=== PATIENT | female | born 1960 | race Caucasian/White ===

== ENCOUNTER 2017-12-04 20:54 | Emergency (ER) | payer MEDICAID, SELFPAY ==
[2017-12-04 20:54] VITALS: BP 162/91; PULSE 95; RESP 17; TEMP 36.5; O2SAT 90; BMI 37.8
--- NOTE | 2017-12-04 21:00 | RAD_ITS ---
STUDY: X-RAY - LEFT ANKLE REASON FOR EXAM: Female, 57 years old. Pain, injury TECHNIQUE: 3 view(s) of the ankle. COMPARISON: 04/30/2017 FINDINGS: There is no fracture. There is no osseous destruction. There is slight asymmetry of the ankle mortise. There is soft tissue swelling about the lateral malleolus. There is an ankle joint effusion. RAD/Ankle min 3 Views IMPRESSION: Soft tissue swelling about the lateral malleolus No fracture Suspicious for chronic instability Ankle joint effusion Electronically Signed: Vidal Castro MD at 21:41 EDT Tel , Service support ,
--- NOTE | 2017-12-04 22:01 | ED.DCSUM_ITS ---
- ER Visit Summary Date of Service: 12/04/17 Chief Complaint: Left ankle injury History of Present Illness: The patient is a 57 F who had surgery on her ankle in June by a physician in [place]. She states they removed tissue and cartilage. Today while showering she felt a pop in her left ankle and now has problems with weightbearing. She does not remember if she rolled her ankle. She has an appointment with that physician for follow-up on the of this month. Physical Examination: Vital signs significant for blood pressure of 162/91 and pulse ox of 90% on room air. Patient sitting upright in bed. She is alert and talkative. Head neck examination is normal. Heart is regular rate and rhythm. Lung sounds are clear. Abdomen is soft, obese, nontender. Left lower extremity examination was tenderness to palpation and edema over the lateral malleolus of the left ankle. She has strong distal pulses. There is no medial tenderness. She has no tenderness at the knee or hip. Test Results: Left ankle x-rays were obtained per nursing protocol. There is soft tissue swelling over the lateral malleolus. There is no fracture. There is suspicion for chronic instability. Emergency Department Course and Treatment: Patient will be given a single dose of oxycodone here in a home pack for tonight. She will be given a walking boot. She only has a walker at home. She is to follow-up with her orthopedist on the as scheduled. Treatment Plan: [] Disposition: Discharge Impression: Left ankle sprain This note was generated with [employer] dictation software. It may contain incorrect words, spelling, and punctuation that were not noted in review of the chart prior to signing ED Disposition - Plan for ED Patient: Chief Complaint: Lower Extremity Injury Referrals: Jose Kaplan MD [Primary Care Provider] -
--- NOTE | 2017-12-04 22:01 | ED.DEP ---
ED Disposition - Plan for ED Patient: Disposition: Home or Assisted Living Chief Complaint: Lower Extremity Injury Instructions: ED Sprain Ankle W X Ray Referrals: Jose Kaplan MD [Primary Care Provider] - Additional Instructions: Follow-up with your physician on the as scheduled.
[2017-12-04] MEDS: oxyCODONE 5 MG Tablet PO ×2 (22:14)
[2017-12-04 22:16] VITALS: BP 144/87; PULSE 86; RESP 15; O2SAT 98
== END 2017-12-04 22:23 | disposition home or self-care (01) ==
LOC: ED 22:06
PROVIDERS: Emergency Provider Emergency Medicine; Family Provider Family Medicine; PCP Family Medicine
DX: S93.402A Sprain of unspecified ligament of left ankle, initial encounter (principal); Z72.0 Tobacco use; Z79.891 Long term (current) use of opiate analgesic; X58.XXXA Exposure to other specified factors, initial encounter; Y93.E1 Activity, personal bathing and showering; Y92.002 Bathroom of unspecified non-institutional (private) residence as the place of occurrence of the external cause; Y99.8 Other external cause status
CPT/HCPCS: 73610; 99283

== ENCOUNTER 2018-01-27 18:36 | Emergency (ER) | payer MEDICAID, SELFPAY ==
[2018-01-27 18:37] VITALS: BP 172/89; PULSE 99; RESP 17; TEMP 36.4; O2SAT 99; BMI 36.0
[2018-01-27 18:56] VITALS: O2SAT 99
[2018-01-27] MEDS: Benzonatate 100 MG Capsule 200 MG PO (18:59)
[2018-01-27] MEDS: Naproxen 500 MG Tablet PO (18:59)
[2018-01-27 19:07] VITALS: PULSE 100; RESP 20
[2018-01-27] MEDS: Ipratropium/Albuterol Sulfate 3 ML AMPUL.NEB INHALATION (19:07)
--- NOTE | 2018-01-27 19:20 | RAD_ITS ---
STUDY: X-RAY CHEST REASON FOR EXAM: Female, 57 years old. Cough. TECHNIQUE: PA and lateral chest. COMPARISON: 10/21/2014. FINDINGS: The lungs are clear and expanded. There is no demonstrated pleural abnormality. Normal size heart. Normal mediastinum and mary. Normal visualized pulmonary arteries. Normal visualized aortic arch and descending thoracic aorta. Normal visualized thoracic spine. Normal visualized ribs, clavicles, and shoulders. There is no demonstrated abnormality of the visualized soft tissue structures of the upper abdomen. RAD/Chest PA and Lateral IMPRESSION: Normal x-ray examination of the chest. Electronically Signed: Pauly Christian MD at 19:30 EDT Tel , Service support ,
--- NOTE | 2018-01-27 20:20 | ED.VISSUMM ---
- ER Visit Summary Date of Service: 01/27/18 Chief Complaint: Cough History of Present Illness: The patient is a 57 F with a 2-day history of cough and congestion along with body aches. She complaints of sore throat and hoarse voice. She had subjective fevers and chills. She states that she has chest congestion, but is not been able to bring up much sputum with her cough. She is a smoker. Physical Examination: Blood pressure is 172/89, temperature 97.5, heart rate 99, respiratory rate 17, pulse ox 99% on room air. Patient sitting upright in bed. She does speak with a hoarse voice. Head neck examination reveals TMs to be clear bilaterally. She has mild posterior pharyngeal erythema. Uvula is midline. She is tolerating secretions well. Heart is regular rate and rhythm. Lung sounds are slightly diminished throughout. Abdomen is soft nontender. Test Results: Two-view chest x-ray is unremarkable. Rapid strep is negative. Emergency Department Course and Treatment: Patient was given a DuoNeb treatment here along with Tessalon Perles and Naprosyn. On repeat evaluation she does feel somewhat improved. She be given a prescription for Tessalon, albuterol inhaler, and Mucinex. Treatment Plan: [] Disposition: Discharge Impression: Viral URI This note was generated with [employer] dictation software. It may contain incorrect words, spelling, and punctuation that were not noted in review of the chart prior to signing ED Disposition - Plan for ED Patient: Chief Complaint: Cold Sx Referrals: Jose Kaplan MD [Primary Care Provider] -
--- NOTE | 2018-01-27 20:22 | ED.DEP ---
ED Disposition - Plan for ED Patient: Disposition: Home or Assisted Living Chief Complaint: Cold Sx Instructions: ED URI Viral Prescriptions: Albuterol Inhaler [Ventolin Hfa] 2 puff INHALATION Q4H PRN PRN #1 inhaler PRN Reason: Wheezing Benzonatate [Tessalon Perle] 200 mg PO TID PRN PRN #20 capsule PRN Reason: Cough Guaifenesin [Mucinex] 1,200 mg PO BID #10 tab Referrals: Jose Kaplan MD [Primary Care Provider] - 1 Week
[2018-01-27 20:28] VITALS: BP 134/85; PULSE 91; RESP 18; O2SAT 96
== END 2018-01-27 20:28 | disposition home or self-care (01) ==
PROVIDERS: Emergency Provider Emergency Medicine; Family Provider Family Medicine; PCP Family Medicine
DX: J06.9 Acute upper respiratory infection, unspecified (principal); F17.200 Nicotine dependence, unspecified, uncomplicated
CPT/HCPCS: 71046; 87880; 94640; 99283; A4216

== ENCOUNTER 2018-06-15 20:21 | Inpatient (IN) | payer MEDICAID, SELFPAY ==
[2018-06-15] VITALS (9 sets, daily range): BP systolic 98–181; BP diastolic 79–158; PULSE 153–180; RESP 18–53; TEMP 36.6–36.7; O2SAT 87–94; BMI 40.7; BMI 40.4; BMI 40.5
--- NOTE | 2018-06-15 20:40 | RAD_ITS ---
STUDY: X-RAY CHEST REASON FOR EXAM: Female, 58 years old. Dyspnea with shortness of breath TECHNIQUE: AP COMPARISON: 01/27/2018 FINDINGS: EKG leads project over the chest. Dense consolidation of the right lung base with distinct line along the superior margin. Small right pleural effusion. Patchy infiltrate along the left heart border is also identified. Normal size heart. Normal mediastinum and mary. Normal visualized pulmonary arteries. Normal visualized aortic arch and descending thoracic aorta. Normal visualized thoracic spine. Normal visualized ribs, clavicles, and shoulders. There is no demonstrated abnormality of the visualized soft tissue structures of the upper abdomen. RAD/Chest 1 View (Portable) IMPRESSION: 1. Right lower lobe airspace disease. Given distinct margin along the superior border, an air-fluid level cannot be excluded. Chest CT may be warranted. 2. Mild infiltrate in the left lung base could also represent pneumonia. Electronically Signed: Alejandro Arizmendi MD at 21:01 EST , Service support ,
--- NOTE | 2018-06-15 20:41 | EKG12_ITS ---
Test Reason : SOB Blood Pressure : / mmHG Vent. Rate : 226 BPM Atrial Rate : 159 BPM P-R Int : 000 ms QRS Dur : 068 ms QT Int : 182 ms P-R-T Axes : 000 048 121 degrees QTc Int : 353 ms Atrial fibrillation with rapid ventricular response with premature ventricular or aberrantly conducte d complexes Nonspecific ST and T wave abnormality Abnormal ECG Confirmed by SAMANTHA CHRISTIAN, KORI ([id number]), news editor TAMMIE WHEELER ([id number]) on 06/18/2018 10:06:30 AM Referred By: LORENA Confirmed By:KORI SINGH MD
[2018-06-15] MEDS: 0.9% Normal Saline 1,000 ML 150 ML IV (20:45)
[2018-06-15] MEDS: dilTIAZem 25 MG/5 ML Vial IV BOLUS ×2 (20:45→21:04)
[2018-06-15 21:17] LABS: Anion Gap 15 (5-15); BUN 57 mg/dL (7-18); BUN/Creat Ratio 30.8 RATIO (10-20); Calcium,Total 8.8 mg/dL (8.5-10.1); Chloride 98 mmol/L (98-107); Creatinine, Serum 1.85 mg/dL (0.55-1.02); EST Glomerular Filtration Rate 30 mL/min (>60); Est Glom Filt Rate - Afr Amer 36 mL/min (>60); Estimated Creatinine Clearance 29.32 ml/min; Glucose 144 mg/dL (74-106); Potassium 3.4 mmol/L (3.5-5.1); Sodium Level 135 mmol/L (136-145)
[2018-06-15 21:20] LABS: Absolute Lymphocyte Count 1.34 X10^3/ul (0.83-4.51); Basophil# 0.04 X10^3/uL; Basophil% 0.3 % (0-1); Hematocrit 49.7 % (37-47); Hemoglobin 16.8 g/dl (12.0-15.0); Lymphocyte # 1.34 X10^3/ul (4.0); Lymphocyte % 9.5 % (19-41); Mean Corp Hgb Conc 33.8 g/gl (32-36); Mean Corpuscular Hgb 29.4 pg (27.0-32.0); Mean Corpuscular Volume 86.9 fL (81-99); Monocyte# 0.58 X10^3/uL; Monocyte% 4.1 % (0-10); Neutrophil # 12.02 X10^3/uL (2.7-7.7); Neutrophil % 85.7 % (47-70); Platelet Count 190 K/mm3 (150-450); RBC Distribution Width CV 14.8 % (11.6-14.6); Red Blood Count 5.72 M/mm3 (4.2-5.4)
[2018-06-15 21:26] LABS: Differential Indicated SCAN CRITERIA MET; POSITIVE COUNT NO; POSITIVE DIFFERENTIAL NO; POSITIVE MORPHOLOGY YES
[2018-06-15 21:40] LABS: Lactic Acid 3.8 mmol/L (0.4-2.0)
--- NOTE | 2018-06-15 21:44 | ED.RN ---
dr. ontiveros aware of critical lactic 3.8
--- NOTE | 2018-06-15 21:50 | ED.VISSUMM ---
- ER Visit Summary Date of Service: 06/15/18 Chief Complaint: [Shortness of breath] History of Present Illness: The patient is a 58 F [presents to the emergency department with 2-day history of increasing shortness of breath. Patient also had a fever up to 103 at home and a cough. Patient denies any chest pain. She denies any palpitations or racing heart. Patient states she has had a cough but is been nonproductive. She denies recent travel or surgery. She tells me she has no medical history.] Physical Examination: [HEENT-PERRLA, EOMI. Cranial nerves II through XII grossly intact. TMs clear. Mucous membranes moist. No adenopathy. Cardiovascular-irregularly irregular and tachycardic with heart rate in the 220s. No murmurs auscultated. Lungs-diminished breath sounds bilaterally. Patient is tachypneic. No accessory muscle use or retractions. Abdomen-normoactive bowel sounds, soft, nontender, no rebound or rigidity, no peritoneal signs. Extremities-intact ?4, normal range of motion, normal pulses, atraumatic] Test Results: [EKG obtained showed atrial fibrillation with rapid ventricular response with ventricular rate of 226. Patient had nonspecific ST changes noted. CBC with differential obtained showed a white count of 14,000, hemoglobin 16.8, hematocrit 50, platelets 190. Chemistries unremarkable. BUN was 57 and creatinine 1.85. Troponin was less than 0.015. Chest x-ray showed left lower lobe infiltrate suspicious for pneumonia and also a right lung air-fluid level and recommended obtaining a CT scan of the chest.] Emergency Department Course and Treatment: [Patient was given Cardizem 20 mg IV bolus followed by 25 mg IV bolus and started on a Cardizem drip. Patient was started on heparin at the request of hospitalist. Patient was started on Levaquin for suspected community-acquired pneumonia. Blood cultures were ordered. Patient was ordered normal saline fluid boluses.] Treatment Plan: [Admit] Disposition: [Admit] Impression: [Uday kellogg RVR-new onset Community acquired pneumonia Severe sepsis] This note was generated with [employer] dictation software. It may contain incorrect words, spelling, and punctuation that were not noted in review of the chart prior to signing ED Disposition - Plan for ED Patient: Referrals: Jose Kaplan MD [Primary Care Provider] -
[2018-06-15] MEDS: 0.9% Normal Saline 1,000 ML 999 ML IV (21:54)
[2018-06-15 21:55] LABS: Platelet Estimate ADEQUATE (ADEQ); Platelet Morphology LARGE; Red Cell Morphology NORM C+C NORMAL (NORM C&C)
--- NOTE | 2018-06-15 21:56 | ED.DCSUM_ITS ---
- ER Visit Summary Date of Service: 06/15/18 Chief Complaint: [Shortness of breath] History of Present Illness: The patient is a 58 F [presents to the emergency department with 2-day history of increasing shortness of breath. Patient also had a fever up to 103 at home and a cough. Patient denies any chest pain. She denies any palpitations or racing heart. Patient states she has had a cough but is been nonproductive. She denies recent travel or surgery. She tells me she has no medical history.] Physical Examination: [HEENT-PERRLA, EOMI. Cranial nerves II through XII grossly intact. TMs clear. Mucous membranes moist. No adenopathy. Cardiovascular-irregularly irregular and tachycardic with heart rate in the 220s. No murmurs auscultated. Lungs-diminished breath sounds bilaterally. Patient is tachypneic. No accessory muscle use or retractions. Abdomen-normoactive bowel sounds, soft, nontender, no rebound or rigidity, no peritoneal signs. Extremities-intact ?4, normal range of motion, normal pulses, atraumatic] Test Results: [EKG obtained showed atrial fibrillation with rapid ventricular response with ventricular rate of 226. Patient had nonspecific ST changes noted. CBC with differential obtained showed a white count of 14,000, he moglobin 16.8, hematocrit 50, platelets 190. Chemistries unremarkable. BUN was 57 and creatinine 1.85. Troponin was less than 0.015. Chest x-ray showed left lower lobe infiltrate suspicious for pneumonia and also a right lung air-fluid level and recommended obtaining a CT scan of the chest.] Emergency Department Course and Treatment: [Patient was given Cardizem 20 mg IV bolus followed by 25 mg IV bolus and started on a Cardizem drip. Patient was started on heparin at the request of hospitalist. Patient was started on Levaquin for suspected community-acquired pneumonia. Blood cultures were ordered. Patient was ordered normal saline fluid boluses.] Treatment Plan: [Admit] Disposition: [Admit] Impression: [Uday kellogg RVR-new onset Community acquired pneumonia Severe sepsis] This note was generated with [employer] software. It may contain incorrect words, spelling, and punctuation that were not noted in review of the chart prior to signing ED Disposition - Plan for ED Patient: Referrals: Jose Kaplan MD [Primary Care Provider] -
[2018-06-15 22:06] LABS: Partial Thromboplast Time 31.3 Seconds (24.1-36.2)
[2018-06-15] MEDS: HEPARIN/D5w 25,000 UNITS 25,000 UNITS/250 ML IV.SOLN. 15 UNITS IV (22:07)
[2018-06-15] MEDS: levoFLOXacin IV 750 MG/150 ML BAG 100 MG IV (22:07)
[2018-06-15 22:25] LABS: BNP,B-Type NATRIURETIC PEPTIDE 159.1 pg/mL (0-100)
--- NOTE | 2018-06-15 22:36 | PCM.HP.STD ---
Problem List (1) Severe sepsis Status: Acute (2) Acute respiratory failure with hypoxia Status: Acute (3) Pneumonia Status: Acute Qualifiers: Pneumonia type: due to unspecified organism Laterality: bilateral Lung location: lower lobe of lung Qualified Code(s): J18.1 - Lobar pneumonia, unspecified organism (4) Atrial fibrillation with RVR Status: Acute (5) LYNNETTE (acute kidney injury) Status: Acute (6) Morbid obesity Status: Chronic (7) Tobacco use Status: Chronic History of Present Illness Date of Admission: 06/15/18 Chief Complaint: Dyspnea, cough, fever, chills. The patient is a 58 y/o F w/ PMHx: Tobacco use, Morbid Obesity who does not regularly seek medication evaluation who presents to the [facility] ED on 06/15/18 with history of ongoing, progressively worsening dyspnea, minimally productive cough with associated fevers and chills with poor oral intake x 4 days. In the ED upon evaluation she denies any recent palpitations or chest pain associated. In the ED work-up included T 98.1, heart rate 180--> 165, BP 174/100,--> 38/85, oxygenation 87% on 5 L nasal cannula initially with a respiratory rate of 18--> respiratory rate 38, 92% on a Ventimask, CBC w/ WBC 14, Hgb 16.8, Plt 190 with L shift, BMP Na 135, K 3.4, BUN/Cr 57/1.85, glucose 144, LA 3.8, trop < 0.015, BNP 159.1, given respiratory appearance requested respiratory therapy to obtain ABG which is not severe appearing despite notable tachypnea and intermittent desaturations with pH 7.4, O2 saturation 94, O2 percent 50, PCO2 36, PO2 69, EKG with atrial fibrillation with RVR, chest x-ray with right lower lobe airspace disease with concern for an air-fluid level given a very distinct margin along the superior border, mild infiltrate of the left lung base concerning for pneumonia. In the ED patient administered Cardizem 25 mg IV bolus x2 without market improvement and eventual transition to Cardizem drip, Levaquin 750 mg IV x1, potassium 40 mg p.o. x1, normal saline. Given patient appearance upon admission notify Dr. Wolf as well as Dr. Chavez. Past Medical History Past Medical History (Chronic Problems): Chronic Problems Morbid obesity (Chronic) Tobacco use (Chronic) Allergies aspirin Allergy (Verified 06/15/18 20:31) Swelling erythromycin base [Erythromycin Base] Allergy (Verified 06/15/18 20:31) Anaphylaxis Penicillins Allergy (Verified 06/15/18 20:31) Anaphylaxis venom-honey bee [bee venom (honey bee)] Adverse Reaction (Verified 06/15/18 20:31) Other Home Medications: Ambulatory Orders Medication Instructions Recorded NK 06/15/18 Surgical History: - - Left ankle surgery, left arm carpal tunnel surgery, tonsillectomy. Psychiatric History: - - She denies any psychiatric history but following evaluation suspect she has underlying anxiety and depression, possibly other psychiatric illnesses. 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 Smoking Status: Current every day smoker - Patient notes that she is currently smoking 2-3 cigarettes/day. Tobacco Use: Cigarettes Alcohol: None Drugs: None - *Family History Maternal History Items: - - Patient denies any marked maternal or paternal family history including heart disease, diabetes or cancer. Paternal History Items: - - Patient denies any marked maternal or paternal family history including heart disease, diabetes or cancer. Review of Systems Constitutional: Reports: Anorexia, Chills, Fever, Malaise, Weakness, Fatigue. Denies: Weight Change HEENT: Reports: Sinus Congestion, Sore Throat. Denies: Head Aches, Sinus Drainage Cardiovascular: Denies: Chest Pain, Palpitations Respiratory: Reports: Cough, Shortness of Breath, Shortness of breath at rest, Shortness of breath upon exertion, Sputum production - Minimal. Gastrointestinal: Denies: Abdominal Pain, Nausea, Vomiting Genitourinary: Denies: Dysuria Musculoskeletal: Reports: Joint Pain, Muscle pain. Denies: Joint Tenderness Skin: Denies: Rash, Wounds Neurological: Denies: Numbness, Tingling, Focal weakness Psychiatric: Reports: Anxiety. Denies: Depression, Homicidal Ideations, Suicidal Ideations Hematologic/ Lymphatic: Denies: Easy Bruising, Easy Bleeding VTE Information - Inpt Only VTE Present on Admission: No VTE Mechan Device Prophylaxis: SCD's VTE Pharm Prophylaxis ordered?: Yes Patient Problems: Active and Suspected Problems Severe sepsis (Acute) Acute respiratory failure with hypoxia (Acute) Pneumonia (Acute) Atrial fibrillation with RVR (Acute) LYNNETTE (acute kidney injury) (Acute) Subjective: Seated upright in the ED bed, mildly agitated, rocking back and forth, wishing not to have to stay, ongoing increased respiratory rate, mild accessory muscle usage, heart rate remains 150-160 while evaluating. Objective: Physical Examination: General: awake, alert, oriented x 3, intermittently cooperative, seated upright in ED bed, mildly agitated, increased respiratory rate, some accessory muscle usage, desaturating while in the ED on Ventimask, ongoing severe tachycardia. Skin: normal color, turgor, no icterus, cyanosis. HEENT: AT/NC, EOMI, PERRLA, dry MM, no carotid bruits or JVD noted. Lungs: Managed breath sounds bilaterally, right greater than left, mildly coarse, increased respiratory rate, some accessory muscle usage, no wheezing noted. Heart: Irregular irregular; no gallop, rub audible. Abdomen: soft, obese, NTTP, ND, normal BS, no HSM; her habitus makes examination difficult. Extremities: no cyanosis, clubbing, bilateral lower extremity mild ankle, nonpitting edema. Neurological: patient awake, alert, oriented x 3; cognitive function is back to baseline intact with suspected possible psychiatric disease; pupils equally reactive to light and accomodation; cranial nerves II-XII grossly normal, moving all 4 extremities, no focal deficits, strength severely globally decreased secondary to acute presentation. Psychiatric: affect appears agitated, notes she dislikes the hospital and physicians, appears anxious, no acute evidence of depressive feelings. - Physical Exam Vital Signs Temp Pulse Resp BP Pulse Ox 98.1 F 158 H 39 H 140/118 H 92 06/15/18 20:22 06/15/18 21:21 06/15/18 21:21 06/15/18 21:21 06/15/18 21:21 Oxygen Flow Rate (L/min) 5 Oxygen Delivery Method Venturi Mask Weight: 237 lb 7.005 oz Body Mass Index (BMI) 40.7 Laboratory Tests Past 24 Hrs 06/15/18 06/15/18 06/15/18 20:15 20:31 20:31 WBC 14.0 H RBC 5.72 H Hgb 16.8 H Hct 49.7 H MCV 86.9 MCH 29.4 MCHC 33.8 RDW 14.8 H RDW Differential 47.0 H Plt Count 190 MPV 12.0 Immature Gran % (Auto) 0.400 Neut % (Auto) 85.7 H Lymph % (Auto) 9.5 L Arthur % (Auto) 4.1 Eos % (Auto) 0.0 Baso % (Auto) 0.3 Absolute Neuts (auto) 12.0 H Absolute Lymphs (auto) 1.34 Total Counted Not Reportable Platelet Estimate ADEQUATE Plt Morphology Comment LARGE RBC Morphology NORM C+C APTT 31.3 Sodium 135 L Potassium 3.4 L Chloride 98 Carbon Dioxide 22.0 Anion Gap 15 BUN 57 H Creatinine 1.85 H Estim Creat Clear Calc 29.32 Est GFR (MDRD) Af Amer 36 L Est GFR (MDRD) Non-Af 30 L BUN/Creatinine Ratio 30.8 H Glucose 144 H Lactic Acid Calcium 8.8 Troponin I < 0.015 B-Natriuretic Peptide 06/15/18 06/15/18 20:31 20:50 WBC RBC Hgb Hct MCV MCH MCHC RDW RDW Differential Plt Count MPV Immature Gran % (Auto) Neut % (Auto) Lymph % (Auto) Arthur % (Auto) Eos % (Auto) Baso % (Auto) Absolute Neuts (auto) Absolute Lymphs (auto) Total Counted Platelet Estimate Plt Morphology Comment RBC Morphology APTT Sodium Potassium Chloride Carbon Dioxide Anion Gap BUN Creatinine Estim Creat Clear Calc Est GFR (MDRD) Af Amer Est GFR (MDRD) Non-Af BUN/Creatinine Ratio Glucose Lactic Acid 3.8 H Calcium Troponin I B-Natriuretic Peptide 159.1 H Assessment/Plan All Active Problems Severe sepsis (Acute) Acute respiratory failure with hypoxia (Acute) Pneumonia (Acute) Atrial fibrillation with RVR (Acute) LYNNETTE (acute kidney injury) (Acute) The patient is a 58 y/o F w/ PMHx: Tobacco use, Morbid Obesity who does not regularly seek medication evaluation who presents to the [facility] ED on 06/15/18 with history of ongoing, progressively worsening dyspnea, minimally productive cough with associated fevers and chills with poor oral intake x 4 days. In the ED upon evaluation she denies any recent palpitations or chest pain associated. (1) Acute Severe Sepsis secondary to Acute Hypoxic Respiratory Failure secondary to Community Acquired Pneumonia; however, concern for Air-Fluid Level R sided, ? empyema: ED work-up included T 98.1, heart rate 180--> 165, BP 174/100,--> 38/85, oxygenation 87% on 5 L nasal cannula initially with a respiratory rate of 18--> respiratory rate 38, 92% on a Ventimask, CBC w/ WBC 14, Hgb 16.8, Plt 190 with L shift, BMP Na 135, K 3.4, BUN/Cr 57/1.85, glucose 144, LA 3.8, trop < 0.015, BNP 159.1, given respiratory appearance requested respiratory therapy to obtain ABG which is not severe appearing despite notable tachypnea and intermittent desaturations with pH 7.4, O2 saturation 94, O2 percent 50, PCO2 36, PO2 69, EKG with atrial fibrillation with RVR, chest x-ray with right lower lobe airspace disease with concern for an air-fluid level given a very distinct margin along the superior border, mild infiltrate of the left lung base concerning for pneumonia. Will admit to ICU, given status requested RT evaluation for CPAP/BIPAP, maintain on oxygen with wean as tolerated to room air, continue ATC duonebs, PRN albuterol, maintained on IV Levaquin, HOB, IS parameters w/ pending sputum cultures, respiratory viral panel and urine antigens. Bld cx x 2 obtained in the ED. ICU physician consulted and aware. Given patient presentation and notable paroxysmal atrial fibrillation with onset respiratory symptoms may need to consider CTPA in addition however given LYNNETTE will need to hydrate and reassess in a.m. Regardless, will need CT chest of some form given right-sided findings. (2) New onset, Paroxsymal atrial fibrillation w/ RVR: EKG in ED w/ atrial fibrillation w/ RVR. Patient administered notable 25 mg Cardizem IV x2 and transition to a Cardizem drip in ED. Will maintain on telemetry, obtain cardiac enzyme serial set, obtain magnesium level, obtain ECHO, obtain TSH level. Initiated on heparin drip given presentation. Cardiology consulted and aware, evaluation in a.m. Given ongoing patient notable tachycardia despite Cardizem drip may require additional agent, will consider amiodarone versus digoxin if needed. (2) Acute kidney injury: Secondary to acute presentation #1, poor intake. Admission BUN/Cr 57/1.85, prior baseline creatinine noted to be 0.9. Will hydrate, hold nephrotoxic medications and repeat chemistry in AM. Pending FeNa assessment. If not improving will need to consider renal ultrasound. (3) Hyponatremia, Mild: Admission Na 135, likely hypovolemic, secondary to acute presentation as noted above #1, #2, #3, dehydration, repeat BMP in a.m. (4) Hyperglycemia: Admission glucose 144, HgbA1c pending. (5) Tobacco Abuse: Encouraged cessation, inpatient consultation per RT, NR if desired. (6) Morbid Obesity: Weight loss and lifestyle changes encouraged, nutrition consulted. (7) DVT prophylaxis: SCD, heparin drip. (8) CODE status: Patient sister is her healthcare power of patent attorney and she notes living will is in place. Discussed CODE status at length including difference between FULL code, DNR-CCA and DNR-CC status. Following discussions about the differences in these status, requested full code status. Advanced Care Planning Face to Face Time: 16 minutes. Code Visit Inpatient E&M: 61249 Init Hosp L3 Procedures: 86637 Advncd Care Plan 30 Min
[2018-06-15 23:06] LABS: Allen Test POS; Base Excess -3 mmol/L (-2 to +2); Bicarbonate 22.3 mmol/L (22-26); Blood Gas Specimen Type ART; FI02 50; PO2 69 mmHG (75-100); SITE L Radial; SO2 94 % (95-99); Time Given 2250; Total Carbon Dioxide 23 mmol/L
--- NOTE | 2018-06-15 23:41 | NURSING ---
Has cell phone at bedside. Jacket, slippers, shirt and pants.
[2018-06-15 23:51] LABS: Hemoglobin A1c 5.7 % (4.2-6.3)
[2018-06-15 23:52] LABS: Phosphorus 2.8 mg/dL (2.5-4.9); Thyroid Stim Hormone (TSH) 0.52 uIU/mL (0.358-3.74)
[2018-06-16] VITALS (103 sets, daily range): BP systolic 49–145; BP diastolic 33–119; PULSE 64–166; RESP 12–62; TEMP 37.1–39.1; O2SAT 91–100
[2018-06-16] MEDS: Ipratropium/Albuterol Sulfate 3 ML AMPUL.NEB INHALATION ×4 (00:05→18:34)
[2018-06-16 00:54] LABS: Reflex Lactate? Y
[2018-06-16] MEDS: Metoprolol Tartrate 5 MG/5 ML Vial IV (01:24)
[2018-06-16] MEDS: LORazepam 2 MG/ML Syringe 0.5 MG IV (01:25)
[2018-06-16] MEDS: 0.9% NaCl Peripheral Flush Adult/Peds IV ×3 (01:26→03:38)
[2018-06-16 01:52] LABS: Lactic Acid 1.7 mmol/L (0.4-2.0)
[2018-06-16] MEDS: 0.9% Normal Saline 1,000 ML 150 ML IV ×2 (02:57→04:27)
--- NOTE | 2018-06-16 03:00 | NURSING ---
Nurse entered room. Pt sitting up with BiPap mask in her lap. Pt animate about leaving AMA. Explained to pt the severity of the decision, and the possibility of , if she were to do so. Pt was able to answer all orientation questions appropriately, and continued to refuse care as planned. Left room and Dr. Hoang odonnell. Reported to Dr. marin pt's desire to leave AMA. Form printed and presented to pt for signature and attempt to negotiate with pt to stay and allow us to treat her overnight. Pt still refused. Pt sitting with legs crossed, style, and tripoding with respiratory rate in 40's-50's, while discussing AMA. Head lowered more, and nurse asked another question. Pt speech was slurred and incoherent. Positioned pt with shoulders back and pt was unresponsive. At 3:08 pt was unresponsive, with no pulse, and asystole on the monitor. Chest compressions started and Ladan Ferguson was called.
--- NOTE | 2018-06-16 03:02 | NURSING ---
This RN is made aware by pt's primary RN, Suman Moreno, pt wishing to leave AMA. Upon entering room pt sitting up in bed in tripod position with labored breathing, BiPAP mask in pt's hand laying on lap. Pt is firmly instructed that leaving hospital may be detrimental to pt's life considering work of breathing. This RN attempting to place BiPAP mask on pt and pt will not cooperate. Pt able to correctly answer orientation questions. Primary RN, Suman Moreno, bedside has made Dr. Bolton aware.
--- NOTE | 2018-06-16 03:08 | NURSING ---
Pt has become unresponsive to sternal rub, agonal respirations with cyanosis observed around mouth. Bag mask ventilation initiated, monitor reading asystole, no carotid or femoral pulses palpable. Code Blue is called by this RN at 0308, Chest compressions initiated by primary RN, Suman Moreno. See Code documentation.
[2018-06-16] MEDS: fentaNYL drip 100 ML 2.5 MCG IV ×2 (03:40→22:26)
--- NOTE | 2018-06-16 03:40 | RAD_ITS ---
STUDY: X-RAY - ABDOMEN/PELVIS REASON FOR EXAM: Female, 58 years old. An NG tube placement TECHNIQUE: 1 view COMPARISON: None. FINDINGS: The tip of a feeding tube is around the gastroesophageal junction. It needs to be standard distended about 10 to 15 cm. Electronically Signed: Kwesi Whalen MD at 5:01 EST Tel , Service support , RAD/Abdomen Single View
--- NOTE | 2018-06-16 03:40 | RAD_ITS ---
STUDY: X-RAY CHEST REASON FOR EXAM: Female, 58 years old. CODE BLUE TECHNIQUE: 1 view COMPARISON: None. FINDINGS: Improving consolidations in both lower lobes. The heart is enlarged. An NG tube and ET tube in place with the ET tube 5.3 cm above the isai. Normal visualized thoracic spine. Normal visualized ribs, clavicles, and shoulders. There is no demonstrated abnormality of the visualized soft tissue structures of the upper abdomen. RAD/Chest 1 View (Portable) IMPRESSION: NG tube and ET tube in place with the ET tube 5.3 cm above the isai. Improving consolidations in both lower nodes Electronically Signed: Kwesi Whalen MD at 4:59 EST Tel , Service support ,
--- NOTE | 2018-06-16 03:55 | PCM.HOSP.N ---
Hospitalist Note Intubation Note/CODE BLUE Note: Called by nursing staff the patient was very eager to leave despite frequent discussions that her respiratory status would be compromised. Hospitalist physician was contacted and nearly to the ICU to review options with the patient she was noted to remove her BIPAP and went about leaving AMA following which her oxygenation decreased and she became unresponsive. CODE BLUE was called. Patient was noted to be in asystole. CPR was initiated. Normal saline continued however patient drips were discontinued at that time temporarily. Hospitalist physician arrived and patient was administered epinephrine every 3 minutes times a total of 4 rounds during CODE BLUE with repeat rhythm check x2 pulseless patient intubated with a 7.5 ET tube with glide scope successfully entered fashion with visualization of the vocal cords with position verified with auscultation and color change during CODE BLUE. Patient had resumption of pulse at that time was noted to be in atrial fibrillation with pulse by Doppler. OG placed. CXR post intubation and OG placement requested and ABG requested. Patient map 61, HR 70s and noted to convert to sinus rhythm. Cardiology and ICU physician updated. Given patient ongoing low map requested initiation of low-dose norepinephrine. Family reached, Daughter who noted plan to present to the hospital. Following CODE blue, patient alert, answering questions with head node. Discussed need to remain intubated, noted to her possibility of chest soreness secondary to recent cardiac arrest secondary to likely pulmonary failure. She noted understanding to continue inpatient acute care given her status. We updated her that her daughter was contacted and on route to the hospital. Critical Care Time: 61 minutes, time from 3:05-4:06 am, were spent addressing patients critical care needs including code blue management as noted above, review of all data in collaboration with care team in addition to discussion with family. Code Visit Procedures: Other Procedure - See Report - [id number] critical care 1st hour and [id number] Insertion Emergency Airway
--- NOTE | 2018-06-16 04:10 | CCHN_ITS ---
Hospitalist Note Intubation Note/CODE BLUE Note: Called by nursing staff the patient was very eager to leave despite frequent discussions that her respiratory status would be compromised. Hospitalist physician was contacted and nearly to the ICU to review options with the patient she was noted to remove her BIPAP and went about leaving AMA following which her oxygenation decreased and she became unresponsive. CODE BLUE was called. Patient was noted to be in asystole. CPR was initiated. Normal saline continued however patient drips were discontinued at that time temporarily. Hospitalist physician arrived and patient was administered epinephrine every 3 minutes times a total of 4 rounds during CODE BLUE with repeat rhythm check x2 pulseless patient intubated with a 7.5 ET tube with glide scope successfully entered fashion with visualization of the vocal cords with position verified with auscultation and color change during CODE BLUE. Patient had resumption of pulse at that time was noted to be in atrial fibrillation with pulse by Doppler. OG placed. CXR post intubation and OG placement requested and ABG requested. Patient map 61, HR 70s and noted to convert to sinus rhythm. Cardiology and ICU physician updated. Given patient ongoing low map requested initiation of low- dose norepinephrine. Family reached, Daughter who noted plan to present to the hospital. Following CODE blue, patient alert, answering questions with head node. Discussed need to remain intubated, noted to her possibility of chest soreness secondary to recent cardiac arrest secondary to likely pulmonary failure. She noted understanding to continue inpatient acute care given her status. We updated her that her daughter was contacted and on route to the hospital. Critical Care Time: 61 minutes, time from 3:05-4:06 am, were spent addressing patients critical care needs including code blue management as noted above, review of all data in collaboration with care team in addition to discussion with family. Code Visit Procedures: Other Procedure - See Report - [id number] critical care 1st hour and [id number] Insertion Emergency Airway
[2018-06-16 04:24] LABS: Hematocrit 45.7 % (37-47); Hemoglobin 14.8 g/dl (12.0-15.0); Mean Corp Hgb Conc 32.4 g/gl (32-36); Mean Corpuscular Hgb 29.4 pg (27.0-32.0); Mean Corpuscular Volume 90.7 fL (81-99); Mean Platelet Vol. 12.1 fl (6.2-12.0); Platelet Count 164 K/mm3 (150-450); RBC Distribution Width CV 15.1 % (11.6-14.6); RBC Distribution Width SD 50.3 fl (35.1-43.9); Red Blood Count 5.04 M/mm3 (4.2-5.4); White Blood Count 16.2 K/mm3 (4.4-11.0)
[2018-06-16 04:31] LABS: Partial Thromboplast Time 67.6 Seconds (24.1-36.2)
[2018-06-16 04:33] LABS: Differential Indicated MANUAL DIFF; POSITIVE COUNT YES; POSITIVE DIFFERENTIAL NO; POSITIVE MORPHOLOGY YES
[2018-06-16 04:34] LABS: Magnesium 2.6 mg/dL (1.6-2.6); Phosphorus 8.5 mg/dL (2.5-4.9)
[2018-06-16 04:43] LABS: ALB/GLOB Ratio 0.5 RATIO (0.9-2.4); AST(SGOT) 546 U/L (15-37); Alanine Aminotransfer ALT/SGPT 203 U/L (13-56); Albumin, Serum 2.1 g/dL (3.2-5.0); Alkaline Phosphatase 69 U/L (45-117); Anion Gap 16 (5-15); BUN 53 mg/dL (7-18); BUN/Creat Ratio 29.9 RATIO (10-20); Calcium,Total 7.9 mg/dL (8.5-10.1); Chloride 102 mmol/L (98-107); Creatinine, Serum 1.77 mg/dL (0.55-1.02); EST Glomerular Filtration Rate 32 mL/min (>60); Est Glom Filt Rate - Afr Amer 38 mL/min (>60); Estimated Creatinine Clearance 30.65 ml/min; Globulin 4.4 g/dL (2.2-4.2); Glucose 195 mg/dL (74-106); Potassium 4.4 mmol/L (3.5-5.1); Protein, Total 6.5 g/dL (6.4-8.2); Sodium Level 138 mmol/L (136-145)
--- NOTE | 2018-06-16 05:41 | CPS ---
ABG attempted x3 by 2 OCCUPATIONAL THERAPY PROFESSOR's, not unable to obtain ABG at this time. RN Nydia karimi
--- NOTE | 2018-06-16 05:55 | ECHOCS_ITS ---
Reason For Study: Afib/Flutter Procedure This was a 2D Doppler, Color Flow transthoracic echocardiogram. Contrast injection was performed. Exam performed portable in ICU/CCU. Left Ventricle Normal LV size. The estimated ejection fraction is 40 %. There is mild to moderate global hypokinesis of the left ventricle. Right Ventricle Normal RV size. Normal systolic function. Atria The left atrium is not well visualized. The right atrium is not well visualized. Mitral Valve Normal mitral valve. Tricuspid Valve The tricuspid valve is not well visualized. Aortic Valve The aortic valve is not well visualized. Pulmonic Valve The pulmonic valve is not well visualized. Great Vessels Normal aortic root. The pulmonary artery is normal size. Normal inferior vena cava. Pericardium/Pleural No pericardial effusion. Medication Diluted definity 5ml given slow IV push to enhance endocardial definition. MMode/2D Measurements & Calculations LVIDd: 5.0 cm IVSd: 1.2 cm LAV(MOD-sp4): 48.4 ml LVIDs: 4.0 cm LVPWd: 0.97 cm FS: 19.8 % LVAd ap4: 27.9 cm2 SV(MOD-sp4): 44.6 ml SV(sp4-el): 48.1 ml EDV(MOD-sp4): 94.6 ml EDV(sp4-el): 100.1 ml LVAs ap4: 18.8 cm2 ESV(MOD-sp4): 50.1 ml ESV(sp4-el): 52.0 ml EF(MOD-sp4): 47.1 % EF(sp4-el): 48.1 % LA A4 area: 18.1 cm2 Time Measurements MV dec time: 0.27 sec Doppler Measurements & Calculations MV E max keren: 59.6 cm/sec MV V2 max: 86.1 cm/sec MV P1/2t max keren: 80.8 cm/sec MV A max keren: 76.2 cm/sec MV max P.0 mmHg MV P1/2t: 53.4 msec MV E/A: 0.78 MV V2 mean: 50.7 cm/sec MV dec slope: 443.2 cm/sec2 MV mean P.2 mmHg MVA(P1/2t): 4.1 cm2 MV V2 VTI: 18.1 cm Ao V2 max: 101.1 cm/sec LV V1 max: 74.0 cm/sec Ao max P.1 mmHg LV V1 max P.2 mmHg Interpretation Summary Normal LV size. The estimated ejection fraction is 40 %. There is mild to moderate global hypokinesis of the left ventricle. Contrast injection was performed. Ordering Physician: Erlinda Bolton Referring Physician: Jose Kaplan Performed By: Jluis Varghese RCS
--- NOTE | 2018-06-16 05:55 | EKG12_ITS ---
Test Reason : POST CARDIAC ARREST Blood Pressure : / mmHG Vent. Rate : 079 BPM Atrial Rate : 079 BPM P-R Int : 168 ms QRS Dur : 142 ms QT Int : 404 ms P-R-T Axes : 031 075 031 degrees QTc Int : 463 ms Normal sinus rhythm Right bundle branch block Abnormal ECG Confirmed by PETER CHRISTIAN, LUIS ([id number]), dictionary editor TAMMIE WHEELER ([id number]) on 06/19/2018 10:24:05 AM Referred By: JOSE Confirmed By:LUIS GREEN MD
--- NOTE | 2018-06-16 06:30 | PCM.CON.CC ---
Reason for Consult Date of Consultation: 06/16/18 Reason for Consultation: Septic shock and acute respiratory failure History of Present Illness: The patient is a 58-year-old female, with a history as outlined below, who presented to the emergency department on June 15 with complaints of shortness of breath, productive cough and fever. The patient reportedly has a history of depression and prior suicidal ideations. She is also an active smoker. Very little information about her past medical history and the symptoms leading up to her hospitalization were able to be obtained, due to the patient's clinical state. On presentation to the emergency department, the patient was initially noted to be afebrile, tachycardic with a heart rate of 180 and hypertensive with a blood pressure of 174/100 mmHg. She was hypoxic requiring a Ventimask to maintain oxygen saturations. Laboratory evaluation revealed elevated white blood cell count of 14,000. Chemistry profile was notable for a sodium of 135, potassium 3.4, and creatinine of 1.85, which is an acute increase from previous. Lactate was elevated to 3.8. Troponin was negative. Initial plain film chest x-ray revealed a right lower lobe consolidation. EKG in the emergency department revealed atrial fibrillation with a rapid ventricular rate. The patient was treated with IV Cardizem and subsequently started on a drip. The patient was given Levaquin for community-acquired pneumonia. The patient was also started on BiPAP due to respiratory distress. A heparin drip was also started. She was subsequently transferred to the medical intensive care unit for further management. Overnight, the patient reportedly became very anxious and despite recommendations to continue to utilize noninvasive positive pressure ventilation as ordered, the patient removed her BiPAP with intentions to leave AGAINST MEDICAL ADVICE. A short time later, the patient became profoundly hypoxemic and unresponsive. A CODE BLUE was called. ACLS was subsequently initiated. The patient received 4 rounds of ACLS and an advanced airway was placed. ROSC was achieved. Of note, the patient had received a bolus of amiodarone and was subsequently placed on a drip due to persistently elevated heart rates. At some point over the course of the night, she chemically converted back to normal sinus rhythm. Due to hemodynamic instability, the patient had to be placed on vasopressor support. The patient's family was updated. Shortly after my arrival this morning, the patient was again noted to become bradycardic and a pulse was subsequently lost. ACLS was again initiated due to PEA cardiac arrest. Epinephrine x1 was administered. Upon the first pulse check, the patient was noted to have achieved ROSC. Additional fluids were administered. The patient was also started on vasopressin, as her levophed requirement had increased steadily and she remained hemodynamically unstable. Emergent central venous access and arterial lines were established. The patient was placed on broad-spectrum antimicrobials, including vancomycin and meropenem. Labs were obtained and revealed evidence of multiorgan system dysfunction. Arterial blood gas was obtained and revealed a pH of 7.16 with a PCO2 of 52 and PO2 of 86. The patient eventually also had to be started on epinephrine infusion due to ongoing hemodynamic instability. Past Medical History Past Medical History (Chronic Problems): Chronic Problems Morbid obesity (Chronic) Tobacco use (Chronic) Allergies aspirin Allergy (Verified 06/15/18 20:31) Swelling erythromycin base [Erythromycin Base] Allergy (Verified 06/15/18 20:31) Anaphylaxis Penicillins Allergy (Verified 06/15/18 20:31) Anaphylaxis venom-honey bee [bee venom (honey bee)] Adverse Reaction (Verified 06/15/18 20:31) Other Home Medications: Ambulatory Orders Medication Instructions Recorded NK 06/15/18 Surgical History: - - Left ankle surgery, left arm carpal tunnel surgery, tonsillectomy. Psychiatric History: - - She denies any psychiatric history but following evaluation suspect she has underlying anxiety and depression, possibly other psychiatric illnesses. 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 Smoking Status: Current every day smoker - Patient notes that she is currently smoking 2-3 cigarettes/day. Tobacco Use: Cigarettes Alcohol: None Drugs: None - *Family History Maternal History Items: - - Patient denies any marked maternal or paternal family history including heart disease, diabetes or cancer. Paternal History Items: - - Patient denies any marked maternal or paternal family history including heart disease, diabetes or cancer. Review of Systems Unable to obtain accurate/complete ROS d/t: Due to current intubation and mechanical ventilation status. Patient Problems: Active and Suspected Problems Severe sepsis (Acute) Acute respiratory failure with hypoxia (Acute) Pneumonia (Acute) Atrial fibrillation with RVR (Acute) LYNNETTE (acute kidney injury) (Acute) Objective: The patient's most recent lab work, culture data and imaging studies have all been personally reviewed. - Physical Exam General: - - Currently intubated, sedated and mechanically ventilated. The patient does open eyes to verbal stimulation. HEENT: Atraumatic, PERRLA, Normocephalic Oral: - - Endotracheal and OG tubes currently in place. Neck: Supple, No Nodes, Trachea Midline, - - Right IJ central venous catheter in place. Lungs: No wheeze, Diminished, Rhonchi, Tachypneic Cardiovascular: Regular rate, Regular Rhythm, Normal S1, Normal S2, No murmurs Abdomen: Bowel Sounds Present, Soft, Non Tender, Obese Extremities: No clubbing, No cyanosis, Diminished Peripheral Pulses, Edema Skin: No breakdown Musculoskeletal: No Muscle Wasting Lymphatic: No Cervical, Supraclavicular, or Inguinal Adenopathy Neurological: - - No focal neurological deficits. Vital Signs Temp Pulse Resp BP Pulse Ox 38.4 C H 74 38 H 75/54 L 99 06/16/18 04:05 06/16/18 05:15 06/16/18 05:15 06/16/18 04:05 06/16/18 05:15 Oxygen Flow Rate (L/min) 12 Oxygen Delivery Method Mechanical Ventilator Weight: 235 lb 14.314 oz Body Mass Index (BMI) 40.4 Intake and Output for Last 24 Hours 06/14/18 06/15/18 06/16/18 23:59 23:59 23:59 Intake Total 1720.4 / 1720.4 Output Total 0 / 0 Balance 1720.4 / 1720.4 Laboratory Tests Past 24 Hrs 06/15/18 06/15/18 06/15/18 20:15 20:31 20:31 WBC 14.0 H RBC 5.72 H Hgb 16.8 H Hct 49.7 H MCV 86.9 MCH 29.4 MCHC 33.8 RDW 14.8 H RDW Differential 47.0 H Plt Count 190 MPV 12.0 Immature Gran % (Auto) 0.400 Neut % (Auto) 85.7 H Lymph % (Auto) 9.5 L [place] % (Auto) 4.1 Eos % (Auto) 0.0 Baso % (Auto) 0.3 Absolute Neuts (auto) 12.0 H Absolute Lymphs (auto) 1.34 Total Counted Not Reportable Platelet Estimate ADEQUATE Plt Morphology Comment LARGE RBC Morphology NORM C+C APTT 31.3 Specimen Type Sample Site pH Bicarbonate Actual POC Total CO2 Base Excess O2 Saturation O2 % ABG pCO2 ABG pO2 [place] Test O2 Delivery Device Blood Gas Notified Whom Blood Gas Notified Time Sodium 135 L Potassium 3.4 L Chloride 98 Carbon Dioxide 22.0 Anion Gap 15 BUN 57 H Creatinine 1.85 H Estim Creat Clear Calc 29.32 Est GFR (MDRD) Af Amer 36 L Est GFR (MDRD) Non-Af 30 L BUN/Creatinine Ratio 30.8 H Glucose 144 H Hemoglobin A1c Lactic Acid Calcium 8.8 Phosphorus Magnesium Total Bilirubin AST ALT Alkaline Phosphatase Troponin I < 0.015 B-Natriuretic Peptide Total Protein Albumin Globulin Albumin/Globulin Ratio [facility] 06/15/18 06/15/18 06/15/18 20:31 20:50 22:58 WBC RBC Hgb Hct MCV MCH MCHC RDW RDW Differential Plt Count MPV Immature Gran % (Auto) Neut % (Auto) Lymph % (Auto) [place] % (Auto) Eos % (Auto) Baso % (Auto) Absolute Neuts (auto) Absolute Lymphs (auto) Total Counted Platelet Estimate Plt Morphology Comment RBC Morphology APTT Specimen Type ART Sample Site L Radial pH 7.40 Bicarbonate Actual 22.3 POC Total CO2 23 Base Excess -3 L O2 Saturation 94 L O2 % 50 ABG pCO2 36.0 ABG pO2 69 L [place] Test POS O2 Delivery Device Vent Mask Blood Gas Notified Whom [facility] Blood Gas Notified Time 2250 Sodium Potassium Chloride Carbon Dioxide Anion Gap BUN Creatinine Estim Creat Clear Calc Est GFR (MDRD) Af Amer Est GFR (MDRD) Non-Af BUN/Creatinine Ratio Glucose Hemoglobin A1c Lactic Acid 3.8 H Calcium Phosphorus Magnesium Total Bilirubin AST ALT Alkaline Phosphatase Troponin I B-Natriuretic Peptide 159.1 H Total Protein Albumin Globulin Albumin/Globulin Ratio [facility] 06/15/18 06/15/18 06/15/18 23:16 23:16 23:16 WBC RBC Hgb Hct MCV MCH MCHC RDW RDW Differential Plt Count MPV Immature Gran % (Auto) Neut % (Auto) Lymph % (Auto) [place] % (Auto) Eos % (Auto) Baso % (Auto) Absolute Neuts (auto) Absolute Lymphs (auto) Total Counted Platelet Estimate Plt Morphology Comment RBC Morphology APTT Specimen Type Sample Site pH Bicarbonate Actual POC Total CO2 Base Excess O2 Saturation O2 % ABG pCO2 ABG pO2 [place] Test O2 Delivery Device Blood Gas Notified Whom Blood Gas Notified Time Sodium Potassium Chloride Carbon Dioxide Anion Gap BUN Creatinine Estim Creat Clear Calc Est GFR (MDRD) Af Amer Est GFR (MDRD) Non-Af BUN/Creatinine Ratio Glucose Hemoglobin A1c 5.7 Lactic Acid Calcium Phosphorus 2.8 Magnesium 2.0 Total Bilirubin AST ALT Alkaline Phosphatase Troponin I B-Natriuretic Peptide Total Protein Albumin Globulin Albumin/Globulin Ratio TSH 0.52 06/16/18 06/16/18 06/16/18 01:15 03:50 03:50 WBC 16.2 H RBC 5.04 Hgb 14.8 Hct 45.7 MCV 90.7 MCH 29.4 MCHC 32.4 RDW 15.1 H RDW Differential 50.3 H Plt Count 164 MPV 12.1 H Immature Gran % (Auto) Neut % (Auto) Not Reportable Lymph % (Auto) [place] % (Auto) Eos % (Auto) Baso % (Auto) Absolute Neuts (auto) Not Reportable Absolute Lymphs (auto) Total Counted Pending Platelet Estimate Plt Morphology Comment RBC Morphology APTT Specimen Type Sample Site pH Bicarbonate Actual POC Total CO2 Base Excess O2 Saturation O2 % ABG pCO2 ABG pO2 [place] Test O2 Delivery Device Blood Gas Notified Whom Blood Gas Notified Time Sodium 138 Potassium 4.4 Chloride 102 Carbon Dioxide 20.0 L Anion Gap 16 H BUN 53 H Creatinine 1.77 H Estim Creat Clear Calc 30.65 Est GFR (MDRD) Af Amer 38 L Est GFR (MDRD) Non-Af 32 L BUN/Creatinine Ratio 29.9 H Glucose 195 H Hemoglobin A1c Lactic Acid 1.7 Calcium 7.9 L Phosphorus Magnesium Total Bilirubin 1.10 H AST 546 H ALT 203 H Alkaline Phosphatase 69 Troponin I B-Natriuretic Peptide Total Protein 6.5 Albumin 2.1 L Globulin 4.4 H Albumin/Globulin Ratio 0.5 L TSH 06/16/18 06/16/18 03:50 03:50 WBC RBC Hgb Hct MCV MCH MCHC RDW RDW Differential Plt Count MPV Immature Gran % (Auto) Neut % (Auto) Lymph % (Auto) [place] % (Auto) Eos % (Auto) Baso % (Auto) Absolute Neuts (auto) Absolute Lymphs (auto) Total Counted Platelet Estimate Plt Morphology Comment RBC Morphology APTT 67.6 H Specimen Type Sample Site pH Bicarbonate Actual POC Total CO2 Base Excess O2 Saturation O2 % ABG pCO2 ABG pO2 [place] Test O2 Delivery Device Blood Gas Notified Whom Blood Gas Notified Time Sodium Potassium Chloride Carbon Dioxide Anion Gap BUN Creatinine Estim Creat Clear Calc Est GFR (MDRD) Af Amer Est GFR (MDRD) Non-Af BUN/Creatinine Ratio Glucose Hemoglobin A1c Lactic Acid Calcium Phosphorus 8.5 H Magnesium 2.6 Total Bilirubin AST ALT Alkaline Phosphatase Troponin I 0.037 B-Natriuretic Peptide Total Protein Albumin Globulin Albumin/Globulin Ratio TSH Clinical Impression(s) from Imaging Studies Chest X-Ray 06/15/18 20:40 IMPRESSION: 1. Right lower lobe airspace disease. Given distinct margin along the superior border, an air-fluid level cannot be excluded. Chest CT may be warranted. 2. Mild infiltrate in the left lung base could also represent pneumonia. Electronically Signed: Alejandro Arizmendi MD at 21:01 EST , Service support , Chest X-Ray 06/16/18 03:40 IMPRESSION: NG tube and ET tube in place with the ET tube 5.3 cm above the isai. Improving consolidations in both lower nodes Electronically Signed: Kwesi Whalen MD at 4:59 EST Tel , Service support , KUB X-Ray 06/16/18 03:40 Assessment/Plan Active and Suspected Problems Severe sepsis (Acute) Acute respiratory failure with hypoxia (Acute) Pneumonia (Acute) Atrial fibrillation with RVR (Acute) LYNNETTE (acute kidney injury) (Acute) RECOMMENDATIONS: 1. Continue vasopressor support in an attempt to maintain a mean arterial pressure at or above 65 mmHg. 2. Plan to discuss CODE STATUS with family. 3. Obtain blood, urine and sputum cultures. Check respiratory viral panel. Check strep and urine Legionella antigens. 4. Obtain troponin and BNP. 5. Recheck lactate level as well. 6. Placed amiodarone on hold for now. 7. Obtain echocardiogram 8. Given clinical instability, will cancel CT chest and place order for lower extremity Doppler studies. 9. Continue heparin drip, given renal insufficiency. 10. Obtain nephrology consultation. 11. Administer additional lactated Ringer's boluses. 12. Broaden antibiotics. If flu positive, will start Tamiflu 13. Continue bronchodilators IMPRESSIONS: 1. Septic shock with multiorgan system dysfunction secondary to severe community-acquired pneumonia On admission to the hospital, the patient did have radiographic evidence of a dense consolidation in the right lung. She was also noted to have new onset atrial fibrillation with a rapid ventricular rate. The patient's atrial fibrillation was initially treated with Cardizem, beta blockade and eventually amiodarone. The patient went on to develop hypotension, for which she received IV fluids. Although she initially received a dose of Levaquin in the emergency department, her antibiotics were broadened upon arrival to the intensive care unit. At this time, the patient is being volume resuscitated per sepsis protocol. She has required an escalation in her vasopressor support to include levophed, vasopressin and epinephrine. We will plan to wean the aforementioned vasopressors as tolerated to maintain a mean arterial pressure at or above 65 mmHg. Infectious workup is currently underway. 2. Acute hypoxemic and hypercarbic respiratory failure As noted above, clinical concern for severe community-acquired pneumonia. In addition, the patient's brother does have a history of unprovoked venous thromboembolic disease, raising the suspicion for PE as a potential contribution to the patient's decompensation. However, the patient is too unstable clinically to be taken for CTA chest. She has already been placed on a heparin drip, which will be continued. I will instead plan to proceed with obtaining lower extremity Dopplers. The patient's FiO2 will be weaned as tolerated. Cultures have artery been collected. Scheduled bronchodilators will be continued. 3. New onset atrial fibrillation with rapid ventricular response/troponin elevation/cardiopulmonary arrest Although the patient presented to the hospital with new onset atrial fibrillation, her cardiac arrest was most likely precipitated by hypoxemia. She has been stabilized at this point. The patient converted to normal sinus rhythm overnight following administration of amiodarone, which has been discontinued at this time. We will continue current supportive measures as noted above. Echocardiogram is currently pending. Troponins are being cycled. Cardiology is following. 4. Acute kidney injury/shock liver Secondary to hemodynamic instability in the setting of #1. My suspicion is that the patient's renal function will continue to worsen over the next 24 hours. Therefore, a consultation has been placed to nephrology to assist with management. 5. Metabolic encephalopathy Likely secondary to increased metabolic demands in the setting of #1 coupled with hypercarbia. Despite having gone into cardiac arrest on 2 separate occasions during this hospitalization, the patient's mentation appears to be intact. Continue current supportive measures as noted above. 6. Unknown medical history/morbid obesity/tobacco dependency Complicates care, management, recovery and prognosis. Nicotine replacement therapy can be considered once the patient is deemed to be stabilized clinically. I have recommended holding off on initiating tube feeds until tomorrow. TIME: 120 minutes of critical care time, inclusive of procedures, was spent addressing the patient's septic shock, multiorgan system dysfunction, severe community-acquired pneumonia, acute respiratory failure, new onset atrial fibrillation, troponin elevation, cardiac arrest, acute kidney injury, shock liver, metabolic encephalopathy, review of all data and collaboration with the care team. ([id number]) Code Visit Procedures: 13270 Critial Care Addl 30 Min [id number]: [id number] Critical care first hour
[2018-06-16 07:06] LABS: Lymphocyte 15 % (19-41); Monocyte 4 % (0-10); Neutrophil-Band 1 % (0-5); Neutrophil-Segmented 78 % (47-70); Plasma Cell 2 %; Total Cells Counted 100 (MANUAL DIFF)
[2018-06-16 07:07] LABS: Platelet Estimate ADEQUATE (ADEQ)
[2018-06-16 07:08] LABS: Reactive Lymphocyte 1+
[2018-06-16 07:09] LABS: Absolute Lymphocyte Count 2.43 X10^3/ul (0.83-4.51); Absolute Neutrophil Count 12.8 X10^3/uL (2.0-7.7)
[2018-06-16 07:11] LABS: Base Excess -10 mmol/L (-2 to +2); Bicarbonate 18.5 mmol/L (22-26); Blood Gas Specimen Type ALINE; FI02 80; Mode A-C; O2 Delivery Device Vent; PEEP 5; PO2 86 mmHG (75-100); RR 12; SITE OTHER; SO2 93 % (95-99); Time Given 703; Total Carbon Dioxide 20 mmol/L; Vt 450; pCO2 52.4 mmHg (35-45); pH 7.16 (7.35-7.45)
[2018-06-16 07:13] LABS: Partial Thromboplast Time 61.5 Seconds (24.1-36.2)
[2018-06-16 07:21] LABS: Hemoglobin 14.6 g/dl (12.0-15.0); Mean Corp Hgb Conc 31.7 g/gl (32-36); Mean Corpuscular Volume 91.5 fL (81-99); Mean Platelet Vol. 11.8 fl (6.2-12.0); Platelet Count 151 K/mm3 (150-450); RBC Distribution Width CV 15.3 % (11.6-14.6); RBC Distribution Width SD 51.3 fl (35.1-43.9); Red Blood Count 5.03 M/mm3 (4.2-5.4); White Blood Count 21.3 K/mm3 (4.4-11.0)
[2018-06-16 07:23] LABS: International Normalized Ratio 1.5; Prothrombin Time (Protime)PT. 17.7 SECONDS (11.7-14.9)
--- NOTE | 2018-06-16 07:23 | RAD_ITS ---
STUDY: X-RAY CHEST REASON FOR EXAM: Female, 58 years old. Line placement TECHNIQUE: Single AP portable view of the chest. COMPARISON: June 16, 2018 FINDINGS: There is a right-sided central line and the tip is in superior vena cava. There is an endotracheal tube present 2.6 cm above the isai. An NG tube is present slightly high and could be advanced 5 cm. There is a dense opacity of the right midlung zone and the left lower lobe. There is moderate cardiac enlargement. Normal mediastinum and mary. Normal visualized pulmonary arteries. Normal visualized aortic arch and descending thoracic aorta. Normal visualized thoracic spine. Normal visualized ribs, clavicles, and shoulders. There is no demonstrated abnormality of the visualized soft tissue structures of the upper abdomen. RAD/CXR for Line Placement IMPRESSION: There is consolidation right midlung zone left lower lobe suspicious for pneumonia. Lines as detailed above. The NG tube could be advanced 5 cm. Electronically Signed: Carline Nieto MD at 10:02 EST Tel , Service support ,
--- NOTE | 2018-06-16 07:23 | NURSING ---
Bradycardia in 30's without a pulse.Code blue called at 0635. see code sheet. Dr. Chavez and Dr. Bolton present in room. Dr. Chavez placed right wrist arterial line at 0650. Levophed titrated up and vasopressin started via peripheral line per Dr. chavez. Right IJ TLC placed per Dr. Chavez at 0720 for pressors. levophed at max rate and vasopressin infusing with MAP in 50's at this time. Dr. Chavez remains present in the room.
[2018-06-16 07:25] LABS: ALB/GLOB Ratio 0.5 RATIO (0.9-2.4); AST(SGOT) 1922 U/L (15-37); Alanine Aminotransfer ALT/SGPT 700 U/L (13-56); Albumin, Serum 2.1 g/dL (3.2-5.0); Alkaline Phosphatase 82 U/L (45-117); Anion Gap 15 (5-15); BUN 53 mg/dL (7-18); BUN/Creat Ratio 25.2 RATIO (10-20); Chloride 103 mmol/L (98-107); EST Glomerular Filtration Rate 26 mL/min (>60); Est Glom Filt Rate - Afr Amer 31 mL/min (>60); Estimated Creatinine Clearance 25.83 ml/min; Globulin 4.5 g/dL (2.2-4.2); Glucose 123 mg/dL (74-106); Magnesium 3.1 mg/dL (1.6-2.6); Phosphorus 6.8 mg/dL (2.5-4.9); Potassium 5.8 mmol/L (3.5-5.1); Protein, Total 6.6 g/dL (6.4-8.2); Sodium Level 139 mmol/L (136-145)
[2018-06-16 07:26] LABS: Differential Indicated MANUAL DIFF; POSITIVE COUNT NO; POSITIVE DIFFERENTIAL NO; POSITIVE MORPHOLOGY YES
[2018-06-16 07:42] LABS: Lymphocyte 13 % (19-41); Metamyelocyte 1 % (0-1); Monocyte 11 % (0-10); Neutrophil-Band 4 % (0-5); Neutrophil-Segmented 71 % (47-70); Nucleated Red Bld Cells,Manual 1 % (0-5); Reactive Lymphocyte RARE; Total Cells Counted 100 (MANUAL DIFF)
[2018-06-16 07:43] LABS: Platelet Estimate ADEQUATE (ADEQ); Red Cell Morphology NORM C+C NORMAL (NORM C&C)
--- NOTE | 2018-06-16 07:55 | PN_ITS ---
Patient Problems: Active and Suspected Problems Severe sepsis (Acute) Acute respiratory failure with hypoxia (Acute) Pneumonia (Acute) Atrial fibrillation with RVR (Acute) LYNNETTE (acute kidney injury) (Acute) Subjective: Day #2 antibiotics Day #1 vancomycin and Merrem Ventilator day #1 The patient is a 58-year-old female with a past medical history of tobacco dependence and morbid obesity who presented to the emergency department at [facility] on 06/15/2018 complaining of cough, shortness of breath, fever/chills. Vital signs in the emergency department were temperature 98.1, heart rate 165-180, blood pressure 174/100 and pulse ox 87% on a 5 L nasal cannula. CBC showed an elevated white blood cell count at 14 with 86% neutrophils. Hemoglobin was 16.8 and platelets were 190,000. ABG done on a Ventimask with a 50% FiO2 showed a pH of 7.4, PCO2 of 36 and a PO2 of 69. Sodium was low at 135 and the potassium was 3.4. BUN was 57 with a creatinine of 1.85 (creatinine in 2015 was 1.0). Random blood sugar was 144 but the hemoglobin A1c was 5.7. Phosphorus and magnesium were within normal limits and the troponin was less than 0.015. LFTs showed an elevated bilirubin at 1.1, AST of 546 and an ALT of 203. TSH was normal at 0.52 and the BNP was 159.1. No urine was obtained. EKG showed atrial fibrillation with rapid ventricular response. Chest x-ray showed opacification of the right lower lobe with a sharp line of demarcation in the mid lung. There was infiltrate in the left base. Post intubation film showed dense consolidation in the right mid lung with infiltrates in the right upper lobe and right lower lobe as well. There is also infiltrate in the left base. Sputum was obtained in the Gram stain and culture are in progress. Blood cultures and a respiratory panel are pending. Admitted to the intensive care unit and subsequently intubated for acute respiratory failure. Amiodarone was started for atrial fibrillation with rapid ventricular response. She was started on a heparin infusion for atrial fibrillation. Antibiotics are meropenem and vancomycin. All events of the past 24 hours of been reviewed. T-max is 102 and that is the current temperature. Currently on vasopressin, EPI and Levophed for hypotension......surprisingly the HR is in the 70's.....may be due to the Labetalol hanging around All lab was personally reviewed. Blood cell count today is 21.3. Hemoglobin is 14.6 and platelets are 151,000. ABG this a.m. showed pH of 7.16, PCO2 of 52 and a PO2 of 86 on an 80% FiO2 5 of PEEP. Sodium is 139 and the potassium is 5.8 this morning. BUN is 53 and the creatinine is 2.10. Serum bicarb is 21. Bilirubin is 2 and the AST is up to 1922 with an ALT of 700 and an alk phos of 82. The second troponin increased to 0.037. She is alert and able to follow commands and nod appropriately Has been sick for a few days only and is usually healthy Has has myalgias and arthralgias, cough, SOB, fevers and rigors. No N/V/D Has not had a flu shot this year and has never had pneumovac Denies pain at the present time and does not feel air hunger - Physical Exam Vital Signs Temp Pulse Resp BP Pulse Ox 101.1 F H 74 29 H 75/54 L 91 06/16/18 04:05 06/16/18 05:15 06/16/18 06:00 06/16/18 04:05 06/16/18 06:00 Oxygen Flow Rate (L/min) 12 Oxygen Delivery Method Mechanical Ventilator Weight: 235 lb 14.314 oz Body Mass Index (BMI) 40.4 Intake and Output for Last 24 Hours 06/14/18 06/15/18 06/16/18 23:59 23:59 23:59 Intake Total 1720.4 / 1720.4 Output Total 0 / 0 Balance 1720.4 / 1720.4 Laboratory Tests Past 24 Hrs 06/15/18 06/15/18 06/15/18 20:15 20:31 20:31 WBC 14.0 H RBC 5.72 H Hgb 16.8 H Hct 49.7 H MCV 86.9 MCH 29.4 MCHC 33.8 RDW 14.8 H RDW Differential 47.0 H Plt Count 190 MPV 12.0 Immature Gran % (Auto) 0.400 Neut % (Auto) 85.7 H Lymph % (Auto) 9.5 L [place] % (Auto) 4.1 Eos % (Auto) 0.0 Baso % (Auto) 0.3 Absolute Neuts (auto) 12.0 H Absolute Lymphs (auto) 1.34 Total Counted Not Reportable Neutrophils % (Manual) Band Neutrophils % Lymphocytes % (Manual) Monocytes % (Manual) Metamyelocytes % Plasma Cell % (Manual) Nucleated RBCs/100 WBC Diff Path Review Reactive Lymphocytes Platelet Estimate ADEQUATE Plt Morphology Comment LARGE RBC Morphology NORM C+C PT INR APTT 31.3 Specimen Type Sample Site pH Bicarbonate Actual POC Total CO2 Base Excess O2 Saturation O2 % ABG pCO2 ABG pO2 [place] Test Respiration Rate O2 Delivery Device Minute Volume Vent Mode Tidal Volume POC PEEP Blood Gas Notified Whom Blood Gas Notified Time Sodium 135 L Potassium 3.4 L Chloride 98 Carbon Dioxide 22.0 Anion Gap 15 BUN 57 H Creatinine 1.85 H Estim Creat Clear Calc 29.32 Est GFR (MDRD) Af Amer 36 L Est GFR (MDRD) Non-Af 30 L BUN/Creatinine Ratio 30.8 H Glucose 144 H Hemoglobin A1c Lactic Acid Calcium 8.8 Phosphorus Magnesium Total Bilirubin AST ALT Alkaline Phosphatase Troponin I < 0.015 B-Natriuretic Peptide Total Protein Albumin Globulin Albumin/Globulin Ratio TSH 06/15/18 06/15/18 06/15/18 20:31 20:50 22:58 WBC RBC Hgb Hct MCV MCH MCHC RDW RDW Differential Plt Count MPV Immature Gran % (Auto) Neut % (Auto) Lymph % (Auto) [place] % (Auto) Eos % (Auto) Baso % (Auto) Absolute Neuts (auto) Absolute Lymphs (auto) Total Counted Neutrophils % (Manual) Band Neutrophils % Lymphocytes % (Manual) Monocytes % (Manual) Metamyelocytes % Plasma Cell % (Manual) Nucleated RBCs/100 WBC Diff Path Review Reactive Lymphocytes Platelet Estimate Plt Morphology Comment RBC Morphology PT INR APTT Specimen Type ART Sample Site L Radial pH 7.40 Bicarbonate Actual 22.3 POC Total CO2 23 Base Excess -3 L O2 Saturation 94 L O2 % 50 ABG pCO2 36.0 ABG pO2 69 L [place] Test POS Respiration Rate O2 Delivery Device Vent Mask Minute Volume Vent Mode Tidal Volume POC PEEP Blood Gas Notified Whom [facility] MD Blood Gas Notified Time 2250 Sodium Potassium Chloride Carbon Dioxide Anion Gap BUN Creatinine Estim Creat Clear Calc Est GFR (MDRD) Af Amer Est GFR (MDRD) Non-Af BUN/Creatinine Ratio Glucose Hemoglobin A1c Lactic Acid 3.8 H Calcium Phosphorus Magnesium Total Bilirubin AST ALT Alkaline Phosphatase Troponin I B-Natriuretic Peptide 159.1 H Total Protein Albumin Globulin Albumin/Globulin Ratio TSH 06/15/18 06/15/18 06/15/18 23:16 23:16 23:16 WBC RBC Hgb Hct MCV MCH MCHC RDW RDW Differential Plt Count MPV Immature Gran % (Auto) Neut % (Auto) Lymph % (Auto) [place] % (Auto) Eos % (Auto) Baso % (Auto) Absolute Neuts (auto) Absolute Lymphs (auto) Total Counted Neutrophils % (Manual) Band Neutrophils % Lymphocytes % (Manual) Monocytes % (Manual) Metamyelocytes % Plasma Cell % (Manual) Nucleated RBCs/100 WBC Diff Path Review Reactive Lymphocytes Platelet Estimate Plt Morphology Comment RBC Morphology PT INR APTT Specimen Type Sample Site pH Bicarbonate Actual POC Total CO2 Base Excess O2 Saturation O2 % ABG pCO2 ABG pO2 [place] Test Respiration Rate O2 Delivery Device Minute Volume Vent Mode Tidal Volume POC PEEP Blood Gas Notified Whom Blood Gas Notified Time Sodium Potassium Chloride Carbon Dioxide Anion Gap BUN Creatinine Estim Creat Clear Calc Est GFR (MDRD) Af Amer Est GFR (MDRD) Non-Af BUN/Creatinine Ratio Glucose Hemoglobin A1c 5.7 Lactic Acid Calcium Phosphorus 2.8 Magnesium 2.0 Total Bilirubin AST ALT Alkaline Phosphatase Troponin I B-Natriuretic Peptide Total Protein Albumin Globulin Albumin/Globulin Ratio TSH 0.52 06/16/18 06/16/18 06/16/18 01:15 03:50 03:50 WBC 16.2 H RBC 5.04 Hgb 14.8 Hct 45.7 MCV 90.7 MCH 29.4 MCHC 32.4 RDW 15.1 H RDW Differential 50.3 H Plt Count 164 MPV 12.1 H Immature Gran % (Auto) Neut % (Auto) Not Reportable Lymph % (Auto) [place] % (Auto) Eos % (Auto) Baso % (Auto) Absolute Neuts (auto) 12.8 H Absolute Lymphs (auto) 2.43 Total Counted 100 Neutrophils % (Manual) 78 H Band Neutrophils % 1 Lymphocytes % (Manual) 15 L Monocytes % (Manual) 4 Metamyelocytes % Plasma Cell % (Manual) 2 Nucleated RBCs/100 WBC Diff Path Review May foll Reactive Lymphocytes 1+ Platelet Estimate ADEQUATE Plt Morphology Comment RBC Morphology PT INR APTT Specimen Type Sample Site pH Bicarbonate Actual POC Total CO2 Base Excess O2 Saturation O2 % ABG pCO2 ABG pO2 [place] Test Respiration Rate O2 Delivery Device Minute Volume Vent Mode Tidal Volume POC PEEP Blood Gas Notified Whom Blood Gas Notified Time Sodium 138 Potassium 4.4 Chloride 102 Carbon Dioxide 20.0 L Anion Gap 16 H BUN 53 H Creatinine 1.77 H Estim Creat Clear Calc 30.65 Est GFR (MDRD) Af Amer 38 L Est GFR (MDRD) Non-Af 32 L BUN/Creatinine Ratio 29.9 H Glucose 195 H Hemoglobin A1c Lactic Acid 1.7 Calcium 7.9 L Phosphorus Magnesium Total Bilirubin 1.10 H AST 546 H ALT 203 H Alkaline Phosphatase 69 Troponin I B-Natriuretic Peptide Total Protein 6.5 Albumin 2.1 L Globulin 4.4 H Albumin/Globulin Ratio 0.5 L [facility] 06/16/18 06/16/18 06/16/18 03:50 03:50 03:50 WBC RBC Hgb Hct MCV MCH MCHC RDW RDW Differential Plt Count MPV Immature Gran % (Auto) Neut % (Auto) Lymph % (Auto) [place] % (Auto) Eos % (Auto) Baso % (Auto) Absolute Neuts (auto) Absolute Lymphs (auto) Total Counted Neutrophils % (Manual) Band Neutrophils % Lymphocytes % (Manual) Monocytes % (Manual) Metamyelocytes % Plasma Cell % (Manual) Nucleated RBCs/100 WBC Diff Path Review Reactive Lymphocytes Platelet Estimate Plt Morphology Comment RBC Morphology PT 17.7 H INR 1.5 APTT 67.6 H Specimen Type Sample Site pH Bicarbonate Actual POC Total CO2 Base Excess O2 Saturation O2 % ABG pCO2 ABG pO2 [place] Test Respiration Rate O2 Delivery Device Minute Volume Vent Mode Tidal Volume POC PEEP Blood Gas Notified Whom Blood Gas Notified Time Sodium Potassium Chloride Carbon Dioxide Anion Gap BUN Creatinine Estim Creat Clear Calc Est GFR (MDRD) Af Amer Est GFR (MDRD) Non-Af BUN/Creatinine Ratio Glucose Hemoglobin A1c Lactic Acid Calcium Phosphorus 8.5 H Magnesium 2.6 Total Bilirubin AST ALT Alkaline Phosphatase Troponin I 0.037 B-Natriuretic Peptide Total Protein Albumin Globulin Albumin/Globulin Ratio [facility] 06/16/18 06/16/18 06/16/18 06:45 06:45 06:45 WBC 21.3 H RBC 5.03 Hgb 14.6 Hct 46.0 MCV 91.5 MCH 29.0 MCHC 31.7 L RDW 15.3 H RDW Differential 51.3 H Plt Count 151 MPV 11.8 Immature Gran % (Auto) Neut % (Auto) Not Reportable Lymph % (Auto) [place] % (Auto) Eos % (Auto) Baso % (Auto) Absolute Neuts (auto) 16.0 H Absolute Lymphs (auto) 2.80 Total Counted 100 Neutrophils % (Manual) 71 H Band Neutrophils % 4 Lymphocytes % (Manual) 13 L Monocytes % (Manual) 11 H Metamyelocytes % 1 Plasma Cell % (Manual) Nucleated RBCs/100 WBC 1 Diff Path Review May foll Reactive Lymphocytes RARE Platelet Estimate ADEQUATE Plt Morphology Comment RBC Morphology NORM C+C PT INR APTT 61.5 H Specimen Type Sample Site pH Bicarbonate Actual POC Total CO2 Base Excess O2 Saturation O2 % ABG pCO2 ABG pO2 [place] Test Respiration Rate O2 Delivery Device Minute Volume Vent Mode Tidal Volume POC PEEP Blood Gas Notified Whom Blood Gas Notified Time Sodium 139 Potassium 5.8 H Chloride 103 Carbon Dioxide 21.0 Anion Gap 15 BUN 53 H Creatinine 2.10 H Estim Creat Clear Calc 25.83 Est GFR (MDRD) Af Amer 31 L Est GFR (MDRD) Non-Af 26 L BUN/Creatinine Ratio 25.2 H Glucose 123 H Hemoglobin A1c Lactic Acid Calcium 8.0 L Phosphorus 6.8 H Magnesium 3.1 H Total Bilirubin 2.00 H AST 1922 H ALT 700 H Alkaline Phosphatase 82 Troponin I B-Natriuretic Peptide Total Protein 6.6 Albumin 2.1 L Globulin 4.5 H Albumin/Globulin Ratio 0.5 L TSH 06/16/18 07:04 WBC RBC Hgb Hct MCV MCH MCHC RDW RDW Differential Plt Count MPV Immature Gran % (Auto) Neut % (Auto) Lymph % (Auto) [place] % (Auto) Eos % (Auto) Baso % (Auto) Absolute Neuts (auto) Absolute Lymphs (auto) Total Counted Neutrophils % (Manual) Band Neutrophils % Lymphocytes % (Manual) Monocytes % (Manual) Metamyelocytes % Plasma Cell % (Manual) Nucleated RBCs/100 WBC Diff Path Review Reactive Lymphocytes Platelet Estimate Plt Morphology Comment RBC Morphology PT INR APTT Specimen Type ANN Sample Site OTHER pH 7.16 L* Bicarbonate Actual 18.5 L POC Total CO2 20 Base Excess -10 L O2 Saturation 93 L O2 % 80 ABG pCO2 52.4 H ABG pO2 86 [place] Test Respiration Rate 12 O2 Delivery Device Vent Minute Volume 15.00 Vent Mode A-C Tidal Volume 450 POC PEEP 5 Blood Gas Notified Whom ICU MD Blood Gas Notified Time 703 Sodium Potassium Chloride Carbon Dioxide Anion Gap BUN Creatinine Estim Creat Clear Calc Est GFR (MDRD) Af Amer Est GFR (MDRD) Non-Af BUN/Creatinine Ratio Glucose Hemoglobin A1c Lactic Acid Calcium Phosphorus Magnesium Total Bilirubin AST ALT Alkaline Phosphatase Troponin I B-Natriuretic Peptide Total Protein Albumin Globulin Albumin/Globulin Ratio TSH Medical Necessity - Tobacco Use Smoking Status: Current every day smoker - Patient notes that she is currently smoking 2-3 cigarettes/day. Tobacco Use: Cigarettes Assessment/Plan All Active Problems Severe sepsis (Acute) Acute respiratory failure with hypoxia (Acute) Pneumonia (Acute) Atrial fibrillation with RVR (Acute) LYNNETTE (acute kidney injury) (Acute) Impressions 1. septic shock due to CAP 2. acute combined respiratory failure 3. AF with RVR 4. ARF 5. shock liver 6. hyperkalemia - likely related to the acidosis with a PH of 7.16 7. Hyperphosphatemia secondary to acute renal failure 8. UGI bleed vs blood in the NG tube and the cannister due to trauma with NG insertion 9. Tobacco dependence 10. History of hypertension 11. Morbid obesity 12. Cardiac arrest due to PEA - resolved with EPI X 1 Continue pressors-maintain MAP of 65 or greater Fluid bolus 1 L now Continue the Merrem and Vanco CT scan of the chest when BP is stable BC's and sputum are pending urine for UA, urine culture, Legionella and Strep Consult nephrology for acute renal failure Recheck a BMP at noon Repeat lab in the a.m. Continue Protonix 40 mg IV every 12 hours Awaiting the results of the CXR from this AM Software Quality Manager consult for recommendations on the TF Continue the heparin drip - recheck a PT at noon D/W Dr. Chavez - 1 amp bicarb nmow to see if this will improve the effectiveness of the pressors ECHO Code Visit Inpatient E&M: 66788 Subs Hosp L3
[2018-06-16] MEDS: 0.9% Normal Saline 1,000 ML 999 ML IV (08:03)
[2018-06-16] MEDS: Sodium Bicarbonate 8.4% 50 ML Syringe 50 MEQ IV ×2 (08:16→08:18)
[2018-06-16 08:47] LABS: T4 Free Direct 1.56 ng/dL (0.76-1.46)
[2018-06-16] MEDS: 0.9% NaCl IVPB Med Flush (250 mL) 15 ML IV (08:53)
[2018-06-16] MEDS: Lactated Ringers 1,000 ML 999 ML IV ×2 (09:03→10:06)
[2018-06-16 09:29] LABS: Lactic Acid 4.9 mmol/L (0.4-2.0)
--- NOTE | 2018-06-16 09:41 | VDLE_ITS ---
Reason For Study: SOB RIGHT LEFT GSV is normal. GSV is normal. CFV is compressible, spontaneous, phasic, CFV is compressible, spontaneous, phasic, competent and demonstrates normal competent, and demonstrates normal augmentation. augmentation. FV is compressible, spontaneous, phasic, FV is compressible, spontaneous, phasic, competent and demonstrates normal competent and demonstrates normal augmentation. augmentation. POP V is compressible, spontaneous, phasic, POP V is compressible, spontaneous, phasic, competent and demonstrates normal competent and demonstrates normal augmentation. augmentation. T/P Trunk is compressible. T/P Trunk is compressible. PTV is compressible. PTV is compressible. RT PerV is compressible. LT PerV is compressible. Procedure Exam performed portable in ICU/CCU. A preliminary report was called and/or faxed to [facility]. Interpretation Summary No evidence for acute deep venous thrombosis bilateral lower extremities with patent and compressible bilateral great saphenous veins. Ordering Physician: Alex Chavez D.O. Referring Physician: Jose Kaplan Performed By: Zena Meade, TREY, RVT
--- NOTE | 2018-06-16 10:14 | PCM.CONS.C ---
Reason for Consult Date of Consultation: 06/16/18 Reason for Consultation: Evaluation of cardiac status History of Present Illness: The patient is a 58 year old F with a past medical history of tobacco use, Morbid Obesity who does not regularly seek medication evaluation who presents to the [facility] ED on 06/15/18 with history of ongoing, progressively worsening dyspnea, minimally productive cough with associated fevers and chills with poor oral intake x 4 days. In the ED upon evaluation she denies any recent palpitations or chest pain associated. The patient was evaluated in the emergency room and noted to have a significant consolidation of the right lower lobe. An EKG that was done also demonstrated atrial fibrillation with a rapid ventricular response rate of 226 bpm. The patient was administered intravenous Cardizem and Lopressor and subsequently intravenous labetalol. She was transferred to the intensive care unit. While in the intensive care unit she apparently took off her BiPAP mask and went into pulseless electrical activity requiring resuscitation. She also became hypotensive and this morning she is intubated and on pressor agents but has converted back to sinus rhythm. Past Medical History Allergies/Adverse Reactions: Allergies aspirin Allergy (Verified 06/15/18 20:31) Swelling erythromycin base [Erythromycin Base] Allergy (Verified 06/15/18 20:31) Anaphylaxis Penicillins Allergy (Verified 06/15/18 20:31) Anaphylaxis venom-honey bee [bee venom (honey bee)] Adverse Reaction (Verified 06/15/18 20:31) Other Home Medications: Ambulatory Orders Medication Instructions Recorded NK 06/15/18 Past Medical History (Chronic Problems): Chronic Problems Morbid obesity (Chronic) Tobacco use (Chronic) Surgical History: - - Left ankle surgery, left arm carpal tunnel surgery, tonsillectomy. Psychiatric History: - - She denies any psychiatric history but following evaluation suspect she has underlying anxiety and depression, possibly other psychiatric illnesses. 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 Paternal History Items: - - Patient denies any marked maternal or paternal family history including heart disease, diabetes or cancer. Lives: With Family - Patient notes that she currently lives with her daughter. Smoking Status: Current every day smoker - Patient notes that she is currently smoking 2-3 cigarettes/day. Tobacco Use: Cigarettes Alcohol: None Drugs: None Review of Systems - Review of Systems General: Denies: Fever, Night Sweats, Fatigue HEENT: Denies: Vision Change Cardiovascular: Reports: Shortness of Breath, Shortness of Breath at Rest, Shortness of Breath with Exertion. Denies: Chest Discomfort, Orthopnea, PND, Peripheral Edema, Palpitations, Lightheadedness, Dizziness, Near Syncope, Syncope Respiratory: Denies: Cough, Sputum Production, Hemoptysis Gastrointestinal: Denies: Hematemesis, Hematochezia, Melena Genitourinary: Denies: Dysuria, Hematuria Skin: Denies: Rash Subjectve: Obese lady intubated not cooperative Objective: Vital Signs Temp Pulse Resp BP Pulse Ox 101.1 F H 100 26 H 92/60 97 06/16/18 09:00 06/16/18 09:00 06/16/18 09:00 06/16/18 10:10 06/16/18 09:00 Oxygen Flow Rate (L/min) 12 Oxygen Delivery Method Mechanical Ventilator Weight: 235 lb 14.314 oz Body Mass Index (BMI) 40.4 Intake and Output for Last 24 Hours 06/14/18 06/15/18 06/16/18 23:59 23:59 23:59 Intake Total 1720.4 / 1720.4 Output Total 0 / 0 Balance 1720.4 / 1720.4 General: Awake, Alert, Oriented x 3 HEENT: PERRL, EOMI, Sclera Non Icteric Neck: Supple, Good ROM, No Lymph Node Enlargement Lungs: Clear to auscultation Cardiovascular: Regular Rhythm, Normal S1, Normal S2, No Murmurs, No Rubs, No Gallops Vascular: No Carotid Bruits, Normal Femoral Pulses, Normal Radial Pulses, Normal Dorsalis Pedal Pulse, Normal Posterior Tibial Pulses Abdomen: Bowel Sounds Present, Soft, Non Tender, No HSM, No Organomegaly Extremities: No Cyanosis, No Clubbing, No edema Lymphatic: No Lymph Node Enlargement Neurological: No Focal Motor or Sensory Deficit 06/15/18 20:15: APTT 31.3 06/15/18 20:31: WBC 14.0 H, RBC 5.72 H, Hgb 16.8 H, Hct 49.7 H, MCV 86.9, MCH 29.4, MCHC 33.8, RDW 14.8 H, RDW Differential 47.0 H, Plt Count 190, MPV 12.0, Immature Gran % (Auto) 0.400, Neut % (Auto) 85.7 H, Lymph % (Auto) 9.5 L, [place] % (Auto) 4.1, Eos % (Auto) 0.0, Baso % (Auto) 0.3, Absolute Neuts (auto) 12.0 H, Total Counted Not Reportable 06/15/18 20:31: Sodium 135 L, Potassium 3.4 L, Chloride 98, Carbon Dioxide 22.0, Anion Gap 15, BUN 57 H, Creatinine 1.85 H, Est GFR (MDRD) Af Amer 36 L, Est GFR (MDRD) Non-Af 30 L, BUN/Creatinine Ratio 30.8 H, Glucose 144 H, Calcium 8.8, Troponin I < 0.015 06/15/18 20:31: B-Natriuretic Peptide 159.1 H 06/15/18 20:50: Lactic Acid 3.8 H 06/15/18 22:58: pH 7.40, Bicarbonate Actual 22.3, POC Total CO2 23, Base Excess -3 L, O2 Saturation 94 L, ABG pCO2 36.0, ABG pO2 69 L, [place] Test POS 06/15/18 23:16: Hemoglobin A1c 5.7 06/15/18 23:16: Magnesium 2.0 06/15/18 23:16: Phosphorus 2.8 06/16/18 01:15: Lactic Acid 1.7 06/16/18 03:50: WBC 16.2 H, RBC 5.04, Hgb 14.8, Hct 45.7, MCV 90.7, MCH 29.4, MCHC 32.4, RDW 15.1 H, RDW Differential 50.3 H, Plt Count 164, MPV 12.1 H, Neut % (Auto) Not Reportable, Absolute Neuts (auto) 12.8 H, Total Counted 100, Neutrophils % (Manual) 78 H, Band Neutrophils % 1, Lymphocytes % (Manual) 15 L, Monocytes % (Manual) 4, Plasma Cell % (Manual) 2 06/16/18 03:50: Sodium 138, Potassium 4.4, Chloride 102, Carbon Dioxide 20.0 L, Anion Gap 16 H, BUN 53 H, Creatinine 1.77 H, Est GFR (MDRD) Af Amer 38 L, Est GFR (MDRD) Non-Af 32 L, BUN/Creatinine Ratio 29.9 H, Glucose 195 H, Calcium 7.9 L, Total Bilirubin 1.10 H 06/16/18 03:50: APTT 67.6 H 06/16/18 03:50: Phosphorus 8.5 H, Magnesium 2.6, Troponin I 0.037 06/16/18 03:50: PT 17.7 H, INR 1.5 06/16/18 06:45: WBC 21.3 H, RBC 5.03, Hgb 14.6, Hct 46.0, MCV 91.5, MCH 29.0, MCHC 31.7 L, RDW 15.3 H, RDW Differential 51.3 H, Plt Count 151, MPV 11.8, Neut % (Auto) Not Reportable, Absolute Neuts (auto) 16.0 H, Total Counted 100, Neutrophils % (Manual) 71 H, Band Neutrophils % 4, Lymphocytes % (Manual) 13 L, Monocytes % (Manual) 11 H, Metamyelocytes % 1 06/16/18 06:45: APTT 61.5 H 06/16/18 06:45: Sodium 139, Potassium 5.8 H, Chloride 103, Carbon Dioxide 21.0, Anion Gap 15, BUN 53 H, Creatinine 2.10 H, Est GFR (MDRD) Af Amer 31 L, Est GFR (MDRD) Non-Af 26 L, BUN/Creatinine Ratio 25.2 H, Glucose 123 H, Calcium 8.0 L, Phosphorus 6.8 H, Magnesium 3.1 H, Total Bilirubin 2.00 H 06/16/18 07:04: pH 7.16 L*, Bicarbonate Actual 18.5 L, POC Total CO2 20, Base Excess -10 L, O2 Saturation 93 L, ABG pCO2 52.4 H, ABG pO2 86 06/16/18 08:15: Lactic Acid 4.9 H* 06/16/18 08:25: Troponin I 0.101 H Rhythm: EKG: Initial electrocardiogram demonstrated atrial fibrillation with a rate of 226 bpm, follow-up EKG demonstrates normal sinus rhythm with a rate of 79 bpm ECHO: Stress Test: Cardiac Cath: PCI: CT Surgery: Holter monitor: EPS: PPM: CXR: Chest CT Scan: Assessment/Plan 1. Atrial fibrillation Patient presented with atrial fibrillation likely secondary to her lung condition. With her pneumonia. The above appears to have been transient and currently patient is maintaining sinus rhythm. Will obtain an echocardiogram in a.m. to assess left ventricular function. I do not think that long-term anticoagulation is warranted at this time. 2. Cardiopulmonary arrest I suspect the above is on the basis of severe hypoxia as well as the bradycardia arrhythmia secondary to the beta-moris that the patient was receiving. That appears to have resolved and currently patient is on supportive management with three-vasoactive agents. We will try and titrate to maintain a mean arterial pressure of 65 mmHg. 3. Lung consolidation I suspect the above is on the basis of an infection and not a pulmonary embolism with pulmonary infarction. 4. Abnormal cardiac enzymes Above is likely secondary to demand ischemia. 5. Acute renal insufficiency The above is likely secondary to her septic state, hypotension and poor perfusion likely on an underlying baseline renal dysfunction. Above discussed with hospitalist and wharf helper. We will continue to follow with you. Total critical care time spent 45 minutes. 9 AM to 9:45 AM
--- NOTE | 2018-06-16 10:18 | CON.PCM_ITS ---
Reason for Consult Date of Consultation: 06/16/18 Reason for Consultation: Evaluation of cardiac status History of Present Illness: The patient is a 58 year old F with a past medical history of tobacco use, Morbid Obesity who does not regularly seek medication evaluation who presents to the [facility] ED on 06/15/18 with history of ongoing, progressively worsening dyspnea, minimally productive cough with associated fevers and chills with poor oral intake x 4 days. In the ED upon evaluation she denies any recent palpitations or chest pain associated. The patient was evaluated in the emergency room and noted to have a significant consolidation of the right lower lobe. An EKG that was done also demonstrated atrial fibrillation with a rapid ventricular response rate of 226 bpm. The patient was administered intravenous Cardizem and Lopressor and subsequently intravenous labetalol. She was transferred to the intensive care unit. While in the intensive care unit she apparently took off her BiPAP mask and went into pulseless electrical activity requiring resuscitation. She also became hypotensive and this morning she is intubated and on pressor agents but has converted back to sinus rhythm. Past Medical History Allergies/Adverse Reactions: Allergies aspirin Allergy (Verified 06/15/18 20:31) Swelling erythromycin base [Erythromycin Base] Allergy (Verified 06/15/18 20:31) Anaphylaxis Penicillins Allergy (Verified 06/15/18 20:31) Anaphylaxis venom-honey bee [bee venom (honey bee)] Adverse Reaction (Verified 06/15/18 20:31) Other Home Medications: Ambulatory Orders Medication Instructions Recorded NK 06/15/18 Past Medical History (Chronic Problems): Chronic Problems Morbid obesity (Chronic) Tobacco use (Chronic) Surgical History: - - Left ankle surgery, left arm carpal tunnel surgery, tonsillectomy. Psychiatric History: - - She denies any psychiatric history but following evaluation suspect she has underlying anxiety and depression, possibly other psychiatric illnesses. 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 Paternal History Items: - - Patient denies any marked maternal or paternal family history including heart disease, diabetes or cancer. Lives: With Family - Patient notes that she currently lives with her daughter. Smoking Status: Current every day smoker - Patient notes that she is currently smoking 2-3 cigarettes/day. Tobacco Use: Cigarettes Alcohol: None Drugs: None Review of Systems - Review of Systems General: Denies: Fever, Night Sweats, Fatigue HEENT: Denies: Vision Change Cardiovascular: Reports: Shortness of Breath, Shortness of Breath at Rest, Shortness of Breath with Exertion. Denies: Chest Discomfort, Orthopnea, PND, Peripheral Edema, Palpitations, Lightheadedness, Dizziness, Near Syncope, Syncope Respiratory: Denies: Cough, Sputum Production, Hemoptysis Gastrointestinal: Denies: Hematemesis, Hematochezia, Melena Genitourinary: Denies: Dysuria, Hematuria Skin: Denies: Rash Subjectve: Obese lady intubated not cooperative Objective: Vital Signs Temp Pulse Resp BP Pulse Ox 101.1 F H 100 26 H 92/60 97 06/16/18 09:00 06/16/18 09:00 06/16/18 09:00 06/16/18 10:10 06/16/18 09:00 Oxygen Flow Rate (L/min) 12 Oxygen Delivery Method Mechanical Ventilator Weight: 235 lb 14.314 oz Body Mass Index (BMI) 40.4 Intake and Output for Last 24 Hours 06/14/18 06/15/18 06/16/18 23:59 23:59 23:59 Intake Total 1720.4 / 1720.4 Output Total 0 / 0 Balance 1720.4 / 1720.4 General: Awake, Alert, Oriented x 3 HEENT: PERRL, EOMI, Sclera Non Icteric Neck: Supple, Good ROM, No Lymph Node Enlargement Lungs: Clear to auscultation Cardiovascular: Regular Rhythm, Normal S1, Normal S2, No Murmurs, No Rubs, No Gallops Vascular: No Carotid Bruits, Normal Femoral Pulses, Normal Radial Pulses, Normal Dorsalis Pedal Pulse, Normal Posterior Tibial Pulses Abdomen: Bowel Sounds Present, Soft, Non Tender, No HSM, No Organomegaly Extremities: No Cyanosis, No Clubbing, No edema Lymphatic: No Lymph Node Enlargement Neurological: No Focal Motor or Sensory Deficit 06/15/18 20:15: APTT 31.3 06/15/18 20:31: WBC 14.0 H, RBC 5.72 H, Hgb 16.8 H, Hct 49.7 H, MCV 86.9, MCH 29.4, MCHC 33.8, RDW 14.8 H, RDW Differential 47.0 H, Plt Count 190, MPV 12.0, Immature Gran % (Auto) 0.400, Neut % (Auto) 85.7 H, Lymph % (Auto) 9.5 L, [place] % (Auto) 4.1, Eos % (Auto) 0.0, Baso % (Auto) 0.3, Absolute Neuts (auto) 12.0 H, Total Counted Not Reportable 06/15/18 20:31: Sodium 135 L, Potassium 3.4 L, Chloride 98, Carbon Dioxide 22.0, Anion Gap 15, BUN 57 H, Creatinine 1.85 H, Est GFR (MDRD) Af Amer 36 L, Est GFR (MDRD) Non-Af 30 L, BUN/Creatinine Ratio 30.8 H, Glucose 144 H, Calcium 8.8, Troponin I < 0.015 06/15/18 20:31: B-Natriuretic Peptide 159.1 H 06/15/18 20:50: Lactic Acid 3.8 H 06/15/18 22:58: pH 7.40, Bicarbonate Actual 22.3, POC Total CO2 23, Base Excess -3 L, O2 Saturation 94 L, ABG pCO2 36.0, ABG pO2 69 L, [place] Test POS 06/15/18 23:16: Hemoglobin A1c 5.7 06/15/18 23:16: Magnesium 2.0 06/15/18 23:16: Phosphorus 2.8 06/16/18 01:15: Lactic Acid 1.7 06/16/18 03:50: WBC 16.2 H, RBC 5.04, Hgb 14.8, Hct 45.7, MCV 90.7, MCH 29.4, MCHC 32.4, RDW 15.1 H, RDW Differential 50.3 H, Plt Count 164, MPV 12.1 H, Neut % (Auto) Not Reportable, Absolute Neuts (auto) 12.8 H, Total Counted 100, Neutrophils % (Manual) 78 H, Band Neutrophils % 1, Lymphocytes % (Manual) 15 L, Monocytes % (Manual) 4, Plasma Cell % (Manual) 2 06/16/18 03:50: Sodium 138, Potassium 4.4, Chloride 102, Carbon Dioxide 20.0 L, Anion Gap 16 H, BUN 53 H, Creatinine 1.77 H, Est GFR (MDRD) Af Amer 38 L, Est GFR (MDRD) Non-Af 32 L, BUN/Creatinine Ratio 29.9 H, Glucose 195 H, Calcium 7.9 L, Total Bilirubin 1.10 H 06/16/18 03:50: APTT 67.6 H 06/16/18 03:50: Phosphorus 8.5 H, Magnesium 2.6, Troponin I 0.037 06/16/18 03:50: PT 17.7 H, INR 1.5 06/16/18 06:45: WBC 21.3 H, RBC 5.03, Hgb 14.6, Hct 46.0, MCV 91.5, MCH 29.0, MCHC 31.7 L, RDW 15.3 H, RDW Differential 51.3 H, Plt Count 151, MPV 11.8, Neut % (Auto) Not Reportable, Absolute Neuts (auto) 16.0 H, Total Counted 100, Neutrophils % (Manual) 71 H, Band Neutrophils % 4, Lymphocytes % (Manual) 13 L, Monocytes % (Manual) 11 H, Metamyelocytes % 1 06/16/18 06:45: APTT 61.5 H 06/16/18 06:45: Sodium 139, Potassium 5.8 H, Chloride 103, Carbon Dioxide 21.0, Anion Gap 15, BUN 53 H, Creatinine 2.10 H, Est GFR (MDRD) Af Amer 31 L, Est GFR (MDRD) Non-Af 26 L, BUN/Creatinine Ratio 25.2 H, Glucose 123 H, Calcium 8.0 L, Phosphorus 6.8 H, Magnesium 3.1 H, Total Bilirubin 2.00 H 06/16/18 07:04: pH 7.16 L*, Bicarbonate Actual 18.5 L, POC Total CO2 20, Base Excess -10 L, O2 Saturation 93 L, ABG pCO2 52.4 H, ABG pO2 86 06/16/18 08:15: Lactic Acid 4.9 H* 06/16/18 08:25: Troponin I 0.101 H Rhythm: EKG: Initial electrocardiogram demonstrated atrial fibrillation with a rate of 226 bpm, follow-up EKG demonstrates normal sinus rhythm with a rate of 79 bpm ECHO: Stress Test: Cardiac Cath: PCI: CT Surgery: Holter monitor: EPS: PPM: CXR: Chest CT Scan: Assessment/Plan 1. Atrial fibrillation * Patient presented with atrial fibrillation likely secondary to her lung condition. With her pneumonia. The above appears to have been transient and currently patient is maintaining sinus rhythm. * Will obtain an echocardiogram in a.m. to assess left ventricular function. * I do not think that long-term anticoagulation is warranted at this time. * 2. Cardiopulmonary arrest * I suspect the above is on the basis of severe hypoxia as well as the bradycardia arrhythmia secondary to the beta-moris that the patient was receiving. * That appears to have resolved and currently patient is on supportive management with three-vasoactive agents. We will try and titrate to maintain a mean arterial pressure of 65 mmHg. 3. Lung consolidation * I suspect the above is on the basis of an infection and not a pulmonary embolism with pulmonary infarction. * * 4. Abnormal cardiac enzymes * Above is likely secondary to demand ischemia. * 5. Acute renal insufficiency * The above is likely secondary to her septic state, hypotension and poor perfusion likely on an underlying baseline renal dysfunction. * Above discussed with hospitalist and converter skimmer. * We will continue to follow with you. * * Total critical care time spent 45 minutes. 9 AM to 9:45 AM
--- NOTE | 2018-06-16 10:21 | PCM.RX.CS ---
Consult Pharmacy has been consulted to manage selected antiobiotic: Vancomycin Type of Consult: New start Suspected Infection: Other Labs: Sodium 139 mmol/L (136-145) 06/16/18 06:45 Potassium 5.8 mmol/L (3.5-5.1) H 06/16/18 06:45 Chloride 103 mmol/L (98-107) 06/16/18 06:45 Carbon Dioxide 21.0 mmol/L (21.0-32.0) 06/16/18 06:45 Anion Gap 15 (5-15) 06/16/18 06:45 BUN 53 mg/dL (7-18) H 06/16/18 06:45 Creatinine 2.10 mg/dL (0.55-1.02) H 06/16/18 06:45 Est GFR (MDRD) Af Amer 31 mL/min (>60) L 06/16/18 06:45 Est GFR (MDRD) Non-Af 26 mL/min (>60) L 06/16/18 06:45 BUN/Creatinine Ratio 25.2 RATIO (10-20) H 06/16/18 06:45 Glucose 123 mg/dL (74-106) H 06/16/18 06:45 Weight used for dosin kg Estimated Creatinine Clearance: 26 mL/min Goal Trough: 15-20 mcg/mL Pharmacy Plan for Drug Dosing: Vancomycin 2000mg IV x1 followed by 1000mg IV q24h with trough prior to 3rd dose per policy. Will follow closely, considering patient's clinical condition her crcl is likely to change drastically. Pharmacy Service will continue to monitor and adjust dosing as required. Follow-Up Labs: Trough Vancomycin - 06/18 @ 0849
[2018-06-16] MEDS: CHLORHEXIDINE GLUC 2% CLOTH 1 EACH TOWELETTE TOPICAL (11:00)
[2018-06-16 11:33] LABS: Color, Urine Yellow (Yellow); Glucose, Dipstick 100 mg/dl (Normal); Hematocrit 42.8 % (37-47); Hemoglobin 13.7 g/dl (12.0-15.0); Ketone-Dipstick 5 mg/dl (Negative); Leukocyte Esterase-Dipstick 25 /ul (Negative); Mean Corpuscular Hgb 28.9 pg (27.0-32.0); Mean Corpuscular Volume 90.3 fL (81-99); Mean Platelet Vol. 11.5 fl (6.2-12.0); Nitrite-Dipstick Negative (Negative); Occult Blood-Urine 250 /ul (Negative); Platelet Count 104 K/mm3 (150-450); Protein-Dipstick 500 mg/dl (Negative); RBC Distribution Width CV 15.3 % (11.6-14.6); RBC Distribution Width SD 50.6 fl (35.1-43.9); Red Blood Count 4.74 M/mm3 (4.2-5.4); Specific Gravity, Urine 1.015 (1.002-1.030); Squamous Epithelial Cells - UA 0 SEEN /hpf (5-10); Urine Bilirubin Dipstick Negative (Negative); Urine Clarity Cloudy (Clear); Urine Urobilinogen Normal (Normal); White Blood Count 17.4 K/mm3 (4.4-11.0)
[2018-06-16 11:34] LABS: Scan Indicated on CBC? Y/N NO
[2018-06-16 11:45] LABS: Amorphous Sediment 1+; Anion Gap 12 (5-15); BUN 55 mg/dL (7-18); BUN/Creat Ratio 25.2 RATIO (10-20); Bacteria 2+ /hpf (None Seen); Calcium,Total 6.6 mg/dL (8.5-10.1); Chloride 105 mmol/L (98-107); Creatinine, Serum 2.18 mg/dL (0.55-1.02); EST Glomerular Filtration Rate 25 mL/min (>60); Est Glom Filt Rate - Afr Amer 30 mL/min (>60); Estimated Creatinine Clearance 24.88 ml/min; Glucose 167 mg/dL (74-106); Mucous, Urine 1+ /hpf (<or=2+); Potassium 4.9 mmol/L (3.5-5.1); Red Blood Cells-Urine 5-10 SEEN /hpf (0-5); Renal Epithelial Cells 0-5 SEEN /hpf (0-5); Sodium Level 139 mmol/L (136-145); Transitional Epithelial - Ur 0-5 SEEN /hpf (0-5); White Blood Cells 0-5 SEEN /hpf (0-5)
[2018-06-16] MEDS: Chlorhexidine 15 ML PO ×2 (11:50→21:36)
[2018-06-16 11:51] LABS: Bedside Glucose 204 mg/dL (70-110)
[2018-06-16] MEDS: HEPARIN/D5w 25,000 UNITS 25,000 UNITS/250 ML IV.SOLN. 15 UNITS IV (11:51)
--- NOTE | 2018-06-16 12:07 | NURSING ---
OGT advanced 5 cm per order; + air bolus auscultated and + withdraw of previous dark red gastric secretions.
[2018-06-16 12:22] LABS: M R Staph aureus DNA By PCR Negative (Negative); Probe Check PASS; Specimen Processing Control PASS
[2018-06-16 12:51] LABS: Reflex Lactate? Y
[2018-06-16 13:23] LABS: Prothrombin Time (Protime)PT. 35.6 SECONDS (11.7-14.9)
[2018-06-16 13:25] LABS: International Normalized Ratio 3.5
[2018-06-16 13:25] LABS: Urine Sodium 74 mmol/L (Not Establ.)
--- NOTE | 2018-06-16 16:37 | PCM.CONS.R ---
Problem List (1) LYNNETTE (acute kidney injury) Status: Acute Consultation - Renal PCP/ Referring MD: Requesting physician: [] Primary care physician: Jose Kaplan MD - History of Present Illness History of Present Illness: The patient is a 58 year old F past medical history of morbid obesity,tobacco smoking . Patient presented to [place] emergency room for progressive shortness of breath,cough fever and chills for the last 4 days. In the emergency room she was found to be hypoxic ,tachycardic and hypertensive chest x-ray shows bilateral pneumonia . Patient was initiated on Cardizem drip and admitted to in ICU . Last night CODE BLUE was called twice . Patient regained circulation with resuscitation. Patient needed 3 pressors support kidney team was consulted for acute kidney injury . In 2014 , creatinine was 0.9 . Patient presented with a creatinine 1.8 and worsened to 2.18 this morning along with anuria following the CODE BLUE . Patient currently is intubated . Awake alert following commands . She is only on one pressure when I saw her . She has Robertson catheter in place. Review of system: Unobtainable due to the patient condition. She is intubated [] - Allergies Allergies: Allergies aspirin Allergy (Verified 06/15/18 20:31) Swelling erythromycin base [Erythromycin Base] Allergy (Verified 06/15/18 20:31) Anaphylaxis Penicillins Allergy (Verified 06/15/18 20:31) Anaphylaxis venom-honey bee [bee venom (honey bee)] Adverse Reaction (Verified 06/15/18 20:31) Other - Current Medications Current Medications: Current Medications Acetaminophen (Tylenol) 650 mg PO Q6H PRN PRN PRN Reason: Non-cardiac pain (mod-severe) Albuterol Sulfate (Ventolin Aerosols) 2.5 mg INHALATION Q2H PRN PRN PRN Reason: SHORTNESS OF BREATH Albuterol/Ipratropium (Duoneb) 3 ml INHALATION Q4HWA.RT DYLAN Last Admin: 06/16/18 16:07 Dose: 3 ml Chlorhexidine Gluconate () 15 ml PO BID DYLAN Last Admin: 06/16/18 11:50 Dose: 15 ml Chlorhexidine Gluconate () 1 each TOPICAL DAILY DYLAN Last Admin: 06/16/18 11:00 Dose: 1 each Heparin Sodium (Porcine) (Heparin Na) 0 unit IV UD PRN; Protocol Heparin Sodium/Dextrose () 25,000 units in 250 mls @ 15 mls/hr IV .[id number] [facility]; Protocol Last Admin: 06/16/18 15:49 Dose: Not Given Sodium Chloride () 250 mls @ 15 mls/hr IV .[id number] PRN PRN Reason: SALINE FLUSH Last Admin: 06/16/18 08:53 Dose: 15 mls/hr Fentanyl () 100 mls @ 2.5 mls/hr IV .[id number] [facility] Pantoprazole Sodium 40 mg/ (Sodium Chloride) 110 mls @ 330 mls/hr IV Q12 [facility] Last Admin: 06/16/18 11:50 Dose: 330 mls/hr Vasopressin 40 units/ Sodium (Chloride) 52 mls @ 3.12 mls/hr IV .[id number] [facility] Last Admin: 06/16/18 07:14 Dose: 3.12 mls/hr Meropenem 1 gm/ Sodium (Chloride) 120 mls @ 33 mls/hr IV Q12 [facility] Last Admin: 06/16/18 11:49 Dose: 33 mls/hr Vancomycin IV Pharmacy to Dose (1 ea/ Sodium Chloride) 500 mls @ 250 mls/hr IV X1 PRN; Protocol PRN Reason: Rx to Dose Norepinephrine Bitartrate 16 (mg/ Dextrose) 516 mls @ 9.68 mls/hr IV .[id number] [facility] Last Admin: 06/16/18 15:26 Dose: 9.68 mls/hr Vancomycin HCl (Vancomycin) 1,000 mg in 200 mls @ 200 mls/hr IV Q24H [facility] Epinephrine HCl 2 mg/ Dextrose 502 mls @ 15.06 mls/hr IV .[id number] [facility]; Protocol Last Admin: 06/16/18 15:48 Dose: Not Given Ondansetron HCl (Zofran) 4 mg IV Q8H PRN PRN PRN Reason: NAUSEA/VOMITING Sodium Chloride () 5 - 15 ml IV UD PRN PRN Reason: SALINE FLUSH Last Admin: 06/16/18 03:38 Dose: 10 ml Sodium Chloride () 10 - 40 ml IV UD PRN PRN Reason: MULTILUMEN/HICMAN CATH FLUSH Last Admin: 06/16/18 11:53 Dose: 40 ml - Past Medical History Past Medical History (Chronic Problems): Chronic Problems Morbid obesity (Chronic) Tobacco use (Chronic) - Past Surgical History Surgical History: - - Left ankle surgery, left arm carpal tunnel surgery, tonsillectomy. - Social History Smoking Status: Current every day smoker - Patient notes that she is currently smoking 2-3 cigarettes/day. Alcohol: None Drugs: None - Family History Maternal History Items: - - Patient denies any marked maternal or paternal family history including heart disease, diabetes or cancer. Paternal History Items: - - Patient denies any marked maternal or paternal family history including heart disease, diabetes or cancer. Patient Problems: Active and Suspected Problems Severe sepsis (Acute) Acute respiratory failure with hypoxia (Acute) Pneumonia (Acute) Atrial fibrillation with RVR (Acute) LYNNETTE (acute kidney injury) (Acute) - Physical Exam General: Alert, No apparent distress HEENT: Atraumatic Oral: Moist Mucosa Neck: Supple, No JVD Lungs: - - Decreased breath sounds over both lung spaces.no wheezing. Equal air entry Cardiovascular: Regular rate, Regular Rhythm, Normal S1, Normal S2 Abdomen: Bowel Sounds Present, Soft, Non Tender Extremities: No clubbing, No cyanosis, No edema Skin: No rashes Lymphatic: No Cervical, Supraclavicular, or Inguinal Adenopathy Psych/Mental Status: Appropriate Vital Signs Temp Pulse Resp BP Pulse Ox 99.4 F H 80 45 H 98/58 L 93 06/16/18 16:00 06/16/18 16:30 06/16/18 16:07 06/16/18 16:30 06/16/18 16:07 Oxygen Flow Rate (L/min) 70 Oxygen Delivery Method Mechanical Ventilator Weight: 107 kg Body Mass Index (BMI) 40.4 Intake and Output for Last 24 Hours 06/14/18 06/15/18 06/16/18 23:59 23:59 23:59 Intake Total 7330.0 / 7330.0 Output Total 210 / 210 Balance 7120.0 / 7120.0 Microbiology Past 72 Hours 06/16/18 08:10 Gram Stain - Final Sputum, Tracheal Aspirate 06/16/18 05:20 Gram Stain - Final Transtracheal Aspirate 06/15/18 20:45 Respiratory Panel (PCR) - Final Mucosa - Nose Influenza A (Subtype H1) 06/16/18 11:15 Legionella Antigen - Final Urine Catheter - Robertson 06/16/18 11:15 Streptococcus pneumoniae Antigen (M - Final Urine Catheter - Robertson Laboratory Tests Past 24 Hrs 06/15/18 06/15/18 06/15/18 20:15 20:31 20:31 WBC 14.0 H RBC 5.72 H Hgb 16.8 H Hct 49.7 H MCV 86.9 MCH 29.4 MCHC 33.8 RDW 14.8 H RDW Differential 47.0 H Plt Count 190 MPV 12.0 Immature Gran % (Auto) 0.400 Neut % (Auto) 85.7 H Lymph % (Auto) 9.5 L [place] % (Auto) 4.1 Eos % (Auto) 0.0 Baso % (Auto) 0.3 Absolute Neuts (auto) 12.0 H Absolute Lymphs (auto) 1.34 Total Counted Not Reportable Neutrophils % (Manual) Band Neutrophils % Lymphocytes % (Manual) Monocytes % (Manual) Metamyelocytes % Plasma Cell % (Manual) Nucleated RBCs/100 WBC Diff Path Review Reactive Lymphocytes Platelet Estimate ADEQUATE Plt Morphology Comment LARGE RBC Morphology NORM C+C PT INR APTT 31.3 Specimen Type Sample Site pH Bicarbonate Actual POC Total CO2 Base Excess O2 Saturation O2 % ABG pCO2 ABG pO2 [place] Test Respiration Rate O2 Delivery Device Minute Volume Vent Mode Tidal Volume POC PEEP Blood Gas Notified Whom Blood Gas Notified Time Sodium 135 L Potassium 3.4 L Chloride 98 Carbon Dioxide 22.0 Anion Gap 15 BUN 57 H Creatinine 1.85 H Estim Creat Clear Calc 29.32 Est GFR (MDRD) Af Amer 36 L Est GFR (MDRD) Non-Af 30 L BUN/Creatinine Ratio 30.8 H Glucose 144 H Hemoglobin A1c Lactic Acid Calcium 8.8 Phosphorus Magnesium Total Bilirubin AST ALT Alkaline Phosphatase Troponin I < 0.015 B-Natriuretic Peptide Total Protein Albumin Globulin Albumin/Globulin Ratio TSH Free T4 Urine Color Urine Clarity Urine pH Ur Specific [place] Urine Protein Urine Glucose (UA) Urine Ketones Urine Occult Blood Urine Nitrite Urine Bilirubin Urine Urobilinogen Ur Leukocyte Esterase Urine RBC Urine WBC Ur Squamous Epith Cells Ur Transition Epith Cell Ur Renal Epithelial Cell Amorphous Sediment Urine Bacteria Urine Mucus Ur Random Sodium MRSA (PCR) 06/15/18 06/15/18 06/15/18 20:31 20:50 22:58 WBC RBC Hgb Hct MCV MCH MCHC RDW RDW Differential Plt Count MPV Immature Gran % (Auto) Neut % (Auto) Lymph % (Auto) [place] % (Auto) Eos % (Auto) Baso % (Auto) Absolute Neuts (auto) Absolute Lymphs (auto) Total Counted Neutrophils % (Manual) Band Neutrophils % Lymphocytes % (Manual) Monocytes % (Manual) Metamyelocytes % Plasma Cell % (Manual) Nucleated RBCs/100 WBC Diff Path Review Reactive Lymphocytes Platelet Estimate Plt Morphology Comment RBC Morphology PT INR APTT Specimen Type ART Sample Site L Radial pH 7.40 Bicarbonate Actual 22.3 POC Total CO2 23 Base Excess -3 L O2 Saturation 94 L O2 % 50 ABG pCO2 36.0 ABG pO2 69 L [place] Test POS Respiration Rate O2 Delivery Device Vent Mask Minute Volume Vent Mode Tidal Volume POC PEEP Blood Gas Notified Whom [facility] MD Blood Gas Notified Time 2250 Sodium Potassium Chloride Carbon Dioxide Anion Gap BUN Creatinine Estim Creat Clear Calc Est GFR (MDRD) Af Amer Est GFR (MDRD) Non-Af BUN/Creatinine Ratio Glucose Hemoglobin A1c Lactic Acid 3.8 H Calcium Phosphorus Magnesium Total Bilirubin AST ALT Alkaline Phosphatase Troponin I B-Natriuretic Peptide 159.1 H Total Protein Albumin Globulin Albumin/Globulin Ratio TSH Free T4 Urine Color Urine Clarity Urine pH Ur Specific [place] Urine Protein Urine Glucose (UA) Urine Ketones Urine Occult Blood Urine Nitrite Urine Bilirubin Urine Urobilinogen Ur Leukocyte Esterase Urine RBC Urine WBC Ur Squamous Epith Cells Ur Transition Epith Cell Ur Renal Epithelial Cell Amorphous Sediment Urine Bacteria Urine Mucus Ur Random Sodium MRSA (PCR) 06/15/18 06/15/18 06/15/18 23:16 23:16 23:16 WBC RBC Hgb Hct MCV MCH MCHC RDW RDW Differential Plt Count MPV Immature Gran % (Auto) Neut % (Auto) Lymph % (Auto) [place] % (Auto) Eos % (Auto) Baso % (Auto) Absolute Neuts (auto) Absolute Lymphs (auto) Total Counted Neutrophils % (Manual) Band Neutrophils % Lymphocytes % (Manual) Monocytes % (Manual) Metamyelocytes % Plasma Cell % (Manual) Nucleated RBCs/100 WBC Diff Path Review Reactive Lymphocytes Platelet Estimate Plt Morphology Comment RBC Morphology PT INR APTT Specimen Type Sample Site pH Bicarbonate Actual POC Total CO2 Base Excess O2 Saturation O2 % ABG pCO2 ABG pO2 [place] Test Respiration Rate O2 Delivery Device Minute Volume Vent Mode Tidal Volume POC PEEP Blood Gas Notified Whom Blood Gas Notified Time Sodium Potassium Chloride Carbon Dioxide Anion Gap BUN Creatinine Estim Creat Clear Calc Est GFR (MDRD) Af Amer Est GFR (MDRD) Non-Af BUN/Creatinine Ratio Glucose Hemoglobin A1c 5.7 Lactic Acid Calcium Phosphorus 2.8 Magnesium 2.0 Total Bilirubin AST ALT Alkaline Phosphatase Troponin I B-Natriuretic Peptide Total Protein Albumin Globulin Albumin/Globulin Ratio TSH 0.52 Free T4 Urine Color Urine Clarity Urine pH Ur Specific [place] Urine Protein Urine Glucose (UA) Urine Ketones Urine Occult Blood Urine Nitrite Urine Bilirubin Urine Urobilinogen Ur Leukocyte Esterase Urine RBC Urine WBC Ur Squamous Epith Cells Ur Transition Epith Cell Ur Renal Epithelial Cell Amorphous Sediment Urine Bacteria Urine Mucus Ur Random Sodium MRSA (PCR) 06/16/18 06/16/18 06/16/18 01:15 03:50 03:50 WBC 16.2 H RBC 5.04 Hgb 14.8 Hct 45.7 MCV 90.7 MCH 29.4 MCHC 32.4 RDW 15.1 H RDW Differential 50.3 H Plt Count 164 MPV 12.1 H Immature Gran % (Auto) Neut % (Auto) Not Reportable Lymph % (Auto) [place] % (Auto) Eos % (Auto) Baso % (Auto) Absolute Neuts (auto) 12.8 H Absolute Lymphs (auto) 2.43 Total Counted 100 Neutrophils % (Manual) 78 H Band Neutrophils % 1 Lymphocytes % (Manual) 15 L Monocytes % (Manual) 4 Metamyelocytes % Plasma Cell % (Manual) 2 Nucleated RBCs/100 WBC Diff Path Review May foll Reactive Lymphocytes 1+ Platelet Estimate ADEQUATE Plt Morphology Comment RBC Morphology PT INR APTT Specimen Type Sample Site pH Bicarbonate Actual POC Total CO2 Base Excess O2 Saturation O2 % ABG pCO2 ABG pO2 [place] Test Respiration Rate O2 Delivery Device Minute Volume Vent Mode Tidal Volume POC PEEP Blood Gas Notified Whom Blood Gas Notified Time Sodium 138 Potassium 4.4 Chloride 102 Carbon Dioxide 20.0 L Anion Gap 16 H BUN 53 H Creatinine 1.77 H Estim Creat Clear Calc 30.65 Est GFR (MDRD) Af Amer 38 L Est GFR (MDRD) Non-Af 32 L BUN/Creatinine Ratio 29.9 H Glucose 195 H Hemoglobin A1c Lactic Acid 1.7 Calcium 7.9 L Phosphorus Magnesium Total Bilirubin 1.10 H AST 546 H ALT 203 H Alkaline Phosphatase 69 Troponin I B-Natriuretic Peptide Total Protein 6.5 Albumin 2.1 L Globulin 4.4 H Albumin/Globulin Ratio 0.5 L TSH Free T4 Urine Color Urine Clarity Urine pH Ur Specific [place] Urine Protein Urine Glucose (UA) Urine Ketones Urine Occult Blood Urine Nitrite Urine Bilirubin Urine Urobilinogen Ur Leukocyte Esterase Urine RBC Urine WBC Ur Squamous Epith Cells Ur Transition Epith Cell Ur Renal Epithelial Cell Amorphous Sediment Urine Bacteria Urine Mucus Ur Random Sodium MRSA (PCR) 06/16/18 06/16/18 06/16/18 03:50 03:50 03:50 WBC RBC Hgb Hct MCV MCH MCHC RDW RDW Differential Plt Count MPV Immature Gran % (Auto) Neut % (Auto) Lymph % (Auto) [place] % (Auto) Eos % (Auto) Baso % (Auto) Absolute Neuts (auto) Absolute Lymphs (auto) Total Counted Neutrophils % (Manual) Band Neutrophils % Lymphocytes % (Manual) Monocytes % (Manual) Metamyelocytes % Plasma Cell % (Manual) Nucleated RBCs/100 WBC Diff Path Review Reactive Lymphocytes Platelet Estimate Plt Morphology Comment RBC Morphology PT 17.7 H INR 1.5 APTT 67.6 H Specimen Type Sample Site pH Bicarbonate Actual POC Total CO2 Base Excess O2 Saturation O2 % ABG pCO2 ABG pO2 [place] Test Respiration Rate O2 Delivery Device Minute Volume Vent Mode Tidal Volume POC PEEP Blood Gas Notified Whom Blood Gas Notified Time Sodium Potassium Chloride Carbon Dioxide Anion Gap BUN Creatinine Estim Creat Clear Calc Est GFR (MDRD) Af Amer Est GFR (MDRD) Non-Af BUN/Creatinine Ratio Glucose Hemoglobin A1c Lactic Acid Calcium Phosphorus 8.5 H Magnesium 2.6 Total Bilirubin AST ALT Alkaline Phosphatase Troponin I 0.037 B-Natriuretic Peptide Total Protein Albumin Globulin Albumin/Globulin Ratio TSH Free T4 Urine Color Urine Clarity Urine pH Ur Specific [place] Urine Protein Urine Glucose (UA) Urine Ketones Urine Occult Blood Urine Nitrite Urine Bilirubin Urine Urobilinogen Ur Leukocyte Esterase Urine RBC Urine WBC Ur Squamous Epith Cells Ur Transition Epith Cell Ur Renal Epithelial Cell Amorphous Sediment Urine Bacteria Urine Mucus Ur Random Sodium MRSA (PCR) 06/16/18 06/16/18 06/16/18 06:45 06:45 06:45 WBC 21.3 H RBC 5.03 Hgb 14.6 Hct 46.0 MCV 91.5 MCH 29.0 MCHC 31.7 L RDW 15.3 H RDW Differential 51.3 H Plt Count 151 MPV 11.8 Immature Gran % (Auto) Neut % (Auto) Not Reportable Lymph % (Auto) [place] % (Auto) Eos % (Auto) Baso % (Auto) Absolute Neuts (auto) 16.0 H Absolute Lymphs (auto) 2.80 Total Counted 100 Neutrophils % (Manual) 71 H Band Neutrophils % 4 Lymphocytes % (Manual) 13 L Monocytes % (Manual) 11 H Metamyelocytes % 1 Plasma Cell % (Manual) Nucleated RBCs/100 WBC 1 Diff Path Review May foll Reactive Lymphocytes RARE Platelet Estimate ADEQUATE Plt Morphology Comment RBC Morphology NORM C+C PT INR APTT 61.5 H Specimen Type Sample Site pH Bicarbonate Actual POC Total CO2 Base Excess O2 Saturation O2 % ABG pCO2 ABG pO2 [place] Test Respiration Rate O2 Delivery Device Minute Volume Vent Mode Tidal Volume POC PEEP Blood Gas Notified Whom Blood Gas Notified Time Sodium 139 Potassium 5.8 H Chloride 103 Carbon Dioxide 21.0 Anion Gap 15 BUN 53 H Creatinine 2.10 H Estim Creat Clear Calc 25.83 Est GFR (MDRD) Af Amer 31 L Est GFR (MDRD) Non-Af 26 L BUN/Creatinine Ratio 25.2 H Glucose 123 H Hemoglobin A1c Lactic Acid Calcium 8.0 L Phosphorus 6.8 H Magnesium 3.1 H Total Bilirubin 2.00 H AST 1922 H ALT 700 H Alkaline Phosphatase 82 Troponin I B-Natriuretic Peptide Total Protein 6.6 Albumin 2.1 L Globulin 4.5 H Albumin/Globulin Ratio 0.5 L TSH Free T4 Urine Color Urine Clarity Urine pH Ur Specific [place] Urine Protein Urine Glucose (UA) Urine Ketones Urine Occult Blood Urine Nitrite Urine Bilirubin Urine Urobilinogen Ur Leukocyte Esterase Urine RBC Urine WBC Ur Squamous Epith Cells Ur Transition Epith Cell Ur Renal Epithelial Cell Amorphous Sediment Urine Bacteria Urine Mucus Ur Random Sodium MRSA (PCR) 06/16/18 06/16/18 06/16/18 06:45 07:04 08:15 WBC RBC Hgb Hct MCV MCH MCHC RDW RDW Differential Plt Count MPV Immature Gran % (Auto) Neut % (Auto) Lymph % (Auto) [place] % (Auto) Eos % (Auto) Baso % (Auto) Absolute Neuts (auto) Absolute Lymphs (auto) Total Counted Neutrophils % (Manual) Band Neutrophils % Lymphocytes % (Manual) Monocytes % (Manual) Metamyelocytes % Plasma Cell % (Manual) Nucleated RBCs/100 WBC Diff Path Review Reactive Lymphocytes Platelet Estimate Plt Morphology Comment RBC Morphology PT INR APTT Specimen Type ANN Sample Site OTHER pH 7.16 L* Bicarbonate Actual 18.5 L POC Total CO2 20 Base Excess -10 L O2 Saturation 93 L O2 % 80 ABG pCO2 52.4 H ABG pO2 86 [place] Test Respiration Rate 12 O2 Delivery Device Vent Minute Volume 15.00 Vent Mode A-C Tidal Volume 450 POC PEEP 5 Blood Gas Notified Whom ICU MD Blood Gas Notified Time 703 Sodium Potassium Chloride Carbon Dioxide Anion Gap BUN Creatinine Estim Creat Clear Calc Est GFR (MDRD) Af Amer Est GFR (MDRD) Non-Af BUN/Creatinine Ratio Glucose Hemoglobin A1c Lactic Acid 4.9 H* Calcium Phosphorus Magnesium Total Bilirubin AST ALT Alkaline Phosphatase Troponin I B-Natriuretic Peptide Total Protein Albumin Globulin Albumin/Globulin Ratio TSH Free T4 1.56 H Urine Color Urine Clarity Urine pH Ur Specific [place] Urine Protein Urine Glucose (UA) Urine Ketones Urine Occult Blood Urine Nitrite Urine Bilirubin Urine Urobilinogen Ur Leukocyte Esterase Urine RBC Urine WBC Ur Squamous Epith Cells Ur Transition Epith Cell Ur Renal Epithelial Cell Amorphous Sediment Urine Bacteria Urine Mucus Ur Random Sodium MRSA (PCR) 06/16/18 06/16/18 06/16/18 08:25 08:25 09:10 WBC RBC Hgb Hct MCV MCH MCHC RDW RDW Differential Plt Count MPV Immature Gran % (Auto) Neut % (Auto) Lymph % (Auto) [place] % (Auto) Eos % (Auto) Baso % (Auto) Absolute Neuts (auto) Absolute Lymphs (auto) Total Counted Neutrophils % (Manual) Band Neutrophils % Lymphocytes % (Manual) Monocytes % (Manual) Metamyelocytes % Plasma Cell % (Manual) Nucleated RBCs/100 WBC Diff Path Review Reactive Lymphocytes Platelet Estimate Plt Morphology Comment RBC Morphology PT 35.6 H INR 3.5 H* APTT Specimen Type Sample Site pH Bicarbonate Actual POC Total CO2 Base Excess O2 Saturation O2 % ABG pCO2 ABG pO2 [place] Test Respiration Rate O2 Delivery Device Minute Volume Vent Mode Tidal Volume POC PEEP Blood Gas Notified Whom Blood Gas Notified Time Sodium Potassium Chloride Carbon Dioxide Anion Gap BUN Creatinine Estim Creat Clear Calc Est GFR (MDRD) Af Amer Est GFR (MDRD) Non-Af BUN/Creatinine Ratio Glucose Hemoglobin A1c Lactic Acid Calcium Phosphorus Magnesium Total Bilirubin AST ALT Alkaline Phosphatase Troponin I 0.101 H B-Natriuretic Peptide Total Protein Albumin Globulin Albumin/Globulin Ratio TSH Free T4 Urine Color Urine Clarity Urine pH Ur Specific [place] Urine Protein Urine Glucose (UA) Urine Ketones Urine Occult Blood Urine Nitrite Urine Bilirubin Urine Urobilinogen Ur Leukocyte Esterase Urine RBC Urine WBC Ur Squamous Epith Cells Ur Transition Epith Cell Ur Renal Epithelial Cell Amorphous Sediment Urine Bacteria Urine Mucus Ur Random Sodium MRSA (PCR) Negative 06/16/18 06/16/18 06/16/18 11:15 11:15 11:15 WBC 17.4 H RBC 4.74 Hgb 13.7 Hct 42.8 MCV 90.3 MCH 28.9 MCHC 32.0 RDW 15.3 H RDW Differential 50.6 H Plt Count 104 L MPV 11.5 Immature Gran % (Auto) Neut % (Auto) Lymph % (Auto) [place] % (Auto) Eos % (Auto) Baso % (Auto) Absolute Neuts (auto) Absolute Lymphs (auto) Total Counted Neutrophils % (Manual) Band Neutrophils % Lymphocytes % (Manual) Monocytes % (Manual) Metamyelocytes % Plasma Cell % (Manual) Nucleated RBCs/100 WBC Diff Path Review Reactive Lymphocytes Platelet Estimate Plt Morphology Comment RBC Morphology PT INR APTT Specimen Type Sample Site pH Bicarbonate Actual POC Total CO2 Base Excess O2 Saturation O2 % ABG pCO2 ABG pO2 [place] Test Respiration Rate O2 Delivery Device Minute Volume Vent Mode Tidal Volume POC PEEP Blood Gas Notified Whom Blood Gas Notified Time Sodium 139 Potassium 4.9 Chloride 105 Carbon Dioxide 22.0 Anion Gap 12 BUN 55 H Creatinine 2.18 H Estim Creat Clear Calc 24.88 Est GFR (MDRD) Af Amer 30 L Est GFR (MDRD) Non-Af 25 L BUN/Creatinine Ratio 25.2 H Glucose 167 H Hemoglobin A1c Lactic Acid Calcium 6.6 L Phosphorus Magnesium Total Bilirubin AST ALT Alkaline Phosphatase Troponin I B-Natriuretic Peptide Total Protein Albumin Globulin Albumin/Globulin Ratio TSH Free T4 Urine Color Yellow Urine Clarity Cloudy Urine pH 6.0 Ur Specific [place] 1.015 Urine Protein 500 H Urine Glucose (UA) 100 H Urine Ketones 5 H Urine Occult Blood 250 H Urine Nitrite Negative Urine Bilirubin Negative Urine Urobilinogen Normal Ur Leukocyte Esterase 25 H Urine RBC 5-10 SEEN Urine WBC 0-5 SEEN Ur Squamous Epith Cells 0 SEEN Ur Transition Epith Cell 0-5 SEEN Ur Renal Epithelial Cell 0-5 SEEN Amorphous Sediment 1+ Urine Bacteria 2+ Urine Mucus 1+ Ur Random Sodium MRSA (PCR) 06/16/18 11:15 WBC RBC Hgb Hct MCV MCH MCHC RDW RDW Differential Plt Count MPV Immature Gran % (Auto) Neut % (Auto) Lymph % (Auto) [place] % (Auto) Eos % (Auto) Baso % (Auto) Absolute Neuts (auto) Absolute Lymphs (auto) Total Counted Neutrophils % (Manual) Band Neutrophils % Lymphocytes % (Manual) Monocytes % (Manual) Metamyelocytes % Plasma Cell % (Manual) Nucleated RBCs/100 WBC Diff Path Review Reactive Lymphocytes Platelet Estimate Plt Morphology Comment RBC Morphology PT INR APTT Specimen Type Sample Site pH Bicarbonate Actual POC Total CO2 Base Excess O2 Saturation O2 % ABG pCO2 ABG pO2 [place] Test Respiration Rate O2 Delivery Device Minute Volume Vent Mode Tidal Volume POC PEEP Blood Gas Notified Whom Blood Gas Notified Time Sodium Potassium Chloride Carbon Dioxide Anion Gap BUN Creatinine Estim Creat Clear Calc Est GFR (MDRD) Af Amer Est GFR (MDRD) Non-Af BUN/Creatinine Ratio Glucose Hemoglobin A1c Lactic Acid Calcium Phosphorus Magnesium Total Bilirubin AST ALT Alkaline Phosphatase Troponin I B-Natriuretic Peptide Total Protein Albumin Globulin Albumin/Globulin Ratio TSH Free T4 Urine Color Urine Clarity Urine pH Ur Specific [place] Urine Protein Urine Glucose (UA) Urine Ketones Urine Occult Blood Urine Nitrite Urine Bilirubin Urine Urobilinogen Ur Leukocyte Esterase Urine RBC Urine WBC Ur Squamous Epith Cells Ur Transition Epith Cell Ur Renal Epithelial Cell Amorphous Sediment Urine Bacteria Urine Mucus Ur Random Sodium 74 MRSA (PCR) POC Glucose 06/16/18 11:43 POC Glucose 204 H Assessment/Plan All Active Problems Severe sepsis (Acute) Acute respiratory failure with hypoxia (Acute) Pneumonia (Acute) Atrial fibrillation with RVR (Acute) LYNNETTE (acute kidney injury) (Acute) 1-acute kidney injury. Most probably related to ischemic ATN following CODE BLUE. Creatinine is rising. Last creatinine 2.8 this morning. Patient is anuric. No hyperkalemia, no acidosis, no fluid overload. No indication for hemodialysis today. I will reevaluate the patient for hemodialysis tomorrow. Please keep mean arterial pressure more than 65. Avoid nephrotoxic. I will order UA along with urine indices. 2-acute respiratory failure following CODE BLUE currently on vent support as per the director of sustainability. 3-bilateral pneumonia. On antibiotics please dose antibiotics as per the current GFR 4-A. fib with RVR. Patient needed Cardizem drip now back to sinus rhythm. Thank you for the consult. Renal team will continue to follow. Please call with any question or concern Aaliyah Muñoz MD [phone]
--- NOTE | 2018-06-16 16:42 | CON.PCM_ITS ---
Problem List (1) LYNNETTE (acute kidney injury) Status: Acute Consultation - Renal PCP/ Referring MD: Requesting physician: [] Primary care physician: Jose Kaplan MD - History of Present Illness History of Present Illness: The patient is a 58 year old F past medical history of morbid obesity,tobacco smoking . Patient presented to [place] emergency room for progressive shortness of breath,cough fever and chills for the last 4 days. In the emergency room she was found to be hypoxic ,tachycardic and hypertensive chest x-ray shows bilateral pneumonia . Patient was initiated on Cardizem drip and admitted to in ICU . Last night CODE BLUE was called twice . Patient regained circulation with resuscitation. Patient needed 3 pressors support kidney team was consulted for acute kidney injury . In 2014 , creatinine was 0.9 . Patient presented with a creatinine 1.8 and worsened to 2.18 this morning along with anuria following the CODE BLUE . Patient currently is intubated . Awake alert following commands . She is only on one pressure when I saw her . She has Robertson catheter in place. Review of system: Unobtainable due to the patient condition. She is intubated [] - Allergies Allergies: Allergies aspirin Allergy (Verified 06/15/18 20:31) Swelling erythromycin base [Erythromycin Base] Allergy (Verified 06/15/18 20:31) Anaphylaxis Penicillins Allergy (Verified 06/15/18 20:31) Anaphylaxis venom-honey bee [bee venom (honey bee)] Adverse Reaction (Verified 06/15/18 20:31) Other - Current Medications Current Medications: Current Medications Acetaminophen (Tylenol) 650 mg PO Q6H PRN PRN PRN Reason: Non-cardiac pain (mod-severe) Albuterol Sulfate (Ventolin Aerosols) 2.5 mg INHALATION Q2H PRN PRN PRN Reason: SHORTNESS OF BREATH Albuterol/Ipratropium (Duoneb) 3 ml INHALATION Q4HWA.RT DYLAN Last Admin: 06/16/18 16:07 Dose: 3 ml Chlorhexidine Gluconate () 15 ml PO BID DYLAN Last Admin: 06/16/18 11:50 Dose: 15 ml Chlorhexidine Gluconate () 1 each TOPICAL DAILY DYLAN Last Admin: 06/16/18 11:00 Dose: 1 each Heparin Sodium (Porcine) (Heparin Na) 0 unit IV UD PRN; Protocol Heparin Sodium/Dextrose () 25,000 units in 250 mls @ 15 mls/hr IV .[id number] [facility]; Protocol Last Admin: 06/16/18 15:49 Dose: Not Given Sodium Chloride () 250 mls @ 15 mls/hr IV .[id number] PRN PRN Reason: SALINE FLUSH Last Admin: 06/16/18 08:53 Dose: 15 mls/hr Fentanyl () 100 mls @ 2.5 mls/hr IV .[id number] [facility] Pantoprazole Sodium 40 mg/ (Sodium Chloride) 110 mls @ 330 mls/hr IV Q12 [facility] Last Admin: 06/16/18 11:50 Dose: 330 mls/hr Vasopressin 40 units/ Sodium (Chloride) 52 mls @ 3.12 mls/hr IV .[id number] [facility] Last Admin: 06/16/18 07:14 Dose: 3.12 mls/hr Meropenem 1 gm/ Sodium (Chloride) 120 mls @ 33 mls/hr IV Q12 [facility] Last Admin: 06/16/18 11:49 Dose: 33 mls/hr Vancomycin IV Pharmacy to Dose (1 ea/ Sodium Chloride) 500 mls @ 250 mls/hr IV X1 PRN; Protocol PRN Reason: Rx to Dose Norepinephrine Bitartrate 16 (mg/ Dextrose) 516 mls @ 9.68 mls/hr IV .[id number] [facility] Last Admin: 06/16/18 15:26 Dose: 9.68 mls/hr Vancomycin HCl (Vancomycin) 1,000 mg in 200 mls @ 200 mls/hr IV Q24H [facility] Epinephrine HCl 2 mg/ Dextrose 502 mls @ 15.06 mls/hr IV .[id number] [facility]; Protocol Last Admin: 06/16/18 15:48 Dose: Not Given Ondansetron HCl (Zofran) 4 mg IV Q8H PRN PRN PRN Reason: NAUSEA/VOMITING Sodium Chloride () 5 - 15 ml IV UD PRN PRN Reason: SALINE FLUSH Last Admin: 06/16/18 03:38 Dose: 10 ml Sodium Chloride () 10 - 40 ml IV UD PRN PRN Reason: MULTILUMEN/HICMAN CATH FLUSH Last Admin: 06/16/18 11:53 Dose: 40 ml - Past Medical History Past Medical History (Chronic Problems): Chronic Problems Morbid obesity (Chronic) Tobacco use (Chronic) - Past Surgical History Surgical History: - - Left ankle surgery, left arm carpal tunnel surgery, tonsillectomy. - Social History Smoking Status: Current every day smoker - Patient notes that she is currently smoking 2-3 cigarettes/day. Alcohol: None Drugs: None - Family History Maternal History Items: - - Patient denies any marked maternal or paternal family history including heart disease, diabetes or cancer. Paternal History Items: - - Patient denies any marked maternal or paternal family history including heart disease, diabetes or cancer. Patient Problems: Active and Suspected Problems Severe sepsis (Acute) Acute respiratory failure with hypoxia (Acute) Pneumonia (Acute) Atrial fibrillation with RVR (Acute) LYNNETTE (acute kidney injury) (Acute) - Physical Exam General: Alert, No apparent distress HEENT: Atraumatic Oral: Moist Mucosa Neck: Supple, No JVD Lungs: - - Decreased breath sounds over both lung spaces.no wheezing. Equal air entry Cardiovascular: Regular rate, Regular Rhythm, Normal S1, Normal S2 Abdomen: Bowel Sounds Present, Soft, Non Tender Extremities: No clubbing, No cyanosis, No edema Skin: No rashes Lymphatic: No Cervical, Supraclavicular, or Inguinal Adenopathy Psych/Mental Status: Appropriate Vital Signs Temp Pulse Resp BP Pulse Ox 99.4 F H 80 45 H 98/58 L 93 06/16/18 16:00 06/16/18 16:30 06/16/18 16:07 06/16/18 16:30 06/16/18 16:07 Oxygen Flow Rate (L/min) 70 Oxygen Delivery Method Mechanical Ventilator Weight: 107 kg Body Mass Index (BMI) 40.4 Intake and Output for Last 24 Hours 06/14/18 06/15/18 06/16/18 23:59 23:59 23:59 Intake Total 7330.0 / 7330.0 Output Total 210 / 210 Balance 7120.0 / 7120.0 Microbiology Past 72 Hours 06/16/18 08:10 Gram Stain - Final Sputum, Tracheal Aspirate 06/16/18 05:20 Gram Stain - Final Transtracheal Aspirate 06/15/18 20:45 Respiratory Panel (PCR) - Final Mucosa - Nose Influenza A (Subtype H1) 06/16/18 11:15 Legionella Antigen - Final Urine Catheter - Robertson 06/16/18 11:15 Streptococcus pneumoniae Antigen (M - Final Urine Catheter - Robertson Laboratory Tests Past 24 Hrs 06/15/18 06/15/18 06/15/18 20:15 20:31 20:31 WBC 14.0 H RBC 5.72 H Hgb 16.8 H Hct 49.7 H MCV 86.9 MCH 29.4 MCHC 33.8 RDW 14.8 H RDW Differential 47.0 H Plt Count 190 MPV 12.0 Immature Gran % (Auto) 0.400 Neut % (Auto) 85.7 H Lymph % (Auto) 9.5 L [place]er % (Auto) 4.1 Eos % (Auto) 0.0 Baso % (Auto) 0.3 Absolute Neuts (auto) 12.0 H Absolute Lymphs (auto) 1.34 Total Counted Not Reportable Neutrophils % (Manual) Band Neutrophils % Lymphocytes % (Manual) Monocytes % (Manual) Metamyelocytes % Plasma Cell % (Manual) Nucleated RBCs/100 WBC Diff Path Review Reactive Lymphocytes Platelet Estimate ADEQUATE Plt Morphology Comment LARGE RBC Morphology NORM C+C PT INR APTT 31.3 Specimen Type Sample Site pH Bicarbonate Actual POC Total CO2 Base Excess O2 Saturation O2 % ABG pCO2 ABG pO2 [place] Test Respiration Rate O2 Delivery Device Minute Volume Vent Mode Tidal Volume POC PEEP Blood Gas Notified Whom Blood Gas Notified Time Sodium 135 L Potassium 3.4 L Chloride 98 Carbon Dioxide 22.0 Anion Gap 15 BUN 57 H Creatinine 1.85 H Estim Creat Clear Calc 29.32 Est GFR (MDRD) Af Amer 36 L Est GFR (MDRD) Non-Af 30 L BUN/Creatinine Ratio 30.8 H Glucose 144 H Hemoglobin A1c Lactic Acid Calcium 8.8 Phosphorus Magnesium Total Bilirubin AST ALT Alkaline Phosphatase Troponin I < 0.015 B-Natriuretic Peptide Total Protein Albumin Globulin Albumin/Globulin Ratio TSH Free T4 Urine Color Urine Clarity Urine pH Ur Specific [place] Urine Protein Urine Glucose (UA) Urine Ketones Urine Occult Blood Urine Nitrite Urine Bilirubin Urine Urobilinogen Ur Leukocyte Esterase Urine RBC Urine WBC Ur Squamous Epith Cells Ur Transition Epith Cell Ur Renal Epithelial Cell Amorphous Sediment Urine Bacteria Urine Mucus Ur Random Sodium MRSA (PCR) 06/15/18 06/15/18 06/15/18 20:31 20:50 22:58 WBC RBC Hgb Hct MCV MCH MCHC RDW RDW Differential Plt Count MPV Immature Gran % (Auto) Neut % (Auto) Lymph % (Auto) [place] % (Auto) Eos % (Auto) Baso % (Auto) Absolute Neuts (auto) Absolute Lymphs (auto) Total Counted Neutrophils % (Manual) Band Neutrophils % Lymphocytes % (Manual) Monocytes % (Manual) Metamyelocytes % Plasma Cell % (Manual) Nucleated RBCs/100 WBC Diff Path Review Reactive Lymphocytes Platelet Estimate Plt Morphology Comment RBC Morphology PT INR APTT Specimen Type ART Sample Site L Radial pH 7.40 Bicarbonate Actual 22.3 POC Total CO2 23 Base Excess -3 L O2 Saturation 94 L O2 % 50 ABG pCO2 36.0 ABG pO2 69 L [place] Test POS Respiration Rate O2 Delivery Device Vent Mask Minute Volume Vent Mode Tidal Volume POC PEEP Blood Gas Notified Whom [facility] MD Blood Gas Notified Time 2250 Sodium Potassium Chloride Carbon Dioxide Anion Gap BUN Creatinine Estim Creat Clear Calc Est GFR (MDRD) Af Amer Est GFR (MDRD) Non-Af BUN/Creatinine Ratio Glucose Hemoglobin A1c Lactic Acid 3.8 H Calcium Phosphorus Magnesium Total Bilirubin AST ALT Alkaline Phosphatase Troponin I B-Natriuretic Peptide 159.1 H Total Protein Albumin Globulin Albumin/Globulin Ratio TSH Free T4 Urine Color Urine Clarity Urine pH Ur Specific [place] Urine Protein Urine Glucose (UA) Urine Ketones Urine Occult Blood Urine Nitrite Urine Bilirubin Urine Urobilinogen Ur Leukocyte Esterase Urine RBC Urine WBC Ur Squamous Epith Cells Ur Transition Epith Cell Ur Renal Epithelial Cell Amorphous Sediment Urine Bacteria Urine Mucus Ur Random Sodium MRSA (PCR) 06/15/18 06/15/18 06/15/18 23:16 23:16 23:16 WBC RBC Hgb Hct MCV MCH MCHC RDW RDW Differential Plt Count MPV Immature Gran % (Auto) Neut % (Auto) Lymph % (Auto) [place] % (Auto) Eos % (Auto) Baso % (Auto) Absolute Neuts (auto) Absolute Lymphs (auto) Total Counted Neutrophils % (Manual) Band Neutrophils % Lymphocytes % (Manual) Monocytes % (Manual) Metamyelocytes % Plasma Cell % (Manual) Nucleated RBCs/100 WBC Diff Path Review Reactive Lymphocytes Platelet Estimate Plt Morphology Comment RBC Morphology PT INR APTT Specimen Type Sample Site pH Bicarbonate Actual POC Total CO2 Base Excess O2 Saturation O2 % ABG pCO2 ABG pO2 [place] Test Respiration Rate O2 Delivery Device Minute Volume Vent Mode Tidal Volume POC PEEP Blood Gas Notified Whom Blood Gas Notified Time Sodium Potassium Chloride Carbon Dioxide Anion Gap BUN Creatinine Estim Creat Clear Calc Est GFR (MDRD) Af Amer Est GFR (MDRD) Non-Af BUN/Creatinine Ratio Glucose Hemoglobin A1c 5.7 Lactic Acid Calcium Phosphorus 2.8 Magnesium 2.0 Total Bilirubin AST ALT Alkaline Phosphatase Troponin I B-Natriuretic Peptide Total Protein Albumin Globulin Albumin/Globulin Ratio TSH 0.52 Free T4 Urine Color Urine Clarity Urine pH Ur Specific [place] Urine Protein Urine Glucose (UA) Urine Ketones Urine Occult Blood Urine Nitrite Urine Bilirubin Urine Urobilinogen Ur Leukocyte Esterase Urine RBC Urine WBC Ur Squamous Epith Cells Ur Transition Epith Cell Ur Renal Epithelial Cell Amorphous Sediment Urine Bacteria Urine Mucus Ur Random Sodium MRSA (PCR) 06/16/18 06/16/18 06/16/18 01:15 03:50 03:50 WBC 16.2 H RBC 5.04 Hgb 14.8 Hct 45.7 MCV 90.7 MCH 29.4 MCHC 32.4 RDW 15.1 H RDW Differential 50.3 H Plt Count 164 MPV 12.1 H Immature Gran % (Auto) Neut % (Auto) Not Reportable Lymph % (Auto) [place] % (Auto) Eos % (Auto) Baso % (Auto) Absolute Neuts (auto) 12.8 H Absolute Lymphs (auto) 2.43 Total Counted 100 Neutrophils % (Manual) 78 H Band Neutrophils % 1 Lymphocytes % (Manual) 15 L Monocytes % (Manual) 4 Metamyelocytes % Plasma Cell % (Manual) 2 Nucleated RBCs/100 WBC Diff Path Review May foll Reactive Lymphocytes 1+ Platelet Estimate ADEQUATE Plt Morphology Comment RBC Morphology PT INR APTT Specimen Type Sample Site pH Bicarbonate Actual POC Total CO2 Base Excess O2 Saturation O2 % ABG pCO2 ABG pO2 [place] Test Respiration Rate O2 Delivery Device Minute Volume Vent Mode Tidal Volume POC PEEP Blood Gas Notified Whom Blood Gas Notified Time Sodium 138 Potassium 4.4 Chloride 102 Carbon Dioxide 20.0 L Anion Gap 16 H BUN 53 H Creatinine 1.77 H Estim Creat Clear Calc 30.65 Est GFR (MDRD) Af Amer 38 L Est GFR (MDRD) Non-Af 32 L BUN/Creatinine Ratio 29.9 H Glucose 195 H Hemoglobin A1c Lactic Acid 1.7 Calcium 7.9 L Phosphorus Magnesium Total Bilirubin 1.10 H AST 546 H ALT 203 H Alkaline Phosphatase 69 Troponin I B-Natriuretic Peptide Total Protein 6.5 Albumin 2.1 L Globulin 4.4 H Albumin/Globulin Ratio 0.5 L TSH Free T4 Urine Color Urine Clarity Urine pH Ur Specific [place] Urine Protein Urine Glucose (UA) Urine Ketones Urine Occult Blood Urine Nitrite Urine Bilirubin Urine Urobilinogen Ur Leukocyte Esterase Urine RBC Urine WBC Ur Squamous Epith Cells Ur Transition Epith Cell Ur Renal Epithelial Cell Amorphous Sediment Urine Bacteria Urine Mucus Ur Random Sodium MRSA (PCR) 06/16/18 06/16/18 06/16/18 03:50 03:50 03:50 WBC RBC Hgb Hct MCV MCH MCHC RDW RDW Differential Plt Count MPV Immature Gran % (Auto) Neut % (Auto) Lymph % (Auto) [place] % (Auto) Eos % (Auto) Baso % (Auto) Absolute Neuts (auto) Absolute Lymphs (auto) Total Counted Neutrophils % (Manual) Band Neutrophils % Lymphocytes % (Manual) Monocytes % (Manual) Metamyelocytes % Plasma Cell % (Manual) Nucleated RBCs/100 WBC Diff Path Review Reactive Lymphocytes Platelet Estimate Plt Morphology Comment RBC Morphology PT 17.7 H INR 1.5 APTT 67.6 H Specimen Type Sample Site pH Bicarbonate Actual POC Total CO2 Base Excess O2 Saturation O2 % ABG pCO2 ABG pO2 [place] Test Respiration Rate O2 Delivery Device Minute Volume Vent Mode Tidal Volume POC PEEP Blood Gas Notified Whom Blood Gas Notified Time Sodium Potassium Chloride Carbon Dioxide Anion Gap BUN Creatinine Estim Creat Clear Calc Est GFR (MDRD) Af Amer Est GFR (MDRD) Non-Af BUN/Creatinine Ratio Glucose Hemoglobin A1c Lactic Acid Calcium Phosphorus 8.5 H Magnesium 2.6 Total Bilirubin AST ALT Alkaline Phosphatase Troponin I 0.037 B-Natriuretic Peptide Total Protein Albumin Globulin Albumin/Globulin Ratio TSH Free T4 Urine Color Urine Clarity Urine pH Ur Specific [place] Urine Protein Urine Glucose (UA) Urine Ketones Urine Occult Blood Urine Nitrite Urine Bilirubin Urine Urobilinogen Ur Leukocyte Esterase Urine RBC Urine WBC Ur Squamous Epith Cells Ur Transition Epith Cell Ur Renal Epithelial Cell Amorphous Sediment Urine Bacteria Urine Mucus Ur Random Sodium MRSA (PCR) 06/16/18 06/16/18 06/16/18 06:45 06:45 06:45 WBC 21.3 H RBC 5.03 Hgb 14.6 Hct 46.0 MCV 91.5 MCH 29.0 MCHC 31.7 L RDW 15.3 H RDW Differential 51.3 H Plt Count 151 MPV 11.8 Immature Gran % (Auto) Neut % (Auto) Not Reportable Lymph % (Auto) [place] % (Auto) Eos % (Auto) Baso % (Auto) Absolute Neuts (auto) 16.0 H Absolute Lymphs (auto) 2.80 Total Counted 100 Neutrophils % (Manual) 71 H Band Neutrophils % 4 Lymphocytes % (Manual) 13 L Monocytes % (Manual) 11 H Metamyelocytes % 1 Plasma Cell % (Manual) Nucleated RBCs/100 WBC 1 Diff Path Review May foll Reactive Lymphocytes RARE Platelet Estimate ADEQUATE Plt Morphology Comment RBC Morphology NORM C+C PT INR APTT 61.5 H Specimen Type Sample Site pH Bicarbonate Actual POC Total CO2 Base Excess O2 Saturation O2 % ABG pCO2 ABG pO2 [place] Test Respiration Rate O2 Delivery Device Minute Volume Vent Mode Tidal Volume POC PEEP Blood Gas Notified Whom Blood Gas Notified Time Sodium 139 Potassium 5.8 H Chloride 103 Carbon Dioxide 21.0 Anion Gap 15 BUN 53 H Creatinine 2.10 H Estim Creat Clear Calc 25.83 Est GFR (MDRD) Af Amer 31 L Est GFR (MDRD) Non-Af 26 L BUN/Creatinine Ratio 25.2 H Glucose 123 H Hemoglobin A1c Lactic Acid Calcium 8.0 L Phosphorus 6.8 H Magnesium 3.1 H Total Bilirubin 2.00 H AST 1922 H ALT 700 H Alkaline Phosphatase 82 Troponin I B-Natriuretic Peptide Total Protein 6.6 Albumin 2.1 L Globulin 4.5 H Albumin/Globulin Ratio 0.5 L TSH Free T4 Urine Color Urine Clarity Urine pH Ur Specific [place] Urine Protein Urine Glucose (UA) Urine Ketones Urine Occult Blood Urine Nitrite Urine Bilirubin Urine Urobilinogen Ur Leukocyte Esterase Urine RBC Urine WBC Ur Squamous Epith Cells Ur Transition Epith Cell Ur Renal Epithelial Cell Amorphous Sediment Urine Bacteria Urine Mucus Ur Random Sodium MRSA (PCR) 06/16/18 06/16/18 06/16/18 06:45 07:04 08:15 WBC RBC Hgb Hct MCV MCH MCHC RDW RDW Differential Plt Count MPV Immature Gran % (Auto) Neut % (Auto) Lymph % (Auto) [place] % (Auto) Eos % (Auto) Baso % (Auto) Absolute Neuts (auto) Absolute Lymphs (auto) Total Counted Neutrophils % (Manual) Band Neutrophils % Lymphocytes % (Manual) Monocytes % (Manual) Metamyelocytes % Plasma Cell % (Manual) Nucleated RBCs/100 WBC Diff Path Review Reactive Lymphocytes Platelet Estimate Plt Morphology Comment RBC Morphology PT INR APTT Specimen Type ANN Sample Site OTHER pH 7.16 L* Bicarbonate Actual 18.5 L POC Total CO2 20 Base Excess -10 L O2 Saturation 93 L O2 % 80 ABG pCO2 52.4 H ABG pO2 86 [place] Test Respiration Rate 12 O2 Delivery Device Vent Minute Volume 15.00 Vent Mode A-C Tidal Volume 450 POC PEEP 5 Blood Gas Notified Whom ICU MD Blood Gas Notified Time 703 Sodium Potassium Chloride Carbon Dioxide Anion Gap BUN Creatinine Estim Creat Clear Calc Est GFR (MDRD) Af Amer Est GFR (MDRD) Non-Af BUN/Creatinine Ratio Glucose Hemoglobin A1c Lactic Acid 4.9 H* Calcium Phosphorus Magnesium Total Bilirubin AST ALT Alkaline Phosphatase Troponin I B-Natriuretic Peptide Total Protein Albumin Globulin Albumin/Globulin Ratio TSH Free T4 1.56 H Urine Color Urine Clarity Urine pH Ur Specific [place] Urine Protein Urine Glucose (UA) Urine Ketones Urine Occult Blood Urine Nitrite Urine Bilirubin Urine Urobilinogen Ur Leukocyte Esterase Urine RBC Urine WBC Ur Squamous Epith Cells Ur Transition Epith Cell Ur Renal Epithelial Cell Amorphous Sediment Urine Bacteria Urine Mucus Ur Random Sodium MRSA (PCR) 06/16/18 06/16/18 06/16/18 08:25 08:25 09:10 WBC RBC Hgb Hct MCV MCH MCHC RDW RDW Differential Plt Count MPV Immature Gran % (Auto) Neut % (Auto) Lymph % (Auto) [place] % (Auto) Eos % (Auto) Baso % (Auto) Absolute Neuts (auto) Absolute Lymphs (auto) Total Counted Neutrophils % (Manual) Band Neutrophils % Lymphocytes % (Manual) Monocytes % (Manual) Metamyelocytes % Plasma Cell % (Manual) Nucleated RBCs/100 WBC Diff Path Review Reactive Lymphocytes Platelet Estimate Plt Morphology Comment RBC Morphology PT 35.6 H INR 3.5 H* APTT Specimen Type Sample Site pH Bicarbonate Actual POC Total CO2 Base Excess O2 Saturation O2 % ABG pCO2 ABG pO2 [place] Test Respiration Rate O2 Delivery Device Minute Volume Vent Mode Tidal Volume POC PEEP Blood Gas Notified Whom Blood Gas Notified Time Sodium Potassium Chloride Carbon Dioxide Anion Gap BUN Creatinine Estim Creat Clear Calc Est GFR (MDRD) Af Amer Est GFR (MDRD) Non-Af BUN/Creatinine Ratio Glucose Hemoglobin A1c Lactic Acid Calcium Phosphorus Magnesium Total Bilirubin AST ALT Alkaline Phosphatase Troponin I 0.101 H B-Natriuretic Peptide Total Protein Albumin Globulin Albumin/Globulin Ratio TSH Free T4 Urine Color Urine Clarity Urine pH Ur Specific [place] Urine Protein Urine Glucose (UA) Urine Ketones Urine Occult Blood Urine Nitrite Urine Bilirubin Urine Urobilinogen Ur Leukocyte Esterase Urine RBC Urine WBC Ur Squamous Epith Cells Ur Transition Epith Cell Ur Renal Epithelial Cell Amorphous Sediment Urine Bacteria Urine Mucus Ur Random Sodium MRSA (PCR) Negative 06/16/18 06/16/18 06/16/18 11:15 11:15 11:15 WBC 17.4 H RBC 4.74 Hgb 13.7 Hct 42.8 MCV 90.3 MCH 28.9 MCHC 32.0 RDW 15.3 H RDW Differential 50.6 H Plt Count 104 L MPV 11.5 Immature Gran % (Auto) Neut % (Auto) Lymph % (Auto) [place] % (Auto) Eos % (Auto) Baso % (Auto) Absolute Neuts (auto) Absolute Lymphs (auto) Total Counted Neutrophils % (Manual) Band Neutrophils % Lymphocytes % (Manual) Monocytes % (Manual) Metamyelocytes % Plasma Cell % (Manual) Nucleated RBCs/100 WBC Diff Path Review Reactive Lymphocytes Platelet Estimate Plt Morphology Comment RBC Morphology PT INR APTT Specimen Type Sample Site pH Bicarbonate Actual POC Total CO2 Base Excess O2 Saturation O2 % ABG pCO2 ABG pO2 [place] Test Respiration Rate O2 Delivery Device Minute Volume Vent Mode Tidal Volume POC PEEP Blood Gas Notified Whom Blood Gas Notified Time Sodium 139 Potassium 4.9 Chloride 105 Carbon Dioxide 22.0 Anion Gap 12 BUN 55 H Creatinine 2.18 H Estim Creat Clear Calc 24.88 Est GFR (MDRD) Af Amer 30 L Est GFR (MDRD) Non-Af 25 L BUN/Creatinine Ratio 25.2 H Glucose 167 H Hemoglobin A1c Lactic Acid Calcium 6.6 L Phosphorus Magnesium Total Bilirubin AST ALT Alkaline Phosphatase Troponin I B-Natriuretic Peptide Total Protein Albumin Globulin Albumin/Globulin Ratio TSH Free T4 Urine Color Yellow Urine Clarity Cloudy Urine pH 6.0 Ur Specific [place] 1.015 Urine Protein 500 H Urine Glucose (UA) 100 H Urine Ketones 5 H Urine Occult Blood 250 H Urine Nitrite Negative Urine Bilirubin Negative Urine Urobilinogen Normal Ur Leukocyte Esterase 25 H Urine RBC 5-10 SEEN Urine WBC 0-5 SEEN Ur Squamous Epith Cells 0 SEEN Ur Transition Epith Cell 0-5 SEEN Ur Renal Epithelial Cell 0-5 SEEN Amorphous Sediment 1+ Urine Bacteria 2+ Urine Mucus 1+ Ur Random Sodium MRSA (PCR) 06/16/18 11:15 WBC RBC Hgb Hct MCV MCH MCHC RDW RDW Differential Plt Count MPV Immature Gran % (Auto) Neut % (Auto) Lymph % (Auto) [place] % (Auto) Eos % (Auto) Baso % (Auto) Absolute Neuts (auto) Absolute Lymphs (auto) Total Counted Neutrophils % (Manual) Band Neutrophils % Lymphocytes % (Manual) Monocytes % (Manual) Metamyelocytes % Plasma Cell % (Manual) Nucleated RBCs/100 WBC Diff Path Review Reactive Lymphocytes Platelet Estimate Plt Morphology Comment RBC Morphology PT INR APTT Specimen Type Sample Site pH Bicarbonate Actual POC Total CO2 Base Excess O2 Saturation O2 % ABG pCO2 ABG pO2 [place] Test Respiration Rate O2 Delivery Device Minute Volume Vent Mode Tidal Volume POC PEEP Blood Gas Notified Whom Blood Gas Notified Time Sodium Potassium Chloride Carbon Dioxide Anion Gap BUN Creatinine Estim Creat Clear Calc Est GFR (MDRD) Af Amer Est GFR (MDRD) Non-Af BUN/Creatinine Ratio Glucose Hemoglobin A1c Lactic Acid Calcium Phosphorus Magnesium Total Bilirubin AST ALT Alkaline Phosphatase Troponin I B-Natriuretic Peptide Total Protein Albumin Globulin Albumin/Globulin Ratio TSH Free T4 Urine Color Urine Clarity Urine pH Ur Specific [place] Urine Protein Urine Glucose (UA) Urine Ketones Urine Occult Blood Urine Nitrite Urine Bilirubin Urine Urobilinogen Ur Leukocyte Esterase Urine RBC Urine WBC Ur Squamous Epith Cells Ur Transition Epith Cell Ur Renal Epithelial Cell Amorphous Sediment Urine Bacteria Urine Mucus Ur Random Sodium 74 MRSA (PCR) POC Glucose 06/16/18 11:43 POC Glucose 204 H Assessment/Plan All Active Problems Severe sepsis (Acute) Acute respiratory failure with hypoxia (Acute) Pneumonia (Acute) Atrial fibrillation with RVR (Acute) LYNNETTE (acute kidney injury) (Acute) 1-acute kidney injury. Most probably related to ischemic ATN following CODE BLUE. Creatinine is rising. Last creatinine 2.8 this morning. Patient is anuric. No hyperkalemia, no acidosis, no fluid overload. No indication for hemodialysis today. I will reevaluate the patient for hemodialysis tomorrow. Please keep mean arterial pressure more than 65. Avoid nephrotoxic. I will order UA along with urine indices. 2-acute respiratory failure following CODE BLUE currently on vent support as per the voip network engineer. 3-bilateral pneumonia. On antibiotics please dose antibiotics as per the current GFR 4-A. fib with RVR. Patient needed Cardizem drip now back to sinus rhythm. Thank you for the consult. Renal team will continue to follow. Please call with any question or concern Aaliyah Muñzo MD [phone]
--- NOTE | 2018-06-16 16:49 | NURSING ---
Teaching of pt chronic medical conditions deferred until pt condition less critical
--- NOTE | 2018-06-16 17:10 | NURSING ---
Attempted to call pt's brother, Ezequiel, to give update/obtain consent for medical records request. He did not answer, voicemail not set up.
--- NOTE | 2018-06-16 17:32 | NURSING ---
Ezequiel (who is reportedly POA) returned phone call. Gave consent for medical records request. Updated him on pt current condition i.e. able to weaned off of BP support medications, alert and answering questions, still on ventilator but doing much better than this morning. Also informed him that she tested positive for the flu and to be aware of that for other family members that may have been around her if they are feeling ill. He verbalizes understanding to all information. He also states he will be present for rounds at 9:00 am with his significant other.
[2018-06-16 18:17] LABS: Absolute Lymphocyte Count 2.07 X10^3/ul (0.83-4.51); Absolute Neutrophil Count 14.1 X10^3/uL (2.0-7.7); Absolute Nucleated RBC Count 0.05 10^3/uL (0-5); Basophil# 0.22 X10^3/uL; Basophil% 1.3 % (0-1); Differential Indicated SCAN CRITERIA MET; Hematocrit 44.7 % (37-47); Hemoglobin 14.6 g/dl (12.0-15.0); Lymphocyte # 2.07 X10^3/ul (4.0); Lymphocyte % 11.8 % (19-41); Mean Corp Hgb Conc 32.7 g/gl (32-36); Mean Corpuscular Hgb 28.8 pg (27.0-32.0); Mean Corpuscular Volume 88.2 fL (81-99); Mean Platelet Vol. 11.7 fl (6.2-12.0); Monocyte# 0.77 X10^3/uL; Monocyte% 4.4 % (0-10); NRBC Flagged by Analyzer 0.3 % (0-5); Neutrophil # 14.09 X10^3/uL (2.7-7.7); Neutrophil % 80.6 % (47-70); POSITIVE COUNT NO; POSITIVE DIFFERENTIAL NO; POSITIVE MORPHOLOGY YES; Platelet Count 143 K/mm3 (150-450); RBC Distribution Width CV 15.2 % (11.6-14.6); RBC Distribution Width SD 48.8 fl (35.1-43.9); Red Blood Count 5.07 M/mm3 (4.2-5.4); White Blood Count 17.5 K/mm3 (4.4-11.0)
[2018-06-16 18:24] LABS: Urine Sodium 16 mmol/L (Not Establ.)
[2018-06-16 18:29] LABS: Fibrinogen 621 mg/dl (203-444)
[2018-06-16 18:32] LABS: International Normalized Ratio 2.3; Prothrombin Time (Protime)PT. 25.5 SECONDS (11.7-14.9)
[2018-06-16 18:34] LABS: Partial Thromboplast Time 40.9 Seconds (24.1-36.2)
[2018-06-16] MEDS: Heparin Injection (Vial) 5,000 UNIT/ML VIAL IV (18:42)
[2018-06-16 18:57] LABS: BUN 62 mg/dL (7-18); Creatinine, Serum 2.47 mg/dL (0.55-1.02); EST Glomerular Filtration Rate 22 mL/min (>60); Estimated Creatinine Clearance 21.96 ml/min; Glucose 154 mg/dL (74-106)
[2018-06-16 18:58] LABS: ALB/GLOB Ratio 0.5 RATIO (0.9-2.4); AST(SGOT) 14394 U/L (15-37); Alanine Aminotransfer ALT/SGPT 3831 U/L (13-56); Alkaline Phosphatase 79 U/L (45-117); Anion Gap 14 (5-15); BUN/Creat Ratio 25.1 RATIO (10-20); Calcium,Total 6.9 mg/dL (8.5-10.1); Chloride 106 mmol/L (98-107); Est Glom Filt Rate - Afr Amer 26 mL/min (>60); Globulin 3.9 g/dL (2.2-4.2); Protein, Total 5.9 g/dL (6.4-8.2); Sodium Level 139 mmol/L (136-145)
[2018-06-16] MEDS: Oseltamivir Phosphate 30 MG Capsule PO (19:48)
[2018-06-16 20:31] LABS: Atypical Lymphocyte RARE %; Differential Comment SCANNED; Reactive Lymphocyte RARE
[2018-06-16 20:32] LABS: Platelet Estimate SLT DEC (ADEQ)
[2018-06-17] VITALS (37 sets, daily range): BP systolic 94–135; BP diastolic 56–104; PULSE 77–99; RESP 12–42; TEMP 36.6–39.2; O2SAT 90–97
--- NOTE | 2018-06-17 05:15 | CPS ---
spontaneous breathing trial attempted, pt had increased respirations RR 40-50 on trial, and pt desaturated into the mid 80's. Pt returned to AC VC settings, Ezio SHAFFER aware.
[2018-06-17 05:26] LABS: International Normalized Ratio 1.9; Prothrombin Time (Protime)PT. 21.7 SECONDS (11.7-14.9)
[2018-06-17 05:34] LABS: Hematocrit 40.2 % (37-47); Hemoglobin 13.4 g/dl (12.0-15.0); Mean Corp Hgb Conc 33.3 g/gl (32-36); Mean Corpuscular Hgb 29.1 pg (27.0-32.0); Mean Corpuscular Volume 87.4 fL (81-99); Mean Platelet Vol. 12.2 fl (6.2-12.0); Platelet Count 178 K/mm3 (150-450); RBC Distribution Width CV 15.2 % (11.6-14.6); RBC Distribution Width SD 48.3 fl (35.1-43.9); White Blood Count 14.3 K/mm3 (4.4-11.0)
[2018-06-17 05:35] LABS: Differential Indicated MANUAL DIFF; POSITIVE COUNT YES; POSITIVE DIFFERENTIAL NO; POSITIVE MORPHOLOGY YES
[2018-06-17 05:57] LABS: BUN 74 mg/dL (7-18); Glucose 76 mg/dL (74-106)
[2018-06-17 05:58] LABS: ALB/GLOB Ratio 0.5 RATIO (0.9-2.4); AST(SGOT) 9605 U/L (15-37); Alanine Aminotransfer ALT/SGPT 3500 U/L (13-56); Albumin, Serum 1.9 g/dL (3.2-5.0); Alkaline Phosphatase 84 U/L (45-117); Anion Gap 14 (5-15); BUN/Creat Ratio 23.9 RATIO (10-20); Chloride 105 mmol/L (98-107); EST Glomerular Filtration Rate 17 mL/min (>60); Est Glom Filt Rate - Afr Amer 20 mL/min (>60); Globulin 3.7 g/dL (2.2-4.2); Magnesium 2.4 mg/dL (1.6-2.6); Phosphorus 5.8 mg/dL (2.5-4.9); Protein, Total 5.6 g/dL (6.4-8.2); Sodium Level 140 mmol/L (136-145)
[2018-06-17] MEDS: Ipratropium/Albuterol Sulfate 3 ML AMPUL.NEB INHALATION ×4 (06:33→18:34)
[2018-06-17 07:18] LABS: Lymphocyte 8 % (19-41); Metamyelocyte 1 % (0-1); Monocyte 2 % (0-10); Neutrophil-Band 2 % (0-5); Neutrophil-Segmented 87 % (47-70); Total Cells Counted 100 (MANUAL DIFF)
[2018-06-17 07:19] LABS: Platelet Estimate ADEQUATE (ADEQ); Red Cell Morphology NORM C+C NORMAL (NORM C&C)
[2018-06-17 07:20] LABS: Absolute Lymphocyte Count 1.14 X10^3/ul (0.83-4.51); Absolute Neutrophil Count 12.7 X10^3/uL (2.0-7.7)
--- NOTE | 2018-06-17 07:29 | PN.CARD_ITS ---
Subjectve: Patient seen and evaluated. Still intubated. Appears to be on less pressor agents than yesterday Objective: Vital Signs Temp Pulse Resp BP Pulse Ox 97.8 F 84 35 H 111/64 93 06/17/18 04:00 06/17/18 06:00 06/17/18 06:00 06/17/18 06:00 06/17/18 06:00 Oxygen Flow Rate (L/min) 60 Oxygen Delivery Method Mechanical Ventilator Weight: 253 lb 4.978 oz Body Mass Index (BMI) 40.4 Intake and Output for Last 24 Hours 06/15/18 06/16/18 06/17/18 23:59 23:59 23:59 Intake Total 8180.6 / 8180.6 204 / 204 Output Total 245 / 245 40 / 40 Balance 7935.6 / 7935.6 164 / 164 General: Ill Appearing, Non-Cooperative, - - Intubated HEENT: PERRL, EOMI, Sclera Non Icteric Neck: Supple, Good ROM, No Lymph Node Enlargement Lungs: Clear to auscultation Cardiovascular: Regular Rhythm, Normal S1, Normal S2, No Murmurs, No Rubs, No Gallops Vascular: No Carotid Bruits, Normal Femoral Pulses, Normal Radial Pulses, Normal Dorsalis Pedal Pulse, Normal Posterior Tibial Pulses Abdomen: Bowel Sounds Present, Soft, Non Tender, No HSM, No Organomegaly Extremities: No Cyanosis, No Clubbing, No edema Neurological: No Focal Motor or Sensory Deficit 06/16/18 03:50: PT 17.7 H, INR 1.5 06/16/18 06:45: Absolute Neuts (auto) 16.0 H, Total Counted 100, Neutrophils % (Manual) 71 H, Band Neutrophils % 4, Lymphocytes % (Manual) 13 L, Monocytes % (Manual) 11 H, Metamyelocytes % 1 06/16/18 06:45: APTT 61.5 H 06/16/18 08:15: Lactic Acid 4.9 H* 06/16/18 08:25: Troponin I 0.101 H 06/16/18 08:25: PT 35.6 H, INR 3.5 H* 06/16/18 11:15: WBC 17.4 H, RBC 4.74, Hgb 13.7, Hct 42.8, MCV 90.3, MCH 28.9, MCHC 32.0, RDW 15.3 H, RDW Differential 50.6 H, Plt Count 104 L, MPV 11.5 06/16/18 11:15: Sodium 139, Potassium 4.9, Chloride 105, Carbon Dioxide 22.0, Anion Gap 12, BUN 55 H, Creatinine 2.18 H, Est GFR (MDRD) Af Amer 30 L, Est GFR (MDRD) Non-Af 25 L, BUN/Creatinine Ratio 25.2 H, Glucose 167 H, Calcium 6.6 L 06/16/18 11:15: Urine Color Yellow, Urine Clarity Cloudy, Urine pH 6.0, Ur Specific [place] 1.015, Urine Protein 500 H, Urine Glucose (UA) 100 H, Urine Ketones 5 H, Urine Occult Blood 250 H, Urine Nitrite Negative, Urine Bilirubin Negative, Urine Urobilinogen Normal, Ur Leukocyte Esterase 25 H, Urine RBC 5-10 SEEN, Urine WBC 0-5 SEEN 06/16/18 17:55: APTT 40.9 H 06/16/18 17:55: WBC 17.5 H, RBC 5.07, Hgb 14.6, Hct 44.7, MCV 88.2, MCH 28.8, MCHC 32.7, RDW 15.2 H, RDW Differential 48.8 H, Plt Count 143 L, MPV 11.7, Immature Gran % (Auto) 1.900 H, Neut % (Auto) 80.6 H, Lymph % (Auto) 11.8 L, [place] % (Auto) 4.4, Eos % (Auto) 0.0, Baso % (Auto) 1.3 H, Absolute Neuts (auto) 14.1 H, Total Counted Not Reportable, Nucleated RBC % 0.3 06/16/18 17:55: PT 25.5 H, INR 2.3 06/16/18 17:55: Sodium 139, Potassium 4.0, Chloride 106, Carbon Dioxide 19.0 L, Anion Gap 14, BUN 62 H, Creatinine 2.47 H, Est GFR (MDRD) Af Amer 26 L, Est GFR (MDRD) Non-Af 22 L, BUN/Creatinine Ratio 25.1 H, Glucose 154 H, Calcium 6.9 L, Total Bilirubin 1.90 H 06/16/18 17:55: Troponin I 0.175 H 06/17/18 04:45: WBC 14.3 H, RBC 4.60, Hgb 13.4, Hct 40.2, MCV 87.4, MCH 29.1, MCHC 33.3, RDW 15.2 H, RDW Differential 48.3 H, Plt Count 178, MPV 12.2 H, Neut % (Auto) Not Reportable, Absolute Neuts (auto) 12.7 H, Total Counted 100, Neutrophils % (Manual) 87 H, Band Neutrophils % 2, Lymphocytes % (Manual) 8 L, Monocytes % (Manual) 2, Metamyelocytes % 1 06/17/18 04:45: PT 21.7 H, INR 1.9 06/17/18 04:45: Sodium 140, Potassium 4.0, Chloride 105, Carbon Dioxide 21.0, Anion Gap 14, BUN 74 H, Creatinine 3.10 H, Est GFR (MDRD) Af Amer 20 L, Est GFR (MDRD) Non-Af 17 L, BUN/Creatinine Ratio 23.9 H, Glucose 76, Calcium 7.0 L, Phosphorus 5.8 H, Magnesium 2.4, Total Bilirubin 2.20 H Rhythm: EKG: ECHO: Stress Test: Cardiac Cath: PCI: CT Surgery: Holter monitor: EPS: PPM: CXR: Chest CT Scan: Medical Necessity - Tobacco Use Smoking Status: Current every day smoker - Patient notes that she is currently smoking 2-3 cigarettes/day. Tobacco Use: Cigarettes Assessment/Plan 1. Atrial fibrillation * Patient presented with atrial fibrillation likely secondary to her lung condi tion. With her pneumonia. The above appears to have been transient and currently patient is maintaining sinus rhythm. * Will obtain an echocardiogram today to assess left ventricular function. * I do not think that long-term anticoagulation is warranted at this time. * 2. Cardiopulmonary arrest * I suspect the above is on the basis of severe hypoxia as well as the bradycardia arrhythmia secondary to the beta-moris that the patient was receiving. * That appears to have resolved and currently patient is on supportive management with three-vasoactive agents. We will try and titrate to maintain a mean arterial pressure of 65 mmHg. 3. Lung consolidation * I suspect the above is on the basis of an infection and not a pulmonary embolism with pulmonary infarction. * * 4. Abnormal cardiac enzymes * Above is likely secondary to demand ischemia. * 5. Acute renal insufficiency * The above is likely secondary to her septic state, hypotension and poor perfusion likely on an underlying baseline renal dysfunction. * Above discussed with hospitalist and medicinal plant picker. * We will continue to follow with you. * *
--- NOTE | 2018-06-17 08:30 | PN_ITS ---
Subjective: Yesterday's events were reviewed. Patient is much improved overnight and has been taken off of all pressor agents as of this morning. Patient was placed on a spontaneous breathing trial, but became severely tachypneic and hypoxemic. Patient has yet to be initiated on tube feeds, but no significant secretions have been reported. General: - - RASS -1. Morbidly obese. Good vent synchrony noted. HEENT: Atraumatic, PERRLA, EOMI, Normocephalic, - - No scleral icterus or injection noted. Oral: Moist Mucosa, No Gingival or Mucosal Lesions/ Ulcerations Neck: Supple, No JVD, No Nodes, Trachea Midline Lungs: Diminished, Wheezes Cardiovascular: Regular rate, Normal S1, Normal S2, No murmurs, Irregular Rate, No rub noted, No Gallop, - - Occasional PACs noted on telemetry. Abdomen: Bowel Sounds Present, Soft, Non Tender, Non-Distended, Obese Extremities: No clubbing, No cyanosis, Capillary Refill Less than 3 Seconds, Edema - Trace lower extremity Skin: No rashes, No breakdown, - - All lines appear to be clean, dry and intact. Musculoskeletal: No Tenderness to Palpation of Joints or Extremities Lymphatic: No Cervical, Supraclavicular, or Inguinal Adenopathy Neurological: Cranial nerves II-XII grossly intact, Neuro grossly intact Psych/Mental Status: Flat Affect Vital Signs Temp Pulse Resp BP Pulse Ox 36.6 C 84 36 H 94/68 92 06/17/18 04:00 06/17/18 07:00 06/17/18 07:00 06/17/18 07:00 06/17/18 07:00 Oxygen Flow Rate (L/min) 60 Oxygen Delivery Method Mechanical Ventilator Weight: 114.9 kg Body Mass Index (BMI) 40.4 Intake and Output for Last 24 Hours 06/15/18 06/16/18 06/17/18 23:59 23:59 23:59 Intake Total 8180.6 / 8180.6 204 / 204 Output Total 245 / 245 40 / 40 Balance 7935.6 / 7935.6 164 / 164 Labs (Last 48 Hours) 06/15/18 06/15/18 06/15/18 20:15 20:31 20:31 WBC 14.0 H RBC 5.72 H Hgb 16.8 H Hct 49.7 H MCV 86.9 MCH 29.4 MCHC 33.8 RDW 14.8 H RDW Differential 47.0 H Plt Count 190 MPV 12.0 Immature Gran % (Auto) 0.400 Neut % (Auto) 85.7 H Lymph % (Auto) 9.5 L [place] % (Auto) 4.1 Eos % (Auto) 0.0 Baso % (Auto) 0.3 Absolute Neuts (auto) 12.0 H Absolute Lymphs (auto) 1.34 Total Counted Not Reportable Neutrophils % (Manual) Band Neutrophils % Lymphocytes % (Manual) Monocytes % (Manual) Metamyelocytes % Plasma Cell % (Manual) Nucleated RBC % Nucleated RBCs/100 WBC Differential Comment Diff Path Review Atypical Lymphocytes Reactive Lymphocytes Platelet Estimate ADEQUATE Plt Morphology Comment LARGE RBC Morphology NORM C+C Absolute Retic PT INR APTT 31.3 Fibrinogen Specimen Type Sample Site pH Bicarbonate Actual POC Total CO2 Base Excess O2 Saturation O2 % ABG pCO2 ABG pO2 [place] Test Respiration Rate O2 Delivery Device Minute Volume Vent Mode Tidal Volume POC PEEP Blood Gas Notified Whom Blood Gas Notified Time Sodium 135 L Potassium 3.4 L Chloride 98 Carbon Dioxide 22.0 Anion Gap 15 BUN 57 H Creatinine 1.85 H Estim Creat Clear Calc 29.32 Est GFR (MDRD) Af Amer 36 L Est GFR (MDRD) Non-Af 30 L BUN/Creatinine Ratio 30.8 H Glucose 144 H Hemoglobin A1c Lactic Acid Calcium 8.8 Phosphorus Magnesium Total Bilirubin AST ALT Alkaline Phosphatase Troponin I < 0.015 B-Natriuretic Peptide Total Protein Albumin Globulin Albumin/Globulin Ratio TSH Free T4 Urine Color Urine Clarity Urine pH Ur Specific [place] Urine Protein Urine Glucose (UA) Urine Ketones Urine Occult Blood Urine Nitrite Urine Bilirubin Urine Urobilinogen Ur Leukocyte Esterase Urine RBC Urine WBC Ur Squamous Epith Cells Ur Transition Epith Cell Ur Renal Epithelial Cell Amorphous Sediment Urine Bacteria Urine Mucus Ur Random Sodium Urine Creatinine MRSA (PCR) POC Glucose 06/15/18 06/15/18 06/15/18 20:31 20:50 22:58 WBC RBC Hgb Hct MCV MCH MCHC RDW RDW Differential Plt Count MPV Immature Gran % (Auto) Neut % (Auto) Lymph % (Auto) [place] % (Auto) Eos % (Auto) Baso % (Auto) Absolute Neuts (auto) Absolute Lymphs (auto) Total Counted Neutrophils % (Manual) Band Neutrophils % Lymphocytes % (Manual) Monocytes % (Manual) Metamyelocytes % Plasma Cell % (Manual) Nucleated RBC % Nucleated RBCs/100 WBC Differential Comment Diff Path Review Atypical Lymphocytes Reactive Lymphocytes Platelet Estimate Plt Morphology Comment RBC Morphology Absolute Retic PT INR APTT Fibrinogen Specimen Type ART Sample Site L Radial pH 7.40 Bicarbonate Actual 22.3 POC Total CO2 23 Base Excess -3 L O2 Saturation 94 L O2 % 50 ABG pCO2 36.0 ABG pO2 69 L [place] Test POS Respiration Rate O2 Delivery Device Vent Mask Minute Volume Vent Mode Tidal Volume POC PEEP Blood Gas Notified Whom [facility] Blood Gas Notified Time 2250 Sodium Potassium Chloride Carbon Dioxide Anion Gap BUN Creatinine Estim Creat Clear Calc Est GFR (MDRD) Af Amer Est GFR (MDRD) Non-Af BUN/Creatinine Ratio Glucose Hemoglobin A1c Lactic Acid 3.8 H Calcium Phosphorus Magnesium Total Bilirubin AST ALT Alkaline Phosphatase Troponin I B-Natriuretic Peptide 159.1 H Total Protein Albumin Globulin Albumin/Globulin Ratio TSH Free T4 Urine Color Urine Clarity Urine pH Ur Specific [place] Urine Protein Urine Glucose (UA) Urine Ketones Urine Occult Blood Urine Nitrite Urine Bilirubin Urine Urobilinogen Ur Leukocyte Esterase Urine RBC Urine WBC Ur Squamous Epith Cells Ur Transition Epith Cell Ur Renal Epithelial Cell Amorphous Sediment Urine Bacteria Urine Mucus Ur Random Sodium Urine Creatinine MRSA (PCR) POC Glucose 06/15/18 06/15/18 06/15/18 23:16 23:16 23:16 WBC RBC Hgb Hct MCV MCH MCHC RDW RDW Differential Plt Count MPV Immature Gran % (Auto) Neut % (Auto) Lymph % (Auto) [place] % (Auto) Eos % (Auto) Baso % (Auto) Absolute Neuts (auto) Absolute Lymphs (auto) Total Counted Neutrophils % (Manual) Band Neutrophils % Lymphocytes % (Manual) Monocytes % (Manual) Metamyelocytes % Plasma Cell % (Manual) Nucleated RBC % Nucleated RBCs/100 WBC Differential Comment Diff Path Review Atypical Lymphocytes Reactive Lymphocytes Platelet Estimate Plt Morphology Comment RBC Morphology Absolute Retic PT INR APTT Fibrinogen Specimen Type Sample Site pH Bicarbonate Actual POC Total CO2 Base Excess O2 Saturation O2 % ABG pCO2 ABG pO2 [place] Test Respiration Rate O2 Delivery Device Minute Volume Vent Mode Tidal Volume POC PEEP Blood Gas Notified Whom Blood Gas Notified Time Sodium Potassium Chloride Carbon Dioxide Anion Gap BUN Creatinine Estim Creat Clear Calc Est GFR (MDRD) Af Amer Est GFR (MDRD) Non-Af BUN/Creatinine Ratio Glucose Hemoglobin A1c 5.7 Lactic Acid Calcium Phosphorus 2.8 Magnesium 2.0 Total Bilirubin AST ALT Alkaline Phosphatase Troponin I B-Natriuretic Peptide Total Protein Albumin Globulin Albumin/Globulin Ratio TSH 0.52 Free T4 Urine Color Urine Clarity Urine pH Ur Specific [place] Urine Protein Urine Glucose (UA) Urine Ketones Urine Occult Blood Urine Nitrite Urine Bilirubin Urine Urobilinogen Ur Leukocyte Esterase Urine RBC Urine WBC Ur Squamous Epith Cells Ur Transition Epith Cell Ur Renal Epithelial Cell Amorphous Sediment Urine Bacteria Urine Mucus Ur Random Sodium Urine Creatinine MRSA (PCR) POC Glucose 06/16/18 06/16/18 06/16/18 01:15 03:50 03:50 WBC 16.2 H RBC 5.04 Hgb 14.8 Hct 45.7 MCV 90.7 MCH 29.4 MCHC 32.4 RDW 15.1 H RDW Differential 50.3 H Plt Count 164 MPV 12.1 H Immature Gran % (Auto) Neut % (Auto) Not Reportable Lymph % (Auto) [place] % (Auto) Eos % (Auto) Baso % (Auto) Absolute Neuts (auto) 12.8 H Absolute Lymphs (auto) 2.43 Total Counted 100 Neutrophils % (Manual) 78 H Band Neutrophils % 1 Lymphocytes % (Manual) 15 L Monocytes % (Manual) 4 Metamyelocytes % Plasma Cell % (Manual) 2 Nucleated RBC % Nucleated RBCs/100 WBC Differential Comment Diff Path Review May foll Atypical Lymphocytes Reactive Lymphocytes 1+ Platelet Estimate ADEQUATE Plt Morphology Comment RBC Morphology Absolute Retic PT INR APTT Fibrinogen Specimen Type Sample Site pH Bicarbonate Actual POC Total CO2 Base Excess O2 Saturation O2 % ABG pCO2 ABG pO2 [place] Test Respiration Rate O2 Delivery Device Minute Volume Vent Mode Tidal Volume POC PEEP Blood Gas Notified Whom Blood Gas Notified Time Sodium 138 Potassium 4.4 Chloride 102 Carbon Dioxide 20.0 L Anion Gap 16 H BUN 53 H Creatinine 1.77 H Estim Creat Clear Calc 30.65 Est GFR (MDRD) Af Amer 38 L Est GFR (MDRD) Non-Af 32 L BUN/Creatinine Ratio 29.9 H Glucose 195 H Hemoglobin A1c Lactic Acid 1.7 Calcium 7.9 L Phosphorus Magnesium Total Bilirubin 1.10 H AST 546 H ALT 203 H Alkaline Phosphatase 69 Troponin I B-Natriuretic Peptide Total Protein 6.5 Albumin 2.1 L Globulin 4.4 H Albumin/Globulin Ratio 0.5 L TSH Free T4 Urine Color Urine Clarity Urine pH Ur Specific [place] Urine Protein Urine Glucose (UA) Urine Ketones Urine Occult Blood Urine Nitrite Urine Bilirubin Urine Urobilinogen Ur Leukocyte Esterase Urine RBC Urine WBC Ur Squamous Epith Cells Ur Transition Epith Cell Ur Renal Epithelial Cell Amorphous Sediment Urine Bacteria Urine Mucus Ur Random Sodium Urine Creatinine MRSA (PCR) POC Glucose 06/16/18 06/16/18 06/16/18 03:50 03:50 03:50 WBC RBC Hgb Hct MCV MCH MCHC RDW RDW Differential Plt Count MPV Immature Gran % (Auto) Neut % (Auto) Lymph % (Auto) [place] % (Auto) Eos % (Auto) Baso % (Auto) Absolute Neuts (auto) Absolute Lymphs (auto) Total Counted Neutrophils % (Manual) Band Neutrophils % Lymphocytes % (Manual) Monocytes % (Manual) Metamyelocytes % Plasma Cell % (Manual) Nucleated RBC % Nucleated RBCs/100 WBC Differential Comment Diff Path Review Atypical Lymphocytes Reactive Lymphocytes Platelet Estimate Plt Morphology Comment RBC Morphology Absolute Retic PT 17.7 H INR 1.5 APTT 67.6 H Fibrinogen Specimen Type Sample Site pH Bicarbonate Actual POC Total CO2 Base Excess O2 Saturation O2 % ABG pCO2 ABG pO2 [place] Test Respiration Rate O2 Delivery Device Minute Volume Vent Mode Tidal Volume POC PEEP Blood Gas Notified Whom Blood Gas Notified Time Sodium Potassium Chloride Carbon Dioxide Anion Gap BUN Creatinine Estim Creat Clear Calc Est GFR (MDRD) Af Amer Est GFR (MDRD) Non-Af BUN/Creatinine Ratio Glucose Hemoglobin A1c Lactic Acid Calcium Phosphorus 8.5 H Magnesium 2.6 Total Bilirubin AST ALT Alkaline Phosphatase Troponin I 0.037 B-Natriuretic Peptide Total Protein Albumin Globulin Albumin/Globulin Ratio TSH Free T4 Urine Color Urine Clarity Urine pH Ur Specific [place] Urine Protein Urine Glucose (UA) Urine Ketones Urine Occult Blood Urine Nitrite Urine Bilirubin Urine Urobilinogen Ur Leukocyte Esterase Urine RBC Urine WBC Ur Squamous Epith Cells Ur Transition Epith Cell Ur Renal Epithelial Cell Amorphous Sediment Urine Bacteria Urine Mucus Ur Random Sodium Urine Creatinine MRSA (PCR) POC Glucose 06/16/18 06/16/18 06/16/18 06:45 06:45 06:45 WBC 21.3 H RBC 5.03 Hgb 14.6 Hct 46.0 MCV 91.5 MCH 29.0 MCHC 31.7 L RDW 15.3 H RDW Differential 51.3 H Plt Count 151 MPV 11.8 Immature Gran % (Auto) Neut % (Auto) Not Reportable Lymph % (Auto) [place] % (Auto) Eos % (Auto) Baso % (Auto) Absolute Neuts (auto) 16.0 H Absolute Lymphs (auto) 2.80 Total Counted 100 Neutrophils % (Manual) 71 H Band Neutrophils % 4 Lymphocytes % (Manual) 13 L Monocytes % (Manual) 11 H Metamyelocytes % 1 Plasma Cell % (Manual) Nucleated RBC % Nucleated RBCs/100 WBC 1 Differential Comment Diff Path Review May foll Atypical Lymphocytes Reactive Lymphocytes RARE Platelet Estimate ADEQUATE Plt Morphology Comment RBC Morphology NORM C+C Absolute Retic PT INR APTT 61.5 H Fibrinogen Specimen Type Sample Site pH Bicarbonate Actual POC Total CO2 Base Excess O2 Saturation O2 % ABG pCO2 ABG pO2 [place] Test Respiration Rate O2 Delivery Device Minute Volume Vent Mode Tidal Volume POC PEEP Blood Gas Notified Whom Blood Gas Notified Time Sodium 139 Potassium 5.8 H Chloride 103 Carbon Dioxide 21.0 Anion Gap 15 BUN 53 H Creatinine 2.10 H Estim Creat Clear Calc 25.83 Est GFR (MDRD) Af Amer 31 L Est GFR (MDRD) Non-Af 26 L BUN/Creatinine Ratio 25.2 H Glucose 123 H Hemoglobin A1c Lactic Acid Calcium 8.0 L Phosphorus 6.8 H Magnesium 3.1 H Total Bilirubin 2.00 H AST 1922 H ALT 700 H Alkaline Phosphatase 82 Troponin I B-Natriuretic Peptide Total Protein 6.6 Albumin 2.1 L Globulin 4.5 H Albumin/Globulin Ratio 0.5 L TSH Free T4 Urine Color Urine Clarity Urine pH Ur Specific [place] Urine Protein Urine Glucose (UA) Urine Ketones Urine Occult Blood Urine Nitrite Urine Bilirubin Urine Urobilinogen Ur Leukocyte Esterase Urine RBC Urine WBC Ur Squamous Epith Cells Ur Transition Epith Cell Ur Renal Epithelial Cell Amorphous Sediment Urine Bacteria Urine Mucus Ur Random Sodium Urine Creatinine MRSA (PCR) POC Glucose 06/16/18 06/16/18 06/16/18 06:45 07:04 08:15 WBC RBC Hgb Hct MCV MCH MCHC RDW RDW Differential Plt Count MPV Immature Gran % (Auto) Neut % (Auto) Lymph % (Auto) [place] % (Auto) Eos % (Auto) Baso % (Auto) Absolute Neuts (auto) Absolute Lymphs (auto) Total Counted Neutrophils % (Manual) Band Neutrophils % Lymphocytes % (Manual) Monocytes % (Manual) Metamyelocytes % Plasma Cell % (Manual) Nucleated RBC % Nucleated RBCs/100 WBC Differential Comment Diff Path Review Atypical Lymphocytes Reactive Lymphocytes Platelet Estimate Plt Morphology Comment RBC Morphology Absolute Retic PT INR APTT Fibrinogen Specimen Type ANN Sample Site OTHER pH 7.16 L* Bicarbonate Actual 18.5 L POC Total CO2 20 Base Excess -10 L O2 Saturation 93 L O2 % 80 ABG pCO2 52.4 H ABG pO2 86 [place] Test Respiration Rate 12 O2 Delivery Device Vent Minute Volume 15.00 Vent Mode A-C Tidal Volume 450 POC PEEP 5 Blood Gas Notified Whom ICU MD Blood Gas Notified Time 703 Sodium Potassium Chloride Carbon Dioxide Anion Gap BUN Creatinine Estim Creat Clear Calc Est GFR (MDRD) Af Amer Est GFR (MDRD) Non-Af BUN/Creatinine Ratio Glucose Hemoglobin A1c Lactic Acid 4.9 H* Calcium Phosphorus Magnesium Total Bilirubin AST ALT Alkaline Phosphatase Troponin I B-Natriuretic Peptide Total Protein Albumin Globulin Albumin/Globulin Ratio TSH Free T4 1.56 H Urine Color Urine Clarity Urine pH Ur Specific [place] Urine Protein Urine Glucose (UA) Urine Ketones Urine Occult Blood Urine Nitrite Urine Bilirubin Urine Urobilinogen Ur Leukocyte Esterase Urine RBC Urine WBC Ur Squamous Epith Cells Ur Transition Epith Cell Ur Renal Epithelial Cell Amorphous Sediment Urine Bacteria Urine Mucus Ur Random Sodium Urine Creatinine MRSA (PCR) POC Glucose 06/16/18 06/16/18 06/16/18 08:25 08:25 09:10 WBC RBC Hgb Hct MCV MCH MCHC RDW RDW Differential Plt Count MPV Immature Gran % (Auto) Neut % (Auto) Lymph % (Auto) [place] % (Auto) Eos % (Auto) Baso % (Auto) Absolute Neuts (auto) Absolute Lymphs (auto) Total Counted Neutrophils % (Manual) Band Neutrophils % Lymphocytes % (Manual) Monocytes % (Manual) Metamyelocytes % Plasma Cell % (Manual) Nucleated RBC % Nucleated RBCs/100 WBC Differential Comment Diff Path Review Atypical Lymphocytes Reactive Lymphocytes Platelet Estimate Plt Morphology Comment RBC Morphology Absolute Retic PT 35.6 H INR 3.5 H* APTT Fibrinogen Specimen Type Sample Site pH Bicarbonate Actual POC Total CO2 Base Excess O2 Saturation O2 % ABG pCO2 ABG pO2 [place] Test Respiration Rate O2 Delivery Device Minute Volume Vent Mode Tidal Volume POC PEEP Blood Gas Notified Whom Blood Gas Notified Time Sodium Potassium Chloride Carbon Dioxide Anion Gap BUN Creatinine Estim Creat Clear Calc Est GFR (MDRD) Af Amer Est GFR (MDRD) Non-Af BUN/Creatinine Ratio Glucose Hemoglobin A1c Lactic Acid Calcium Phosphorus Magnesium Total Bilirubin AST ALT Alkaline Phosphatase Troponin I 0.101 H B-Natriuretic Peptide Total Protein Albumin Globulin Albumin/Globulin Ratio TSH Free T4 Urine Color Urine Clarity Urine pH Ur Specific [place] Urine Protein Urine Glucose (UA) Urine Ketones Urine Occult Blood Urine Nitrite Urine Bilirubin Urine Urobilinogen Ur Leukocyte Esterase Urine RBC Urine WBC Ur Squamous Epith Cells Ur Transition Epith Cell Ur Renal Epithelial Cell Amorphous Sediment Urine Bacteria Urine Mucus Ur Random Sodium Urine Creatinine MRSA (PCR) Negative POC Glucose 06/16/18 06/16/18 06/16/18 11:15 11:15 11:15 WBC 17.4 H RBC 4.74 Hgb 13.7 Hct 42.8 MCV 90.3 MCH 28.9 MCHC 32.0 RDW 15.3 H RDW Differential 50.6 H Plt Count 104 L MPV 11.5 Immature Gran % (Auto) Neut % (Auto) Lymph % (Auto) [place] % (Auto) Eos % (Auto) Baso % (Auto) Absolute Neuts (auto) Absolute Lymphs (auto) Total Counted Neutrophils % (Manual) Band Neutrophils % Lymphocytes % (Manual) Monocytes % (Manual) Metamyelocytes % Plasma Cell % (Manual) Nucleated RBC % Nucleated RBCs/100 WBC Differential Comment Diff Path Review Atypical Lymphocytes Reactive Lymphocytes Platelet Estimate Plt Morphology Comment RBC Morphology Absolute Retic PT INR APTT Fibrinogen Specimen Type Sample Site pH Bicarbonate Actual POC Total CO2 Base Excess O2 Saturation O2 % ABG pCO2 ABG pO2 [place] Test Respiration Rate O2 Delivery Device Minute Volume Vent Mode Tidal Volume POC PEEP Blood Gas Notified Whom Blood Gas Notified Time Sodium 139 Potassium 4.9 Chloride 105 Carbon Dioxide 22.0 Anion Gap 12 BUN 55 H Creatinine 2.18 H Estim Creat Clear Calc 24.88 Est GFR (MDRD) Af Amer 30 L Est GFR (MDRD) Non-Af 25 L BUN/Creatinine Ratio 25.2 H Glucose 167 H Hemoglobin A1c Lactic Acid Calcium 6.6 L Phosphorus Magnesium Total Bilirubin AST ALT Alkaline Phosphatase Troponin I B-Natriuretic Peptide Total Protein Albumin Globulin Albumin/Globulin Ratio TSH Free T4 Urine Color Yellow Urine Clarity Cloudy Urine pH 6.0 Ur Specific [place] 1.015 Urine Protein 500 H Urine Glucose (UA) 100 H Urine Ketones 5 H Urine Occult Blood 250 H Urine Nitrite Negative Urine Bilirubin Negative Urine Urobilinogen Normal Ur Leukocyte Esterase 25 H Urine RBC 5-10 SEEN Urine WBC 0-5 SEEN Ur Squamous Epith Cells 0 SEEN Ur Transition Epith Cell 0-5 SEEN Ur Renal Epithelial Cell 0-5 SEEN Amorphous Sediment 1+ Urine Bacteria 2+ Urine Mucus 1+ Ur Random Sodium Urine Creatinine MRSA (PCR) POC Glucose 06/16/18 06/16/18 06/16/18 11:15 11:43 17:51 WBC RBC Hgb Hct MCV MCH MCHC RDW RDW Differential Plt Count MPV Immature Gran % (Auto) Neut % (Auto) Lymph % (Auto) [place] % (Auto) Eos % (Auto) Baso % (Auto) Absolute Neuts (auto) Absolute Lymphs (auto) Total Counted Neutrophils % (Manual) Band Neutrophils % Lymphocytes % (Manual) Monocytes % (Manual) Metamyelocytes % Plasma Cell % (Manual) Nucleated RBC % Nucleated RBCs/100 WBC Differential Comment Diff Path Review Atypical Lymphocytes Reactive Lymphocytes Platelet Estimate Plt Morphology Comment RBC Morphology Absolute Retic PT INR APTT Fibrinogen Specimen Type Sample Site pH Bicarbonate Actual POC Total CO2 Base Excess O2 Saturation O2 % ABG pCO2 ABG pO2 [place] Test Respiration Rate O2 Delivery Device Minute Volume Vent Mode Tidal Volume POC PEEP Blood Gas Notified Whom Blood Gas Notified Time Sodium Potassium Chloride Carbon Dioxide Anion Gap BUN Creatinine Estim Creat Clear Calc Est GFR (MDRD) Af Amer Est GFR (MDRD) Non-Af BUN/Creatinine Ratio Glucose Hemoglobin A1c Lactic Acid Calcium Phosphorus Magnesium Total Bilirubin AST ALT Alkaline Phosphatase Troponin I B-Natriuretic Peptide Total Protein Albumin Globulin Albumin/Globulin Ratio TSH Free T4 Urine Color Urine Clarity Urine pH Ur Specific [place] Urine Protein Urine Glucose (UA) Urine Ketones Urine Occult Blood Urine Nitrite Urine Bilirubin Urine Urobilinogen Ur Leukocyte Esterase Urine RBC Urine WBC Ur Squamous Epith Cells Ur Transition Epith Cell Ur Renal Epithelial Cell Amorphous Sediment Urine Bacteria Urine Mucus Ur Random Sodium 74 Urine Creatinine 180.00 MRSA (PCR) POC Glucose 204 H 06/16/18 06/16/18 06/16/18 17:51 17:55 17:55 WBC 17.5 H RBC 5.07 Hgb 14.6 Hct 44.7 MCV 88.2 MCH 28.8 MCHC 32.7 RDW 15.2 H RDW Differential 48.8 H Plt Count 143 L MPV 11.7 Immature Gran % (Auto) 1.900 H Neut % (Auto) 80.6 H Lymph % (Auto) 11.8 L [place] % (Auto) 4.4 Eos % (Auto) 0.0 Baso % (Auto) 1.3 H Absolute Neuts (auto) 14.1 H Absolute Lymphs (auto) 2.07 Total Counted Not Reportable Neutrophils % (Manual) Band Neutrophils % Lymphocytes % (Manual) Monocytes % (Manual) Metamyelocytes % Plasma Cell % (Manual) Nucleated RBC % 0.3 Nucleated RBCs/100 WBC Differential Comment SCANNED Diff Path Review May foll Atypical Lymphocytes RARE Reactive Lymphocytes RARE Platelet Estimate SLT DEC Plt Morphology Comment RBC Morphology Absolute Retic 0.05 PT INR APTT 40.9 H Fibrinogen Specimen Type Sample Site pH Bicarbonate Actual POC Total CO2 Base Excess O2 Saturation O2 % ABG pCO2 ABG pO2 [place] Test Respiration Rate O2 Delivery Device Minute Volume Vent Mode Tidal Volume POC PEEP Blood Gas Notified Whom Blood Gas Notified Time Sodium Potassium Chloride Carbon Dioxide Anion Gap BUN Creatinine Estim Creat Clear Calc Est GFR (MDRD) Af Amer Est GFR (MDRD) Non-Af BUN/Creatinine Ratio Glucose Hemoglobin A1c Lactic Acid Calcium Phosphorus Magnesium Total Bilirubin AST ALT Alkaline Phosphatase Troponin I B-Natriuretic Peptide Total Protein Albumin Globulin Albumin/Globulin Ratio TSH Free T4 Urine Color Urine Clarity Urine pH Ur Specific [place] Urine Protein Urine Glucose (UA) Urine Ketones Urine Occult Blood Urine Nitrite Urine Bilirubin Urine Urobilinogen Ur Leukocyte Esterase Urine RBC Urine WBC Ur Squamous Epith Cells Ur Transition Epith Cell Ur Renal Epithelial Cell Amorphous Sediment Urine Bacteria Urine Mucus Ur Random Sodium 16 Urine Creatinine MRSA (PCR) POC Glucose 06/16/18 06/16/18 06/16/18 17:55 17:55 17:55 WBC RBC Hgb Hct MCV MCH MCHC RDW RDW Differential Plt Count MPV Immature Gran % (Auto) Neut % (Auto) Lymph % (Auto) [place] % (Auto) Eos % (Auto) Baso % (Auto) Absolute Neuts (auto) Absolute Lymphs (auto) Total Counted Neutrophils % (Manual) Band Neutrophils % Lymphocytes % (Manual) Monocytes % (Manual) Metamyelocytes % Plasma Cell % (Manual) Nucleated RBC % Nucleated RBCs/100 WBC Differential Comment Diff Path Review Atypical Lymphocytes Reactive Lymphocytes Platelet Estimate Plt Morphology Comment RBC Morphology Absolute Retic PT 25.5 H INR 2.3 APTT Fibrinogen 621 H Specimen Type Sample Site pH Bicarbonate Actual POC Total CO2 Base Excess O2 Saturation O2 % ABG pCO2 ABG pO2 [place] Test Respiration Rate O2 Delivery Device Minute Volume Vent Mode Tidal Volume POC PEEP Blood Gas Notified Whom Blood Gas Notified Time Sodium 139 Potassium 4.0 Chloride 106 Carbon Dioxide 19.0 L Anion Gap 14 BUN 62 H Creatinine 2.47 H Estim Creat Clear Calc 21.96 Est GFR (MDRD) Af Amer 26 L Est GFR (MDRD) Non-Af 22 L BUN/Creatinine Ratio 25.1 H Glucose 154 H Hemoglobin A1c Lactic Acid Calcium 6.9 L Phosphorus Magnesium Total Bilirubin 1.90 H AST 67785 H ALT 3831 H Alkaline Phosphatase 79 Troponin I 0.175 H B-Natriuretic Peptide Total Protein 5.9 L Albumin 2.0 L Globulin 3.9 Albumin/Globulin Ratio 0.5 L TSH Free T4 Urine Color Urine Clarity Urine pH Ur Specific [place] Urine Protein Urine Glucose (UA) Urine Ketones Urine Occult Blood Urine Nitrite Urine Bilirubin Urine Urobilinogen Ur Leukocyte Esterase Urine RBC Urine WBC Ur Squamous Epith Cells Ur Transition Epith Cell Ur Renal Epithelial Cell Amorphous Sediment Urine Bacteria Urine Mucus Ur Random Sodium Urine Creatinine MRSA (PCR) POC Glucose 06/17/18 06/17/18 06/17/18 04:45 04:45 04:45 WBC 14.3 H RBC 4.60 Hgb 13.4 Hct 40.2 MCV 87.4 MCH 29.1 MCHC 33.3 RDW 15.2 H RDW Differential 48.3 H Plt Count 178 MPV 12.2 H Immature Gran % (Auto) Neut % (Auto) Not Reportable Lymph % (Auto) [place] % (Auto) Eos % (Auto) Baso % (Auto) Absolute Neuts (auto) 12.7 H Absolute Lymphs (auto) 1.14 Total Counted 100 Neutrophils % (Manual) 87 H Band Neutrophils % 2 Lymphocytes % (Manual) 8 L Monocytes % (Manual) 2 Metamyelocytes % 1 Plasma Cell % (Manual) Nucleated RBC % Nucleated RBCs/100 WBC Differential Comment Diff Path Review May foll Atypical Lymphocytes Reactive Lymphocytes Platelet Estimate ADEQUATE Plt Morphology Comment RBC Morphology NORM C+C Absolute Retic PT 21.7 H INR 1.9 APTT Fibrinogen Specimen Type Sample Site pH Bicarbonate Actual POC Total CO2 Base Excess O2 Saturation O2 % ABG pCO2 ABG pO2 [place] Test Respiration Rate O2 Delivery Device Minute Volume Vent Mode Tidal Volume POC PEEP Blood Gas Notified Whom Blood Gas Notified Time Sodium 140 Potassium 4.0 Chloride 105 Carbon Dioxide 21.0 Anion Gap 14 BUN 74 H Creatinine 3.10 H Estim Creat Clear Calc 17.50 Est GFR (MDRD) Af Amer 20 L Est GFR (MDRD) Non-Af 17 L BUN/Creatinine Ratio 23.9 H Glucose 76 Hemoglobin A1c Lactic Acid Calcium 7.0 L Phosphorus 5.8 H Magnesium 2.4 Total Bilirubin 2.20 H AST 9605 H ALT 3500 H Alkaline Phosphatase 84 Troponin I B-Natriuretic Peptide Total Protein 5.6 L Albumin 1.9 L Globulin 3.7 Albumin/Globulin Ratio 0.5 L TSH Free T4 Urine Color Urine Clarity Urine pH Ur Specific [place] Urine Protein Urine Glucose (UA) Urine Ketones Urine Occult Blood Urine Nitrite Urine Bilirubin Urine Urobilinogen Ur Leukocyte Esterase Urine RBC Urine WBC Ur Squamous Epith Cells Ur Transition Epith Cell Ur Renal Epithelial Cell Amorphous Sediment Urine Bacteria Urine Mucus Ur Random Sodium Urine Creatinine MRSA (PCR) POC Glucose Microbiology 06/16/18 08:10 Sputum, Tracheal Aspirate Gram Stain - Final 06/16/18 05:20 Transtracheal Aspirate Gram Stain - Final 06/15/18 20:45 Mucosa - Nose Respiratory Panel (PCR) - Final Influenza A (Subtype H1) 06/16/18 11:15 Urine Catheter - Robertson Legionella Antigen - Final 06/16/18 11:15 Urine Catheter - Robertson Streptococcus pneumoniae Antigen (M - Final Clinical Impression(s) from Imaging Studies Chest X-Ray 06/16/18 07:23 IMPRESSION: There is consolidation right midlung zone left lower lobe suspicious for pneumonia. Lines as detailed above. The NG tube could be advanced 5 cm. Electronically Signed: Carline Nieto MD at 10:02 EST Tel , Service support , Medical Necessity - Tobacco Use Smoking Status: Current every day smoker - Patient notes that she is currently smoking 2-3 cigarettes/day. Tobacco Use: Cigarettes Assessment/Plan All Active Problems Severe sepsis (Acute) Acute respiratory failure with hypoxia (Acute) Pneumonia (Acute) Atrial fibrillation with RVR (Acute) LYNNETTE (acute kidney injury) (Acute) RECOMMENDATIONS: 1. Continue vasopressor support in an attempt to maintain a mean arterial pressure at or above 65 mmHg. 2. Transition to Precedex therapy for sedation 3. Initiation of empiric steroid therapy, will need to watch blood sugars closely 4. Await echocardiogram. Await cardiology recommendations 5. Continue to hold on CT chest 6. Await nephrology consultation. 7. Administer additional lactated Ringer's boluses. 8. Continue Tamiflu. Continue broad antibiotics until culture negative 9. Continue bronchodilators IMPRESSIONS: 1. Septic shock with multiorgan system dysfunction secondary to severe co mmunity-acquired pneumonia Patient influenza A positive. Patient was originally requiring 3 separate pressors to maintain adequate blood pressure. This may have been complicated by underlying rate control for A. fib. Patient currently off of all pressor therapy. We will continue to monitor. Cannot exclude a superinfection with MRSA, so broad-spectrum antibiotics will be continued until cultures are negative. Significant infiltrate noted on chest x-ray. 2. Acute hypoxemic and hypercarbic respiratory failure As noted above, clinical concern for severe community-acquired pneumonia. In addition, the patient's brother does have a history of unprovoked venous thromboembolic disease, raising the suspicion for PE as a potential contribution to the patient's decompensation. Continue with heparin drip for now. Patient does have a history of smoking and has wheezing on exam, so will start empiric steroid therapy. 3. New onset atrial fibrillation with rapid ventricular response/troponin elevation/cardiopulmonary arrest Although the patient presented to the hospital with new onset atrial fibrillation, her cardiac arrest was most likely precipitated by hypoxemia. She has been stabilized at this point. The patient converted to normal sinus rhythm overnight following administration of amiodarone, which has been discontinued at this time. We will continue current supportive measures as noted above. Echocardiogram is currently pending. Troponins are relatively unimpressive give n patient's clinical course. Cardiology is following. 4. Acute kidney injury/shock liver Secondary to hemodynamic instability in the setting of #1. My suspicion is that the patient's renal function will continue to worsen over the next 24 to 48 hours. Await nephrology recommendations 5. Metabolic encephalopathy Likely secondary to increased metabolic demands in the setting of #1 coupled with hypercarbia. Despite having gone into cardiac arrest on 2 separate occasions during this hospitalization, the patient's mentation appears to be intact. Continue current supportive measures as noted above. 6. Unknown medical history/morbid obesity/tobacco dependency Complicates care, management, recovery and prognosis. Nicotine replacement therapy can be considered once the patient is deemed to be stabilized clinically. Okay to initiate tube feeds. TIME: 38 minutes of critical care time was spent addressing the patient's septic shock, multiorgan system dysfunction, severe community-acquired pneumonia, acute respiratory failure, new onset atrial fibrillation, cardiac arrest, acute kidney injury, shock liver, metabolic encephalopathy, review of all data and collaboration with the care team. (6:30 AM to 7:30 AM) Code Visit [id number]: [id number] Critical care first hour
--- NOTE | 2018-06-17 09:00 | PN.RENAL_ITS ---
Patient Problems: Active and Suspected Problems Severe sepsis (Acute) Acute respiratory failure with hypoxia (Acute) Pneumonia (Acute) Atrial fibrillation with RVR (Acute) LYNNETTE (acute kidney injury) (Acute) Subjective: Patient remains intubated. FiO2 50%. Anuric. Not on any pressor - Physical Exam General: No apparent distress Oral: Moist Mucosa Neck: Supple, No JVD Lungs: Clear to auscultation, Normal air movement, No rhonchi, No wheeze Cardiovascular: Regular rate, Regular Rhythm, Normal S1, Normal S2 Abdomen: Bowel Sounds Present, Soft, Non Tender, Non-Distended Extremities: No clubbing, No cyanosis, No edema Skin: No rashes Musculoskeletal: No Tenderness to Palpation of Joints or Extremities Lymphatic: No Cervical, Supraclavicular, or Inguinal Adenopathy Neurological: Neuro grossly intact Psych/Mental Status: Appropriate Vital Signs Temp Pulse Resp BP Pulse Ox 97.8 F 84 36 H 94/68 92 06/17/18 04:00 06/17/18 07:00 06/17/18 07:00 06/17/18 07:00 06/17/18 07:00 Oxygen Flow Rate (L/min) 60 Oxygen Delivery Method Mechanical Ventilator Weight: 114.9 kg Body Mass Index (BMI) 40.4 Intake and Output for Last 24 Hours 06/15/18 06/16/18 06/17/18 23:59 23:59 23:59 Intake Total 8180.6 / 8180.6 204 / 204 Output Total 245 / 245 40 / 40 Balance 7935.6 / 7935.6 164 / 164 Microbiology Past 72 Hours 06/16/18 08:10 Gram Stain - Final Sputum, Tracheal Aspirate 06/16/18 05:20 Gram Stain - Final Transtracheal Aspirate 06/15/18 20:45 Respiratory Panel (PCR) - Final Mucosa - Nose Influenza A (Subtype H1) 06/16/18 11:15 Legionella Antigen - Final Urine Catheter - Robertson 06/16/18 11:15 Streptococcus pneumoniae Antigen (M - Final Urine Catheter - Robertson Laboratory Tests Past 24 Hrs 06/16/18 06/16/18 06/16/18 08:15 08:25 09:10 WBC RBC Hgb Hct MCV MCH MCHC RDW RDW Differential Plt Count MPV Immature Gran % (Auto) Neut % (Auto) Lymph % (Auto) [place] % (Auto) Eos % (Auto) Baso % (Auto) Absolute Neuts (auto) Absolute Lymphs (auto) Total Counted Neutrophils % (Manual) Band Neutrophils % Lymphocytes % (Manual) Monocytes % (Manual) Metamyelocytes % Nucleated RBC % Differential Comment Diff Path Review Atypical Lymphocytes Reactive Lymphocytes Platelet Estimate RBC Morphology Absolute Retic PT 35.6 H INR 3.5 H* APTT Fibrinogen Sodium Potassium Chloride Carbon Dioxide Anion Gap BUN Creatinine Estim Creat Clear Calc Est GFR (MDRD) Af Amer Est GFR (MDRD) Non-Af BUN/Creatinine Ratio Glucose Lactic Acid 4.9 H* Calcium Phosphorus Magnesium Total Bilirubin AST ALT Alkaline Phosphatase Troponin I Total Protein Albumin Globulin Albumin/Globulin Ratio Urine Color Urine Clarity Urine pH Ur Specific [place] Urine Protein Urine Glucose (UA) Urine Ketones Urine Occult Blood Urine Nitrite Urine Bilirubin Urine Urobilinogen Ur Leukocyte Esterase Urine RBC Urine WBC Ur Squamous Epith Cells Ur Transition Epith Cell Ur Renal Epithelial Cell Amorphous Sediment Urine Bacteria Urine Mucus Ur Random Sodium Urine Creatinine MRSA (PCR) Negative 06/16/18 06/16/18 06/16/18 11:15 11:15 11:15 WBC 17.4 H RBC 4.74 Hgb 13.7 Hct 42.8 MCV 90.3 MCH 28.9 MCHC 32.0 RDW 15.3 H RDW Differential 50.6 H Plt Count 104 L MPV 11.5 Immature Gran % (Auto) Neut % (Auto) Lymph % (Auto) [place] % (Auto) Eos % (Auto) Baso % (Auto) Absolute Neuts (auto) Absolute Lymphs (auto) Total Counted Neutrophils % (Manual) Band Neutrophils % Lymphocytes % (Manual) Monocytes % (Manual) Metamyelocytes % Nucleated RBC % Differential Comment Diff Path Review Atypical Lymphocytes Reactive Lymphocytes Platelet Estimate RBC Morphology Absolute Retic PT INR APTT Fibrinogen Sodium 139 Potassium 4.9 Chloride 105 Carbon Dioxide 22.0 Anion Gap 12 BUN 55 H Creatinine 2.18 H Estim Creat Clear Calc 24.88 Est GFR (MDRD) Af Amer 30 L Est GFR (MDRD) Non-Af 25 L BUN/Creatinine Ratio 25.2 H Glucose 167 H Lactic Acid Calcium 6.6 L Phosphorus Magnesium Total Bilirubin AST ALT Alkaline Phosphatase Troponin I Total Protein Albumin Globulin Albumin/Globulin Ratio Urine Color Yellow Urine Clarity Cloudy Urine pH 6.0 Ur Specific [place] 1.015 Urine Protein 500 H Urine Glucose (UA) 100 H Urine Ketones 5 H Urine Occult Blood 250 H Urine Nitrite Negative Urine Bilirubin Negative Urine Urobilinogen Normal Ur Leukocyte Esterase 25 H Urine RBC 5-10 SEEN Urine WBC 0-5 SEEN Ur Squamous Epith Cells 0 SEEN Ur Transition Epith Cell 0-5 SEEN Ur Renal Epithelial Cell 0-5 SEEN Amorphous Sediment 1+ Urine Bacteria 2+ Urine Mucus 1+ Ur Random Sodium Urine Creatinine MRSA (PCR) 06/16/18 06/16/18 06/16/18 11:15 17:51 17:51 WBC RBC Hgb Hct MCV MCH MCHC RDW RDW Differential Plt Count MPV Immature Gran % (Auto) Neut % (Auto) Lymph % (Auto) [place] % (Auto) Eos % (Auto) Baso % (Auto) Absolute Neuts (auto) Absolute Lymphs (auto) Total Counted Neutrophils % (Manual) Band Neutrophils % Lymphocytes % (Manual) Monocytes % (Manual) Metamyelocytes % Nucleated RBC % Differential Comment Diff Path Review Atypical Lymphocytes Reactive Lymphocytes Platelet Estimate RBC Morphology Absolute Retic PT INR APTT Fibrinogen Sodium Potassium Chloride Carbon Dioxide Anion Gap BUN Creatinine Estim Creat Clear Calc Est GFR (MDRD) Af Amer Est GFR (MDRD) Non-Af BUN/Creatinine Ratio Glucose Lactic Acid Calcium Phosphorus Magnesium Total Bilirubin AST ALT Alkaline Phosphatase Troponin I Total Protein Albumin Globulin Albumin/Globulin Ratio Urine Color Urine Clarity Urine pH Ur Specific [place] Urine Protein Urine Glucose (UA) Urine Ketones Urine Occult Blood Urine Nitrite Urine Bilirubin Urine Urobilinogen Ur Leukocyte Esterase Urine RBC Urine WBC Ur Squamous Epith Cells Ur Transition Epith Cell Ur Renal Epithelial Cell Amorphous Sediment Urine Bacteria Urine Mucus Ur Random Sodium 74 16 Urine Creatinine 180.00 MRSA (PCR) 06/16/18 06/16/18 06/16/18 17:55 17:55 17:55 WBC 17.5 H RBC 5.07 Hgb 14.6 Hct 44.7 MCV 88.2 MCH 28.8 MCHC 32.7 RDW 15.2 H RDW Differential 48.8 H Plt Count 143 L MPV 11.7 Immature Gran % (Auto) 1.900 H Neut % (Auto) 80.6 H Lymph % (Auto) 11.8 L [place] % (Auto) 4.4 Eos % (Auto) 0.0 Baso % (Auto) 1.3 H Absolute Neuts (auto) 14.1 H Absolute Lymphs (auto) 2.07 Total Counted Not Reportable Neutrophils % (Manual) Band Neutrophils % Lymphocytes % (Manual) Monocytes % (Manual) Metamyelocytes % Nucleated RBC % 0.3 Differential Comment SCANNED Diff Path Review May foll Atypical Lymphocytes RARE Reactive Lymphocytes RARE Platelet Estimate SLT DEC RBC Morphology Absolute Retic 0.05 PT 25.5 H INR 2.3 APTT 40.9 H Fibrinogen 621 H Sodium Potassium Chloride Carbon Dioxide Anion Gap BUN Creatinine Estim Creat Clear Calc Est GFR (MDRD) Af Amer Est GFR (MDRD) Non-Af BUN/Creatinine Ratio Glucose Lactic Acid Calcium Phosphorus Magnesium Total Bilirubin AST ALT Alkaline Phosphatase Troponin I Total Protein Albumin Globulin Albumin/Globulin Ratio Urine Color Urine Clarity Urine pH Ur Specific [place] Urine Protein Urine Glucose (UA) Urine Ketones Urine Occult Blood Urine Nitrite Urine Bilirubin Urine Urobilinogen Ur Leukocyte Esterase Urine RBC Urine WBC Ur Squamous Epith Cells Ur Transition Epith Cell Ur Renal Epithelial Cell Amorphous Sediment Urine Bacteria Urine Mucus Ur Random Sodium Urine Creatinine MRSA (PCR) 06/16/18 06/16/18 06/17/18 17:55 17:55 04:45 WBC 14.3 H RBC 4.60 Hgb 13.4 Hct 40.2 MCV 87.4 MCH 29.1 MCHC 33.3 RDW 15.2 H RDW Differential 48.3 H Plt Count 178 MPV 12.2 H Immature Gran % (Auto) Neut % (Auto) Not Reportable Lymph % (Auto) [place] % (Auto) Eos % (Auto) Baso % (Auto) Absolute Neuts (auto) 12.7 H Absolute Lymphs (auto) 1.14 Total Counted 100 Neutrophils % (Manual) 87 H Band Neutrophils % 2 Lymphocytes % (Manual) 8 L Monocytes % (Manual) 2 Metamyelocytes % 1 Nucleated RBC % Differential Comment Diff Path Review May foll Atypical Lymphocytes Reactive Lymphocytes Platelet Estimate ADEQUATE RBC Morphology NORM C+C Absolute Retic PT INR APTT Fibrinogen Sodium 139 Potassium 4.0 Chloride 106 Carbon Dioxide 19.0 L Anion Gap 14 BUN 62 H Creatinine 2.47 H Estim Creat Clear Calc 21.96 Est GFR (MDRD) Af Amer 26 L Est GFR (MDRD) Non-Af 22 L BUN/Creatinine Ratio 25.1 H Glucose 154 H Lactic Acid Calcium 6.9 L Phosphorus Magnesium Total Bilirubin 1.90 H AST 38260 H ALT 3831 H Alkaline Phosphatase 79 Troponin I 0.175 H Total Protein 5.9 L Albumin 2.0 L Globulin 3.9 Albumin/Globulin Ratio 0.5 L Urine Color Urine Clarity Urine pH Ur Specific [place] Urine Protein Urine Glucose (UA) Urine Ketones Urine Occult Blood Urine Nitrite Urine Bilirubin Urine Urobilinogen Ur Leukocyte Esterase Urine RBC Urine WBC Ur Squamous Epith Cells Ur Transition Epith Cell Ur Renal Epithelial Cell Amorphous Sediment Urine Bacteria Urine Mucus Ur Random Sodium Urine Creatinine MRSA (PCR) 06/17/18 06/17/18 04:45 04:45 WBC RBC Hgb Hct MCV MCH MCHC RDW RDW Differential Plt Count MPV Immature Gran % (Auto) Neut % (Auto) Lymph % (Auto) [place] % (Auto) Eos % (Auto) Baso % (Auto) Absolute Neuts (auto) Absolute Lymphs (auto) Total Counted Neutrophils % (Manual) Band Neutrophils % Lymphocytes % (Manual) Monocytes % (Manual) Metamyelocytes % Nucleated RBC % Differential Comment Diff Path Review Atypical Lymphocytes Reactive Lymphocytes Platelet Estimate RBC Morphology Absolute Retic PT 21.7 H INR 1.9 APTT Fibrinogen Sodium 140 Potassium 4.0 Chloride 105 Carbon Dioxide 21.0 Anion Gap 14 BUN 74 H Creatinine 3.10 H Estim Creat Clear Calc 17.50 Est GFR (MDRD) Af Amer 20 L Est GFR (MDRD) Non-Af 17 L BUN/Creatinine Ratio 23.9 H Glucose 76 Lactic Acid Calcium 7.0 L Phosphorus 5.8 H Magnesium 2.4 Total Bilirubin 2.20 H AST 9605 H ALT 3500 H Alkaline Phosphatase 84 Troponin I Total Protein 5.6 L Albumin 1.9 L Globulin 3.7 Albumin/Globulin Ratio 0.5 L Urine Color Urine Clarity Urine pH Ur Specific [place] Urine Protein Urine Glucose (UA) Urine Ketones Urine Occult Blood Urine Nitrite Urine Bilirubin Urine Urobilinogen Ur Leukocyte Esterase Urine RBC Urine WBC Ur Squamous Epith Cells Ur Transition Epith Cell Ur Renal Epithelial Cell Amorphous Sediment Urine Bacteria Urine Mucus Ur Random Sodium Urine Creatinine MRSA (PCR) POC Glucose 06/16/18 11:43 POC Glucose 204 H Medical Necessity - Tobacco Use Smoking Status: Current every day smoker - Patient notes that she is currently smoking 2-3 cigarettes/day. Tobacco Use: Cigarettes Assessment/Plan All Active Problems Severe sepsis (Acute) Acute respiratory failure with hypoxia (Acute) Pneumonia (Acute) Atrial fibrillation with RVR (Acute) LYNNETTE (acute kidney injury) (Acute) 1-acute kidney injury. Most probably related to ischemic ATN following CODE BLUE. Creatinine continues to rise. Patient is anuric. I will arrange for first hemodialysis session for 2 hours, blood flow rate 200, dialysate flow rate 400, ultrafiltration 1-2 L.Please keep mean arterial pressure more than 65. Avoid nephrotoxic. I will order UA along with urine indices. 2-acute respiratory failure. 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 3-bilateral pneumonia. On antibiotics please dose antibiotics as per the current GFR 4-A. fib with RVR. Patient needed Cardizem drip now back to sinus rhythm. Renal team will continue to follow. Please call with any question or concern Plan of care was discussed with Dr. Jone Velázquez and the family at bedside Aaliyah Muñoz MD [phone]
--- NOTE | 2018-06-17 09:39 | PCM.PROGNOTE ---
Patient Problems: Active and Suspected Problems Severe sepsis (Acute) Acute respiratory failure with hypoxia (Acute) Pneumonia (Acute) Atrial fibrillation with RVR (Acute) LYNNETTE (acute kidney injury) (Acute) Subjective: Chief complaint: Follow-up after admission for septic shock due to community acquired pneumonia, acute hypoxic and hypercapnic respiratory failure, acute renal failure, new onset A. fib with RVR, status post cardiac arrest and shock liver. Patient seen and examined. No acute events overnight. She remained intubated, on sedation. She was taken off vasopressors this morning and blood pressure maintained. Spontaneous breathing trial this morning done and patient became severely tachypneic and hypoxemic. She is afebrile, blood pressure is maintained, heart rate stable, remained on mechanical ventilation. - Physical Exam General: - - Sedated, intubated. HEENT: Atraumatic, PERRLA, EOMI, Normocephalic Oral: Moist Mucosa, No Gingival or Mucosal Lesions/ Ulcerations Neck: Supple, No JVD, Negative Carotid Bruits, Trachea Midline, Thyroid Normal Size and Texture Lungs: No rales, Diminished, Rhonchi, Wheezes, - - Decreased breath sounds bilateral, bilateral rhonchi, occasional wheezes. Cardiovascular: Normal S1, Normal S2, No murmurs, PMI Normal, Irregular Rate Abdomen: Bowel Sounds Present, Soft, Non Tender, Non-Distended, No Hepato-splenomegaly, Obese Extremities: No clubbing, No cyanosis, Edema - Trace edema. Skin: No rashes, No breakdown Lymphatic: No Cervical, Supraclavicular, or Inguinal Adenopathy Neurological: - - Unable to assess, patient is sedated. Psych/Mental Status: - - Unable to assess, patient is sedated. Vital Signs Temp Pulse Resp BP Pulse Ox 97.8 F 84 36 H 94/68 92 06/17/18 04:00 06/17/18 07:00 06/17/18 07:00 06/17/18 07:00 06/17/18 07:00 Oxygen Flow Rate (L/min) 60 Oxygen Delivery Method Mechanical Ventilator Weight: 253 lb 4.978 oz Body Mass Index (BMI) 40.4 Intake and Output for Last 24 Hours 06/15/18 06/16/18 06/17/18 23:59 23:59 23:59 Intake Total 8180.6 / 8180.6 204 / 204 Output Total 245 / 245 40 / 40 Balance 7935.6 / 7935.6 164 / 164 Microbiology Past 72 Hours 06/16/18 08:10 Gram Stain - Final Sputum, Tracheal Aspirate 06/16/18 05:20 Gram Stain - Final Transtracheal Aspirate 06/15/18 20:45 Respiratory Panel (PCR) - Final Mucosa - Nose Influenza A (Subtype H1) 06/16/18 11:15 Legionella Antigen - Final Urine Catheter - Robertson 06/16/18 11:15 Streptococcus pneumoniae Antigen (M - Final Urine Catheter - Robertson Laboratory Tests Past 24 Hrs 06/16/18 06/16/18 06/16/18 08:25 09:10 11:15 WBC 17.4 H RBC 4.74 Hgb 13.7 Hct 42.8 MCV 90.3 MCH 28.9 MCHC 32.0 RDW 15.3 H RDW Differential 50.6 H Plt Count 104 L MPV 11.5 Immature Gran % (Auto) Neut % (Auto) Lymph % (Auto) Rush % (Auto) Eos % (Auto) Baso % (Auto) Absolute Neuts (auto) Absolute Lymphs (auto) Total Counted Neutrophils % (Manual) Band Neutrophils % Lymphocytes % (Manual) Monocytes % (Manual) Metamyelocytes % Nucleated RBC % Differential Comment Diff Path Review Atypical Lymphocytes Reactive Lymphocytes Platelet Estimate RBC Morphology Absolute Retic PT 35.6 H INR 3.5 H* APTT Fibrinogen Sodium Potassium Chloride Carbon Dioxide Anion Gap BUN Creatinine Estim Creat Clear Calc Est GFR (MDRD) Af Amer Est GFR (MDRD) Non-Af BUN/Creatinine Ratio Glucose Calcium Phosphorus Magnesium Total Bilirubin AST ALT Alkaline Phosphatase Troponin I Total Protein Albumin Globulin Albumin/Globulin Ratio Urine Color Urine Clarity Urine pH Ur Specific [place] Urine Protein Urine Glucose (UA) Urine Ketones Urine Occult Blood Urine Nitrite Urine Bilirubin Urine Urobilinogen Ur Leukocyte Esterase Urine RBC Urine WBC Ur Squamous Epith Cells Ur Transition Epith Cell Ur Renal Epithelial Cell Amorphous Sediment Urine Bacteria Urine Mucus Ur Random Sodium Urine Creatinine MRSA (PCR) Negative 06/16/18 06/16/18 06/16/18 11:15 11:15 11:15 WBC RBC Hgb Hct MCV MCH MCHC RDW RDW Differential Plt Count MPV Immature Gran % (Auto) Neut % (Auto) Lymph % (Auto) Rush % (Auto) Eos % (Auto) Baso % (Auto) Absolute Neuts (auto) Absolute Lymphs (auto) Total Counted Neutrophils % (Manual) Band Neutrophils % Lymphocytes % (Manual) Monocytes % (Manual) Metamyelocytes % Nucleated RBC % Differential Comment Diff Path Review Atypical Lymphocytes Reactive Lymphocytes Platelet Estimate RBC Morphology Absolute Retic PT INR APTT Fibrinogen Sodium 139 Potassium 4.9 Chloride 105 Carbon Dioxide 22.0 Anion Gap 12 BUN 55 H Creatinine 2.18 H Estim Creat Clear Calc 24.88 Est GFR (MDRD) Af Amer 30 L Est GFR (MDRD) Non-Af 25 L BUN/Creatinine Ratio 25.2 H Glucose 167 H Calcium 6.6 L Phosphorus Magnesium Total Bilirubin AST ALT Alkaline Phosphatase Troponin I Total Protein Albumin Globulin Albumin/Globulin Ratio Urine Color Yellow Urine Clarity Cloudy Urine pH 6.0 Ur Specific [place] 1.015 Urine Protein 500 H Urine Glucose (UA) 100 H Urine Ketones 5 H Urine Occult Blood 250 H Urine Nitrite Negative Urine Bilirubin Negative Urine Urobilinogen Normal Ur Leukocyte Esterase 25 H Urine RBC 5-10 SEEN Urine WBC 0-5 SEEN Ur Squamous Epith Cells 0 SEEN Ur Transition Epith Cell 0-5 SEEN Ur Renal Epithelial Cell 0-5 SEEN Amorphous Sediment 1+ Urine Bacteria 2+ Urine Mucus 1+ Ur Random Sodium 74 Urine Creatinine MRSA (PCR) 06/16/18 06/16/18 06/16/18 17:51 17:51 17:55 WBC RBC Hgb Hct MCV MCH MCHC RDW RDW Differential Plt Count MPV Immature Gran % (Auto) Neut % (Auto) Lymph % (Auto) Rush % (Auto) Eos % (Auto) Baso % (Auto) Absolute Neuts (auto) Absolute Lymphs (auto) Total Counted Neutrophils % (Manual) Band Neutrophils % Lymphocytes % (Manual) Monocytes % (Manual) Metamyelocytes % Nucleated RBC % Differential Comment Diff Path Review Atypical Lymphocytes Reactive Lymphocytes Platelet Estimate RBC Morphology Absolute Retic PT INR APTT 40.9 H Fibrinogen Sodium Potassium Chloride Carbon Dioxide Anion Gap BUN Creatinine Estim Creat Clear Calc Est GFR (MDRD) Af Amer Est GFR (MDRD) Non-Af BUN/Creatinine Ratio Glucose Calcium Phosphorus Magnesium Total Bilirubin AST ALT Alkaline Phosphatase Troponin I Total Protein Albumin Globulin Albumin/Globulin Ratio Urine Color Urine Clarity Urine pH Ur Specific [place] Urine Protein Urine Glucose (UA) Urine Ketones Urine Occult Blood Urine Nitrite Urine Bilirubin Urine Urobilinogen Ur Leukocyte Esterase Urine RBC Urine WBC Ur Squamous Epith Cells Ur Transition Epith Cell Ur Renal Epithelial Cell Amorphous Sediment Urine Bacteria Urine Mucus Ur Random Sodium 16 Urine Creatinine 180.00 MRSA (PCR) 06/16/18 06/16/18 06/16/18 17:55 17:55 17:55 WBC 17.5 H RBC 5.07 Hgb 14.6 Hct 44.7 MCV 88.2 MCH 28.8 MCHC 32.7 RDW 15.2 H RDW Differential 48.8 H Plt Count 143 L MPV 11.7 Immature Gran % (Auto) 1.900 H Neut % (Auto) 80.6 H Lymph % (Auto) 11.8 L Rush % (Auto) 4.4 Eos % (Auto) 0.0 Baso % (Auto) 1.3 H Absolute Neuts (auto) 14.1 H Absolute Lymphs (auto) 2.07 Total Counted Not Reportable Neutrophils % (Manual) Band Neutrophils % Lymphocytes % (Manual) Monocytes % (Manual) Metamyelocytes % Nucleated RBC % 0.3 Differential Comment SCANNED Diff Path Review May foll Atypical Lymphocytes RARE Reactive Lymphocytes RARE Platelet Estimate SLT DEC RBC Morphology Absolute Retic 0.05 PT 25.5 H INR 2.3 APTT Fibrinogen 621 H Sodium 139 Potassium 4.0 Chloride 106 Carbon Dioxide 19.0 L Anion Gap 14 BUN 62 H Creatinine 2.47 H Estim Creat Clear Calc 21.96 Est GFR (MDRD) Af Amer 26 L Est GFR (MDRD) Non-Af 22 L BUN/Creatinine Ratio 25.1 H Glucose 154 H Calcium 6.9 L Phosphorus Magnesium Total Bilirubin 1.90 H AST 04513 H ALT 3831 H Alkaline Phosphatase 79 Troponin I Total Protein 5.9 L Albumin 2.0 L Globulin 3.9 Albumin/Globulin Ratio 0.5 L Urine Color Urine Clarity Urine pH Ur Specific [place] Urine Protein Urine Glucose (UA) Urine Ketones Urine Occult Blood Urine Nitrite Urine Bilirubin Urine Urobilinogen Ur Leukocyte Esterase Urine RBC Urine WBC Ur Squamous Epith Cells Ur Transition Epith Cell Ur Renal Epithelial Cell Amorphous Sediment Urine Bacteria Urine Mucus Ur Random Sodium Urine Creatinine MRSA (PCR) 06/16/18 06/17/18 06/17/18 17:55 04:45 04:45 WBC 14.3 H RBC 4.60 Hgb 13.4 Hct 40.2 MCV 87.4 MCH 29.1 MCHC 33.3 RDW 15.2 H RDW Differential 48.3 H Plt Count 178 MPV 12.2 H Immature Gran % (Auto) Neut % (Auto) Not Reportable Lymph % (Auto) Rush % (Auto) Eos % (Auto) Baso % (Auto) Absolute Neuts (auto) 12.7 H Absolute Lymphs (auto) 1.14 Total Counted 100 Neutrophils % (Manual) 87 H Band Neutrophils % 2 Lymphocytes % (Manual) 8 L Monocytes % (Manual) 2 Metamyelocytes % 1 Nucleated RBC % Differential Comment Diff Path Review May foll Atypical Lymphocytes Reactive Lymphocytes Platelet Estimate ADEQUATE RBC Morphology NORM C+C Absolute Retic PT 21.7 H INR 1.9 APTT Fibrinogen Sodium Potassium Chloride Carbon Dioxide Anion Gap BUN Creatinine Estim Creat Clear Calc Est GFR (MDRD) Af Amer Est GFR (MDRD) Non-Af BUN/Creatinine Ratio Glucose Calcium Phosphorus Magnesium Total Bilirubin AST ALT Alkaline Phosphatase Troponin I 0.175 H Total Protein Albumin Globulin Albumin/Globulin Ratio Urine Color Urine Clarity Urine pH Ur Specific [place] Urine Protein Urine Glucose (UA) Urine Ketones Urine Occult Blood Urine Nitrite Urine Bilirubin Urine Urobilinogen Ur Leukocyte Esterase Urine RBC Urine WBC Ur Squamous Epith Cells Ur Transition Epith Cell Ur Renal Epithelial Cell Amorphous Sediment Urine Bacteria Urine Mucus Ur Random Sodium Urine Creatinine MRSA (PCR) 06/17/18 04:45 WBC RBC Hgb Hct MCV MCH MCHC RDW RDW Differential Plt Count MPV Immature Gran % (Auto) Neut % (Auto) Lymph % (Auto) Rush % (Auto) Eos % (Auto) Baso % (Auto) Absolute Neuts (auto) Absolute Lymphs (auto) Total Counted Neutrophils % (Manual) Band Neutrophils % Lymphocytes % (Manual) Monocytes % (Manual) Metamyelocytes % Nucleated RBC % Differential Comment Diff Path Review Atypical Lymphocytes Reactive Lymphocytes Platelet Estimate RBC Morphology Absolute Retic PT INR APTT Fibrinogen Sodium 140 Potassium 4.0 Chloride 105 Carbon Dioxide 21.0 Anion Gap 14 BUN 74 H Creatinine 3.10 H Estim Creat Clear Calc 17.50 Est GFR (MDRD) Af Amer 20 L Est GFR (MDRD) Non-Af 17 L BUN/Creatinine Ratio 23.9 H Glucose 76 Calcium 7.0 L Phosphorus 5.8 H Magnesium 2.4 Total Bilirubin 2.20 H AST 9605 H ALT 3500 H Alkaline Phosphatase 84 Troponin I Total Protein 5.6 L Albumin 1.9 L Globulin 3.7 Albumin/Globulin Ratio 0.5 L Urine Color Urine Clarity Urine pH Ur Specific [place] Urine Protein Urine Glucose (UA) Urine Ketones Urine Occult Blood Urine Nitrite Urine Bilirubin Urine Urobilinogen Ur Leukocyte Esterase Urine RBC Urine WBC Ur Squamous Epith Cells Ur Transition Epith Cell Ur Renal Epithelial Cell Amorphous Sediment Urine Bacteria Urine Mucus Ur Random Sodium Urine Creatinine MRSA (PCR) POC Glucose 06/16/18 11:43 POC Glucose 204 H Clinical Impression(s) from Imaging Studies Chest X-Ray 06/15/18 20:40 IMPRESSION: 1. Right lower lobe airspace disease. Given distinct margin along the superior border, an air-fluid level cannot be excluded. Chest CT may be warranted. 2. Mild infiltrate in the left lung base could also represent pneumonia. Electronically Signed: Alejandro Arizmendi MD at 21:01 EST , Service support , Chest X-Ray 06/16/18 03:40 IMPRESSION: NG tube and ET tube in place with the ET tube 5.3 cm above the isai. Improving consolidations in both lower nodes Electronically Signed: Kwesi Whalen MD at 4:59 EST Tel , Service support , KUB X-Ray 06/16/18 03:40 Chest X-Ray 06/16/18 07:23 IMPRESSION: There is consolidation right midlung zone left lower lobe suspicious for pneumonia. Lines as detailed above. The NG tube could be advanced 5 cm. Electronically Signed: Carline Nieto MD at 10:02 EST Tel , Service support , Medical Necessity - Tobacco Use Smoking Status: Current every day smoker - Patient notes that she is currently smoking 2-3 cigarettes/day. Tobacco Use: Cigarettes Assessment/Plan All Active Problems Severe sepsis (Acute) Acute respiratory failure with hypoxia (Acute) Pneumonia (Acute) Atrial fibrillation with RVR (Acute) LYNNETTE (acute kidney injury) (Acute) This is a 58 years old female patient presented to the emergency room because of shortness of breath, cough and fever, found to have multilobar community-acquired pneumonia complicated by septic shock and her hospital course complicated by cardiac arrest status post CPR, A. fib with RVR, acute renal failure requiring hemodialysis as well as elevated LFTs secondary to shock liver. #1 septic shock: Patient has been off vasopressors since this morning, blood pressure is maintained. She is on IV meropenem and vancomycin as well as Tamiflu. Started on IV steroids this morning. Blood and sputum cultures are pending. She has been afebrile, white blood cell count is trending down. Kidney function has been worsening. Critical care and nephrology on the case. Plan to continue same treatment, plan for dialysis today. #2 acute bacterial/post viral multilobar community-acquired pneumonia: She is on IV meropenem and vancomycin as well as Tamiflu and started on IV steroids this morning. Blood and sputum cultures are pending. Plan to continue same treatment for now. #3 status post cardiac arrest x2: Attributed to new onset A. fib with RVR that is likely precipitated by pneumonia. Her troponin are minimally elevated. EKG revealed no acute ischemic changes. Echocardiogram is pending. Cardiology on the case. #4 acute hypoxic and hypercapnic respiratory failure: Secondary to pneumonia. She is on mechanical ventilation, failed spontaneous breathing trial this morning. Plan to continue IV antibiotics, bronchodilators, plan as above. #5 acute renal failure: Patient does have multiorgan failure secondary to septic shock. Her kidney function has been worsening, her urine output is very poor. Nephrology in the case, plan for dialysis today. #6 new onset A. fib with RVR/indeterminate troponin: She is in sinus rhythm now, blood pressure is maintained without vasopressors. Troponin is indeterminate, no acute ischemic changes on EKG. Plan as above. #7 shock liver: Secondary to septic shock. Liver transaminases as well as total bilirubin are highly elevated, start to trend down, alk phos is normal. Plan to treat underlying cause of which is the septic shock. #8 DVT prophylaxis: SCDs. This note was generated with [employer] software. It may contain incorrect words, spelling, and punctuation that were not noted in checking the note before signing. Code Visit Inpatient E&M: 52700 [facility] L[facility]
--- NOTE | 2018-06-17 09:44 | PN_ITS ---
Patient Problems: Active and Suspected Problems Severe sepsis (Acute) Acute respiratory failure with hypoxia (Acute) Pneumonia (Acute) Atrial fibrillation with RVR (Acute) LYNNETTE (acute kidney injury) (Acute) Subjective: Chief complaint: Follow-up after admission for septic shock due to community acquired pneumonia, acute hypoxic and hypercapnic respiratory failure, acute renal failure, new onset A. fib with RVR, status post cardiac arrest and shock liver. Patient seen and examined. No acute events overnight. She remained intubated, on sedation. She was taken off vasopressors this morning and blood pressure maintained. Spontaneous breathing trial this morning done and patient became severely tachypneic and hypoxemic. She is afebrile, blood pressure is maintained, heart rate stable, remained on mechanical ventilation. - Physical Exam General: - - Sedated, intubated. HEENT: Atraumatic, PERRLA, EOMI, Normocephalic Oral: Moist Mucosa, No Gingival or Mucosal Lesions/ Ulcerations Neck: Supple, No JVD, Negative Carotid Bruits, Trachea Midline, Thyroid Normal Size and Texture Lungs: No rales, Diminished, Rhonchi, Wheezes, - - Decreased breath sounds bilateral, bilateral rhonchi, occasional wheezes. Cardiovascular: Normal S1, Normal S2, No murmurs, PMI Normal, Irregular Rate Abdomen: Bowel Sounds Present, Soft, Non Tender, Non-Distended, No Hepato- splenomegaly, Obese Extremities: No clubbing, No cyanosis, Edema - Trace edema. Skin: No rashes, No breakdown Lymphatic: No Cervical, Supraclavicular, or Inguinal Adenopathy Neurological: - - Unable to assess, patient is sedated. Psych/Mental Status: - - Unable to assess, patient is sedated. Vital Signs Temp Pulse Resp BP Pulse Ox 97.8 F 84 36 H 94/68 92 06/17/18 04:00 06/17/18 07:00 06/17/18 07:00 06/17/18 07:00 06/17/18 07:00 Oxygen Flow Rate (L/min) 60 Oxygen Delivery Method Mechanical Ventilator Weight: 253 lb 4.978 oz Body Mass Index (BMI) 40.4 Intake and Output for Last 24 Hours 06/15/18 06/16/18 06/17/18 23:59 23:59 23:59 Intake Total 8180.6 / 8180.6 204 / 204 Output Total 245 / 245 40 / 40 Balance 7935.6 / 7935.6 164 / 164 Microbiology Past 72 Hours 06/16/18 08:10 Gram Stain - Final Sputum, Tracheal Aspirate 06/16/18 05:20 Gram Stain - Final Transtracheal Aspirate 06/15/18 20:45 Respiratory Panel (PCR) - Final Mucosa - Nose Influenza A (Subtype H1) 06/16/18 11:15 Legionella Antigen - Final Urine Catheter - Robertson 06/16/18 11:15 Streptococcus pneumoniae Antigen (M - Final Urine Catheter - Robertson Laboratory Tests Past 24 Hrs 06/16/18 06/16/18 06/16/18 08:25 09:10 11:15 WBC 17.4 H RBC 4.74 Hgb 13.7 Hct 42.8 MCV 90.3 MCH 28.9 MCHC 32.0 RDW 15.3 H RDW Differential 50.6 H Plt Count 104 L MPV 11.5 Immature Gran % (Auto) Neut % (Auto) Lymph % (Auto) Wood % (Auto) Eos % (Auto) Baso % (Auto) Absolute Neuts (auto) Absolute Lymphs (auto) Total Counted Neutrophils % (Manual) Band Neutrophils % Lymphocytes % (Manual) Monocytes % (Manual) Metamyelocytes % Nucleated RBC % Differential Comment Diff Path Review Atypical Lymphocytes Reactive Lymphocytes Platelet Estimate RBC Morphology Absolute Retic PT 35.6 H INR 3.5 H* APTT Fibrinogen Sodium Potassium Chloride Carbon Dioxide Anion Gap BUN Creatinine Estim Creat Clear Calc Est GFR (MDRD) Af Amer Est GFR (MDRD) Non-Af BUN/Creatinine Ratio Glucose Calcium Phosphorus Magnesium Total Bilirubin AST ALT Alkaline Phosphatase Troponin I Total Protein Albumin Globulin Albumin/Globulin Ratio Urine Color Urine Clarity Urine pH Ur Specific [place] Urine Protein Urine Glucose (UA) Urine Ketones Urine Occult Blood Urine Nitrite Urine Bilirubin Urine Urobilinogen Ur Leukocyte Esterase Urine RBC Urine WBC Ur Squamous Epith Cells Ur Transition Epith Cell Ur Renal Epithelial Cell Amorphous Sediment Urine Bacteria Urine Mucus Ur Random Sodium Urine Creatinine MRSA (PCR) Negative 06/16/18 06/16/18 06/16/18 11:15 11:15 11:15 WBC RBC Hgb Hct MCV MCH MCHC RDW RDW Differential Plt Count MPV Immature Gran % (Auto) Neut % (Auto) Lymph % (Auto) Wood % (Auto) Eos % (Auto) Baso % (Auto) Absolute Neuts (auto) Absolute Lymphs (auto) Total Counted Neutrophils % (Manual) Band Neutrophils % Lymphocytes % (Manual) Monocytes % (Manual) Metamyelocytes % Nucleated RBC % Differential Comment Diff Path Review Atypical Lymphocytes Reactive Lymphocytes Platelet Estimate RBC Morphology Absolute Retic PT INR APTT Fibrinogen Sodium 139 Potassium 4.9 Chloride 105 Carbon Dioxide 22.0 Anion Gap 12 BUN 55 H Creatinine 2.18 H Estim Creat Clear Calc 24.88 Est GFR (MDRD) Af Amer 30 L Est GFR (MDRD) Non-Af 25 L BUN/Creatinine Ratio 25.2 H Glucose 167 H Calcium 6.6 L Phosphorus Magnesium Total Bilirubin AST ALT Alkaline Phosphatase Troponin I Total Protein Albumin Globulin Albumin/Globulin Ratio Urine Color Yellow Urine Clarity Cloudy Urine pH 6.0 Ur Specific [place] 1.015 Urine Protein 500 H Urine Glucose (UA) 100 H Urine Ketones 5 H Urine Occult Blood 250 H Urine Nitrite Negative Urine Bilirubin Negative Urine Urobilinogen Normal Ur Leukocyte Esterase 25 H Urine RBC 5-10 SEEN Urine WBC 0-5 SEEN Ur Squamous Epith Cells 0 SEEN Ur Transition Epith Cell 0-5 SEEN Ur Renal Epithelial Cell 0-5 SEEN Amorphous Sediment 1+ Urine Bacteria 2+ Urine Mucus 1+ Ur Random Sodium 74 Urine Creatinine MRSA (PCR) 06/16/18 06/16/18 06/16/18 17:51 17:51 17:55 WBC RBC Hgb Hct MCV MCH MCHC RDW RDW Differential Plt Count MPV Immature Gran % (Auto) Neut % (Auto) Lymph % (Auto) Wood % (Auto) Eos % (Auto) Baso % (Auto) Absolute Neuts (auto) Absolute Lymphs (auto) Total Counted Neutrophils % (Manual) Band Neutrophils % Lymphocytes % (Manual) Monocytes % (Manual) Metamyelocytes % Nucleated RBC % Differential Comment Diff Path Review Atypical Lymphocytes Reactive Lymphocytes Platelet Estimate RBC Morphology Absolute Retic PT INR APTT 40.9 H Fibrinogen Sodium Potassium Chloride Carbon Dioxide Anion Gap BUN Creatinine Estim Creat Clear Calc Est GFR (MDRD) Af Amer Est GFR (MDRD) Non-Af BUN/Creatinine Ratio Glucose Calcium Phosphorus Magnesium Total Bilirubin AST ALT Alkaline Phosphatase Troponin I Total Protein Albumin Globulin Albumin/Globulin Ratio Urine Color Urine Clarity Urine pH Ur Specific [place] Urine Protein Urine Glucose (UA) Urine Ketones Urine Occult Blood Urine Nitrite Urine Bilirubin Urine Urobilinogen Ur Leukocyte Esterase Urine RBC Urine WBC Ur Squamous Epith Cells Ur Transition Epith Cell Ur Renal Epithelial Cell Amorphous Sediment Urine Bacteria Urine Mucus Ur Random Sodium 16 Urine Creatinine 180.00 MRSA (PCR) 06/16/18 06/16/18 06/16/18 17:55 17:55 17:55 WBC 17.5 H RBC 5.07 Hgb 14.6 Hct 44.7 MCV 88.2 MCH 28.8 MCHC 32.7 RDW 15.2 H RDW Differential 48.8 H Plt Count 143 L MPV 11.7 Immature Gran % (Auto) 1.900 H Neut % (Auto) 80.6 H Lymph % (Auto) 11.8 L Wood % (Auto) 4.4 Eos % (Auto) 0.0 Baso % (Auto) 1.3 H Absolute Neuts (auto) 14.1 H Absolute Lymphs (auto) 2.07 Total Counted Not Reportable Neutrophils % (Manual) Band Neutrophils % Lymphocytes % (Manual) Monocytes % (Manual) Metamyelocytes % Nucleated RBC % 0.3 Differential Comment SCANNED Diff Path Review May foll Atypical Lymphocytes RARE Reactive Lymphocytes RARE Platelet Estimate SLT DEC RBC Morphology Absolute Retic 0.05 PT 25.5 H INR 2.3 APTT Fibrinogen 621 H Sodium 139 Potassium 4.0 Chloride 106 Carbon Dioxide 19.0 L Anion Gap 14 BUN 62 H Creatinine 2.47 H Estim Creat Clear Calc 21.96 Est GFR (MDRD) Af Amer 26 L Est GFR (MDRD) Non-Af 22 L BUN/Creatinine Ratio 25.1 H Glucose 154 H Calcium 6.9 L Phosphorus Magnesium Total Bilirubin 1.90 H AST 32847 H ALT 3831 H Alkaline Phosphatase 79 Troponin I Total Protein 5.9 L Albumin 2.0 L Globulin 3.9 Albumin/Globulin Ratio 0.5 L Urine Color Urine Clarity Urine pH Ur Specific [place] Urine Protein Urine Glucose (UA) Urine Ketones Urine Occult Blood Urine Nitrite Urine Bilirubin Urine Urobilinogen Ur Leukocyte Esterase Urine RBC Urine WBC Ur Squamous Epith Cells Ur Transition Epith Cell Ur Renal Epithelial Cell Amorphous Sediment Urine Bacteria Urine Mucus Ur Random Sodium Urine Creatinine MRSA (PCR) 06/16/18 06/17/18 06/17/18 17:55 04:45 04:45 WBC 14.3 H RBC 4.60 Hgb 13.4 Hct 40.2 MCV 87.4 MCH 29.1 MCHC 33.3 RDW 15.2 H RDW Differential 48.3 H Plt Count 178 MPV 12.2 H Immature Gran % (Auto) Neut % (Auto) Not Reportable Lymph % (Auto) Wood % (Auto) Eos % (Auto) Baso % (Auto) Absolute Neuts (auto) 12.7 H Absolute Lymphs (auto) 1.14 Total Counted 100 Neutrophils % (Manual) 87 H Band Neutrophils % 2 Lymphocytes % (Manual) 8 L Monocytes % (Manual) 2 Metamyelocytes % 1 Nucleated RBC % Differential Comment Diff Path Review May foll Atypical Lymphocytes Reactive Lymphocytes Platelet Estimate ADEQUATE RBC Morphology NORM C+C Absolute Retic PT 21.7 H INR 1.9 APTT Fibrinogen Sodium Potassium Chloride Carbon Dioxide Anion Gap BUN Creatinine Estim Creat Clear Calc Est GFR (MDRD) Af Amer Est GFR (MDRD) Non-Af BUN/Creatinine Ratio Glucose Calcium Phosphorus Magnesium Total Bilirubin AST ALT Alkaline Phosphatase Troponin I 0.175 H Total Protein Albumin Globulin Albumin/Globulin Ratio Urine Color Urine Clarity Urine pH Ur Specific [place] Urine Protein Urine Glucose (UA) Urine Ketones Urine Occult Blood Urine Nitrite Urine Bilirubin Urine Urobilinogen Ur Leukocyte Esterase Urine RBC Urine WBC Ur Squamous Epith Cells Ur Transition Epith Cell Ur Renal Epithelial Cell Amorphous Sediment Urine Bacteria Urine Mucus Ur Random Sodium Urine Creatinine MRSA (PCR) 06/17/18 04:45 WBC RBC Hgb Hct MCV MCH MCHC RDW RDW Differential Plt Count MPV Immature Gran % (Auto) Neut % (Auto) Lymph % (Auto) Wood % (Auto) Eos % (Auto) Baso % (Auto) Absolute Neuts (auto) Absolute Lymphs (auto) Total Counted Neutrophils % (Manual) Band Neutrophils % Lymphocytes % (Manual) Monocytes % (Manual) Metamyelocytes % Nucleated RBC % Differential Comment Diff Path Review Atypical Lymphocytes Reactive Lymphocytes Platelet Estimate RBC Morphology Absolute Retic PT INR APTT Fibrinogen Sodium 140 Potassium 4.0 Chloride 105 Carbon Dioxide 21.0 Anion Gap 14 BUN 74 H Creatinine 3.10 H Estim Creat Clear Calc 17.50 Est GFR (MDRD) Af Amer 20 L Est GFR (MDRD) Non-Af 17 L BUN/Creatinine Ratio 23.9 H Glucose 76 Calcium 7.0 L Phosphorus 5.8 H Magnesium 2.4 Total Bilirubin 2.20 H AST 9605 H ALT 3500 H Alkaline Phosphatase 84 Troponin I Total Protein 5.6 L Albumin 1.9 L Globulin 3.7 Albumin/Globulin Ratio 0.5 L Urine Color Urine Clarity Urine pH Ur Specific [place] Urine Protein Urine Glucose (UA) Urine Ketones Urine Occult Blood Urine Nitrite Urine Bilirubin Urine Urobilinogen Ur Leukocyte Esterase Urine RBC Urine WBC Ur Squamous Epith Cells Ur Transition Epith Cell Ur Renal Epithelial Cell Amorphous Sediment Urine Bacteria Urine Mucus Ur Random Sodium Urine Creatinine MRSA (PCR) POC Glucose 06/16/18 11:43 POC Glucose 204 H Clinical Impression(s) from Imaging Studies Chest X-Ray 06/15/18 20:40 IMPRESSION: 1. Right lower lobe airspace disease. Given distinct margin along the superior border, an air-fluid level cannot be excluded. Chest CT may be warranted. 2. Mild infiltrate in the left lung base could also represent pneumonia. Electronically Signed: Alejandro Arizmendi MD at 21:01 EST , Service support , Chest X-Ray 06/16/18 03:40 IMPRESSION: NG tube and ET tube in place with the ET tube 5.3 cm above the isai. Improving consolidations in both lower nodes Electronically Signed: Kwesi Whalen MD at 4:59 EST Tel , Service support , KUB X-Ray 06/16/18 03:40 Chest X-Ray 06/16/18 07:23 IMPRESSION: There is consolidation right midlung zone left lower lobe suspicious for pneumonia. Lines as detailed above. The NG tube could be advanced 5 cm. Electronically Signed: Carline Nieto MD at 10:02 EST Tel , Service support , Medical Necessity - Tobacco Use Smoking Status: Current every day smoker - Patient notes that she is currently smoking 2-3 cigarettes/day. Tobacco Use: Cigarettes Assessment/Plan All Active Problems Severe sepsis (Acute) Acute respiratory failure with hypoxia (Acute) Pneumonia (Acute) Atrial fibrillation with RVR (Acute) LYNNETTE (acute kidney injury) (Acute) This is a 58 years old female patient presented to the emergency room because of shortness of breath, cough and fever, found to have multilobar community- acquired pneumonia complicated by septic shock and her hospital course complicated by cardiac arrest status post CPR, A. fib with RVR, acute renal failure requiring hemodialysis as well as elevated LFTs secondary to shock liver. #1 septic shock: Patient has been off vasopressors since this morning, blood pressure is maintained. She is on IV meropenem and vancomycin as well as Tamiflu. Started on IV steroids this morning. Blood and sputum cultures are pending. She has been afebrile, white blood cell count is trending down. Kidney function has been worsening. Critical care and nephrology on the case. Plan to continue same treatment, plan for dialysis today. #2 acute bacterial/post viral multilobar community-acquired pneumonia: She is on IV meropenem and vancomycin as well as Tamiflu and started on IV steroids this morning. Blood and sputum cultures are pending. Plan to continue same treatment for now. #3 status post cardiac arrest x2: Attributed to new onset A. fib with RVR that is likely precipitated by pneumonia. Her troponin are minimally elevated. EKG revealed no acute ischemic changes. Echocardiogram is pending. Cardiology on the case. #4 acute hypoxic and hypercapnic respiratory failure: Secondary to pneumonia. She is on mechanical ventilation, failed spontaneous breathing trial this morning. Plan to continue IV antibiotics, bronchodilators, plan as above. #5 acute renal failure: Patient does have multiorgan failure secondary to septic shock. Her kidney function has been worsening, her urine output is very poor. Nephrology in the case, plan for dialysis today. #6 new onset A. fib with RVR/indeterminate troponin: She is in sinus rhythm now, blood pressure is maintained without vasopressors. Troponin is indeterminate, no acute ischemic changes on EKG. Plan as above. #7 shock liver: Secondary to septic shock. Liver transaminases as well as total bilirubin are highly elevated, start to trend down, alk phos is normal. Plan to treat underlying cause of which is the septic shock. #8 DVT prophylaxis: SCDs. This note was generated with [employer] software. It may contain incorrect words, spelling, and punctuation that were not noted in checking the note before signing. Code Visit Inpatient E&M: 19323 [facility] Hosp L3
--- NOTE | 2018-06-17 09:51 | CASEMGMT ---
RN CM Assessment Presentation: Pneumonia, severe sepsis. Pt presented to ER with ongoing progressive dyspnea, cough, fevers, chills x 4 days. 87% on 4L NC. Bipap, cardizem gtt, and transferred to ICU. Code Blue in ICU. Intubated. Introduced role of RN CM to patient. Patient is intubated, unable to participate in RN CM Assessment. Sister and Brother are in room with pt and able to assist with questions. Care providers, pharmacy, and demographics verified. Emotional support given to brother and sister as they are upset over pt's critical condition. Both state they tried numerous times to have pt come to hospital, but pt had refused. RN CM allowed time for their concerns, questions answered, emotional support given. PCP: Dr. Kaplan Specialists: unknown Insurance: [employer] ([facility]) Preferred [facility]acy: [facility] Prescription Benefit: yes LNOK: Brother and sister Living Arrangements: Pt lives in upstairs apartment. 5 steps onto porch, then 11 steps up to her apartment. Per brother, pt's nephew and his fiance live with her. Prior to this illness, pt was independent in ADL's, and home care. Transportation: transportation through [employer]. DME: walker, no oxygen or cpap use. HHC/SNF current or past: none DC PLAN: undetermined. Mychal TORRES RN ACM
[2018-06-17] MEDS: Vancomycin IV 1,000 MG/200 ML BAG 200 MG IV (10:19)
--- NOTE | 2018-06-17 10:39 | RAD_ITS ---
STUDY: X-RAY CHEST REASON FOR EXAM: Female, 58 years old. Left central line placement. TECHNIQUE: Single AP portable view of the chest. COMPARISON: Comparison is made with prior study dated June 16, 2018. FINDINGS: An endotracheal tube with size and the tip is at 5.4 cm proximal to the isai. An orogastric tube is seen below the left hemidiaphragm. Stable appearance of the right external jugular venous catheter tip in left internal jugular venous catheter has been placed. The tip is pointing cephalad in the mid SVC. Stable right pleural effusion with a dilatation in the right thorax. Stable mild increased markings at the left lung base. RAD/CXR for Line Placement IMPRESSION: The newly placed left internal jugular venous catheter is present. The tip is heading cephalad in the mid superior vena cava. The remainder of the examination is unchanged. Electronically Signed: Philip Arriola MD at 11:30 EST , Service support ,
--- NOTE | 2018-06-17 10:41 | NURSING ---
LT IJ TLC placed by SUNSHINE Flores.
[2018-06-17] MEDS: Chlorhexidine 15 ML PO ×2 (11:24→21:12)
[2018-06-17] MEDS: CHLORHEXIDINE GLUC 2% CLOTH 1 EACH TOWELETTE TOPICAL (11:24)
[2018-06-17] MEDS: Oseltamivir Phosphate 30 MG Capsule PO (11:56)
--- NOTE | 2018-06-17 13:23 | NURSING ---
1.3ml of Heparin 1000u/1ml placed in each lumen of temporary dialysis catheter line.
--- NOTE | 2018-06-17 13:28 | RAD_ITS ---
STUDY: X-RAY CHEST REASON FOR EXAM: Female, 58 years old. Dialysis line placement TECHNIQUE: Single AP portable view of the chest. COMPARISON: June 17, 2018 chest x-ray FINDINGS: There is a right-sided internal jugular venous line the tip is in this particular. There is a left-sided internal jugular line tip is in superior vena cava. There is an endotracheal tube present 3.8 cm above the isai. An NG tube is present the tip is in the stomach. There is an opacity in the right lower lobe with a blunted appearance of the right costophrenic angle. There is increased linear density in the left lung base. There is mild cardiac enlargement. Normal mediastinum and mary. Normal visualized pulmonary arteries. Normal visualized aortic arch and descending thoracic aorta. Normal visualized thoracic spine. Normal visualized ribs, clavicles, and shoulders. There is no demonstrated abnormality of the visualized soft tissue structures of the upper abdomen. RAD/CXR for Line Placement IMPRESSION: A new right-sided internal jugular venous line is placed the tip is in the superior vena cava. There is no pneumothorax. Right greater than left lower lobe opacity suspicious for pneumonia. Potentially pleural effusion and atelectasis could have this appearance. Electronically Signed: Carline Nieto MD at 15:22 EST Tel , Service support ,
[2018-06-17] MEDS: Heparin 10,000 UNITS/10 ML Vial 1000 UNITS IV (13:37)
[2018-06-17 13:45] LABS: Pathologist Review Reviewed
[2018-06-17 13:46] LABS: Pathologist Review Reviewed
[2018-06-17 13:46] LABS: Pathologist Review Reviewed
[2018-06-17 13:47] LABS: Pathologist Review Reviewed
--- NOTE | 2018-06-17 15:26 | PCM.OPRPT ---
Report of Operation Date of Procedure: 06/17/18 - Triple-lumen catheter insertion Surgery/Procedure Performed:: Triple-lumen catheter insertion Description of Surgical Findings:: Central line placement procedure note Indication: IV access/hemodynamic instability/vasoactive medications Procedure: A time-out was completed to verify correct patient, indication, medication allergies, procedure, coagulation studies, informed consent signed, and equipment needed. The patient was placed in the supine position for a central line placement to the left IJ vein. The patients left neck was prepped using chlorhexidine and a full body sterile drape was applied. 1% lidocaine was used to anesthetize the surrounding skin. A 7fr 20 cm blue guard triple lumen catheter introduced into the internal jugular vein using the modified Seldinger technique with the assistance of ultrasound. The catheter was threaded smoothly over the guidewire, the guidewire was removed easily, nonpulsatile blood returned. All ports were aspirated of air and flushed with sterile saline. The catheter was sutured in place and covered with an occlusive dressing impregnated with chlorhexidine. Post-procedure: The patient tolerated the procedure well. Vital signs remained stable. EBL 5. No complications. Chest X Ray ordered to confirm tip placement and the absence of pneumothorax. Code Visit Procedures: [id number] Insert Non-tunnel CV Cath
--- NOTE | 2018-06-17 15:28 | PCM.OPRPT ---
Report of Operation Date of Procedure: 06/17/18 - Dialysis catheter insertion Surgery/Procedure Performed:: Temporary dialysis catheter insertion Description of Surgical Findings:: Temporary dialysis catheter placement procedure note Indication: Hemodialysis Procedure: A time-out was completed to verify correct patient, indication, medication allergies, procedure, coagulation studies, informed consent signed, and equipment needed. The patient was placed in the supine position for a central line placement to the rt IJ vein. The patients rt neck was prepped using chlorhexidine and a full body sterile drape was applied. 1% lidocaine was used to anesthetize the surrounding skin. A 12fr 20 cm temporary hemodialysis catheter introduced into the internal jugular vein over a guidewire technique. The catheter was threaded smoothly over the guidewire, the guidewire was removed easily, nonpulsatile blood returned. All ports were aspirated of air and flushed with sterile saline, then locked with U 1000 heparin 1.3 mL's to each port. The catheter was sutured in place and covered with an occlusive dressing impregnated with chlorhexidine. Post-procedure: The patient tolerated the procedure well. Vital signs remained stable. EBL 10 cc. No complications. Chest X Ray ordered to confirm tip placement and the absence of pneumothorax. Code Visit Procedures: [id number] Insert Non-tunnel CV Cath
--- NOTE | 2018-06-17 15:31 | OP.PCM_ITS ---
Report of Operation Date of Procedure: 06/17/18 - Dialysis catheter insertion Surgery/Procedure Performed:: Temporary dialysis catheter insertion Description of Surgical Findings:: Temporary dialysis catheter placement procedure note Indication: Hemodialysis Procedure: A time-out was completed to verify correct patient, indication, medication allergies, procedure, coagulation studies, informed consent signed, and equipment needed. The patient was placed in the supine position for a centra l line placement to the rt IJ vein. The patients rt neck was prepped using chlorhexidine and a full body sterile drape was applied. 1% lidocaine was used to anesthetize the surrounding skin. A 12fr 20 cm temporary hemodialysis catheter introduced into the internal jugular vein over a guidewire technique. The catheter was threaded smoothly over the guidewire, the guidewire was removed easily, nonpulsatile blood returned. All ports were aspirated of air and flushed with sterile saline, then locked with U 1000 heparin 1.3 mL's to each port. The catheter was sutured in place and covered with an occlusive dressing impregnated with chlorhexidine. Post-procedure: The patient tolerated the procedure well. Vital signs remained stable. EBL 10 cc. No complications. Chest X Ray ordered to confirm tip placement and the absence of pneumothorax. Code Visit Procedures: [id number] Insert Non-tunnel CV Cath
[2018-06-17] MEDS: Vital AF 1.2 Cal Liquid 1,000 ML 60 ML GT (18:59)
[2018-06-17] MEDS: NYSTATIN 500,000 UNIT/5 ML UDC 500000 UNIT PO ×2 (19:00→23:26)
[2018-06-17 19:36] LABS: Bedside Glucose 110 mg/dL (70-110)
[2018-06-17] MEDS: 0.9% NaCl IVPB Med Flush (250 mL) 15 ML IV (21:17)
[2018-06-17] MEDS: 0.9% NaCl Peripheral Flush Adult/Peds IV (21:41)
[2018-06-17] MEDS: fentaNYL drip 100 ML 2.5 MCG IV (21:46)
[2018-06-17 23:35] LABS: Bedside Glucose 118 mg/dL (70-110)
[2018-06-18] VITALS (54 sets, daily range): BP systolic 115–147; BP diastolic 84–110; PULSE 81–108; RESP 14–34; TEMP 36.1–38.6; O2SAT 90–97
[2018-06-18] MEDS: Heparin 10,000 UNITS/10 ML Vial 10000 UNITS IV (01:26)
--- NOTE | 2018-06-18 01:29 | DIALYSIS ---
Hemodialysis x 2 hours with 3K bath; Tolerated well. Removed = -1500; RIJ CVC poor BFR line very positional with pt breathing- high AP. RIJ CVC capped & locked with heparin per lumen fill volume. Report given to RN.
[2018-06-18 04:32] LABS: Differential Indicated MANUAL DIFF; Hematocrit 43.1 % (37-47); Hemoglobin 14.1 g/dl (12.0-15.0); Mean Corp Hgb Conc 32.7 g/gl (32-36); Mean Corpuscular Hgb 28.5 pg (27.0-32.0); Mean Corpuscular Volume 87.1 fL (81-99); Mean Platelet Vol. 11.6 fl (6.2-12.0); POSITIVE COUNT YES; POSITIVE DIFFERENTIAL NO; POSITIVE MORPHOLOGY YES; Platelet Count 220 K/mm3 (150-450); RBC Distribution Width CV 15.2 % (11.6-14.6); RBC Distribution Width SD 48.3 fl (35.1-43.9); Red Blood Count 4.95 M/mm3 (4.2-5.4); White Blood Count 12.9 K/mm3 (4.4-11.0)
[2018-06-18 04:33] LABS: Absolute Nucleated RBC Count 0.06 10^3/uL (0-5); NRBC Flagged by Analyzer 0.5 % (0-5)
[2018-06-18 04:43] LABS: BUN 89 mg/dL (7-18); BUN/Creat Ratio 19.8 RATIO (10-20); Calcium,Total 7.4 mg/dL (8.5-10.1); Chloride 105 mmol/L (98-107); EST Glomerular Filtration Rate 11 mL/min (>60); Est Glom Filt Rate - Afr Amer 13 mL/min (>60); Estimated Creatinine Clearance 12.05 ml/min; Glucose 135 mg/dL (74-106); Phosphorus 7.6 mg/dL (2.5-4.9); Potassium 4.5 mmol/L (3.5-5.1); Sodium Level 140 mmol/L (136-145)
[2018-06-18 04:57] LABS: Lymphocyte 8 % (19-41); Metamyelocyte 3 % (0-1); Monocyte 1 % (0-10); Myelocyte 2 (0-0); Neutrophil-Segmented 84 % (47-70); Plasma Cell 2 %; Platelet Estimate ADEQUATE (ADEQ); Total Cells Counted 100 (MANUAL DIFF)
[2018-06-18 04:58] LABS: Absolute Neutrophil Count 10.8 X10^3/uL (2.0-7.7); Red Cell Morphology NORM C+C NORMAL (NORM C&C)
[2018-06-18 04:59] LABS: Absolute Lymphocyte Count 1.03 X10^3/ul (0.83-4.51); Lymphocyte # 1.03 X10^3/ul (4.0)
[2018-06-18] MEDS: NYSTATIN 500,000 UNIT/5 ML UDC 500000 UNIT PO ×4 (05:39→23:20)
[2018-06-18] MEDS: 0.9% NaCl Peripheral Flush Adult/Peds IV (05:41)
[2018-06-18 05:51] LABS: Bedside Glucose 142 mg/dL (70-110)
[2018-06-18 06:21] LABS: Allen Test POS; Base Excess -9 mmol/L (-2 to +2); Bicarbonate 16.9 mmol/L (22-26); Blood Gas Specimen Type ART; FI02 40; Mode CPAP PS; O2 Delivery Device Vent; PEEP 5; PO2 69 mmHG (75-100); PS 5; SITE L Radial; SO2 93 % (95-99); Time Given 608; Total Carbon Dioxide 18 mmol/L; pCO2 31.6 mmHg (35-45); pH 7.34 (7.35-7.45)
[2018-06-18] MEDS: Ipratropium/Albuterol Sulfate 3 ML AMPUL.NEB INHALATION ×4 (06:42→18:53)
[2018-06-18 06:46] LABS: International Normalized Ratio 1.7; Prothrombin Time (Protime)PT. 19.6 SECONDS (11.7-14.9)
[2018-06-18 06:56] LABS: Protein, Total 6.2 g/dL (6.4-8.2)
[2018-06-18 06:57] LABS: AST(SGOT) 3890 U/L (15-37); Alanine Aminotransfer ALT/SGPT 2670 U/L (13-56); Alkaline Phosphatase 119 U/L (45-117); Bilirubin, Direct 1.91 mg/dL (0.00-0.30); Globulin 4.2 g/dL (2.2-4.2)
--- NOTE | 2018-06-18 07:17 | PCM.PN.INT ---
Subjective: Patient did okay overnight. She did have significant fever overnight that was treated with a cooling blanket. Patient remains tachypneic persistently. Patient did have hemodialysis yesterday with removal of 1500 cc. Blood pressure has been doing well. Patient continues to report that she wants to go home despite being intubated. General: Alert, Cooperative - Intermittently, No apparent distress, - - Fair vent synchrony. Morbidly obese. HEENT: Atraumatic, PERRLA, EOMI, Normocephalic, - - Slight scleral injection without icterus Oral: Moist Mucosa, No Gingival or Mucosal Lesions/ Ulcerations Neck: Supple, No JVD, No Nodes, - - IJ lines are clean, dry and intact. Lungs: No rales, Diminished, Rhonchi, Wheezes, - - Symmetric expansion. No dullness to percussion. Cardiovascular: Regular rate, Regular Rhythm, Normal S1, Normal S2, No murmurs, No rub noted, No Gallop Abdomen: Bowel Sounds Present, Soft, Non Tender, Non-Distended, Obese Extremities: No clubbing, No cyanosis, Capillary Refill Less than 3 Seconds, Edema Skin: - - No significant change compared to previous Musculoskeletal: No Tenderness to Palpation of Joints or Extremities Lymphatic: No Cervical, Supraclavicular, or Inguinal Adenopathy Neurological: Cranial nerves II-XII grossly intact, Neuro grossly intact Psych/Mental Status: Impulsive, Restless Vital Signs Temp Pulse Resp BP Pulse Ox 36.5 C L 81 24 H 138/102 H 95 06/18/18 06:00 06/18/18 06:44 06/18/18 06:44 06/18/18 06:00 06/18/18 06:30 Oxygen Flow Rate (L/min) 60 Oxygen Delivery Method Mechanical Ventilator Weight: 115.4 kg Body Mass Index (BMI) 40.4 Intake and Output for Last 24 Hours 06/16/18 06/17/18 06/18/18 23:59 23:59 23:59 Intake Total 8180.6 / 8180.6 1595.5 / 1595.5 715.3 / 715.3 Output Total 245 / 245 110 / 110 3010 / 3010 Balance 7935.6 / 7935.6 1485.5 / 1485.5 -2294.7 / -2294.7 Labs (Last 48 Hours) 06/16/18 06/16/18 06/16/18 03:50 03:50 06:45 WBC 21.3 H RBC 5.03 Hgb 14.6 Hct 46.0 MCV 91.5 MCH 29.0 MCHC 31.7 L RDW 15.3 H RDW Differential 51.3 H Plt Count 151 MPV 11.8 Immature Gran % (Auto) Neut % (Auto) Not Reportable Lymph % (Auto) [place] % (Auto) Eos % (Auto) Baso % (Auto) Absolute Neuts (auto) 16.0 H Absolute Lymphs (auto) 2.80 Total Counted 100 Neutrophils % (Manual) 71 H Band Neutrophils % 4 Lymphocytes % (Manual) 13 L Monocytes % (Manual) 11 H Metamyelocytes % 1 Myelocytes % Plasma Cell % (Manual) Nucleated RBC % Nucleated RBCs/100 WBC 1 Differential Comment Diff Path Review Reviewed Reviewed Atypical Lymphocytes Reactive Lymphocytes RARE Platelet Estimate ADEQUATE RBC Morphology NORM C+C Absolute Retic PT 17.7 H INR 1.5 APTT Fibrinogen Specimen Type Sample Site pH Bicarbonate Actual POC Total CO2 Base Excess O2 Saturation O2 % ABG pCO2 ABG pO2 [place] Test O2 Delivery Device Vent Mode POC PEEP POC Pressure Suppt Blood Gas Notified Whom Blood Gas Notified Time Sodium Potassium Chloride Carbon Dioxide Anion Gap BUN Creatinine Estim Creat Clear Calc Est GFR (MDRD) Af Amer Est GFR (MDRD) Non-Af BUN/Creatinine Ratio Glucose Lactic Acid Calcium Phosphorus Magnesium Total Bilirubin Direct Bilirubin AST ALT Alkaline Phosphatase Troponin I Total Protein Albumin Globulin Albumin/Globulin Ratio Free T4 Urine Color Urine Clarity Urine pH Ur Specific [place] Urine Protein Urine Glucose (UA) Urine Ketones Urine Occult Blood Urine Nitrite Urine Bilirubin Urine Urobilinogen Ur Leukocyte Esterase Urine RBC Urine WBC Ur Squamous Epith Cells Ur Transition Epith Cell Ur Renal Epithelial Cell Amorphous Sediment Urine Bacteria Urine Mucus Ur Random Sodium Urine Creatinine Hep Bs Antigen Hep Bs Antibody Hep B Core Total Ab MRSA (PCR) POC Glucose 06/16/18 06/16/18 06/16/18 06:45 06:45 06:45 WBC RBC Hgb Hct MCV MCH MCHC RDW RDW Differential Plt Count MPV Immature Gran % (Auto) Neut % (Auto) Lymph % (Auto) [place] % (Auto) Eos % (Auto) Baso % (Auto) Absolute Neuts (auto) Absolute Lymphs (auto) Total Counted Neutrophils % (Manual) Band Neutrophils % Lymphocytes % (Manual) Monocytes % (Manual) Metamyelocytes % Myelocytes % Plasma Cell % (Manual) Nucleated RBC % Nucleated RBCs/100 WBC Differential Comment Diff Path Review Atypical Lymphocytes Reactive Lymphocytes Platelet Estimate RBC Morphology Absolute Retic PT INR APTT 61.5 H Fibrinogen Specimen Type Sample Site pH Bicarbonate Actual POC Total CO2 Base Excess O2 Saturation O2 % ABG pCO2 ABG pO2 [place] Test O2 Delivery Device Vent Mode POC PEEP POC Pressure Suppt Blood Gas Notified Whom Blood Gas Notified Time Sodium 139 Potassium 5.8 H Chloride 103 Carbon Dioxide 21.0 Anion Gap 15 BUN 53 H Creatinine 2.10 H Estim Creat Clear Calc 25.83 Est GFR (MDRD) Af Amer 31 L Est GFR (MDRD) Non-Af 26 L BUN/Creatinine Ratio 25.2 H Glucose 123 H Lactic Acid Calcium 8.0 L Phosphorus 6.8 H Magnesium 3.1 H Total Bilirubin 2.00 H Direct Bilirubin AST 1922 H ALT 700 H Alkaline Phosphatase 82 Troponin I Total Protein 6.6 Albumin 2.1 L Globulin 4.5 H Albumin/Globulin Ratio 0.5 L Free T4 1.56 H Urine Color Urine Clarity Urine pH Ur Specific [place] Urine Protein Urine Glucose (UA) Urine Ketones Urine Occult Blood Urine Nitrite Urine Bilirubin Urine Urobilinogen Ur Leukocyte Esterase Urine RBC Urine WBC Ur Squamous Epith Cells Ur Transition Epith Cell Ur Renal Epithelial Cell Amorphous Sediment Urine Bacteria Urine Mucus Ur Random Sodium Urine Creatinine Hep Bs Antigen Hep Bs Antibody Hep B Core Total Ab MRSA (PCR) POC Glucose 06/16/18 06/16/18 06/16/18 08:15 08:25 08:25 WBC RBC Hgb Hct MCV MCH MCHC RDW RDW Differential Plt Count MPV Immature Gran % (Auto) Neut % (Auto) Lymph % (Auto) [place] % (Auto) Eos % (Auto) Baso % (Auto) Absolute Neuts (auto) Absolute Lymphs (auto) Total Counted Neutrophils % (Manual) Band Neutrophils % Lymphocytes % (Manual) Monocytes % (Manual) Metamyelocytes % Myelocytes % Plasma Cell % (Manual) Nucleated RBC % Nucleated RBCs/100 WBC Differential Comment Diff Path Review Atypical Lymphocytes Reactive Lymphocytes Platelet Estimate RBC Morphology Absolute Retic PT 35.6 H INR 3.5 H* APTT Fibrinogen Specimen Type Sample Site pH Bicarbonate Actual POC Total CO2 Base Excess O2 Saturation O2 % ABG pCO2 ABG pO2 [place] Test O2 Delivery Device Vent Mode POC PEEP POC Pressure Suppt Blood Gas Notified Whom Blood Gas Notified Time Sodium Potassium Chloride Carbon Dioxide Anion Gap BUN Creatinine Estim Creat Clear Calc Est GFR (MDRD) Af Amer Est GFR (MDRD) Non-Af BUN/Creatinine Ratio Glucose Lactic Acid 4.9 H* Calcium Phosphorus Magnesium Total Bilirubin Direct Bilirubin AST ALT Alkaline Phosphatase Troponin I 0.101 H Total Protein Albumin Globulin Albumin/Globulin Ratio Free T4 Urine Color Urine Clarity Urine pH Ur Specific [place] Urine Protein Urine Glucose (UA) Urine Ketones Urine Occult Blood Urine Nitrite Urine Bilirubin Urine Urobilinogen Ur Leukocyte Esterase Urine RBC Urine WBC Ur Squamous Epith Cells Ur Transition Epith Cell Ur Renal Epithelial Cell Amorphous Sediment Urine Bacteria Urine Mucus Ur Random Sodium Urine Creatinine Hep Bs Antigen Hep Bs Antibody Hep B Core Total Ab MRSA (PCR) POC Glucose 06/16/18 06/16/18 06/16/18 09:10 11:15 11:15 WBC 17.4 H RBC 4.74 Hgb 13.7 Hct 42.8 MCV 90.3 MCH 28.9 MCHC 32.0 RDW 15.3 H RDW Differential 50.6 H Plt Count 104 L MPV 11.5 Immature Gran % (Auto) Neut % (Auto) Lymph % (Auto) [place] % (Auto) Eos % (Auto) Baso % (Auto) Absolute Neuts (auto) Absolute Lymphs (auto) Total Counted Neutrophils % (Manual) Band Neutrophils % Lymphocytes % (Manual) Monocytes % (Manual) Metamyelocytes % Myelocytes % Plasma Cell % (Manual) Nucleated RBC % Nucleated RBCs/100 WBC Differential Comment Diff Path Review Atypical Lymphocytes Reactive Lymphocytes Platelet Estimate RBC Morphology Absolute Retic PT INR APTT Fibrinogen Specimen Type Sample Site pH Bicarbonate Actual POC Total CO2 Base Excess O2 Saturation O2 % ABG pCO2 ABG pO2 [place] Test O2 Delivery Device Vent Mode POC PEEP POC Pressure Suppt Blood Gas Notified Whom Blood Gas Notified Time Sodium 139 Potassium 4.9 Chloride 105 Carbon Dioxide 22.0 Anion Gap 12 BUN 55 H Creatinine 2.18 H Estim Creat Clear Calc 24.88 Est GFR (MDRD) Af Amer 30 L Est GFR (MDRD) Non-Af 25 L BUN/Creatinine Ratio 25.2 H Glucose 167 H Lactic Acid Calcium 6.6 L Phosphorus Magnesium Total Bilirubin Direct Bilirubin AST ALT Alkaline Phosphatase Troponin I Total Protein Albumin Globulin Albumin/Globulin Ratio Free T4 Urine Color Urine Clarity Urine pH Ur Specific [place] Urine Protein Urine Glucose (UA) Urine Ketones Urine Occult Blood Urine Nitrite Urine Bilirubin Urine Urobilinogen Ur Leukocyte Esterase Urine RBC Urine WBC Ur Squamous Epith Cells Ur Transition Epith Cell Ur Renal Epithelial Cell Amorphous Sediment Urine Bacteria Urine Mucus Ur Random Sodium Urine Creatinine Hep Bs Antigen Hep Bs Antibody Hep B Core Total Ab MRSA (PCR) Negative POC Glucose 06/16/18 06/16/18 06/16/18 11:15 11:15 11:43 WBC RBC Hgb Hct MCV MCH MCHC RDW RDW Differential Plt Count MPV Immature Gran % (Auto) Neut % (Auto) Lymph % (Auto) [place] % (Auto) Eos % (Auto) Baso % (Auto) Absolute Neuts (auto) Absolute Lymphs (auto) Total Counted Neutrophils % (Manual) Band Neutrophils % Lymphocytes % (Manual) Monocytes % (Manual) Metamyelocytes % Myelocytes % Plasma Cell % (Manual) Nucleated RBC % Nucleated RBCs/100 WBC Differential Comment Diff Path Review Atypical Lymphocytes Reactive Lymphocytes Platelet Estimate RBC Morphology Absolute Retic PT INR APTT Fibrinogen Specimen Type Sample Site pH Bicarbonate Actual POC Total CO2 Base Excess O2 Saturation O2 % ABG pCO2 ABG pO2 [place] Test O2 Delivery Device Vent Mode POC PEEP POC Pressure Suppt Blood Gas Notified Whom Blood Gas Notified Time Sodium Potassium Chloride Carbon Dioxide Anion Gap BUN Creatinine Estim Creat Clear Calc Est GFR (MDRD) Af Amer Est GFR (MDRD) Non-Af BUN/Creatinine Ratio Glucose Lactic Acid Calcium Phosphorus Magnesium Total Bilirubin Direct Bilirubin AST ALT Alkaline Phosphatase Troponin I Total Protein Albumin Globulin Albumin/Globulin Ratio Free T4 Urine Color Yellow Urine Clarity Cloudy Urine pH 6.0 Ur Specific [place] 1.015 Urine Protein 500 H Urine Glucose (UA) 100 H Urine Ketones 5 H Urine Occult Blood 250 H Urine Nitrite Negative Urine Bilirubin Negative Urine Urobilinogen Normal Ur Leukocyte Esterase 25 H Urine RBC 5-10 SEEN Urine WBC 0-5 SEEN Ur Squamous Epith Cells 0 SEEN Ur Transition Epith Cell 0-5 SEEN Ur Renal Epithelial Cell 0-5 SEEN Amorphous Sediment 1+ Urine Bacteria 2+ Urine Mucus 1+ Ur Random Sodium 74 Urine Creatinine Hep Bs Antigen Hep Bs Antibody Hep B Core Total Ab MRSA (PCR) POC Glucose 204 H 06/16/18 06/16/18 06/16/18 17:51 17:51 17:55 WBC RBC Hgb Hct MCV MCH MCHC RDW RDW Differential Plt Count MPV Immature Gran % (Auto) Neut % (Auto) Lymph % (Auto) [place] % (Auto) Eos % (Auto) Baso % (Auto) Absolute Neuts (auto) Absolute Lymphs (auto) Total Counted Neutrophils % (Manual) Band Neutrophils % Lymphocytes % (Manual) Monocytes % (Manual) Metamyelocytes % Myelocytes % Plasma Cell % (Manual) Nucleated RBC % Nucleated RBCs/100 WBC Differential Comment Diff Path Review Atypical Lymphocytes Reactive Lymphocytes Platelet Estimate RBC Morphology Absolute Retic PT INR APTT 40.9 H Fibrinogen Specimen Type Sample Site pH Bicarbonate Actual POC Total CO2 Base Excess O2 Saturation O2 % ABG pCO2 ABG pO2 [place] Test O2 Delivery Device Vent Mode POC PEEP POC Pressure Suppt Blood Gas Notified Whom Blood Gas Notified Time Sodium Potassium Chloride Carbon Dioxide Anion Gap BUN Creatinine Estim Creat Clear Calc Est GFR (MDRD) Af Amer Est GFR (MDRD) Non-Af BUN/Creatinine Ratio Glucose Lactic Acid Calcium Phosphorus Magnesium Total Bilirubin Direct Bilirubin AST ALT Alkaline Phosphatase Troponin I Total Protein Albumin Globulin Albumin/Globulin Ratio Free T4 Urine Color Urine Clarity Urine pH Ur Specific [place] Urine Protein Urine Glucose (UA) Urine Ketones Urine Occult Blood Urine Nitrite Urine Bilirubin Urine Urobilinogen Ur Leukocyte Esterase Urine RBC Urine WBC Ur Squamous Epith Cells Ur Transition Epith Cell Ur Renal Epithelial Cell Amorphous Sediment Urine Bacteria Urine Mucus Ur Random Sodium 16 Urine Creatinine 180.00 Hep Bs Antigen Hep Bs Antibody Hep B Core Total Ab MRSA (PCR) POC Glucose 06/16/18 06/16/18 06/16/18 17:55 17:55 17:55 WBC 17.5 H RBC 5.07 Hgb 14.6 Hct 44.7 MCV 88.2 MCH 28.8 MCHC 32.7 RDW 15.2 H RDW Differential 48.8 H Plt Count 143 L MPV 11.7 Immature Gran % (Auto) 1.900 H Neut % (Auto) 80.6 H Lymph % (Auto) 11.8 L [place] % (Auto) 4.4 Eos % (Auto) 0.0 Baso % (Auto) 1.3 H Absolute Neuts (auto) 14.1 H Absolute Lymphs (auto) 2.07 Total Counted Not Reportable Neutrophils % (Manual) Band Neutrophils % Lymphocytes % (Manual) Monocytes % (Manual) Metamyelocytes % Myelocytes % Plasma Cell % (Manual) Nucleated RBC % 0.3 Nucleated RBCs/100 WBC Differential Comment SCANNED Diff Path Review Reviewed Atypical Lymphocytes RARE Reactive Lymphocytes RARE Platelet Estimate SLT DEC RBC Morphology Absolute Retic 0.05 PT 25.5 H INR 2.3 APTT Fibrinogen 621 H Specimen Type Sample Site pH Bicarbonate Actual POC Total CO2 Base Excess O2 Saturation O2 % ABG pCO2 ABG pO2 [place] Test O2 Delivery Device Vent Mode POC PEEP POC Pressure Suppt Blood Gas Notified Whom Blood Gas Notified Time Sodium 139 Potassium 4.0 Chloride 106 Carbon Dioxide 19.0 L Anion Gap 14 BUN 62 H Creatinine 2.47 H Estim Creat Clear Calc 21.96 Est GFR (MDRD) Af Amer 26 L Est GFR (MDRD) Non-Af 22 L BUN/Creatinine Ratio 25.1 H Glucose 154 H Lactic Acid Calcium 6.9 L Phosphorus Magnesium Total Bilirubin 1.90 H Direct Bilirubin AST 08646 H ALT 3831 H Alkaline Phosphatase 79 Troponin I Total Protein 5.9 L Albumin 2.0 L Globulin 3.9 Albumin/Globulin Ratio 0.5 L Free T4 Urine Color Urine Clarity Urine pH Ur Specific [place] Urine Protein Urine Glucose (UA) Urine Ketones Urine Occult Blood Urine Nitrite Urine Bilirubin Urine Urobilinogen Ur Leukocyte Esterase Urine RBC Urine WBC Ur Squamous Epith Cells Ur Transition Epith Cell Ur Renal Epithelial Cell Amorphous Sediment Urine Bacteria Urine Mucus Ur Random Sodium Urine Creatinine Hep Bs Antigen Hep Bs Antibody Hep B Core Total Ab MRSA (PCR) POC Glucose 06/16/18 06/17/18 06/17/18 17:55 04:45 04:45 WBC 14.3 H RBC 4.60 Hgb 13.4 Hct 40.2 MCV 87.4 MCH 29.1 MCHC 33.3 RDW 15.2 H RDW Differential 48.3 H Plt Count 178 MPV 12.2 H Immature Gran % (Auto) Neut % (Auto) Not Reportable Lymph % (Auto) [place] % (Auto) Eos % (Auto) Baso % (Auto) Absolute Neuts (auto) 12.7 H Absolute Lymphs (auto) 1.14 Total Counted 100 Neutrophils % (Manual) 87 H Band Neutrophils % 2 Lymphocytes % (Manual) 8 L Monocytes % (Manual) 2 Metamyelocytes % 1 Myelocytes % Plasma Cell % (Manual) Nucleated RBC % Nucleated RBCs/100 WBC Differential Comment Diff Path Review Reviewed Atypical Lymphocytes Reactive Lymphocytes Platelet Estimate ADEQUATE RBC Morphology NORM C+C Absolute Retic PT 21.7 H INR 1.9 APTT Fibrinogen Specimen Type Sample Site pH Bicarbonate Actual POC Total CO2 Base Excess O2 Saturation O2 % ABG pCO2 ABG pO2 [place] Test O2 Delivery Device Vent Mode POC PEEP POC Pressure Suppt Blood Gas Notified Whom Blood Gas Notified Time Sodium Potassium Chloride Carbon Dioxide Anion Gap BUN Creatinine Estim Creat Clear Calc Est GFR (MDRD) Af Amer Est GFR (MDRD) Non-Af BUN/Creatinine Ratio Glucose Lactic Acid Calcium Phosphorus Magnesium Total Bilirubin Direct Bilirubin AST ALT Alkaline Phosphatase Troponin I 0.175 H Total Protein Albumin Globulin Albumin/Globulin Ratio Free T4 Urine Color Urine Clarity Urine pH Ur Specific [place] Urine Protein Urine Glucose (UA) Urine Ketones Urine Occult Blood Urine Nitrite Urine Bilirubin Urine Urobilinogen Ur Leukocyte Esterase Urine RBC Urine WBC Ur Squamous Epith Cells Ur Transition Epith Cell Ur Renal Epithelial Cell Amorphous Sediment Urine Bacteria Urine Mucus Ur Random Sodium Urine Creatinine Hep Bs Antigen Hep Bs Antibody Hep B Core Total Ab MRSA (PCR) POC Glucose 06/17/18 06/17/18 06/17/18 04:45 18:54 23:24 WBC RBC Hgb Hct MCV MCH MCHC RDW RDW Differential Plt Count MPV Immature Gran % (Auto) Neut % (Auto) Lymph % (Auto) [place] % (Auto) Eos % (Auto) Baso % (Auto) Absolute Neuts (auto) Absolute Lymphs (auto) Total Counted Neutrophils % (Manual) Band Neutrophils % Lymphocytes % (Manual) Monocytes % (Manual) Metamyelocytes % Myelocytes % Plasma Cell % (Manual) Nucleated RBC % Nucleated RBCs/100 WBC Differential Comment Diff Path Review Atypical Lymphocytes Reactive Lymphocytes Platelet Estimate RBC Morphology Absolute Retic PT INR APTT Fibrinogen Specimen Type Sample Site pH Bicarbonate Actual POC Total CO2 Base Excess O2 Saturation O2 % ABG pCO2 ABG pO2 [place] Test O2 Delivery Device Vent Mode POC PEEP POC Pressure Suppt Blood Gas Notified Whom Blood Gas Notified Time Sodium 140 Potassium 4.0 Chloride 105 Carbon Dioxide 21.0 Anion Gap 14 BUN 74 H Creatinine 3.10 H Estim Creat Clear Calc 17.50 Est GFR (MDRD) Af Amer 20 L Est GFR (MDRD) Non-Af 17 L BUN/Creatinine Ratio 23.9 H Glucose 76 Lactic Acid Calcium 7.0 L Phosphorus 5.8 H Magnesium 2.4 Total Bilirubin 2.20 H Direct Bilirubin AST 9605 H ALT 3500 H Alkaline Phosphatase 84 Troponin I Total Protein 5.6 L Albumin 1.9 L Globulin 3.7 Albumin/Globulin Ratio 0.5 L Free T4 Urine Color Urine Clarity Urine pH Ur Specific [place] Urine Protein Urine Glucose (UA) Urine Ketones Urine Occult Blood Urine Nitrite Urine Bilirubin Urine Urobilinogen Ur Leukocyte Esterase Urine RBC Urine WBC Ur Squamous Epith Cells Ur Transition Epith Cell Ur Renal Epithelial Cell Amorphous Sediment Urine Bacteria Urine Mucus Ur Random Sodium Urine Creatinine Hep Bs Antigen Hep Bs Antibody Hep B Core Total Ab MRSA (PCR) POC Glucose 110 118 H 06/17/18 06/17/18 06/18/18 23:30 23:30 04:10 WBC 12.9 H RBC 4.95 Hgb 14.1 Hct 43.1 MCV 87.1 MCH 28.5 MCHC 32.7 RDW 15.2 H RDW Differential 48.3 H Plt Count 220 MPV 11.6 Immature Gran % (Auto) Neut % (Auto) Not Reportable Lymph % (Auto) [place] % (Auto) Eos % (Auto) Baso % (Auto) Absolute Neuts (auto) 10.8 H Absolute Lymphs (auto) 1.03 Total Counted 100 Neutrophils % (Manual) 84 H Band Neutrophils % Lymphocytes % (Manual) 8 L Monocytes % (Manual) 1 Metamyelocytes % 3 H Myelocytes % 2 H Plasma Cell % (Manual) 2 Nucleated RBC % 0.5 Nucleated RBCs/100 WBC Differential Comment Diff Path Review May foll Atypical Lymphocytes Reactive Lymphocytes Platelet Estimate ADEQUATE RBC Morphology NORM C+C Absolute Retic 0.06 PT INR APTT Fibrinogen Specimen Type Sample Site pH Bicarbonate Actual POC Total CO2 Base Excess O2 Saturation O2 % ABG pCO2 ABG pO2 [place] Test O2 Delivery Device Vent Mode POC PEEP POC Pressure Suppt Blood Gas Notified Whom Blood Gas Notified Time Sodium Potassium Chloride Carbon Dioxide Anion Gap BUN Creatinine Estim Creat Clear Calc Est GFR (MDRD) Af Amer Est GFR (MDRD) Non-Af BUN/Creatinine Ratio Glucose Lactic Acid Calcium Phosphorus Magnesium Total Bilirubin Direct Bilirubin AST ALT Alkaline Phosphatase Troponin I Total Protein Albumin Globulin Albumin/Globulin Ratio Free T4 Urine Color Urine Clarity Urine pH Ur Specific [place] Urine Protein Urine Glucose (UA) Urine Ketones Urine Occult Blood Urine Nitrite Urine Bilirubin Urine Urobilinogen Ur Leukocyte Esterase Urine RBC Urine WBC Ur Squamous Epith Cells Ur Transition Epith Cell Ur Renal Epithelial Cell Amorphous Sediment Urine Bacteria Urine Mucus Ur Random Sodium Urine Creatinine Hep Bs Antigen Pending Hep Bs Antibody Pending Hep B Core Total Ab Pending MRSA (PCR) POC Glucose 06/18/18 06/18/18 06/18/18 04:10 04:10 05:37 WBC RBC Hgb Hct MCV MCH MCHC RDW RDW Differential Plt Count MPV Immature Gran % (Auto) Neut % (Auto) Lymph % (Auto) [place] % (Auto) Eos % (Auto) Baso % (Auto) Absolute Neuts (auto) Absolute Lymphs (auto) Total Counted Neutrophils % (Manual) Band Neutrophils % Lymphocytes % (Manual) Monocytes % (Manual) Metamyelocytes % Myelocytes % Plasma Cell % (Manual) Nucleated RBC % Nucleated RBCs/100 WBC Differential Comment Diff Path Review Atypical Lymphocytes Reactive Lymphocytes Platelet Estimate RBC Morphology Absolute Retic PT INR APTT Fibrinogen Specimen Type Sample Site pH Bicarbonate Actual POC Total CO2 Base Excess O2 Saturation O2 % ABG pCO2 ABG pO2 [place] Test O2 Delivery Device Vent Mode POC PEEP POC Pressure Suppt Blood Gas Notified Whom Blood Gas Notified Time Sodium 140 Potassium 4.5 Chloride 105 Carbon Dioxide 21.0 Anion Gap BUN 89 H Creatinine 4.50 H Estim Creat Clear Calc 12.05 Est GFR (MDRD) Af Amer 13 L Est GFR (MDRD) Non-Af 11 L BUN/Creatinine Ratio 19.8 Glucose 135 H Lactic Acid Calcium 7.4 L Phosphorus 7.6 H Magnesium Total Bilirubin 2.80 H Direct Bilirubin 1.91 H AST 3890 H ALT 2670 H Alkaline Phosphatase 119 H Troponin I Total Protein 6.2 L Albumin 2.0 L 2.0 L Globulin 4.2 Albumin/Globulin Ratio Free T4 Urine Color Urine Clarity Urine pH Ur Specific [place] Urine Protein Urine Glucose (UA) Urine Ketones Urine Occult Blood Urine Nitrite Urine Bilirubin Urine Urobilinogen Ur Leukocyte Esterase Urine RBC Urine WBC Ur Squamous Epith Cells Ur Transition Epith Cell Ur Renal Epithelial Cell Amorphous Sediment Urine Bacteria Urine Mucus Ur Random Sodium Urine Creatinine Hep Bs Antigen Hep Bs Antibody Hep B Core Total Ab MRSA (PCR) POC Glucose 142 H 06/18/18 06/18/18 06:10 06:15 WBC RBC Hgb Hct MCV MCH MCHC RDW RDW Differential Plt Count MPV Immature Gran % (Auto) Neut % (Auto) Lymph % (Auto) [place] % (Auto) Eos % (Auto) Baso % (Auto) Absolute Neuts (auto) Absolute Lymphs (auto) Total Counted Neutrophils % (Manual) Band Neutrophils % Lymphocytes % (Manual) Monocytes % (Manual) Metamyelocytes % Myelocytes % Plasma Cell % (Manual) Nucleated RBC % Nucleated RBCs/100 WBC Differential Comment Diff Path Review Atypical Lymphocytes Reactive Lymphocytes Platelet Estimate RBC Morphology Absolute Retic PT 19.6 H INR 1.7 APTT Fibrinogen Specimen Type ART Sample Site L Radial pH 7.34 L Bicarbonate Actual 16.9 L POC Total CO2 18 Base Excess -9 L O2 Saturation 93 L O2 % 40 ABG pCO2 31.6 L ABG pO2 69 L [place] Test POS O2 Delivery Device Vent Vent Mode CPAP PS POC PEEP 5 POC Pressure Suppt 5 Blood Gas Notified Whom ICU Blood Gas Notified Time 608 Sodium Potassium Chloride Carbon Dioxide Anion Gap BUN Creatinine Estim Creat Clear Calc Est GFR (MDRD) Af Amer Est GFR (MDRD) Non-Af BUN/Creatinine Ratio Glucose Lactic Acid Calcium Phosphorus Magnesium Total Bilirubin Direct Bilirubin AST ALT Alkaline Phosphatase Troponin I Total Protein Albumin Globulin Albumin/Globulin Ratio Free T4 Urine Color Urine Clarity Urine pH Ur Specific [place] Urine Protein Urine Glucose (UA) Urine Ketones Urine Occult Blood Urine Nitrite Urine Bilirubin Urine Urobilinogen Ur Leukocyte Esterase Urine RBC Urine WBC Ur Squamous Epith Cells Ur Transition Epith Cell Ur Renal Epithelial Cell Amorphous Sediment Urine Bacteria Urine Mucus Ur Random Sodium Urine Creatinine Hep Bs Antigen Hep Bs Antibody Hep B Core Total Ab MRSA (PCR) POC Glucose Microbiology 06/16/18 08:10 Sputum, Tracheal Aspirate Gram Stain - Final 06/16/18 08:10 Sputum, Tracheal Aspirate Respiratory Culture - Preliminary Appears to be normal respiratory shu. Further studies to follow. 06/16/18 05:20 Transtracheal Aspirate Gram Stain - Final 06/16/18 05:20 Transtracheal Aspirate Respiratory Culture - Preliminary Alpha Hemolytic Streptococcus 06/15/18 20:45 Mucosa - Nose Respiratory Panel (PCR) - Final Influenza A (Subtype H1) 06/16/18 11:15 Urine Catheter - [place] Legionella Antigen - Final 06/16/18 11:15 Urine Catheter - [place] Streptococcus pneumoniae Antigen (M - Final Clinical Impression(s) from Imaging Studies Chest X-Ray 06/17/18 10:39 IMPRESSION: The newly placed left internal jugular venous catheter is present. The tip is heading cephalad in the mid superior vena cava. The remainder of the examination is unchanged. Electronically Signed: Philip Arriola MD at 11:30 EST , Service support , Chest X-Ray 02/18/19 13:28 IMPRESSION: A new right-sided internal jugular venous line is placed the tip is in the superior vena cava. There is no pneumothorax. Right greater than left lower lobe opacity suspicious for pneumonia. Potentially pleural effusion and atelectasis could have this appearance. Electronically Signed: Carline Nieto MD at 15:22 EST Tel , Service support , Medical Necessity - Tobacco Use Smoking Status: Current every day smoker - Patient notes that she is currently smoking 2-3 cigarettes/day. Tobacco Use: Cigarettes Assessment/Plan All Active Problems Severe sepsis (Acute) Acute respiratory failure with hypoxia (Acute) Pneumonia (Acute) Atrial fibrillation with RVR (Acute) LYNNETTE (acute kidney injury) (Acute) RECOMMENDATIONS: 1. Continue tube feeds to goal 2. Transition to Precedex therapy for sedation, fentanyl drip for pain 3. Continuation of empiric steroid therapy, will need to watch blood sugars closely 4. Allow for permissive hypertension to facilitate hemodialysis 5. Continue Tamiflu. Continue broad antibiotics until culture negative 6. Continue bronchodilators IMPRESSIONS: 1. Septic shock with multiorgan system dysfunction secondary to severe community-acquired pneumonia Patient influenza A positive. Patient was originally requiring 3 separate pressors to maintain adequate blood pressure. This may have been complicated by underlying rate control for A. fib. Patient currently off of all pressor therapy. We will continue to monitor. Cannot exclude a superinfection with MRSA, so broad-spectrum antibiotics will be continued until cultures are negative. Significant infiltrate noted on chest x-ray. 2. Acute hypoxemic and hypercarbic respiratory failure As noted above, clinical concern for severe community-acquired pneumonia. In addition, the patient's brother does have a history of unprovoked venous thromboembolic disease, raising the suspicion for PE as a potential contribution to the patient's decompensation. DVT scan was negative yesterday, so PE is unlikely given positive influenza. Patient is on DVT prophylaxis only. Patient will be kept on a ventilator as PO2 was only marginal on 40% FiO2 and patient does have a history of noncompliance with BiPAP therapy. Steroids will also require another 24-48 hours to get to full strength and affect. 3. New onset atrial fibrillation with rapid ventricular response/troponin elevation/cardiopulmonary arrest Although the patient presented to the hospital with new onset atrial fibrillation, her cardiac arrest was most likely precipitated by hypoxemia. She has been stabilized at this point. The patient converted to normal sinus rhythm overnight following administration of amiodarone, which has been discontinued at this time. We will continue current supportive measures as noted above. Echocardiogram is showing an EF of 40%. Troponins are relatively unimpressive given patient's clinical course. Cardiology is following. 4. Acute kidney injury/shock liver Shock liver appears to be improving. However, patient's creatinine is significantly elevated despite receiving hemodialysis overnight. Patient continues to have marginal urine output. Defer to nephrology, but anticipate hemodialysis again today. 5. Metabolic encephalopathy Likely secondary to increased metabolic demands in the setting of #1 coupled with hypercarbia. Despite having gone into cardiac arrest on 2 separate occasions during this hospitalization, the patient's mentation appears to be intact. Continue current supportive measures as noted above. 6. Unknown medical history/morbid obesity/tobacco dependency Complicates care, management, recovery and prognosis. Nicotine replacement therapy can be considered once the patient is deemed to be stabilized clinically. Okay to initiate tube feeds. TIME: 42 minutes of critical care time was spent addressing the patient's septic shock, multiorgan system dysfunction, severe community-acquired pneumonia, acute respiratory failure, new onset atrial fibrillation, cardiac arrest, acute kidney injury, shock liver, metabolic encephalopathy, review of all data and collaboration with the care team. (5:45 AM to 6:45 AM) Code Visit [id number]: [id number] Critical care first hour
--- NOTE | 2018-06-18 08:12 | PN.CARD_ITS ---
Subjectve: Patient seen and evaluated. Still ventilated. Objective: Vital Signs Temp Pulse Resp BP Pulse Ox 98.0 F 86 26 H 134/100 H 94 06/18/18 07:00 06/18/18 07:00 06/18/18 07:00 06/18/18 07:00 06/18/18 07:00 Oxygen Flow Rate (L/min) 60 Oxygen Delivery Method Mechanical Ventilator Weight: 254 lb 6.615 oz Body Mass Index (BMI) 40.4 Intake and Output for Last 24 Hours 06/16/18 06/17/18 06/18/18 23:59 23:59 23:59 Intake Total 8180.6 / 8180.6 1595.5 / 1595.5 715.3 / 715.3 Output Total 245 / 245 110 / 110 3010 / 3010 Balance 7935.6 / 7935.6 1485.5 / 1485.5 -2294.7 / -2294.7 General: Ill Appearing HEENT: PERRL, EOMI, Sclera Non Icteric Neck: Supple, Good ROM, No Lymph Node Enlargement Lungs: Clear to auscultation Cardiovascular: Regular Rhythm, Normal S1, Normal S2, No Murmurs, No Rubs, No Gallops Vascular: No Carotid Bruits, Normal Femoral Pulses, Normal Radial Pulses, Normal Dorsalis Pedal Pulse, Normal Posterior Tibial Pulses Abdomen: Bowel Sounds Present, Soft, Non Tender, No HSM, No Organomegaly Extremities: No Cyanosis, No Clubbing, No edema Neurological: No Focal Motor or Sensory Deficit Psych/Mental Status: Appropriate 06/18/18 04:10: WBC 12.9 H, RBC 4.95, Hgb 14.1, Hct 43.1, MCV 87.1, MCH 28.5, MCHC 32.7, RDW 15.2 H, RDW Differential 48.3 H, Plt Count 220, MPV 11.6, Neut % (Auto) Not Reportable, Absolute Neuts (auto) 10.8 H, Total Counted 100, Neutrophils % (Manual) 84 H, Lymphocytes % (Manual) 8 L, Monocytes % (Manual) 1, Metamyelocytes % 3 H, Myelocytes % 2 H, Plasma Cell % (Manual) 2, Nucleated RBC % 0.5 06/18/18 04:10: Sodium 140, Potassium 4.5, Chloride 105, Carbon Dioxide 21.0, BUN 89 H, Creatinine 4.50 H, Est GFR (MDRD) Af Amer 13 L, Est GFR (MDRD) Non-Af 11 L, BUN/Creatinine Ratio 19.8, Glucose 135 H, Calcium 7.4 L, Phosphorus 7.6 H 06/18/18 04:10: Total Bilirubin 2.80 H, Direct Bilirubin 1.91 H 06/18/18 06:10: PT 19.6 H, INR 1.7 06/18/18 06:15: pH 7.34 L, Bicarbonate Actual 16.9 L, POC Total CO2 18, Base Excess -9 L, O2 Saturation 93 L, ABG pCO2 31.6 L, ABG pO2 69 L, [place] Test POS Rhythm: EKG: ECHO: Stress Test: Cardiac Cath: PCI: CT Surgery: Holter monitor: EPS: PPM: CXR: Chest CT Scan: Medical Necessity - Tobacco Use Smoking Status: Current every day smoker - Patient notes that she is currently smoking 2-3 cigarettes/day. Tobacco Use: Cigarettes Assessment/Plan 1. Atrial fibrillation * Patient presented with atrial fibrillation likely secondary to her lung condition. With her pneumonia. The above appears to have been transient and currently patient is maintaining sinus rhythm. * Echocardiogram done demonstrated mild to moderately globally reduced left ventricular systolic function. * I do not think that long-term anticoagulation is warranted at this time. * 2. Cardiopulmonary arrest * I suspect the above is on the basis of severe hypoxia as well as the bradycardia arrhythmia secondary to the beta-moris that the patient was receiving. * That appears to have resolved and currently patient is on supportive management with three-vasoactive agents. We will try and titrate to maintain a mean arterial pressure of 65 mmHg. 3. Lung consolidation * I suspect the above is on the basis of an infection and not a pulmonary embolism with pulmonary infarction. * * 4. Abnormal cardiac enzymes * Above is likely secondary to demand ischemia. * No further workup at this time 5. Acute renal insufficiency * The above is likely secondary to her septic state, hypotension and poor perfusion likely on an underlying baseline renal dysfunction. * Above discussed with hospitalist and director of land acquisition. * We will continue to follow with you. * *
--- NOTE | 2018-06-18 09:57 | PN_ITS ---
Patient Problems: Active and Suspected Problems Severe sepsis (Acute) Acute respiratory failure with hypoxia (Acute) Pneumonia (Acute) Atrial fibrillation with RVR (Acute) LYNNETTE (acute kidney injury) (Acute) Subjective: Chief complaint: Follow-up after admission for septic shock due to community acquired pneumonia, acute hypoxic and hypercapnic respiratory failure, acute renal failure, new onset A. fib with RVR, status post cardiac arrest and shock liver.\ Patient seen and examined. Overnight, she had high-grade fever treated with cooling blanket because she cannot have Tylenol because of shock liver. She underwent hemodialysis yesterday. At this time, she is alert and awake, responding appropriate to commands. She denied chest pain or abdominal pain. At this time, she is afebrile, blood pressure and heart rate are stable, remained on mechanical ventilation. - Physical Exam General: Alert, Cooperative, - - Distressed because of the ETT. HEENT: Atraumatic, PERRLA, EOMI, Normocephalic Oral: Moist Mucosa, No Gingival or Mucosal Lesions/ Ulcerations Neck: Supple, No JVD, Negative Carotid Bruits, Trachea Midline, Thyroid Normal Size and Texture Lungs: No rales, Diminished, Rhonchi, Short of Breath, Wheezes Cardiovascular: Regular rate, Regular Rhythm, Normal S1, Normal S2, PMI Normal Abdomen: Bowel Sounds Present, Soft, Non Tender, Non-Distended, No Hepato- splenomegaly, Obese Extremities: No clubbing, No cyanosis, No edema Skin: No rashes, No breakdown Lymphatic: No Cervical, Supraclavicular, or Inguinal Adenopathy Neurological: Cranial nerves II-XII grossly intact, Neuro grossly intact Psych/Mental Status: Agitated, Restless Vital Signs Temp Pulse Resp BP Pulse Ox 98.1 F 88 28 H 139/100 H 93 06/18/18 08:00 06/18/18 09:15 06/18/18 09:15 06/18/18 08:00 06/18/18 09:15 Oxygen Flow Rate (L/min) 60 Oxygen Delivery Method Mechanical Ventilator Weight: 254 lb 6.615 oz Body Mass Index (BMI) 40.4 Intake and Output for Last 24 Hours 06/16/18 06/17/18 06/18/18 23:59 23:59 23:59 Intake Total 8180.6 / 8180.6 1595.5 / 1595.5 745.3 / 745.3 Output Total 245 / 245 110 / 110 3010 / 3010 Balance 7935.6 / 7935.6 1485.5 / 1485.5 -2264.7 / -2264.7 Microbiology Past 72 Hours 06/16/18 11:15 Urine Culture - Final Urine Catheter - Robertson Culture exhibits no growth. 06/16/18 08:10 Gram Stain - Final Sputum, Tracheal Aspirate Respiratory Culture - Final 06/16/18 05:20 Gram Stain - Final Transtracheal Aspirate Respiratory Culture - Preliminary Streptococcus pneumoniae 06/15/18 20:45 Respiratory Panel (PCR) - Final Mucosa - Nose Influenza A (Subtype H1) 06/16/18 11:15 Legionella Antigen - Final Urine Catheter - Robertson 06/16/18 11:15 Streptococcus pneumoniae Antigen (M - Final Urine Catheter - Robertson Laboratory Tests Past 24 Hrs 06/16/18 06/16/18 06/16/18 03:50 06:45 17:55 WBC RBC Hgb Hct MCV MCH MCHC RDW RDW Differential Plt Count MPV Neut % (Auto) Absolute Neuts (auto) Absolute Lymphs (auto) Total Counted Neutrophils % (Manual) Lymphocytes % (Manual) Monocytes % (Manual) Metamyelocytes % Myelocytes % Plasma Cell % (Manual) Nucleated RBC % Diff Path Review Reviewed Reviewed Reviewed Platelet Estimate RBC Morphology Absolute Retic PT INR Specimen Type Sample Site pH Bicarbonate Actual POC Total CO2 Base Excess O2 Saturation O2 % ABG pCO2 ABG pO2 [place] Test O2 Delivery Device Vent Mode POC PEEP POC Pressure Suppt Blood Gas Notified Whom Blood Gas Notified Time Sodium Potassium Chloride Carbon Dioxide BUN Creatinine Estim Creat Clear Calc Est GFR (MDRD) Af Amer Est GFR (MDRD) Non-Af BUN/Creatinine Ratio Glucose Calcium Phosphorus Total Bilirubin Direct Bilirubin AST ALT Alkaline Phosphatase Total Protein Albumin Globulin Hep Bs Antigen Hep Bs Antibody Hep B Core Total Ab 06/17/18 06/17/18 06/17/18 04:45 23:30 23:30 WBC RBC Hgb Hct MCV MCH MCHC RDW RDW Differential Plt Count MPV Neut % (Auto) Absolute Neuts (auto) Absolute Lymphs (auto) Total Counted Neutrophils % (Manual) Lymphocytes % (Manual) Monocytes % (Manual) Metamyelocytes % Myelocytes % Plasma Cell % (Manual) Nucleated RBC % Diff Path Review Reviewed Platelet Estimate RBC Morphology Absolute Retic PT INR Specimen Type Sample Site pH Bicarbonate Actual POC Total CO2 Base Excess O2 Saturation O2 % ABG pCO2 ABG pO2 [place] Test O2 Delivery Device Vent Mode POC PEEP POC Pressure Suppt Blood Gas Notified Whom Blood Gas Notified Time Sodium Potassium Chloride Carbon Dioxide BUN Creatinine Estim Creat Clear Calc Est GFR (MDRD) Af Amer Est GFR (MDRD) Non-Af BUN/Creatinine Ratio Glucose Calcium Phosphorus Total Bilirubin Direct Bilirubin AST ALT Alkaline Phosphatase Total Protein Albumin Globulin Hep Bs Antigen Pending Hep Bs Antibody Pending Hep B Core Total Ab Pending 06/18/18 06/18/18 06/18/18 04:10 04:10 04:10 WBC 12.9 H RBC 4.95 Hgb 14.1 Hct 43.1 MCV 87.1 MCH 28.5 MCHC 32.7 RDW 15.2 H RDW Differential 48.3 H Plt Count 220 MPV 11.6 Neut % (Auto) Not Reportable Absolute Neuts (auto) 10.8 H Absolute Lymphs (auto) 1.03 Total Counted 100 Neutrophils % (Manual) 84 H Lymphocytes % (Manual) 8 L Monocytes % (Manual) 1 Metamyelocytes % 3 H Myelocytes % 2 H Plasma Cell % (Manual) 2 Nucleated RBC % 0.5 Diff Path Review May foll Platelet Estimate ADEQUATE RBC Morphology NORM C+C Absolute Retic 0.06 PT INR Specimen Type Sample Site pH Bicarbonate Actual POC Total CO2 Base Excess O2 Saturation O2 % ABG pCO2 ABG pO2 [place] Test O2 Delivery Device Vent Mode POC PEEP POC Pressure Suppt Blood Gas Notified Whom Blood Gas Notified Time Sodium 140 Potassium 4.5 Chloride 105 Carbon Dioxide 21.0 BUN 89 H Creatinine 4.50 H Estim Creat Clear Calc 12.05 Est GFR (MDRD) Af Amer 13 L Est GFR (MDRD) Non-Af 11 L BUN/Creatinine Ratio 19.8 Glucose 135 H Calcium 7.4 L Phosphorus 7.6 H Total Bilirubin 2.80 H Direct Bilirubin 1.91 H AST 3890 H ALT 2670 H Alkaline Phosphatase 119 H Total Protein 6.2 L Albumin 2.0 L 2.0 L Globulin 4.2 Hep Bs Antigen Hep Bs Antibody Hep B Core Total Ab 06/18/18 06/18/18 06:10 06:15 WBC RBC Hgb Hct MCV MCH MCHC RDW RDW Differential Plt Count MPV Neut % (Auto) Absolute Neuts (auto) Absolute Lymphs (auto) Total Counted Neutrophils % (Manual) Lymphocytes % (Manual) Monocytes % (Manual) Metamyelocytes % Myelocytes % Plasma Cell % (Manual) Nucleated RBC % Diff Path Review Platelet Estimate RBC Morphology Absolute Retic PT 19.6 H INR 1.7 Specimen Type ART Sample Site L Radial pH 7.34 L Bicarbonate Actual 16.9 L POC Total CO2 18 Base Excess -9 L O2 Saturation 93 L O2 % 40 ABG pCO2 31.6 L ABG pO2 69 L [place] Test POS O2 Delivery Device Vent Vent Mode CPAP PS POC PEEP 5 POC Pressure Suppt 5 Blood Gas Notified Whom ICU MD Blood Gas Notified Time 608 Sodium Potassium Chloride Carbon Dioxide BUN Creatinine Estim Creat Clear Calc Est GFR (MDRD) Af Amer Est GFR (MDRD) Non-Af BUN/Creatinine Ratio Glucose Calcium Phosphorus Total Bilirubin Direct Bilirubin AST ALT Alkaline Phosphatase Total Protein Albumin Globulin Hep Bs Antigen Hep Bs Antibody Hep B Core Total Ab POC Glucose 06/18/18 06/17/18 06/17/18 05:37 23:24 18:54 POC Glucose 142 H 118 H 110 Medical Necessity - Tobacco Use Smoking Status: Current every day smoker - Patient notes that she is currently smoking 2-3 cigarettes/day. Tobacco Use: Cigarettes Assessment/Plan All Active Problems Severe sepsis (Acute) Acute respiratory failure with hypoxia (Acute) Pneumonia (Acute) Atrial fibrillation with RVR (Acute) LYNNETTE (acute kidney injury) (Acute) This is a 58 years old female patient presented to the emergency room because of shortness of breath, cough and fever, found to have multilobar community- acquired pneumonia complicated by septic shock and her hospital course complicated by cardiac arrest status post CPR, A. fib with RVR, acute renal failure requiring hemodialysis as well as elevated LFTs secondary to shock liver. #1 septic shock: Remained on IV fluids and IV antibiotics, intubated, on sedation. No vasopressors required overnight. Blood pressure and heart rate are stable. She is on IV meropenem and vancomycin as well as Tamiflu. She is on IV steroids this morning. Sputum culture revealed Streptococcus pneumoniae. Blood cultures pending. Respiratory panel for viruses came back positive for influenza A. Plan to continue same treatment, hemodialysis again today, will keep her on mechanical ventilation for today. #2 acute bacterial/post viral multilobar community-acquired pneumonia: Remained on IV meropenem and vancomycin as well as Tamiflu and IV steroids this morning. Sputum culture revealed Streptococcus pneumoniae. Blood and sputum cultures are pending. Plan to change antibiotics to IV Levaquin. #3 status post cardiac arrest x2: Attributed to new onset A. fib with RVR that is likely precipitated by pneumonia. Her troponin are minimally elevated. EKG revealed no acute ischemic changes. Echocardiogram revealed ejection fraction 40%, mild to moderate global hypokinesis of the left ventricle.. Cardiology on the case. #4 acute hypoxic and hypercapnic respiratory failure: Secondary to pneumonia. She is on mechanical ventilation, she became dyspneic and tachypneic on spontaneous breathing trial this morning. She is on IV antibiotics, IV steroids and bronchodilators as above. Plan to treat underlying etiology. #5 acute renal failure: Patient does have multiorgan failure secondary to septic shock. Started on hemodialysis yesterday, BUN and creatinine has been worsening compared to yesterday. Plan for dialysis again today, nephrology on the case. #6 new onset A. fib with RVR/indeterminate troponin: She is in sinus rhythm now, blood pressure is maintained without vasopressors. Troponin is indeterminate, no acute ischemic changes on EKG. Plan as above. #7 shock liver: Secondary to septic shock. Liver transaminases as well as total bilirubin are highly elevated, continued to trend down, alk phos is normal. Plan as above. #8 DVT prophylaxis: SCDs. This note was generated with [employer] software. It may contain incorrect words, spelling, and punctuation that were not noted in checking the note before signing. Code Visit Inpatient E&M: 11323 Subs Hosp L2
--- NOTE | 2018-06-18 10:09 | PCM.PN.REN ---
Patient Problems: Active and Suspected Problems Severe sepsis (Acute) Acute respiratory failure with hypoxia (Acute) Pneumonia (Acute) Atrial fibrillation with RVR (Acute) LYNNETTE (acute kidney injury) (Acute) Subjective: Patient remains intubated and sedated. Off pressor. remains anurics. Cannot do review of system - Physical Exam General: - - Sedated and intubated HEENT: Atraumatic Oral: Moist Mucosa Neck: Supple, No JVD Lungs: No rhonchi, No wheeze, - - Equal air entry Abdomen: Soft, Non-Distended Extremities: No clubbing, No cyanosis, No edema Skin: No rashes Musculoskeletal: No Muscle Wasting Lymphatic: No Cervical, Supraclavicular, or Inguinal Adenopathy Psych/Mental Status: - - Sedated Vital Signs Temp Pulse Resp BP Pulse Ox 98.1 F 88 28 H 139/100 H 93 06/18/18 08:00 06/18/18 09:15 06/18/18 09:15 06/18/18 08:00 06/18/18 09:15 Oxygen Flow Rate (L/min) 60 Oxygen Delivery Method Mechanical Ventilator Weight: 115.4 kg Body Mass Index (BMI) 40.4 Intake and Output for Last 24 Hours 06/16/18 06/17/18 06/18/18 23:59 23:59 23:59 Intake Total 8180.6 / 8180.6 1595.5 / 1595.5 745.3 / 745.3 Output Total 245 / 245 110 / 110 3010 / 3010 Balance 7935.6 / 7935.6 1485.5 / 1485.5 -2264.7 / -2264.7 Microbiology Past 72 Hours 06/16/18 11:15 Urine Culture - Final Urine Catheter - [place] Culture exhibits no growth. 06/16/18 08:10 Gram Stain - Final Sputum, Tracheal Aspirate Respiratory Culture - Final 06/16/18 05:20 Gram Stain - Final Transtracheal Aspirate Respiratory Culture - Preliminary Streptococcus pneumoniae 06/15/18 20:45 Respiratory Panel (PCR) - Final Mucosa - Nose Influenza A (Subtype H1) 06/16/18 11:15 Legionella Antigen - Final Urine Catheter - [place] 06/16/18 11:15 Streptococcus pneumoniae Antigen (M - Final Urine Catheter - [place] Laboratory Tests Past 24 Hrs 0206/16/18 06/16/18 03:50 06:45 17:55 WBC RBC Hgb Hct MCV MCH MCHC RDW RDW Differential Plt Count MPV Neut % (Auto) Absolute Neuts (auto) Absolute Lymphs (auto) Total Counted Neutrophils % (Manual) Lymphocytes % (Manual) Monocytes % (Manual) Metamyelocytes % Myelocytes % Plasma Cell % (Manual) Nucleated RBC % Diff Path Review Reviewed Reviewed Reviewed Platelet Estimate RBC Morphology Absolute Retic PT INR Specimen Type Sample Site pH Bicarbonate Actual POC Total CO2 Base Excess O2 Saturation O2 % ABG pCO2 ABG pO2 [place] Test O2 Delivery Device Vent Mode POC PEEP POC Pressure Suppt Blood Gas Notified Whom Blood Gas Notified Time Sodium Potassium Chloride Carbon Dioxide BUN Creatinine Estim Creat Clear Calc Est GFR (MDRD) Af Amer Est GFR (MDRD) Non-Af BUN/Creatinine Ratio Glucose Calcium Phosphorus Total Bilirubin Direct Bilirubin AST ALT Alkaline Phosphatase Total Protein Albumin Globulin Hep Bs Antigen Hep Bs Antibody Hep B Core Total Ab 06/17/18 06/17/18 06/17/18 04:45 23:30 23:30 WBC RBC Hgb Hct MCV MCH MCHC RDW RDW Differential Plt Count MPV Neut % (Auto) Absolute Neuts (auto) Absolute Lymphs (auto) Total Counted Neutrophils % (Manual) Lymphocytes % (Manual) Monocytes % (Manual) Metamyelocytes % Myelocytes % Plasma Cell % (Manual) Nucleated RBC % Diff Path Review Reviewed Platelet Estimate RBC Morphology Absolute Retic PT INR Specimen Type Sample Site pH Bicarbonate Actual POC Total CO2 Base Excess O2 Saturation O2 % ABG pCO2 ABG pO2 [place] Test O2 Delivery Device Vent Mode POC PEEP POC Pressure Suppt Blood Gas Notified Whom Blood Gas Notified Time Sodium Potassium Chloride Carbon Dioxide BUN Creatinine Estim Creat Clear Calc Est GFR (MDRD) Af Amer Est GFR (MDRD) Non-Af BUN/Creatinine Ratio Glucose Calcium Phosphorus Total Bilirubin Direct Bilirubin AST ALT Alkaline Phosphatase Total Protein Albumin Globulin Hep Bs Antigen Pending Hep Bs Antibody Pending Hep B Core Total Ab Pending 06/18/18 06/18/18 06/18/18 04:10 04:10 04:10 WBC 12.9 H RBC 4.95 Hgb 14.1 Hct 43.1 MCV 87.1 MCH 28.5 MCHC 32.7 RDW 15.2 H RDW Differential 48.3 H Plt Count 220 MPV 11.6 Neut % (Auto) Not Reportable Absolute Neuts (auto) 10.8 H Absolute Lymphs (auto) 1.03 Total Counted 100 Neutrophils % (Manual) 84 H Lymphocytes % (Manual) 8 L Monocytes % (Manual) 1 Metamyelocytes % 3 H Myelocytes % 2 H Plasma Cell % (Manual) 2 Nucleated RBC % 0.5 Diff Path Review May foll Platelet Estimate ADEQUATE RBC Morphology NORM C+C Absolute Retic 0.06 PT INR Specimen Type Sample Site pH Bicarbonate Actual POC Total CO2 Base Excess O2 Saturation O2 % ABG pCO2 ABG pO2 [place] Test O2 Delivery Device Vent Mode POC PEEP POC Pressure Suppt Blood Gas Notified Whom Blood Gas Notified Time Sodium 140 Potassium 4.5 Chloride 105 Carbon Dioxide 21.0 BUN 89 H Creatinine 4.50 H Estim Creat Clear Calc 12.05 Est GFR (MDRD) Af Amer 13 L Est GFR (MDRD) Non-Af 11 L BUN/Creatinine Ratio 19.8 Glucose 135 H Calcium 7.4 L Phosphorus 7.6 H Total Bilirubin 2.80 H Direct Bilirubin 1.91 H AST 3890 H ALT 2670 H Alkaline Phosphatase 119 H Total Protein 6.2 L Albumin 2.0 L 2.0 L Globulin 4.2 Hep Bs Antigen Hep Bs Antibody Hep B Core Total Ab 06/18/18 06/18/18 06:10 06:15 WBC RBC Hgb Hct MCV MCH MCHC RDW RDW Differential Plt Count MPV Neut % (Auto) Absolute Neuts (auto) Absolute Lymphs (auto) Total Counted Neutrophils % (Manual) Lymphocytes % (Manual) Monocytes % (Manual) Metamyelocytes % Myelocytes % Plasma Cell % (Manual) Nucleated RBC % Diff Path Review Platelet Estimate RBC Morphology Absolute Retic PT 19.6 H INR 1.7 Specimen Type ART Sample Site L Radial pH 7.34 L Bicarbonate Actual 16.9 L POC Total CO2 18 Base Excess -9 L O2 Saturation 93 L O2 % 40 ABG pCO2 31.6 L ABG pO2 69 L [place] Test POS O2 Delivery Device Vent Vent Mode CPAP PS POC PEEP 5 POC Pressure Suppt 5 Blood Gas Notified Whom ICU MD Blood Gas Notified Time 608 Sodium Potassium Chloride Carbon Dioxide BUN Creatinine Estim Creat Clear Calc Est GFR (MDRD) Af Amer Est GFR (MDRD) Non-Af BUN/Creatinine Ratio Glucose Calcium Phosphorus Total Bilirubin Direct Bilirubin AST ALT Alkaline Phosphatase Total Protein Albumin Globulin Hep Bs Antigen Hep Bs Antibody Hep B Core Total Ab POC Glucose 02/19/19 02/18/19 02/18/19 05:37 23:24 18:54 POC Glucose 142 H 118 H 110 Medical Necessity - Tobacco Use Smoking Status: Current every day smoker - Patient notes that she is currently smoking 2-3 cigarettes/day. Tobacco Use: Cigarettes Assessment/Plan All Active Problems Severe sepsis (Acute) Acute respiratory failure with hypoxia (Acute) Pneumonia (Acute) Atrial fibrillation with RVR (Acute) LYNNETTE (acute kidney injury) (Acute) 1-Acute kidney injury. Most probably related to ischemic ATN following CODE BLUE. Patient is currently dependent on dialysis for volume and metabolic support. Remains anuric. No recovery of kidney function. Dialysis started on June 17. I will arrange for the second session of hemodialysis today for 3 hours, blood flow rate 300, dialysate flow rate 500 with ultrafiltration of 2-3 L Please keep mean arterial pressure more than 65. Avoid nephrotoxic. 2-Acute respiratory failure from community-acquired pneumonia. currently on vent support as per the launch check out. 3-bilateral pneumonia. On antibiotics as per the ICU team. meropenem dose should be adjusted to 500 mg every 8 hours. 4-A. fib with RVR. Patient needed Cardizem drip now back to sinus rhythm. Renal team will continue to follow. Please call with any question or concern Aaliyah Muñoz MD [phone]
[2018-06-18] MEDS: fentaNYL drip 100 ML 2.5 MCG IV ×2 (11:32→23:38)
[2018-06-18] MEDS: Magnesium Citrate 300 ML 150 ML GT ×2 (11:33→22:13)
[2018-06-18] MEDS: Chlorhexidine 15 ML PO ×2 (11:33→21:10)
[2018-06-18] MEDS: Oseltamivir Phosphate 30 MG Capsule PO (11:33)
[2018-06-18] MEDS: levoFLOXacin IV 750 MG/150 ML BAG 100 MG IV (11:34)
[2018-06-18 12:41] LABS: Bedside Glucose 157 mg/dL (70-110)
[2018-06-18 14:13] LABS: Pathologist Review Reviewed
[2018-06-18] MEDS: CHLORHEXIDINE GLUC 2% CLOTH 1 EACH TOWELETTE TOPICAL (16:06)
[2018-06-18 18:31] LABS: Bedside Glucose 115 mg/dL (70-110)
[2018-06-18] MEDS: Alteplase 2 MG/2 ML Vial IV ×2 (18:45)
[2018-06-18] MEDS: Bisacodyl 10 MG Suppository RECTAL (19:12)
--- NOTE | 2018-06-18 19:18 | DIALYSIS ---
Hemodialysis tx discontinued after 15 minutes due to no/poor flows from CVC. Unable to obtain a BFR of greater than 100ml/min with high pressures. Dr. Muñoz notified and wanted Cath-pato instilled overnight. Fluid balance for tx +133ml. Verbal report given to DEENA Dahl post tx. Next scheduled dialysis 06/19/18 provided flow of CVC has improved.
[2018-06-18 23:26] LABS: Bedside Glucose 144 mg/dL (70-110)
[2018-06-19] VITALS (43 sets, daily range): BP systolic 104–152; BP diastolic 41–113; PULSE 85–97; RESP 14–36; TEMP 36.6–37.8; O2SAT 88–97
[2018-06-19 04:40] LABS: Anion Gap 17 (5-15); BUN 125 mg/dL (7-18); BUN/Creat Ratio 20.7 RATIO (10-20); Calcium,Total 7.1 mg/dL (8.5-10.1); Chloride 101 mmol/L (98-107); Creatinine, Serum 6.03 mg/dL (0.55-1.02); EST Glomerular Filtration Rate 8 mL/min (>60); Est Glom Filt Rate - Afr Amer 9 mL/min (>60); Glucose 159 mg/dL (74-106); Potassium 4.9 mmol/L (3.5-5.1); Sodium Level 137 mmol/L (136-145)
[2018-06-19 05:26] LABS: Hematocrit 40.9 % (37-47); Hemoglobin 13.8 g/dl (12.0-15.0); Mean Corp Hgb Conc 33.7 g/gl (32-36); Mean Corpuscular Hgb 28.9 pg (27.0-32.0); Mean Corpuscular Volume 85.6 fL (81-99); Mean Platelet Vol. 11.5 fl (6.2-12.0); Platelet Count 240 K/mm3 (150-450); RBC Distribution Width CV 14.9 % (11.6-14.6); RBC Distribution Width SD 46.7 fl (35.1-43.9); Red Blood Count 4.78 M/mm3 (4.2-5.4); White Blood Count 13.9 K/mm3 (4.4-11.0)
[2018-06-19] MEDS: NYSTATIN 500,000 UNIT/5 ML UDC 500000 UNIT PO ×4 (05:26→23:44)
[2018-06-19] MEDS: CHLORHEXIDINE GLUC 2% CLOTH 1 EACH TOWELETTE TOPICAL (05:27)
[2018-06-19 05:36] LABS: Bedside Glucose 154 mg/dL (70-110)
[2018-06-19 05:37] LABS: Absolute Nucleated RBC Count 0.07 10^3/uL (0-5); Differential Indicated MANUAL DIFF; NRBC Flagged by Analyzer 0.5 % (0-5); POSITIVE COUNT YES; POSITIVE DIFFERENTIAL NO; POSITIVE MORPHOLOGY YES
[2018-06-19 06:22] LABS: Allen Test POS; Base Excess -10 mmol/L (-2 to +2); Bicarbonate 15.7 mmol/L (22-26); Blood Gas Specimen Type ART; FI02 40; Mode CPAP PS; O2 Delivery Device Vent; PEEP 5; PO2 74 mmHG (75-100); PS 5; SITE L Radial; SO2 95 % (95-99); Time Given 610; Total Carbon Dioxide 17 mmol/L; pCO2 27.3 mmHg (35-45); pH 7.37 (7.35-7.45)
[2018-06-19] MEDS: Ipratropium/Albuterol Sulfate 3 ML AMPUL.NEB INHALATION ×4 (06:49→19:11)
[2018-06-19 07:15] LABS: Lymphocyte 3 % (19-41); Monocyte 3 % (0-10); Neutrophil-Band 5 % (0-5); Neutrophil-Segmented 89 % (47-70); Total Cells Counted 100 (MANUAL DIFF)
[2018-06-19 07:16] LABS: Platelet Estimate ADEQUATE (ADEQ); Red Cell Morphology NORM C+C NORMAL (NORM C&C)
[2018-06-19 07:18] LABS: Absolute Lymphocyte Count 0.42 X10^3/ul (0.83-4.51); Absolute Neutrophil Count 13.1 X10^3/uL (2.0-7.7)
--- NOTE | 2018-06-19 07:34 | PN_ITS ---
Subjective: Patient did okay overnight. Patient was found to have a very high residual of tube feeds that were removed yesterday evening. Patient has continued to have elevated residuals and no bowel movement. Patient was able to pass a spontaneous breathing trial this morning. Reportedly, hemodialysis was attempted, but was discontinued secondary to poor flows. Cathflo was placed and is currently indwelling. Reportedly, hemodialysis will be attempted again this morning. General: Alert, No apparent distress, - - Anxious. RASS +1. Fair ventilator synchrony. HEENT: Atraumatic, PERRLA, EOMI, Normocephalic, - - Slight scleral injection without icterus Oral: Moist Mucosa, No Gingival or Mucosal Lesions/ Ulcerations Neck: Supple, No JVD, No Nodes, Trachea Midline, - - IJ lines are clean, dry and intact. Lungs: No rhonchi, No wheeze, No rales, Diminished, - - Symmetric expansion. No dullness to percussion. Cardiovascular: Regular rate, Regular Rhythm, Normal S1, Normal S2, No murmurs, No rub noted, No Gallop Abdomen: Bowel Sounds Present, Soft, Non Tender, Non-Distended, Obese Extremities: No clubbing, No cyanosis, Capillary Refill Less than 3 Seconds, Edema Skin: No rashes, No breakdown Musculoskeletal: No Tenderness to Palpation of Joints or Extremities Lymphatic: No Cervical, Supraclavicular, or Inguinal Adenopathy Neurological: Cranial nerves II-XII grossly intact, Neuro grossly intact Psych/Mental Status: Anxious, Impulsive, Restless Vital Signs Temp Pulse Resp BP Pulse Ox 37.1 C 85 34 H 135/100 H 95 06/19/18 06:00 06/19/18 06:50 06/19/18 06:50 06/19/18 06:00 06/19/18 06:00 Oxygen Flow Rate (L/min) 60 Oxygen Delivery Method Mechanical Ventilator Weight: 116 kg Body Mass Index (BMI) 40.4 Intake and Output for Last 24 Hours 06/17/18 06/18/18 06/19/18 23:59 23:59 23:59 Intake Total 1595.5 / 1595.5 2481.6 / 2481.6 521 / 521 Output Total 110 / 110 3050 / 3050 0 / 0 Balance 1485.5 / 1485.5 -568.4 / -568.4 521 / 521 Labs (Last 48 Hours) 06/16/18 06/16/18 06/16/18 03:50 06:45 17:55 WBC RBC Hgb Hct MCV MCH MCHC RDW RDW Differential Plt Count MPV Neut % (Auto) Absolute Neuts (auto) Absolute Lymphs (auto) Total Counted Neutrophils % (Manual) Band Neutrophils % Lymphocytes % (Manual) Monocytes % (Manual) Metamyelocytes % Myelocytes % Plasma Cell % (Manual) Nucleated RBC % Diff Path Review Reviewed Reviewed Reviewed Platelet Estimate RBC Morphology Absolute Retic PT INR Specimen Type Sample Site pH Bicarbonate Actual POC Total CO2 Base Excess O2 Saturation O2 % ABG pCO2 ABG pO2 [place] Test O2 Delivery Device Vent Mode POC PEEP POC Pressure Suppt Blood Gas Notified Whom Blood Gas Notified Time Sodium Potassium Chloride Carbon Dioxide Anion Gap BUN Creatinine Estim Creat Clear Calc Est GFR (MDRD) Af Amer Est GFR (MDRD) Non-Af BUN/Creatinine Ratio Glucose Calcium Phosphorus Total Bilirubin Direct Bilirubin AST ALT Alkaline Phosphatase Total Protein Albumin Globulin Hep Bs Antigen Hep Bs Antibody Hep B Core Total Ab POC Glucose 06/17/18 06/17/18 06/17/18 04:45 18:54 23:24 WBC RBC Hgb Hct MCV MCH MCHC RDW RDW Differential Plt Count MPV Neut % (Auto) Absolute Neuts (auto) Absolute Lymphs (auto) Total Counted Neutrophils % (Manual) Band Neutrophils % Lymphocytes % (Manual) Monocytes % (Manual) Metamyelocytes % Myelocytes % Plasma Cell % (Manual) Nucleated RBC % Diff Path Review Reviewed Platelet Estimate RBC Morphology Absolute Retic PT INR Specimen Type Sample Site pH Bicarbonate Actual POC Total CO2 Base Excess O2 Saturation O2 % ABG pCO2 ABG pO2 [place] Test O2 Delivery Device Vent Mode POC PEEP POC Pressure Suppt Blood Gas Notified Whom Blood Gas Notified Time Sodium Potassium Chloride Carbon Dioxide Anion Gap BUN Creatinine Estim Creat Clear Calc Est GFR (MDRD) Af Amer Est GFR (MDRD) Non-Af BUN/Creatinine Ratio Glucose Calcium Phosphorus Total Bilirubin Direct Bilirubin AST ALT Alkaline Phosphatase Total Protein Albumin Globulin Hep Bs Antigen Hep Bs Antibody Hep B Core Total Ab POC Glucose 110 118 H 06/17/18 06/17/18 06/18/18 23:30 23:30 04:10 WBC 12.9 H RBC 4.95 Hgb 14.1 Hct 43.1 MCV 87.1 MCH 28.5 MCHC 32.7 RDW 15.2 H RDW Differential 48.3 H Plt Count 220 MPV 11.6 Neut % (Auto) Not Reportable Absolute Neuts (auto) 10.8 H Absolute Lymphs (auto) 1.03 Total Counted 100 Neutrophils % (Manual) 84 H Band Neutrophils % Lymphocytes % (Manual) 8 L Monocytes % (Manual) 1 Metamyelocytes % 3 H Myelocytes % 2 H Plasma Cell % (Manual) 2 Nucleated RBC % 0.5 Diff Path Review Reviewed Platelet Estimate ADEQUATE RBC Morphology NORM C+C Absolute Retic 0.06 PT INR Specimen Type Sample Site pH Bicarbonate Actual POC Total CO2 Base Excess O2 Saturation O2 % ABG pCO2 ABG pO2 [place] Test O2 Delivery Device Vent Mode POC PEEP POC Pressure Suppt Blood Gas Notified Whom Blood Gas Notified Time Sodium Potassium Chloride Carbon Dioxide Anion Gap BUN Creatinine Estim Creat Clear Calc Est GFR (MDRD) Af Amer Est GFR (MDRD) Non-Af BUN/Creatinine Ratio Glucose Calcium Phosphorus Total Bilirubin Direct Bilirubin AST ALT Alkaline Phosphatase Total Protein Albumin Globulin Hep Bs Antigen Pending Hep Bs Antibody Pending Hep B Core Total Ab Pending POC Glucose 06/18/18 06/18/18 06/18/18 04:10 04:10 05:37 WBC RBC Hgb Hct MCV MCH MCHC RDW RDW Differential Plt Count MPV Neut % (Auto) Absolute Neuts (auto) Absolute Lymphs (auto) Total Counted Neutrophils % (Manual) Band Neutrophils % Lymphocytes % (Manual) Monocytes % (Manual) Metamyelocytes % Myelocytes % Plasma Cell % (Manual) Nucleated RBC % Diff Path Review Platelet Estimate RBC Morphology Absolute Retic PT INR Specimen Type Sample Site pH Bicarbonate Actual POC Total CO2 Base Excess O2 Saturation O2 % ABG pCO2 ABG pO2 [place] Test O2 Delivery Device Vent Mode POC PEEP POC Pressure Suppt Blood Gas Notified Whom Blood Gas Notified Time Sodium 140 Potassium 4.5 Chloride 105 Carbon Dioxide 21.0 Anion Gap BUN 89 H Creatinine 4.50 H Estim Creat Clear Calc 12.05 Est GFR (MDRD) Af Amer 13 L Est GFR (MDRD) Non-Af 11 L BUN/Creatinine Ratio 19.8 Glucose 135 H Calcium 7.4 L Phosphorus 7.6 H Total Bilirubin 2.80 H Direct Bilirubin 1.91 H AST 3890 H ALT 2670 H Alkaline Phosphatase 119 H Total Protein 6.2 L Albumin 2.0 L 2.0 L Globulin 4.2 Hep Bs Antigen Hep Bs Antibody Hep B Core Total Ab POC Glucose 142 H 06/18/18 06/18/18 06/18/18 06:10 06:15 12:27 WBC RBC Hgb Hct MCV MCH MCHC RDW RDW Differential Plt Count MPV Neut % (Auto) Absolute Neuts (auto) Absolute Lymphs (auto) Total Counted Neutrophils % (Manual) Band Neutrophils % Lymphocytes % (Manual) Monocytes % (Manual) Metamyelocytes % Myelocytes % Plasma Cell % (Manual) Nucleated RBC % Diff Path Review Platelet Estimate RBC Morphology Absolute Retic PT 19.6 H INR 1.7 Specimen Type ART Sample Site L Radial pH 7.34 L Bicarbonate Actual 16.9 L POC Total CO2 18 Base Excess -9 L O2 Saturation 93 L O2 % 40 ABG pCO2 31.6 L ABG pO2 69 L [place] Test POS O2 Delivery Device Vent Vent Mode CPAP PS POC PEEP 5 POC Pressure Suppt 5 Blood Gas Notified Whom ICU MD Blood Gas Notified Time 608 Sodium Potassium Chloride Carbon Dioxide Anion Gap BUN Creatinine Estim Creat Clear Calc Est GFR (MDRD) Af Amer Est GFR (MDRD) Non-Af BUN/Creatinine Ratio Glucose Calcium Phosphorus Total Bilirubin Direct Bilirubin AST ALT Alkaline Phosphatase Total Protein Albumin Globulin Hep Bs Antigen Hep Bs Antibody Hep B Core Total Ab POC Glucose 157 H 06/18/18 06/18/18 06/19/18 18:28 23:13 04:15 WBC 13.9 H RBC 4.78 Hgb 13.8 Hct 40.9 MCV 85.6 MCH 28.9 MCHC 33.7 RDW 14.9 H RDW Differential 46.7 H Plt Count 240 MPV 11.5 Neut % (Auto) Not Reportable Absolute Neuts (auto) 13.1 H Absolute Lymphs (auto) 0.42 L Total Counted 100 Neutrophils % (Manual) 89 H Band Neutrophils % 5 Lymphocytes % (Manual) 3 L Monocytes % (Manual) 3 Metamyelocytes % Myelocytes % Plasma Cell % (Manual) Nucleated RBC % 0.5 Diff Path Review May foll Platelet Estimate ADEQUATE RBC Morphology NORM C+C Absolute Retic 0.07 PT INR Specimen Type Sample Site pH Bicarbonate Actual POC Total CO2 Base Excess O2 Saturation O2 % ABG pCO2 ABG pO2 [place] Test O2 Delivery Device Vent Mode POC PEEP POC Pressure Suppt Blood Gas Notified Whom Blood Gas Notified Time Sodium Potassium Chloride Carbon Dioxide Anion Gap BUN Creatinine Estim Creat Clear Calc Est GFR (MDRD) Af Amer Est GFR (MDRD) Non-Af BUN/Creatinine Ratio Glucose Calcium Phosphorus Total Bilirubin Direct Bilirubin AST ALT Alkaline Phosphatase Total Protein Albumin Globulin Hep Bs Antigen Hep Bs Antibody Hep B Core Total Ab POC Glucose 115 H 144 H 06/19/18 06/19/18 06/19/18 04:15 05:24 06:13 WBC RBC Hgb Hct MCV MCH MCHC RDW RDW Differential Plt Count MPV Neut % (Auto) Absolute Neuts (auto) Absolute Lymphs (auto) Total Counted Neutrophils % (Manual) Band Neutrophils % Lymphocytes % (Manual) Monocytes % (Manual) Metamyelocytes % Myelocytes % Plasma Cell % (Manual) Nucleated RBC % Diff Path Review Platelet Estimate RBC Morphology Absolute Retic PT INR Specimen Type ART Sample Site L Radial pH 7.37 Bicarbonate Actual 15.7 L POC Total CO2 17 Base Excess -10 L O2 Saturation 95 O2 % 40 ABG pCO2 27.3 L ABG pO2 74 L [place] Test POS O2 Delivery Device Vent Vent Mode CPAP PS POC PEEP 5 POC Pressure Suppt 5 Blood Gas Notified Whom ICU MD Blood Gas Notified Time 610 Sodium 137 Potassium 4.9 Chloride 101 Carbon Dioxide 19.0 L Anion Gap 17 H BUN 125 H* Creatinine 6.03 H Estim Creat Clear Calc 9.00 Est GFR (MDRD) Af Amer 9 L Est GFR (MDRD) Non-Af 8 L BUN/Creatinine Ratio 20.7 H Glucose 159 H Calcium 7.1 L Phosphorus Total Bilirubin Direct Bilirubin AST ALT Alkaline Phosphatase Total Protein Albumin Globulin Hep Bs Antigen Hep Bs Antibody Hep B Core Total Ab POC Glucose 154 H Microbiology 06/15/18 21:40 Blood Culture (Wb) - Anticubital Right Blood Culture - Preliminary No growth in 48 hours. 06/15/18 21:40 Blood Culture (Wb) - Anticubital Left Blood Culture - Preliminary No growth in 48 hours. 06/16/18 11:15 Urine Catheter - [place] Urine Culture - Final Culture exhibits no growth. 06/16/18 08:10 Sputum, Tracheal Aspirate Gram Stain - Final 06/16/18 08:10 Sputum, Tracheal Aspirate Respiratory Culture - Final 06/16/18 05:20 Transtracheal Aspirate Gram Stain - Final 06/16/18 05:20 Transtracheal Aspirate Respiratory Culture - Preliminary Streptococcus pneumoniae Capacity - Capacity Assessment Tool Can the patient make a choice & communicate that choice?: No Can the patient understand benefits, risks and alternatives?: No Can the patient make a logical, rational choice?: No Is the choice the patient makes consistent w/ their values?: No Is there an impending, emergent risk to the patient?: Yes Does the patient have an Advance Directive?: No Is there a Surrogate Available?: Yes - Brother is next of kin/POA i.e. HCPOA: Yes i.e. close relative (spouse, child, parent, sibling)?: Yes Medical Necessity - Tobacco Use Smoking Status: Current every day smoker - Patient notes that she is currently smoking 2-3 cigarettes/day. Tobacco Use: Cigarettes Assessment/Plan All Active Problems Severe sepsis (Acute) Acute respiratory failure with hypoxia (Acute) Pneumonia (Acute) Atrial fibrillation with RVR (Acute) LYNNETTE (acute kidney injury) (Acute) Problem with dialysis access (Acute) RECOMMENDATIONS: 1. Attempt aggressive bowel regimen 2. Continue Precedex therapy for sedation, fentanyl drip for pain 3. Continuation of empiric steroid therapy, will need to watch blood sugars closely 4. Await hemodialysis 5. Continue Tamiflu. Continue antibiotics 6. Continue bronchodilators IMPRESSIONS: 1. Septic shock with multiorgan system dysfunction secondary to severe community-acquired pneumonia Patient influenza A positive. Patient was originally requiring 3 separate pressors to maintain adequate blood pressure. This may have been complicated by underlying rate control for A. fib. Patient currently off of all pressor therapy. We will continue to monitor. Patient is growing pneumococcus on sputum culture. Patient is responding well to Levaquin therapy. 2. Acute hypoxemic and hypercarbic respiratory failure As noted above, clinical concern for severe community-acquired pneumonia. In addition, the patient's brother does have a history of unprovoked venous thromboembolic disease, raising the suspicion for PE as a potential contribution to the patient's decompensation. DVT scan was negative yesterday, so PE is unlikely given positive influenza. Patient is on DVT prophylaxis only. Patient will be kept on a ventilator as PO2 was only marginal on 40% FiO2 and patient does have a history of noncompliance with BiPAP therapy. Some concern given pat ient's need for hemodialysis and gastric secretion retention. Aggressive bowel regimen is underway. Will likely remain intubated pending hemodialysis. Potential extubation later today. 3. New onset atrial fibrillation with rapid ventricular response/troponin elevation/cardiopulmonary arrest Although the patient presented to the hospital with new onset atrial fibrillation, her cardiac arrest was most likely precipitated by hypoxemia. She has been stabilized at this point. The patient converted to normal sinus rhythm overnight following administration of amiodarone, which has been discontinued at this time. We will continue current supportive measures as noted above. Echocardiogram is showing an EF of 40%. Troponins are relatively unimpressive given patient's clinical course. Cardiology is following. 4. Acute kidney injury/shock liver Shock liver was improving previously. However, patient's creatinine is significantly elevated, along with BUN. Patient continues to have marginal urine output. Defer to nephrology, but anticipate hemodialysis again soon. 5. Metabolic encephalopathy Likely secondary to increased metabolic demands in the setting of #1 coupled with hypercarbia and uremia. Despite having gone into cardiac arrest on 2 separate occasions during this hospitalization, the patient's mentation appears to be intact. Continue current supportive measures as noted above. 6. Unknown medical history/morbid obesity/tobacco dependency Complicates care, management, recovery and prognosis. Nicotine replacement therapy can be considered once the patient is deemed to be stabilized clinically. Okay to initiate tube feeds. Addendum 2 PM: Some discussion about capacity with the patient. Patient currently has a BUN greater than 100 and is on maximum dose of Precedex. Patient's brother reports that she is stated to him that she did not want to and therefore he has made a decision to move forward with hemodialysis. He understands that if she improves she may decide not to continue with dialysis, but without dialysis he understands that her outcome is grim and hospice measures are likely indicated. TIME: 45 minutes of critical care time was spent addressing the patient's septic shock, multiorgan system dysfunction, severe community-acquired pneumonia, acute respiratory failure, new onset atrial fibrillation, cardiac arrest, acute kidney injury, shock liver, metabolic encephalopathy, review of all data and collaboration with the care team. (6 AM to 7 AM) Code Visit [id number]: [id number] Critical care first hour
[2018-06-19] MEDS: Bisacodyl 10 MG Suppository RECTAL (08:01)
--- NOTE | 2018-06-19 08:07 | PCM.PROGNOTE ---
Patient Problems: Active and Suspected Problems Severe sepsis (Acute) Acute respiratory failure with hypoxia (Acute) Pneumonia (Acute) Atrial fibrillation with RVR (Acute) LYNNETTE (acute kidney injury) (Acute) Subjective: Chief complaint: Follow-up after admission for septic shock due to community acquired pneumonia, acute hypoxic and hypercapnic respiratory failure, acute renal failure, new onset A. fib with RVR, status post cardiac arrest and shock liver. Patient seen and examined. No acute events overnight. This morning, she is very agitated, restless. Hemodialysis was not done yesterday because of poor flow through the central line. She passed spontaneous breathing This morning. She is afebrile, blood pressure and heart rate are maintained, on mechanical ventilation - Physical Exam General: Alert, Cooperative, - - Agitated, restless. HEENT: Atraumatic, PERRLA, EOMI, Normocephalic Oral: Moist Mucosa, No Gingival or Mucosal Lesions/ Ulcerations Neck: Supple, No JVD, Negative Carotid Bruits, Trachea Midline, Thyroid Normal Size and Texture Lungs: No wheeze, No rales, Diminished, Rhonchi, Short of Breath Cardiovascular: Regular rate, Regular Rhythm, Normal S1, Normal S2, PMI Normal Abdomen: Bowel Sounds Present, Soft, Non Tender, Non-Distended, No Hepato-splenomegaly, Obese Extremities: No clubbing, No cyanosis, Edema Skin: No rashes, No breakdown Lymphatic: No Cervical, Supraclavicular, or Inguinal Adenopathy Neurological: Cranial nerves II-XII grossly intact, Neuro grossly intact Psych/Mental Status: Agitated, Anxious, Restless Vital Signs Temp Pulse Resp BP Pulse Ox 98.7 F 85 34 H 135/100 H 95 06/19/18 06:00 06/19/18 06:50 06/19/18 06:50 06/19/18 06:00 06/19/18 06:00 Oxygen Flow Rate (L/min) 60 Oxygen Delivery Method Mechanical Ventilator Weight: 255 lb 11.779 oz Body Mass Index (BMI) 40.4 Intake and Output for Last 24 Hours 06/17/18 06/18/18 06/19/18 23:59 23:59 23:59 Intake Total 1595.5 / 1595.5 2481.6 / 2481.6 521 / 521 Output Total 110 / 110 3050 / 3050 0 / 0 Balance 1485.5 / 1485.5 -568.4 / -568.4 521 / 521 Microbiology Past 72 Hours 06/16/18 05:20 Gram Stain - Final Transtracheal Aspirate Respiratory Culture - Final Streptococcus pneumoniae 06/15/18 21:40 Blood Culture - Preliminary Blood Culture (Wb) - Anticubital Right No growth in 48 hours. 06/15/18 21:40 Blood Culture - Preliminary Blood Culture (Wb) - Anticubital Left No growth in 48 hours. 06/16/18 11:15 Urine Culture - Final Urine Catheter - Robertson Culture exhibits no growth. 06/16/18 08:10 Gram Stain - Final Sputum, Tracheal Aspirate Respiratory Culture - Final 06/15/18 20:45 Respiratory Panel (PCR) - Final Mucosa - Nose Influenza A (Subtype H1) 06/16/18 11:15 Legionella Antigen - Final Urine Catheter - Robertson 06/16/18 11:15 Streptococcus pneumoniae Antigen (M - Final Urine Catheter - Robertson Laboratory Tests Past 24 Hrs 06/18/18 06/19/18 06/19/18 04:10 04:15 04:15 WBC 13.9 H RBC 4.78 Hgb 13.8 Hct 40.9 MCV 85.6 MCH 28.9 MCHC 33.7 RDW 14.9 H RDW Differential 46.7 H Plt Count 240 MPV 11.5 Neut % (Auto) Not Reportable Absolute Neuts (auto) 13.1 H Absolute Lymphs (auto) 0.42 L Total Counted 100 Neutrophils % (Manual) 89 H Band Neutrophils % 5 Lymphocytes % (Manual) 3 L Monocytes % (Manual) 3 Nucleated RBC % 0.5 Diff Path Review Reviewed May foll Platelet Estimate ADEQUATE RBC Morphology NORM C+C Absolute Retic 0.07 Specimen Type Sample Site pH Bicarbonate Actual POC Total CO2 Base Excess O2 Saturation O2 % ABG pCO2 ABG pO2 [place] Test O2 Delivery Device Vent Mode POC PEEP POC Pressure Suppt Blood Gas Notified Whom Blood Gas Notified Time Sodium 137 Potassium 4.9 Chloride 101 Carbon Dioxide 19.0 L Anion Gap 17 H BUN 125 H* Creatinine 6.03 H Estim Creat Clear Calc 9.00 Est GFR (MDRD) Af Amer 9 L Est GFR (MDRD) Non-Af 8 L BUN/Creatinine Ratio 20.7 H Glucose 159 H Calcium 7.1 L 06/19/18 06:13 WBC RBC Hgb Hct MCV MCH MCHC RDW RDW Differential Plt Count MPV Neut % (Auto) Absolute Neuts (auto) Absolute Lymphs (auto) Total Counted Neutrophils % (Manual) Band Neutrophils % Lymphocytes % (Manual) Monocytes % (Manual) Nucleated RBC % Diff Path Review Platelet Estimate RBC Morphology Absolute Retic Specimen Type ART Sample Site L Radial pH 7.37 Bicarbonate Actual 15.7 L POC Total CO2 17 Base Excess -10 L O2 Saturation 95 O2 % 40 ABG pCO2 27.3 L ABG pO2 74 L [place] Test POS O2 Delivery Device Vent Vent Mode CPAP PS POC PEEP 5 POC Pressure Suppt 5 Blood Gas Notified Whom ICU MD Blood Gas Notified Time 610 Sodium Potassium Chloride Carbon Dioxide Anion Gap BUN Creatinine Estim Creat Clear Calc Est GFR (MDRD) Af Amer Est GFR (MDRD) Non-Af BUN/Creatinine Ratio Glucose Calcium POC Glucose 06/19/18 06/18/18 06/18/18 05:24 23:13 18:28 POC Glucose 154 H 144 H 115 H 06/18/18 12:27 POC Glucose 157 H Medical Necessity - Tobacco Use Smoking Status: Current every day smoker - Patient notes that she is currently smoking 2-3 cigarettes/day. Tobacco Use: Cigarettes Assessment/Plan All Active Problems Severe sepsis (Acute) Acute respiratory failure with hypoxia (Acute) Pneumonia (Acute) Atrial fibrillation with RVR (Acute) LYNNETTE (acute kidney injury) (Acute) This is a 58 years old female patient presented to the emergency room because of shortness of breath, cough and fever, found to have multilobar community-acquired pneumonia complicated by septic shock and her hospital course complicated by cardiac arrest status post CPR, A. fib with RVR, acute renal failure requiring hemodialysis as well as elevated LFTs secondary to shock liver. #1 septic shock: Blood pressure 117, no IV fluids or vasopressors needed. She is on IV Levaquin and Tamiflu as well as IV steroids. Sputum culture revealed Streptococcus pneumoniae. Blood cultures showed no growth in 48 hours. Respiratory panel for viruses came back positive for influenza A. Plan to continue same treatment, attempt hemodialysis again today. #2 acute streptococcal multilobar community-acquired pneumonia: She is on IV Levaquin and Tamiflu as well as IV steroids. Sputum culture revealed Streptococcus pneumoniae. Blood and sputum cultures are pending. Plan to change antibiotics to IV Levaquin. #3 status post cardiac arrest x2: Attributed to new onset A. fib with RVR that is likely precipitated by pneumonia. Her troponin are minimally elevated. EKG revealed no acute ischemic changes. Echocardiogram revealed ejection fraction 40%, mild to moderate global hypokinesis of the left ventricle.. Cardiology on the case. #4 acute hypoxic and hypercapnic respiratory failure: Secondary to pneumonia. She is on mechanical ventilation, she passed spontaneous breathing trial this morning. She is on IV antibiotics, IV steroids and bronchodilators as above. Plan to treat underlying etiology, possible extubation later today. #5 acute renal failure: Patient does have multiorgan failure secondary to septic shock. Hemodialysis was not done yesterday because of poor flow through the central line. BUN and creatinine are still worsening, no improvement. Plan to attempt dialysis again today. Nephrology on the case. #6 new onset A. fib with RVR/indeterminate troponin: Remained in sinus rhythm now, blood pressure is maintained without vasopressors. Troponin is indeterminate, no acute ischemic changes on EKG. Plan as above. #7 shock liver: Secondary to septic shock. Liver transaminases as well as total bilirubin are highly elevated, continued to trend down, alk phos is normal. Plan as above. #8 DVT prophylaxis: SCDs. This note was generated with [employer] dictation software. It may contain incorrect words, spelling, and punctuation that were not noted in checking the note before signing. Code Visit Inpatient E&M: 35152 Subs Hosp L3
--- NOTE | 2018-06-19 08:43 | PN.CARD_ITS ---
Subjectve: Patient seen and evaluated. Objective: Vital Signs Temp Pulse Resp BP Pulse Ox 99.3 F H 94 28 H 143/106 H 93 06/19/18 08:00 06/19/18 08:00 06/19/18 08:00 06/19/18 08:30 06/19/18 08:00 Oxygen Flow Rate (L/min) 60 Oxygen Delivery Method Mechanical Ventilator Weight: 255 lb 11.779 oz Body Mass Index (BMI) 40.4 Intake and Output for Last 24 Hours 06/17/18 06/18/18 06/19/18 23:59 23:59 23:59 Intake Total 1595.5 / 1595.5 2481.6 / 2481.6 521 / 521 Output Total 110 / 110 3050 / 3050 0 / 0 Balance 1485.5 / 1485.5 -568.4 / -568.4 521 / 521 General: Awake, Alert, Oriented x 3 HEENT: PERRL, EOMI, Sclera Non Icteric Neck: Supple, Good ROM, No Lymph Node Enlargement Lungs: Clear to auscultation Cardiovascular: Regular Rhythm, Normal S1, Normal S2, No Murmurs, No Rubs, No Gallops Vascular: No Carotid Bruits, Normal Femoral Pulses, Normal Radial Pulses, Normal Dorsalis Pedal Pulse, Normal Posterior Tibial Pulses Abdomen: Bowel Sounds Present, Soft, Non Tender, No HSM, No Organomegaly Extremities: No Cyanosis, No Clubbing, No edema Neurological: No Focal Motor or Sensory Deficit 06/19/18 04:15: WBC 13.9 H, RBC 4.78, Hgb 13.8, Hct 40.9, MCV 85.6, MCH 28.9, MCHC 33.7, RDW 14.9 H, RDW Differential 46.7 H, Plt Count 240, MPV 11.5, Neut % (Auto) Not Reportable, Absolute Neuts (auto) 13.1 H, Total Counted 100, Neutrophils % (Manual) 89 H, Band Neutrophils % 5, Lymphocytes % (Manual) 3 L, Monocytes % (Manual) 3, Nucleated RBC % 0.5 06/19/18 04:15: Sodium 137, Potassium 4.9, Chloride 101, Carbon Dioxide 19.0 L, Anion Gap 17 H, BUN 125 H*, Creatinine 6.03 H, Est GFR (MDRD) Af Amer 9 L, Est GFR (MDRD) Non-Af 8 L, BUN/Creatinine Ratio 20.7 H, Glucose 159 H, Calcium 7.1 L 06/19/18 06:13: pH 7.37, Bicarbonate Actual 15.7 L, POC Total CO2 17, Base Excess -10 L, O2 Saturation 95, ABG pCO2 27.3 L, ABG pO2 74 L, [place] Test POS Rhythm: EKG: ECHO: Stress Test: Cardiac Cath: PCI: CT Surgery: Holter monitor: EPS: PPM: CXR: Chest CT Scan: Medical Necessity - Tobacco Use Smoking Status: Current every day smoker - Patient notes that she is currently smoking 2-3 cigarettes/day. Tobacco Use: Cigarettes Assessment/Plan 1. Atrial fibrillation * Patient presented with atrial fibrillation likely secondary to her lung condition. With her pneumonia. The above appears to have been transient and currently patient is maintaining sinus rhythm. * Echocardiogram done demonstrated mild to moderately globally reduced left ventricular systolic function. * I do not think that long-term anticoagulation is warranted at this time. * 2. Cardiopulmonary arrest * I suspect the above is on the basis of severe hypoxia as well as the bradycardia arrhythmia secondary to the beta-moris that the patient was receiving. * That appears to have resolved and currently patient is on supportive management with three-vasoactive agents. We will try and titrate to maintain a mean arterial pressure of 65 mmHg. 3. Lung consolidation * I suspect the above is on the basis of an infection and not a pulmonary em bolism with pulmonary infarction. * * 4. Abnormal cardiac enzymes * Above is likely secondary to demand ischemia. * No further workup at this time 5. Acute renal insufficiency * The above is likely secondary to her septic state, hypotension and poor perfusion likely on an underlying baseline renal dysfunction. * * We will continue to follow with you peripherally. * *
--- NOTE | 2018-06-19 09:02 | PN.RENAL_ITS ---
Patient Problems: Active and Suspected Problems Severe sepsis (Acute) Acute respiratory failure with hypoxia (Acute) Pneumonia (Acute) Atrial fibrillation with RVR (Acute) LYNNETTE (acute kidney injury) (Acute) Subjective: Pt remains intubated with fio2 50%. Sedated. Remains anuric. HD session was not done yesterday due to HD line dysfunction. Cannot do ROS - Physical Exam General: - - Intubated and sedated HEENT: Atraumatic, Normocephalic Oral: Moist Mucosa Neck: Supple, No JVD Lungs: - - Right side rhonchi Cardiovascular: Regular rate, Regular Rhythm, Normal S1, Normal S2 Abdomen: Bowel Sounds Present, Soft, Non-Distended Extremities: No clubbing, No cyanosis, No edema Skin: No rashes Lymphatic: No Cervical, Supraclavicular, or Inguinal Adenopathy Neurological: - - sedated Vital Signs Temp Pulse Resp BP Pulse Ox 99.3 F H 94 28 H 143/106 H 93 06/19/18 08:00 06/19/18 08:00 06/19/18 08:00 06/19/18 08:30 06/19/18 08:00 Oxygen Flow Rate (L/min) 60 Oxygen Delivery Method Mechanical Ventilator Weight: 116 kg Body Mass Index (BMI) 40.4 Intake and Output for Last 24 Hours 06/17/18 06/18/18 06/19/18 23:59 23:59 23:59 Intake Total 1595.5 / 1595.5 2481.6 / 2481.6 521 / 521 Output Total 110 / 110 3050 / 3050 0 / 0 Balance 1485.5 / 1485.5 -568.4 / -568.4 521 / 521 Microbiology Past 72 Hours 06/16/18 05:20 Gram Stain - Final Transtracheal Aspirate Respiratory Culture - Final Streptococcus pneumoniae 06/15/18 21:40 Blood Culture - Preliminary Blood Culture (Wb) - Anticubital Right No growth in 48 hours. 06/15/18 21:40 Blood Culture - Preliminary Blood Culture (Wb) - Anticubital Left No growth in 48 hours. 06/16/18 11:15 Urine Culture - Final Urine Catheter - Robertson Culture exhibits no growth. 06/16/18 08:10 Gram Stain - Final Sputum, Tracheal Aspirate Respiratory Culture - Final 02/16/19 20:45 Respiratory Panel (PCR) - Final Mucosa - Nose Influenza A (Subtype H1) 06/16/18 11:15 Legionella Antigen - Final Urine Catheter - Robertson 06/16/18 11:15 Streptococcus pneumoniae Antigen (M - Final Urine Catheter - Robertson Laboratory Tests Past 24 Hrs 06/18/18 06/19/18 06/19/18 04:10 04:15 04:15 WBC 13.9 H RBC 4.78 Hgb 13.8 Hct 40.9 MCV 85.6 MCH 28.9 MCHC 33.7 RDW 14.9 H RDW Differential 46.7 H Plt Count 240 MPV 11.5 Neut % (Auto) Not Reportable Absolute Neuts (auto) 13.1 H Absolute Lymphs (auto) 0.42 L Total Counted 100 Neutrophils % (Manual) 89 H Band Neutrophils % 5 Lymphocytes % (Manual) 3 L Monocytes % (Manual) 3 Nucleated RBC % 0.5 Diff Path Review Reviewed May foll Platelet Estimate ADEQUATE RBC Morphology NORM C+C Absolute Retic 0.07 Specimen Type Sample Site pH Bicarbonate Actual POC Total CO2 Base Excess O2 Saturation O2 % ABG pCO2 ABG pO2 [place] Test O2 Delivery Device Vent Mode POC PEEP POC Pressure Suppt Blood Gas Notified Whom Blood Gas Notified Time Sodium 137 Potassium 4.9 Chloride 101 Carbon Dioxide 19.0 L Anion Gap 17 H BUN 125 H* Creatinine 6.03 H Estim Creat Clear Calc 9.00 Est GFR (MDRD) Af Amer 9 L Est GFR (MDRD) Non-Af 8 L BUN/Creatinine Ratio 20.7 H Glucose 159 H Calcium 7.1 L 06/19/18 06:13 WBC RBC Hgb Hct MCV MCH MCHC RDW RDW Differential Plt Count MPV Neut % (Auto) Absolute Neuts (auto) Absolute Lymphs (auto) Total Counted Neutrophils % (Manual) Band Neutrophils % Lymphocytes % (Manual) Monocytes % (Manual) Nucleated RBC % Diff Path Review Platelet Estimate RBC Morphology Absolute Retic Specimen Type ART Sample Site L Radial pH 7.37 Bicarbonate Actual 15.7 L POC Total CO2 17 Base Excess -10 L O2 Saturation 95 O2 % 40 ABG pCO2 27.3 L ABG pO2 74 L [place] Test POS O2 Delivery Device Vent Vent Mode CPAP PS POC PEEP 5 POC Pressure Suppt 5 Blood Gas Notified Whom ICU MD Blood Gas Notified Time 610 Sodium Potassium Chloride Carbon Dioxide Anion Gap BUN Creatinine Estim Creat Clear Calc Est GFR (MDRD) Af Amer Est GFR (MDRD) Non-Af BUN/Creatinine Ratio Glucose Calcium POC Glucose 06/19/18 06/18/18 06/18/18 05:24 23:13 18:28 POC Glucose 154 H 144 H 115 H 06/18/18 12:27 POC Glucose 157 H Medical Necessity - Tobacco Use Smoking Status: Current every day smoker - Patient notes that she is currently smoking 2-3 cigarettes/day. Tobacco Use: Cigarettes Assessment/Plan All Active Problems Severe sepsis (Acute) Acute respiratory failure with hypoxia (Acute) Pneumonia (Acute) Atrial fibrillation with RVR (Acute) LYNNETTE (acute kidney injury) (Acute) 1-Acute kidney injury. Most probably related to ischemic ATN following CODE BLUE. Patient is currently dependent on dialysis for volume and metabolic support. Remains anuric.BUN today > 120. Cr continues to rise significantly No recovery of kidney function. Dialysis started on June 17. HD session yesterday was not done due to HD line dysfunction. TPA was placed in both lumens . Will try HD session today using the same HD line. If still not working, HD access will be changed Please keep mean arterial pressure more than 65. Avoid nephrotoxic. I will continue to monitor for kidney function recovery 2-Acute respiratory failure from community-acquired pneumonia/Influenza A infection. currently on vent support as per the lining finisher. 3-bilateral pneumonia/Influenza A infection. On antibiotics as per the ICU team. Levaquin is appropriately dosed for HD patient Tamiflu should be changed to 30 mg every other dialysis ( should be given after HD session ) 4-A. fib with RVR. Patient needed Cardizem drip now back to sinus rhythm. Renal team will continue to follow. Please call with any question or concern Aaliyah Muñoz MD [phone]
--- NOTE | 2018-06-19 09:30 | CASEMGMT ---
[facility] CM Note. Interdisciplinary rounds: High residuals of tube feed. Remains on mechanical ventilation. LYNNETTE: Dialysis started on Jun 17. Dr. Dailey consult for placement of new dialysis cath. CM will continue to follow for dialysis needs. Mychal ARROYON RN ACM
--- NOTE | 2018-06-19 10:09 | DIALYSIS ---
temp hd cvc to r.jeannette checked this AM for patency. Able to remove the cathflo from both lines. There was clotting noted in the Art. line. There was push/pull however extremely firm/sluggish inadequate to be able to run on machine. Attempted to reposition pt which made it worse. Staff/MD aware. Dr Muñoz also aware. CVC closed with NS
[2018-06-19 10:28] LABS: HEPATITIS B SURFACE AG Negative (Negative); Hep B Surface Antibodies Non Reactive (.); Hepatitis B Core Ab Total Negative (Negative)
[2018-06-19] MEDS: Chlorhexidine 15 ML PO ×2 (10:44→21:32)
--- NOTE | 2018-06-19 11:16 | NURSING ---
Spoke w/ Dr. Dailey's nurse and gave update regarding pt. She stated Dr. Dailey will call back.
--- NOTE | 2018-06-19 12:12 | PCM.CONS.GEN ---
Problem List (1) LYNNETTE (acute kidney injury) Status: Acute (2) Problem with dialysis access Status: Acute Qualifiers: Encounter type: initial encounter Qualified Code(s): T82.898A - Other specified complication of vascular prosthetic devices, implants and grafts, initial encounter Reason for Consult Date of Consultation: 06/19/18 History of Present Illness: The patient is a 58 year old F who I have been asked to see today by regarding a problem with dialysis access. A written copy of my surgical consult recommendations will be returned to him. 58-year-old female. She is currently in the intensive care unit on a ventilator. She was hospitalized June 15 2018. She was admitted with severe sepsis and acute respiratory failure with hypoxia and acute pneumonia and atrial fibrillation with RVR and acute kidney injury and morbid obesity and chronic tobacco addiction. On June 17, 2018 Naida PRESTON placed a left internal jugular triple-lumen central line. On that same date she placed a right internal jugular percutaneous temporary dialysis catheter. Chest x-ray demonstrated the right IJ line to be in good position. There was right greater than left lower lobe opacification consistent with pneumonia. Suspected pleural effusions. The patient became anuric. She was seen by nephrology who recommended dialysis for volume and metabolic support. Apparently the patient coded twice. Apparently yesterday's hemodialysis session was not performed because of line dysfunction yesterday. I received a consultation today. Medications include methylprednisolone and levofloxacin and she is received 5 doses of Tamiflu. Nasal swab showed influenza A. Respiratory culture showed Streptococcus pneumonia. Legionella antigen negative. Current laboratories notable for white blood cell count of 13.9 and hemoglobin 13.8 and hematocrit 40.9 and platelet count of 240,000 with 89% segs. Her arterial blood gas demonstrates a pH of 7.37 PCO2 17 base excess -10 SaO2 95% on ventilator. BUN is 125 and creatinine is 6.03 both worse since yesterday Past Medical History Past Medical History (Chronic Problems): Chronic Problems Morbid obesity (Chronic) Tobacco use (Chronic) Allergies aspirin Allergy (Verified 06/15/18 20:31) Swelling erythromycin base [Erythromycin Base] Allergy (Verified 06/15/18 20:31) Anaphylaxis Penicillins Allergy (Verified 06/15/18 20:31) Anaphylaxis venom-honey bee [bee venom (honey bee)] Adverse Reaction (Verified 06/15/18 20:31) Other Home Medications: Ambulatory Orders Medication Instructions Recorded NK 06/15/18 Surgical History: - - Left ankle surgery, left arm carpal tunnel surgery, tonsillectomy. Psychiatric History: - - She denies any psychiatric history but following evaluation suspect she has underlying anxiety and depression, possibly other psychiatric illnesses. 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 Smoking Status: Current every day smoker - Patient notes that she is currently smoking 2-3 cigarettes/day. Tobacco Use: Cigarettes Alcohol: None Drugs: None - *Family History Maternal History Items: - - Patient denies any marked maternal or paternal family history including heart disease, diabetes or cancer. Paternal History Items: - - Patient denies any marked maternal or paternal family history including heart disease, diabetes or cancer. Patient Problems: Active and Suspected Problems Severe sepsis (Acute) Acute respiratory failure with hypoxia (Acute) Pneumonia (Acute) Atrial fibrillation with RVR (Acute) LYNNETTE (acute kidney injury) (Acute) Problem with dialysis access (Acute) - Physical Exam General: - - Agitated but shakes her head appropriately to questions asked HEENT: - - Right IJ clotted dialysis catheter still in place. Left IJ triple-lumen in place. OG tube and endotracheal intubation on ventilator. Lungs: - - Clear in the apices. Cardiovascular: Tachycardic, - Extremities: - - Generally edematous Neurological: - - Patient appears to respond appropriately to yes or no had shakes when asked specific questions. She is aware of her name and date of Vital Signs Temp Pulse Resp BP Pulse Ox 99.7 F H 93 30 H 139/111 H 93 06/19/18 11:00 06/19/18 11:00 06/19/18 11:00 06/19/18 11:00 06/19/18 11:00 Oxygen Flow Rate (L/min) 60 Oxygen Delivery Method Mechanical Ventilator Weight: 255 lb 11.779 oz Body Mass Index (BMI) 40.4 Intake and Output for Last 24 Hours 06/17/18 06/18/18 06/19/18 23:59 23:59 23:59 Intake Total 1595.5 / 1595.5 2481.6 / 2481.6 521 / 521 Output Total 110 / 110 3050 / 3050 0 / 0 Balance 1485.5 / 1485.5 -568.4 / -568.4 521 / 521 Microbiology Past 72 Hours 06/16/18 05:20 Gram Stain - Final Transtracheal Aspirate Respiratory Culture - Final Streptococcus pneumoniae 06/15/18 21:40 Blood Culture - Preliminary Blood Culture (Wb) - Anticubital Right No growth in 48 hours. 06/15/18 21:40 Blood Culture - Preliminary Blood Culture (Wb) - Anticubital Left No growth in 48 hours. 06/16/18 11:15 Urine Culture - Final Urine Catheter - Robertson Culture exhibits no growth. 06/16/18 08:10 Gram Stain - Final Sputum, Tracheal Aspirate Respiratory Culture - Final 06/15/18 20:45 Respiratory Panel (PCR) - Final Mucosa - Nose Influenza A (Subtype H1) 06/16/18 11:15 Legionella Antigen - Final Urine Catheter - Robertson 06/16/18 11:15 Streptococcus pneumoniae Antigen (M - Final Urine Catheter - Robertson Laboratory Tests Past 24 Hrs 06/17/18 06/17/18 06/18/18 23:30 23:30 04:10 WBC RBC Hgb Hct MCV MCH MCHC RDW RDW Differential Plt Count MPV Neut % (Auto) Absolute Neuts (auto) Absolute Lymphs (auto) Total Counted Neutrophils % (Manual) Band Neutrophils % Lymphocytes % (Manual) Monocytes % (Manual) Nucleated RBC % Diff Path Review Reviewed Platelet Estimate RBC Morphology Absolute Retic Specimen Type Sample Site pH Bicarbonate Actual POC Total CO2 Base Excess O2 Saturation O2 % ABG pCO2 ABG pO2 [place] Test O2 Delivery Device Vent Mode POC PEEP POC Pressure Suppt Blood Gas Notified Whom Blood Gas Notified Time Sodium Potassium Chloride Carbon Dioxide Anion Gap BUN Creatinine Estim Creat Clear Calc Est GFR (MDRD) Af Amer Est GFR (MDRD) Non-Af BUN/Creatinine Ratio Glucose Calcium Hep Bs Antigen Negative Hep Bs Antibody Non Reactive Hep B Core Total Ab Negative 06/19/18 06/19/18 06/19/18 04:15 04:15 06:13 WBC 13.9 H RBC 4.78 Hgb 13.8 Hct 40.9 MCV 85.6 MCH 28.9 MCHC 33.7 RDW 14.9 H RDW Differential 46.7 H Plt Count 240 MPV 11.5 Neut % (Auto) Not Reportable Absolute Neuts (auto) 13.1 H Absolute Lymphs (auto) 0.42 L Total Counted 100 Neutrophils % (Manual) 89 H Band Neutrophils % 5 Lymphocytes % (Manual) 3 L Monocytes % (Manual) 3 Nucleated RBC % 0.5 Diff Path Review May foll Platelet Estimate ADEQUATE RBC Morphology NORM C+C Absolute Retic 0.07 Specimen Type ART Sample Site L Radial pH 7.37 Bicarbonate Actual 15.7 L POC Total CO2 17 Base Excess -10 L O2 Saturation 95 O2 % 40 ABG pCO2 27.3 L ABG pO2 74 L [place] Test POS O2 Delivery Device Vent Vent Mode CPAP PS POC PEEP 5 POC Pressure Suppt 5 Blood Gas Notified Whom ICU Blood Gas Notified Time 610 Sodium 137 Potassium 4.9 Chloride 101 Carbon Dioxide 19.0 L Anion Gap 17 H BUN 125 H* Creatinine 6.03 H Estim Creat Clear Calc 9.00 Est GFR (MDRD) Af Amer 9 L Est GFR (MDRD) Non-Af 8 L BUN/Creatinine Ratio 20.7 H Glucose 159 H Calcium 7.1 L Hep Bs Antigen Hep Bs Antibody Hep B Core Total Ab POC Glucose 06/19/18 06/18/18 06/18/18 05:24 23:13 18:28 POC Glucose 154 H 144 H 115 H 06/18/18 12:27 POC Glucose 157 H Assessment/Plan All Active Problems Severe sepsis (Acute) Acute respiratory failure with hypoxia (Acute) Pneumonia (Acute) Atrial fibrillation with RVR (Acute) LYNNETTE (acute kidney injury) (Acute) Problem with dialysis access (Acute) Information became immediately available by a second power of associate attorney who stated that the patient had had multiple previously scheduled nephrology appointments which she either canceled or failed to attend. When she is directly asked today whether she wants to be placed on hemodialysis she vigorously shakes her head no. Her brother who is power of associate attorney however states that he is giving permission to proceed with placement of tunneled dialysis catheters. The patient is aware that is likely if she does not continue dialysis. All members are aware of benefit risk complication alternatives to tunneled dialysis catheter placement. At this point I have discussed the situation with Dr. Padilla and it is not clear to me that the patient is not of sound mind and body and able to currently make her own determination. I have contacted risk management. We are tentatively scheduled at 4 PM today in the operating room to place tunneled dialysis catheters. I will defer to risk management and social working staff to assist with deciphering whether informed consent is achieved in proceeding with tunneled catheter placement or whether the patient is in a state of mind able to decline that intervention Adonis Dailey M.D., F.A.C.S.
--- NOTE | 2018-06-19 12:21 | CON.PCM_ITS ---
Problem List (1) LYNNETTE (acute kidney injury) Status: Acute (2) Problem with dialysis access Status: Acute Qualifiers: Encounter type: initial encounter Qualified Code(s): T82.898A - Other specified complication of vascular prosthetic devices, implants and grafts, initial encounter Reason for Consult Date of Consultation: 06/19/18 History of Present Illness: The patient is a 58 year old F who I have been asked to see today by regarding a problem with dialysis access. A written copy of my surgical consult recommendations will be returned to him. 58-year-old female. She is currently in the intensive care unit on a ventilator. She was hospitalized June 15 2018. She was admitted with severe sepsis and acute respiratory failure with hypoxia and acute pneumonia and atrial fibrillation with RVR and acute kidney injury and morbid obesity and chronic tobacco addiction. On June 17, 2018 Naida PRESTON placed a left internal jugular triple-lumen central line. On that same date she placed a right internal jugular percutaneous temporary dialysis catheter. Chest x-ray demonstrated the right IJ line to be in good pos ition. There was right greater than left lower lobe opacification consistent with pneumonia. Suspected pleural effusions. The patient became anuric. She was seen by nephrology who recommended dialysis for volume and metabolic support. Apparently the patient coded twice. Apparently yesterday's hemodialysis session was not performed because of line dysfunction yesterday. I received a consultation today. Medications include methylprednisolone and levofloxacin and she is received 5 doses of Tamiflu. Nasal swab showed influenza A. Respiratory culture showed Streptococcus pneumonia. Legionella antigen negative. Current laboratories notable for white blood cell count of 13.9 and hemoglobin 13.8 and hematocrit 40.9 and platelet count of 240,000 with 89% segs. Her arterial blood gas demonstrates a pH of 7.37 PCO2 17 base excess -10 SaO2 95% on ventilator. BUN is 125 and creatinine is 6.03 both worse since yesterday Past Medical History Past Medical History (Chronic Problems): Chronic Problems Morbid obesity (Chronic) Tobacco use (Chronic) Allergies aspirin Allergy (Verified 06/15/18 20:31) Swelling erythromycin base [Erythromycin Base] Allergy (Verified 06/15/18 20:31) Anaphylaxis Penicillins Allergy (Verified 06/15/18 20:31) Anaphylaxis venom-honey bee [bee venom (honey bee)] Adverse Reaction (Verified 02/16/19 20:31) Other Home Medications: Ambulatory Orders Medication Instructions Recorded NK 06/15/18 Surgical History: - - Left ankle surgery, left arm carpal tunnel surgery, tonsillectomy. Psychiatric History: - - She denies any psychiatric history but following evaluation suspect she has underlying anxiety and depression, possibly other psychiatric illnesses. DIRECT MAIL MARKETER History: No pertinent DIRECT MAIL MARKETER history Lives: With Family - Patient notes that she currently lives with her daughter. Smoking Status: Current every day smoker - Patient notes that she is currently smoking 2-3 cigarettes/day. Tobacco Use: Cigarettes Alcohol: None Drugs: None - *Family History Maternal History Items: - - Patient denies any marked maternal or paternal family history including heart disease, diabetes or cancer. Paternal History Items: - - Patient denies any marked maternal or paternal family history including heart disease, diabetes or cancer. Patient Problems: Active and Suspected Problems Severe sepsis (Acute) Acute respiratory failure with hypoxia (Acute) Pneumonia (Acute) Atrial fibrillation with RVR (Acute) LYNNETTE (acute kidney injury) (Acute) Problem with dialysis access (Acute) - Physical Exam General: - - Agitated but shakes her head appropriately to questions asked HEENT: - - Right IJ clotted dialysis catheter still in place. Left IJ triple- lumen in place. OG tube and endotracheal intubation on ventilator. Lungs: - - Clear in the apices. Cardiovascular: Tachycardic, - Extremities: - - Generally edematous Neurological: - - Patient appears to respond appropriately to yes or no had shakes when asked specific questions. She is aware of her name and date of Vital Signs Temp Pulse Resp BP Pulse Ox 99.7 F H 93 30 H 139/111 H 93 06/19/18 11:00 06/19/18 11:00 06/19/18 11:00 06/19/18 11:06/19/18 11:00 Oxygen Flow Rate (L/min) 60 Oxygen Delivery Method Mechanical Ventilator Weight: 255 lb 11.779 oz Body Mass Index (BMI) 40.4 Intake and Output for Last 24 Hours 06/17/18 06/18/18 06/19/18 23:59 23:59 23:59 Intake Total 1595.5 / 1595.5 2481.6 / 2481.6 521 / 521 Output Total 110 / 110 3050 / 3050 0 / 0 Balance 1485.5 / 1485.5 -568.4 / -568.4 521 / 521 Microbiology Past 72 Hours 06/16/18 05:20 Gram Stain - Final Transtracheal Aspirate Respiratory Culture - Final Streptococcus pneumoniae 06/15/18 21:40 Blood Culture - Preliminary Blood Culture (Wb) - Anticubital Right No growth in 48 hours. 06/15/18 21:40 Blood Culture - Preliminary Blood Culture (Wb) - Anticubital Left No growth in 48 hours. 06/16/18 11:15 Urine Culture - Final Urine Catheter - Robertson Culture exhibits no growth. 06/16/18 08:10 Gram Stain - Final Sputum, Tracheal Aspirate Respiratory Culture - Final 06/15/18 20:45 Respiratory Panel (PCR) - Final Mucosa - Nose Influenza A (Subtype H1) 06/16/18 11:15 Legionella Antigen - Final Urine Catheter - Robertson 06/16/18 11:15 Streptococcus pneumoniae Antigen (M - Final Urine Catheter - Robertson Laboratory Tests Past 24 Hrs 06/17/18 06/17/18 06/18/18 23:30 23:30 04:10 WBC RBC Hgb Hct MCV MCH MCHC RDW RDW Differential Plt Count MPV Neut % (Auto) Absolute Neuts (auto) Absolute Lymphs (auto) Total Counted Neutrophils % (Manual) Band Neutrophils % Lymphocytes % (Manual) Monocytes % (Manual) Nucleated RBC % Diff Path Review Reviewed Platelet Estimate RBC Morphology Absolute Retic Specimen Type Sample Site pH Bicarbonate Actual POC Total CO2 Base Excess O2 Saturation O2 % ABG pCO2 ABG pO2 [place] Test O2 Delivery Device Vent Mode POC PEEP POC Pressure Suppt Blood Gas Notified Whom Blood Gas Notified Time Sodium Potassium Chloride Carbon Dioxide Anion Gap BUN Creatinine Estim Creat Clear Calc Est GFR (MDRD) Af Amer Est GFR (MDRD) Non-Af BUN/Creatinine Ratio Glucose Calcium Hep Bs Antigen Negative Hep Bs Antibody Non Reactive Hep B Core Total Ab Negative 06/19/18 06/19/18 06/19/18 04:15 04:15 06:13 WBC 13.9 H RBC 4.78 Hgb 13.8 Hct 40.9 MCV 85.6 MCH 28.9 MCHC 33.7 RDW 14.9 H RDW Differential 46.7 H Plt Count 240 MPV 11.5 Neut % (Auto) Not Reportable Absolute Neuts (auto) 13.1 H Absolute Lymphs (auto) 0.42 L Total Counted 100 Neutrophils % (Manual) 89 H Band Neutrophils % 5 Lymphocytes % (Manual) 3 L Monocytes % (Manual) 3 Nucleated RBC % 0.5 Diff Path Review May foll Platelet Estimate ADEQUATE RBC Morphology NORM C+C Absolute Retic 0.07 Specimen Type ART Sample Site L Radial pH 7.37 Bicarbonate Actual 15.7 L POC Total CO2 17 Base Excess -10 L O2 Saturation 95 O2 % 40 ABG pCO2 27.3 L ABG pO2 74 L [place] Test POS O2 Delivery Device Vent Vent Mode CPAP PS POC PEEP 5 POC Pressure Suppt 5 Blood Gas Notified Whom ICU MD Blood Gas Notified Time 610 Sodium 137 Potassium 4.9 Chloride 101 Carbon Dioxide 19.0 L Anion Gap 17 H BUN 125 H* Creatinine 6.03 H Estim Creat Clear Calc 9.00 Est GFR (MDRD) Af Amer 9 L Est GFR (MDRD) Non-Af 8 L BUN/Creatinine Ratio 20.7 H Glucose 159 H Calcium 7.1 L Hep Bs Antigen Hep Bs Antibody Hep B Core Total Ab POC Glucose 06/19/18 06/18/18 06/18/18 05:24 23:13 18:28 POC Glucose 154 H 144 H 115 H 06/18/18 12:27 POC Glucose 157 H Assessment/Plan All Active Problems Severe sepsis (Acute) Acute respiratory failure with hypoxia (Acute) Pneumonia (Acute) Atrial fibrillation with RVR (Acute) LYNNETTE (acute kidney injury) (Acute) Problem with dialysis access (Acute) Information became immediately available by a second power of associate professor of surgery who stated that the patient had had multiple previously scheduled nephrology ap pointments which she either canceled or failed to attend. When she is directly asked today whether she wants to be placed on hemodialysis she vigorously shakes her head no. Her brother who is power of associate professor of surgery however states that he is giving permission to proceed with placement of tunneled dialysis catheters. The patient is aware that is likely if she does not continue dialysis. All members are aware of benefit risk complication alternatives to tunneled dialysis catheter placement. At this point I have discussed the situation with Dr. Padilla and it is not clear to me that the patient is not of sound mind and body and able to currently make her own determination. I have contacted risk management. We are tentatively scheduled at 4 PM today in the operating room to place tunneled dialysis catheters. I will defer to risk management and social working staff to assist with deciphering whether informed consent is achieved in proceeding with tunneled catheter placement or whether the patient is in a state of mind able to decline that intervention Adonis Dailey M.D., F.A.C.S.
[2018-06-19 12:38] LABS: Pathologist Review Reviewed
--- NOTE | 2018-06-19 12:38 | CASEMGMT ---
Addendum entered by Sydnie Bautista 06/19/18 12:59: SW called Jesus Iqbal and left a message to call this SW back regarding POA papers. TATUM Wei, FLIGHT NURSE Original Note: SW was asked to speak w/pt, as pt has indicated to surgeon she does not want dialysis, however pt's brother Ezequiel who is stating he is POA is stating he wants her to have surgery for the dialysis catheter. SW spoke w/brother Ezequiel, along w/RN. SW and RN asked pt's brother to bring in the POA papers as they are not in the chart. Pt's brother states that they are with Jesus Ge's office, he will look into getting the forms. SW then spoke w/pt's brother about pt's wishes, if he ever spoke to her about her wishes in regard to her health care. He states that they have not spoken about this. He states he did ask her if she wanted to however, and pt indicated to him that she does not want to . He states that if she does not want to , then she needs to go through with the dialysis and she now doesn't have a choice, it's his choice. SW will continue to follow, given that pt is on Precedex and on a ventilator, this SW is not able to assess pt in regard to her ability to make decisions. SW did let Garima the information security risk analyst and the pt's hospitalist know all of the above information. TATUM Wei, FLIGHT NURSE
--- NOTE | 2018-06-19 12:55 | NURSING ---
ROBIN temp HD catheter removed without difficulty per Angela Sample bucket turner
[2018-06-19 13:06] LABS: Bedside Glucose 130 mg/dL (70-110)
[2018-06-19] MEDS: 0.9% NaCl Peripheral Flush Adult/Peds IV (13:06)
--- NOTE | 2018-06-19 14:29 | DIALYSIS ---
1252. Catheter dressing was removed. Chloroprep used to clean the site. Sutures removed. Temporary Right IJ dialysis catheter removed. Pressure applied x 10 minutes. Pressure dressing placed. Report was given to DEENA Ross. She will continue to monitor the site.
--- NOTE | 2018-06-19 15:35 | NURSING ---
Pt to OR via OR staff
[2018-06-19] MEDS: Bupivacaine Mpf 0.5% 30 ML VIAL (16:00)
[2018-06-19] MEDS: Heparin 10,000 UNITS/10 ML Vial 10000 UNITS (16:10)
--- NOTE | 2018-06-19 16:23 | PCM.OPRPT ---
Problem List (1) LYNNETTE (acute kidney injury) Status: Acute (2) Problem with dialysis access Status: Acute Qualifiers: Encounter type: initial encounter Qualified Code(s): T82.898A - Other specified complication of vascular prosthetic devices, implants and grafts, initial encounter Report of Operation Date of Procedure: 06/19/18 Pre-Operative Diagnosis: Need for dialysis access Post-Operative Diagnosis: Same Surgery/Procedure Performed:: Right internal jugular tunneled pre-curved 19 cm palindrome catheter placement Description of Surgical Findings:: Timeout and informed consent was obtained. 58-year-old female was taken to the operating room placed on the table. She received 900 mg of clindamycin preoperatively. The right neck and chest were sterilely prepped and draped. She presented from the intensive care unit already intubated on the ventilator. Under ultrasound guidance the right internal jugular vein was identified. 0.5% Marcaine was used as local anesthetic and under careful ultrasound inspection was carefully injected. Micropuncture needle was inserted. Micropuncture wire inserted. Micropuncture sheath inserted. 035 J-wire was inserted. Local was instilled down upon the right chest wall. An appropriate exit site a small stab incision was created. The 19 cm pre-curved palindrome catheter was tunneled from the chest to the neck site. Fluoroscopy demonstrated good positioning. Serial dilatation was performed over the wire. Then the sheath dilator was inserted over the wire. The dilator and wire were removed. The catheter was advanced through the sheath. The sheath was split. The catheter was positioned at the SVC atrial junction. Good positioning was achieved. The catheter aspirated and flushed easily. The catheter was flushed with saline and then 2 cc per channel of heparinized saline. The neck site was closed with interrupted 5-0 Vicryl subdermal stitch. The catheter was secured to skin with interrupted 3-0 nylon. Silver impregnated dressing was applied on the catheter exit site. Telfa OpSite dressing and Steri-Strips on the neck site. Sponge and instrument and needle counts were reported to the surgeon to be correct. Blood loss was minimal. The patient tolerated the procedure well was taken back to the intensive care unit in satisfactory condition without apparent complication. Stat portable chest x-ray is pending. Specimens none. Drains none. Blood loss minimal. Adonis Dailey M.D., F.A.C.S. Type of Anesthesia:: General Anesthesiologist: Brian Espinoza
--- NOTE | 2018-06-19 16:25 | NURSING ---
Pt back to ICU 5 from OR via OR staff; VSS; Precedex drip maintained.
--- NOTE | 2018-06-19 16:55 | RAD_ITS ---
STUDY: X-RAY CHEST REASON FOR EXAM: Female, 58 years old. Line placement TECHNIQUE: Frontal view of the chest COMPARISON: 06/17/2018 FINDINGS: There is a right-sided central catheter with its tip in the superior vena cava. The remainder of the support lines and tubes are unchanged. The heart is enlarged, but stable. There are stable bilateral lower lobe opacities, right greater than left. The visualized osseous structures are within normal limits. RAD/CXR for Line Placement IMPRESSION: Satisfactory position of the right-sided central catheter. Otherwise, no significant change. Electronically Signed: Vidal Velasquez, at 17:22 EST Tel , Service support ,
[2018-06-19 18:07] LABS: Bedside Glucose 134 mg/dL (70-110)
--- NOTE | 2018-06-19 20:54 | DIALYSIS ---
Hemodialysis completed as ordered. No issues with new CVC today. -2000ml off. stable t/o tx. CVC locked with heparin to each lumen fill volume. Report at bedside to Ezio SHAFFER.
[2018-06-19] MEDS: Magnesium Citrate 300 ML GT (21:31)
[2018-06-19 23:56] LABS: Bedside Glucose 141 mg/dL (70-110)
[2018-06-20] VITALS (37 sets, daily range): BP systolic 104–144; BP diastolic 81–99; PULSE 26–94; RESP 14–33; TEMP 36–37.6; O2SAT 88–97
[2018-06-20 05:10] LABS: Hematocrit 40.4 % (37-47); Hemoglobin 13.8 g/dl (12.0-15.0); Mean Corp Hgb Conc 34.2 g/gl (32-36); Mean Corpuscular Hgb 28.8 pg (27.0-32.0); Mean Corpuscular Volume 84.2 fL (81-99); Mean Platelet Vol. 11.2 fl (6.2-12.0); Platelet Count 248 K/mm3 (150-450); RBC Distribution Width CV 14.7 % (11.6-14.6); RBC Distribution Width SD 44.3 fl (35.1-43.9); White Blood Count 13.7 K/mm3 (4.4-11.0)
[2018-06-20 05:15] LABS: ALB/GLOB Ratio 0.6 RATIO (0.9-2.4); AST(SGOT) 497 U/L (15-37); Alanine Aminotransfer ALT/SGPT 890 U/L (13-56); Albumin, Serum 2.2 g/dL (3.2-5.0); Alkaline Phosphatase 119 U/L (45-117); Anion Gap 16 (5-15); BUN 110 mg/dL (7-18); BUN/Creat Ratio 18.6 RATIO (10-20); Chloride 100 mmol/L (98-107); EST Glomerular Filtration Rate 8 mL/min (>60); Est Glom Filt Rate - Afr Amer 10 mL/min (>60); Estimated Creatinine Clearance 9.19 ml/min; Glucose 138 mg/dL (74-106); Potassium 4.9 mmol/L (3.5-5.1); Protein, Total 6.2 g/dL (6.4-8.2); Sodium Level 138 mmol/L (136-145)
[2018-06-20 05:17] LABS: Differential Indicated MANUAL DIFF; POSITIVE COUNT NO; POSITIVE DIFFERENTIAL NO; POSITIVE MORPHOLOGY YES
[2018-06-20] MEDS: Fleet Enema 1 ML RECTAL (06:03)
[2018-06-20] MEDS: CHLORHEXIDINE GLUC 2% CLOTH 1 EACH TOWELETTE TOPICAL (06:14)
[2018-06-20] MEDS: NYSTATIN 500,000 UNIT/5 ML UDC 500000 UNIT PO ×4 (06:19→23:14)
--- NOTE | 2018-06-20 06:23 | PCM.PN.INT ---
Subjective: Patient did okay overnight. Patient did have a tunneled hemodialysis line placed yesterday and received hemodialysis with 2 L removal. Patient did have some elevated temperatures, but otherwise was hemodynamically stable. Patient continues to have marginal urine output. General: Alert, Cooperative - Intermittently, - - Highly anxious with conversation, but fair vent synchrony. HEENT: Atraumatic, PERRLA, EOMI, Normocephalic, - - Slight scleral injection without icterus Oral: Moist Mucosa, No Gingival or Mucosal Lesions/ Ulcerations Neck: Supple, No JVD, No Nodes, Trachea Midline Lungs: No rhonchi, No wheeze, No rales, Diminished, - - Symmetric expansion. No dullness to percussion. Cardiovascular: Regular rate, Regular Rhythm, Normal S1, Normal S2, No murmurs, No rub noted, No Gallop Abdomen: Bowel Sounds Present, Soft, Non Tender, Non-Distended, Obese Extremities: No clubbing, No cyanosis, Edema Skin: No rashes, No breakdown Musculoskeletal: No Tenderness to Palpation of Joints or Extremities Lymphatic: No Cervical, Supraclavicular, or Inguinal Adenopathy Neurological: Cranial nerves II-XII grossly intact, Neuro grossly intact, Motor Exam 5/5 strength throughout Psych/Mental Status: Impulsive, Restless Vital Signs Temp Pulse Resp BP Pulse Ox 37.6 C H 86 33 H 133/89 H 93 06/20/18 04:00 06/20/18 05:09 06/20/18 05:09 06/20/18 04:00 06/20/18 05:09 Oxygen Flow Rate (L/min) 85 Oxygen Delivery Method Mechanical Ventilator Weight: 116.2 kg Body Mass Index (BMI) 40.4 Intake and Output for Last 24 Hours 06/18/18 06/19/18 06/20/18 23:59 23:59 23:59 Intake Total 2481.6 / 2481.6 976 / 976 709 / 709 Output Total 3050 / 3050 1999 / 1999 800 / 800 Balance -568.4 / -568.4 -1024 / -1024 -91 / -91 Labs (Last 48 Hours) 06/17/18 06/17/18 06/18/18 23:30 23:30 04:10 WBC RBC Hgb Hct MCV MCH MCHC RDW RDW Differential Plt Count MPV Neut % (Auto) Absolute Neuts (auto) Absolute Lymphs (auto) Total Counted Neutrophils % (Manual) Band Neutrophils % Lymphocytes % (Manual) Monocytes % (Manual) Nucleated RBC % Diff Path Review Reviewed Platelet Estimate RBC Morphology Absolute Retic PT INR Specimen Type Sample Site pH Bicarbonate Actual POC Total CO2 Base Excess O2 Saturation O2 % ABG pCO2 ABG pO2 [place] Test O2 Delivery Device Vent Mode POC PEEP POC Pressure Suppt Blood Gas Notified Whom Blood Gas Notified Time Sodium Potassium Chloride Carbon Dioxide Anion Gap BUN Creatinine Estim Creat Clear Calc Est GFR (MDRD) Af Amer Est GFR (MDRD) Non-Af BUN/Creatinine Ratio Glucose Calcium Total Bilirubin Direct Bilirubin AST ALT Alkaline Phosphatase Total Protein Albumin Globulin Albumin/Globulin Ratio Hep Bs Antigen Negative Hep Bs Antibody Non Reactive Hep B Core Total Ab Negative POC Glucose 06/18/18 06/18/18 06/18/18 04:10 06:10 12:27 WBC RBC Hgb Hct MCV MCH MCHC RDW RDW Differential Plt Count MPV Neut % (Auto) Absolute Neuts (auto) Absolute Lymphs (auto) Total Counted Neutrophils % (Manual) Band Neutrophils % Lymphocytes % (Manual) Monocytes % (Manual) Nucleated RBC % Diff Path Review Platelet Estimate RBC Morphology Absolute Retic PT 19.6 H INR 1.7 Specimen Type Sample Site pH Bicarbonate Actual POC Total CO2 Base Excess O2 Saturation O2 % ABG pCO2 ABG pO2 [place] Test O2 Delivery Device Vent Mode POC PEEP POC Pressure Suppt Blood Gas Notified Whom Blood Gas Notified Time Sodium Potassium Chloride Carbon Dioxide Anion Gap BUN Creatinine Estim Creat Clear Calc Est GFR (MDRD) Af Amer Est GFR (MDRD) Non-Af BUN/Creatinine Ratio Glucose Calcium Total Bilirubin 2.80 H Direct Bilirubin 1.91 H AST 3890 H ALT 2670 H Alkaline Phosphatase 119 H Total Protein 6.2 L Albumin 2.0 L Globulin 4.2 Albumin/Globulin Ratio Hep Bs Antigen Hep Bs Antibody Hep B Core Total Ab POC Glucose 157 H 06/18/18 06/18/18 06/19/18 18:28 23:13 04:15 WBC 13.9 H RBC 4.78 Hgb 13.8 Hct 40.9 MCV 85.6 MCH 28.9 MCHC 33.7 RDW 14.9 H RDW Differential 46.7 H Plt Count 240 MPV 11.5 Neut % (Auto) Not Reportable Absolute Neuts (auto) 13.1 H Absolute Lymphs (auto) 0.42 L Total Counted 100 Neutrophils % (Manual) 89 H Band Neutrophils % 5 Lymphocytes % (Manual) 3 L Monocytes % (Manual) 3 Nucleated RBC % 0.5 Diff Path Review Reviewed Platelet Estimate ADEQUATE RBC Morphology NORM C+C Absolute Retic 0.07 PT INR Specimen Type Sample Site pH Bicarbonate Actual POC Total CO2 Base Excess O2 Saturation O2 % ABG pCO2 ABG pO2 [place] Test O2 Delivery Device Vent Mode POC PEEP POC Pressure Suppt Blood Gas Notified Whom Blood Gas Notified Time Sodium Potassium Chloride Carbon Dioxide Anion Gap BUN Creatinine Estim Creat Clear Calc Est GFR (MDRD) Af Amer Est GFR (MDRD) Non-Af BUN/Creatinine Ratio Glucose Calcium Total Bilirubin Direct Bilirubin AST ALT Alkaline Phosphatase Total Protein Albumin Globulin Albumin/Globulin Ratio Hep Bs Antigen Hep Bs Antibody Hep B Core Total Ab POC Glucose 115 H 144 H 06/19/18 06/19/18 06/19/18 04:15 05:24 06:13 WBC RBC Hgb Hct MCV MCH MCHC RDW RDW Differential Plt Count MPV Neut % (Auto) Absolute Neuts (auto) Absolute Lymphs (auto) Total Counted Neutrophils % (Manual) Band Neutrophils % Lymphocytes % (Manual) Monocytes % (Manual) Nucleated RBC % Diff Path Review Platelet Estimate RBC Morphology Absolute Retic PT INR Specimen Type ART Sample Site L Radial pH 7.37 Bicarbonate Actual 15.7 L POC Total CO2 17 Base Excess -10 L O2 Saturation 95 O2 % 40 ABG pCO2 27.3 L ABG pO2 74 L [place] Test POS O2 Delivery Device Vent Vent Mode CPAP PS POC PEEP 5 POC Pressure Suppt 5 Blood Gas Notified Whom ICU MD Blood Gas Notified Time 610 Sodium 137 Potassium 4.9 Chloride 101 Carbon Dioxide 19.0 L Anion Gap 17 H BUN 125 H* Creatinine 6.03 H Estim Creat Clear Calc 9.00 Est GFR (MDRD) Af Amer 9 L Est GFR (MDRD) Non-Af 8 L BUN/Creatinine Ratio 20.7 H Glucose 159 H Calcium 7.1 L Total Bilirubin Direct Bilirubin AST ALT Alkaline Phosphatase Total Protein Albumin Globulin Albumin/Globulin Ratio Hep Bs Antigen Hep Bs Antibody Hep B Core Total Ab POC Glucose 154 H 06/19/18 06/19/18 06/19/18 12:56 18:00 23:42 WBC RBC Hgb Hct MCV MCH MCHC RDW RDW Differential Plt Count MPV Neut % (Auto) Absolute Neuts (auto) Absolute Lymphs (auto) Total Counted Neutrophils % (Manual) Band Neutrophils % Lymphocytes % (Manual) Monocytes % (Manual) Nucleated RBC % Diff Path Review Platelet Estimate RBC Morphology Absolute Retic PT INR Specimen Type Sample Site pH Bicarbonate Actual POC Total CO2 Base Excess O2 Saturation O2 % ABG pCO2 ABG pO2 [place] Test O2 Delivery Device Vent Mode POC PEEP POC Pressure Suppt Blood Gas Notified Whom Blood Gas Notified Time Sodium Potassium Chloride Carbon Dioxide Anion Gap BUN Creatinine Estim Creat Clear Calc Est GFR (MDRD) Af Amer Est GFR (MDRD) Non-Af BUN/Creatinine Ratio Glucose Calcium Total Bilirubin Direct Bilirubin AST ALT Alkaline Phosphatase Total Protein Albumin Globulin Albumin/Globulin Ratio Hep Bs Antigen Hep Bs Antibody Hep B Core Total Ab POC Glucose 130 H 134 H 141 H 06/20/18 06/20/18 04:35 04:35 WBC 13.7 H RBC 4.80 Hgb 13.8 Hct 40.4 MCV 84.2 MCH 28.8 MCHC 34.2 RDW 14.7 H RDW Differential 44.3 H Plt Count 248 MPV 11.2 Neut % (Auto) Not Reportable Absolute Neuts (auto) Not Reportable Absolute Lymphs (auto) Total Counted Pending Neutrophils % (Manual) Band Neutrophils % Lymphocytes % (Manual) Monocytes % (Manual) Nucleated RBC % Diff Path Review Platelet Estimate RBC Morphology Absolute Retic PT INR Specimen Type Sample Site pH Bicarbonate Actual POC Total CO2 Base Excess O2 Saturation O2 % ABG pCO2 ABG pO2 [place] Test O2 Delivery Device Vent Mode POC PEEP POC Pressure Suppt Blood Gas Notified Whom Blood Gas Notified Time Sodium 138 Potassium 4.9 Chloride 100 Carbon Dioxide 22.0 Anion Gap 16 H BUN 110 H* Creatinine 5.90 H Estim Creat Clear Calc 9.19 Est GFR (MDRD) Af Amer 10 L Est GFR (MDRD) Non-Af 8 L BUN/Creatinine Ratio 18.6 Glucose 138 H Calcium 7.0 L Total Bilirubin 3.00 H Direct Bilirubin AST 497 H ALT 890 H Alkaline Phosphatase 119 H Total Protein 6.2 L Albumin 2.2 L Globulin 4.0 Albumin/Globulin Ratio 0.6 L Hep Bs Antigen Hep Bs Antibody Hep B Core Total Ab POC Glucose Microbiology 06/16/18 05:20 Transtracheal Aspirate Gram Stain - Final 06/16/18 05:20 Transtracheal Aspirate Respiratory Culture - Final Streptococcus pneumoniae 06/15/18 21:40 Blood Culture (Wb) - Anticubital Right Blood Culture - Preliminary No growth in 48 hours. 06/15/18 21:40 Blood Culture (Wb) - Anticubital Left Blood Culture - Preliminary No growth in 48 hours. 06/16/18 11:15 Urine Catheter - Robertson Urine Culture - Final Culture exhibits no growth. 06/16/18 08:10 Sputum, Tracheal Aspirate Gram Stain - Final 06/16/18 08:10 Sputum, Tracheal Aspirate Respiratory Culture - Final Clinical Impression(s) from Imaging Studies Chest X-Ray 06/19/18 16:55 IMPRESSION: Satisfactory position of the right-sided central catheter. Otherwise, no significant change. Electronically Signed: Vidal [place], at 17:22 EST Tel , Service support , Medical Necessity - Tobacco Use Smoking Status: Current every day smoker - Patient notes that she is currently smoking 2-3 cigarettes/day. Tobacco Use: Cigarettes Assessment/Plan All Active Problems Severe sepsis (Acute) Acute respiratory failure with hypoxia (Acute) Pneumonia (Acute) Atrial fibrillation with RVR (Acute) LYNNETTE (acute kidney injury) (Acute) Problem with dialysis access (Acute) RECOMMENDATIONS: 1. Attempt aggressive bowel regimen 2. Continue Precedex therapy for sedation, fentanyl drip for pain 3. Wean empiric steroid therapy, will need to watch blood sugars closely 4. Await hemodialysis, volume removal as tolerated 5. Continue antibiotics. 6. Continue bronchodilators IMPRESSIONS: 1. Septic shock with multiorgan system dysfunction secondary to severe community-acquired pneumonia RESOLVED> patient influenza A positive. Patient was originally requiring 3 separate pressors to maintain adequate blood pressure. This may have been complicated by underlying rate control for A. fib. Patient currently off of all pressor therapy. We will continue to monitor. Patient is growing pneumococcus on sputum culture. Patient is responding well to Levaquin therapy. 2. Acute hypoxemic and hypercarbic respiratory failure As noted above, clinical concern for severe community-acquired pneumonia. In addition, the patient's brother does have a history of unprovoked venous thromboembolic disease, raising the suspicion for PE as a potential contribution to the patient's decompensation. Patient has been able to pass spontaneous breathing trial in the past. Patient is currently on a trial. Anticipate extubation later today. Will likely hold Precedex therapy. 3. New onset atrial fibrillation with rapid ventricular response/troponin elevation/cardiopulmonary arrest Although the patient presented to the hospital with new onset atrial fibrillation, her cardiac arrest was most likely precipitated by hypoxemia. She has been stabilized at this point. The patient converted to normal sinus rhythm overnight following administration of amiodarone, which has been discontinued at this time. We will continue current supportive measures as noted above. Echocardiogram is showing an EF of 40%. Troponins are relatively unimpressive given patient's clinical course. Cardiology is following. 4. Acute kidney injury/shock liver Shock liver has essentially resolved. However, patient's creatinine is significantly elevated, along with BUN. Patient continues to have marginal urine output. Defer to nephrology on timing of hemodialysis. Unclear if patient will recover renal function. If patient refuses dialysis after removal of endotracheal tube and sedation, hospice measures would likely be indicated. 5. Metabolic encephalopathy Likely secondary to increased metabolic demands in the setting of #1 coupled with hypercarbia and uremia. Despite having gone into cardiac arrest on 2 separate occasions during this hospitalization, the patient's mentation appears to be intact. Continue current supportive measures as noted above. 6. Unknown medical history/morbid obesity/tobacco dependency Complicates care, management, recovery and prognosis. Nicotine replacement therapy can be considered once the patient is deemed to be stabilized clinically. Okay to initiate tube feeds. TIME: 33 minutes of critical care time was spent addressing the patient's septic shock, multiorgan system dysfunction, severe community-acquired pneumonia, acute respiratory failure, new onset atrial fibrillation, cardiac arrest, acute kidney injury, metabolic encephalopathy, review of all data and collaboration with the care team. (5 AM to 6 AM) Code Visit 9xxxx: [id number] Critical care first hour
[2018-06-20 06:26] LABS: Bedside Glucose 129 mg/dL (70-110)
[2018-06-20 06:50] LABS: Lymphocyte 7 % (19-41); Monocyte 5 % (0-10); Neutrophil-Band 1 % (0-5); Neutrophil-Segmented 87 % (47-70); Total Cells Counted 100 (MANUAL DIFF)
[2018-06-20 06:51] LABS: Platelet Estimate ADEQUATE (ADEQ); Platelet Morphology LARGE; Red Cell Morphology NORM C+C NORMAL (NORM C&C)
[2018-06-20 06:52] LABS: Absolute Lymphocyte Count 0.96 X10^3/ul (0.83-4.51); Absolute Neutrophil Count 12.6 X10^3/uL (2.0-7.7)
[2018-06-20] MEDS: Ipratropium/Albuterol Sulfate 3 ML AMPUL.NEB INHALATION ×4 (06:55→18:50)
--- NOTE | 2018-06-20 07:03 | PCM.PN.SRG ---
Patient Problems: Active and Suspected Problems Severe sepsis (Acute) Acute respiratory failure with hypoxia (Acute) Pneumonia (Acute) Atrial fibrillation with RVR (Acute) LYNNETTE (acute kidney injury) (Acute) Problem with dialysis access (Acute) Subjective: Pt appears to be comfortable on vent No reported concerns from nursing - Physical Exam Lungs: - - Right neck and chest: clean, dry, intact Abdomen: Bowel Sounds Present, Soft, Non Tender Vital Signs Temp Pulse Resp BP Pulse Ox 99.6 F H 90 33 H 125/81 H 93 06/20/18 04:00 06/20/18 06:00 06/20/18 06:00 06/20/18 06:00 06/20/18 06:00 Oxygen Flow Rate (L/min) 85 Oxygen Delivery Method Mechanical Ventilator Weight: 256 lb 2.834 oz Body Mass Index (BMI) 40.4 Intake and Output for Last 24 Hours 06/18/18 06/19/18 06/20/18 23:59 23:59 23:59 Intake Total 2481.6 / 2481.6 976 / 976 955 / 955 Output Total 3050 / 3050 1999 / 1999 805 / 805 Balance -568.4 / -568.4 -1024 / -1024 150 / 150 Microbiology Past 72 Hours 06/16/18 05:20 Gram Stain - Final Transtracheal Aspirate Respiratory Culture - Final Streptococcus pneumoniae 06/15/18 21:40 Blood Culture - Preliminary Blood Culture (Wb) - Anticubital Right No growth in 48 hours. 06/15/18 21:40 Blood Culture - Preliminary Blood Culture (Wb) - Anticubital Left No growth in 48 hours. 06/16/18 11:15 Urine Culture - Final Urine Catheter - Robertson Culture exhibits no growth. 06/16/18 08:10 Gram Stain - Final Sputum, Tracheal Aspirate Respiratory Culture - Final Laboratory Tests Past 24 Hrs 06/17/18 06/17/18 06/19/18 23:30 23:30 04:15 WBC RBC Hgb Hct MCV MCH MCHC RDW RDW Differential Plt Count MPV Neut % (Auto) Absolute Neuts (auto) 13.1 H Absolute Lymphs (auto) 0.42 L Total Counted 100 Neutrophils % (Manual) 89 H Band Neutrophils % 5 Lymphocytes % (Manual) 3 L Monocytes % (Manual) 3 Nucleated RBC % 0.5 Diff Path Review Reviewed Platelet Estimate ADEQUATE Plt Morphology Comment RBC Morphology NORM C+C Absolute Retic 0.07 Sodium Potassium Chloride Carbon Dioxide Anion Gap BUN Creatinine Estim Creat Clear Calc Est GFR (MDRD) Af Amer Est GFR (MDRD) Non-Af BUN/Creatinine Ratio Glucose Calcium Total Bilirubin AST ALT Alkaline Phosphatase Total Protein Albumin Globulin Albumin/Globulin Ratio Hep Bs Antigen Negative Hep Bs Antibody Non Reactive Hep B Core Total Ab Negative 06/20/18 06/20/18 04:35 04:35 WBC 13.7 H RBC 4.80 Hgb 13.8 Hct 40.4 MCV 84.2 MCH 28.8 MCHC 34.2 RDW 14.7 H RDW Differential 44.3 H Plt Count 248 MPV 11.2 Neut % (Auto) Not Reportable Absolute Neuts (auto) 12.6 H Absolute Lymphs (auto) 0.96 Total Counted 100 Neutrophils % (Manual) 87 H Band Neutrophils % 1 Lymphocytes % (Manual) 7 L Monocytes % (Manual) 5 Nucleated RBC % Diff Path Review May foll Platelet Estimate ADEQUATE Plt Morphology Comment LARGE RBC Morphology NORM C+C Absolute Retic Sodium 138 Potassium 4.9 Chloride 100 Carbon Dioxide 22.0 Anion Gap 16 H BUN 110 H* Creatinine 5.90 H Estim Creat Clear Calc 9.19 Est GFR (MDRD) Af Amer 10 L Est GFR (MDRD) Non-Af 8 L BUN/Creatinine Ratio 18.6 Glucose 138 H Calcium 7.0 L Total Bilirubin 3.00 H AST 497 H ALT 890 H Alkaline Phosphatase 119 H Total Protein 6.2 L Albumin 2.2 L Globulin 4.0 Albumin/Globulin Ratio 0.6 L Hep Bs Antigen Hep Bs Antibody Hep B Core Total Ab POC Glucose 06/20/18 06/19/18 06/19/18 06:17 23:42 18:00 POC Glucose 129 H 141 H 134 H 06/19/18 12:56 POC Glucose 130 H Medical Necessity - Tobacco Use Smoking Status: Current every day smoker - Patient notes that she is currently smoking 2-3 cigarettes/day. Tobacco Use: Cigarettes Assessment/Plan All Active Problems Severe sepsis (Acute) Acute respiratory failure with hypoxia (Acute) Pneumonia (Acute) Atrial fibrillation with RVR (Acute) LYNNETTE (acute kidney injury) (Acute) Problem with dialysis access (Acute) Functioning dialysis catheters in good position.
[2018-06-20 07:08] LABS: Absolute Nucleated RBC Count 0.07 10^3/uL (0-5); NRBC Flagged by Analyzer 0.5 % (0-5)
--- NOTE | 2018-06-20 08:01 | PCM.PROGNOTE ---
Patient Problems: Active and Suspected Problems Severe sepsis (Acute) Acute respiratory failure with hypoxia (Acute) Pneumonia (Acute) Atrial fibrillation with RVR (Acute) LYNNETTE (acute kidney injury) (Acute) Problem with dialysis access (Acute) Subjective: Chief complaint: Follow-up after admission for septic shock due to community acquired pneumonia, acute hypoxic and hypercapnic respiratory failure, acute renal failure, new onset A. fib with RVR, status post cardiac arrest and shock liver. Patient seen and examined. No acute events overnight. She had tunneled dialysis catheter placed yesterday and had hemodialysis, 2 L of fluid removed. This morning, she is alert, awake, remains intubated. She did have spikes of low-grade fever yesterday evening, blood pressure and heart rate are maintained. - Physical Exam General: Alert, Cooperative, - - She is less agitated and restless compared to yesterday. HEENT: Atraumatic, PERRLA, EOMI, Normocephalic Oral: Moist Mucosa, No Gingival or Mucosal Lesions/ Ulcerations Neck: Supple, No JVD, Negative Carotid Bruits, Trachea Midline, Thyroid Normal Size and Texture Lungs: No rhonchi, No rales, Diminished, Rhonchi, Short of Breath Cardiovascular: Regular rate, Regular Rhythm, Normal S1, Normal S2, PMI Normal Abdomen: Bowel Sounds Present, Soft, Non Tender, Non-Distended, No Hepato-splenomegaly, Obese Extremities: No clubbing, No cyanosis, Edema - Trace edema. Skin: No rashes, No breakdown Lymphatic: No Cervical, Supraclavicular, or Inguinal Adenopathy Neurological: Cranial nerves II-XII grossly intact, Neuro grossly intact Psych/Mental Status: Agitated, Restless Vital Signs Temp Pulse Resp BP Pulse Ox 99.6 F H 90 33 H 125/81 H 93 06/20/18 04:00 06/20/18 06:00 06/20/18 06:00 06/20/18 06:00 06/20/18 06:00 Oxygen Flow Rate (L/min) 85 Oxygen Delivery Method Mechanical Ventilator Weight: 256 lb 2.834 oz Body Mass Index (BMI) 40.4 Intake and Output for Last 24 Hours 06/18/18 06/19/18 06/20/18 23:59 23:59 23:59 Intake Total 2481.6 / 2481.6 976 / 976 955 / 955 Output Total 3050 / 3050 1999 805 / 805 Balance -568.4 / -568.4 -1024 / -1024 150 / 150 Microbiology Past 72 Hours 06/16/18 05:20 Gram Stain - Final Transtracheal Aspirate Respiratory Culture - Final Streptococcus pneumoniae 06/15/18 21:40 Blood Culture - Preliminary Blood Culture (Wb) - Anticubital Right No growth in 48 hours. 06/15/18 21:40 Blood Culture - Preliminary Blood Culture (Wb) - Anticubital Left No growth in 48 hours. 06/16/18 11:15 Urine Culture - Final Urine Catheter - Robertson Culture exhibits no growth. 06/16/18 08:10 Gram Stain - Final Sputum, Tracheal Aspirate Respiratory Culture - Final Laboratory Tests Past 24 Hrs 06/17/18 06/17/18 06/19/18 23:30 23:30 04:15 WBC RBC Hgb Hct MCV MCH MCHC RDW RDW Differential Plt Count MPV Neut % (Auto) Absolute Neuts (auto) Absolute Lymphs (auto) Total Counted Neutrophils % (Manual) Band Neutrophils % Lymphocytes % (Manual) Monocytes % (Manual) Nucleated RBC % Diff Path Review Reviewed Platelet Estimate Plt Morphology Comment RBC Morphology Absolute Retic Sodium Potassium Chloride Carbon Dioxide Anion Gap BUN Creatinine Estim Creat Clear Calc Est GFR (MDRD) Af Amer Est GFR (MDRD) Non-Af BUN/Creatinine Ratio Glucose Calcium Total Bilirubin AST ALT Alkaline Phosphatase Total Protein Albumin Globulin Albumin/Globulin Ratio Hep Bs Antigen Negative Hep Bs Antibody Non Reactive Hep B Core Total Ab Negative 06/20/18 06/20/18 04:35 04:35 WBC 13.7 H RBC 4.80 Hgb 13.8 Hct 40.4 MCV 84.2 MCH 28.8 MCHC 34.2 RDW 14.7 H RDW Differential 44.3 H Plt Count 248 MPV 11.2 Neut % (Auto) Not Reportable Absolute Neuts (auto) 12.6 H Absolute Lymphs (auto) 0.96 Total Counted 100 Neutrophils % (Manual) 87 H Band Neutrophils % 1 Lymphocytes % (Manual) 7 L Monocytes % (Manual) 5 Nucleated RBC % 0.5 Diff Path Review May foll Platelet Estimate ADEQUATE Plt Morphology Comment LARGE RBC Morphology NORM C+C Absolute Retic 0.07 Sodium 138 Potassium 4.9 Chloride 100 Carbon Dioxide 22.0 Anion Gap 16 H BUN 110 H* Creatinine 5.90 H Estim Creat Clear Calc 9.19 Est GFR (MDRD) Af Amer 10 L Est GFR (MDRD) Non-Af 8 L BUN/Creatinine Ratio 18.6 Glucose 138 H Calcium 7.0 L Total Bilirubin 3.00 H AST 497 H ALT 890 H Alkaline Phosphatase 119 H Total Protein 6.2 L Albumin 2.2 L Globulin 4.0 Albumin/Globulin Ratio 0.6 L Hep Bs Antigen Hep Bs Antibody Hep B Core Total Ab POC Glucose 06/20/18 06/19/18 06/19/18 06:17 23:42 18:00 POC Glucose 129 H 141 H 134 H 06/19/18 12:56 POC Glucose 130 H Medical Necessity - Tobacco Use Smoking Status: Current every day smoker - Patient notes that she is currently smoking 2-3 cigarettes/day. Tobacco Use: Cigarettes Assessment/Plan All Active Problems Severe sepsis (Acute) Acute respiratory failure with hypoxia (Acute) Pneumonia (Acute) Atrial fibrillation with RVR (Acute) LYNNETTE (acute kidney injury) (Acute) Problem with dialysis access (Acute) This is a 58 years old female patient presented to the emergency room because of shortness of breath, cough and fever, found to have multilobar community-acquired pneumonia complicated by septic shock and her hospital course complicated by cardiac arrest status post CPR, A. fib with RVR, acute renal failure requiring hemodialysis as well as elevated LFTs secondary to shock liver. #1 septic shock: Blood pressure and heart rate improved, no IV vasopressors needed. She is on IV Levaquin and Tamiflu as well as IV steroids. Sputum culture revealed Streptococcus pneumoniae. Blood cultures showed no growth in 48 hours. Urine culture showed no growth. Respiratory panel for viruses came back positive for influenza A. Plan to wean off IV steroids, continue other treatments. #2 acute streptococcal multilobar community-acquired pneumonia: Remained on IV Levaquin and Tamiflu as well as IV steroids. Sputum culture revealed Streptococcus pneumoniae. Blood culture showed no growth in 48 hours. Urine cultures negative.. Plan to continue same treatment #3 status post cardiac arrest x2: Attributed to new onset A. fib with RVR that is likely precipitated by pneumonia. Her troponin are minimally elevated. EKG revealed no acute ischemic changes. Echocardiogram revealed ejection fraction 40%, mild to moderate global hypokinesis of the left ventricle.. Cardiology on the case. #4 acute hypoxic and hypercapnic respiratory failure: Secondary to pneumonia. She is on mechanical ventilation, started on hemodialysis yesterday. She is on IV antibiotics, IV steroids and bronchodilators as above. #5 acute renal failure: Patient does have multiorgan failure secondary to septic shock. Right internal jugular tunneled dialysis catheter placed yesterday and she received 1 dialysis session, 2 L removed. Kidney function minimally improved. Nephrology on the case, patient probably will need hemodialysis today as well. #6 new onset A. fib with RVR/indeterminate troponin: Remained in sinus rhythm now, blood pressure is maintained without vasopressors. Troponin is indeterminate, no acute ischemic changes on EKG. Plan as above. #7 shock liver: Secondary to septic shock. Liver transaminases as well as total bilirubin are highly elevated, continued to trend down, alk phos is normal. Plan as above. #8 DVT prophylaxis: SCDs. This note was generated with the grafter dictation software. It may contain incorrect words, spelling, and punctuation that were not noted in checking the note before signing. Code Visit Inpatient E&M: 03182 [facility] L3
--- NOTE | 2018-06-20 08:47 | PCM.PN.REN ---
Patient Problems: Active and Suspected Problems Severe sepsis (Acute) Acute respiratory failure with hypoxia (Acute) Pneumonia (Acute) Atrial fibrillation with RVR (Acute) LYNNETTE (acute kidney injury) (Acute) Problem with dialysis access (Acute) Subjective: Pt is in ICU. Awake and follow commands. Remains intubated with FIO2 45% Remains anuric - Physical Exam General: No apparent distress, - - Intubated HEENT: Atraumatic Oral: Moist Mucosa Lungs: Clear to auscultation, No rhonchi, No wheeze, - - On Vent support Abdomen: Soft, Non Tender, Non-Distended Extremities: No clubbing, No cyanosis, No edema Skin: No rashes Musculoskeletal: No Tenderness to Palpation of Joints or Extremities Neurological: - - Intubated. mildly sedated Vital Signs Temp Pulse Resp BP Pulse Ox 99.3 F H 91 29 H 136/97 H 92 06/20/18 08:00 06/20/18 08:00 06/20/18 08:00 06/20/18 08:00 06/20/18 08:00 Oxygen Flow Rate (L/min) 85 Oxygen Delivery Method Mechanical Ventilator Weight: 116.2 kg Body Mass Index (BMI) 40.4 Intake and Output for Last 24 Hours 06/18/18 06/19/18 06/20/18 23:59 23:59 23:59 Intake Total 2481.6 / 2481.6 976 / 976 955 / 955 Output Total 3050 / 3050 1999 / 1999 805 / 805 Balance -568.4 / -568.4 -1024 / -1024 150 / 150 Microbiology Past 72 Hours 06/16/18 05:20 Gram Stain - Final Transtracheal Aspirate Respiratory Culture - Final Streptococcus pneumoniae 06/15/18 21:40 Blood Culture - Preliminary Blood Culture (Wb) - Anticubital Right No growth in 48 hours. 06/15/18 21:40 Blood Culture - Preliminary Blood Culture (Wb) - Anticubital Left No growth in 48 hours. 06/16/18 11:15 Urine Culture - Final Urine Catheter - Robertson Culture exhibits no growth. 06/16/18 08:10 Gram Stain - Final Sputum, Tracheal Aspirate Respiratory Culture - Final Laboratory Tests Past 24 Hrs 06/17/18 06/17/18 06/19/18 23:30 23:30 04:15 WBC RBC Hgb Hct MCV MCH MCHC RDW RDW Differential Plt Count MPV Neut % (Auto) Absolute Neuts (auto) Absolute Lymphs (auto) Total Counted Neutrophils % (Manual) Band Neutrophils % Lymphocytes % (Manual) Monocytes % (Manual) Nucleated RBC % Diff Path Review Reviewed Platelet Estimate Plt Morphology Comment RBC Morphology Absolute Retic Sodium Potassium Chloride Carbon Dioxide Anion Gap BUN Creatinine Estim Creat Clear Calc Est GFR (MDRD) Af Amer Est GFR (MDRD) Non-Af BUN/Creatinine Ratio Glucose Calcium Total Bilirubin AST ALT Alkaline Phosphatase Total Protein Albumin Globulin Albumin/Globulin Ratio Hep Bs Antigen Negative Hep Bs Antibody Non Reactive Hep B Core Total Ab Negative 06/20/18 06/20/18 04:35 04:35 WBC 13.7 H RBC 4.80 Hgb 13.8 Hct 40.4 MCV 84.2 MCH 28.8 MCHC 34.2 RDW 14.7 H RDW Differential 44.3 H Plt Count 248 MPV 11.2 Neut % (Auto) Not Reportable Absolute Neuts (auto) 12.6 H Absolute Lymphs (auto) 0.96 Total Counted 100 Neutrophils % (Manual) 87 H Band Neutrophils % 1 Lymphocytes % (Manual) 7 L Monocytes % (Manual) 5 Nucleated RBC % 0.5 Diff Path Review May foll Platelet Estimate ADEQUATE Plt Morphology Comment LARGE RBC Morphology NORM C+C Absolute Retic 0.07 Sodium 138 Potassium 4.9 Chloride 100 Carbon Dioxide 22.0 Anion Gap 16 H BUN 110 H* Creatinine 5.90 H Estim Creat Clear Calc 9.19 Est GFR (MDRD) Af Amer 10 L Est GFR (MDRD) Non-Af 8 L BUN/Creatinine Ratio 18.6 Glucose 138 H Calcium 7.0 L Total Bilirubin 3.00 H AST 497 H ALT 890 H Alkaline Phosphatase 119 H Total Protein 6.2 L Albumin 2.2 L Globulin 4.0 Albumin/Globulin Ratio 0.6 L Hep Bs Antigen Hep Bs Antibody Hep B Core Total Ab POC Glucose 06/20/18 06/19/18 06/19/18 06:17 23:42 18:00 POC Glucose 129 H 141 H 134 H 06/19/18 12:56 POC Glucose 130 H Medical Necessity - Tobacco Use Smoking Status: Current every day smoker - Patient notes that she is currently smoking 2-3 cigarettes/day. Tobacco Use: Cigarettes Assessment/Plan All Active Problems Severe sepsis (Acute) Acute respiratory failure with hypoxia (Acute) Pneumonia (Acute) Atrial fibrillation with RVR (Acute) LYNNETTE (acute kidney injury) (Acute) Problem with dialysis access (Acute) 1-Acute kidney injury. Most probably related to ischemic ATN Patient is currently dependent on dialysis for volume and metabolic support. Remains anuric. No recovery of kidney function. Dialysis started on June 17. Pt had the 2nd session of HD yesterday via right IJ tunneled cath Will arrange for the 3rd HD session today for 3 hours, BQ 350 DQ 600 UF 3L Please keep mean arterial pressure more than 65. Avoid nephrotoxic. I will continue to monitor for kidney function recovery 2-Acute respiratory failure from community-acquired pneumonia/Influenza A infection. currently on vent support as per the photography intern. 3-bilateral pneumonia/Influenza A infection. On antibiotics as per the ICU team. Levaquin is appropriately dosed for HD patient I stopped tamiflu on 06/19 4-A. fib with RVR. Patient needed Cardizem drip now back to sinus rhythm. Renal team will continue to follow. Please call with any question or concern Aaliyah Muñoz MD [phone]
--- NOTE | 2018-06-20 10:06 | CASEMGMT ---
SW did receive a message back from Rfid Manager Jesus Iqbal. He states is out of town but SW can leave name of pt on the office voice mail and when he returns later today he will send over the POA forms. SW called back and left a message with the pt's name requesting he fax the forms to the hospital. TATUM Wei, STAVE LOG CUT OFF SAW OPERATOR
[2018-06-20] MEDS: Chlorhexidine 15 ML PO (10:43)
[2018-06-20 11:31] LABS: Bedside Glucose 104 mg/dL (70-110)
[2018-06-20] MEDS: levoFLOXacin IV 500 MG/100 ML BAG 100 MG IV (13:27)
[2018-06-20] MEDS: Heparin 10,000 UNITS/10 ML Vial IV (13:28)
[2018-06-20 13:41] LABS: Pathologist Review Reviewed
--- NOTE | 2018-06-20 13:58 | CASEMGMT ---
Addendum entered by Sydnie Bautista 06/20/18 14:06: Pt is now extubated. SW spoke w/pt briefly, pt is still sleepy at this time. At this time, pt agreeing that Ezequiel is her POA and is okay with him making decisions. SW will follow up w/pt tomorrow in regard to this. TATUM Wei, ENTRY LEVEL MARKETING ASSISTANT Original Note: SW spoke w/pt's attorney general Jesus Iqbal, there are questions regarding the status of pt's POA forms, and he is not able to forward these forms to this SW at this time. TATUM Wei, ENTRY LEVEL MARKETING ASSISTANT
[2018-06-20] MEDS: fentaNYL 100 MCG/2 ML Ampul 25 MCG IV ×3 (17:10→22:28)
[2018-06-20] MEDS: 0.9% NaCl Peripheral Flush Adult/Peds IV ×2 (20:26→22:28)
[2018-06-21] VITALS (48 sets, daily range): BP systolic 99–159; BP diastolic 59–102; PULSE 83–180; RESP 14–32; TEMP 35.8–36.3; O2SAT 85–98
[2018-06-21] MEDS: 0.9% NaCl Peripheral Flush Adult/Peds IV ×2 (00:30→16:39)
[2018-06-21] MEDS: fentaNYL 100 MCG/2 ML Ampul 25 MCG IV ×6 (00:30→22:18)
--- NOTE | 2018-06-21 01:05 | NURSING ---
Patient requested a break form bipap at 0030. Patient placed on 6L NC. Patient instructed that she will be placed back on bipap at 0100. Patient verbalized understanding. Patient put toll transmission worker light and requested to be placed back on bipap at 0100. Tolerating bipap 50% well at this time.
[2018-06-21 04:16] LABS: Bedside Glucose 115 mg/dL (70-110)
[2018-06-21] MEDS: NYSTATIN 500,000 UNIT/5 ML UDC 500000 UNIT PO ×2 (05:00→15:58)
[2018-06-21 05:28] LABS: Hematocrit 39.2 % (37-47); Hemoglobin 13.7 g/dl (12.0-15.0); Mean Corp Hgb Conc 34.9 g/gl (32-36); Mean Corpuscular Hgb 29.6 pg (27.0-32.0); Mean Corpuscular Volume 84.7 fL (81-99); Mean Platelet Vol. 11.2 fl (6.2-12.0); Platelet Count 254 K/mm3 (150-450); RBC Distribution Width CV 14.8 % (11.6-14.6); RBC Distribution Width SD 44.6 fl (35.1-43.9); Red Blood Count 4.63 M/mm3 (4.2-5.4)
[2018-06-21 05:31] LABS: Anion Gap 14 (5-15); BUN 93 mg/dL (7-18); BUN/Creat Ratio 17.4 RATIO (10-20); Calcium,Total 8.1 mg/dL (8.5-10.1); Chloride 100 mmol/L (98-107); Creatinine, Serum 5.34 mg/dL (0.55-1.02); EST Glomerular Filtration Rate 9 mL/min (>60); Est Glom Filt Rate - Afr Amer 11 mL/min (>60); Estimated Creatinine Clearance 10.16 ml/min; Glucose 111 mg/dL (74-106); Potassium 4.9 mmol/L (3.5-5.1); Sodium Level 139 mmol/L (136-145)
[2018-06-21 05:40] LABS: Differential Indicated MANUAL DIFF; POSITIVE COUNT YES; POSITIVE DIFFERENTIAL NO; POSITIVE MORPHOLOGY YES
[2018-06-21] MEDS: Ipratropium/Albuterol Sulfate 3 ML AMPUL.NEB INHALATION (06:45)
--- NOTE | 2018-06-21 07:05 | PCM.PN.INT ---
Subjective: Patient did well overnight. No acute issues were reported. Patient was compliant with BiPAP therapy. Patient denies any chest pain at this time. Patient has very little recollection of hospital course to this point. General: Alert, Oriented x3, Cooperative, No apparent distress, - - Morbidly obese. Good BiPAP synchrony on my evaluation. HEENT: Atraumatic, PERRLA, EOMI, Normocephalic, - Oral: Moist Mucosa, No Gingival or Mucosal Lesions/ Ulcerations Neck: Supple, No JVD, No Nodes, Trachea Midline, - - IJ is clean, dry and intact. Lungs: No rhonchi, No wheeze, No rales, Diminished, - - Symmetric expansion. No dullness to percussion. Cardiovascular: Regular rate, Regular Rhythm, Normal S1, Normal S2, No murmurs, No rub noted, No Gallop Abdomen: Bowel Sounds Present, Soft, Non Tender, Non-Distended, Obese Extremities: No clubbing, No cyanosis, Capillary Refill Less than 3 Seconds, Edema Skin: - - No significant change compared to previous Musculoskeletal: No Tenderness to Palpation of Joints or Extremities, No Muscle Wasting Lymphatic: No Cervical, Supraclavicular, or Inguinal Adenopathy Neurological: Cranial nerves II-XII grossly intact, Neuro grossly intact, Motor Exam 5/5 strength throughout Psych/Mental Status: Normal Affect, Appropriate Vital Signs Temp Pulse Resp BP Pulse Ox 36.2 C L 87 24 H 134/82 H 97 06/21/18 06:00 06/21/18 06:00 06/21/18 06:00 06/21/18 06:00 06/21/18 06:00 Oxygen Flow Rate (L/min) 6 Oxygen Delivery Method Bi-pap Weight: 112.4 kg Body Mass Index (BMI) 40.4 Intake and Output for Last 24 Hours 06/19/18 06/20/18 06/21/18 23:59 23:59 23:59 Intake Total 976 / 976 1568 / 1568 0 / 0 Output Total 1999 2335 / 2335 0 / 0 Balance -1024 / -1024 -767 / -767 0 / 0 Labs (Last 48 Hours) 06/17/18 06/17/18 06/19/18 23:30 23:30 04:15 WBC RBC Hgb Hct MCV MCH MCHC RDW RDW Differential Plt Count MPV Neut % (Auto) Absolute Neuts (auto) 13.1 H Absolute Lymphs (auto) 0.42 L Total Counted 100 Neutrophils % (Manual) 89 H Band Neutrophils % 5 Lymphocytes % (Manual) 3 L Monocytes % (Manual) 3 Nucleated RBC % 0.5 Diff Path Review Reviewed Platelet Estimate ADEQUATE Plt Morphology Comment RBC Morphology NORM C+C Absolute Retic 0.07 Sodium Potassium Chloride Carbon Dioxide Anion Gap BUN Creatinine Estim Creat Clear Calc Est GFR (MDRD) Af Amer Est GFR (MDRD) Non-Af BUN/Creatinine Ratio Glucose Calcium Total Bilirubin AST ALT Alkaline Phosphatase Total Protein Albumin Globulin Albumin/Globulin Ratio Hep Bs Antigen Negative Hep Bs Antibody Non Reactive Hep B Core Total Ab Negative POC Glucose 06/19/18 06/19/18 06/19/18 12:56 18:00 23:42 WBC RBC Hgb Hct MCV MCH MCHC RDW RDW Differential Plt Count MPV Neut % (Auto) Absolute Neuts (auto) Absolute Lymphs (auto) Total Counted Neutrophils % (Manual) Band Neutrophils % Lymphocytes % (Manual) Monocytes % (Manual) Nucleated RBC % Diff Path Review Platelet Estimate Plt Morphology Comment RBC Morphology Absolute Retic Sodium Potassium Chloride Carbon Dioxide Anion Gap BUN Creatinine Estim Creat Clear Calc Est GFR (MDRD) Af Amer Est GFR (MDRD) Non-Af BUN/Creatinine Ratio Glucose Calcium Total Bilirubin AST ALT Alkaline Phosphatase Total Protein Albumin Globulin Albumin/Globulin Ratio Hep Bs Antigen Hep Bs Antibody Hep B Core Total Ab POC Glucose 130 H 134 H 141 H 06/20/18 06/20/18 06/20/18 04:35 04:35 06:17 WBC 13.7 H RBC 4.80 Hgb 13.8 Hct 40.4 MCV 84.2 MCH 28.8 MCHC 34.2 RDW 14.7 H RDW Differential 44.3 H Plt Count 248 MPV 11.2 Neut % (Auto) Not Reportable Absolute Neuts (auto) 12.6 H Absolute Lymphs (auto) 0.96 Total Counted 100 Neutrophils % (Manual) 87 H Band Neutrophils % 1 Lymphocytes % (Manual) 7 L Monocytes % (Manual) 5 Nucleated RBC % 0.5 Diff Path Review Reviewed Platelet Estimate ADEQUATE Plt Morphology Comment LARGE RBC Morphology NORM C+C Absolute Retic 0.07 Sodium 138 Potassium 4.9 Chloride 100 Carbon Dioxide 22.0 Anion Gap 16 H BUN 110 H* Creatinine 5.90 H Estim Creat Clear Calc 9.19 Est GFR (MDRD) Af Amer 10 L Est GFR (MDRD) Non-Af 8 L BUN/Creatinine Ratio 18.6 Glucose 138 H Calcium 7.0 L Total Bilirubin 3.00 H AST 497 H ALT 890 H Alkaline Phosphatase 119 H Total Protein 6.2 L Albumin 2.2 L Globulin 4.0 Albumin/Globulin Ratio 0.6 L Hep Bs Antigen Hep Bs Antibody Hep B Core Total Ab POC Glucose 129 H 06/20/18 06/21/18 06/21/18 11:25 04:10 05:00 WBC 15.0 H RBC 4.63 Hgb 13.7 Hct 39.2 MCV 84.7 MCH 29.6 MCHC 34.9 RDW 14.8 H RDW Differential 44.6 H Plt Count 254 MPV 11.2 Neut % (Auto) Not Reportable Absolute Neuts (auto) Not Reportable Absolute Lymphs (auto) Total Counted Pending Neutrophils % (Manual) Band Neutrophils % Lymphocytes % (Manual) Monocytes % (Manual) Nucleated RBC % Diff Path Review Platelet Estimate Plt Morphology Comment RBC Morphology Absolute Retic Sodium Potassium Chloride Carbon Dioxide Anion Gap BUN Creatinine Estim Creat Clear Calc Est GFR (MDRD) Af Amer Est GFR (MDRD) Non-Af BUN/Creatinine Ratio Glucose Calcium Total Bilirubin AST ALT Alkaline Phosphatase Total Protein Albumin Globulin Albumin/Globulin Ratio Hep Bs Antigen Hep Bs Antibody Hep B Core Total Ab POC Glucose 104 115 H 06/21/18 05:00 WBC RBC Hgb Hct MCV MCH MCHC RDW RDW Differential Plt Count MPV Neut % (Auto) Absolute Neuts (auto) Absolute Lymphs (auto) Total Counted Neutrophils % (Manual) Band Neutrophils % Lymphocytes % (Manual) Monocytes % (Manual) Nucleated RBC % Diff Path Review Platelet Estimate Plt Morphology Comment RBC Morphology Absolute Retic Sodium 139 Potassium 4.9 Chloride 100 Carbon Dioxide 25.0 Anion Gap 14 BUN 93 H Creatinine 5.34 H Estim Creat Clear Calc 10.16 Est GFR (MDRD) Af Amer 11 L Est GFR (MDRD) Non-Af 9 L BUN/Creatinine Ratio 17.4 Glucose 111 H Calcium 8.1 L Total Bilirubin AST ALT Alkaline Phosphatase Total Protein Albumin Globulin Albumin/Globulin Ratio Hep Bs Antigen Hep Bs Antibody Hep B Core Total Ab POC Glucose Microbiology 06/16/18 05:20 Transtracheal Aspirate Gram Stain - Final 06/16/18 05:20 Transtracheal Aspirate Respiratory Culture - Final Streptococcus pneumoniae Medical Necessity - Tobacco Use Smoking Status: Current every day smoker Tobacco Use: Cigarettes Assessment/Plan All Active Problems Severe sepsis (Acute) Acute respiratory failure with hypoxia (Acute) Pneumonia (Acute) Atrial fibrillation with RVR (Acute) LYNNETTE (acute kidney injury) (Acute) Problem with dialysis access (Acute) RECOMMENDATIONS: 1. Continue aggressive bowel regimen 2. BiPAP breaks as tolerated 3. Likely transition to prednisone therapy in the next 24-48 hours 4. Anticipate hemodialysis, volume removal as tolerated 5. Continue antibiotics. 6. Continue bronchodilators IMPRESSIONS: 1. Septic shock with multiorgan system dysfunction secondary to severe community-acquired pneumonia RESOLVED> patient influenza A positive. Patient was originally requiring 3 separate pressors to maintain adequate blood pressure. This may have been complicated by underlying rate control for A. fib. Patient currently off of all pressor therapy. We will continue to monitor. Patient is growing pneumococcus on sputum culture. Patient is responding well to Levaquin therapy. Anticipate 7 days of therapy. 2. Acute hypoxemic and hypercarbic respiratory failure As noted above, clinical concern for severe community-acquired pneumonia. In addition, the patient's brother does have a history of unprovoked venous thromboembolic disease, raising the suspicion for PE as a potential contribution to the patient's decompensation. Patient successfully extubated yesterday afternoon. Off of Precedex therapy. Wean oxygen as tolerated. BiPAP should be used with any sleep. Okay to take BiPAP breaks during the day. 3. New onset atrial fibrillation with rapid ventricular response/troponin elevation/cardiopulmonary arrest Although the patient presented to the hospital with new onset atrial fibrillation, her cardiac arrest was most likely precipitated by hypoxemia. She has been stabilized at this point. The patient converted to normal sinus rhythm overnight following administration of amiodarone, which has been discontinued at this time. We will continue current supportive measures as noted above. Echocardiogram is showing an EF of 40%. Troponins are relatively unimpressive given patient's clinical course. Cardiology is following. 4. Acute kidney injury/shock liver Shock liver has essentially resolved. However, patient's creatinine is significantly elevated, along with BUN. Patient continues to have marginal urine output. Defer to nephrology on timing of hemodialysis. Unclear if patient will recover renal function. Anticipate hemodialysis today or tomorrow. 5. Metabolic encephalopathy Likely secondary to increased metabolic demands in the setting of #1 coupled with hypercarbia and uremia. Despite having gone into cardiac arrest on 2 separate occasions during this hospitalization, the patient's mentation appears to be intact. Continue current supportive measures as noted above. 6. Unknown medical history/morbid obesity/tobacco dependency Complicates care, management, recovery and prognosis. Nicotine replacement therapy can be considered once the patient is deemed to be stabilized clinically. Okay to initiate tube feeds. Addendum 10:47 AM: Called to the patient's bedside secondary to the development of A. fib with RVR. Patient reportedly had had a bedside swallow evaluation during a BiPAP break and developed A. fib with RVR. Patient did have a slight decrease in blood pressure and is reporting palpitations. No syncope has been noted. Patient was given 6 mg of adenosine to confirm A. fib. No hemodynamic instability, so patient was not cardioverted. Patient has had similar complications early in her hospitalization. Cardiology will be contacted. Code Visit Inpatient E&M: [id number] [facility] Hosp L3
[2018-06-21 07:25] LABS: Anisocytosis 1+; Hypochromasia 1+; Lymphocyte 3 % (19-41); Metamyelocyte 1 % (0-1); Microcytosis 1+; Monocyte 3 % (0-10); Neutrophil-Band 2 % (0-5); Neutrophil-Segmented 91 % (47-70); Polychromasia 1+; Total Cells Counted 100 (MANUAL DIFF)
[2018-06-21 07:26] LABS: Platelet Estimate ADEQUATE (ADEQ); Platelet Morphology LARGE
[2018-06-21 07:27] LABS: Absolute Lymphocyte Count 0.45 X10^3/ul (0.83-4.51)
--- NOTE | 2018-06-21 08:51 | PN_ITS ---
Patient Problems: Active and Suspected Problems Severe sepsis (Acute) Acute respiratory failure with hypoxia (Acute) Pneumonia (Acute) Atrial fibrillation with RVR (Acute) LYNNETTE (acute kidney injury) (Acute) Problem with dialysis access (Acute) Subjective: Chief complaint: Follow-up after admission for septic shock due to community acquired pneumonia, acute hypoxic and hypercapnic respiratory failure, acute renal failure, new onset A. fib with RVR, status post cardiac arrest and shock liver. Patient seen and examined. No acute events overnight. She was extubated yesterday and last night, she was on BiPAP. This morning, her pulse ox was in the 80s on nasal cannula, started back on BiPAP. Patient herself denies any chest pain, shortness of breath improved. Denied abdominal pain, nausea or vomiting. She is afebrile, heart rate stable, blood pressure stable, on BiPAP. - Physical Exam General: Alert, Cooperative, - - Moderately short of breath. HEENT: Atraumatic, PERRLA, EOMI, Normocephalic Oral: Moist Mucosa, No Gingival or Mucosal Lesions/ Ulcerations Neck: Supple, No JVD, Negative Carotid Bruits, Trachea Midline, Thyroid Normal Size and Texture Lungs: No rhonchi, No rales, Diminished, Rhonchi, Short of Breath Cardiovascular: Regular rate, Regular Rhythm, Normal S1, Normal S2, PMI Normal Abdomen: Bowel Sounds Present, Soft, Non Tender, Non-Distended, No Hepato- splenomegaly, Obese Extremities: No clubbing, No cyanosis, Edema - Trace edema. Skin: No rashes, No breakdown Lymphatic: No Cervical, Supraclavicular, or Inguinal Adenopathy Neurological: Cranial nerves II-XII grossly intact, Motor Exam 5/5 strength throughout Psych/Mental Status: Normal Affect, Appropriate Vital Signs Temp Pulse Resp BP Pulse Ox 96.5 F L 96 24 H 159/97 H 96 06/21/18 08:00 06/21/18 08:00 06/21/18 08:00 06/21/18 08:00 06/21/18 08:00 Oxygen Flow Rate (L/min) 6 Oxygen Delivery Method Bi-pap Weight: 247 lb 12.793 oz Body Mass Index (BMI) 40.4 Intake and Output for Last 24 Hours 06/19/18 06/20/18 06/21/18 23:59 23:59 23:59 Intake Total 976 / 976 1568 / 1568 0 / 0 Output Total 1999 2335 / 2335 0 / 0 Balance -1024 / -1024 -767 / -767 0 / 0 Microbiology Past 72 Hours 06/15/18 21:40 Blood Culture - Final Blood Culture (Wb) - Anticubital Left No growth in 5 days. 06/15/18 21:40 Blood Culture - Final Blood Culture (Wb) - Anticubital Right No growth in 5 days. 06/16/18 05:20 Gram Stain - Final Transtracheal Aspirate Respiratory Culture - Final Streptococcus pneumoniae 06/16/18 11:15 Urine Culture - Final Urine Catheter - Robertson Culture exhibits no growth. 06/16/18 08:10 Gram Stain - Final Sputum, Tracheal Aspirate Respiratory Culture - Final Laboratory Tests Past 24 Hrs 06/20/18 06/21/18 06/21/18 04:35 05:00 05:00 WBC 15.0 H RBC 4.63 Hgb 13.7 Hct 39.2 MCV 84.7 MCH 29.6 MCHC 34.9 RDW 14.8 H RDW Differential 44.6 H Plt Count 254 MPV 11.2 Neut % (Auto) Not Reportable Absolute Neuts (auto) 14.0 H Absolute Lymphs (auto) 0.45 L Total Counted 100 Neutrophils % (Manual) 91 H Band Neutrophils % 2 Lymphocytes % (Manual) 3 L Monocytes % (Manual) 3 Metamyelocytes % 1 Diff Path Review Reviewed May foll Platelet Estimate ADEQUATE Plt Morphology Comment LARGE Polychromasia 1+ Hypochromasia 1+ Anisocytosis 1+ Microcytosis 1+ Sodium 139 Potassium 4.9 Chloride 100 Carbon Dioxide 25.0 Anion Gap 14 BUN 93 H Creatinine 5.34 H Estim Creat Clear Calc 10.16 Est GFR (MDRD) Af Amer 11 L Est GFR (MDRD) Non-Af 9 L BUN/Creatinine Ratio 17.4 Glucose 111 H Calcium 8.1 L POC Glucose 06/21/18 06/20/18 04:10 11:25 POC Glucose 115 H 104 Medical Necessity - Tobacco Use Smoking Status: Current every day smoker Tobacco Use: Cigarettes Assessment/Plan All Active Problems Severe sepsis (Acute) Acute respiratory failure with hypoxia (Acute) Pneumonia (Acute) Atrial fibrillation with RVR (Acute) LYNNETTE (acute kidney injury) (Acute) Problem with dialysis access (Acute) This is a 58 years old female patient presented to the emergency room because of shortness of breath, cough and fever, found to have multilobar community- acquired pneumonia complicated by septic shock and her hospital course complicated by cardiac arrest status post CPR, A. fib with RVR, acute renal failure requiring hemodialysis as well as elevated LFTs secondary to shock liver. #1 septic shock: Hemodynamically stable, afebrile. She is on IV Levaquin and IV steroids. Sputum culture revealed Streptococcus pneumoniae. Blood cultures showed no growth in 48 hours. Urine culture showed no growth. Respiratory panel for viruses came back positive for influenza A. Plan to continue same treatment. #2 acute streptococcal multilobar community-acquired pneumonia: Remained on IV Levaquin. Sputum culture revealed Streptococcus pneumoniae. Blood culture showed no growth in 48 hours. Urine cultures negative.. Plan to continue same treatment #3 status post cardiac arrest x2: Attributed to new onset A. fib with RVR that is likely precipitated by pneumonia. Her troponin are minimally elevated. EKG revealed no acute ischemic changes. Echocardiogram revealed ejection fraction 40%, mild to moderate global hypokinesis of the left ventricle. Stable at this point. #4 acute hypoxic and hypercapnic respiratory failure: Secondary to pneumonia. Status post especially yesterday, has been requiring BiPAP intermittently, tolerating. Plan to continue IV steroids and bronchodilators as well as antibiotics. #5 acute renal failure: Patient does have multiorgan failure secondary to septic shock. Right internal jugular tunneled dialysis catheter placed yesterday and she received 1 dialysis session, 2 L removed. Kidney function continued to improve very slowly, she has very poor urine output. Probably, she would need dialysis again today. Nephrology on the case. #6 new onset A. fib with RVR/indeterminate troponin: Remained in sinus rhythm now, blood pressure is maintained without vasopressors. Troponin is indeterminate, no acute ischemic changes on EKG. Plan as above. #7 shock liver: Secondary to septic shock. Liver transaminases as well as total bilirubin continued to improve. Alk phos is normal. Plan as above. #8 DVT prophylaxis: SCDs. This note was generated with [employer] software. It may contain incorrect words, spelling, and punctuation that were not noted in checking the note before signing. Code Visit Inpatient E&M: 76418 [facility] Hosp L2
[2018-06-21] MEDS: Pantoprazole Sodium 40 MG Tablet PO (10:15)
--- NOTE | 2018-06-21 10:17 | CASEMGMT ---
SW participated in ICU rounds, Isela is present during rounds. SW spoke w/pt after rounds. Though pt has on bipap mask, she is more alert and awake this morning. SW asked pt again about POA, explained that SW spoke w/her title attorney Jesus Iqbal, SW asked if Jesus Iqbal is indeed her title attorney, pt nodded yes. SW mentioned that Jesus had said she may want to change POA. SW asked pt again about POA. Pt again nodded in agreement that she wants Ezequiel as POA, and Isela as her alternate. SW will continue to follow, explained that SW and CM will be following for discharge needs. Pt nodded in understanding. TATUM Wei, RESIDENCE SUPERVISOR
[2018-06-21] MEDS: Adenosine 6 MG/2 ML Syringe IV (10:32)
--- NOTE | 2018-06-21 10:54 | EKG12_ITS ---
Test Reason : TACHY Blood Pressure : / mmHG Vent. Rate : 182 BPM Atrial Rate : 202 BPM P-R Int : 000 ms QRS Dur : 084 ms QT Int : 236 ms P-R-T Axes : 000 025 174 degrees QTc Int : 410 ms Atrial fibrillation Nonspecific T wave abnormality Abnormal ECG Confirmed by PETER CHRISTIAN, LUIS ([id number]), milling machine set up operator ENEDELIA SCHREIBER ([id number]) on 06/26/2018 10:39:06 AM Referred By: [email or web address] Confirmed By:LUIS GREEN MD
[2018-06-21] MEDS: CHLORHEXIDINE GLUC 2% CLOTH 1 EACH TOWELETTE TOPICAL (11:29)
--- NOTE | 2018-06-21 12:36 | CASEMGMT ---
SW spoke w/pt again this afternoon in regard to discharge plan. SW introduced the idea to pt of needing to go somewhere after her hospitalization for rehab, depending on how she is moving, her breathing, and if she needs dialysis. Pt nodded in understanding. She indicated that she has not ever had to go somewhere for rehab. SW explained we will see how things go on the weekend and will follow up w/her on Sunday in regard to this. TATUM Wei, AUDIO EXPERIENCE EXPERT
[2018-06-21 13:24] LABS: Pathologist Review Reviewed
[2018-06-21] MEDS: Heparin Injection (Vial) 5,000 UNIT/ML VIAL 5000 UNIT SC ×2 (14:02→21:21)
--- NOTE | 2018-06-21 16:26 | CASEMGMT ---
DEENA CM Note: chart reviewed in regards to dc planning, SW notes reviewed. DC PLAN undetermined at this time. If continues to need dialysis, Bipap and assist of 2-3 with activities, LTAC may be option. Will continue to follow on Sunday and review pt's progress and activity level. Mychal ARROYON RN ACM
[2018-06-21] MEDS: dilTIAZem 25 MG/5 ML Vial 20 MG IV BOLUS (16:39)
--- NOTE | 2018-06-21 17:22 | PN.RENAL_ITS ---
Patient Problems: Active and Suspected Problems Severe sepsis (Acute) Acute respiratory failure with hypoxia (Acute) Pneumonia (Acute) Atrial fibrillation with RVR (Acute) LYNNETTE (acute kidney injury) (Acute) Problem with dialysis access (Acute) Subjective: Patient was extubated yesterday. Currently on BiPAP. Patient went to [facility] with RVR this morning and was started on Cardizem .patient denies any nausea vomiting. Remains anuric - Physical Exam General: Alert, Oriented x3 HEENT: Atraumatic Oral: Moist Mucosa Neck: Supple, No JVD Lungs: Clear to auscultation, Normal air movement, No rhonchi, No wheeze Cardiovascular: Normal S1, Normal S2, Irregular Rate, Tachycardic Abdomen: Bowel Sounds Present, Soft, Non Tender Extremities: No clubbing, No cyanosis, No edema Musculoskeletal: No Tenderness to Palpation of Joints or Extremities Lymphatic: No Cervical, Supraclavicular, or Inguinal Adenopathy Neurological: Cranial nerves II-XII grossly intact, Neuro grossly intact Psych/Mental Status: Normal Affect Vital Signs Temp Pulse Resp BP Pulse Ox 96.9 F L 135 H 23 H 108/70 96 06/21/18 16:00 06/21/18 16:48 06/21/18 16:00 06/21/18 16:48 06/21/18 16:00 Oxygen Flow Rate (L/min) 6 Oxygen Delivery Method Bi-pap Weight: 112.4 kg Body Mass Index (BMI) 40.4 Intake and Output for Last 24 Hours 06/19/18 06/20/18 06/21/18 23:59 23:59 23:59 Intake Total 976 / 976 1568 / 1568 140 / 140 Output Total 1999 2335 / 2335 0 / 0 Balance -1024 / -1024 -767 / -767 140 / 140 Microbiology Past 72 Hours 06/15/18 21:40 Blood Culture - Final Blood Culture (Wb) - Anticubital Left No growth in 5 days. 06/15/18 21:40 Blood Culture - Final Blood Culture (Wb) - Anticubital Right No growth in 5 days. 06/16/18 05:20 Gram Stain - Final Transtracheal Aspirate Respiratory Culture - Final Streptococcus pneumoniae Laboratory Tests Past 24 Hrs 06/21/18 06/21/18 05:00 05:00 WBC 15.0 H RBC 4.63 Hgb 13.7 Hct 39.2 MCV 84.7 MCH 29.6 MCHC 34.9 RDW 14.8 H RDW Differential 44.6 H Plt Count 254 MPV 11.2 Neut % (Auto) Not Reportable Absolute Neuts (auto) 14.0 H Absolute Lymphs (auto) 0.45 L Total Counted 100 Neutrophils % (Manual) 91 H Band Neutrophils % 2 Lymphocytes % (Manual) 3 L Monocytes % (Manual) 3 Metamyelocytes % 1 Diff Path Review Reviewed Platelet Estimate ADEQUATE Plt Morphology Comment LARGE Polychromasia 1+ Hypochromasia 1+ Anisocytosis 1+ Microcytosis 1+ Sodium 139 Potassium 4.9 Chloride 100 Carbon Dioxide 25.0 Anion Gap 14 BUN 93 H Creatinine 5.34 H Estim Creat Clear Calc 10.16 Est GFR (MDRD) Af Amer 11 L Est GFR (MDRD) Non-Af 9 L BUN/Creatinine Ratio 17.4 Glucose 111 H Calcium 8.1 L POC Glucose 06/21/18 04:10 POC Glucose 115 H Medical Necessity - Tobacco Use Smoking Status: Current every day smoker Tobacco Use: Cigarettes Assessment/Plan All Active Problems Severe sepsis (Acute) Acute respiratory failure with hypoxia (Acute) Pneumonia (Acute) Atrial fibrillation with RVR (Acute) LYNNETTE (acute kidney injury) (Acute) Problem with dialysis access (Acute) 1-Acute kidney injury. Most probably related to ischemic ATN Patient is currently dependent on dialysis for volume and metabolic support. Remains anuric. No recovery of kidney function. Dialysis started on June 17. Patient had the third hemodialysis session yesterday. No need for hemodialysis session today. Will arrange hemodialysis session for tomorrow unless kidney function recovers Please keep mean arterial pressure more than 65. Avoid nephrotoxic. I will continue to monitor for kidney function recovery 2-Acute respiratory failure from community-acquired pneumonia/Influenza A infection. Patient was extubated on June 20. Currently on BiPAP. I will defer O2 support to the ICU team 3-bilateral pneumonia/Influenza A infection. On antibiotics as per the ICU team. Levaquin is appropriately dosed for HD patient I stopped tamiflu on 06/19 4-A. fib with RVR. Currently on Cardizem drip. Renal team will continue to follow. Please call with any question or concern Aaliyah Muñoz MD [phone]
[2018-06-21] MEDS: Menthol/Lanolin/Calamine/Znox 113 GM Tube 1 APPLIC TOPICAL (21:12)
[2018-06-22] VITALS (37 sets, daily range): BP systolic 107–144; BP diastolic 68–89; PULSE 109–161; RESP 12–28; TEMP 36.1–36.6; O2SAT 85–97
[2018-06-22] MEDS: NYSTATIN 500,000 UNIT/5 ML UDC 500000 UNIT PO ×2 (00:05→05:40)
[2018-06-22] MEDS: fentaNYL 100 MCG/2 ML Ampul 25 MCG IV ×5 (05:29→20:26)
[2018-06-22] MEDS: Menthol/Lanolin/Calamine/Znox 113 GM Tube 1 APPLIC TOPICAL ×2 (05:40→14:35)
[2018-06-22] MEDS: Heparin Injection (Vial) 5,000 UNIT/ML VIAL 5000 UNIT SC ×2 (05:42→14:34)
[2018-06-22] MEDS: CHLORHEXIDINE GLUC 2% CLOTH 1 EACH TOWELETTE TOPICAL (05:42)
[2018-06-22 06:38] LABS: Absolute Lymphocyte Count 0.92 X10^3/ul (0.83-4.51); Absolute Neutrophil Count 16.3 X10^3/uL (2.0-7.7); Basophil# 0.03 X10^3/uL; Basophil% 0.2 % (0-1); Hematocrit 40.2 % (37-47); Hemoglobin 13.4 g/dl (12.0-15.0); Lymphocyte # 0.92 X10^3/ul (4.0); Lymphocyte % 5.1 % (19-41); Mean Corp Hgb Conc 33.3 g/gl (32-36); Mean Corpuscular Hgb 28.7 pg (27.0-32.0); Mean Corpuscular Volume 86.1 fL (81-99); Mean Platelet Vol. 10.8 fl (6.2-12.0); Monocyte# 0.33 X10^3/uL; Monocyte% 1.8 % (0-10); Neutrophil # 16.33 X10^3/uL (2.7-7.7); Neutrophil % 90.4 % (47-70); Platelet Count 248 K/mm3 (150-450); RBC Distribution Width CV 15.1 % (11.6-14.6); RBC Distribution Width SD 46.4 fl (35.1-43.9); Red Blood Count 4.67 M/mm3 (4.2-5.4); White Blood Count 18.1 K/mm3 (4.4-11.0)
[2018-06-22 06:40] LABS: Differential Indicated SCAN CRITERIA MET; POSITIVE COUNT YES; POSITIVE DIFFERENTIAL NO; POSITIVE MORPHOLOGY YES
[2018-06-22 06:49] LABS: Anion Gap 18 (5-15); BUN 132 mg/dL (7-18); BUN/Creat Ratio 18.6 RATIO (10-20); Chloride 100 mmol/L (98-107); Creatinine, Serum 7.08 mg/dL (0.55-1.02); EST Glomerular Filtration Rate 6 mL/min (>60); Est Glom Filt Rate - Afr Amer 8 mL/min (>60); Estimated Creatinine Clearance 7.66 ml/min; Glucose 110 mg/dL (74-106); Potassium 5.3 mmol/L (3.5-5.1); Sodium Level 140 mmol/L (136-145)
[2018-06-22 07:05] LABS: Platelet Estimate ADEQUATE (ADEQ); Red Cell Morphology NORM C+C NORMAL (NORM C&C)
--- NOTE | 2018-06-22 07:45 | PCM.PN.INT ---
Subjective: Patient did okay overnight. Patient has been compliant with BiPAP therapy with sleep. Patient did develop A. fib with RVR yesterday and was given amiodarone and initiated on Cardene. Patient's heart rate has remained in the 120s-150s, but blood pressure has been maintained. General: Alert, Cooperative, - - Conversational dyspnea noted. Morbidly obese. HEENT: Atraumatic, PERRLA, EOMI, Normocephalic, - - Slight scleral injection without icterus Oral: Moist Mucosa, No Gingival or Mucosal Lesions/ Ulcerations, - - Crowded posterior pharynx Neck: Supple, No Nodes, Trachea Midline, JVD, Left Lungs: No rhonchi, No wheeze, No rales, Diminished, - - Symmetric expansion. No dullness to percussion Cardiovascular: Normal S1, Normal S2, No murmurs, Irregular Rate, No rub noted, No Gallop, Tachycardic Abdomen: Bowel Sounds Present, Soft, Non Tender, Non-Distended, Obese Extremities: No clubbing, No cyanosis, Capillary Refill Less than 3 Seconds, Edema Skin: - - No significant change compared to previous Musculoskeletal: No Tenderness to Palpation of Joints or Extremities Lymphatic: No Cervical, Supraclavicular, or Inguinal Adenopathy Neurological: Cranial nerves II-XII grossly intact, Neuro grossly intact, Motor Exam 5/5 strength throughout Psych/Mental Status: Flat Affect, Depressed Vital Signs Temp Pulse Resp BP Pulse Ox 36.3 C L 136 H 23 H 131/73 H 96 06/22/18 06:00 06/22/18 06:00 06/22/18 06:00 06/22/18 06:00 06/22/18 06:00 Oxygen Flow Rate (L/min) 6 Oxygen Delivery Method Bi-pap Weight: 111.3 kg Body Mass Index (BMI) 40.4 Intake and Output for Last 24 Hours 06/20/18 06/21/18 06/22/18 23:59 23:59 23:59 Intake Total 1568 / 1568 182 / 182 110.5 / 110.5 Output Total 2335 / 2335 Balance -767 / -767 167 / 167 93.5 / 93.5 Labs (Last 48 Hours) 06/20/18 06/20/18 06/21/18 04:35 11:25 04:10 WBC RBC Hgb Hct MCV MCH MCHC RDW RDW Differential Plt Count MPV Immature Gran % (Auto) Neut % (Auto) Lymph % (Auto) [place] % (Auto) Eos % (Auto) Baso % (Auto) Absolute Neuts (auto) Absolute Lymphs (auto) Total Counted Neutrophils % (Manual) Band Neutrophils % Lymphocytes % (Manual) Monocytes % (Manual) Metamyelocytes % Diff Path Review Reviewed Platelet Estimate Plt Morphology Comment RBC Morphology Polychromasia Hypochromasia Anisocytosis Microcytosis Sodium Potassium Chloride Carbon Dioxide Anion Gap BUN Creatinine Estim Creat Clear Calc Est GFR (MDRD) Af Amer Est GFR (MDRD) Non-Af BUN/Creatinine Ratio Glucose Calcium POC Glucose 104 115 H 06/21/18 06/21/18 06/22/18 05:00 05:00 05:28 WBC 15.0 H 18.1 H RBC 4.63 4.67 Hgb 13.7 13.4 Hct 39.2 40.2 MCV 84.7 86.1 MCH 29.6 28.7 MCHC 34.9 33.3 RDW 14.8 H 15.1 H RDW Differential 44.6 H 46.4 H Plt Count 254 248 MPV 11.2 10.8 Immature Gran % (Auto) 2.500 H Neut % (Auto) Not Reportable 90.4 H Lymph % (Auto) 5.1 L [place] % (Auto) 1.8 Eos % (Auto) 0.0 Baso % (Auto) 0.2 Absolute Neuts (auto) 14.0 H 16.3 H Absolute Lymphs (auto) 0.45 L 0.92 Total Counted 100 Not Reportable Neutrophils % (Manual) 91 H Band Neutrophils % 2 Lymphocytes % (Manual) 3 L Monocytes % (Manual) 3 Metamyelocytes % 1 Diff Path Review Reviewed May foll Platelet Estimate ADEQUATE ADEQUATE Plt Morphology Comment LARGE RBC Morphology NORM C+C Polychromasia 1+ Hypochromasia 1+ Anisocytosis 1+ Microcytosis 1+ Sodium 139 Potassium 4.9 Chloride 100 Carbon Dioxide 25.0 Anion Gap 14 BUN 93 H Creatinine 5.34 H Estim Creat Clear Calc 10.16 Est GFR (MDRD) Af Amer 11 L Est GFR (MDRD) Non-Af 9 L BUN/Creatinine Ratio 17.4 Glucose 111 H Calcium 8.1 L POC Glucose 06/22/18 05:28 WBC RBC Hgb Hct MCV MCH MCHC RDW RDW Differential Plt Count MPV Immature Gran % (Auto) Neut % (Auto) Lymph % (Auto) [place] % (Auto) Eos % (Auto) Baso % (Auto) Absolute Neuts (auto) Absolute Lymphs (auto) Total Counted Neutrophils % (Manual) Band Neutrophils % Lymphocytes % (Manual) Monocytes % (Manual) Metamyelocytes % Diff Path Review Platelet Estimate Plt Morphology Comment RBC Morphology Polychromasia Hypochromasia Anisocytosis Microcytosis Sodium 140 Potassium 5.3 H Chloride 100 Carbon Dioxide 22.0 Anion Gap 18 H BUN 132 H* Creatinine 7.08 H Estim Creat Clear Calc 7.66 Est GFR (MDRD) Af Amer 8 L Est GFR (MDRD) Non-Af 6 L BUN/Creatinine Ratio 18.6 Glucose 110 H Calcium 8.0 L POC Glucose Microbiology 06/15/18 21:40 Blood Culture (Wb) - Anticubital Left Blood Culture - Final No growth in 5 days. 06/15/18 21:40 Blood Culture (Wb) - Anticubital Right Blood Culture - Final No growth in 5 days. Medical Necessity - Tobacco Use Smoking Status: Current every day smoker Tobacco Use: Cigarettes Assessment/Plan All Active Problems Severe sepsis (Acute) Acute respiratory failure with hypoxia (Acute) Pneumonia (Acute) Atrial fibrillation with RVR (Acute) LYNNETTE (acute kidney injury) (Acute) Problem with dialysis access (Acute) RECOMMENDATIONS: 1. Continue bowel regimen 2. BiPAP breaks as tolerated 3. Transition to prednisone therapy 4. Anticipate hemodialysis, volume removal as tolerated 5. Continue antibiotics to complete a 10-day course. 6. Continue bronchodilators only as needed 7. Await cardiology recommendations, consider anticoagulation IMPRESSIONS: 1. Septic shock with multiorgan system dysfunction secondary to severe community-acquired pneumonia RESOLVED> patient influenza A positive. Patient was originally requiring 3 separate pressors to maintain adequate blood pressure. This may have been complicated by underlying rate control for A. fib. Patient currently off of all pressor therapy. We will continue to monitor. Patient is growing pneumococcus on sputum culture. Patient is responding well to Levaquin therapy. Anticipate 10 days of therapy. 2. Acute hypoxemic and hypercarbic respiratory failure As noted above, clinical concern for severe community-acquired pneumonia. In addition, the patient's brother does have a history of unprovoked venous thromboembolic disease, raising the suspicion for PE as a potential contribution to the patient's decompensation. Patient successfully extubated yesterday afternoon. Off of Precedex therapy. Wean oxygen as tolerated. BiPAP should be used with any sleep. Patient having more difficulties tolerating off of BiPAP given A. fib with RVR. 3. New onset atrial fibrillation with rapid ventricular response/troponin elevation/cardiopulmonary arrest Patient with initial presentation of new onset A. fib, but this recurred yesterday. Rate is not controlled at this time. Cardiology is following. Patient is on a Cardizem drip. Patient was given adenosine yesterday for confirmation. Patient is not on systemic anticoagulation at this time. Would defer to cardiology. Patient does not appear to be hemodynamically unstable to require urgent cardioversion. Will defer to cardiology 4. Acute kidney injury/shock liver Shock liver has essentially resolved. However, patient's creatinine is significantly elevated, along with BUN. Patient continues to have marginal urine output. Defer to nephrology on timing of hemodialysis. Unclear if patient will recover renal function. Anticipate hemodialysis today or tomorrow. 5. Metabolic encephalopathy Patient continues to follow commands, but appears to be somewhat confused with more complex tasks. This may be secondary to uremia. Nephrology is following. 6. Unknown medical history/morbid obesity/tobacco dependency Complicates care, management, recovery and prognosis. Nicotine replacement therapy can be considered once the patient is deemed to be stabilized clinically. Okay to initiate tube feeds. TIME: 34 minutes critical care time spent addressing patient's A. fib with RVR, respiratory failure, acute kidney injury, review of all data and collaboration with care team (6:15 AM to 7:15 AM) Code Visit [id number]: [id number] Critical care first hour
[2018-06-22] MEDS: 0.9% NaCl Peripheral Flush Adult/Peds IV ×5 (08:04→20:32)
--- NOTE | 2018-06-22 09:36 | PCM.PROGNOTE ---
Patient Problems: Active and Suspected Problems Severe sepsis (Acute) Acute respiratory failure with hypoxia (Acute) Pneumonia (Acute) Atrial fibrillation with RVR (Acute) LYNNETTE (acute kidney injury) (Acute) Problem with dialysis access (Acute) Subjective: Chief complaint: Follow-up after admission for septic shock due to community acquired pneumonia, acute hypoxic and hypercapnic respiratory failure, acute renal failure, new onset A. fib with RVR, status post cardiac arrest and shock liver. Patient seen and examined. No acute events overnight. Yesterday afternoon, she developed A. fib with RVR again and she was given IV amiodarone 1 dose and then started on IV Cardizem drip. This morning, she remained in A. fib with RVR, heart rate has been in the 140s. Patient is alert and awake, denies any pain. She is afebrile, blood pressure is maintained, still on BiPAP. - Physical Exam General: Alert, Cooperative, - - Moderately short of breath. HEENT: Atraumatic, PERRLA, EOMI, Normocephalic Oral: Moist Mucosa, No Gingival or Mucosal Lesions/ Ulcerations Neck: Supple, No JVD, Negative Carotid Bruits, Trachea Midline, Thyroid Normal Size and Texture Lungs: No wheeze, No rales, Diminished, Rhonchi, Short of Breath Cardiovascular: Normal S1, Normal S2, No murmurs, PMI Normal, Irregular Rate, Tachycardic Abdomen: Bowel Sounds Present, Soft, Non Tender, Non-Distended, No Hepato-splenomegaly, Obese Extremities: No clubbing, No cyanosis, Edema - Trace edema. Skin: No rashes, No breakdown Lymphatic: No Cervical, Supraclavicular, or Inguinal Adenopathy Neurological: Cranial nerves II-XII grossly intact, Neuro grossly intact Psych/Mental Status: Flat Affect Vital Signs Temp Pulse Resp BP Pulse Ox 97.4 F L 136 H 23 H 131/73 H 96 06/22/18 06:00 06/22/18 06:00 06/22/18 06:00 06/22/18 06:00 06/22/18 06:00 Oxygen Flow Rate (L/min) 6 Oxygen Delivery Method Bi-pap Weight: 245 lb 5.992 oz Body Mass Index (BMI) 40.4 Intake and Output for Last 24 Hours 06/20/18 06/21/18 06/22/18 23:59 23:59 23:59 Intake Total 1568 / 1568 182 / 182 110.5 / 110.5 Output Total 2335 / 2335 Balance -767 / -767 167 / 167 93.5 / 93.5 Microbiology Past 72 Hours 06/15/18 21:40 Blood Culture - Final Blood Culture (Wb) - Anticubital Left No growth in 5 days. 06/15/18 21:40 Blood Culture - Final Blood Culture (Wb) - Anticubital Right No growth in 5 days. 06/16/18 05:20 Gram Stain - Final Transtracheal Aspirate Respiratory Culture - Final Streptococcus pneumoniae Laboratory Tests Past 24 Hrs 06/21/18 06/22/18 06/22/18 05:00 05:28 05:28 WBC 18.1 H RBC 4.67 Hgb 13.4 Hct 40.2 MCV 86.1 MCH 28.7 MCHC 33.3 RDW 15.1 H RDW Differential 46.4 H Plt Count 248 MPV 10.8 Immature Gran % (Auto) 2.500 H Neut % (Auto) 90.4 H Lymph % (Auto) 5.1 L [place] % (Auto) 1.8 Eos % (Auto) 0.0 Baso % (Auto) 0.2 Absolute Neuts (auto) 16.3 H Absolute Lymphs (auto) 0.92 Total Counted Not Reportable Diff Path Review Reviewed May foll Platelet Estimate ADEQUATE RBC Morphology NORM C+C Sodium 140 Potassium 5.3 H Chloride 100 Carbon Dioxide 22.0 Anion Gap 18 H BUN 132 H* Creatinine 7.08 H Estim Creat Clear Calc 7.66 Est GFR (MDRD) Af Amer 8 L Est GFR (MDRD) Non-Af 6 L BUN/Creatinine Ratio 18.6 Glucose 110 H Calcium 8.0 L Medical Necessity - Tobacco Use Smoking Status: Current every day smoker Tobacco Use: Cigarettes Assessment/Plan All Active Problems Severe sepsis (Acute) Acute respiratory failure with hypoxia (Acute) Pneumonia (Acute) Atrial fibrillation with RVR (Acute) LYNNETTE (acute kidney injury) (Acute) Problem with dialysis access (Acute) This is a 58 years old female patient presented to the emergency room because of shortness of breath, cough and fever, found to have multilobar community-acquired pneumonia complicated by septic shock and her hospital course complicated by cardiac arrest status post CPR, A. fib with RVR, acute renal failure requiring hemodialysis as well as elevated LFTs secondary to shock liver. Yesterday afternoon, she went back into A. fib with RVR, received 1 dose of IV amiodarone and now on IV Cardizem drip. #1 septic shock: Blood pressure is maintained, she is in A. fib with RVR, uncontrolled. She has been afebrile. She is on IV Levaquin and IV steroids. Sputum culture revealed Streptococcus pneumoniae. Blood cultures showed no growth in 48 hours. Urine culture showed no growth. Respiratory panel for viruses came back positive for influenza A. Plan to continue same treatment. #2 new onset A. fib with RVR/indeterminate troponin: She went into A. fib with RVR again yesterday, heart rate has been in the 140s. She received 1 dose of IV amiodarone and now on IV Cardizem drip. Rate is still high, in the 140s, blood pressure is maintained. Troponin is indeterminate, no acute ischemic changes on EKG. 2D echocardiogram revealed ejection fraction of 40%, mild to moderate global hypokinesis of the left ventricle. Cardiology on the case, awaiting their recommendation. #3 acute streptococcal multilobar community-acquired pneumonia: Remained on IV Levaquin. Sputum culture revealed Streptococcus pneumoniae. Blood culture showed no growth in 48 hours. Urine cultures negative.. Plan to continue same treatment #4 status post cardiac arrest x2: Attributed to new onset A. fib with RVR that is likely precipitated by pneumonia. Her troponin are minimally elevated. EKG revealed no acute ischemic changes. Echocardiogram reviewed as above. At this time, no evidence of acute CHF. #5 acute hypoxic and hypercapnic respiratory failure: Secondary to pneumonia. Status post extubation, has been requiring BiPAP intermittently, tolerating. Plan to continue IV steroids and bronchodilators as well as antibiotics. #6 acute renal failure/mild hyperkalemia: Today's potassium is 5.3. BUN and creatinine is worsening today. Still having poor urine output. Patient does have multiorgan failure secondary to septic shock. Nephrology on the case, plan for hemodialysis again today. #7 shock liver: Secondary to septic shock. Liver transaminases as well as total bilirubin continued to improve. Alk phos is normal. Plan as above. #8 DVT prophylaxis: SCDs. This note was generated with Dragon dictation software. It may contain incorrect words, spelling, and punctuation that were not noted in checking the note before signing. Code Visit Inpatient E&M: 29375 Subs Hosp L3
--- NOTE | 2018-06-22 10:04 | CM.UR ---
Addendum entered by Chasidy Duran 06/22/18 10:22: Also she has been on cardizem drip however remains in Afib rvr. Plan is start on amiodarone. Ki Duran RN, CCM. Original Note: Participated in interdisciplinary rounds. Patient remains on bipap at this time. New dialysis. Was on bipap during rounds. Discharge plan is LTAC vs SNF. Ki Duran RN, CCM.
[2018-06-22] MEDS: levoFLOXacin IV 500 MG/100 ML BAG 100 MG IV (10:54)
--- NOTE | 2018-06-22 11:19 | PN.CARD_ITS ---
Subjectve: The patient is awake and alert. She has been up in bed with OT/PT. She has no acute symptoms of chest discomfort. She continues to be chronically short of breath requiring BiPAP therapy. She continues in atrial fibrillation with RVR. Objective: Vital Signs Temp Pulse Resp BP Pulse Ox 97.3 F L 144 H 24 H 123/84 H 95 06/22/18 09:00 06/22/18 09:10 06/22/18 09:10 06/22/18 09:00 06/22/18 09:10 Oxygen Flow Rate (L/min) 4 Oxygen Delivery Method Bi-pap Weight: 245 lb 5.992 oz Body Mass Index (BMI) 40.4 Intake and Output for Last 24 Hours 06/20/18 06/21/18 06/22/18 23:59 23:59 23:59 Intake Total 1568 / 1568 182 / 182 110.5 / 110.5 Output Total 2335 / 2335 15 / 17 / Balance -767 / -767 167 / 167 93.5 / 93.5 General: Awake, Alert, Oriented x 3, Obese HEENT: Atraumatic, Normocephalic, PERRL, EOMI, Sclera Non Icteric Oral: Moist Mucosa Neck: Supple, Good ROM, No JVD Lungs: Diminished [place] Bases Cardiovascular: Irregular Rhythm, Normal S1, Normal S2 Abdomen: Bowel Sounds Present, Soft, Non Tender Extremities: Mild RLE Edema, Mild LLE Edema Psych/Mental Status: Appropriate 06/22/18 05:28: WBC 18.1 H, RBC 4.67, Hgb 13.4, Hct 40.2, MCV 86.1, MCH 28.7, MCHC 33.3, RDW 15.1 H, RDW Differential 46.4 H, Plt Count 248, MPV 10.8, Immature Gran % (Auto) 2.500 H, Neut % (Auto) 90.4 H, Lymph % (Auto) 5.1 L, [place] % (Auto) 1.8, Eos % (Auto) 0.0, Baso % (Auto) 0.2, Absolute Neuts (auto) 16.3 H, Total Counted Not Reportable 06/22/18 05:28: Sodium 140, Potassium 5.3 H, Chloride 100, Carbon Dioxide 22.0, Anion Gap 18 H, BUN 132 H*, Creatinine 7.08 H, Est GFR (MDRD) Af Amer 8 L, Est GFR (MDRD) Non-Af 6 L, BUN/Creatinine Ratio 18.6, Glucose 110 H, Calcium 8.0 L Rhythm:Atrial fibrillation with RVR Medical Necessity - Tobacco Use Smoking Status: Current every day smoker Tobacco Use: Cigarettes Assessment/Plan 1. Atrial fibrillation with rapid ventricular response At the present time the patient continues in atrial fibrillation with rapid ventricular response. This was despite initiation of IV diltiazem therapy. At the present time the patient will continue to be monitored. She will continue attempts at her rate control therapy. However she will also continue attempt with rate control therapy/attempt at regaining sinus rhythm with additional agent such as IV amiodarone. She is currently on Subcutaneous heparin therapy. If her atrial fibrillation continues, barring obvious contraindications, she will need to be altered 2 systemic anticoagulation therapy. Also, if her atrial fibrillation continues despite medical management, including care for her underlying pulmonary disease process, she may need to be considered for her future attempt at DC cardioversion. This may need to be proceeded by [facility]. 2. Cardiopulmonary arrest The patient had a report of cardiopulmonary arrest. She has been previously evaluated for this. Based upon the medical records it appears this was thought secondary to her underlying acute pulmonary disease process. She continues in the ICU, continues to be monitored, and is receiving combined medical management. 3. Pulmonary disease The patient continues to undergo pulmonary evaluation care my pulmonology/critical care medicine. She continues to require BiPAP therapy. 4. Acute renal insufficiency The patient's renal function has deteriorated. She now has a temporary dialysis catheter in place. It appears she is scheduled for dialysis therapy this day marring unforeseen circumstances. This note was generated using a voice recognition system and there may be incorrect words, spelling or punctuation that were not noted when reviewing the office note prior to saving.
[2018-06-22 14:56] LABS: Phosphorus 9.7 mg/dL (2.5-4.9)
--- NOTE | 2018-06-22 15:38 | PCM.PN.REN ---
Patient Problems: Active and Suspected Problems Severe sepsis (Acute) Acute respiratory failure with hypoxia (Acute) Pneumonia (Acute) Atrial fibrillation with RVR (Acute) LYNNETTE (acute kidney injury) (Acute) Problem with dialysis access (Acute) Subjective: events noted - Physical Exam HEENT: Normocephalic Neck: Supple, No JVD, Negative Carotid Bruits Lungs: Clear to auscultation, Normal air movement Cardiovascular: Regular rate, No murmurs Abdomen: Bowel Sounds Present, Soft, Non Tender Extremities: No edema, Capillary Refill Less than 3 Seconds Skin: No rashes, No breakdown Musculoskeletal: No Tenderness to Palpation of Joints or Extremities Vital Signs Temp Pulse Resp BP Pulse Ox 97.3 F L 119 H 22 H 116/71 95 06/22/18 15:00 06/22/18 15:18 06/22/18 15:18 06/22/18 15:00 06/22/18 15:18 Oxygen Flow Rate (L/min) 4 Oxygen Delivery Method Bi-pap Weight: 111.3 kg Body Mass Index (BMI) 40.4 Intake and Output for Last 24 Hours 06/20/18 06/21/18 06/22/18 23:59 23:59 23:59 Intake Total 1568 / 1568 182 / 182 341.5 / 341.5 Output Total 2335 / 2335 Balance -767 / -767 167 / 167 322.5 / 322.5 Microbiology Past 72 Hours 06/15/18 21:40 Blood Culture - Final Blood Culture (Wb) - Anticubital Left No growth in 5 days. 06/15/18 21:40 Blood Culture - Final Blood Culture (Wb) - Anticubital Right No growth in 5 days. Laboratory Tests Past 24 Hrs 06/22/18 06/22/18 06/22/18 05:28 05:28 05:30 WBC 18.1 H RBC 4.67 Hgb 13.4 Hct 40.2 MCV 86.1 MCH 28.7 MCHC 33.3 RDW 15.1 H RDW Differential 46.4 H Plt Count 248 MPV 10.8 Immature Gran % (Auto) 2.500 H Neut % (Auto) 90.4 H Lymph % (Auto) 5.1 L [place] % (Auto) 1.8 Eos % (Auto) 0.0 Baso % (Auto) 0.2 Absolute Neuts (auto) 16.3 H Absolute Lymphs (auto) 0.92 Total Counted Not Reportable Diff Path Review May foll Platelet Estimate ADEQUATE RBC Morphology NORM C+C Sodium 140 Potassium 5.3 H Chloride 100 Carbon Dioxide 22.0 Anion Gap 18 H BUN 132 H* Creatinine 7.08 H Estim Creat Clear Calc 7.66 Est GFR (MDRD) Af Amer 8 L Est GFR (MDRD) Non-Af 6 L BUN/Creatinine Ratio 18.6 Glucose 110 H Calcium 8.0 L Phosphorus 9.7 H* Magnesium 4.0 H Medical Necessity - Tobacco Use Smoking Status: Current every day smoker Tobacco Use: Cigarettes Assessment/Plan All Active Problems Severe sepsis (Acute) Acute respiratory failure with hypoxia (Acute) Pneumonia (Acute) Atrial fibrillation with RVR (Acute) LYNNETTE (acute kidney injury) (Acute) Problem with dialysis access (Acute) 1-Acute kidney injury. Most probably related to ischemic ATN Patient is currently dependent on dialysis for volume and metabolic support. Remains anuric. No recovery of kidney function. Dialysis started on June 17. HD today 2-Acute respiratory failure from community-acquired pneumonia/Influenza A infection. Patient was extubated on June 20. Currently on BiPAP. I will defer O2 support to the ICU team 3-bilateral pneumonia/Influenza A infection. On antibiotics as per the ICU team. Levaquin is appropriately dosed for HD patient 4-A. fib with RVR. Currently on Cardizem drip.
--- NOTE | 2018-06-22 23:47 | DIALYSIS ---
Hemodialysis x 4 hours with 2K bath; Tolerated well. Removed = -1999; Heart rate 140's -160's. RIJ CVC capped & locked with heparin per lumen fill volume. Report given to DEENA Carrion.
[2018-06-23] VITALS (37 sets, daily range): BP systolic 113–142; BP diastolic 67–97; PULSE 108–143; RESP 14–29; TEMP 36.1–36.4; O2SAT 90–95
[2018-06-23] MEDS: Menthol/Lanolin/Calamine/Znox 113 GM Tube 1 APPLIC TOPICAL ×4 (00:19→21:50)
[2018-06-23] MEDS: NYSTATIN 500,000 UNIT/5 ML UDC 500000 UNIT PO ×3 (00:19→11:00)
[2018-06-23] MEDS: Heparin Injection (Vial) 5,000 UNIT/ML VIAL 5000 UNIT SC ×2 (00:19→06:16)
[2018-06-23] MEDS: Heparin 10,000 UNITS/10 ML Vial IV (00:20)
[2018-06-23] MEDS: 0.9% NaCl Peripheral Flush Adult/Peds IV ×3 (00:26→21:52)
[2018-06-23 05:41] LABS: Anion Gap 14 (5-15); BUN 83 mg/dL (7-18); BUN/Creat Ratio 15.8 RATIO (10-20); Calcium,Total 8.4 mg/dL (8.5-10.1); Chloride 100 mmol/L (98-107); Creatinine, Serum 5.25 mg/dL (0.55-1.02); EST Glomerular Filtration Rate 9 mL/min (>60); Est Glom Filt Rate - Afr Amer 11 mL/min (>60); Estimated Creatinine Clearance 10.33 ml/min; Glucose 122 mg/dL (74-106); Sodium Level 139 mmol/L (136-145)
--- NOTE | 2018-06-23 07:06 | PCM.PN.INT ---
Subjective: Patient did okay overnight. Patient remains on the BiPAP most of the time. Patient continues to be in A. fib with RVR despite Cardizem and amiodarone. Patient did receive hemodialysis yesterday with removal of 4 L. Patient denies any pain this morning. General: Alert, Cooperative, No apparent distress, - - Follows commands, but very flat affect. HEENT: Atraumatic, PERRLA, EOMI, Normocephalic, - - Slight scleral injection without icterus Oral: Moist Mucosa, No Gingival or Mucosal Lesions/ Ulcerations Neck: Supple, No JVD, No Nodes, Trachea Midline Lungs: No rhonchi, No wheeze, No rales, Diminished, - - Symmetric expansion. No dullness to percussion. Cardiovascular: Normal S1, Normal S2, No murmurs, Irregular Rate, No rub noted, No Gallop, Tachycardic, - - A. fib noted on the monitor. No V. tach appreciated. Abdomen: Bowel Sounds Present, Soft, Non Tender, Non-Distended, Obese Extremities: No clubbing, No cyanosis, Capillary Refill Less than 3 Seconds, Edema Skin: No rashes, No breakdown Musculoskeletal: No Tenderness to Palpation of Joints or Extremities, No Muscle Wasting Lymphatic: No Cervical, Supraclavicular, or Inguinal Adenopathy Neurological: Cranial nerves II-XII grossly intact, Neuro grossly intact, Motor Exam 5/5 strength throughout Psych/Mental Status: Flat Affect Vital Signs Temp Pulse Resp BP Pulse Ox 36.2 C L 108 H 23 H 113/83 H 94 06/23/18 07:00 06/23/18 07:00 06/23/18 07:00 06/23/18 07:00 06/23/18 07:00 Oxygen Flow Rate (L/min) 4 Oxygen Delivery Method Bi-pap Weight: 110.5 kg Body Mass Index (BMI) 40.4 Intake and Output for Last 24 Hours 06/21/18 06/22/18 06/23/18 23:59 23:59 23:59 Intake Total 182 / 182 626.5 / 626.5 320 / 320 Output Total 15 4022 / 4022 Balance 167 / 167 -3395.5 / -3395.5 320 / 320 Labs (Last 48 Hours) 06/21/18 06/22/18 06/22/18 05:00 05:28 05:28 WBC 18.1 H RBC 4.67 Hgb 13.4 Hct 40.2 MCV 86.1 MCH 28.7 MCHC 33.3 RDW 15.1 H RDW Differential 46.4 H Plt Count 248 MPV 10.8 Immature Gran % (Auto) 2.500 H Neut % (Auto) 90.4 H Lymph % (Auto) 5.1 L [place] % (Auto) 1.8 Eos % (Auto) 0.0 Baso % (Auto) 0.2 Absolute Neuts (auto) 14.0 H 16.3 H Absolute Lymphs (auto) 0.45 L 0.92 Total Counted 100 Not Reportable Neutrophils % (Manual) 91 H Band Neutrophils % 2 Lymphocytes % (Manual) 3 L Monocytes % (Manual) 3 Metamyelocytes % 1 Diff Path Review Reviewed May foll Platelet Estimate ADEQUATE ADEQUATE Plt Morphology Comment LARGE RBC Morphology NORM C+C Polychromasia 1+ Hypochromasia 1+ Anisocytosis 1+ Microcytosis 1+ Sodium 140 Potassium 5.3 H Chloride 100 Carbon Dioxide 22.0 Anion Gap 18 H BUN 132 H* Creatinine 7.08 H Estim Creat Clear Calc 7.66 Est GFR (MDRD) Af Amer 8 L Est GFR (MDRD) Non-Af 6 L BUN/Creatinine Ratio 18.6 Glucose 110 H Calcium 8.0 L Phosphorus Magnesium 06/22/18 06/23/18 05:30 04:20 WBC RBC Hgb Hct MCV MCH MCHC RDW RDW Differential Plt Count MPV Immature Gran % (Auto) Neut % (Auto) Lymph % (Auto) [place] % (Auto) Eos % (Auto) Baso % (Auto) Absolute Neuts (auto) Absolute Lymphs (auto) Total Counted Neutrophils % (Manual) Band Neutrophils % Lymphocytes % (Manual) Monocytes % (Manual) Metamyelocytes % Diff Path Review Platelet Estimate Plt Morphology Comment RBC Morphology Polychromasia Hypochromasia Anisocytosis Microcytosis Sodium 139 Potassium 5.0 Chloride 100 Carbon Dioxide 25.0 Anion Gap 14 BUN 83 H Creatinine 5.25 H Estim Creat Clear Calc 10.33 Est GFR (MDRD) Af Amer 11 L Est GFR (MDRD) Non-Af 9 L BUN/Creatinine Ratio 15.8 Glucose 122 H Calcium 8.4 L Phosphorus 9.7 H* Magnesium 4.0 H Microbiology 06/15/18 21:40 Blood Culture (Wb) - Anticubital Left Blood Culture - Final No growth in 5 days. 06/15/18 21:40 Blood Culture (Wb) - Anticubital Right Blood Culture - Final No growth in 5 days. Medical Necessity - Tobacco Use Smoking Status: Current every day smoker Tobacco Use: Cigarettes Assessment/Plan All Active Problems Severe sepsis (Acute) Acute respiratory failure with hypoxia (Acute) Pneumonia (Acute) Atrial fibrillation with RVR (Acute) LYNNETTE (acute kidney injury) (Acute) Problem with dialysis access (Acute) RECOMMENDATIONS: 1. Continue bowel regimen for prophylaxis 2. Encourage BiPAP breaks as tolerated 3. Transition to prednisone therapy 4. Hemodialysis per nephrology 5. Continue antibiotics to complete a 10-day course. 6. Continue bronchodilators only as needed 7. Await cardiology recommendations, consider anticoagulation IMPRESSIONS: 1. Septic shock with multiorgan system dysfunction secondary to severe community-acquired pneumonia RESOLVED> patient influenza A positive. Patient was originally requiring 3 separate pressors to maintain adequate blood pressure. This may have been complicated by underlying rate control for A. fib. Patient currently off of all pressor therapy. We will continue to monitor. Patient is growing pneumococcus on sputum culture. Patient is responding well to Levaquin therapy. Anticipate 10 days of therapy given bacteremia. 2. Acute hypoxemic and hypercarbic respiratory failure As noted above, clinical concern for severe community-acquired pneumonia. In addition, the patient's brother does have a history of unprovoked venous thromboembolic disease, raising the suspicion for PE as a potential contribution to the patient's decompensation. Patient successfully extubated. Wean oxygen as tolerated. BiPAP should be used with any sleep. Patient having more difficulties tolerating off of BiPAP given A. fib with RVR. Patient continues to use BiPAP essentially [id number]. Will attempt to force BiPAP breaks. Patient's mobility may be limited secondary to A. fib with RVR. 3. New onset atrial fibrillation with rapid ventricular response/troponin elevation/cardiopulmonary arrest Patient with initial presentation of new onset A. fib, but this recurred yesterday. Rate is not controlled at this time. Cardiology is following. Patient is on amiodarone and Cardizem drips. Patient is not on systemic anticoagulation at this time, only DVT prophylaxis. Would defer to cardiology. Patient does not appear to be hemodynamically unstable to require urgent cardioversion. Will defer to cardiology 4. Acute kidney injury/shock liver Shock liver has essentially resolved. However, patient's creatinine is significantly elevated, along with BUN. Patient continues to have marginal urine output. Defer to nephrology on timing of hemodialysis. Unclear if patient will recover renal function. Patient with good removal of fluid yesterday. 5. Metabolic encephalopathy Patient continues to follow commands, but appears to be somewhat confused with more complex tasks. This may be secondary to uremia. Nephrology is following. 6. Unknown medical history/morbid obesity/tobacco dependency Complicates care, management, recovery and prognosis. Nicotine replacement therapy can be considered once the patient is deemed to be stabilized clinically. Okay to initiate tube feeds. Code Visit Inpatient E&M: 96012 Subs Hosp L3
--- NOTE | 2018-06-23 09:06 | PCM.PROGNOTE ---
Patient Problems: Active and Suspected Problems Severe sepsis (Acute) Acute respiratory failure with hypoxia (Acute) Pneumonia (Acute) Atrial fibrillation with RVR (Acute) LYNNETTE (acute kidney injury) (Acute) Problem with dialysis access (Acute) Subjective: Chief complaint: Follow-up after admission for septic shock due to community acquired pneumonia, acute hypoxic and hypercapnic respiratory failure, acute renal failure, new onset A. fib with RVR, status post cardiac arrest and shock liver. Patient seen and examined. No acute events overnight. She remained in A. fib with RVR, started on IV amiodarone drip in addition to IV Cardizem drip. Today, she is alert, awake, responding to commands by head nodding. Reportedly, she is confused and disoriented. She has been afebrile, heart rate has been in the 120s-130s, blood pressure is maintained, on BiPAP. Nursing staff reported that she has been desaturating without BiPAP. She had hemodialysis yesterday, 4 L removed. - Physical Exam General: Alert, Cooperative, - - Minimally short of breath. Alert, follows commands. HEENT: Atraumatic, PERRLA, EOMI, Normocephalic Oral: Moist Mucosa, No Gingival or Mucosal Lesions/ Ulcerations Neck: Supple, No JVD, Negative Carotid Bruits, Trachea Midline, Thyroid Normal Size and Texture Lungs: No rhonchi, No wheeze, No rales, Diminished, Short of Breath Cardiovascular: Normal S1, Normal S2, No murmurs, PMI Normal, Irregular Rate, Tachycardic Abdomen: Bowel Sounds Present, Soft, Non Tender, Non-Distended, No Hepato-splenomegaly, Obese Extremities: No clubbing, No cyanosis, No edema Skin: No rashes, No breakdown Lymphatic: No Cervical, Supraclavicular, or Inguinal Adenopathy Neurological: Cranial nerves II-XII grossly intact, Motor Exam 5/5 strength throughout Psych/Mental Status: Flat Affect Vital Signs Temp Pulse Resp BP Pulse Ox 97.2 F L 125 H 24 H 113/83 H 93 06/23/18 07:00 06/23/18 09:03 06/23/18 09:03 06/23/18 07:00 06/23/18 09:03 Oxygen Flow Rate (L/min) 3 Oxygen Delivery Method Nasal Cannula Weight: 243 lb 9.773 oz Body Mass Index (BMI) 40.4 Intake and Output for Last 24 Hours 06/21/18 06/22/18 06/23/18 23:59 23:59 23:59 Intake Total 182 / 182 626.5 / 626.5 320 / 320 Output Total 4022 / 4022 Balance 167 / 167 -3395.5 / -3395.5 320 / 320 Microbiology Past 72 Hours 06/15/18 21:40 Blood Culture - Final Blood Culture (Wb) - Anticubital Left No growth in 5 days. 06/15/18 21:40 Blood Culture - Final Blood Culture (Wb) - Anticubital Right No growth in 5 days. Laboratory Tests Past 24 Hrs 06/22/18 06/23/18 05:30 04:20 Sodium 139 Potassium 5.0 Chloride 100 Carbon Dioxide 25.0 Anion Gap 14 BUN 83 H Creatinine 5.25 H Estim Creat Clear Calc 10.33 Est GFR (MDRD) Af Amer 11 L Est GFR (MDRD) Non-Af 9 L BUN/Creatinine Ratio 15.8 Glucose 122 H Calcium 8.4 L Phosphorus 9.7 H* Magnesium 4.0 H Medical Necessity - Tobacco Use Smoking Status: Current every day smoker Tobacco Use: Cigarettes Assessment/Plan All Active Problems Severe sepsis (Acute) Acute respiratory failure with hypoxia (Acute) Pneumonia (Acute) Atrial fibrillation with RVR (Acute) LYNNETTE (acute kidney injury) (Acute) Problem with dialysis access (Acute) This is a 58 years old female patient presented to the emergency room because of shortness of breath, cough and fever, found to have multilobar community-acquired pneumonia complicated by septic shock and her hospital course complicated by cardiac arrest status post CPR, A. fib with RVR, acute renal failure requiring hemodialysis as well as elevated LFTs secondary to shock liver. Yesterday afternoon, she went back into A. fib with RVR, received 1 dose of IV amiodarone and now on IV Cardizem drip. #1 septic shock: Blood pressure is maintained, remained in A. fib with RVR, uncontrolled. She has been afebrile. She is on IV Levaquin and IV steroids. Sputum culture revealed Streptococcus pneumoniae. Blood cultures showed no growth in 48 hours. Urine culture showed no growth. Respiratory panel for viruses came back positive for influenza A. Plan to continue same treatment. #2 new onset A. fib with RVR/indeterminate troponin: Now, she is on IV Cardizem and IV amiodarone drip, still heart rate is high, up to 130s, uncontrolled. Blood pressure is maintained. Troponin is indeterminate, no acute ischemic changes on EKG. 2D echocardiogram revealed ejection fraction of 40%, mild to moderate global hypokinesis of the left ventricle. Cardiology on the case. #3 acute streptococcal multilobar community-acquired pneumonia: Remained on IV Levaquin. Sputum culture revealed Streptococcus pneumoniae. Blood culture showed no growth in 48 hours. Urine cultures negative.. Plan to continue same treatment #4 status post cardiac arrest x2: Attributed to new onset A. fib with RVR that is likely precipitated by pneumonia. Her troponin are minimally elevated. EKG revealed no acute ischemic changes. Echocardiogram reviewed as above. At this time, no evidence of acute CHF. #5 acute hypoxic and hypercapnic respiratory failure: Secondary to pneumonia. Status post extubation, remains on BiPAP continuously, nursing staff reported desaturation without BiPAP. Patient may need hemodialysis to improve her respiratory status. #6 acute renal failure/mild hyperkalemia: 5 L was removed yesterday with dialysis, kidney function is improving, BUN and creatinine is trending down. Today's potassium is 5, improved. She still have very poor urine output. Plan for dialysis as per Nephrology recommendation. #7 shock liver: Secondary to septic shock. Liver transaminases as well as total bilirubin continued to improve. Alk phos is normal. Plan as above. #8 DVT prophylaxis: SCDs. This note was generated with [employer] dictation software. It may contain incorrect words, spelling, and punctuation that were not noted in checking the note before signing. Code Visit Inpatient E&M: 59037 Subs Hosp L3
--- NOTE | 2018-06-23 10:08 | PCM.PN.CARD ---
Subjectve: The patient remains in the ICU. She continues to require pulmonary support/BiPAP support. She continues with atrial fibrillation with variable ventricular response. She appears to deny any acute chest discomfort. She continues with shortness of breath and dyspnea. Objective: Vital Signs Temp Pulse Resp BP Pulse Ox 97.2 F L 125 H 24 H 113/83 H 93 06/23/18 07:00 06/23/18 09:03 06/23/18 09:03 06/23/18 07:00 06/23/18 09:03 Oxygen Flow Rate (L/min) 3 Oxygen Delivery Method Bi-pap Weight: 243 lb 9.773 oz Body Mass Index (BMI) 40.4 Intake and Output for Last 24 Hours 06/21/18 06/22/18 06/23/18 23:59 23:59 23:59 Intake Total 182 / 182 626.5 / 626.5 320 / 320 Output Total 15 4022 / 4022 Balance 167 / 167 -3395.5 / -3395.5 320 / 320 General: Awake, Alert, Oriented x 3, Cooperative, Obese HEENT: Atraumatic, Normocephalic, PERRL, EOMI, Sclera Non Icteric Oral: Moist Mucosa Neck: Supple, Good ROM, No JVD Lungs: - - Scattered upper airway sounds Cardiovascular: Irregular Rhythm, Premature Ectopic Beats, Normal S1, Normal S2 Abdomen: Bowel Sounds Present, Soft, Non Tender Extremities: Mild RLE Edema, Mild LLE Edema Psych/Mental Status: Appropriate 06/22/18 05:30: Phosphorus 9.7 H*, Magnesium 4.0 H 06/23/18 04:20: Sodium 139, Potassium 5.0, Chloride 100, Carbon Dioxide 25.0, Anion Gap 14, BUN 83 H, Creatinine 5.25 H, Est GFR (MDRD) Af Amer 11 L, Est GFR (MDRD) Non-Af 9 L, BUN/Creatinine Ratio 15.8, Glucose 122 H, Calcium 8.4 L Rhythm: Atrial fibrillation with variable ventricular response Medical Necessity - Tobacco Use Smoking Status: Current every day smoker Tobacco Use: Cigarettes Assessment/Plan 1. Atrial fibrillation with rapid ventricular response At the present time the patient continues in atrial fibrillation with rapid ventricular response. Her IV diltiazem dose will be increased based upon her continued episodes of rapid ventricular response. She will continue with IV amiodarone which appears to have assisted somewhat in controlling her rate but not yet regaining sinus rhythm. As she is remaining in her atrial dysrhythmia she will be placed on systemic anticoagulant therapy with IV heparin. Also, if her atrial fibrillation continues despite medical management, including care for her underlying pulmonary disease process, she may need to be considered for her future attempt at DC cardioversion. This may need to be proceeded by [facility]. 2. Cardiopulmonary arrest The patient had a report of cardiopulmonary arrest. She has been previously evaluated for this. Based upon the medical records it appears this was thought secondary to her underlying acute pulmonary disease process. She continues in the ICU, continues to be monitored, and is receiving combined medical management. 3. Pulmonary disease The patient continues to undergo pulmonary evaluation care my pulmonology/critical care medicine. She continues to require BiPAP therapy. 4. Acute renal insufficiency The patient's renal function has deteriorated. She now has a temporary dialysis catheter in place. She will continue evaluation care per nephrology. This note was generated using a voice recognition system and there may be incorrect words, spelling or punctuation that were not noted when reviewing the office note prior to saving.
[2018-06-23] MEDS: CHLORHEXIDINE GLUC 2% CLOTH 1 EACH TOWELETTE TOPICAL (10:28)
[2018-06-23] MEDS: Pantoprazole Sodium 40 MG Tablet PO ×2 (10:28→21:50)
[2018-06-23 11:06] LABS: International Normalized Ratio 2.1; Partial Thromboplast Time 27.9 Seconds (24.1-36.2); Prothrombin Time (Protime)PT. 23.6 SECONDS (11.7-14.9)
[2018-06-23 11:07] LABS: Hemoglobin 13.2 g/dl (12.0-15.0); Mean Corp Hgb Conc 34.7 g/gl (32-36); Mean Corpuscular Hgb 29.4 pg (27.0-32.0); Mean Corpuscular Volume 84.6 fL (81-99); Mean Platelet Vol. 11.2 fl (6.2-12.0); Platelet Count 239 K/mm3 (150-450); RBC Distribution Width CV 15.2 % (11.6-14.6); RBC Distribution Width SD 43.9 fl (35.1-43.9); Red Blood Count 4.49 M/mm3 (4.2-5.4); White Blood Count 17.9 K/mm3 (4.4-11.0)
[2018-06-23 11:08] LABS: Differential Indicated MANUAL DIFF; POSITIVE COUNT YES; POSITIVE DIFFERENTIAL YES; POSITIVE MORPHOLOGY YES
[2018-06-23] MEDS: HEPARIN/D5w 25,000 UNITS 25,000 UNITS/250 ML IV.SOLN. 15 UNITS IV (11:26)
[2018-06-23 11:31] LABS: Lymphocyte 5 % (19-41); Metamyelocyte 5 % (0-1); Neutrophil-Band 2 % (0-5); Neutrophil-Segmented 88 % (47-70); Total Cells Counted 100 (MANUAL DIFF)
[2018-06-23 11:32] LABS: Absolute Neutrophil Count 16.1 X10^3/uL (2.0-7.7); Platelet Estimate ADEQUATE (ADEQ); Red Cell Morphology NORM C+C NORMAL (NORM C&C)
--- NOTE | 2018-06-23 11:33 | PN.RENAL_ITS ---
Patient Problems: Active and Suspected Problems Severe sepsis (Acute) Acute respiratory failure with hypoxia (Acute) Pneumonia (Acute) Atrial fibrillation with RVR (Acute) LYNNETTE (acute kidney injury) (Acute) Problem with dialysis access (Acute) Subjective: looks comfortable breathing is better - Physical Exam General: Alert, Oriented x3, Cooperative HEENT: Atraumatic, PERRLA, EOMI, Normocephalic Neck: Supple, No JVD, Negative Carotid Bruits Lungs: Clear to auscultation, Normal air movement Cardiovascular: Regular rate, No murmurs Abdomen: Bowel Sounds Present, Soft, Non Tender Extremities: No edema, Capillary Refill Less than 3 Seconds Skin: No rashes, No breakdown Musculoskeletal: No Tenderness to Palpation of Joints or Extremities Neurological: Cranial nerves II-XII grossly intact Psych/Mental Status: Normal Affect, Appropriate Vital Signs Temp Pulse Resp BP Pulse Ox 97.2 F L 125 H 24 H 113/83 H 93 06/23/18 07:00 06/23/18 09:03 06/23/18 09:03 06/23/18 07:00 06/23/18 09:03 Oxygen Flow Rate (L/min) 3 Oxygen Delivery Method Bi-pap Weight: 110.5 kg Body Mass Index (BMI) 40.4 Intake and Output for Last 24 Hours 06/21/18 06/22/18 06/23/18 23:59 23:59 23:59 Intake Total 182 / 182 626.5 / 626.5 320 / 320 Output Total 15 / 15 4022 / 4022 Balance 167 / 167 -3395.5 / -3395.5 320 / 320 Microbiology Past 72 Hours 06/15/18 21:40 Blood Culture - Final Blood Culture (Wb) - Anticubital Left No growth in 5 days. 06/15/18 21:40 Blood Culture - Final Blood Culture (Wb) - Anticubital Right No growth in 5 days. Laboratory Tests Past 24 Hrs 06/22/18 06/23/18 06/23/18 05:30 04:20 10:45 WBC 17.9 H RBC 4.49 Hgb 13.2 Hct 38.0 MCV 84.6 MCH 29.4 MCHC 34.7 RDW 15.2 H RDW Differential 43.9 Plt Count 239 MPV 11.2 Neut % (Auto) Not Reportable Absolute Neuts (auto) Not Reportable Total Counted Pending PT INR APTT Sodium 139 Potassium 5.0 Chloride 100 Carbon Dioxide 25.0 Anion Gap 14 BUN 83 H Creatinine 5.25 H Estim Creat Clear Calc 10.33 Est GFR (MDRD) Af Amer 11 L Est GFR (MDRD) Non-Af 9 L BUN/Creatinine Ratio 15.8 Glucose 122 H Calcium 8.4 L Phosphorus 9.7 H* Magnesium 4.0 H 06/23/18 10:45 WBC RBC Hgb Hct MCV MCH MCHC RDW RDW Differential Plt Count MPV Neut % (Auto) Absolute Neuts (auto) Total Counted PT 23.6 H INR 2.1 APTT 27.9 Sodium Potassium Chloride Carbon Dioxide Anion Gap BUN Creatinine Estim Creat Clear Calc Est GFR (MDRD) Af Amer Est GFR (MDRD) Non-Af BUN/Creatinine Ratio Glucose Calcium Phosphorus Magnesium Medical Necessity - Tobacco Use Smoking Status: Current every day smoker Tobacco Use: Cigarettes Assessment/Plan All Active Problems Severe sepsis (Acute) Acute respiratory failure with hypoxia (Acute) Pneumonia (Acute) Atrial fibrillation with RVR (Acute) LYNNETTE (acute kidney injury) (Acute) Problem with dialysis access (Acute) 1-Acute kidney injury. Most probably related to ischemic ATN Patient is currently dependent on dialysis for volume and metabolic support. Remains anuric. No recovery of kidney function. Dialysis started on June 17. HD yesterday 2-Acute respiratory failure from community-acquired pneumonia/Influenza A infection. Patient was extubated on June 20. better now 3-bilateral pneumonia/Influenza A infection. On antibiotics as per the ICU team. Levaquin is appropriately dosed for HD patient 4-A. fib with RVR. Currently on Cardizem drip. Plan for today Oxygenation looks better. on ventimask only electrolytes better. remains anuric HD tomorrow access is [facility]
[2018-06-23] MEDS: QUEtiapine 25 MG Tablet PO ×2 (13:16→21:50)
[2018-06-23] MEDS: Nystatin/Triamcin Cream Tube 1 APPLIC TOPICAL ×2 (13:17→21:50)
[2018-06-23] MEDS: Glucerna Shake 120 ML LIQUID PO ×2 (13:17→21:51)
[2018-06-23] MEDS: Acetaminophen 325 MG Tablet 650 MG PO (14:44)
[2018-06-23 18:33] LABS: Partial Thromboplast Time 63.6 Seconds (24.1-36.2)
[2018-06-24] VITALS (33 sets, daily range): BP systolic 104–143; BP diastolic 64–87; PULSE 93–136; RESP 14–32; TEMP 35.9–36.6; O2SAT 87–94
[2018-06-24 00:02] LABS: Partial Thromboplast Time 117.5 Seconds (24.1-36.2)
[2018-06-24] MEDS: fentaNYL 100 MCG/2 ML Ampul 25 MCG IV (00:37)
[2018-06-24] MEDS: HEPARIN/D5w 25,000 UNITS 25,000 UNITS/250 ML IV.SOLN. 15 UNITS IV ×2 (04:53→16:05)
[2018-06-24] MEDS: Nystatin/Triamcin Cream Tube 1 APPLIC TOPICAL ×3 (04:54→21:46)
[2018-06-24] MEDS: Menthol/Lanolin/Calamine/Znox 113 GM Tube 1 APPLIC TOPICAL ×3 (04:54→21:46)
[2018-06-24 05:26] LABS: Partial Thromboplast Time 49.1 Seconds (24.1-36.2)
[2018-06-24 05:48] LABS: Anion Gap 17 (5-15); BUN 116 mg/dL (7-18); BUN/Creat Ratio 16.9 RATIO (10-20); Calcium,Total 7.9 mg/dL (8.5-10.1); Chloride 98 mmol/L (98-107); Creatinine, Serum 6.86 mg/dL (0.55-1.02); EST Glomerular Filtration Rate 7 mL/min (>60); Est Glom Filt Rate - Afr Amer 8 mL/min (>60); Estimated Creatinine Clearance 7.91 ml/min; Glucose 148 mg/dL (74-106); Potassium 5.8 mmol/L (3.5-5.1); Sodium Level 138 mmol/L (136-145)
[2018-06-24] MEDS: Heparin Injection (Vial) 5,000 UNIT/ML VIAL IV (06:15)
--- NOTE | 2018-06-24 07:26 | PCM.PN.INT ---
Subjective: The patient was seen and examined at the bedside this morning. Events from the last 24 hours have been reviewed. The patient is currently afebrile, hemodynamically stable and maintaining appropriate oxygen saturations on BiPAP with an FiO2 requirement of 30%. The patient remains on Cardizem, amiodarone and a heparin drip. She is scheduled to receive hemodialysis today. The patient is currently noted to be overall net +5.5 L for the admission. The patient's potassium was noted to be elevated this morning to 5.8 with an elevated BUN of 116. Objective: The patient's most recent lab work, culture data and imaging studies have all been personally reviewed. Respiratory viral panel was positive for influenza A. Sputum culture was positive for Streptococcus pneumonia. Surface echocardiogram dated June 17 revealed normal LV size with an ejection fraction of 40% and moderate global hypokinesis of the LV. Lower extremity Doppler studies were negative for the presence of DVTs. General: Alert, No apparent distress, - - Tolerating BiPAP currently HEENT: Atraumatic, PERRLA, Normocephalic Oral: No Gingival or Mucosal Lesions/ Ulcerations Neck: Supple, No Nodes, Trachea Midline Lungs: No rhonchi, No wheeze, No rales, Diminished Cardiovascular: Normal S1, Normal S2, No murmurs, Irregular Rate, Tachycardic Abdomen: Bowel Sounds Present, Soft, Non Tender, Obese Extremities: No clubbing, No cyanosis, Edema Skin: No breakdown Musculoskeletal: No Tenderness to Palpation of Joints or Extremities, No Muscle Wasting Lymphatic: No Cervical, Supraclavicular, or Inguinal Adenopathy Neurological: Neuro grossly intact Psych/Mental Status: Flat Affect Vital Signs Temp Pulse Resp BP Pulse Ox 36.1 C L 106 H 20 H 130/78 H 91 06/24/18 07:00 06/24/18 07:17 06/24/18 07:17 06/24/18 07:00 06/24/18 07:17 Oxygen Flow Rate (L/min) 5 Oxygen Delivery Method Bi-pap Weight: 243 lb 2.718 oz Body Mass Index (BMI) 40.4 Intake and Output for Last 24 Hours 06/22/18 06/23/18 06/24/18 23:59 23:59 23:59 Intake Total 626.5 / 626.5 1438 / 1438 253 / 253 Output Total 4022 / 4022 28 / 28 Balance -3395.5 / -3395.5 1410 / 1410 253 / 253 Labs (Last 48 Hours) 06/22/18 06/23/18 06/23/18 05:30 04:20 10:45 WBC 17.9 H RBC 4.49 Hgb 13.2 Hct 38.0 MCV 84.6 MCH 29.4 MCHC 34.7 RDW 15.2 H RDW Differential 43.9 Plt Count 239 MPV 11.2 Neut % (Auto) Not Reportable Absolute Neuts (auto) 16.1 H Absolute Lymphs (auto) 0.90 Total Counted 100 Neutrophils % (Manual) 88 H Band Neutrophils % 2 Lymphocytes % (Manual) 5 L Metamyelocytes % 5 H Diff Path Review May foll Platelet Estimate ADEQUATE RBC Morphology NORM C+C PT INR APTT Sodium 139 Potassium 5.0 Chloride 100 Carbon Dioxide 25.0 Anion Gap 14 BUN 83 H Creatinine 5.25 H Estim Creat Clear Calc 10.33 Est GFR (MDRD) Af Amer 11 L Est GFR (MDRD) Non-Af 9 L BUN/Creatinine Ratio 15.8 Glucose 122 H Calcium 8.4 L Phosphorus 9.7 H* Magnesium 4.0 H 06/23/18 06/23/18 06/23/18 10:45 17:45 23:30 WBC RBC Hgb Hct MCV MCH MCHC RDW RDW Differential Plt Count MPV Neut % (Auto) Absolute Neuts (auto) Absolute Lymphs (auto) Total Counted Neutrophils % (Manual) Band Neutrophils % Lymphocytes % (Manual) Metamyelocytes % Diff Path Review Platelet Estimate RBC Morphology PT 23.6 H INR 2.1 APTT 27.9 63.6 H 117.5 H* Sodium Potassium Chloride Carbon Dioxide Anion Gap BUN Creatinine Estim Creat Clear Calc Est GFR (MDRD) Af Amer Est GFR (MDRD) Non-Af BUN/Creatinine Ratio Glucose Calcium Phosphorus Magnesium 06/24/18 06/24/18 04:45 04:45 WBC RBC Hgb Hct MCV MCH MCHC RDW RDW Differential Plt Count MPV Neut % (Auto) Absolute Neuts (auto) Absolute Lymphs (auto) Total Counted Neutrophils % (Manual) Band Neutrophils % Lymphocytes % (Manual) Metamyelocytes % Diff Path Review Platelet Estimate RBC Morphology PT INR APTT 49.1 H Sodium 138 Potassium 5.8 H Chloride 98 Carbon Dioxide 23.0 Anion Gap 17 H BUN 116 H* Creatinine 6.86 H Estim Creat Clear Calc 7.91 Est GFR (MDRD) Af Amer 8 L Est GFR (MDRD) Non-Af 7 L BUN/Creatinine Ratio 16.9 Glucose 148 H Calcium 7.9 L Phosphorus Magnesium Clinical Impression(s) from Imaging Studies Chest X-Ray 06/15/18 20:40 IMPRESSION: 1. Right lower lobe airspace disease. Given distinct margin along the superior border, an air-fluid level cannot be excluded. Chest CT may be warranted. 2. Mild infiltrate in the left lung base could also represent pneumonia. Electronically Signed: Alejandro Arizmendi MD at 21:01 EST , Service support , Chest X-Ray 06/16/18 03:40 IMPRESSION: NG tube and ET tube in place with the ET tube 5.3 cm above the isai. Improving consolidations in both lower nodes Electronically Signed: Kwesi Whalen MD at 4:59 EST Tel , Service support , KUB X-Ray 06/16/18 03:40 Chest X-Ray 06/16/18 07:23 IMPRESSION: There is consolidation right midlung zone left lower lobe suspicious for pneumonia. Lines as detailed above. The NG tube could be advanced 5 cm. Electronically Signed: Carline Nieto MD at 10:02 EST Tel , Service support , Chest X-Ray 06/17/18 10:39 IMPRESSION: The newly placed left internal jugular venous catheter is present. The tip is heading cephalad in the mid superior vena cava. The remainder of the examination is unchanged. Electronically Signed: Philip Arriola MD at 11:30 EST , Service support , Chest X-Ray 06/17/18 13:28 IMPRESSION: A new right-sided internal jugular venous line is placed the tip is in the superior vena cava. There is no pneumothorax. Right greater than left lower lobe opacity suspicious for pneumonia. Potentially pleural effusion and atelectasis could have this appearance. Electronically Signed: Carline Nieto MD at 15:22 EST Tel , Service support , Chest X-Ray 06/19/18 16:55 IMPRESSION: Satisfactory position of the right-sided central catheter. Otherwise, no significant change. Electronically Signed: Vidal Velasquez, at 17:22 EST Tel , Service support , Medical Necessity - Tobacco Use Smoking Status: Current every day smoker Tobacco Use: Cigarettes Assessment/Plan All Active Problems Severe sepsis (Acute) Acute respiratory failure with hypoxia (Acute) Pneumonia (Acute) Atrial fibrillation with RVR (Acute) LYNNETTE (acute kidney injury) (Acute) Problem with dialysis access (Acute) RECOMMENDATIONS: 1. Continue BiPAP as needed. Wean as tolerated. 2. Continue antibiotics to complete a 10-day treatment course. 3. Continue as needed bronchodilators. 4. Transition from IV Solu-Medrol to prednisone 40 mg daily. 5. Encourage incentive spirometer use and mobilize patient as tolerated. IMPRESSIONS: 1. Septic shock with multiorgan system dysfunction secondary to severe community-acquired pneumonia Resolved at this time. The patient responded appropriately to antimicrobial therapy along with invasive mechanical ventilation. Hemodynamics remain stable. Antibiotics will be continued to complete a 10-day treatment course. 2. Acute hypoxemic and hypercarbic respiratory failure Significantly improved. Continue supportive measures and antibiotics as noted above. The patient can be weaned from BiPAP therapy with supplemental oxygen to be weaned to maintain a saturation at or above 90%. Encourage incentive spirometer use and mobilize patient as tolerated. 3. Atrial fibrillation Continue current medical management per cardiology recommendations. 4. Acute kidney injury/shock liver Continue hemodialysis support per nephrology recommendations. This note was generated with [employer] software. It may contain incorrect words, spelling, and punctuation that were not noted in checking the note before signing. Code Visit Inpatient E&M: 90129 Subs Hosp L3
--- NOTE | 2018-06-24 07:32 | PN_ITS ---
Subjective: The patient was seen and examined at the bedside this morning. Events from the last 24 hours have been reviewed. The patient is currently afebrile, hemodynamically stable and maintaining appropriate oxygen saturations on BiPAP with an FiO2 requirement of 30%. The patient remains on Cardizem, amiodarone and a heparin drip. She is scheduled to receive hemodialysis today. The patient is currently noted to be overall net +5.5 L for the admission. The patient's potassium was noted to be elevated this morning to 5.8 with an elevated BUN of 116. Objective: The patient's most recent lab work, culture data and imaging studies have all been personally reviewed. Respiratory viral panel was positive for influenza A. Sputum culture was positive for Streptococcus pneumonia. Surface echocardiogram dated June 17 revealed normal LV size with an ejection fraction of 40% and moderate global hypokinesis of the LV. Lower extremity Doppler studies were negative for the presence of DVTs. General: Alert, No apparent distress, - - Tolerating BiPAP currently HEENT: Atraumatic, PERRLA, Normocephalic Oral: No Gingival or Mucosal Lesions/ Ulcerations Neck: Supple, No Nodes, Trachea Midline Lungs: No rhonchi, No wheeze, No rales, Diminished Cardiovascular: Normal S1, Normal S2, No murmurs, Irregular Rate, Tachycardic Abdomen: Bowel Sounds Present, Soft, Non Tender, Obese Extremities: No clubbing, No cyanosis, Edema Skin: No breakdown Musculoskeletal: No Tenderness to Palpation of Joints or Extremities, No Muscle Wasting Lymphatic: No Cervical, Supraclavicular, or Inguinal Adenopathy Neurological: Neuro grossly intact Psych/Mental Status: Flat Affect Vital Signs Temp Pulse Resp BP Pulse Ox 36.1 C L 106 H 20 H 130/78 H 91 06/24/18 07:00 06/24/18 07:17 06/24/18 07:17 06/24/18 07:00 06/24/18 07:17 Oxygen Flow Rate (L/min) 5 Oxygen Delivery Method Bi-pap Weight: 243 lb 2.718 oz Body Mass Index (BMI) 40.4 Intake and Output for Last 24 Hours 06/22/18 06/23/18 06/24/18 23:59 23:59 23:59 Intake Total 626.5 / 626.5 1438 / 1438 253 / 253 Output Total 4022 / 4022 28 / 28 Balance -3395.5 / -3395.5 1410 / 1410 253 / 253 Labs (Last 48 Hours) 06/22/18 06/23/18 06/23/18 05:30 04:20 10:45 WBC 17.9 H RBC 4.49 Hgb 13.2 Hct 38.0 MCV 84.6 MCH 29.4 MCHC 34.7 RDW 15.2 H RDW Differential 43.9 Plt Count 239 MPV 11.2 Neut % (Auto) Not Reportable Absolute Neuts (auto) 16.1 H Absolute Lymphs (auto) 0.90 Total Counted 100 Neutrophils % (Manual) 88 H Band Neutrophils % 2 Lymphocytes % (Manual) 5 L Metamyelocytes % 5 H Diff Path Review May foll Platelet Estimate ADEQUATE RBC Morphology NORM C+C PT INR APTT Sodium 139 Potassium 5.0 Chloride 100 Carbon Dioxide 25.0 Anion Gap 14 BUN 83 H Creatinine 5.25 H Estim Creat Clear Calc 10.33 Est GFR (MDRD) Af Amer 11 L Est GFR (MDRD) Non-Af 9 L BUN/Creatinine Ratio 15.8 Glucose 122 H Calcium 8.4 L Phosphorus 9.7 H* Magnesium 4.0 H 06/23/18 06/23/18 06/23/18 10:45 17:45 23:30 WBC RBC Hgb Hct MCV MCH MCHC RDW RDW Differential Plt Count MPV Neut % (Auto) Absolute Neuts (auto) Absolute Lymphs (auto) Total Counted Neutrophils % (Manual) Band Neutrophils % Lymphocytes % (Manual) Metamyelocytes % Diff Path Review Platelet Estimate RBC Morphology PT 23.6 H INR 2.1 APTT 27.9 63.6 H 117.5 H* Sodium Potassium Chloride Carbon Dioxide Anion Gap BUN Creatinine Estim Creat Clear Calc Est GFR (MDRD) Af Amer Est GFR (MDRD) Non-Af BUN/Creatinine Ratio Glucose Calcium Phosphorus Magnesium 06/24/18 06/24/18 04:45 04:45 WBC RBC Hgb Hct MCV MCH MCHC RDW RDW Differential Plt Count MPV Neut % (Auto) Absolute Neuts (auto) Absolute Lymphs (auto) Total Counted Neutrophils % (Manual) Band Neutrophils % Lymphocytes % (Manual) Metamyelocytes % Diff Path Review Platelet Estimate RBC Morphology PT INR APTT 49.1 H Sodium 138 Potassium 5.8 H Chloride 98 Carbon Dioxide 23.0 Anion Gap 17 H BUN 116 H* Creatinine 6.86 H Estim Creat Clear Calc 7.91 Est GFR (MDRD) Af Amer 8 L Est GFR (MDRD) Non-Af 7 L BUN/Creatinine Ratio 16.9 Glucose 148 H Calcium 7.9 L Phosphorus Magnesium Clinical Impression(s) from Imaging Studies Chest X-Ray 06/15/18 20:40 IMPRESSION: 1. Right lower lobe airspace disease. Given distinct margin along the superior border, an air-fluid level cannot be excluded. Chest CT may be warranted. 2. Mild infiltrate in the left lung base could also represent pneumonia. Electronically Signed: Alejandro Arizmendi MD at 21:01 EST , Service support , Chest X-Ray 06/16/18 03:40 IMPRESSION: NG tube and ET tube in place with the ET tube 5.3 cm above the isai. Improving consolidations in both lower nodes Electronically Signed: Kwesi Whalen MD at 4:59 EST Tel , Service support , KUB X-Ray 06/16/18 03:40 Chest X-Ray 06/16/18 07:23 IMPRESSION: There is consolidation right midlung zone left lower lobe suspicious for pneumonia. Lines as detailed above. The NG tube could be advanced 5 cm. Electronically Signed: Carline Nieto MD at 10:02 EST Tel , Service support , Chest X-Ray 06/17/18 10:39 IMPRESSION: The newly placed left internal jugular venous catheter is present. The tip is heading cephalad in the mid superior vena cava. The remainder of the examination is unchanged. Electronically Signed: Philip Arriola MD at 11:30 EST , Service support , Chest X-Ray 06/17/18 13:28 IMPRESSION: A new right-sided internal jugular venous line is placed the tip is in the superior vena cava. There is no pneumothorax. Right greater than left lower lobe opacity suspicious for pneumonia. Potentially pleural effusion and atelectasis could have this appearance. Electronically Signed: Carline Nieto MD at 15:22 EST Tel , Service support , Chest X-Ray 06/19/18 16:55 IMPRESSION: Satisfactory position of the right-sided central catheter. Otherwise, no significant change. Electronically Signed: Vidal Velasquez, at 17:22 EST Tel , Service support , Medical Necessity - Tobacco Use Smoking Status: Current every day smoker Tobacco Use: Cigarettes Assessment/Plan All Active Problems Severe sepsis (Acute) Acute respiratory failure with hypoxia (Acute) Pneumonia (Acute) Atrial fibrillation with RVR (Acute) LYNNETTE (acute kidney injury) (Acute) Problem with dialysis access (Acute) RECOMMENDATIONS: 1. Continue BiPAP as needed. Wean as tolerated. 2. Continue antibiotics to complete a 10-day treatment course. 3. Continue as needed bronchodilators. 4. Transition from IV Solu-Medrol to prednisone 40 mg daily. 5. Encourage incentive spirometer use and mobilize patient as tolerated. IMPRESSIONS: 1. Septic shock with multiorgan system dysfunction secondary to severe community-acquired pneumonia Resolved at this time. The patient responded appropriately to antimicrobial therapy along with invasive mechanical ventilation. Hemodynamics remain stable. Antibiotics will be continued to complete a 10-day treatment course. 2. Acute hypoxemic and hypercarbic respiratory failure Significantly improved. Continue supportive measures and antibiotics as noted above. The patient can be weaned from BiPAP therapy with supplemental oxygen to be weaned to maintain a saturation at or above 90%. Encourage incentive sp irometer use and mobilize patient as tolerated. 3. Atrial fibrillation Continue current medical management per cardiology recommendations. 4. Acute kidney injury/shock liver Continue hemodialysis support per nephrology recommendations. This note was generated with [employer] software. It may contain incorrect words, spelling, and punctuation that were not noted in checking the note before signing. Code Visit Inpatient E&M: 60666 Subs Hosp L3
--- NOTE | 2018-06-24 08:31 | PCM.PN.CARD ---
Subjectve: Patient seen and evaluated. Appears to be tolerating BiPAP. Not intubated yet. Events of the weekend noted. Objective: Vital Signs Temp Pulse Resp BP Pulse Ox 96.9 F L 106 H 20 H 130/78 H 91 06/24/18 07:00 06/24/18 07:17 06/24/18 07:17 06/24/18 07:00 06/24/18 07:17 Oxygen Flow Rate (L/min) 5 Oxygen Delivery Method Bi-pap Weight: 243 lb 2.718 oz Body Mass Index (BMI) 40.4 Intake and Output for Last 24 Hours 06/22/18 06/23/18 06/24/18 23:59 23:59 23:59 Intake Total 626.5 / 626.5 1438 / 1438 253 / 253 Output Total 4022 / 4022 28 / 28 Balance -3395.5 / -3395.5 1410 / 1410 253 / 253 General: Awake, Alert, Oriented x 3, Ill Appearing HEENT: PERRL, EOMI, Sclera Non Icteric Neck: Supple, Good ROM, No Lymph Node Enlargement Lungs: Clear to auscultation Cardiovascular: Regular Rhythm, Normal S1, Normal S2, No Murmurs, No Rubs, No Gallops Vascular: No Carotid Bruits, Normal Femoral Pulses, Normal Radial Pulses, Normal Dorsalis Pedal Pulse, Normal Posterior Tibial Pulses Abdomen: Bowel Sounds Present, Soft, Non Tender, No HSM, No Organomegaly, Obese Extremities: No Cyanosis, No Clubbing, No edema Musculoskeletal: No Erythema Skin: No Rashes Lymphatic: No Lymph Node Enlargement Neurological: No Focal Motor or Sensory Deficit Psych/Mental Status: Appropriate 06/23/18 10:45: WBC 17.9 H, RBC 4.49, Hgb 13.2, Hct 38.0, MCV 84.6, MCH 29.4, MCHC 34.7, RDW 15.2 H, RDW Differential 43.9, Plt Count 239, MPV 11.2, Neut % (Auto) Not Reportable, Absolute Neuts (auto) 16.1 H, Total Counted 100, Neutrophils % (Manual) 88 H, Band Neutrophils % 2, Lymphocytes % (Manual) 5 L, Metamyelocytes % 5 H 06/23/18 10:45: PT 23.6 H, INR 2.1, APTT 27.9 02/24/19 17:45: APTT 63.6 H 06/23/18 23:30: APTT 117.5 H* 06/24/18 04:45: Sodium 138, Potassium 5.8 H, Chloride 98, Carbon Dioxide 23.0, Anion Gap 17 H, BUN 116 H*, Creatinine 6.86 H, Est GFR (MDRD) Af Amer 8 L, Est GFR (MDRD) Non-Af 7 L, BUN/Creatinine Ratio 16.9, Glucose 148 H, Calcium 7.9 L 06/24/18 04:45: APTT 49.1 H Rhythm: EKG: ECHO: Stress Test: Cardiac Cath: PCI: CT Surgery: Holter monitor: EPS: PPM: CXR: Chest CT Scan: Medical Necessity - Tobacco Use Smoking Status: Current every day smoker Tobacco Use: Cigarettes Assessment/Plan 1. Atrial fibrillation Patient presented with atrial fibrillation likely secondary to her lung condition. . Echocardiogram done demonstrated mild to moderately globally reduced left ventricular systolic function. I do not think that long-term anticoagulation is warranted at this time. She will remain on the heparin. I do not have any plans at this time for DC cardioversion however. 2. Cardiopulmonary arrest I suspect the above is on the basis of severe hypoxia as well as the bradycardia arrhythmia secondary to the beta-moris that the patient was receiving. That appears to have resolved and currently patient is on supportive management with three-vasoactive agents. We will try and titrate to maintain a mean arterial pressure of 65 mmHg. 3. Lung consolidation I suspect the above is on the basis of an infection and not a pulmonary embolism with pulmonary infarction. 4. Abnormal cardiac enzymes Above is likely secondary to demand ischemia. No further workup at this time 5. Acute renal insufficiency The above is likely secondary to her septic state, hypotension and poor perfusion likely on an underlying baseline renal dysfunction. Will continue with dialysis We will continue to follow with you peripherally.
--- NOTE | 2018-06-24 08:52 | PN.CARD_ITS ---
Subjectve: Patient seen and evaluated. Appears to be tolerating BiPAP. Not intubated yet. Events of the weekend noted. Objective: Vital Signs Temp Pulse Resp BP Pulse Ox 96.9 F L 106 H 20 H 130/78 H 91 06/24/18 07:00 06/24/18 07:17 06/24/18 07:17 06/24/18 07:00 06/24/18 07:17 Oxygen Flow Rate (L/min) 5 Oxygen Delivery Method Bi-pap Weight: 243 lb 2.718 oz Body Mass Index (BMI) 40.4 Intake and Output for Last 24 Hours 06/22/18 06/23/18 06/24/18 23:59 23:59 23:59 Intake Total 626.5 / 626.5 1438 / 1438 253 / 253 Output Total 4022 / 4022 28 / 28 Balance -3395.5 / -3395.5 1410 / 1410 253 / 253 General: Awake, Alert, Oriented x 3, Ill Appearing HEENT: PERRL, EOMI, Sclera Non Icteric Neck: Supple, Good ROM, No Lymph Node Enlargement Lungs: Clear to auscultation Cardiovascular: Regular Rhythm, Normal S1, Normal S2, No Murmurs, No Rubs, No Gallops Vascular: No Carotid Bruits, Normal Femoral Pulses, Normal Radial Pulses, Normal Dorsalis Pedal Pulse, Normal Posterior Tibial Pulses Abdomen: Bowel Sounds Present, Soft, Non Tender, No HSM, No Organomegaly, Obese Extremities: No Cyanosis, No Clubbing, No edema Musculoskeletal: No Erythema Skin: No Rashes Lymphatic: No Lymph Node Enlargement Neurological: No Focal Motor or Sensory Deficit Psych/Mental Status: Appropriate 06/23/18 10:45: WBC 17.9 H, RBC 4.49, Hgb 13.2, Hct 38.0, MCV 84.6, MCH 29.4, MCHC 34.7, RDW 15.2 H, RDW Differential 43.9, Plt Count 239, MPV 11.2, Neut % (Auto) Not Reportable, Absolute Neuts (auto) 16.1 H, Total Counted 100, Neutrophils % (Manual) 88 H, Band Neutrophils % 2, Lymphocytes % (Manual) 5 L, Metamyelocytes % 5 H 06/23/18 10:45: PT 23.6 H, INR 2.1, APTT 27.9 02/24/19 17:45: APTT 63.6 H 06/23/18 23:30: APTT 117.5 H* 06/24/18 04:45: Sodium 138, Potassium 5.8 H, Chloride 98, Carbon Dioxide 23.0, Anion Gap 17 H, BUN 116 H*, Creatinine 6.86 H, Est GFR (MDRD) Af Amer 8 L, Est GFR (MDRD) Non-Af 7 L, BUN/Creatinine Ratio 16.9, Glucose 148 H, Calcium 7.9 L 06/24/18 04:45: APTT 49.1 H Rhythm: EKG: ECHO: Stress Test: Cardiac Cath: PCI: CT Surgery: Holter monitor: EPS: PPM: CXR: Chest CT Scan: Medical Necessity - Tobacco Use Smoking Status: Current every day smoker Tobacco Use: Cigarettes Assessment/Plan 1. Atrial fibrillation * Patient presented with atrial fibrillation likely secondary to her lung condition. . * Echocardiogram done demonstrated mild to moderately globally reduced left ventricular systolic function. * I do not think that long-term anticoagulation is warranted at this time. She will remain on the heparin. * I do not have any plans at this time for DC cardioversion however. 2. Cardiopulmonary arrest * I suspect the above is on the basis of severe hypoxia as well as the bradycardia arrhythmia secondary to the beta-moris that the patient was receiving. * That appears to have resolved and currently patient is on supportive management with three-vasoactive agents. We will try and titrate to maintain a mean arterial pressure of 65 mmHg. 3. Lung consolidation * I suspect the above is on the basis of an infection and not a pulmonary embolism with pulmonary infarction. * * 4. Abnormal cardiac enzymes * Above is likely secondary to demand ischemia. * No further workup at this time 5. Acute renal insufficiency * The above is likely secondary to her septic state, hypotension and poor perfusion likely on an underlying baseline renal dysfunction. * Will continue with dialysis * We will continue to follow with you peripherally. * *
--- NOTE | 2018-06-24 09:10 | PN_ITS ---
Patient Problems: Active and Suspected Problems Severe sepsis (Acute) Acute respiratory failure with hypoxia (Acute) Pneumonia (Acute) Atrial fibrillation with RVR (Acute) LYNNETTE (acute kidney injury) (Acute) Problem with dialysis access (Acute) Subjective: Patient was admitted for septic shock due to community acquired pneumonia, acute hypoxic and hypercapnic respiratory failure, acute renal failure, new onset A. fib with RVR, status post cardiac arrest and shock liver. Patient is on BiPAP. On IV Cardizem and amiodarone drip and heparin drip. No fever Left IJ triple lumen central venous catheter. Right subclavian hemodialysis catheter. Lower extremity edema. Vitals/I&O's: Vital Signs Temp Pulse Resp BP Pulse Ox 96.7 F L 100 21 H 139/84 H 92 06/24/18 08:00 06/24/18 08:00 06/24/18 08:00 06/24/18 08:00 06/24/18 08:00 Oxygen Flow Rate (L/min) 5 Oxygen Delivery Method Bi-pap Weight: 243 lb 2.718 oz Body Mass Index (BMI) 40.4 Intake and Output for Last 24 Hours 06/22/18 06/23/18 06/24/18 23:59 23:59 23:59 Intake Total 626.5 / 626.5 1438 / 1438 253 / 253 Output Total 4022 / 4022 / Balance -3395.5 / -3395.5 1410 / 1410 253 / 253 General: Alert, Oriented x3, Cooperative HEENT: Atraumatic, PERRLA, EOMI, Normocephalic Oral: - - On BiPAP Neck: Supple, No JVD, Negative Carotid Bruits Lungs: Diminished, Rhonchi, Short of Breath, - - On BiPAP Cardiovascular: Normal S1, Normal S2, No murmurs, Irregular Rate, Tachycardic Abdomen: Bowel Sounds Present, Soft, Non Tender, Non-Distended Extremities: No edema, Capillary Refill Less than 3 Seconds Skin: No rashes, No breakdown Musculoskeletal: No Tenderness to Palpation of Joints or Extremities, Arthritic Changes, Muscle Wasting Neurological: Cranial nerves II-XII grossly intact, Neuro grossly intact Psych/Mental Status: Normal Affect, Appropriate Microbiology Past 72 Hours 06/15/18 21:40 Blood Culture (Wb) - Anticubital Left Blood Culture - Final No growth in 5 days. 06/15/18 21:40 Blood Culture (Wb) - Anticubital Right Blood Culture - Final No growth in 5 days. Laboratory Results 06/23/18 10:45: WBC 17.9 H, RBC 4.49, Hgb 13.2, Hct 38.0, MCV 84.6, MCH 29.4, MCHC 34.7, RDW 15.2 H, RDW Differential 43.9, Plt Count 239, MPV 11.2, Neut % (Auto) Not Reportable, Absolute Neuts (auto) 16.1 H, Absolute Lymphs (auto) 0.90, Total Counted 100, Neutrophils % (Manual) 88 H, Band Neutrophils % 2, Lymphocytes % (Manual) 5 L, Metamyelocytes % 5 H, Diff Path Review August, Platelet Estimate ADEQUATE, RBC Morphology NORM C+C 06/23/18 10:45: PT 23.6 H, INR 2.1, APTT 27.9 06/23/18 17:45: APTT 63.6 H 06/23/18 23:30: APTT 117.5 H* 06/24/18 04:45: Sodium 138, Potassium 5.8 H, Chloride 98, Carbon Dioxide 23.0, Anion Gap 17 H, BUN 116 H*, Creatinine 6.86 H, Estim Creat Clear Calc 7.91, Est GFR (MDRD) Af Amer 8 L, Est GFR (MDRD) Non-Af 7 L, BUN/Creatinine Ratio 16.9, Glucose 148 H, Calcium 7.9 L 06/24/18 04:45: APTT 49.1 H Current Medications Acetaminophen (Tylenol) 650 mg PO Q6H PRN PRN PRN Reason: PAIN Last Admin: 06/23/18 14:44 Dose: 650 mg Albuterol Sulfate (Ventolin Aerosols) 2.5 mg INHALATION Q2H PRN PRN PRN Reason: SHORTNESS OF BREATH Calamine/Phenol (Calmoseptine Ointment) 1 applic TOPICAL TID DYLAN; Protocol Last Admin: 06/24/18 04:54 Dose: 1 applicatio Chlorhexidine Gluconate () 1 each TOPICAL DAILY DYLAN Last Admin: 06/23/18 10:28 Dose: 1 each Fentanyl Citrate (Sublimaze (100mcg Ampule)) 25 mcg IV Q2H PRN PRN PRN Reason: PAIN Last Admin: 06/24/18 00:37 Dose: 25 mcg Heparin Sodium (Porcine) (Heparin Na) 0 unit IV UD PRN; Protocol Last Admin: 06/24/18 06:15 Dose: 1,000 unit Sodium Chloride () 250 mls @ 15 mls/hr IV .[id number] PRN PRN Reason: SALINE FLUSH Last Admin: 06/17/18 21:17 Dose: 15 mls/hr Levofloxacin (Levaquin Iv) 500 mg in 100 mls @ 100 mls/hr IV Q48H [facility] Stop: 06/24/18 10:59 Last Admin: 06/22/18 10:54 Dose: 100 mls/hr Diltiazem HCl 125 mg/ Dextrose 125 mls @ 15 mls/hr IV .[id number] [facility] Last Admin: 06/24/18 07:04 Dose: 15 mls/hr Heparin Sodium/Dextrose () 25,000 units in 250 mls @ 15 mls/hr IV .[id number] [facility]; Protocol Last Admin: 06/24/18 04:53 Dose: 15 mls/hr Amiodarone HCl 360 mg/ (Dextrose) 200 mls @ 16.67 mls/hr CONT INF .Q12H [facility] Last Admin: 06/24/18 05:06 Dose: 16.67 mls/hr Methylprednisolone (Solu-Medrol) 40 mg IV Q12 [facility] Last Admin: 06/23/18 21:51 Dose: 40 mg Nutritional Formula (Lactose Free) (Glucerna Shake) 120 ml PO 4X/DAY [facility] Last Admin: 06/23/18 21:51 Dose: 120 ml Nystatin (Nystatin) 500,000 unit PO Q6H [facility] Last Admin: 06/24/18 04:55 Dose: Not Given Nystatin/Triamcinolone Acetonide (Mycolog) 1 applic TOPICAL TID [facility]; Protocol Last Admin: 06/24/18 04:54 Dose: 1 applic Ondansetron HCl (Zofran) 4 mg IV Q8H PRN PRN PRN Reason: NAUSEA/VOMITING Pantoprazole Sodium (Protonix) 40 mg PO BID [facility] Last Admin: 06/23/18 21:50 Dose: 40 mg Quetiapine Fumarate (Seroquel) 25 mg PO BID [facility] Last Admin: 06/23/18 21:50 Dose: 25 mg Senna/Docusate Sodium (Senokot-S, Yanet-Colace) 2 tablet PO DAILY PRN PRN PRN Reason: CONSTIPATION Sodium Chloride () 5 - 15 ml IV UD PRN PRN Reason: SALINE FLUSH Last Admin: 06/23/18 21:52 Dose: 10 ml Sodium Chloride () 10 - 40 ml IV UD PRN PRN Reason: MULTILUMEN/HICMAN CATH FLUSH Last Admin: 06/24/18 06:17 Dose: 10 ml Medical Necessity - Tobacco Use Smoking Status: Current every day smoker Tobacco Use: Cigarettes Assessment/Plan All Active Problems Severe sepsis (Acute) Acute respiratory failure with hypoxia (Acute) Pneumonia (Acute) Atrial fibrillation with RVR (Acute) LYNNETTE (acute kidney injury) (Acute) Problem with dialysis access (Acute) This is a 58 years old female patient who is being admitted to ICU from ER because of shortness of breath, cough and fever, found to have multilobar community-acquired pneumonia complicated by septic shock and her hospital course complicated by cardiac arrest status post CPR, A. fib with RVR, acute renal failure requiring hemodialysis as well as elevated LFTs secondary to shock liver. On 06/22, she went back into A. fib with RVR, received 1 dose of IV amiodarone and now on IV Cardizem drip. #1 septic shock: Blood pressure is maintained, remained in A. fib with RVR, uncontrolled. She has been afebrile. She is on IV Levaquin and IV steroids. Sputum culture revealed Streptococcus pneumoniae. Blood cultures showed no growth in 48 hours. Urine culture showed no growth. Respiratory panel for viruses came back positive for influenza A. Plan to continue same treatment. #2 new onset A. fib with RVR/indeterminate troponin: She is on fixed rate of IV Cardizem and IV amiodarone drip; heart rate is better in 116 but fluctuates. Blood pressure is maintained. Troponin is indeterminate, no acute ischemic changes on EKG. 2D echocardiogram revealed ejection fraction of 40%, mild to moderate global hypokinesis of the left ventricle. Cardiology on the case. #3 acute streptococcal multilobar community-acquired pneumonia: Remained on IV Levaquin. Sputum culture revealed Streptococcus pneumoniae. Blood culture showed no growth in 48 hours. Urine cultures negative. Plan to continue same treatment #4 status post cardiac arrest x2: Attributed to new onset A. fib with RVR that is likely precipitated by pneumonia. Her troponin are minimally elevated. EKG revealed no acute ischemic changes. Echocardiogram reviewed as above. At this time, no evidence of acute CHF. #5 acute hypoxic and hypercapnic respiratory failure: Secondary to pneumonia. Status post extubation, remains on BiPAP continuously, nursing staff reported desaturation without BiPAP. #6 acute renal failure/mild hyperkalemia: Patient is still has minimal urine output about 20 mL. On 06/22 for liter of fluid was removed by hemodialysis. K is 5.8. BUN 116, creatinine 6.86. Plan for dialysis as per Nephrology recommendation. #7 shock liver: Secondary to septic shock. Liver transaminases as well as total bilirubin continued to improve. Alk phos is normal. Monitor LFT #8 DVT prophylaxis: SCDs. Active Medications Acetaminophen (Tylenol) 650 mg PO Q6H PRN PRN PRN Reason: PAIN Last Admin: 06/24/18 12:30 Dose: 650 mg Albuterol Sulfate (Ventolin Aerosols) 2.5 mg INHALATION Q2H PRN PRN PRN Reason: SHORTNESS OF BREATH Calamine/Phenol (Calmoseptine Ointment) 1 applic TOPICAL TID DYLAN; Protocol Last Admin: 06/24/18 04:54 Dose: 1 applicatio Fentanyl Citrate (Sublimaze (100mcg Ampule)) 25 mcg IV Q2H PRN PRN PRN Reason: PAIN Last Admin: 06/24/18 00:37 Dose: 25 mcg Heparin Sodium (Porcine) (Heparin Na) 0 unit IV UD PRN; Protocol Last Admin: 06/24/18 06:15 Dose: 1,000 unit Sodium Chloride () 250 mls @ 15 mls/hr IV .[id number] PRN PRN Reason: SALINE FLUSH Last Admin: 06/17/18 21:17 Dose: 15 mls/hr Diltiazem HCl 125 mg/ Dextrose 125 mls @ 15 mls/hr IV .[id number] DYLAN Last Admin: 06/24/18 07:04 Dose: 15 mls/hr Heparin Sodium/Dextrose () 25,000 units in 250 mls @ 15 mls/hr IV .[id number] DYLAN; Protocol Last Admin: 06/24/18 04:53 Dose: 15 mls/hr Amiodarone HCl 360 mg/ (Dextrose) 200 mls @ 16.67 mls/hr CONT INF .Q12H [facility] Last Admin: 06/24/18 05:06 Dose: 16.67 mls/hr Ipratropium [place] (Atrovent) 0.5 mg INHALATION Q4H.RT PRN PRN Reason: SOB &/OR WHEEZING Methylprednisolone (Solu-Medrol) 40 mg IV Q12 [facility] Last Admin: 06/24/18 09:49 Dose: 40 mg Nutritional Formula (Lactose Free) (Glucerna Shake) 120 ml PO 4X/DAY [facility] Last Admin: 06/24/18 09:48 Dose: 120 ml Nystatin (Nystatin) 500,000 unit PO Q6H [facility] Last Admin: 06/24/18 13:45 Dose: Not Given Nystatin/Triamcinolone Acetonide (Mycolog) 1 applic TOPICAL TID [facility]; Protocol Last Admin: 06/24/18 04:54 Dose: 1 applic Ondansetron HCl (Zofran) 4 mg IV Q8H PRN PRN PRN Reason: NAUSEA/VOMITING Pantoprazole Sodium (Protonix) 40 mg PO BID [facility] Last Admin: 06/24/18 09:48 Dose: 40 mg Quetiapine Fumarate (Seroquel) 25 mg PO BID [facility] Last Admin: 06/24/18 09:48 Dose: 25 mg Senna/Docusate Sodium (Senokot-S, Yanet-Colace) 2 tablet PO DAILY PRN PRN PRN Reason: CONSTIPATION Sodium Chloride () 5 - 15 ml IV UD PRN PRN Reason: SALINE FLUSH Last Admin: 06/23/18 21:52 Dose: 10 ml Sodium Chloride () 10 - 40 ml IV UD PRN PRN Reason: MULTILUMEN/HICMAN CATH FLUSH Last Admin: 06/24/18 06:17 Dose: 10 ml Code Visit Inpatient E&M: 17244 [facility] Hosp L3
[2018-06-24] MEDS: levoFLOXacin IV 500 MG/100 ML BAG 100 MG IV (09:48)
[2018-06-24] MEDS: Glucerna Shake 120 ML LIQUID PO (09:48)
[2018-06-24] MEDS: Pantoprazole Sodium 40 MG Tablet PO ×2 (09:48→21:47)
[2018-06-24] MEDS: QUEtiapine 25 MG Tablet PO ×2 (09:48→22:01)
--- NOTE | 2018-06-24 10:47 | CASEMGMT ---
DEENA SANCHEZ Note. Per interdisciplinary rounds pt remains on intermittent Bipap and dialysis. continues to have high care needs. After rounds, DEENA SANCHEZ spoke with pt and friend in room and to POFelicia Nieves via face messaging on phone. Discussed LTAC level of care, patient's current care needs and locations of LTAC. Discussed that after LTAC, they will assist with her next level of care whether home with HHS or SNF in area. Pt and POA are in agreement for LTAC. Pt does not have preference for location, but POA will discuss with her when he comes in. Questions answered. -Referral faxed to Stephania Alfonso @ [facility]. Call to verify referral received. [employer] insurance is [employer] with [facility]. Mychal ARROYON RN ACM
[2018-06-24 12:08] LABS: Pathologist Review Reviewed
[2018-06-24 12:17] LABS: Pathologist Review Reviewed
[2018-06-24] MEDS: Acetaminophen 325 MG Tablet 650 MG PO (12:30)
[2018-06-24 12:37] LABS: Partial Thromboplast Time 86.4 Seconds (24.1-36.2)
--- NOTE | 2018-06-24 13:30 | PCM.PN.REN ---
Patient Problems: Active and Suspected Problems Severe sepsis (Acute) Acute respiratory failure with hypoxia (Acute) Pneumonia (Acute) Atrial fibrillation with RVR (Acute) LYNNETTE (acute kidney injury) (Acute) Problem with dialysis access (Acute) Subjective: no new events extubated remains on nasal cannula - Physical Exam General: Alert, Oriented x3, Cooperative HEENT: Atraumatic, PERRLA, EOMI, Normocephalic Neck: Supple, No JVD, Negative Carotid Bruits Lungs: Clear to auscultation, Normal air movement Cardiovascular: Regular rate, No murmurs Abdomen: Bowel Sounds Present, Soft, Non Tender Extremities: No edema, Capillary Refill Less than 3 Seconds Skin: No rashes, No breakdown Musculoskeletal: No Tenderness to Palpation of Joints or Extremities Neurological: Cranial nerves II-XII grossly intact Psych/Mental Status: Normal Affect, Appropriate Vital Signs Temp Pulse Resp BP Pulse Ox 96.7 F L 123 H 29 H 127/70 H 92 06/24/18 12:00 06/24/18 12:00 06/24/18 12:00 06/24/18 12:00 06/24/18 12:00 Oxygen Flow Rate (L/min) 6 Oxygen Delivery Method Nasal Cannula Weight: 110.3 kg Body Mass Index (BMI) 40.4 Intake and Output for Last 24 Hours 06/22/18 06/23/18 06/24/18 23:59 23:59 23:59 Intake Total 626.5 / 626.5 1438 / 1438 253 / 253 Output Total 4022 / 4022 28 / 28 Balance -3395.5 / -3395.5 1410 / 1410 253 / 253 Laboratory Tests Past 24 Hrs 06/22/18 06/23/18 06/23/18 05:28 10:45 17:45 Diff Path Review Reviewed Reviewed APTT 63.6 H Sodium Potassium Chloride Carbon Dioxide Anion Gap BUN Creatinine Estim Creat Clear Calc Est GFR (MDRD) Af Amer Est GFR (MDRD) Non-Af BUN/Creatinine Ratio Glucose Calcium 06/23/18 06/24/18 06/24/18 23:30 04:45 04:45 Diff Path Review APTT 117.5 H* 49.1 H Sodium 138 Potassium 5.8 H Chloride 98 Carbon Dioxide 23.0 Anion Gap 17 H BUN 116 H* Creatinine 6.86 H Estim Creat Clear Calc 7.91 Est GFR (MDRD) Af Amer 8 L Est GFR (MDRD) Non-Af 7 L BUN/Creatinine Ratio 16.9 Glucose 148 H Calcium 7.9 L 06/24/18 12:10 Diff Path Review APTT 86.4 H Sodium Potassium Chloride Carbon Dioxide Anion Gap BUN Creatinine Estim Creat Clear Calc Est GFR (MDRD) Af Amer Est GFR (MDRD) Non-Af BUN/Creatinine Ratio Glucose Calcium Medical Necessity - Tobacco Use Smoking Status: Current every day smoker Tobacco Use: Cigarettes Assessment/Plan All Active Problems Severe sepsis (Acute) Acute respiratory failure with hypoxia (Acute) Pneumonia (Acute) Atrial fibrillation with RVR (Acute) LYNNETTE (acute kidney injury) (Acute) Problem with dialysis access (Acute) 1-Acute kidney injury. Most probably related to ischemic ATN Patient is currently dependent on dialysis for volume and metabolic support. Remains anuric. No recovery of kidney function. Dialysis started on June 17. HD today, seen on HD, see orders/flowsheets 2-Acute respiratory failure from community-acquired pneumonia/Influenza A infection. Patient was extubated on June 20. better now 3-bilateral pneumonia/Influenza A infection. On antibiotics as per the ICU team. Plan HD today access is RIJ TDC
--- NOTE | 2018-06-24 15:12 | NURSING ---
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 hernandez lens molder and dialysis returning blood and is going to unhook her sats 92% now. 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 dr. hurtado also notified and aware that dialysis cut short by about 30min.
[2018-06-24] MEDS: Heparin 10,000 UNITS/10 ML Vial IV (15:50)
--- NOTE | 2018-06-24 17:51 | NURSING ---
pt arrived from ICU. pt oriented to room and POC. VSS. pt states she is comfortable at this time. pt denies needs at this time. respirations even and unlabored. no s/s of distress.
[2018-06-24] MEDS: Ondansetron 4 MG/2 ML Vial IV (18:22)
[2018-06-24] MEDS: 0.9% NaCl Peripheral Flush Adult/Peds IV ×2 (18:22→22:12)
[2018-06-24 19:03] LABS: Partial Thromboplast Time 77.2 Seconds (24.1-36.2)
[2018-06-25] VITALS (37 sets, daily range): BP systolic 112–156; BP diastolic 59–91; PULSE 87–135; RESP 14–51; TEMP 36.4–37.1; O2SAT 90–96
[2018-06-25 00:44] LABS: Partial Thromboplast Time 74.3 Seconds (24.1-36.2)
[2018-06-25] MEDS: HEPARIN/D5w 25,000 UNITS 25,000 UNITS/250 ML IV.SOLN. 13 UNITS IV (02:08)
[2018-06-25 05:55] LABS: Partial Thromboplast Time 69.4 Seconds (24.1-36.2)
[2018-06-25 06:05] LABS: Absolute Lymphocyte Count 0.49 X10^3/ul (0.83-4.51); Absolute Neutrophil Count 22.5 X10^3/uL (2.0-7.7); Basophil# 0.02 X10^3/uL; Basophil% 0.1 % (0-1); Hematocrit 36.5 % (37-47); Hemoglobin 12.2 g/dl (12.0-15.0); Lymphocyte # 0.49 X10^3/ul (4.0); Mean Corp Hgb Conc 33.4 g/gl (32-36); Mean Corpuscular Hgb 28.7 pg (27.0-32.0); Mean Corpuscular Volume 85.9 fL (81-99); Mean Platelet Vol. 11.6 fl (6.2-12.0); Monocyte# 0.58 X10^3/uL; Monocyte% 2.4 % (0-10); Neutrophil # 22.49 X10^3/uL (2.7-7.7); Neutrophil % 93.5 % (47-70); Platelet Count 201 K/mm3 (150-450); RBC Distribution Width CV 15.7 % (11.6-14.6); RBC Distribution Width SD 44.9 fl (35.1-43.9); Red Blood Count 4.25 M/mm3 (4.2-5.4); White Blood Count 24.1 K/mm3 (4.4-11.0)
[2018-06-25 06:07] LABS: Differential Indicated SCAN CRITERIA MET; POSITIVE COUNT YES; POSITIVE DIFFERENTIAL YES; POSITIVE MORPHOLOGY YES
[2018-06-25] MEDS: Nystatin/Triamcin Cream Tube 1 APPLIC TOPICAL ×2 (06:34→21:00)
[2018-06-25] MEDS: Menthol/Lanolin/Calamine/Znox 113 GM Tube 1 APPLIC TOPICAL ×2 (06:34→21:00)
[2018-06-25] MEDS: 0.9% NaCl Peripheral Flush Adult/Peds IV ×2 (09:12→20:58)
[2018-06-25] MEDS: QUEtiapine 25 MG Tablet PO ×2 (09:12→21:00)
[2018-06-25] MEDS: Pantoprazole Sodium 40 MG Tablet PO ×2 (09:12→21:00)
--- NOTE | 2018-06-25 11:19 | PCM.PROGNOTE ---
Patient Problems: Active and Suspected Problems Severe sepsis (Acute) Acute respiratory failure with hypoxia (Acute) Pneumonia (Acute) Atrial fibrillation with RVR (Acute) LYNNETTE (acute kidney injury) (Acute) Problem with dialysis access (Acute) Subjective: The patient was seen and examined at the bedside this morning. Events from the last 24 hours have been reviewed. The patient is currently afebrile, hemodynamically stable and maintaining appropriate oxygen saturations on 5 L/min via nasal cannula. The patient is documented to be overall net +6.6 L for the admission. She is currently sitting in her bedside recliner. No complaints were noted. Objective: The patient's most recent lab work, culture data and imaging studies have all been personally reviewed. Respiratory viral panel was positive for influenza A. Sputum culture was positive for Streptococcus pneumonia. Surface echocardiogram dated June 17 revealed normal LV size with an ejection fraction of 40% and moderate global hypokinesis of the LV. Lower extremity Doppler studies were negative for the presence of DVTs. - Physical Exam General: Alert, No apparent distress HEENT: Atraumatic, PERRLA, Normocephalic Oral: No Gingival or Mucosal Lesions/ Ulcerations Neck: Supple, No Nodes, Trachea Midline Lungs: No rhonchi, No wheeze, No rales, Diminished Cardiovascular: Normal S1, Normal S2, Irregular Rate, Tachycardic Abdomen: Bowel Sounds Present, Soft, Non Tender, Obese Extremities: No clubbing, No cyanosis, Edema Skin: - - No significant change from previous. Musculoskeletal: No Tenderness to Palpation of Joints or Extremities, No Muscle Wasting Lymphatic: No Cervical, Supraclavicular, or Inguinal Adenopathy Neurological: Neuro grossly intact Psych/Mental Status: Normal Affect, Appropriate Vital Signs Temp Pulse Resp BP Pulse Ox 37.1 C 135 H 20 H 143/86 H 91 06/25/18 09:00 06/25/18 10:00 06/25/18 10:00 06/25/18 09:06/25/18 10:00 Oxygen Flow Rate (L/min) 5 Oxygen Delivery Method Nasal Cannula Weight: 240 lb 15.444 oz Body Mass Index (BMI) 40.4 Intake and Output for Last 24 Hours 06/23/18 06/24/18 06/25/18 23:59 23:59 23:59 Intake Total 1438 / 1438 843 / 843 600.8 / 600.8 Output Total 0 / 0 0 / 0 Balance 1410 / 1410 843 / 843 600.8 / 600.8 Laboratory Tests Past 24 Hrs 06/22/18 06/23/18 06/24/18 05:28 10:45 12:10 WBC RBC Hgb Hct MCV MCH MCHC RDW RDW Differential Plt Count MPV Immature Gran % (Auto) Neut % (Auto) Lymph % (Auto) [place] % (Auto) Eos % (Auto) Baso % (Auto) Absolute Neuts (auto) Absolute Lymphs (auto) Total Counted Diff Path Review Reviewed Reviewed APTT 86.4 H 06/24/18 06/25/18 06/25/18 18:20 00:20 05:36 WBC 24.1 H RBC 4.25 Hgb 12.2 Hct 36.5 L MCV 85.9 MCH 28.7 MCHC 33.4 RDW 15.7 H RDW Differential 44.9 H Plt Count 201 MPV 11.6 Immature Gran % (Auto) 2.000 H Neut % (Auto) 93.5 H Lymph % (Auto) 2.0 L [place] % (Auto) 2.4 Eos % (Auto) 0.0 Baso % (Auto) 0.1 Absolute Neuts (auto) 22.5 H Absolute Lymphs (auto) 0.49 L Total Counted Not Reportable Diff Path Review May foll APTT 77.2 H 74.3 H 06/25/18 05:36 WBC RBC Hgb Hct MCV MCH MCHC RDW RDW Differential Plt Count MPV Immature Gran % (Auto) Neut % (Auto) Lymph % (Auto) [place] % (Auto) Eos % (Auto) Baso % (Auto) Absolute Neuts (auto) Absolute Lymphs (auto) Total Counted Diff Path Review APTT 69.4 H Clinical Impression(s) from Imaging Studies Chest X-Ray 06/15/18 20:40 IMPRESSION: 1. Right lower lobe airspace disease. Given distinct margin along the superior border, an air-fluid level cannot be excluded. Chest CT may be warranted. 2. Mild infiltrate in the left lung base could also represent pneumonia. Electronically Signed: Alejandro Arizmendi MD at 21:01 EST , Service support , Chest X-Ray 06/16/18 03:40 IMPRESSION: NG tube and ET tube in place with the ET tube 5.3 cm above the isai. Improving consolidations in both lower nodes Electronically Signed: Kwesi Whalen MD at 4:59 EST Tel , Service support , KUB X-Ray 06/16/18 03:40 Chest X-Ray 06/16/18 07:23 IMPRESSION: There is consolidation right midlung zone left lower lobe suspicious for pneumonia. Lines as detailed above. The NG tube could be advanced 5 cm. Electronically Signed: Carline Nieto MD at 10:02 EST Tel , Service support , Chest X-Ray 06/17/18 10:39 IMPRESSION: The newly placed left internal jugular venous catheter is present. The tip is heading cephalad in the mid superior vena cava. The remainder of the examination is unchanged. Electronically Signed: Philip Arriola MD at 11:30 EST , Service support , Chest X-Ray 06/17/18 13:28 IMPRESSION: A new right-sided internal jugular venous line is placed the tip is in the superior vena cava. There is no pneumothorax. Right greater than left lower lobe opacity suspicious for pneumonia. Potentially pleural effusion and atelectasis could have this appearance. Electronically Signed: Carline Nieto MD at 15:22 EST Tel , Service support , Chest X-Ray 06/19/18 16:55 IMPRESSION: Satisfactory position of the right-sided central catheter. Otherwise, no significant change. Electronically Signed: Vidal Velasquez at 17:22 EST Tel , Service support , Medical Necessity - Tobacco Use Smoking Status: Current every day smoker Tobacco Use: Cigarettes Assessment/Plan All Active Problems Severe sepsis (Acute) Acute respiratory failure with hypoxia (Acute) Pneumonia (Acute) Atrial fibrillation with RVR (Acute) LYNNETTE (acute kidney injury) (Acute) Problem with dialysis access (Acute) RECOMMENDATIONS: 1. Continue BiPAP as needed. Wean as tolerated. 2. Continue antibiotics to complete a 10-day treatment course. 3. Continue as needed bronchodilators. 4. Transition from IV Solu-Medrol to prednisone 40 mg daily. 5. Encourage incentive spirometer use and mobilize patient as tolerated. 6. Ongoing volume optimization with hemodialysis IMPRESSIONS: 1. Septic shock with multiorgan system dysfunction secondary to severe community-acquired pneumonia Resolved at this time. The patient responded appropriately to antimicrobial therapy along with invasive mechanical ventilation. Hemodynamics remain stable. Antibiotics will be continued to complete a 10-day treatment course. 2. Acute hypoxemic and hypercarbic respiratory failure Significantly improved. Continue supportive measures and antibiotics as noted above. The patient can be weaned from BiPAP therapy with supplemental oxygen to be weaned to maintain a saturation at or above 90%. Encourage incentive spirometer use and mobilize patient as tolerated. The patient requires further volume optimization with hemodialysis. 3. Atrial fibrillation Continue current medical management per cardiology recommendations. 4. Acute kidney injury/shock liver Liver function is improved. Continue hemodialysis support per nephrology recommendations. This note was generated with [email or web address] dictation software. It may contain incorrect words, spelling, and punctuation that were not noted in checking the note before signing. DISPOSITION: As the patient has no further ICU needs, will sign off. Please call with any additional questions. Code Visit Inpatient E&M: 01106 Subs Hosp L2
--- NOTE | 2018-06-25 11:22 | PN_ITS ---
Patient Problems: Active and Suspected Problems Severe sepsis (Acute) Acute respiratory failure with hypoxia (Acute) Pneumonia (Acute) Atrial fibrillation with RVR (Acute) LYNNETTE (acute kidney injury) (Acute) Problem with dialysis access (Acute) Subjective: The patient was seen and examined at the bedside this morning. Events from the last 24 hours have been reviewed. The patient is currently afebrile, hemodynamically stable and maintaining appropriate oxygen saturations on 5 L/min via nasal cannula. The patient is documented to be overall net +6.6 L for the admission. She is currently sitting in her bedside recliner. No complaints were noted. Objective: The patient's most recent lab work, culture data and imaging studies have all been personally reviewed. Respiratory viral panel was positive for influenza A. Sputum culture was positive for Streptococcus pneumonia. Surface echocardiogram dated June 17 revealed normal LV size with an ejection fraction of 40% and moderate global hypokinesis of the LV. Lower extremity Doppler studies were negative for the presence of DVTs. - Physical Exam General: Alert, No apparent distress HEENT: Atraumatic, PERRLA, Normocephalic Oral: No Gingival or Mucosal Lesions/ Ulcerations Neck: Supple, No Nodes, Trachea Midline Lungs: No rhonchi, No wheeze, No rales, Diminished Cardiovascular: Normal S1, Normal S2, Irregular Rate, Tachycardic Abdomen: Bowel Sounds Present, Soft, Non Tender, Obese Extremities: No clubbing, No cyanosis, Edema Skin: - - No significant change from previous. Musculoskeletal: No Tenderness to Palpation of Joints or Extremities, No Muscle Wasting Lymphatic: No Cervical, Supraclavicular, or Inguinal Adenopathy Neurological: Neuro grossly intact Psych/Mental Status: Normal Affect, Appropriate Vital Signs Temp Pulse Resp BP Pulse Ox 37.1 C 135 H 20 H 143/86 H 91 06/25/18 09:00 06/25/18 10:00 06/25/18 10:00 06/25/18 09:06/25/18 10:00 Oxygen Flow Rate (L/min) 5 Oxygen Delivery Method Nasal Cannula Weight: 240 lb 15.444 oz Body Mass Index (BMI) 40.4 Intake and Output for Last 24 Hours 06/23/18 06/24/18 06/25/18 23:59 23:59 23:59 Intake Total 1438 / 1438 843 / 843 600.8 / 600.8 Output Total 0 / 0 0 / 0 Balance 1410 / 1410 843 / 843 600.8 / 600.8 Laboratory Tests Past 24 Hrs 06/22/18 06/23/18 06/24/18 05:28 10:45 12:10 WBC RBC Hgb Hct MCV MCH MCHC RDW RDW Differential Plt Count MPV Immature Gran % (Auto) Neut % (Auto) Lymph % (Auto) Carbon % (Auto) Eos % (Auto) Baso % (Auto) Absolute Neuts (auto) Absolute Lymphs (auto) Total Counted Diff Path Review Reviewed Reviewed APTT 86.4 H 06/24/18 06/25/18 06/25/18 18:20 00:20 05:36 WBC 24.1 H RBC 4.25 Hgb 12.2 Hct 36.5 L MCV 85.9 MCH 28.7 MCHC 33.4 RDW 15.7 H RDW Differential 44.9 H Plt Count 201 MPV 11.6 Immature Gran % (Auto) 2.000 H Neut % (Auto) 93.5 H Lymph % (Auto) 2.0 L Carbon % (Auto) 2.4 Eos % (Auto) 0.0 Baso % (Auto) 0.1 Absolute Neuts (auto) 22.5 H Absolute Lymphs (auto) 0.49 L Total Counted Not Reportable Diff Path Review May foll APTT 77.2 H 74.3 H 06/25/18 05:36 WBC RBC Hgb Hct MCV MCH MCHC RDW RDW Differential Plt Count MPV Immature Gran % (Auto) Neut % (Auto) Lymph % (Auto) Carbon % (Auto) Eos % (Auto) Baso % (Auto) Absolute Neuts (auto) Absolute Lymphs (auto) Total Counted Diff Path Review APTT 69.4 H Clinical Impression(s) from Imaging Studies Chest X-Ray 06/15/18 20:40 IMPRESSION: 1. Right lower lobe airspace disease. Given distinct margin along the superior border, an air-fluid level cannot be excluded. Chest CT may be warranted. 2. Mild infiltrate in the left lung base could also represent pneumonia. Electronically Signed: Alejandro Arizmendi MD at 21:01 EST , Service support , Chest X-Ray 06/16/18 03:40 IMPRESSION: NG tube and ET tube in place with the ET tube 5.3 cm above the isai. Improving consolidations in both lower nodes Electronically Signed: Kwesi Whalen MD at 4:59 EST Tel , Service support , KUB X-Ray 06/16/18 03:40 Chest X-Ray 06/16/18 07:23 IMPRESSION: There is consolidation right midlung zone left lower lobe suspicious for pneumonia. Lines as detailed above. The NG tube could be advanced 5 cm. Electronically Signed: Carline Nieto MD at 10:02 EST Tel , Service support , Chest X-Ray 06/17/18 10:39 IMPRESSION: The newly placed left internal jugular venous catheter is present. The tip is heading cephalad in the mid superior vena cava. The remainder of the examination is unchanged. Electronically Signed: Philip Arriola MD at 11:30 EST , Service support , Chest X-Ray 06/17/18 13:28 IMPRESSION: A new right-sided internal jugular venous line is placed the tip is in the superior vena cava. There is no pneumothorax. Right greater than left lower lobe opacity suspicious for pneumonia. Potentially pleural effusion and atelectasis could have this appearance. Electronically Signed: Carline Nieto MD at 15:22 EST Tel , Service support , Chest X-Ray 06/19/18 16:55 IMPRESSION: Satisfactory position of the right-sided central catheter. Otherwise, no significant change. Electronically Signed: Vidal Velasquez at 17:22 EST Tel , Service support , Medical Necessity - Tobacco Use Smoking Status: Current every day smoker Tobacco Use: Cigarettes Assessment/Plan All Active Problems Severe sepsis (Acute) Acute respiratory failure with hypoxia (Acute) Pneumonia (Acute) Atrial fibrillation with RVR (Acute) LYNNETTE (acute kidney injury) (Acute) Problem with dialysis access (Acute) RECOMMENDATIONS: 1. Continue BiPAP as needed. Wean as tolerated. 2. Continue antibiotics to complete a 10-day treatment course. 3. Continue as needed bronchodilators. 4. Transition from IV Solu-Medrol to prednisone 40 mg daily. 5. Encourage incentive spirometer use and mobilize patient as tolerated. 6. Ongoing volume optimization with hemodialysis IMPRESSIONS: 1. Septic shock with multiorgan system dysfunction secondary to severe community-acquired pneumonia Resolved at this time. The patient responded appropriately to antimicrobial therapy along with invasive mechanical ventilation. Hemodynamics remain stable. Antibiotics will be continued to complete a 10-day treatment course. 2. Acute hypoxemic and hypercarbic respiratory failure Significantly improved. Continue supportive measures and antibiotics as noted above. The patient can be weaned from BiPAP therapy with supplemental oxygen to be weaned to maintain a saturation at or above 90%. Encourage incentive spirometer use and mobilize patient as tolerated. The patient requires further volume optimization with hemodialysis. 3. Atrial fibrillation Continue current medical management per cardiology recommendations. 4. Acute kidney injury/shock liver Liver function is improved. Continue hemodialysis support per nephrology recommendations. This note was generated with [employer] dictation software. It may contain incorrect words, spelling, and punctuation that were not noted in checking the note before signing. DISPOSITION: As the patient has no further ICU needs, will sign off. Please call with any additional questions. Code Visit Inpatient E&M: 48621 Subs Hosp L2
--- NOTE | 2018-06-25 13:41 | PCM.PN.HOSP ---
Patient Problems: Active and Suspected Problems Severe sepsis (Acute) Acute respiratory failure with hypoxia (Acute) Pneumonia (Acute) Atrial fibrillation with RVR (Acute) LYNNETTE (acute kidney injury) (Acute) Problem with dialysis access (Acute) Subjective: Patient is on BiPAP and intermittent high flow oxygen. Pulse ox 95% on 5 L of oxygen. Mild tachycardia, irregular heartbeat. On IV heparin, Cardizem and amiodarone. Vitals/I&O's: Vital Signs Temp Pulse Resp BP Pulse Ox 98.7 F 104 H 18 112/59 L 90 06/25/18 09:00 06/25/18 13:00 06/25/18 13:00 06/25/18 13:00 06/25/18 13:00 Oxygen Flow Rate (L/min) 5 Oxygen Delivery Method Nasal Cannula Weight: 240 lb 15.444 oz Body Mass Index (BMI) 40.4 Intake and Output for Last 24 Hours 06/23/18 06/24/18 06/25/18 23:59 23:59 23:59 Intake Total 1438 / 1438 843 / 843 600.8 / 600.8 Output Total 28 / 28 0 / 0 0 / 0 Balance 1410 / 1410 843 / 843 600.8 / 600.8 General: Alert, Oriented x3, Cooperative HEENT: Atraumatic, PERRLA, EOMI, Normocephalic Neck: Supple, No JVD, Negative Carotid Bruits, - - Left IJ central line, nontender. No hematoma. Lungs: Diminished, Rhonchi, Short of Breath, - - On BiPAP support/high flow oxygen Cardiovascular: Regular rate, No murmurs Abdomen: Bowel Sounds Present, Soft, Non Tender, Non-Distended, - - Anuria. Robertsno catheter was taken out. on hemodialysis Extremities: Capillary Refill Less than 3 Seconds, Edema Skin: No rashes, No breakdown Musculoskeletal: No Tenderness to Palpation of Joints or Extremities, Arthritic Changes Neurological: Cranial nerves II-XII grossly intact, Neuro grossly intact Psych/Mental Status: Normal Affect, Appropriate Laboratory Results 06/24/18 18:20: APTT 77.2 H 06/25/18 00:20: APTT 74.3 H 06/25/18 05:36: WBC 24.1 H, RBC 4.25, Hgb 12.2, Hct 36.5 L, MCV 85.9, MCH 28.7, MCHC 33.4, RDW 15.7 H, RDW Differential 44.9 H, Plt Count 201, MPV 11.6, Immature Gran % (Auto) 2.000 H, Neut % (Auto) 93.5 H, Lymph % (Auto) 2.0 L, Bullock % (Auto) 2.4, Eos % (Auto) 0.0, Baso % (Auto) 0.1, Absolute Neuts (auto) 22.5 H, Absolute Lymphs (auto) 0.49 L, Total Counted Not Reportable, Diff Path Review August06/25/18 05:36: APTT 69.4 H Current Medications Acetaminophen (Tylenol) 650 mg PO Q6H PRN PRN PRN Reason: PAIN Last Admin: 06/24/18 12:30 Dose: 650 mg Albuterol Sulfate (Ventolin Aerosols) 2.5 mg INHALATION Q2H PRN PRN PRN Reason: SHORTNESS OF BREATH Calamine/Phenol (Calmoseptine Ointment) 1 applic TOPICAL TID DYLAN; Protocol Last Admin: 06/25/18 06:34 Dose: 1 applicatio Fentanyl Citrate (Sublimaze (100mcg Ampule)) 25 mcg IV Q2H PRN PRN PRN Reason: PAIN Last Admin: 06/24/18 00:37 Dose: 25 mcg Heparin Sodium (Porcine) (Heparin Na) 0 unit IV UD PRN; Protocol Last Admin: 06/24/18 06:15 Dose: 1,000 unit Sodium Chloride () 250 mls @ 15 mls/hr IV .[id number] PRN PRN Reason: SALINE FLUSH Last Admin: 06/17/18 21:17 Dose: 15 mls/hr Diltiazem HCl 125 mg/ Dextrose 125 mls @ 15 mls/hr IV .[id number] DYLAN Last Admin: 06/25/18 09:27 Dose: 15 mls/hr Heparin Sodium/Dextrose () 25,000 units in 250 mls @ 15 mls/hr IV .[id number] DYLAN; Protocol Last Admin: 06/25/18 02:08 Dose: 13 mls/hr Amiodarone HCl 360 mg/ (Dextrose) 200 mls @ 16.67 mls/hr CONT INF .Q12H DYLAN Last Admin: 06/25/18 06:28 Dose: 16.67 mls/hr Ipratropium Hixson (Atrovent) 0.5 mg INHALATION Q4H.RT PRN PRN Reason: SOB &/OR WHEEZING Methylprednisolone (Solu-Medrol) 40 mg IV Q12 [facility] Last Admin: 06/25/18 09:12 Dose: 40 mg Nutritional Formula (Lactose Free) (Glucerna Shake) 120 ml PO 4X/DAY [facility] Last Admin: 06/25/18 09:31 Dose: Not Given Nystatin (Nystatin) 500,000 unit PO Q6H [facility] Last Admin: 06/25/18 12:15 Dose: Not Given Nystatin/Triamcinolone Acetonide (Mycolog) 1 applic TOPICAL TID [facility]; Protocol Last Admin: 06/25/18 06:34 Dose: 1 applic Ondansetron HCl (Zofran) 4 mg IV Q8H PRN PRN PRN Reason: NAUSEA/VOMITING Last Admin: 06/24/18 18:22 Dose: 4 mg Pantoprazole Sodium (Protonix) 40 mg PO BID [facility] Last Admin: 06/25/18 09:12 Dose: 40 mg Quetiapine Fumarate (Seroquel) 25 mg PO BID [facility] Last Admin: 06/25/18 09:12 Dose: 25 mg Senna/Docusate Sodium (Senokot-S, Yanet-Colace) 2 tablet PO DAILY PRN PRN PRN Reason: CONSTIPATION Sodium Chloride () 5 - 15 ml IV UD PRN PRN Reason: SALINE FLUSH Last Admin: 06/25/18 09:12 Dose: 10 ml Sodium Chloride () 10 - 40 ml IV UD PRN PRN Reason: MULTILUMEN/HICMAN CATH FLUSH Last Admin: 06/24/18 06:17 Dose: 10 ml Medical Necessity - Tobacco Use Smoking Status: Current every day smoker Tobacco Use: Cigarettes Assessment/Plan All Active Problems Severe sepsis (Acute) Acute respiratory failure with hypoxia (Acute) Pneumonia (Acute) Atrial fibrillation with RVR (Acute) LYNNETTE (acute kidney injury) (Acute) Problem with dialysis access (Acute) This is a 58 years old female patient who is being admitted to ICU from ER because of shortness of breath, cough and fever, found to have multilobar community-acquired pneumonia complicated by septic shock and her hospital course complicated by cardiac arrest status post CPR, A. fib with RVR, acute renal failure requiring hemodialysis as well as elevated LFTs secondary to shock liver. On 06/22, she went back into A. fib with RVR, received 1 dose of IV amiodarone and now on IV Cardizem drip. #1 septic shock with multiorgan failure secondary to severe community-acquired pneumonia status post cardiac arrest: Blood pressure is maintained, remained in A. fib with RVR, uncontrolled. She has been afebrile. She is on IV Levaquin and IV steroids. Sputum culture revealed Streptococcus pneumoniae. Blood cultures showed no growth in 48 hours. Urine culture showed no growth. Respiratory panel for viruses came back positive for influenza A. Plan to continue same treatment. #2 new onset A. fib with RVR/indeterminate troponin: She is on fixed rate of IV Cardizem and IV amiodarone drip; heart rate is better in 116 but fluctuates. Blood pressure is maintained. Troponin is indeterminate, no acute ischemic changes on EKG. 2D echocardiogram revealed ejection fraction of 40%, mild to moderate global hypokinesis of the left ventricle. Cardiology on the case. #3 acute streptococcal multilobar community-acquired pneumonia: Remained on IV Levaquin. Sputum culture revealed Streptococcus pneumoniae. Blood culture showed no growth in 48 hours. Urine cultures negative. Plan to continue same treatment #4 status post cardiac arrest x2: Attributed to new onset A. fib with RVR that is likely precipitated by pneumonia. Her troponin are minimally elevated. EKG revealed no acute ischemic changes. Echocardiogram reviewed as above. At this time, no evidence of acute CHF. #5 acute hypoxic and hypercapnic respiratory failure: Secondary to pneumonia. Status post extubation, remains on BiPAP continuously, nursing staff reported desaturation without BiPAP. #6 acute renal failure/mild hyperkalemia: Patient is still has minimal urine output about 20 mL. On 06/22 for liter of fluid was removed by hemodialysis. K is 5.8. BUN 116, creatinine 6.86. Plan for dialysis as per Nephrology recommendation. #7 shock liver: Secondary to septic shock. Liver transaminases as well as total bilirubin continued to improve. Alk phos is normal. Monitor LFT #8 DVT prophylaxis: SCDs. Active Medications Acetaminophen (Tylenol) 650 mg PO Q6H PRN PRN PRN Reason: PAIN Last Admin: 06/24/18 12:30 Dose: 650 mg Albuterol Sulfate (Ventolin Aerosols) 2.5 mg INHALATION Q2H PRN PRN PRN Reason: SHORTNESS OF BREATH Calamine/Phenol (Calmoseptine Ointment) 1 applic TOPICAL TID [facility]; Protocol Last Admin: 06/25/18 06:34 Dose: 1 applicatio Fentanyl Citrate (Sublimaze (100mcg Ampule)) 25 mcg IV Q2H PRN PRN PRN Reason: PAIN Last Admin: 06/24/18 00:37 Dose: 25 mcg Heparin Sodium (Porcine) (Heparin Na) 0 unit IV UD PRN; Protocol Last Admin: 06/24/18 06:15 Dose: 1,000 unit Sodium Chloride () 250 mls @ 15 mls/hr IV .[id number] PRN PRN Reason: SALINE FLUSH Last Admin: 06/17/18 21:17 Dose: 15 mls/hr Diltiazem HCl 125 mg/ Dextrose 125 mls @ 15 mls/hr IV .[id number] [facility] Last Admin: 06/25/18 09:27 Dose: 15 mls/hr Heparin Sodium/Dextrose () 25,000 units in 250 mls @ 15 mls/hr IV .[id number] [facility]; Protocol Last Admin: 06/25/18 02:08 Dose: 13 mls/hr Amiodarone HCl 360 mg/ (Dextrose) 200 mls @ 16.67 mls/hr CONT INF .Q12H [facility] Last Admin: 06/25/18 06:28 Dose: 16.67 mls/hr Ipratropium Hixson (Atrovent) 0.5 mg INHALATION Q4H.RT PRN PRN Reason: SOB &/OR WHEEZING Methylprednisolone (Solu-Medrol) 40 mg IV Q12 [facility] Last Admin: 06/25/18 09:12 Dose: 40 mg Nutritional Formula (Lactose Free) (Glucerna Shake) 120 ml PO 4X/DAY [facility] Last Admin: 06/25/18 09:31 Dose: Not Given Nystatin (Nystatin) 500,000 unit PO Q6H [facility] Last Admin: 06/25/18 12:15 Dose: Not Given Nystatin/Triamcinolone Acetonide (Mycolog) 1 applic TOPICAL TID [facility]; Protocol Last Admin: 06/25/18 06:34 Dose: 1 applic Ondansetron HCl (Zofran) 4 mg IV Q8H PRN PRN PRN Reason: NAUSEA/VOMITING Last Admin: 06/24/18 18:22 Dose: 4 mg Pantoprazole Sodium (Protonix) 40 mg PO BID [facility] Last Admin: 06/25/18 09:12 Dose: 40 mg Quetiapine Fumarate (Seroquel) 25 mg PO BID [facility] Last Admin: 06/25/18 09:12 Dose: 25 mg Senna/Docusate Sodium (Senokot-S, Yanet-Colace) 2 tablet PO DAILY PRN PRN PRN Reason: CONSTIPATION Sodium Chloride () 5 - 15 ml IV UD PRN PRN Reason: SALINE FLUSH Last Admin: 06/25/18 09:12 Dose: 10 ml Sodium Chloride () 10 - 40 ml IV UD PRN PRN Reason: MULTILUMEN/HICMAN CATH FLUSH Last Admin: 06/24/18 06:17 Dose: 10 ml Code Visit Inpatient E&M: 53582 Subs Hosp L3
--- NOTE | 2018-06-25 13:45 | PN_ITS ---
Patient Problems: Active and Suspected Problems Severe sepsis (Acute) Acute respiratory failure with hypoxia (Acute) Pneumonia (Acute) Atrial fibrillation with RVR (Acute) LYNNETTE (acute kidney injury) (Acute) Problem with dialysis access (Acute) Subjective: Patient is on BiPAP and intermittent high flow oxygen. Pulse ox 95% on 5 L of oxygen. Mild tachycardia, irregular heartbeat. On IV heparin, Cardizem and amiodarone. Vitals/I&O's: Vital Signs Temp Pulse Resp BP Pulse Ox 98.7 F 104 H 18 112/59 L 90 06/25/18 09:00 06/25/18 13:00 06/25/18 13:00 06/25/18 13:00 06/25/18 13:00 Oxygen Flow Rate (L/min) 5 Oxygen Delivery Method Nasal Cannula Weight: 240 lb 15.444 oz Body Mass Index (BMI) 40.4 Intake and Output for Last 24 Hours 06/23/18 06/24/18 06/25/18 23:59 23:59 23:59 Intake Total 1438 / 1438 843 / 843 600.8 / 600.8 Output Total 28 / 28 0 / 0 0 / 0 Balance 1410 / 1410 843 / 843 600.8 / 600.8 General: Alert, Oriented x3, Cooperative HEENT: Atraumatic, PERRLA, EOMI, Normocephalic Neck: Supple, No JVD, Negative Carotid Bruits, - - Left IJ central line, nontender. No hematoma. Lungs: Diminished, Rhonchi, Short of Breath, - - On BiPAP support/high flow oxygen Cardiovascular: Regular rate, No murmurs Abdomen: Bowel Sounds Present, Soft, Non Tender, Non-Distended, - - Anuria. Robertson catheter was taken out. on hemodialysis Extremities: Capillary Refill Less than 3 Seconds, Edema Skin: No rashes, No breakdown Musculoskeletal: No Tenderness to Palpation of Joints or Extremities, Arthritic Changes Neurological: Cranial nerves II-XII grossly intact, Neuro grossly intact Psych/Mental Status: Normal Affect, Appropriate Laboratory Results 06/24/18 18:20: APTT 77.2 H 06/25/18 00:20: APTT 74.3 H 06/25/18 05:36: WBC 24.1 H, RBC 4.25, Hgb 12.2, Hct 36.5 L, MCV 85.9, MCH 28.7, MCHC 33.4, RDW 15.7 H, RDW Differential 44.9 H, Plt Count 201, MPV 11.6, Immature Gran % (Auto) 2.000 H, Neut % (Auto) 93.5 H, Lymph % (Auto) 2.0 L, [place] % (Auto) 2.4, Eos % (Auto) 0.0, Baso % (Auto) 0.1, Absolute Neuts (auto) 22.5 H, Absolute Lymphs (auto) 0.49 L, Total Counted Not Reportable, Diff Path Review August06/25/18 05:36: APTT 69.4 H Current Medications Acetaminophen (Tylenol) 650 mg PO Q6H PRN PRN PRN Reason: PAIN Last Admin: 06/24/18 12:30 Dose: 650 mg Albuterol Sulfate (Ventolin Aerosols) 2.5 mg INHALATION Q2H PRN PRN PRN Reason: SHORTNESS OF BREATH Calamine/Phenol (Calmoseptine Ointment) 1 applic TOPICAL TID DYLAN; Protocol Last Admin: 06/25/18 06:34 Dose: 1 applicatio Fentanyl Citrate (Sublimaze (100mcg Ampule)) 25 mcg IV Q2H PRN PRN PRN Reason: PAIN Last Admin: 06/24/18 00:37 Dose: 25 mcg Heparin Sodium (Porcine) (Heparin Na) 0 unit IV UD PRN; Protocol Last Admin: 06/24/18 06:15 Dose: 1,000 unit Sodium Chloride () 250 mls @ 15 mls/hr IV .[id number] PRN PRN Reason: SALINE FLUSH Last Admin: 06/17/18 21:17 Dose: 15 mls/hr Diltiazem HCl 125 mg/ Dextrose 125 mls @ 15 mls/hr IV .[id number] DYLAN Last Admin: 06/25/18 09:27 Dose: 15 mls/hr Heparin Sodium/Dextrose () 25,000 units in 250 mls @ 15 mls/hr IV .[id number] DYLAN; Protocol Last Admin: 06/25/18 02:08 Dose: 13 mls/hr Amiodarone HCl 360 mg/ (Dextrose) 200 mls @ 16.67 mls/hr CONT INF .Q12H DYLAN Last Admin: 06/25/18 06:28 Dose: 16.67 mls/hr Ipratropium [place] (Atrovent) 0.5 mg INHALATION Q4H.RT PRN PRN Reason: SOB &/OR WHEEZING Methylprednisolone (Solu-Medrol) 40 mg IV Q12 [facility] Last Admin: 06/25/18 09:12 Dose: 40 mg Nutritional Formula (Lactose Free) (Glucerna Shake) 120 ml PO 4X/DAY [facility] Last Admin: 06/25/18 09:31 Dose: Not Given Nystatin (Nystatin) 500,000 unit PO Q6H [facility] Last Admin: 06/25/18 12:15 Dose: Not Given Nystatin/Triamcinolone Acetonide (Mycolog) 1 applic TOPICAL TID [facility]; Protocol Last Admin: 06/25/18 06:34 Dose: 1 applic Ondansetron HCl (Zofran) 4 mg IV Q8H PRN PRN PRN Reason: NAUSEA/VOMITING Last Admin: 06/24/18 18:22 Dose: 4 mg Pantoprazole Sodium (Protonix) 40 mg PO BID [facility] Last Admin: 06/25/18 09:12 Dose: 40 mg Quetiapine Fumarate (Seroquel) 25 mg PO BID [facility] Last Admin: 06/25/18 09:12 Dose: 25 mg Senna/Docusate Sodium (Senokot-S, Yanet-Colace) 2 tablet PO DAILY PRN PRN PRN Reason: CONSTIPATION Sodium Chloride () 5 - 15 ml IV UD PRN PRN Reason: SALINE FLUSH Last Admin: 06/25/18 09:12 Dose: 10 ml Sodium Chloride () 10 - 40 ml IV UD PRN PRN Reason: MULTILUMEN/HICMAN CATH FLUSH Last Admin: 06/24/18 06:17 Dose: 10 ml Medical Necessity - Tobacco Use Smoking Status: Current every day smoker Tobacco Use: Cigarettes Assessment/Plan All Active Problems Severe sepsis (Acute) Acute respiratory failure with hypoxia (Acute) Pneumonia (Acute) Atrial fibrillation with RVR (Acute) LYNNETTE (acute kidney injury) (Acute) Problem with dialysis access (Acute) This is a 58 years old female patient who is being admitted to ICU from ER because of shortness of breath, cough and fever, found to have multilobar community-acquired pneumonia complicated by septic shock and her hospital course complicated by cardiac arrest status post CPR, A. fib with RVR, acute renal failure requiring hemodialysis as well as elevated LFTs secondary to shock liver. On 06/22, she went back into A. fib with RVR, received 1 dose of IV amiodarone and now on IV Cardizem drip. #1 septic shock with multiorgan failure secondary to severe community-acquired pneumonia status post cardiac arrest: Blood pressure is maintained, remained in A. fib with RVR, uncontrolled. She has been afebrile. She is on IV Levaquin and IV steroids. Sputum culture revealed Streptococcus pneumoniae. Blood cultures showed no growth in 48 hours. Urine culture showed no growth. Respiratory panel for viruses came back positive for influenza A. Plan to continue same treatment. #2 new onset A. fib with RVR/indeterminate troponin: She is on fixed rate of IV Cardizem and IV amiodarone drip; heart rate is better in 116 but fluctuates. Blood pressure is maintained. Troponin is indeterminate, no acute ischemic changes on EKG. 2D echocardiogram revealed ejection fraction of 40%, mild to moderate global hypokinesis of the left ventricle. Cardiology on the case. #3 acute streptococcal multilobar community-acquired pneumonia: Remained on IV Levaquin. Sputum culture revealed Streptococcus pneumoniae. Blood culture showed no growth in 48 hours. Urine cultures negative. Plan to continue same treatment #4 status post cardiac arrest x2: Attributed to new onset A. fib with RVR that is likely precipitated by pneumonia. Her troponin are minimally elevated. EKG revealed no acute ischemic changes. Echocardiogram reviewed as above. At this time, no evidence of acute CHF. #5 acute hypoxic and hypercapnic respiratory failure: Secondary to pneumonia. Status post extubation, remains on BiPAP continuously, nursing staff reported desaturation without BiPAP. #6 acute renal failure/mild hyperkalemia: Patient is still has minimal urine output about 20 mL. On 06/22 for liter of fluid was removed by hemodialysis. K is 5.8. BUN 116, creatinine 6.86. Plan for dialysis as per Nephrology recommendation. #7 shock liver: Secondary to septic shock. Liver transaminases as well as total bilirubin continued to improve. Alk phos is normal. Monitor LFT #8 DVT prophylaxis: SCDs. Active Medications Acetaminophen (Tylenol) 650 mg PO Q6H PRN PRN PRN Reason: PAIN Last Admin: 06/24/18 12:30 Dose: 650 mg Albuterol Sulfate (Ventolin Aerosols) 2.5 mg INHALATION Q2H PRN PRN PRN Reason: SHORTNESS OF BREATH Calamine/Phenol (Calmoseptine Ointment) 1 applic TOPICAL TID [facility]; Protocol Last Admin: 06/25/18 06:34 Dose: 1 applicatio Fentanyl Citrate (Sublimaze (100mcg Ampule)) 25 mcg IV Q2H PRN PRN PRN Reason: PAIN Last Admin: 06/24/18 00:37 Dose: 25 mcg Heparin Sodium (Porcine) (Heparin Na) 0 unit IV UD PRN; Protocol Last Admin: 06/24/18 06:15 Dose: 1,000 unit Sodium Chloride () 250 mls @ 15 mls/hr IV .[id number] PRN PRN Reason: SALINE FLUSH Last Admin: 06/17/18 21:17 Dose: 15 mls/hr Diltiazem HCl 125 mg/ Dextrose 125 mls @ 15 mls/hr IV .Q8H20M [facility] Last Admin: 06/25/18 09:27 Dose: 15 mls/hr Heparin Sodium/Dextrose () 25,000 units in 250 mls @ 15 mls/hr IV .[id number] [facility]; Protocol Last Admin: 06/25/18 02:08 Dose: 13 mls/hr Amiodarone HCl 360 mg/ (Dextrose) 200 mls @ 16.67 mls/hr CONT INF .Q12H [facility] Last Admin: 06/25/18 06:28 Dose: 16.67 mls/hr Ipratropium [place] (Atrovent) 0.5 mg INHALATION Q4H.RT PRN PRN Reason: SOB &/OR WHEEZING Methylprednisolone (Solu-Medrol) 40 mg IV Q12 [facility] Last Admin: 06/25/18 09:12 Dose: 40 mg Nutritional Formula (Lactose Free) (Glucerna Shake) 120 ml PO 4X/DAY [facility] Last Admin: 06/25/18 09:31 Dose: Not Given Nystatin (Nystatin) 500,000 unit PO Q6H [facility] Last Admin: 06/25/18 12:15 Dose: Not Given Nystatin/Triamcinolone Acetonide (Mycolog) 1 applic TOPICAL TID [facility]; Protocol Last Admin: 06/25/18 06:34 Dose: 1 applic Ondansetron HCl (Zofran) 4 mg IV Q8H PRN PRN PRN Reason: NAUSEA/VOMITING Last Admin: 06/24/18 18:22 Dose: 4 mg Pantoprazole Sodium (Protonix) 40 mg PO BID [facility] Last Admin: 06/25/18 09:12 Dose: 40 mg Quetiapine Fumarate (Seroquel) 25 mg PO BID [facility] Last Admin: 06/25/18 09:12 Dose: 25 mg Senna/Docusate Sodium (Senokot-S, Yanet-Colace) 2 tablet PO DAILY PRN PRN PRN Reason: CONSTIPATION Sodium Chloride () 5 - 15 ml IV UD PRN PRN Reason: SALINE FLUSH Last Admin: 06/25/18 09:12 Dose: 10 ml Sodium Chloride () 10 - 40 ml IV UD PRN PRN Reason: MULTILUMEN/HICMAN CATH FLUSH Last Admin: 06/24/18 06:17 Dose: 10 ml Code Visit Inpatient E&M: 83873 Subs Hosp L3
--- NOTE | 2018-06-25 14:57 | PCM.PN.REN ---
Patient Problems: Active and Suspected Problems Severe sepsis (Acute) Acute respiratory failure with hypoxia (Acute) Pneumonia (Acute) Atrial fibrillation with RVR (Acute) LYNNETTE (acute kidney injury) (Acute) Problem with dialysis access (Acute) Subjective: no new events - Physical Exam General: Alert, Oriented x3, Cooperative HEENT: Atraumatic, PERRLA, EOMI, Normocephalic Neck: Supple, No JVD, Negative Carotid Bruits Lungs: Clear to auscultation, Normal air movement Cardiovascular: Regular rate, No murmurs Abdomen: Bowel Sounds Present, Soft, Non Tender Extremities: No edema, Capillary Refill Less than 3 Seconds Skin: No rashes, No breakdown Musculoskeletal: No Tenderness to Palpation of Joints or Extremities Neurological: Cranial nerves II-XII grossly intact Psych/Mental Status: Normal Affect, Appropriate Vital Signs Temp Pulse Resp BP Pulse Ox 98.7 F 90 20 H 138/77 H 92 06/25/18 09:00 06/25/18 14:00 06/25/18 14:00 06/25/18 14:00 06/25/18 14:00 Oxygen Flow Rate (L/min) 5 Oxygen Delivery Method Room Air Weight: 109.3 kg Body Mass Index (BMI) 40.4 Intake and Output for Last 24 Hours 06/23/18 06/24/18 06/25/18 23:59 23:59 23:59 Intake Total 1438 / 1438 843 / 843 840.8 / 840.8 Output Total 28 / 28 0 / 0 0 / 0 Balance 1410 / 1410 843 / 843 840.8 / 840.8 Laboratory Tests Past 24 Hrs 06/24/18 06/25/18 06/25/18 18:20 00:20 04:45 WBC RBC Hgb Hct MCV MCH MCHC RDW RDW Differential Plt Count MPV Immature Gran % (Auto) Neut % (Auto) Lymph % (Auto) [place] % (Auto) Eos % (Auto) Baso % (Auto) Absolute Neuts (auto) Absolute Lymphs (auto) Total Counted Diff Path Review APTT 77.2 H 74.3 H Total Bilirubin Pending Direct Bilirubin Pending AST Pending ALT Pending Alkaline Phosphatase Pending Total Protein Pending Albumin Pending 06/25/18 06/25/18 05:36 05:36 WBC 24.1 H RBC 4.25 Hgb 12.2 Hct 36.5 L MCV 85.9 MCH 28.7 MCHC 33.4 RDW 15.7 H RDW Differential 44.9 H Plt Count 201 MPV 11.6 Immature Gran % (Auto) 2.000 H Neut % (Auto) 93.5 H Lymph % (Auto) 2.0 L [place] % (Auto) 2.4 Eos % (Auto) 0.0 Baso % (Auto) 0.1 Absolute Neuts (auto) 22.5 H Absolute Lymphs (auto) 0.49 L Total Counted Not Reportable Diff Path Review August APTT 69.4 H Total Bilirubin Direct Bilirubin AST ALT Alkaline Phosphatase Total Protein Albumin Medical Necessity - Tobacco Use Smoking Status: Current every day smoker Tobacco Use: Cigarettes Assessment/Plan All Active Problems Severe sepsis (Acute) Acute respiratory failure with hypoxia (Acute) Pneumonia (Acute) Atrial fibrillation with RVR (Acute) LYNNETTE (acute kidney injury) (Acute) Problem with dialysis access (Acute) 1-Acute kidney injury. Most probably related to ischemic ATN Patient is currently dependent on dialysis for volume and metabolic support. Remains anuric. No recovery of kidney function. Dialysis started on June 17. HD tomorrow as per schedule 2-Acute respiratory failure from community-acquired pneumonia/Influenza A infection. Patient was extubated on June 20. better now 3-bilateral pneumonia/Influenza A infection. On antibiotics as per the ICU team.
[2018-06-25 15:03] LABS: AST(SGOT) 90 U/L (15-37); Alanine Aminotransfer ALT/SGPT 115 U/L (13-56); Albumin, Serum 2.4 g/dL (3.2-5.0); Alkaline Phosphatase 126 U/L (45-117); Bilirubin, Direct 6.05 mg/dL (0.00-0.30); Globulin 3.5 g/dL (2.2-4.2); Protein, Total 5.9 g/dL (6.4-8.2)
[2018-06-25] MEDS: Acetaminophen 325 MG Tablet 650 MG PO (21:05)
[2018-06-25] MEDS: HEPARIN/D5w 25,000 UNITS 25,000 UNITS/250 ML IV.SOLN. 15 UNITS IV (23:55)
[2018-06-26] VITALS (44 sets, daily range): BP systolic 104–141; BP diastolic 52–88; PULSE 75–146; RESP 14–28; TEMP 36.4–37.2; O2SAT 32–98
[2018-06-26] MEDS: Acetaminophen 325 MG Tablet 650 MG PO (04:33)
[2018-06-26 05:59] LABS: Partial Thromboplast Time 62.8 Seconds (24.1-36.2)
[2018-06-26] MEDS: Nystatin/Triamcin Cream Tube 1 APPLIC TOPICAL ×3 (06:24→21:31)
[2018-06-26] MEDS: Menthol/Lanolin/Calamine/Znox 113 GM Tube 1 APPLIC TOPICAL ×3 (06:24→21:31)
[2018-06-26 06:35] LABS: Absolute Lymphocyte Count 0.47 X10^3/ul (0.83-4.51); Absolute Neutrophil Count 22.2 X10^3/uL (2.0-7.7); Basophil# 0.03 X10^3/uL; Basophil% 0.1 % (0-1); Hematocrit 34.1 % (37-47); Hemoglobin 11.5 g/dl (12.0-15.0); Lymphocyte # 0.47 X10^3/ul (4.0); Mean Corp Hgb Conc 33.7 g/gl (32-36); Mean Corpuscular Hgb 28.8 pg (27.0-32.0); Mean Corpuscular Volume 85.5 fL (81-99); Mean Platelet Vol. 12.3 fl (6.2-12.0); Monocyte# 0.84 X10^3/uL; Monocyte% 3.5 % (0-10); Neutrophil # 22.16 X10^3/uL (2.7-7.7); Neutrophil % 92.3 % (47-70); Platelet Count 183 K/mm3 (150-450); RBC Distribution Width CV 15.8 % (11.6-14.6); RBC Distribution Width SD 45.1 fl (35.1-43.9); Red Blood Count 3.99 M/mm3 (4.2-5.4)
[2018-06-26 06:45] LABS: Differential Indicated SCAN CRITERIA MET; POSITIVE COUNT YES; POSITIVE DIFFERENTIAL YES; POSITIVE MORPHOLOGY YES
[2018-06-26 07:07] LABS: Anion Gap 18 (5-15); BUN 116 mg/dL (7-18); BUN/Creat Ratio 17.6 RATIO (10-20); Calcium,Total 7.7 mg/dL (8.5-10.1); Chloride 94 mmol/L (98-107); Creatinine, Serum 6.59 mg/dL (0.55-1.02); EST Glomerular Filtration Rate 7 mL/min (>60); Est Glom Filt Rate - Afr Amer 8 mL/min (>60); Estimated Creatinine Clearance 8.23 ml/min; Glucose 142 mg/dL (74-106); Potassium 6.4 mmol/L (3.5-5.1); Sodium Level 134 mmol/L (136-145)
--- NOTE | 2018-06-26 08:31 | PN.CARD_ITS ---
Subjectve: Patient seen and evaluated. Appears to be stable at this time. Taking some p.o. meds. Still remains on BiPAP. Objective: Vital Signs Temp Pulse Resp BP Pulse Ox 97.8 F 88 24 H 135/65 H 95 06/26/18 05:00 06/26/18 08:00 06/26/18 07:00 06/26/18 08:00 06/26/18 08:00 Oxygen Flow Rate (L/min) 4 Oxygen Delivery Method Bi-pap Weight: 243 lb 6.245 oz Body Mass Index (BMI) 40.4 Intake and Output for Last 24 Hours 06/24/18 06/25/18 06/26/18 23:59 23:59 23:59 Intake Total 843 / 843 1479.8 / 1479.8 754.7 / 754.7 Output Total 0 / 0 0 / 0 0 / 0 Balance 843 / 843 1479.8 / 1479.8 754.7 / 754.7 General: Awake, Alert, Oriented x 3, Ill Appearing HEENT: PERRL, EOMI, Sclera Non Icteric Neck: Supple, Good ROM, No Lymph Node Enlargement Lungs: Clear to auscultation Cardiovascular: Regular Rhythm, Normal S1, Normal S2, No Murmurs, No Rubs, No Gallops Vascular: No Carotid Bruits, Normal Femoral Pulses, Normal Radial Pulses, Normal Dorsalis Pedal Pulse, Normal Posterior Tibial Pulses Abdomen: Bowel Sounds Present, Soft, Non Tender, No HSM, No Organomegaly, Obese Extremities: No Cyanosis, No Clubbing, No edema Neurological: No Focal Motor or Sensory Deficit Psych/Mental Status: Appropriate 06/25/18 04:45: Total Bilirubin 8.00 H, Direct Bilirubin 6.05 H 06/26/18 05:28: WBC 24.0 H, RBC 3.99 L, Hgb 11.5 L, Hct 34.1 L, MCV 85.5, MCH 28.8, MCHC 33.7, RDW 15.8 H, RDW Differential 45.1 H, Plt Count 183, MPV 12.3 H, Immature Gran % (Auto) 2.100 H, Neut % (Auto) 92.3 H, Lymph % (Auto) 2.0 L, [place] % (Auto) 3.5, Eos % (Auto) 0.0, Baso % (Auto) 0.1, Absolute Neuts (auto) 22.2 H, Total Counted Not Reportable 06/26/18 05:28: Sodium 134 L, Potassium 6.4 H*, Chloride 94 L, Carbon Dioxide 22.0, Anion Gap 18 H, BUN 116 H*, Creatinine 6.59 H, Est GFR (MDRD) Af Amer 8 L, Est GFR (MDRD) Non-Af 7 L, BUN/Creatinine Ratio 17.6, Glucose 142 H, Calcium 7.7 L 06/26/18 05:28: APTT 62.8 H Rhythm: EKG: ECHO: Stress Test: Cardiac Cath: PCI: CT Surgery: Holter monitor: EPS: PPM: CXR: Chest CT Scan: Medical Necessity - Tobacco Use Smoking Status: Current every day smoker Tobacco Use: Cigarettes Assessment/Plan 1. Atrial fibrillation * Patient presented with atrial fibrillation likely secondary to her lung condition. . * Echocardiogram done demonstrated mild to moderately globally reduced left ventricular systolic function. * I do not think that long-term anticoagulation is warranted at this time. We will switch over to Eliquis * I do not have any plans at this time for DC cardioversion however. We will DC IV Cardizem and place her on p.o. beta-moris. 2. Cardiopulmonary arrest * I suspect the above is on the basis of severe hypoxia as well as the bradycardia arrhythmia secondary to the beta-moris that the patient was receiving. * That appears to have resolved and currently patient is on supportive management with three-vasoactive agents. We will try and titrate to maintain a mean arterial pressure of 65 mmHg. 3. Lung consolidation * I suspect the above is on the basis of an infection and not a pulmonary embolism with pulmonary infarction. * * 4. Abnormal cardiac enzymes * Above is likely secondary to demand ischemia. * No further workup at this time 5. Acute renal insufficiency * The above is likely secondary to her septic state, hypotension and poor perfusion likely on an underlying baseline renal dysfunction. * Will continue with dialysis * We will continue to follow with you peripherally. * * Above discussed with hospitalist and nursing staff.
[2018-06-26 10:19] LABS: Pathologist Review Reviewed
--- NOTE | 2018-06-26 11:17 | PCM.PN.REN ---
Patient Problems: Active and Suspected Problems Severe sepsis (Acute) Acute respiratory failure with hypoxia (Acute) Pneumonia (Acute) Atrial fibrillation with RVR (Acute) LYNNETTE (acute kidney injury) (Acute) Problem with dialysis access (Acute) Subjective: no new events - Physical Exam General: Alert, Oriented x3, Cooperative HEENT: Atraumatic, PERRLA, EOMI, Normocephalic Neck: Supple, No JVD, Negative Carotid Bruits Lungs: Clear to auscultation, Normal air movement Cardiovascular: Regular rate, No murmurs Abdomen: Bowel Sounds Present, Soft, Non Tender Extremities: No edema, Capillary Refill Less than 3 Seconds Skin: No rashes, No breakdown Musculoskeletal: No Tenderness to Palpation of Joints or Extremities Neurological: Cranial nerves II-XII grossly intact Psych/Mental Status: Normal Affect, Appropriate Vital Signs Temp Pulse Resp BP Pulse Ox 97.8 F 128 H 18 132/76 H 95 06/26/18 05:00 06/26/18 11:05 06/26/18 09:00 06/26/18 10:00 06/26/18 10:00 Oxygen Flow Rate (L/min) 4 Oxygen Delivery Method Bi-pap Weight: 110.4 kg Body Mass Index (BMI) 40.4 Intake and Output for Last 24 Hours 06/24/18 06/25/18 06/26/18 23:59 23:59 23:59 Intake Total 843 / 843 1479.8 / 1479.8 754.7 / 754.7 Output Total 0 / 0 0 / 0 0 / 0 Balance 843 / 843 1479.8 / 1479.8 754.7 / 754.7 Laboratory Tests Past 24 Hrs 06/25/18 06/25/18 06/26/18 04:45 05:36 05:28 WBC 24.0 H RBC 3.99 L Hgb 11.5 L Hct 34.1 L MCV 85.5 MCH 28.8 MCHC 33.7 RDW 15.8 H RDW Differential 45.1 H Plt Count 183 MPV 12.3 H Immature Gran % (Auto) 2.100 H Neut % (Auto) 92.3 H Lymph % (Auto) 2.0 L [place] % (Auto) 3.5 Eos % (Auto) 0.0 Baso % (Auto) 0.1 Absolute Neuts (auto) 22.2 H Absolute Lymphs (auto) 0.47 L Total Counted Not Reportable Diff Path Review Reviewed August foll APTT Sodium Potassium Chloride Carbon Dioxide Anion Gap BUN Creatinine Estim Creat Clear Calc Est GFR (MDRD) Af Amer Est GFR (MDRD) Non-Af BUN/Creatinine Ratio Glucose Calcium Total Bilirubin 8.00 H Direct Bilirubin 6.05 H AST 90 H ALT 115 H Alkaline Phosphatase 126 H Total Protein 5.9 L Albumin 2.4 L Globulin 3.5 06/26/18 06/26/18 05:28 05:28 WBC RBC Hgb Hct MCV MCH MCHC RDW RDW Differential Plt Count MPV Immature Gran % (Auto) Neut % (Auto) Lymph % (Auto) [place] % (Auto) Eos % (Auto) Baso % (Auto) Absolute Neuts (auto) Absolute Lymphs (auto) Total Counted Diff Path Review APTT 62.8 H Sodium 134 L Potassium 6.4 H* Chloride 94 L Carbon Dioxide 22.0 Anion Gap 18 H BUN 116 H* Creatinine 6.59 H Estim Creat Clear Calc 8.23 Est GFR (MDRD) Af Amer 8 L Est GFR (MDRD) Non-Af 7 L BUN/Creatinine Ratio 17.6 Glucose 142 H Calcium 7.7 L Total Bilirubin Direct Bilirubin AST ALT Alkaline Phosphatase Total Protein Albumin Globulin Medical Necessity - Tobacco Use Smoking Status: Current every day smoker Tobacco Use: Cigarettes Assessment/Plan All Active Problems Severe sepsis (Acute) Acute respiratory failure with hypoxia (Acute) Pneumonia (Acute) Atrial fibrillation with RVR (Acute) LYNNETTE (acute kidney injury) (Acute) Problem with dialysis access (Acute) 1-Acute kidney injury. Most probably related to ischemic ATN Patient is currently dependent on dialysis for volume and metabolic support. Remains anuric. No recovery of kidney function. Dialysis started on June 17. HD today. see orders/flowsheets 2-Acute respiratory failure from community-acquired pneumonia/Influenza A infection. Patient was extubated on June 20. better now 3-bilateral pneumonia/Influenza A infection. On antibiotics as per the ICU team.
[2018-06-26] MEDS: APIXABAN 2.5 MG TABLET PO ×2 (12:26→21:32)
[2018-06-26] MEDS: Metoprolol Tartrate 50 MG Tablet PO ×2 (12:26→21:32)
[2018-06-26] MEDS: Pantoprazole Sodium 40 MG Tablet PO ×2 (12:26→21:32)
[2018-06-26] MEDS: Amiodarone 200 MG Tablet PO ×2 (12:26→21:32)
[2018-06-26] MEDS: QUEtiapine 25 MG Tablet PO ×2 (12:26→21:32)
--- NOTE | 2018-06-26 13:58 | PCM.PN.HOSP ---
Patient Problems: Active and Suspected Problems Severe sepsis (Acute) Acute respiratory failure with hypoxia (Acute) Pneumonia (Acute) Atrial fibrillation with RVR (Acute) LYNNETTE (acute kidney injury) (Acute) Problem with dialysis access (Acute) Subjective: Patient is undergoing dialysis. No fever or chills. Heart rate is irregular. Discussed with the outside cutter and junior qa analyst. IV heparin changed to Eliquis. IV Cardizem and amiodarone drip discontinued and started on metoprolol and amiodarone oral tablets. Vitals/I&O's: Vital Signs Temp Pulse Resp BP Pulse Ox 97.8 F 134 H 20 H 116/52 L 93 06/26/18 11:00 06/26/18 13:00 06/26/18 13:00 06/26/18 13:00 06/26/18 13:00 Oxygen Flow Rate (L/min) 5 Oxygen Delivery Method Nasal Cannula Weight: 243 lb 6.245 oz Body Mass Index (BMI) 40.4 Intake and Output for Last 24 Hours 06/24/18 06/25/18 06/26/18 23:59 23:59 23:59 Intake Total 843 / 843 1479.8 / 1479.8 814.7 / 814.7 Output Total 0 / 0 0 / 0 0 / 0 Balance 843 / 843 1479.8 / 1479.8 814.7 / 814.7 General: Alert, Oriented x3, Cooperative HEENT: Atraumatic, PERRLA, EOMI, Normocephalic Neck: Supple, No JVD, Negative Carotid Bruits Lungs: Diminished, Short of Breath, Tachypneic, Using Accessory Muscles Cardiovascular: Normal S1, Normal S2, No murmurs, Irregular Rate, No Gallop, Tachycardic Abdomen: Bowel Sounds Present, Soft, Non Tender, Non-Distended, - - Anuria. On hemodialysis Extremities: Capillary Refill Less than 3 Seconds, Edema Skin: No rashes, No breakdown Musculoskeletal: No Tenderness to Palpation of Joints or Extremities, Arthritic Changes, Muscle Wasting Neurological: Cranial nerves II-XII grossly intact Psych/Mental Status: Normal Affect, Appropriate Laboratory Results 06/25/18 04:45: Total Bilirubin 8.00 H, Direct Bilirubin 6.05 H, AST 90 H, ALT 115 H, Alkaline Phosphatase 126 H, Total Protein 5.9 L, Albumin 2.4 L, Globulin 3.5 06/25/18 05:36: Diff Path Review Reviewed 06/26/18 05:28: WBC 24.0 H, RBC 3.99 L, Hgb 11.5 L, Hct 34.1 L, MCV 85.5, MCH 28.8, MCHC 33.7, RDW 15.8 H, RDW Differential 45.1 H, Plt Count 183, MPV 12.3 H, Immature Gran % (Auto) 2.100 H, Neut % (Auto) 92.3 H, Lymph % (Auto) 2.0 L, [place] % (Auto) 3.5, Eos % (Auto) 0.0, Baso % (Auto) 0.1, Absolute Neuts (auto) 22.2 H, Absolute Lymphs (auto) 0.47 L, Total Counted Not Reportable, Diff Path Review May foll 06/26/18 05:28: Sodium 134 L, Potassium 6.4 H*, Chloride 94 L, Carbon Dioxide 22.0, Anion Gap 18 H, BUN 116 H*, Creatinine 6.59 H, Estim Creat Clear Calc 8.23, Est GFR (MDRD) Af Amer 8 L, Est GFR (MDRD) Non-Af 7 L, BUN/Creatinine Ratio 17.6, Glucose 142 H, Calcium 7.7 L 06/26/18 05:28: APTT 62.8 H Current Medications Acetaminophen (Tylenol) 650 mg PO Q6H PRN PRN PRN Reason: PAIN Last Admin: 06/26/18 04:33 Dose: 650 mg Albuterol Sulfate (Ventolin Aerosols) 2.5 mg INHALATION Q2H PRN PRN PRN Reason: SHORTNESS OF BREATH Amiodarone HCl (Cordarone) 200 mg PO BID [facility] Last Admin: 06/26/18 12:26 Dose: 200 mg Apixaban (Eliquis) 2.5 mg PO BID [facility] Last Admin: 06/26/18 12:26 Dose: 2.5 mg Calamine/Phenol (Calmoseptine Ointment) 1 applic TOPICAL TID [facility]; Protocol Last Admin: 06/26/18 12:27 Dose: 1 applicatio Fentanyl Citrate (Sublimaze (100mcg Ampule)) 25 mcg IV Q2H PRN PRN PRN Reason: PAIN Last Admin: 06/24/18 00:37 Dose: 25 mcg Sodium Chloride () 250 mls @ 15 mls/hr IV .[id number] PRN PRN Reason: SALINE FLUSH Last Admin: 06/17/18 21:17 Dose: 15 mls/hr Ipratropium [place] (Atrovent) 0.5 mg INHALATION Q4H.RT PRN PRN Reason: SOB &/OR WHEEZING Methylprednisolone (Solu-Medrol) 40 mg IV Q12 [facility] Last Admin: 06/26/18 12:26 Dose: 40 mg Metoprolol Tartrate (Lopressor (Beta Princess)) 50 mg PO BID [facility] Last Admin: 06/26/18 12:26 Dose: 50 mg Nystatin (Nystatin) 500,000 unit PO Q6H [facility] Last Admin: 06/26/18 12:27 Dose: Not Given Nystatin/Triamcinolone Acetonide (Mycolog) 1 applic TOPICAL TID [facility]; Protocol Last Admin: 06/26/18 12:27 Dose: 1 applic Ondansetron HCl (Zofran) 4 mg IV Q8H PRN PRN PRN Reason: NAUSEA/VOMITING Last Admin: 06/24/18 18:22 Dose: 4 mg Pantoprazole Sodium (Protonix) 40 mg PO BID [facility] Last Admin: 06/26/18 12:26 Dose: 40 mg Quetiapine Fumarate (Seroquel) 25 mg PO BID [facility] Last Admin: 06/26/18 12:26 Dose: 25 mg Senna/Docusate Sodium (Senokot-S, Yanet-Colace) 2 tablet PO DAILY PRN PRN PRN Reason: CONSTIPATION Sodium Chloride () 5 - 15 ml IV UD PRN PRN Reason: SALINE FLUSH Last Admin: 06/25/18 20:58 Dose: 10 ml Sodium Chloride () 10 - 40 ml IV UD PRN PRN Reason: MULTILUMEN/HICMAN CATH FLUSH Last Admin: 06/24/18 06:17 Dose: 10 ml Medical Necessity - Tobacco Use Smoking Status: Current every day smoker Tobacco Use: Cigarettes Assessment/Plan All Active Problems Severe sepsis (Acute) Acute respiratory failure with hypoxia (Acute) Pneumonia (Acute) Atrial fibrillation with RVR (Acute) LYNNETTE (acute kidney injury) (Acute) Problem with dialysis access (Acute) This is a 58 years old female patient who is being admitted to ICU from ER because of shortness of breath, cough and fever, found to have multilobar community-acquired pneumonia complicated by septic shock and her hospital course complicated by cardiac arrest status post CPR, A. fib with RVR, acute renal failure requiring hemodialysis as well as elevated LFTs secondary to shock liver. On 06/22, she went back into A. fib with RVR, received 1 dose of IV amiodarone and now on IV Cardizem drip. #1 septic shock with multiorgan failure secondary to severe community-acquired pneumonia status post cardiac arrest: Blood pressure is maintained, remained in A. fib with RVR, uncontrolled. She has been afebrile. She is on IV steroids. Sputum culture revealed Streptococcus pneumoniae. Blood cultures showed no growth in 48 hours. Urine culture showed no growth. Respiratory panel for viruses came back positive for influenza A. Plan to continue same treatment. #2 new onset A. fib with RVR/indeterminate troponin: IV Cardizem and IV amiodarone drip discontinued; heart rate still 40%, mild to moderate global hypokinesis of the left ventricle. Cardiology on the case. No plan for cardiac catheter or invasive procedure. No plan for DC cardioversion. #3 acute streptococcal multilobar community-acquired pneumonia: Completed his Levaquin on 06/24/2018. Sputum culture revealed Streptococcus pneumoniae. Blood culture showed no growth in 48 hours. Urine cultures negative. #4 status post cardiac arrest x2: Attributed to new onset A. fib with RVR that is likely precipitated by pneumonia. Her troponin are minimally elevated. EKG revealed no acute ischemic changes. Echocardiogram reviewed as above. At this time, no evidence of acute CHF. #5 acute hypoxic and hypercapnic respiratory failure: Secondary to pneumonia. Status post extubation, remains on BiPAP continuously, nursing staff reported desaturation without BiPAP. #6 acute renal failure/mild hyperkalemia from ATN; hemodialysis dependent: Patient is still has minimal urine output about 20 mL. On dialysis which seems to be permanent. Plan for dialysis as per Nephrology recommendation. #7 shock liver: Secondary to septic shock. Liver transaminases as well as total bilirubin continued to improve. Alk phos is normal. AST and ALT have improved. Albumin 2.4. Alkaline phosphatase 126. Total bilirubin 8.0. Direct bilirubin 6.05. Right upper quadrant sonogram ordered. Patient liver enzymes profile follow shock liver as transaminases have improved and total bili of increased but expected to stabilize and decrease. #8 DVT prophylaxis: SCDs. Laboratory Results 06/25/18 04:45: Total Bilirubin 8.00 H, Direct Bilirubin 6.05 H, AST 90 H, ALT 115 H, Alkaline Phosphatase 126 H, Total Protein 5.9 L, Albumin 2.4 L, Globulin 3.5 06/25/18 05:36: Diff Path Review Reviewed 06/26/18 05:28: WBC 24.0 H, RBC 3.99 L, Hgb 11.5 L, Hct 34.1 L, MCV 85.5, MCH 28.8, MCHC 33.7, RDW 15.8 H, RDW Differential 45.1 H, Plt Count 183, MPV 12.3 H, Immature Gran % (Auto) 2.100 H, Neut % (Auto) 92.3 H, Lymph % (Auto) 2.0 L, [place] % (Auto) 3.5, Eos % (Auto) 0.0, Baso % (Auto) 0.1, Absolute Neuts (auto) 22.2 H, Absolute Lymphs (auto) 0.47 L, Total Counted Not Reportable, Diff Path Review May foll 06/26/18 05:28: Sodium 134 L, Potassium 6.4 H*, Chloride 94 L, Carbon Dioxide 22.0, Anion Gap 18 H, BUN 116 H*, Creatinine 6.59 H, Estim Creat Clear Calc 8.23, Est GFR (MDRD) Af Amer 8 L, Est GFR (MDRD) Non-Af 7 L, BUN/Creatinine Ratio 17.6, Glucose 142 H, Calcium 7.7 L 06/26/18 05:28: APTT 62.8 H Active Medications Acetaminophen (Tylenol) 650 mg PO Q6H PRN PRN PRN Reason: PAIN Last Admin: 06/26/18 04:33 Dose: 650 mg Albuterol Sulfate (Ventolin Aerosols) 2.5 mg INHALATION Q2H PRN PRN PRN Reason: SHORTNESS OF BREATH Amiodarone HCl (Cordarone) 200 mg PO BID [facility] Last Admin: 06/26/18 12:26 Dose: 200 mg Apixaban (Eliquis) 2.5 mg PO BID [facility] Last Admin: 06/26/18 12:26 Dose: 2.5 mg Calamine/Phenol (Calmoseptine Ointment) 1 applic TOPICAL TID [facility]; Protocol Last Admin: 06/26/18 12:27 Dose: 1 applicatio Fentanyl Citrate (Sublimaze (100mcg Ampule)) 25 mcg IV Q2H PRN PRN PRN Reason: PAIN Last Admin: 06/24/18 00:37 Dose: 25 mcg Sodium Chloride () 250 mls @ 15 mls/hr IV .[id number] PRN PRN Reason: SALINE FLUSH Last Admin: 06/17/18 21:17 Dose: 15 mls/hr Ipratropium [place] (Atrovent) 0.5 mg INHALATION Q4H.RT PRN PRN Reason: SOB &/OR WHEEZING Methylprednisolone (Solu-Medrol) 40 mg IV Q12 [facility] Last Admin: 06/26/18 12:26 Dose: 40 mg Metoprolol Tartrate (Lopressor (Beta Princess)) 50 mg PO BID [facility] Last Admin: 06/26/18 12:26 Dose: 50 mg Nystatin (Nystatin) 500,000 unit PO Q6H [facility] Last Admin: 06/26/18 12:27 Dose: Not Given Nystatin/Triamcinolone Acetonide (Mycolog) 1 applic TOPICAL TID [facility]; Protocol Last Admin: 06/26/18 12:27 Dose: 1 applic Ondansetron HCl (Zofran) 4 mg IV Q8H PRN PRN PRN Reason: NAUSEA/VOMITING Last Admin: 06/24/18 18:22 Dose: 4 mg Pantoprazole Sodium (Protonix) 40 mg PO BID [facility] Last Admin: 06/26/18 12:26 Dose: 40 mg Quetiapine Fumarate (Seroquel) 25 mg PO BID [facility] Last Admin: 06/26/18 12:26 Dose: 25 mg Senna/Docusate Sodium (Senokot-S, Yanet-Colace) 2 tablet PO DAILY PRN PRN PRN Reason: CONSTIPATION Sodium Chloride () 5 - 15 ml IV UD PRN PRN Reason: SALINE FLUSH Last Admin: 06/25/18 20:58 Dose: 10 ml Sodium Chloride () 10 - 40 ml IV UD PRN PRN Reason: MULTILUMEN/HICMAN CATH FLUSH Last Admin: 06/24/18 06:17 Dose: 10 ml Code Visit Inpatient E&M: [id number] [facility] Hosp L3
--- NOTE | 2018-06-26 14:09 | PN_ITS ---
Patient Problems: Active and Suspected Problems Severe sepsis (Acute) Acute respiratory failure with hypoxia (Acute) Pneumonia (Acute) Atrial fibrillation with RVR (Acute) LYNNETTE (acute kidney injury) (Acute) Problem with dialysis access (Acute) Subjective: Patient is undergoing dialysis. No fever or chills. Heart rate is irregular. Discussed with the hearing care practitioner and glass fitter. IV heparin changed to Eliquis. IV Cardizem and amiodarone drip discontinued and started on metoprolol and amiodarone oral tablets. Vitals/I&O's: Vital Signs Temp Pulse Resp BP Pulse Ox 97.8 F 134 H 20 H 116/52 L 93 06/26/18 11:00 06/26/18 13:00 06/26/18 13:00 06/26/18 13:00 06/26/18 13:00 Oxygen Flow Rate (L/min) 5 Oxygen Delivery Method Nasal Cannula Weight: 243 lb 6.245 oz Body Mass Index (BMI) 40.4 Intake and Output for Last 24 Hours 06/24/18 06/25/18 06/26/18 23:59 23:59 23:59 Intake Total 843 / 843 1479.8 / 1479.8 814.7 / 814.7 Output Total 0 / 0 0 / 0 0 / 0 Balance 843 / 843 1479.8 / 1479.8 814.7 / 814.7 General: Alert, Oriented x3, Cooperative HEENT: Atraumatic, PERRLA, EOMI, Normocephalic Neck: Supple, No JVD, Negative Carotid Bruits Lungs: Diminished, Short of Breath, Tachypneic, Using Accessory Muscles Cardiovascular: Normal S1, Normal S2, No murmurs, Irregular Rate, No Gallop, Tachycardic Abdomen: Bowel Sounds Present, Soft, Non Tender, Non-Distended, - - Anuria. On hemodialysis Extremities: Capillary Refill Less than 3 Seconds, Edema Skin: No rashes, No breakdown Musculoskeletal: No Tenderness to Palpation of Joints or Extremities, Arthritic Changes, Muscle Wasting Neurological: Cranial nerves II-XII grossly intact Psych/Mental Status: Normal Affect, Appropriate Laboratory Results 06/25/18 04:45: Total Bilirubin 8.00 H, Direct Bilirubin 6.05 H, AST 90 H, ALT 115 H, Alkaline Phosphatase 126 H, Total Protein 5.9 L, Albumin 2.4 L, Globulin 3.5 06/25/18 05:36: Diff Path Review Reviewed 06/26/18 05:28: WBC 24.0 H, RBC 3.99 L, Hgb 11.5 L, Hct 34.1 L, MCV 85.5, MCH 28.8, MCHC 33.7, RDW 15.8 H, RDW Differential 45.1 H, Plt Count 183, MPV 12.3 H, Immature Gran % (Auto) 2.100 H, Neut % (Auto) 92.3 H, Lymph % (Auto) 2.0 L, [place] % (Auto) 3.5, Eos % (Auto) 0.0, Baso % (Auto) 0.1, Absolute Neuts (auto) 22.2 H, Absolute Lymphs (auto) 0.47 L, Total Counted Not Reportable, Diff Path Review May foll 06/26/18 05:28: Sodium 134 L, Potassium 6.4 H*, Chloride 94 L, Carbon Dioxide 22.0, Anion Gap 18 H, BUN 116 H*, Creatinine 6.59 H, Estim Creat Clear Calc 8.23, Est GFR (MDRD) Af Amer 8 L, Est GFR (MDRD) Non-Af 7 L, BUN/Creatinine Ratio 17.6, Glucose 142 H, Calcium 7.7 L 06/26/18 05:28: APTT 62.8 H Current Medications Acetaminophen (Tylenol) 650 mg PO Q6H PRN PRN PRN Reason: PAIN Last Admin: 06/26/18 04:33 Dose: 650 mg Albuterol Sulfate (Ventolin Aerosols) 2.5 mg INHALATION Q2H PRN PRN PRN Reason: SHORTNESS OF BREATH Amiodarone HCl (Cordarone) 200 mg PO BID [facility] Last Admin: 06/26/18 12:26 Dose: 200 mg Apixaban (Eliquis) 2.5 mg PO BID [facility] Last Admin: 06/26/18 12:26 Dose: 2.5 mg Calamine/Phenol (Calmoseptine Ointment) 1 applic TOPICAL TID [facility]; Protocol Last Admin: 06/26/18 12:27 Dose: 1 applicatio Fentanyl Citrate (Sublimaze (100mcg Ampule)) 25 mcg IV Q2H PRN PRN PRN Reason: PAIN Last Admin: 06/24/18 00:37 Dose: 25 mcg Sodium Chloride () 250 mls @ 15 mls/hr IV .[id number] PRN PRN Reason: SALINE FLUSH Last Admin: 06/17/18 21:17 Dose: 15 mls/hr Ipratropium [place] (Atrovent) 0.5 mg INHALATION Q4H.RT PRN PRN Reason: SOB &/OR WHEEZING Methylprednisolone (Solu-Medrol) 40 mg IV Q12 [facility] Last Admin: 06/26/18 12:26 Dose: 40 mg Metoprolol Tartrate (Lopressor (Beta Princess)) 50 mg PO BID [facility] Last Admin: 06/26/18 12:26 Dose: 50 mg Nystatin (Nystatin) 500,000 unit PO Q6H [facility] Last Admin: 06/26/18 12:27 Dose: Not Given Nystatin/Triamcinolone Acetonide (Mycolog) 1 applic TOPICAL TID [facility]; Protocol Last Admin: 06/26/18 12:27 Dose: 1 applic Ondansetron HCl (Zofran) 4 mg IV Q8H PRN PRN PRN Reason: NAUSEA/VOMITING Last Admin: 06/24/18 18:22 Dose: 4 mg Pantoprazole Sodium (Protonix) 40 mg PO BID [facility] Last Admin: 06/26/18 12:26 Dose: 40 mg Quetiapine Fumarate (Seroquel) 25 mg PO BID [facility] Last Admin: 06/26/18 12:26 Dose: 25 mg Senna/Docusate Sodium (Senokot-S, Yanet-Colace) 2 tablet PO DAILY PRN PRN PRN Reason: CONSTIPATION Sodium Chloride () 5 - 15 ml IV UD PRN PRN Reason: SALINE FLUSH Last Admin: 06/25/18 20:58 Dose: 10 ml Sodium Chloride () 10 - 40 ml IV UD PRN PRN Reason: MULTILUMEN/HICMAN CATH FLUSH Last Admin: 06/24/18 06:17 Dose: 10 ml Medical Necessity - Tobacco Use Smoking Status: Current every day smoker Tobacco Use: Cigarettes Assessment/Plan All Active Problems Severe sepsis (Acute) Acute respiratory failure with hypoxia (Acute) Pneumonia (Acute) Atrial fibrillation with RVR (Acute) LYNNETTE (acute kidney injury) (Acute) Problem with dialysis access (Acute) This is a 58 years old female patient who is being admitted to ICU from ER because of shortness of breath, cough and fever, found to have multilobar community-acquired pneumonia complicated by septic shock and her hospital course complicated by cardiac arrest status post CPR, A. fib with RVR, acute renal failure requiring hemodialysis as well as elevated LFTs secondary to shock liver. On 06/22, she went back into A. fib with RVR, received 1 dose of IV amiodarone and now on IV Cardizem drip. #1 septic shock with multiorgan failure secondary to severe community-acquired pneumonia status post cardiac arrest: Blood pressure is maintained, remained in A. fib with RVR, uncontrolled. She has been afebrile. She is on IV steroids. Sputum culture revealed Streptococcus pneumoniae. Blood cultures showed no growth in 48 hours. Urine culture showed no growth. Respiratory panel for viruses came back positive for influenza A. Plan to continue same treatment. #2 new onset A. fib with RVR/indeterminate troponin: IV Cardizem and IV amiodarone drip discontinued; heart rate still 40%, mild to moderate global hypokinesis of the left ventricle. Cardiology on the case. No plan for cardiac catheter or invasive procedure. No plan for DC cardioversion. #3 acute streptococcal multilobar community-acquired pneumonia: Completed his Levaquin on 06/24/2018. Sputum culture revealed Streptococcus pneumoniae. Blood culture showed no growth in 48 hours. Urine cultures negative. #4 status post cardiac arrest x2: Attributed to new onset A. fib with RVR that is likely precipitated by pneumonia. Her troponin are minimally elevated. EKG revealed no acute ischemic changes. Echocardiogram reviewed as above. At this time, no evidence of acute CHF. #5 acute hypoxic and hypercapnic respiratory failure: Secondary to pneumonia. Status post extubation, remains on BiPAP continuously, nursing staff reported desaturation without BiPAP. #6 acute renal failure/mild hyperkalemia from ATN; hemodialysis dependent: Patient is still has minimal urine output about 20 mL. On dialysis which seems to be permanent. Plan for dialysis as per Nephrology recommendation. #7 shock liver: Secondary to septic shock. Liver transaminases as well as total bilirubin continued to improve. Alk phos is normal. AST and ALT have improved. Albumin 2.4. Alkaline phosphatase 126. Total bilirubin 8.0. Direct bilirubin 6.05. Right upper quadrant sonogram ordered. Patient liver enzymes profile follow shock liver as transaminases have improved and total bili of increased but expected to stabilize and decrease. #8 DVT prophylaxis: SCDs. Laboratory Results 06/25/18 04:45: Total Bilirubin 8.00 H, Direct Bilirubin 6.05 H, AST 90 H, ALT 115 H, Alkaline Phosphatase 126 H, Total Protein 5.9 L, Albumin 2.4 L, Globulin 3.5 06/25/18 05:36: Diff Path Review Reviewed 06/26/18 05:28: WBC 24.0 H, RBC 3.99 L, Hgb 11.5 L, Hct 34.1 L, MCV 85.5, MCH 28.8, MCHC 33.7, RDW 15.8 H, RDW Differential 45.1 H, Plt Count 183, MPV 12.3 H, Immature Gran % (Auto) 2.100 H, Neut % (Auto) 92.3 H, Lymph % (Auto) 2.0 L, [place] % (Auto) 3.5, Eos % (Auto) 0.0, Baso % (Auto) 0.1, Absolute Neuts (auto) 22.2 H, Absolute Lymphs (auto) 0.47 L, Total Counted Not Reportable, Diff Path Review May foll 06/26/18 05:28: Sodium 134 L, Potassium 6.4 H*, Chloride 94 L, Carbon Dioxide 22.0, Anion Gap 18 H, BUN 116 H*, Creatinine 6.59 H, Estim Creat Clear Calc 8.23, Est GFR (MDRD) Af Amer 8 L, Est GFR (MDRD) Non-Af 7 L, BUN/Creatinine Rati o 17.6, Glucose 142 H, Calcium 7.7 L 06/26/18 05:28: APTT 62.8 H Active Medications Acetaminophen (Tylenol) 650 mg PO Q6H PRN PRN PRN Reason: PAIN Last Admin: 06/26/18 04:33 Dose: 650 mg Albuterol Sulfate (Ventolin Aerosols) 2.5 mg INHALATION Q2H PRN PRN PRN Reason: SHORTNESS OF BREATH Amiodarone HCl (Cordarone) 200 mg PO BID [facility] Last Admin: 06/26/18 12:26 Dose: 200 mg Apixaban (Eliquis) 2.5 mg PO BID [facility] Last Admin: 06/26/18 12:26 Dose: 2.5 mg Calamine/Phenol (Calmoseptine Ointment) 1 applic TOPICAL TID [facility]; Protocol Last Admin: 06/26/18 12:27 Dose: 1 applicatio Fentanyl Citrate (Sublimaze (100mcg Ampule)) 25 mcg IV Q2H PRN PRN PRN Reason: PAIN Last Admin: 06/24/18 00:37 Dose: 25 mcg Sodium Chloride () 250 mls @ 15 mls/hr IV .[id number] PRN PRN Reason: SALINE FLUSH Last Admin: 06/17/18 21:17 Dose: 15 mls/hr Ipratropium [place] (Atrovent) 0.5 mg INHALATION Q4H.RT PRN PRN Reason: SOB &/OR WHEEZING Methylprednisolone (Solu-Medrol) 40 mg IV Q12 [facility] Last Admin: 06/26/18 12:26 Dose: 40 mg Metoprolol Tartrate (Lopressor (Beta Princess)) 50 mg PO BID [facility] Last Admin: 06/26/18 12:26 Dose: 50 mg Nystatin (Nystatin) 500,000 unit PO Q6H [facility] Last Admin: 06/26/18 12:27 Dose: Not Given Nystatin/Triamcinolone Acetonide (Mycolog) 1 applic TOPICAL TID [facility]; Protocol Last Admin: 06/26/18 12:27 Dose: 1 applic Ondansetron HCl (Zofran) 4 mg IV Q8H PRN PRN PRN Reason: NAUSEA/VOMITING Last Admin: 06/24/18 18:22 Dose: 4 mg Pantoprazole Sodium (Protonix) 40 mg PO BID [facility] Last Admin: 06/26/18 12:26 Dose: 40 mg Quetiapine Fumarate (Seroquel) 25 mg PO BID [facility] Last Admin: 06/26/18 12:26 Dose: 25 mg Senna/Docusate Sodium (Senokot-S, Yanet-Colace) 2 tablet PO DAILY PRN PRN PRN Reason: CONSTIPATION Sodium Chloride () 5 - 15 ml IV UD PRN PRN Reason: SALINE FLUSH Last Admin: 06/25/18 20:58 Dose: 10 ml Sodium Chloride () 10 - 40 ml IV UD PRN PRN Reason: MULTILUMEN/HICMAN CATH FLUSH Last Admin: 06/24/18 06:17 Dose: 10 ml Code Visit Inpatient E&M: [id number] [facility] Hosp L3
--- NOTE | 2018-06-26 14:10 | US_ITS ---
HISTORY: ABN LABS EXAM/TECHNIQUE: US Abdomen Limited (quadrant): Right upper quadrant. COMPARISON: 08/28/13 CT abdomen pelvis. FINDINGS: # of images incl. paperwork: 106 Increased hepatic echotexture. Heterogenous area in the posterior aspect of the right lobe of the liver 8.3 x 7.3 x 2.3 cm. Gallbladder distended. No gallstones. Small amount of sludge in the gallbladder. Gallbladder wall thickness normal, 2 mm. Common bile duct normal caliber 3 mm. The right kidney with no shadowing stone or hydronephrosis. Normal cortical thickness. 11.6 x 5.1 x 6.2 cm. Pancreatic tail obscured by bowel gas. Visualized portion of the pancreas unremarkable. US/Abdomen Limited IMPRESSION: No acute findings. Hepatic steatosis with 8.3 cm in greatest dimension heterogenous region in the right lobe of the liver. While this may be related to the steatosis, hepatic protocol CT or MRI suggested to exclude an underlying mass which is also possible. at 1955 Reported and signed by: Dima Manzanares MD Electronically Signed: Dima Manzanares, at 19:56 EST Tel , Service support ,
--- NOTE | 2018-06-26 15:55 | CASEMGMT ---
Pt attempted to be taken off amio, cardizem, and heparin gtt's today and placed on po amio, cardizem, and eliquis. Pt is currently in Afib RVR with a rate of 146. Pt's plan is to go to [facility] when medically ready. Toya from [facility] updated this am via message regarding same. Rabia SHAFFER CM
[2018-06-26] MEDS: Metoprolol Tartrate 25 MG Tablet 50 MG PO (17:53)
[2018-06-26] MEDS: 0.9% NaCl Peripheral Flush Adult/Peds IV ×2 (17:53→21:32)
[2018-06-27] VITALS (19 sets, daily range): BP systolic 117–155; BP diastolic 77–96; PULSE 87–105; RESP 14–24; TEMP 35.8–36.8; O2SAT 5–98
[2018-06-27 05:16] LABS: Absolute Lymphocyte Count 0.55 X10^3/ul (0.83-4.51); Absolute Neutrophil Count 22.4 X10^3/uL (2.0-7.7); Basophil# 0.03 X10^3/uL; Basophil% 0.1 % (0-1); Hematocrit 35.6 % (37-47); Lymphocyte # 0.55 X10^3/ul (4.0); Lymphocyte % 2.2 % (19-41); Mean Corp Hgb Conc 33.7 g/gl (32-36); Mean Corpuscular Hgb 29.1 pg (27.0-32.0); Mean Corpuscular Volume 86.4 fL (81-99); Mean Platelet Vol. 11.9 fl (6.2-12.0); Monocyte# 0.94 X10^3/uL; Monocyte% 3.8 % (0-10); Neutrophil # 22.44 X10^3/uL (2.7-7.7); Neutrophil % 91.2 % (47-70); Platelet Count 174 K/mm3 (150-450); RBC Distribution Width CV 16.3 % (11.6-14.6); RBC Distribution Width SD 47.2 fl (35.1-43.9); Red Blood Count 4.12 M/mm3 (4.2-5.4); White Blood Count 24.6 K/mm3 (4.4-11.0)
[2018-06-27 05:17] LABS: Differential Indicated SCAN CRITERIA MET; POSITIVE COUNT YES; POSITIVE DIFFERENTIAL YES; POSITIVE MORPHOLOGY YES
[2018-06-27] MEDS: Nystatin/Triamcin Cream Tube 1 APPLIC TOPICAL ×3 (05:17→22:26)
[2018-06-27] MEDS: Menthol/Lanolin/Calamine/Znox 113 GM Tube 1 APPLIC TOPICAL ×3 (05:17→22:25)
[2018-06-27 05:25] LABS: AST(SGOT) 69 U/L (15-37); Alanine Aminotransfer ALT/SGPT 71 U/L (13-56); Albumin, Serum 2.2 g/dL (3.2-5.0); Alkaline Phosphatase 164 U/L (45-117); Anion Gap 13 (5-15); BUN 75 mg/dL (7-18); BUN/Creat Ratio 16.1 RATIO (10-20); Bilirubin, Direct 5.45 mg/dL (0.00-0.30); Calcium,Total 7.8 mg/dL (8.5-10.1); Chloride 96 mmol/L (98-107); Creatinine, Serum 4.65 mg/dL (0.55-1.02); EST Glomerular Filtration Rate 10 mL/min (>60); Est Glom Filt Rate - Afr Amer 13 mL/min (>60); Estimated Creatinine Clearance 11.67 ml/min; Globulin 3.8 g/dL (2.2-4.2); Glucose 105 mg/dL (74-106); Sodium Level 136 mmol/L (136-145)
--- NOTE | 2018-06-27 08:04 | PN.CARD_ITS ---
Subjectve: Patient seen and evaluated. Objective: Vital Signs Temp Pulse Resp BP Pulse Ox 98.2 F 87 22 H 117/77 96 06/27/18 03:00 06/27/18 07:23 06/27/18 07:23 06/27/18 03:00 06/27/18 07:23 Oxygen Flow Rate (L/min) 5 Oxygen Delivery Method Bi-pap Weight: 236 lb 15.951 oz Body Mass Index (BMI) 40.4 Intake and Output for Last 24 Hours 06/25/18 06/26/18 06/27/18 23:59 23:59 23:59 Intake Total 1479.8 / 1479.8 1242.7 / 1242.7 Output Total 0 / 0 3500 / 3500 Balance 1479.8 / 1479.8 -2257.3 / -2257.3 General: Awake, Alert, Oriented x 3 HEENT: PERRL, EOMI, Sclera Non Icteric Neck: Supple, Good ROM, No Lymph Node Enlargement Lungs: Clear to auscultation Cardiovascular: Regular Rhythm, Normal S1, Normal S2, No Murmurs, No Rubs, No Gallops Vascular: No Carotid Bruits, Normal Femoral Pulses, Normal Radial Pulses, Normal Dorsalis Pedal Pulse, Normal Posterior Tibial Pulses Abdomen: Bowel Sounds Present, Soft, Non Tender, No HSM, No Organomegaly Extremities: No Cyanosis, No Clubbing, No edema Neurological: No Focal Motor or Sensory Deficit 06/27/18 04:55: WBC 24.6 H, RBC 4.12 L, Hgb 12.0, Hct 35.6 L, MCV 86.4, MCH 29.1, MCHC 33.7, RDW 16.3 H, RDW Differential 47.2 H, Plt Count 174, MPV 11.9, Immature Gran % (Auto) 2.700 H, Neut % (Auto) 91.2 H, Lymph % (Auto) 2.2 L, [place] % (Auto) 3.8, Eos % (Auto) 0.0, Baso % (Auto) 0.1, Absolute Neuts (auto) 22.4 H, Total Counted Not Reportable 06/27/18 04:55: Sodium 136, Potassium 6.0 H*, Chloride 96 L, Carbon Dioxide 27.0, Anion Gap 13, BUN 75 H, Creatinine 4.65 H, Est GFR (MDRD) Af Amer 13 L, Est GFR (MDRD) Non-Af 10 L, BUN/Creatinine Ratio 16.1, Glucose 105, Calcium 7.8 L, Total Bilirubin 6.80 H, Direct Bilirubin 5.45 H Rhythm: EKG: ECHO: Stress Test: Cardiac Cath: PCI: CT Surgery: Holter monitor: EPS: PPM: CXR: Chest CT Scan: Medical Necessity - Tobacco Use Smoking Status: Current every day smoker Tobacco Use: Cigarettes Assessment/Plan 1. Atrial fibrillation * Patient presented with atrial fibrillation likely secondary to her lung condition. . * Echocardiogram done demonstrated mild to moderately globally reduced left ventricular systolic function. * I do not think that long-term anticoagulation is warranted at this time. We will switch over to Eliquis * I do not have any plans at this time for DC cardioversion however. We will continue her on amiodarone, beta-moris. 2. Cardiopulmonary arrest * I suspect the above is on the basis of severe hypoxia as well as the bradycardia arrhythmia secondary to the beta-moris that the patient was receiving. * That appears to have resolved and currently patient is on supportive management with three-vasoactive agents. We will try and titrate to maintain a mean arterial pressure of 65 mmHg. 3. Lung consolidation * I suspect the above is on the basis of an infection and not a pulmonary embolism with pulmonary infarction. * * 4. Abnormal cardiac enzymes * Above is likely secondary to demand ischemia. * No further workup at this time 5. Acute renal insufficiency * The above is likely secondary to her septic state, hypotension and poor perfusion likely on an underlying baseline renal dysfunction. * Will continue with dialysis * We will continue to follow with you peripherally. * * Above discussed with hospitalist and nursing staff.
[2018-06-27 09:01] LABS: Pathologist Review Reviewed
[2018-06-27] MEDS: Amiodarone 200 MG Tablet PO ×2 (09:14→22:30)
[2018-06-27] MEDS: Metoprolol Tartrate 100 MG Tablet PO ×2 (09:14→22:30)
[2018-06-27] MEDS: APIXABAN 2.5 MG TABLET PO (09:14)
[2018-06-27] MEDS: Pantoprazole Sodium 40 MG Tablet PO ×2 (09:14→22:30)
[2018-06-27] MEDS: QUEtiapine 25 MG Tablet PO ×2 (09:15→22:30)
--- NOTE | 2018-06-27 11:17 | CASEMGMT ---
Addendum entered by Rafaela Mondragon 06/27/18 15:37: Ezequiel, pt's BHARATHI and Isela met with this RN LAURA re: pt going to [facility]. Ezequiel states he wants pt to go to [facility] instead of [facility]. Explained to Ezequiel and Isela that pre-cert would need restarted and this could cause a potential delay in discharge, as noted below. Ezequiel states he originally wanted [facility] location because she told me that [facility] was a better facility. DEENA SANCHEZ inquired of Ezequiel who he was referring to when states she. Ezequiel states that Stephania, the lady from [facility] told me that. RN LAURA offered for Ezequiel to talk to Stephania @ [facility] if he has any questions or concerns about either location and he stated he does not want to talk to her at this time. Ezequiel made aware that pt was agreeable to going to [facility] but that if he was not agreeable to this location that this could be discussed again with pt and pre-cert could be initiated for [facility] if that is what pt wishes. Ezequiel stated that he is agreeable to pt going to [facility] as originally planned. Original Note: Addendum entered by Rafaela Mondragon 06/27/18 14:51: Call received from Stephania. She states per Gilberto a new pre-cert would need to be initiated and this could take up to another 24 hrs to get approval. Stephania states this could potentially delay pt's discharge until Sunday. Stephania asked DEENA SANCHEZ to discuss with pt. RN CM to room to talk with pt and she was notified of the above. RN LAURA politely inquired with pt why she was wishing to go to [facility] now, and pt shrugged her shoulders and said, I don't know, just something different. Pt did not give any further reasoning. Pt states she wants to just go to [facility] now as previously planned. Call placed to Stephania @ [facility] and she was notified. Original Note: Addendum entered by Rafaela Mondragon 06/27/18 14:27: Per Stephania, pt preferred [facility] and pre-cert was initiated for there. RN LAURA notified that pt would like to talk to someone re: going to [facility] now. RN CM to room to talk with pt. Pt confirms that she is now wanting to go to [facility] instead of [facility]. Call placed to Stephania @ [facility] and she was notified. Stephania states will notify Gilberto and inquire if new pre-cert needs started. Original Note: DEENA SANCHEZ NOTE: Per Dr Medina, he anticipates pt will be discharged either tomorrow 06/28 or over the weekend. Stephania @ [facility] notified of same. Stephania on unit and to talk with pt and states she will start pre-cert today. Stephania given updated clinical information. Andrade TORRES RN CM
[2018-06-27] MEDS: Acetaminophen 325 MG Tablet 650 MG PO (13:05)
--- NOTE | 2018-06-27 13:09 | PCM.PN.REN ---
Patient Problems: Active and Suspected Problems Severe sepsis (Acute) Acute respiratory failure with hypoxia (Acute) Pneumonia (Acute) Atrial fibrillation with RVR (Acute) LYNNETTE (acute kidney injury) (Acute) Problem with dialysis access (Acute) Subjective: no new complaints - Physical Exam General: Alert, Oriented x3, Cooperative HEENT: Atraumatic, PERRLA, EOMI, Normocephalic Neck: Supple, No JVD, Negative Carotid Bruits Lungs: Clear to auscultation, Normal air movement Cardiovascular: Regular rate, No murmurs Abdomen: Bowel Sounds Present, Soft, Non Tender Extremities: No edema, Capillary Refill Less than 3 Seconds Skin: No rashes, No breakdown Musculoskeletal: No Tenderness to Palpation of Joints or Extremities Neurological: Cranial nerves II-XII grossly intact Psych/Mental Status: Normal Affect, Appropriate Vital Signs Temp Pulse Resp BP Pulse Ox 98.0 F 102 H 18 117/80 92 06/27/18 09:25 06/27/18 11:00 06/27/18 09:25 06/27/18 09:25 06/27/18 09:25 Oxygen Flow Rate (L/min) 5 Oxygen Delivery Method Nasal Cannula Weight: 107.5 kg Body Mass Index (BMI) 40.4 Intake and Output for Last 24 Hours 06/25/18 06/26/18 06/27/18 23:59 23:59 23:59 Intake Total 1479.8 / 1479.8 1242.7 / 1242.7 350 / 350 Output Total 0 / 0 3500 / 3500 Balance 1479.8 / 1479.8 -2257.3 / -2257.3 350 / 350 Laboratory Tests Past 24 Hrs 06/26/18 06/27/18 06/27/18 05:28 04:55 04:55 WBC 24.6 H RBC 4.12 L Hgb 12.0 Hct 35.6 L MCV 86.4 MCH 29.1 MCHC 33.7 RDW 16.3 H RDW Differential 47.2 H Plt Count 174 MPV 11.9 Immature Gran % (Auto) 2.700 H Neut % (Auto) 91.2 H Lymph % (Auto) 2.2 L [place] % (Auto) 3.8 Eos % (Auto) 0.0 Baso % (Auto) 0.1 Absolute Neuts (auto) 22.4 H Absolute Lymphs (auto) 0.55 L Total Counted Not Reportable Diff Path Review Reviewed August Sodium 136 Potassium 6.0 H* Chloride 96 L Carbon Dioxide 27.0 Anion Gap 13 BUN 75 H Creatinine 4.65 H Estim Creat Clear Calc 11.67 Est GFR (MDRD) Af Amer 13 L Est GFR (MDRD) Non-Af 10 L BUN/Creatinine Ratio 16.1 Glucose 105 Calcium 7.8 L Total Bilirubin 6.80 H Direct Bilirubin 5.45 H AST 69 H ALT 71 H Alkaline Phosphatase 164 H Total Protein 6.0 L Albumin 2.2 L Globulin 3.8 Medical Necessity - Tobacco Use Smoking Status: Current every day smoker Tobacco Use: Cigarettes Assessment/Plan All Active Problems Severe sepsis (Acute) Acute respiratory failure with hypoxia (Acute) Pneumonia (Acute) Atrial fibrillation with RVR (Acute) LYNNETTE (acute kidney injury) (Acute) Problem with dialysis access (Acute) 1-Acute kidney injury. Most probably related to ischemic ATN Patient is currently dependent on dialysis for volume and metabolic support. Remains anuric. No recovery of kidney function. Dialysis started on June 17. 2-Acute respiratory failure from community-acquired pneumonia/Influenza A infection. Patient was extubated on June 20. better now 3-bilateral pneumonia/Influenza A infection. On antibiotics as per the ICU team. Plan kayexalate for hyperkalemia HD tomorrow [facility] to [facility]
--- NOTE | 2018-06-27 13:18 | PCM.PN.HOSP ---
Patient Problems: Active and Suspected Problems Severe sepsis (Acute) Acute respiratory failure with hypoxia (Acute) Pneumonia (Acute) Atrial fibrillation with RVR (Acute) LYNNETTE (acute kidney injury) (Acute) Problem with dialysis access (Acute) Subjective: Patient looks more awake and alert. Patient is still on high flow oxygen and intermittent BiPAP. Patient is dialysis dependent. Heart rate in upper 90s. Vitals/I&O's: Vital Signs Temp Pulse Resp BP Pulse Ox 98.0 F 102 H 18 117/80 92 06/27/18 09:25 06/27/18 11:00 06/27/18 09:25 06/27/18 09:25 06/27/18 09:25 Oxygen Flow Rate (L/min) 5 Oxygen Delivery Method Nasal Cannula Weight: 236 lb 15.951 oz Body Mass Index (BMI) 40.4 Intake and Output for Last 24 Hours 06/25/18 06/26/18 06/27/18 23:59 23:59 23:59 Intake Total 1479.8 / 1479.8 1242.7 / 1242.7 350 / 350 Output Total 0 / 0 3500 / 3500 Balance 1479.8 / 1479.8 -2257.3 / -2257.3 350 / 350 General: Alert, Oriented x3, Cooperative HEENT: Atraumatic, PERRLA, EOMI, Normocephalic Neck: Supple, No JVD, Negative Carotid Bruits, - - CVC catheter in left IJ. Lungs: Diminished - Severely diminished air entry bilaterally, Rhonchi, Short of Breath Cardiovascular: Regular rate, Regular Rhythm, Normal S1, Normal S2, No murmurs Abdomen: Bowel Sounds Present, Soft, Non Tender, Non-Distended Extremities: No edema, Capillary Refill Less than 3 Seconds Skin: No rashes, No breakdown Musculoskeletal: No Tenderness to Palpation of Joints or Extremities, Arthritic Changes Neurological: Cranial nerves II-XII grossly intact Psych/Mental Status: Normal Affect, Appropriate Laboratory Results 06/26/18 05:28: Diff Path Review Reviewed 06/27/18 04:55: WBC 24.6 H, RBC 4.12 L, Hgb 12.0, Hct 35.6 L, MCV 86.4, MCH 29.1, MCHC 33.7, RDW 16.3 H, RDW Differential 47.2 H, Plt Count 174, MPV 11.9, Immature Gran % (Auto) 2.700 H, Neut % (Auto) 91.2 H, Lymph % (Auto) 2.2 L, [place] % (Auto) 3.8, Eos % (Auto) 0.0, Baso % (Auto) 0.1, Absolute Neuts (auto) 22.4 H, Absolute Lymphs (auto) 0.55 L, Total Counted Not Reportable, Diff Path Review August foll 06/27/18 04:55: Sodium 136, Potassium 6.0 H*, Chloride 96 L, Carbon Dioxide 27.0, Anion Gap 13, BUN 75 H, Creatinine 4.65 H, Estim Creat Clear Calc 11.67, Est GFR (MDRD) Af Amer 13 L, Est GFR (MDRD) Non-Af 10 L, BUN/Creatinine Ratio 16.1, Glucose 105, Calcium 7.8 L, Total Bilirubin 6.80 H, Direct Bilirubin 5.45 H, AST 69 H, ALT 71 H, Alkaline Phosphatase 164 H, Total Protein 6.0 L, Albumin 2.2 L, Globulin 3.8 Current Medications Acetaminophen (Tylenol) 650 mg PO Q6H PRN PRN PRN Reason: PAIN Last Admin: 06/27/18 13:05 Dose: 650 mg Albuterol Sulfate (Ventolin Aerosols) 2.5 mg INHALATION Q2H PRN PRN PRN Reason: SHORTNESS OF BREATH Amiodarone HCl (Cordarone) 200 mg PO BID [facility] Last Admin: 06/27/18 09:14 Dose: 200 mg Apixaban (Eliquis) 2.5 mg PO BID [facility] Last Admin: 06/27/18 09:14 Dose: 2.5 mg Calamine/Phenol (Calmoseptine Ointment) 1 applic TOPICAL TID [facility]; Protocol Last Admin: 06/27/18 13:05 Dose: 1 applicatio Fentanyl Citrate (Sublimaze (100mcg Ampule)) 25 mcg IV Q2H PRN PRN PRN Reason: PAIN Last Admin: 06/24/18 00:37 Dose: 25 mcg Sodium Chloride () 250 mls @ 15 mls/hr IV .[id number] PRN PRN Reason: SALINE FLUSH Last Admin: 06/17/18 21:17 Dose: 15 mls/hr Ipratropium [place] (Atrovent) 0.5 mg INHALATION Q4H.RT PRN PRN Reason: SOB &/OR WHEEZING Methylprednisolone (Solu-Medrol) 40 mg IV Q12 [facility] Last Admin: 06/27/18 09:15 Dose: 40 mg Metoprolol Tartrate (Lopressor (Beta Princess)) 100 mg PO BID [facility] Last Admin: 06/27/18 09:14 Dose: 100 mg Nystatin (Nystatin) 500,000 unit PO Q6H [facility] Last Admin: 06/27/18 11:22 Dose: Not Given Nystatin/Triamcinolone Acetonide (Mycolog) 1 applic TOPICAL TID [facility]; Protocol Last Admin: 06/27/18 13:05 Dose: 1 applic Ondansetron HCl (Zofran) 4 mg IV Q8H PRN PRN PRN Reason: NAUSEA/VOMITING Last Admin: 06/24/18 18:22 Dose: 4 mg Pantoprazole Sodium (Protonix) 40 mg PO BID [facility] Last Admin: 06/27/18 09:14 Dose: 40 mg Quetiapine Fumarate (Seroquel) 25 mg PO BID [facility] Last Admin: 06/27/18 09:15 Dose: 25 mg Senna/Docusate Sodium (Senokot-S, Yanet-Colace) 2 tablet PO DAILY PRN PRN PRN Reason: CONSTIPATION Sodium Chloride () 5 - 15 ml IV UD PRN PRN Reason: SALINE FLUSH Last Admin: 06/26/18 21:32 Dose: 10 ml Sodium Chloride () 10 - 40 ml IV UD PRN PRN Reason: MULTILUMEN/HICMAN CATH FLUSH Last Admin: 06/27/18 09:15 Dose: 40 ml Sodium Polystyrene Sulfonate (Kayexalate) 15 gm PO X1 ONE Stop: 06/27/18 13:09 Medical Necessity - Tobacco Use Smoking Status: Current every day smoker Tobacco Use: Cigarettes Assessment/Plan All Active Problems Severe sepsis (Acute) Acute respiratory failure with hypoxia (Acute) Pneumonia (Acute) Atrial fibrillation with RVR (Acute) LYNNETTE (acute kidney injury) (Acute) Problem with dialysis access (Acute) This is a 58 years old female patient who is being admitted to ICU from ER because of shortness of breath, cough and fever, found to have multilobar community-acquired pneumonia complicated by septic shock and her hospital course complicated by cardiac arrest status post CPR, A. fib with RVR, acute renal failure requiring hemodialysis as well as elevated LFTs secondary to shock liver. On 06/22, she went back into A. fib with RVR, received 1 dose of IV amiodarone and now on IV Cardizem drip. #1 septic shock with multiorgan failure secondary to severe community-acquired pneumonia status post cardiac arrest: Blood pressure is maintained, remained in A. fib with RVR, uncontrolled. She has been afebrile. She is on IV steroids. Sputum culture revealed Streptococcus pneumoniae. Blood cultures showed no growth in 48 hours. Urine culture showed no growth. Respiratory panel for viruses came back positive for influenza A. Antibiotics are discontinued #2 new onset A. fib with RVR/indeterminate troponin: IV Cardizem and IV amiodarone drip discontinued; heart rate still 40%, mild to moderate global hypokinesis of the left ventricle. Cardiology on the case. No plan for cardiac catheter or invasive procedure. No plan for DC cardioversion. #3 acute streptococcal multilobar community-acquired pneumonia: Completed his Levaquin on 06/24/2018. Sputum culture revealed Streptococcus pneumoniae. Blood culture showed no growth in 48 hours. Urine cultures negative. #4 status post cardiac arrest x2: Attributed to new onset A. fib with RVR that is likely precipitated by pneumonia. Her troponin are minimally elevated. EKG revealed no acute ischemic changes. Echocardiogram reviewed as above. At this time, no evidence of acute CHF. #5 acute hypoxic and hypercapnic respiratory failure: Secondary to pneumonia. Status post extubation, remains on BiPAP continuously, nursing staff reported desaturation without BiPAP. #6 acute renal failure/mild hyperkalemia from ATN; hemodialysis dependent: Patient is still has minimal urine output; mainly an Anuric on dialysis which seems to be permanent. Plan for dialysis as per Nephrology recommendation. #7 shock liver: Secondary to septic shock. Liver transaminases as well as total bilirubin continued to improve. Alk phos is normal. AST and ALT have improved. Albumin 2.4. Alkaline phosphatase 126. Total bilirubin 8.0. Direct bilirubin 6.05. Right upper quadrant sonogram ordered. Patient liver enzymes profile follow shock liver as transaminases have improved and total bili of increased but expected to stabilize and decrease. #8 DVT prophylaxis: SCDs. On apixaban Discharge preparation for long-term acute care as the patient needs hemodialysis, noninvasive ventilatory support including BiPAP/high flow oxygen. Discussed with the case aide and the emergency department physician. Laboratory Results 06/26/18 05:28: Diff Path Review Reviewed 06/27/18 04:55: WBC 24.6 H, RBC 4.12 L, Hgb 12.0, Hct 35.6 L, MCV 86.4, MCH 29.1, MCHC 33.7, RDW 16.3 H, RDW Differential 47.2 H, Plt Count 174, MPV 11.9, Immature Gran % (Auto) 2.700 H, Neut % (Auto) 91.2 H, Lymph % (Auto) 2.2 L, [place] % (Auto) 3.8, Eos % (Auto) 0.0, Baso % (Auto) 0.1, Absolute Neuts (auto) 22.4 H, Absolute Lymphs (auto) 0.55 L, Total Counted Not Reportable, Diff Path Review May foll Active Medications Acetaminophen (Tylenol) 650 mg PO Q6H PRN PRN PRN Reason: PAIN Last Admin: 06/27/18 13:05 Dose: 650 mg Albuterol Sulfate (Ventolin Aerosols) 2.5 mg INHALATION Q2H PRN PRN PRN Reason: SHORTNESS OF BREATH Amiodarone HCl (Cordarone) 200 mg PO BID [facility] Last Admin: 06/27/18 09:14 Dose: 200 mg Apixaban (Eliquis) 2.5 mg PO BID [facility] Last Admin: 06/27/18 09:14 Dose: 2.5 mg Calamine/Phenol (Calmoseptine Ointment) 1 applic TOPICAL TID [facility]; Protocol Last Admin: 06/27/18 13:05 Dose: 1 applicatio Fentanyl Citrate (Sublimaze (100mcg Ampule)) 25 mcg IV Q2H PRN PRN PRN Reason: PAIN Last Admin: 06/24/18 00:37 Dose: 25 mcg Sodium Chloride () 250 mls @ 15 mls/hr IV .[id number] PRN PRN Reason: SALINE FLUSH Last Admin: 06/17/18 21:17 Dose: 15 mls/hr Ipratropium [place] (Atrovent) 0.5 mg INHALATION Q4H.RT PRN PRN Reason: SOB &/OR WHEEZING Methylprednisolone (Solu-Medrol) 40 mg IV Q12 [facility] Last Admin: 06/27/18 09:15 Dose: 40 mg Metoprolol Tartrate (Lopressor (Beta Princess)) 100 mg PO BID [facility] Last Admin: 06/27/18 09:14 Dose: 100 mg Nystatin (Nystatin) 500,000 unit PO Q6H [facility] Last Admin: 06/27/18 11:22 Dose: Not Given Nystatin/Triamcinolone Acetonide (Mycolog) 1 applic TOPICAL TID [facility]; Protocol Last Admin: 06/27/18 13:05 Dose: 1 applic Ondansetron HCl (Zofran) 4 mg IV Q8H PRN PRN PRN Reason: NAUSEA/VOMITING Last Admin: 06/24/18 18:22 Dose: 4 mg Pantoprazole Sodium (Protonix) 40 mg PO BID [facility] Last Admin: 06/27/18 09:14 Dose: 40 mg Quetiapine Fumarate (Seroquel) 25 mg PO BID [facility] Last Admin: 06/27/18 09:15 Dose: 25 mg Senna/Docusate Sodium (Senokot-S, Yanet-Colace) 2 tablet PO DAILY PRN PRN PRN Reason: CONSTIPATION Sodium Chloride () 5 - 15 ml IV UD PRN PRN Reason: SALINE FLUSH Last Admin: 06/26/18 21:32 Dose: 10 ml Sodium Chloride () 10 - 40 ml IV UD PRN PRN Reason: MULTILUMEN/HICMAN CATH FLUSH Last Admin: 06/27/18 09:15 Dose: 40 ml Sodium Polystyrene Sulfonate (Kayexalate) 15 gm PO X1 ONE Stop: 06/27/18 13:09 06/27/18 04:55: Sodium 136, Potassium 6.0 H*, Chloride 96 L, Carbon Dioxide 27.0, Anion Gap 13, BUN 75 H, Creatinine 4.65 H, Estim Creat Clear Calc 11.67, Est GFR (MDRD) Af Amer 13 L, Est GFR (MDRD) Non-Af 10 L, BUN/Creatinine Ratio 16.1, Glucose 105, Calcium 7.8 L, Total Bilirubin 6.80 H, Direct Bilirubin 5.45 H, AST 69 H, ALT 71 H, Alkaline Phosphatase 164 H, Total Protein 6.0 L, Albumin 2.2 L, Globulin 3.8 Code Visit Inpatient E&M: 51815 Subs Hosp L2
--- NOTE | 2018-06-27 13:23 | PN_ITS ---
Patient Problems: Active and Suspected Problems Severe sepsis (Acute) Acute respiratory failure with hypoxia (Acute) Pneumonia (Acute) Atrial fibrillation with RVR (Acute) LYNNETTE (acute kidney injury) (Acute) Problem with dialysis access (Acute) Subjective: Patient looks more awake and alert. Patient is still on high flow oxygen and intermittent BiPAP. Patient is dialysis dependent. Heart rate in upper 90s. Vitals/I&O's: Vital Signs Temp Pulse Resp BP Pulse Ox 98.0 F 102 H 18 117/80 92 06/27/18 09:25 06/27/18 11:00 06/27/18 09:25 06/27/18 09:25 06/27/18 09:25 Oxygen Flow Rate (L/min) 5 Oxygen Delivery Method Nasal Cannula Weight: 236 lb 15.951 oz Body Mass Index (BMI) 40.4 Intake and Output for Last 24 Hours 06/25/18 06/26/18 06/27/18 23:59 23:59 23:59 Intake Total 1479.8 / 1479.8 1242.7 / 1242.7 350 / 350 Output Total 0 / 0 3500 / 3500 Balance 1479.8 / 1479.8 -2257.3 / -2257.3 350 / 350 General: Alert, Oriented x3, Cooperative HEENT: Atraumatic, PERRLA, EOMI, Normocephalic Neck: Supple, No JVD, Negative Carotid Bruits, - - CVC catheter in left IJ. Lungs: Diminished - Severely diminished air entry bilaterally, Rhonchi, Short of Breath Cardiovascular: Regular rate, Regular Rhythm, Normal S1, Normal S2, No murmurs Abdomen: Bowel Sounds Present, Soft, Non Tender, Non-Distended Extremities: No edema, Capillary Refill Less than 3 Seconds Skin: No rashes, No breakdown Musculoskeletal: No Tenderness to Palpation of Joints or Extremities, Arthritic Changes Neurological: Cranial nerves II-XII grossly intact Psych/Mental Status: Normal Affect, Appropriate Laboratory Results 06/26/18 05:28: Diff Path Review Reviewed 06/27/18 04:55: WBC 24.6 H, RBC 4.12 L, Hgb 12.0, Hct 35.6 L, MCV 86.4, MCH 29.1, MCHC 33.7, RDW 16.3 H, RDW Differential 47.2 H, Plt Count 174, MPV 11.9, Immature Gran % (Auto) 2.700 H, Neut % (Auto) 91.2 H, Lymph % (Auto) 2.2 L, [place] % (Auto) 3.8, Eos % (Auto) 0.0, Baso % (Auto) 0.1, Absolute Neuts (auto) 22.4 H, Absolute Lymphs (auto) 0.55 L, Total Counted Not Reportable, Diff Path Review August foll 06/27/18 04:55: Sodium 136, Potassium 6.0 H*, Chloride 96 L, Carbon Dioxide 27.0, Anion Gap 13, BUN 75 H, Creatinine 4.65 H, Estim Creat Clear Calc 11.67, Est GFR (MDRD) Af Amer 13 L, Est GFR (MDRD) Non-Af 10 L, BUN/Creatinine Ratio 16.1, Glucose 105, Calcium 7.8 L, Total Bilirubin 6.80 H, Direct Bilirubin 5.45 H, AST 69 H, ALT 71 H, Alkaline Phosphatase 164 H, Total Protein 6.0 L, Albumin 2.2 L, Globulin 3.8 Current Medications Acetaminophen (Tylenol) 650 mg PO Q6H PRN PRN PRN Reason: PAIN Last Admin: 06/27/18 13:05 Dose: 650 mg Albuterol Sulfate (Ventolin Aerosols) 2.5 mg INHALATION Q2H PRN PRN PRN Reason: SHORTNESS OF BREATH Amiodarone HCl (Cordarone) 200 mg PO BID [facility] Last Admin: 06/27/18 09:14 Dose: 200 mg Apixaban (Eliquis) 2.5 mg PO BID [facility] Last Admin: 06/27/18 09:14 Dose: 2.5 mg Calamine/Phenol (Calmoseptine Ointment) 1 applic TOPICAL TID [facility]; Protocol Last Admin: 06/27/18 13:05 Dose: 1 applicatio Fentanyl Citrate (Sublimaze (100mcg Ampule)) 25 mcg IV Q2H PRN PRN PRN Reason: PAIN Last Admin: 06/24/18 00:37 Dose: 25 mcg Sodium Chloride () 250 mls @ 15 mls/hr IV .[id number] PRN PRN Reason: SALINE FLUSH Last Admin: 06/17/18 21:17 Dose: 15 mls/hr Ipratropium [place] (Atrovent) 0.5 mg INHALATION Q4H.RT PRN PRN Reason: SOB &/OR WHEEZING Methylprednisolone (Solu-Medrol) 40 mg IV Q12 [facility] Last Admin: 06/27/18 09:15 Dose: 40 mg Metoprolol Tartrate (Lopressor (Beta Princess)) 100 mg PO BID [facility] Last Admin: 06/27/18 09:14 Dose: 100 mg Nystatin (Nystatin) 500,000 unit PO Q6H [facility] Last Admin: 06/27/18 11:22 Dose: Not Given Nystatin/Triamcinolone Acetonide (Mycolog) 1 applic TOPICAL TID [facility]; Protocol Last Admin: 06/27/18 13:05 Dose: 1 applic Ondansetron HCl (Zofran) 4 mg IV Q8H PRN PRN PRN Reason: NAUSEA/VOMITING Last Admin: 06/24/18 18:22 Dose: 4 mg Pantoprazole Sodium (Protonix) 40 mg PO BID [facility] Last Admin: 06/27/18 09:14 Dose: 40 mg Quetiapine Fumarate (Seroquel) 25 mg PO BID [facility] Last Admin: 06/27/18 09:15 Dose: 25 mg Senna/Docusate Sodium (Senokot-S, Yanet-Colace) 2 tablet PO DAILY PRN PRN PRN Reason: CONSTIPATION Sodium Chloride () 5 - 15 ml IV UD PRN PRN Reason: SALINE FLUSH Last Admin: 06/26/18 21:32 Dose: 10 ml Sodium Chloride () 10 - 40 ml IV UD PRN PRN Reason: MULTILUMEN/HICMAN CATH FLUSH Last Admin: 06/27/18 09:15 Dose: 40 ml Sodium Polystyrene Sulfonate (Kayexalate) 15 gm PO X1 ONE Stop: 06/27/18 13:09 Medical Necessity - Tobacco Use Smoking Status: Current every day smoker Tobacco Use: Cigarettes Assessment/Plan All Active Problems Severe sepsis (Acute) Acute respiratory failure with hypoxia (Acute) Pneumonia (Acute) Atrial fibrillation with RVR (Acute) LYNNETTE (acute kidney injury) (Acute) Problem with dialysis access (Acute) This is a 58 years old female patient who is being admitted to ICU from ER because of shortness of breath, cough and fever, found to have multilobar community-acquired pneumonia complicated by septic shock and her hospital course complicated by cardiac arrest status post CPR, A. fib with RVR, acute renal failure requiring hemodialysis as well as elevated LFTs secondary to shock liver. On 06/22, she went back into A. fib with RVR, received 1 dose of IV amiodarone and now on IV Cardizem drip. #1 septic shock with multiorgan failure secondary to severe community-acquired pneumonia status post cardiac arrest: Blood pressure is maintained, remained in A. fib with RVR, uncontrolled. She has been afebrile. She is on IV steroids. Sputum culture revealed Streptococcus pneumoniae. Blood cultures showed no growth in 48 hours. Urine culture showed no growth. Respiratory panel for viruses came back positive for influenza A. Antibiotics are discontinued #2 new onset A. fib with RVR/indeterminate troponin: IV Cardizem and IV amiodarone drip discontinued; heart rate still 40%, mild to moderate global hypokinesis of the left ventricle. Cardiology on the case. No plan for cardiac catheter or invasive procedure. No plan for DC cardioversion. #3 acute streptococcal multilobar community-acquired pneumonia: Completed his Levaquin on 06/24/2018. Sputum culture revealed Streptococcus pneumoniae. Blood culture showed no growth in 48 hours. Urine cultures negative. #4 status post cardiac arrest x2: Attributed to new onset A. fib with RVR that is likely precipitated by pneumonia. Her troponin are minimally elevated. EKG revealed no acute ischemic changes. Echocardiogram reviewed as above. At this time, no evidence of acute CHF. #5 acute hypoxic and hypercapnic respiratory failure: Secondary to pneumonia. Status post extubation, remains on BiPAP continuously, nursing staff reported desaturation without BiPAP. #6 acute renal failure/mild hyperkalemia from ATN; hemodialysis dependent: Patient is still has minimal urine output; mainly an Anuric on dialysis which seems to be permanent. Plan for dialysis as per Nephrology recommendation. #7 shock liver: Secondary to septic shock. Liver transaminases as well as total bilirubin continued to improve. Alk phos is normal. AST and ALT have improved. Albumin 2.4. Alkaline phosphatase 126. Total bilirubin 8.0. Direct bilirubin 6.05. Right upper quadrant sonogram ordered. Patient liver enzymes profile follow shock liver as transaminases have improved and total bili of increased but expected to stabilize and decrease. #8 DVT prophylaxis: SCDs. On apixaban Discharge preparation for long-term acute care as the patient needs hemodialysis, noninvasive ventilatory support including BiPAP/high flow oxygen. Discussed with the porter sample case and the body builder apprentice. Laboratory Results 06/26/18 05:28: Diff Path Review Reviewed 06/27/18 04:55: WBC 24.6 H, RBC 4.12 L, Hgb 12.0, Hct 35.6 L, MCV 86.4, MCH 29.1, MCHC 33.7, RDW 16.3 H, RDW Differential 47.2 H, Plt Count 174, MPV 11.9, Immature Gran % (Auto) 2.700 H, Neut % (Auto) 91.2 H, Lymph % (Auto) 2.2 L, [place] % (Auto) 3.8, Eos % (Auto) 0.0, Baso % (Auto) 0.1, Absolute Neuts (auto) 22.4 H, Absolute Lymphs (auto) 0.55 L, Total Counted Not Reportable, Diff Path Review May foll Active Medications Acetaminophen (Tylenol) 650 mg PO Q6H PRN PRN PRN Reason: PAIN Last Admin: 06/27/18 13:05 Dose: 650 mg Albuterol Sulfate (Ventolin Aerosols) 2.5 mg INHALATION Q2H PRN PRN PRN Reason: SHORTNESS OF BREATH Amiodarone HCl (Cordarone) 200 mg PO BID [facility] Last Admin: 06/27/18 09:14 Dose: 200 mg Apixaban (Eliquis) 2.5 mg PO BID [facility] Last Admin: 06/27/18 09:14 Dose: 2.5 mg Calamine/Phenol (Calmoseptine Ointment) 1 applic TOPICAL TID [facility]; Protocol Last Admin: 06/27/18 13:05 Dose: 1 applicatio Fentanyl Citrate (Sublimaze (100mcg Ampule)) 25 mcg IV Q2H PRN PRN PRN Reason: PAIN Last Admin: 06/24/18 00:37 Dose: 25 mcg Sodium Chloride () 250 mls @ 15 mls/hr IV .[id number] PRN PRN Reason: SALINE FLUSH Last Admin: 06/17/18 21:17 Dose: 15 mls/hr Ipratropium [place] (Atrovent) 0.5 mg INHALATION Q4H.RT PRN PRN Reason: SOB &/OR WHEEZING Methylprednisolone (Solu-Medrol) 40 mg IV Q12 [facility] Last Admin: 06/27/18 09:15 Dose: 40 mg Metoprolol Tartrate (Lopressor (Beta Princess)) 100 mg PO BID [facility] Last Admin: 06/27/18 09:14 Dose: 100 mg Nystatin (Nystatin) 500,000 unit PO Q6H [facility] Last Admin: 06/27/18 11:22 Dose: Not Given Nystatin/Triamcinolone Acetonide (Mycolog) 1 applic TOPICAL TID [facility]; Protocol Last Admin: 06/27/18 13:05 Dose: 1 applic Ondansetron HCl (Zofran) 4 mg IV Q8H PRN PRN PRN Reason: NAUSEA/VOMITING Last Admin: 06/24/18 18:22 Dose: 4 mg Pantoprazole Sodium (Protonix) 40 mg PO BID [facility] Last Admin: 06/27/18 09:14 Dose: 40 mg Quetiapine Fumarate (Seroquel) 25 mg PO BID [facility] Last Admin: 06/27/18 09:15 Dose: 25 mg Senna/Docusate Sodium (Senokot-S, Yanet-Colace) 2 tablet PO DAILY PRN PRN PRN Reason: CONSTIPATION Sodium Chloride () 5 - 15 ml IV UD PRN PRN Reason: SALINE FLUSH Last Admin: 06/26/18 21:32 Dose: 10 ml Sodium Chloride () 10 - 40 ml IV UD PRN PRN Reason: MULTILUMEN/HICMAN CATH FLUSH Last Admin: 06/27/18 09:15 Dose: 40 ml Sodium Polystyrene Sulfonate (Kayexalate) 15 gm PO X1 ONE Stop: 06/27/18 13:09 06/27/18 04:55: Sodium 136, Potassium 6.0 H*, Chloride 96 L, Carbon Dioxide 27.0, Anion Gap 13, BUN 75 H, Creatinine 4.65 H, Estim Creat Clear Calc 11.67, Est GFR (MDRD) Af Amer 13 L, Est GFR (MDRD) Non-Af 10 L, BUN/Creatinine Ratio 16.1, Glucose 105, Calcium 7.8 L, Total Bilirubin 6.80 H, Direct Bilirubin 5.45 H, AST 69 H, ALT 71 H, Alkaline Phosphatase 164 H, Total Protein 6.0 L, Albumin 2.2 L, Globulin 3.8 Code Visit Inpatient E&M: 72139 Subs Hosp L2
[2018-06-27] MEDS: Sodium Polystyrene Sulfonate 15 GM/60 ML UDC PO (18:34)
[2018-06-28] VITALS (22 sets, daily range): BP systolic 105–147; BP diastolic 68–100; PULSE 81–145; RESP 14–26; TEMP 36–37; O2SAT 92–98
[2018-06-28] MEDS: 0.9% NaCl Peripheral Flush Adult/Peds IV ×3 (05:34→05:37)
[2018-06-28] MEDS: Menthol/Lanolin/Calamine/Znox 113 GM Tube 1 APPLIC TOPICAL ×3 (06:26→22:38)
[2018-06-28] MEDS: Nystatin/Triamcin Cream Tube 1 APPLIC TOPICAL ×3 (06:26→22:39)
[2018-06-28 07:26] LABS: AST(SGOT) 58 U/L (15-37); Alanine Aminotransfer ALT/SGPT 56 U/L (13-56); Albumin, Serum 2.2 g/dL (3.2-5.0); Alkaline Phosphatase 178 U/L (45-117); Anion Gap 14 (5-15); BUN 125 mg/dL (7-18); BUN/Creat Ratio 20.7 RATIO (10-20); Bilirubin, Direct 4.79 mg/dL (0.00-0.30); Calcium,Total 7.8 mg/dL (8.5-10.1); Chloride 95 mmol/L (98-107); Creatinine, Serum 6.03 mg/dL (0.55-1.02); EST Glomerular Filtration Rate 8 mL/min (>60); Est Glom Filt Rate - Afr Amer 9 mL/min (>60); Globulin 3.8 g/dL (2.2-4.2); Glucose 112 mg/dL (74-106); Potassium 6.7 mmol/L (3.5-5.1); Sodium Level 131 mmol/L (136-145)
[2018-06-28] MEDS: Acetaminophen 325 MG Tablet 650 MG PO (11:42)
[2018-06-28] MEDS: Amiodarone 200 MG Tablet PO ×2 (11:42→22:40)
[2018-06-28] MEDS: Pantoprazole Sodium 40 MG Tablet PO (11:42)
[2018-06-28] MEDS: Metoprolol Tartrate 100 MG Tablet PO ×2 (11:42→22:40)
[2018-06-28] MEDS: QUEtiapine 25 MG Tablet PO (11:42)
--- NOTE | 2018-06-28 12:03 | CASEMGMT ---
This RN LAURA received call from Toya at [facility], [place] and pt's insurance, [employer], denied her for LTACH but they would like Dr. Medina to do a peer to peer at this time. Dr. Medina notified via [employer] at this time and this RN CM inquired if he is willing to do a peer to peer. SStvandana SHAFFER CM
--- NOTE | 2018-06-28 12:12 | PCM.PN.REN ---
Patient Problems: Active and Suspected Problems Severe sepsis (Acute) Acute respiratory failure with hypoxia (Acute) Pneumonia (Acute) Atrial fibrillation with RVR (Acute) LYNNETTE (acute kidney injury) (Acute) Problem with dialysis access (Acute) Subjective: patient continues to be resistant to full dialysis treatments. she either does not want to do any treatments or is unable to finish treatments once they are started. staff had to call her sister today to convince her to stay on dialysis for vocational adviser. K remains high - Physical Exam General: Alert, Oriented x3, Cooperative HEENT: Atraumatic, PERRLA, EOMI, Normocephalic Neck: Supple, No JVD, Negative Carotid Bruits Lungs: Clear to auscultation, Normal air movement Cardiovascular: Regular rate, No murmurs Abdomen: Bowel Sounds Present, Soft, Non Tender Extremities: No edema, Capillary Refill Less than 3 Seconds Skin: No rashes, No breakdown Musculoskeletal: No Tenderness to Palpation of Joints or Extremities Neurological: Cranial nerves II-XII grossly intact Psych/Mental Status: Normal Affect, Appropriate Vital Signs Temp Pulse Resp BP Pulse Ox 98.6 F 120 H 20 H 112/73 92 06/28/18 12:00 06/28/18 12:00 06/28/18 12:00 06/28/18 12:00 06/28/18 12:00 Oxygen Flow Rate (L/min) 5 Oxygen Delivery Method Nasal Cannula Weight: 106.9 kg Body Mass Index (BMI) 40.4 Intake and Output for Last 24 Hours 06/26/18 06/27/18 06/28/18 23:59 23:59 23:59 Intake Total 1242.7 / 1242.7 800 / 800 460 / 460 Output Total 3500 / 3500 1000 / 1000 Balance -2257.3 / -2257.3 800 / 800 -540 / -540 Laboratory Tests Past 24 Hrs 06/28/18 06:15 Sodium 131 L Potassium 6.7 H* Chloride 95 L Carbon Dioxide 22.0 Anion Gap 14 BUN 125 H* Creatinine 6.03 H Estim Creat Clear Calc 9.00 Est GFR (MDRD) Af Amer 9 L Est GFR (MDRD) Non-Af 8 L BUN/Creatinine Ratio 20.7 H Glucose 112 H Calcium 7.8 L Total Bilirubin 6.00 H Direct Bilirubin 4.79 H AST 58 H ALT 56 Alkaline Phosphatase 178 H Total Protein 6.0 L Albumin 2.2 L Globulin 3.8 Medical Necessity - Tobacco Use Smoking Status: Current every day smoker Tobacco Use: Cigarettes Assessment/Plan All Active Problems Severe sepsis (Acute) Acute respiratory failure with hypoxia (Acute) Pneumonia (Acute) Atrial fibrillation with RVR (Acute) LYNNETTE (acute kidney injury) (Acute) Problem with dialysis access (Acute) 1-Acute kidney injury. Most probably related to ischemic ATN Patient is currently dependent on dialysis for volume and metabolic support. Remains anuric. No recovery of kidney function. Dialysis started on June 17. 2-Acute respiratory failure from community-acquired pneumonia/Influenza A infection. Patient was extubated on June 20. better now 3-bilateral pneumonia/Influenza A infection. On antibiotics as per the ICU team. Plan continues to be resistant to do dialysis as per recommendations. we tried to involve the family to convince her. she says you guys are mean to me. tried to explain to her that she will need full treatments to clear toxins. on HD today 1 K initially followed by Leeann K aye
[2018-06-28 13:04] LABS: Pathologist Review Reviewed
--- NOTE | 2018-06-28 13:12 | PN.CARD_ITS ---
Subjectve: Patient seen and evaluated. Objective: Vital Signs Temp Pulse Resp BP Pulse Ox 98.6 F 120 H 20 H 112/73 92 06/28/18 12:00 06/28/18 12:00 06/28/18 12:00 06/28/18 12:00 06/28/18 12:00 Oxygen Flow Rate (L/min) 5 Oxygen Delivery Method Nasal Cannula Weight: 235 lb 10.786 oz Body Mass Index (BMI) 40.4 Intake and Output for Last 24 Hours 06/26/18 06/27/18 06/28/18 23:59 23:59 23:59 Intake Total 1242.7 / 1242.7 800 / 800 460 / 460 Output Total 3500 / 3500 1000 / 1000 Balance -2257.3 / -2257.3 800 / 800 -540 / -540 General: Awake, Alert, Oriented x 3 HEENT: PERRL, EOMI, Sclera Non Icteric Neck: Supple, Good ROM, No Lymph Node Enlargement Lungs: Clear to auscultation Cardiovascular: Irregular Rhythm, Normal S1, Normal S2, No Murmurs, No Rubs, No Gallops Vascular: No Carotid Bruits, Normal Femoral Pulses, Normal Radial Pulses, Normal Dorsalis Pedal Pulse, Normal Posterior Tibial Pulses Abdomen: Bowel Sounds Present, Soft, Non Tender, No HSM, No Organomegaly Extremities: No Cyanosis, No Clubbing, No edema Neurological: No Focal Motor or Sensory Deficit 06/28/18 06:15: Sodium 131 L, Potassium 6.7 H*, Chloride 95 L, Carbon Dioxide 22.0, Anion Gap 14, BUN 125 H*, Creatinine 6.03 H, Est GFR (MDRD) Af Amer 9 L, Est GFR (MDRD) Non-Af 8 L, BUN/Creatinine Ratio 20.7 H, Glucose 112 H, Calcium 7.8 L, Total Bilirubin 6.00 H, Direct Bilirubin 4.79 H Rhythm: EKG: ECHO: Stress Test: Cardiac Cath: PCI: CT Surgery: Holter monitor: EPS: PPM: CXR: Chest CT Scan: Medical Necessity - Tobacco Use Smoking Status: Current every day smoker Tobacco Use: Cigarettes Assessment/Plan 1. Atrial fibrillation * Patient presented with atrial fibrillation likely secondary to her lung condition. . * Echocardiogram done demonstrated mild to moderately globally reduced left ventricular systolic function. * We will switch over to Eliquis * I do not have any plans at this time for DC cardioversion however. We will continue her on amiodarone, beta-moris. Her heart rate at this time appears to be better controlled 2. Cardiopulmonary arrest * I suspect the above is on the basis of severe hypoxia as well as the bradycardia arrhythmia secondary to the beta-moris that the patient was receiving. * That appears to have resolved and currently patient is on supportive management with three-vasoactive agents. We will try and titrate to maintain a mean arterial pressure of 65 mmHg. 3. Lung consolidation * I suspect the above is on the basis of an infection and not a pulmonary embolism with pulmonary infarction. * * 4. Abnormal cardiac enzymes * Above is likely secondary to demand ischemia. * No further workup at this time 5. Acute renal insufficiency * The above is likely secondary to her septic state, hypotension and poor perfusion likely on an underlying baseline renal dysfunction. * Will continue with dialysis * We will continue to follow with you peripherally. * * Above discussed with hospitalist and nursing staff.
[2018-06-28] MEDS: Alteplase 2 MG/2 ML Vial IV (14:04)
--- NOTE | 2018-06-28 15:00 | CASEMGMT ---
Per Dr. Medina, insurance sounds like they are still going to deny pt for LTACH at this time but states that he gave them info to contact Dr. Chavez also at this time. This RN CM awaiting official denial from [employer]. Rabia SHAFFER CM
--- NOTE | 2018-06-28 15:22 | PCM.PN.HOSP ---
Patient Problems: Active and Suspected Problems Severe sepsis (Acute) Acute respiratory failure with hypoxia (Acute) Pneumonia (Acute) Atrial fibrillation with RVR (Acute) LYNNETTE (acute kidney injury) (Acute) Problem with dialysis access (Acute) Subjective: Patient is frustrated and does not want dialysis or want dialysis duration to be shortened. Patient is still dependent on BiPAP or high flow oxygen. Patient has thick blood oozing from dialysis catheter. Bleeding is controlled. Vitals/I&O's: Vital Signs Temp Pulse Resp BP Pulse Ox 98.2 F 108 H 20 H 124/92 H 92 06/28/18 14:00 06/28/18 15:00 06/28/18 14:00 06/28/18 14:00 06/28/18 14:00 Oxygen Flow Rate (L/min) 5 Oxygen Delivery Method Nasal Cannula Weight: 235 lb 10.786 oz Body Mass Index (BMI) 40.4 Intake and Output for Last 24 Hours 06/26/18 06/27/18 06/28/18 23:59 23:59 23:59 Intake Total 1242.7 / 1242.7 800 / 800 460 / 460 Output Total 3500 / 3500 1000 / 1000 Balance -2257.3 / -2257.3 800 / 800 -540 / -540 General: Alert, Oriented x3, Cooperative, - - Sometimes patient is lethargic and frustrated HEENT: Atraumatic, PERRLA, EOMI, Normocephalic Oral: Dry Mucosa Neck: Supple, No JVD, Negative Carotid Bruits Lungs: Diminished, Rhonchi, Short of Breath - On intermittent BiPAP and high flow oxygen, Tachypneic Cardiovascular: Normal S1, Normal S2, No murmurs, Irregular Rate Abdomen: Bowel Sounds Present, Soft, Non Tender, Non-Distended, - - Anuria. On hemodialysis Extremities: Capillary Refill Less than 3 Seconds, Edema Skin: No rashes, No breakdown Musculoskeletal: No Tenderness to Palpation of Joints or Extremities, Arthritic Changes, Muscle Wasting Neurological: Cranial nerves II-XII grossly intact Psych/Mental Status: Normal Affect, Appropriate Laboratory Results 06/27/18 04:55: Diff Path Review Reviewed 06/28/18 06:15: Sodium 131 L, Potassium 6.7 H*, Chloride 95 L, Carbon Dioxide 22.0, Anion Gap 14, BUN 125 H*, Creatinine 6.03 H, Estim Creat Clear Calc 9.00, Est GFR (MDRD) Af Amer 9 L, Est GFR (MDRD) Non-Af 8 L, BUN/Creatinine Ratio 20.7 H, Glucose 112 H, Calcium 7.8 L, Total Bilirubin 6.00 H, Direct Bilirubin 4.79 H, AST 58 H, ALT 56, Alkaline Phosphatase 178 H, Total Protein 6.0 L, Albumin 2.2 L, Globulin 3.8 Current Medications Acetaminophen (Tylenol) 650 mg PO Q6H PRN PRN PRN Reason: PAIN Last Admin: 06/28/18 11:42 Dose: 650 mg Albuterol Sulfate (Ventolin Aerosols) 2.5 mg INHALATION Q2H PRN PRN PRN Reason: SHORTNESS OF BREATH Amiodarone HCl (Cordarone) 200 mg PO BID REPLACED BY [facility] Last Admin: 06/28/18 11:42 Dose: 200 mg Calamine/Phenol (Calmoseptine Ointment) 1 applic TOPICAL TID REPLACED BY [facility]; Protocol Last Admin: 06/28/18 11:43 Dose: 1 applicatio Fentanyl Citrate (Sublimaze (100mcg Ampule)) 25 mcg IV Q2H PRN PRN PRN Reason: PAIN Last Admin: 06/24/18 00:37 Dose: 25 mcg Sodium Chloride () 250 mls @ 15 mls/hr IV .[id number] PRN PRN Reason: SALINE FLUSH Last Admin: 06/17/18 21:17 Dose: 15 mls/hr Ipratropium [place] (Atrovent) 0.5 mg INHALATION Q4H.RT PRN PRN Reason: SOB &/OR WHEEZING Methylprednisolone (Solu-Medrol) 40 mg IV Q12 REPLACED BY [facility] Last Admin: 06/28/18 11:42 Dose: 40 mg Metoprolol Tartrate (Lopressor (Beta Princess)) 100 mg PO BID REPLACED BY [facility] Last Admin: 06/28/18 11:42 Dose: 100 mg Nystatin (Nystatin) 500,000 unit PO Q6H REPLACED BY [facility] Last Admin: 06/28/18 11:43 Dose: Not Given Nystatin/Triamcinolone Acetonide (Mycolog) 1 applic TOPICAL TID REPLACED BY [facility]; Protocol Last Admin: 06/28/18 11:43 Dose: 1 applic Ondansetron HCl (Zofran) 4 mg IV Q8H PRN PRN PRN Reason: NAUSEA/VOMITING Last Admin: 06/24/18 18:22 Dose: 4 mg Pantoprazole Sodium (Protonix) 40 mg PO BID REPLACED BY [facility] Last Admin: 06/28/18 11:42 Dose: 40 mg Quetiapine Fumarate (Seroquel) 25 mg PO BID REPLACED BY [facility] Last Admin: 06/28/18 11:42 Dose: 25 mg Senna/Docusate Sodium (Senokot-S, [place]et-Colace) 2 tablet PO DAILY PRN PRN PRN Reason: CONSTIPATION Sodium Chloride () 5 - 15 ml IV UD PRN PRN Reason: SALINE FLUSH Last Admin: 06/28/18 05:37 Dose: 10 ml Sodium Chloride () 10 - 40 ml IV UD PRN PRN Reason: MULTILUMEN/HICMAN CATH FLUSH Last Admin: 06/27/18 22:48 Dose: 40 ml Medical Necessity - Tobacco Use Smoking Status: Current every day smoker Tobacco Use: Cigarettes Assessment/Plan All Active Problems Severe sepsis (Acute) Acute respiratory failure with hypoxia (Acute) Pneumonia (Acute) Atrial fibrillation with RVR (Acute) LYNNETTE (acute kidney injury) (Acute) Problem with dialysis access (Acute) This is a 58 years old female patient who is being admitted to ICU from ER because of shortness of breath, cough and fever, found to have multilobar community-acquired pneumonia complicated by septic shock and her hospital course complicated by cardiac arrest status post CPR, A. fib with RVR, acute renal failure requiring hemodialysis as well as elevated LFTs secondary to shock liver. On 06/22, she went back into A. fib with RVR, received 1 dose of IV amiodarone and now on IV Cardizem drip. #1 septic shock with multiorgan failure secondary to severe community-acquired pneumonia status post cardiac arrest: Blood pressure is maintained, remained in A. fib with RVR, uncontrolled. She has been afebrile. She is on IV steroids. Sputum culture revealed Streptococcus pneumoniae. Blood cultures showed no growth in 48 hours. Urine culture showed no growth. Respiratory panel for viruses came back positive for influenza A. Antibiotics are discontinued Patient has slow oozing/bleeding from dialysis catheter: This is started in the evening yesterday but is now controlled. Eliquis was temporarily held and is now resumed. H&H is stable, .6. Monitor CBC and BMP. #2 new onset A. fib with RVR/indeterminate troponin: IV Cardizem and IV amiodarone drip discontinued; heart rate still 40%, mild to moderate global hypokinesis of the left ventricle. Cardiology on the case. No plan for cardiac catheter or invasive procedure. No plan for DC cardioversion. #3 acute streptococcal multilobar community-acquired pneumonia: Completed his Levaquin on 06/24/2018. Sputum culture revealed Streptococcus pneumoniae. Blood culture showed no growth in 48 hours. Urine cultures negative. #4 status post cardiac arrest x2: Attributed to new onset A. fib with RVR that is likely precipitated by pneumonia. Her troponin are minimally elevated. EKG revealed no acute ischemic changes. Echocardiogram reviewed as above. At this time, no evidence of acute CHF. #5 acute hypoxic and hypercapnic respiratory failure: Secondary to pneumonia. Status post extubation, remains on BiPAP continuously, nursing staff reported desaturation without BiPAP. #6 acute renal failure/mild hyperkalemia from ATN; hemodialysis dependent: Patient is still has minimal urine output; mainly an Anuric on dialysis which seems to be permanent. Plan for dialysis as per Nephrology recommendation. #7 shock liver: Secondary to septic shock. Liver transaminases as well as total bilirubin continued to improve. Alk phos is normal. AST and ALT have improved. Albumin 2.4. Alkaline phosphatase 126. Total bilirubin 8.0. Direct bilirubin 6.05. Right upper quadrant sonogram ordered. Patient liver enzymes profile follow shock liver as transaminases have improved and total bili of increased but expected to stabilize and decrease. #8 DVT prophylaxis: SCDs. On apixaban Discharge preparation for long-term acute care as the patient needs hemodialysis, noninvasive ventilatory support including BiPAP/high flow oxygen. Discussed with the test case developer and the advisory application developer. Initially, LTAC is denied and wanted one-to-one peer discussion. Discussed with the doctor for 1-1 peer review and any wanted to further confirm with advisory application developer, Dr. Chavez. Try to convince him for the need of LTAC. Decision is still pending. Laboratory Results 06/27/18 04:55: Diff Path Review Reviewed 06/28/18 06:15: Sodium 131 L, Potassium 6.7 H*, Chloride 95 L, Carbon Dioxide 22.0, Anion Gap 14, BUN 125 H*, Creatinine 6.03 H, Estim Creat Clear Calc 9.00, Est GFR (MDRD) Af Amer 9 L, Est GFR (MDRD) Non-Af 8 L, BUN/Creatinine Ratio 20.7 H, Glucose 112 H, Calcium 7.8 L, Total Bilirubin 6.00 H, Direct Bilirubin 4.79 H, AST 58 H, ALT 56, Alkaline Phosphatase 178 H, Total Protein 6.0 L, Albumin 2.2 L, Globulin 3.8 Code Visit Inpatient E&M: 58506 Subs Hosp L3
[2018-06-28] MEDS: APIXABAN 2.5 MG TABLET PO (22:39)
--- NOTE | 2018-06-28 22:40 | NURSING ---
This nurse gave patient oral medications per doctors orders. Patient was given applesauce by itself, she initially refused to swallow. With encouragement she swallowed and tolerated well. Patient was give three oral medications individually, she tolerated this well with encouragement as well. Patient stuck tongue out and started to blow applesauce and medication out of mouth. With encouragement she swallowed both without any coughing, choking or difficulties.
[2018-06-29] VITALS (27 sets, daily range): BP systolic 92–136; BP diastolic 62–96; PULSE 86–160; RESP 14–34; TEMP 35.5–36.6; O2SAT 91–99
[2018-06-29] MEDS: Nystatin/Triamcin Cream Tube 1 APPLIC TOPICAL ×3 (05:01→23:16)
[2018-06-29] MEDS: Menthol/Lanolin/Calamine/Znox 113 GM Tube 1 APPLIC TOPICAL ×3 (05:02→23:13)
[2018-06-29 06:28] LABS: Absolute Lymphocyte Count 1.01 X10^3/ul (0.83-4.51); Absolute Neutrophil Count 17.9 X10^3/uL (2.0-7.7); Basophil# 0.04 X10^3/uL; Basophil% 0.2 % (0-1); Hemoglobin 12.1 g/dl (12.0-15.0); Lymphocyte # 1.01 X10^3/ul (4.0); Lymphocyte % 5.2 % (19-41); Mean Corp Hgb Conc 33.6 g/gl (32-36); Mean Corpuscular Hgb 28.7 pg (27.0-32.0); Mean Corpuscular Volume 85.5 fL (81-99); Mean Platelet Vol. 12.4 fl (6.2-12.0); Monocyte% 1.5 % (0-10); Neutrophil # 17.87 X10^3/uL (2.7-7.7); Neutrophil % 91.8 % (47-70); Platelet Count 183 K/mm3 (150-450); RBC Distribution Width CV 16.4 % (11.6-14.6); RBC Distribution Width SD 48.3 fl (35.1-43.9); Red Blood Count 4.21 M/mm3 (4.2-5.4); White Blood Count 19.5 K/mm3 (4.4-11.0)
[2018-06-29 06:29] LABS: POSITIVE COUNT NO; POSITIVE DIFFERENTIAL NO; POSITIVE MORPHOLOGY NO
[2018-06-29 06:45] LABS: Anion Gap 14 (5-15); BUN 106 mg/dL (7-18); BUN/Creat Ratio 21.3 RATIO (10-20); Calcium,Total 7.9 mg/dL (8.5-10.1); Chloride 95 mmol/L (98-107); Creatinine, Serum 4.97 mg/dL (0.55-1.02); EST Glomerular Filtration Rate 10 mL/min (>60); Est Glom Filt Rate - Afr Amer 12 mL/min (>60); Estimated Creatinine Clearance 10.91 ml/min; Glucose 103 mg/dL (74-106); Potassium 6.3 mmol/L (3.5-5.1); Sodium Level 136 mmol/L (136-145)
--- NOTE | 2018-06-29 09:56 | PN.CARD_ITS ---
Subjectve: Patient seen and evaluated. Appears to be doing well. No complaints Objective: Vital Signs Temp Pulse Resp BP Pulse Ox 97.7 F L 96 24 H 129/94 H 97 06/29/18 07:54 06/29/18 07:58 06/29/18 07:58 06/29/18 07:54 06/29/18 07:58 Oxygen Flow Rate (L/min) 14 Oxygen Delivery Method Bi-pap Weight: 235 lb 3.732 oz Body Mass Index (BMI) 40.4 Intake and Output for Last 24 Hours 06/27/18 06/28/18 06/29/18 23:59 23:59 23:59 Intake Total 800 / 800 920 / 920 40 / Output Total 1000 / 1000 Balance 800 / 800 -80 / -80 General: Awake, Alert, Oriented x 3 HEENT: PERRL, EOMI, Sclera Non Icteric Neck: Supple, Good ROM, No Lymph Node Enlargement Lungs: Clear to auscultation Cardiovascular: Regular Rhythm, Normal S1, Normal S2, No Murmurs, No Rubs, No Gallops Vascular: No Carotid Bruits, Normal Femoral Pulses, Normal Radial Pulses, Normal Dorsalis Pedal Pulse, Normal Posterior Tibial Pulses Abdomen: Bowel Sounds Present, Soft, Non Tender, No HSM, No Organomegaly Extremities: No Cyanosis, No Clubbing, No edema Musculoskeletal: No Erythema Lymphatic: No Lymph Node Enlargement Neurological: No Focal Motor or Sensory Deficit 06/29/18 05:55: WBC 19.5 H, RBC 4.21, Hgb 12.1, Hct 36.0 L, MCV 85.5, MCH 28.7, MCHC 33.6, RDW 16.4 H, RDW Differential 48.3 H, Plt Count 183, MPV 12.4 H, Immature Gran % (Auto) 1.300 H, Neut % (Auto) 91.8 H, Lymph % (Auto) 5.2 L, [place] % (Auto) 1.5, Eos % (Auto) 0.0, Baso % (Auto) 0.2, Absolute Neuts (auto) 17.9 H, Total Counted Not Reportable 06/29/18 05:55: Sodium 136, Potassium 6.3 H*, Chloride 95 L, Carbon Dioxide 27.0, Anion Gap 14, BUN 106 H*, Creatinine 4.97 H, Est GFR (MDRD) Af Amer 12 L, Est GFR (MDRD) Non-Af 10 L, BUN/Creatinine Ratio 21.3 H, Glucose 103, Calcium 7.9 L Rhythm: EKG: ECHO: Stress Test: Cardiac Cath: PCI: CT Surgery: Holter monitor: EPS: PPM: CXR: Chest CT Scan: Medical Necessity - Tobacco Use Smoking Status: Current every day smoker Tobacco Use: Cigarettes Assessment/Plan 1. Atrial fibrillation * Patient presented with atrial fibrillation likely secondary to her lung condition. . * Echocardiogram done demonstrated mild to moderately globally reduced left ventricular systolic function. * We will continue Eliquis * I do not have any plans at this time for DC cardioversion however. We will continue her on amiodarone, beta-moris. Her heart rate at this time appears to be better controlled 2. Cardiopulmonary arrest * I suspect the above is on the basis of severe hypoxia as well as the bradycardia arrhythmia secondary to the beta-moris that the patient was receiving. * That appears to have resolved and currently patient is on supportive management with three-vasoactive agents. We will try and titrate to maintain a mean arterial pressure of 65 mmHg. 3. Lung consolidation * I suspect the above is on the basis of an infection and not a pulmonary embolism with pulmonary infarction. * * 4. Abnormal cardiac enzymes * Above is likely secondary to demand ischemia. * No further workup at this time 5. Acute renal insufficiency * The above is likely secondary to her septic state, hypotension and poor perfusion likely on an underlying baseline renal dysfunction. * Will continue with dialysis * We will continue to follow with you peripherally. * * Above discussed with hospitalist and nursing staff.
--- NOTE | 2018-06-29 10:59 | PCM.PN.HOSP ---
Patient Problems: Active and Suspected Problems Severe sepsis (Acute) Acute respiratory failure with hypoxia (Acute) Pneumonia (Acute) Atrial fibrillation with RVR (Acute) LYNNETTE (acute kidney injury) (Acute) Problem with dialysis access (Acute) Subjective: Patient heart rate is better controlled. Sometimes in 100 otherwise in 80s or 90s. Patient is frustrated. LTAC was declined even after1:1 review with [place] physician with me and Dr. Chavez. publicity manager to work on SNF placement. Patient had hyperkalemia in the morning; K6.3. Objective: General: Alert, Oriented x3, Cooperative, - - Sometimes patient is lethargic and frustrated HEENT: Atraumatic, PERRLA, EOMI, Normocephalic Oral: Dry Mucosa Neck: Supple, No JVD, Negative Carotid Bruits Lungs: Air entry diminished bilaterally, Rhonchi, Short of Breath - On intermittent BiPAP and high flow oxygen, Cardiovascular: Normal S1, Normal S2, No murmurs, Irregular Rate Abdomen: Bowel Sounds Present, Soft, Non Tender, Non-Distended,Anuria. On hemodialysis Extremities: Capillary Refill Less than 3 Seconds, Edema Skin: No rashes, No breakdown Musculoskeletal: No Tenderness to Palpation of Joints or Extremities, Arthritic Changes, Muscle Wasting Neurological: Cranial nerves II-XII grossly intact Psych/Mental Status: Normal Affect, Appropriate Vitals/I&O's: Vital Signs Temp Pulse Resp BP Pulse Ox 97.7 F L 89 34 H 129/94 H 92 06/29/18 07:54 06/29/18 09:30 06/29/18 09:30 06/29/18 07:54 06/29/18 10:28 Oxygen Flow Rate (L/min) 5 Oxygen Delivery Method Nasal Cannula Weight: 235 lb 3.732 oz Body Mass Index (BMI) 40.4 Intake and Output for Last 24 Hours 06/27/18 06/28/18 06/29/18 23:59 23:59 23:59 Intake Total 800 / 800 920 / 920 40 / 40 Output Total 1000 / 1000 Balance 800 / 800 -80 / -80 40 / 40 Laboratory Results 06/27/18 04:55: Diff Path Review Reviewed 06/29/18 05:55: WBC 19.5 H, RBC 4.21, Hgb 12.1, Hct 36.0 L, MCV 85.5, MCH 28.7, MCHC 33.6, RDW 16.4 H, RDW Differential 48.3 H, Plt Count 183, MPV 12.4 H, Immature Gran % (Auto) 1.300 H, Neut % (Auto) 91.8 H, Lymph % (Auto) 5.2 L, [place] % (Auto) 1.5, Eos % (Auto) 0.0, Baso % (Auto) 0.2, Absolute Neuts (auto) 17.9 H, Absolute Lymphs (auto) 1.01, Total Counted Not Reportable 06/29/18 05:55: Sodium 136, Potassium 6.3 H*, Chloride 95 L, Carbon Dioxide 27.0, Anion Gap 14, BUN 106 H*, Creatinine 4.97 H, Estim Creat Clear Calc 10.91, Est GFR (MDRD) Af Amer 12 L, Est GFR (MDRD) Non-Af 10 L, BUN/Creatinine Ratio 21.3 H, Glucose 103, Calcium 7.9 L Current Medications Acetaminophen (Tylenol) 650 mg PO Q6H PRN PRN PRN Reason: PAIN Last Admin: 06/28/18 11:42 Dose: 650 mg Albuterol Sulfate (Ventolin Aerosols) 2.5 mg INHALATION Q2H PRN PRN PRN Reason: SHORTNESS OF BREATH Amiodarone HCl (Cordarone) 200 mg PO BID [facility] Last Admin: 06/29/18 07:49 Dose: Not Given Apixaban (Eliquis) 2.5 mg PO BID [facility] Last Admin: 06/29/18 07:49 Dose: Not Given Calamine/Phenol (Calmoseptine Ointment) 1 applic TOPICAL TID [facility]; Protocol Last Admin: 06/29/18 05:02 Dose: 1 applicatio Fentanyl Citrate (Sublimaze (100mcg Ampule)) 25 mcg IV Q2H PRN PRN PRN Reason: PAIN Last Admin: 06/24/18 00:37 Dose: 25 mcg Sodium Chloride () 250 mls @ 15 mls/hr IV .[id number] PRN PRN Reason: SALINE FLUSH Last Admin: 06/17/18 21:17 Dose: 15 mls/hr Ipratropium [place] (Atrovent) 0.5 mg INHALATION Q4H.RT PRN PRN Reason: SOB &/OR WHEEZING Methylprednisolone (Solu-Medrol) 40 mg IV Q12 [facility] Last Admin: 06/29/18 07:50 Dose: Not Given Metoprolol Tartrate (Lopressor (Beta Princess)) 100 mg PO BID [facility] Last Admin: 06/29/18 07:49 Dose: Not Given Nystatin (Nystatin) 500,000 unit PO Q6H [facility] Last Admin: 06/29/18 05:01 Dose: Not Given Nystatin/Triamcinolone Acetonide (Mycolog) 1 applic TOPICAL TID [facility]; Protocol Last Admin: 06/29/18 05:01 Dose: 1 applic Ondansetron HCl (Zofran) 4 mg IV Q8H PRN PRN PRN Reason: NAUSEA/VOMITING Last Admin: 06/24/18 18:22 Dose: 4 mg Pantoprazole Sodium (Protonix) 40 mg PO BID [facility] Last Admin: 06/29/18 07:50 Dose: Not Given Quetiapine Fumarate (Seroquel) 25 mg PO BID [facility] Last Admin: 06/29/18 07:50 Dose: Not Given Senna/Docusate Sodium (Senokot-S, [place]-Colace) 2 tablet PO DAILY PRN PRN PRN Reason: CONSTIPATION Sodium Chloride () 5 - 15 ml IV UD PRN PRN Reason: SALINE FLUSH Last Admin: 06/28/18 05:37 Dose: 10 ml Sodium Chloride () 10 - 40 ml IV UD PRN PRN Reason: MULTILUMEN/HICMAN CATH FLUSH Last Admin: 06/29/18 05:54 Dose: 40 ml Medical Necessity - Tobacco Use Smoking Status: Current every day smoker Tobacco Use: Cigarettes Assessment/Plan All Active Problems Severe sepsis (Acute) Acute respiratory failure with hypoxia (Acute) Pneumonia (Acute) Atrial fibrillation with RVR (Acute) LYNNETTE (acute kidney injury) (Acute) Problem with dialysis access (Acute) This is a 58 years old female patient who is being admitted to ICU from ER because of shortness of breath, cough and fever, found to have multilobar community-acquired pneumonia complicated by septic shock and her hospital course complicated by cardiac arrest status post CPR, A. fib with RVR, acute renal failure requiring hemodialysis as well as elevated LFTs secondary to shock liver. On 06/22, she went back into A. fib with RVR, received 1 dose of IV amiodarone and now on IV Cardizem drip. #1 septic shock with multiorgan failure secondary to severe community-acquired pneumonia status post cardiac arrest: Blood pressure is maintained, remained in A. fib with RVR, uncontrolled. She has been afebrile. She is on IV steroids. Sputum culture revealed Streptococcus pneumoniae. Blood cultures showed no growth in 48 hours. Urine culture showed no growth. Respiratory panel for viruses came back positive for influenza A. Antibiotics are discontinued Patient has slow oozing/bleeding from dialysis catheter: This is started in the evening yesterday but is now controlled. Eliquis was temporarily held and is now resumed. H&H is stable, .6. Monitor CBC and BMP. #2 new onset A. fib with RVR/indeterminate troponin: IV Cardizem and IV amiodarone drip discontinued; heart rate still 40%, mild to moderate global hypokinesis of the left ventricle. Cardiology on the case. No plan for cardiac catheter or invasive procedure. No plan for DC cardioversion. #3 acute streptococcal multilobar community-acquired pneumonia: Completed his Levaquin on 06/24/2018. Sputum culture revealed Streptococcus pneumoniae. Blood culture showed no growth in 48 hours. Urine cultures negative. #4 status post cardiac arrest x2: Attributed to new onset A. fib with RVR that is likely precipitated by pneumonia. Her troponin are minimally elevated. EKG revealed no acute ischemic changes. Echocardiogram reviewed as above. At this time, no evidence of acute CHF. #5 acute hypoxic and hypercapnic respiratory failure: Secondary to pneumonia. Status post extubation, remains on BiPAP continuously, nursing staff reported desaturation without BiPAP. #6 acute renal failure/mild hyperkalemia from ATN; hemodialysis dependent: It is still having hyperkalemia and wanted to cut short the duration of dialysis. Patient is still has minimal urine output; mainly an Anuric on dialysis which seems to be permanent. Plan for dialysis as per Nephrology recommendation. #7 shock liver: Secondary to septic shock. Liver transaminases as well as total bilirubin continued to improve. Alk phos is normal. AST and ALT have improved. Albumin 2.4. Alkaline phosphatase 126. Total bilirubin 8.0. Direct bilirubin 6.05. Right upper quadrant sonogram ordered. Patient liver enzymes profile follow shock liver as transaminases have improved and total bili of increased but expected to stabilize and decrease. #8 DVT prophylaxis: SCDs. On apixaban Discharge preparation for long-term acute care as the patient needs hemodialysis, noninvasive ventilatory support including BiPAP/high flow oxygen. Discussed with the caser up and the sand hauler. Initially, LTAC is denied and wanted one-to-one peer discussion. Discussed with the doctor for 1-1 peer review and and the physician also talked to Dr. Chavez. LTAC is declined. We will try for SNF placement Laboratory Results 06/27/18 04:55: Diff Path Review Reviewed 06/28/18 06:15: Sodium 131 L, Potassium 6.7 H*, Chloride 95 L, Carbon Dioxide 22.0, Anion Gap 14, BUN 125 H*, Creatinine 6.03 H, Estim Creat Clear Calc 9.00, Est GFR (MDRD) Af Amer 9 L, Est GFR (MDRD) Non-Af 8 L, BUN/Creatinine Ratio 20.7 H, Glucose 112 H, Calcium 7.8 L, Total Bilirubin 6.00 H, Direct Bilirubin 4.79 H, AST 58 H, ALT 56, Alkaline Phosphatase 178 H, Total Protein 6.0 L, Albumin 2.2 L, Globulin 3.8 Code Visit Inpatient E&M: [id number] Subs Hosp L3
--- NOTE | 2018-06-29 11:45 | RAD_ITS ---
STUDY: X-RAY CHEST REASON FOR EXAM: Female, 58 years old. Shortness of breath with chest pain TECHNIQUE: PA and lateral views of the chest. COMPARISON: 06/19/2018 FINDINGS: Endotracheal and enteric tubes have been removed. Left jugular central venous catheter and right jugular dialysis catheter are stable. Decreased pleural and parenchymal opacity at the right lung base compared to the prior study. Minimal blunting of the left costophrenic angle. There is mild cardiac enlargement. Normal mediastinum and mary. Normal visualized pulmonary arteries. There is atherosclerotic calcification of the aortic arch with tortuosity. There is demineralization of the osseous structures. Normal visualized ribs, clavicles, and shoulders. There is no demonstrated abnormality of the visualized soft tissue structures of the upper abdomen. RAD/Chest PA and Lateral IMPRESSION: 1. Favorable change. Persistent but decreased right pleural effusion (small to moderate on current exam) and pulmonary infiltrate/atelectasis. 2. Trace left pleural fluid Electronically Signed: Alejandro Arizmendi MD at 12:06 EST , Service support ,
--- NOTE | 2018-06-29 17:30 | PN.RENAL_ITS ---
Patient Problems: Active and Suspected Problems Severe sepsis (Acute) Acute respiratory failure with hypoxia (Acute) Pneumonia (Acute) Atrial fibrillation with RVR (Acute) LYNNETTE (acute kidney injury) (Acute) Problem with dialysis access (Acute) Subjective: Patient is awake alert oriented. Patient is going to be dialyzed today for hyperkalemia. No nausea no vomiting no shortness of breath - Physical Exam General: Alert, Oriented x3 HEENT: Atraumatic Neck: Supple, No JVD Lungs: Clear to auscultation, Normal air movement, No rhonchi, No wheeze Cardiovascular: Regular rate, Regular Rhythm, Normal S1, Normal S2 Abdomen: Bowel Sounds Present, Soft, Non Tender Extremities: No clubbing, No cyanosis, No edema Skin: No rashes Musculoskeletal: No Tenderness to Palpation of Joints or Extremities Lymphatic: No Cervical, Supraclavicular, or Inguinal Adenopathy Neurological: Cranial nerves II-XII grossly intact, Neuro grossly intact Psych/Mental Status: Appropriate Vital Signs Temp Pulse Resp BP Pulse Ox 97.6 F L 104 H 24 H 126/85 H 94 06/29/18 16:55 06/29/18 16:57 06/29/18 16:57 06/29/18 16:55 06/29/18 16:55 Oxygen Flow Rate (L/min) 5 Oxygen Delivery Method Nasal Cannula Weight: 106.7 kg Body Mass Index (BMI) 40.4 Intake and Output for Last 24 Hours 06/27/18 06/28/18 06/29/18 23:59 23:59 23:59 Intake Total 800 / 800 920 / 920 400 / 400 Output Total 1000 / 1000 Balance 800 / 800 -80 / -80 400 / 400 Laboratory Tests Past 24 Hrs 06/29/18 06/29/18 05:55 05:55 WBC 19.5 H RBC 4.21 Hgb 12.1 Hct 36.0 L MCV 85.5 MCH 28.7 MCHC 33.6 RDW 16.4 H RDW Differential 48.3 H Plt Count 183 MPV 12.4 H Immature Gran % (Auto) 1.300 H Neut % (Auto) 91.8 H Lymph % (Auto) 5.2 L [place] % (Auto) 1.5 Eos % (Auto) 0.0 Baso % (Auto) 0.2 Absolute Neuts (auto) 17.9 H Absolute Lymphs (auto) 1.01 Total Counted Not Reportable Sodium 136 Potassium 6.3 H* Chloride 95 L Carbon Dioxide 27.0 Anion Gap 14 BUN 106 H* Creatinine 4.97 H Estim Creat Clear Calc 10.91 Est GFR (MDRD) Af Amer 12 L Est GFR (MDRD) Non-Af 10 L BUN/Creatinine Ratio 21.3 H Glucose 103 Calcium 7.9 L Medical Necessity - Tobacco Use Smoking Status: Current every day smoker Tobacco Use: Cigarettes Assessment/Plan All Active Problems Severe sepsis (Acute) Acute respiratory failure with hypoxia (Acute) Pneumonia (Acute) Atrial fibrillation with RVR (Acute) LYNNETTE (acute kidney injury) (Acute) Problem with dialysis access (Acute) 1-Acute kidney injury. Most probably related to ischemic ATN Patient is currently dependent on dialysis for volume and metabolic support. Remains anuric.No recovery of kidney function. Dialysis started on June 17. She has not been compliant with the hemodialysis sessions. I explained the patient the necessity of finishing hemodialysis sessions. Will arrange for hemodialysis session today for 2-1/2 hours, with 1K dialysate Please keep mean arterial pressure more than 65. Avoid nephrotoxic. I will continue to monitor for kidney function recovery 2-Acute respiratory failure from community-acquired pneumonia/Influenza A infection. Extubated. Currently on nasal cannula Renal team will continue to follow. Please call with any question or concern Aaliyah Muñoz MD [phone]
[2018-06-29] MEDS: Metoprolol Tartrate 5 MG/5 ML Vial IV (18:36)
[2018-06-29] MEDS: Amiodarone 200 MG Tablet PO ×2 (18:38→23:14)
[2018-06-29] MEDS: Metoprolol Tartrate 100 MG Tablet PO (19:06)
[2018-06-29] MEDS: Heparin 10,000 UNITS/10 ML Vial IV (20:23)
--- NOTE | 2018-06-29 20:25 | DIALYSIS ---
Hemodialysis x 2.5 hours on 1K bath completed. BP stable t/o. -1000 ml off. Pt became tachycardic during hd tx. She becomes upset and needs much encouragement with dialysis. Report to Jagruti at bedside.
[2018-06-29] MEDS: QUEtiapine 25 MG Tablet PO (23:14)
[2018-06-29] MEDS: Pantoprazole Sodium 40 MG Tablet PO (23:14)
[2018-06-29] MEDS: APIXABAN 2.5 MG TABLET PO (23:15)
[2018-06-29] MEDS: Acetaminophen 325 MG Tablet 650 MG PO (23:15)
[2018-06-29] MEDS: 0.9% NaCl Peripheral Flush Adult/Peds IV (23:21)
[2018-06-30] VITALS (22 sets, daily range): BP systolic 122–142; BP diastolic 75–95; PULSE 64–117; RESP 14–23; TEMP 36.1–36.2; O2SAT 93–97
[2018-06-30] MEDS: Metoprolol Tartrate 50 MG Tablet PO (01:21)
[2018-06-30] MEDS: Nystatin/Triamcin Cream Tube 1 APPLIC TOPICAL ×3 (06:43→21:17)
[2018-06-30] MEDS: Menthol/Lanolin/Calamine/Znox 113 GM Tube 1 APPLIC TOPICAL ×3 (06:43→21:17)
--- NOTE | 2018-06-30 09:45 | PCM.PN.CARD ---
Subjectve: Patient seen and evaluated and appears to be stable. Objective: Vital Signs Temp Pulse Resp BP Pulse Ox 97.0 F L 99 23 H 126/82 H 95 06/30/18 06:00 06/30/18 08:25 06/30/18 08:25 06/30/18 06:00 06/30/18 09:12 Oxygen Flow Rate (L/min) 5 Oxygen Delivery Method Nasal Cannula Weight: 234 lb 9.149 oz Body Mass Index (BMI) 40.4 Intake and Output for Last 24 Hours 06/28/18 06/29/18 06/30/18 23:59 23:59 23:59 Intake Total 920 / 920 520 / 520 30 / 30 Output Total 1000 / 1000 1000 / 1000 0 / 0 Balance -80 / -80 -480 / -480 30 / 30 General: Awake, Alert, Oriented x 3 HEENT: PERRL, EOMI, Sclera Non Icteric Neck: Supple, Good ROM, No Lymph Node Enlargement Lungs: Clear to auscultation Cardiovascular: Irregular Rhythm, Normal S1, Normal S2, No Murmurs, No Rubs, No Gallops Vascular: No Carotid Bruits, Normal Femoral Pulses, Normal Radial Pulses, Normal Dorsalis Pedal Pulse, Normal Posterior Tibial Pulses Abdomen: Bowel Sounds Present, Soft, Non Tender, No HSM, No Organomegaly Extremities: No Cyanosis, No Clubbing, No edema Lymphatic: No Lymph Node Enlargement Neurological: No Focal Motor or Sensory Deficit Psych/Mental Status: Appropriate Rhythm: EKG: ECHO: Stress Test: Cardiac Cath: PCI: CT Surgery: Holter monitor: EPS: PPM: CXR: Chest CT Scan: Medical Necessity - Tobacco Use Smoking Status: Current every day smoker Tobacco Use: Cigarettes Assessment/Plan 1. Atrial fibrillation Patient presented with atrial fibrillation likely secondary to her lung condition. . Echocardiogram done demonstrated mild to moderately globally reduced left ventricular systolic function. We will continue Eliqujenae I do not have any plans at this time for DC cardioversion however. We will continue her on amiodarone, beta-moris. Her heart rate at this time appears to be better controlled 2. Cardiopulmonary arrest I suspect the above is on the basis of severe hypoxia as well as the bradycardia arrhythmia secondary to the beta-moris that the patient was receiving. That appears to have resolved and currently patient is on supportive management with three-vasoactive agents. We will try and titrate to maintain a mean arterial pressure of 65 mmHg. 3. Lung consolidation I suspect the above is on the basis of an infection and not a pulmonary embolism with pulmonary infarction. 4. Abnormal cardiac enzymes Above is likely secondary to demand ischemia. No further workup at this time 5. Acute renal insufficiency The above is likely secondary to her septic state, hypotension and poor perfusion likely on an underlying baseline renal dysfunction. Will continue with dialysis We will continue to follow with you peripherally. From the cardiac standpoint the patient can be monitored as an outpatient
--- NOTE | 2018-06-30 09:49 | PN.CARD_ITS ---
Subjectve: Patient seen and evaluated and appears to be stable. Objective: Vital Signs Temp Pulse Resp BP Pulse Ox 97.0 F L 99 23 H 126/82 H 95 06/30/18 06:00 06/30/18 08:25 06/30/18 08:25 06/30/18 06:00 06/30/18 09:12 Oxygen Flow Rate (L/min) 5 Oxygen Delivery Method Nasal Cannula Weight: 234 lb 9.149 oz Body Mass Index (BMI) 40.4 Intake and Output for Last 24 Hours 06/28/18 06/29/18 06/30/18 23:59 23:59 23:59 Intake Total 920 / 920 520 / 520 30 / 30 Output Total 1000 / 1000 1000 / 1000 0 / 0 Balance -80 / -80 -480 / -480 30 / 30 General: Awake, Alert, Oriented x 3 HEENT: PERRL, EOMI, Sclera Non Icteric Neck: Supple, Good ROM, No Lymph Node Enlargement Lungs: Clear to auscultation Cardiovascular: Irregular Rhythm, Normal S1, Normal S2, No Murmurs, No Rubs, No Gallops Vascular: No Carotid Bruits, Normal Femoral Pulses, Normal Radial Pulses, Normal Dorsalis Pedal Pulse, Normal Posterior Tibial Pulses Abdomen: Bowel Sounds Present, Soft, Non Tender, No HSM, No Organomegaly Extremities: No Cyanosis, No Clubbing, No edema Lymphatic: No Lymph Node Enlargement Neurological: No Focal Motor or Sensory Deficit Psych/Mental Status: Appropriate Rhythm: EKG: ECHO: Stress Test: Cardiac Cath: PCI: CT Surgery: Holter monitor: EPS: PPM: CXR: Chest CT Scan: Medical Necessity - Tobacco Use Smoking Status: Current every day smoker Tobacco Use: Cigarettes Assessment/Plan 1. Atrial fibrillation * Patient presented with atrial fibrillation likely secondary to her lung condition. . * Echocardiogram done demonstrated mild to moderately globally reduced left ventricular systolic function. * We will continue Eliquis * I do not have any plans at this time for DC cardioversion however. We will continue her on amiodarone, beta-moris. Her heart rate at this time appears to be better controlled 2. Cardiopulmonary arrest * I suspect the above is on the basis of severe hypoxia as well as the bradycardia arrhythmia secondary to the beta-moris that the patient was receiving. * That appears to have resolved and currently patient is on supportive management with three-vasoactive agents. We will try and titrate to maintain a mean arterial pressure of 65 mmHg. 3. Lung consolidation * I suspect the above is on the basis of an infection and not a pulmonary embolism with pulmonary infarction. * * 4. Abnormal cardiac enzymes * Above is likely secondary to demand ischemia. * No further workup at this time 5. Acute renal insufficiency * The above is likely secondary to her septic state, hypotension and poor perfusion likely on an underlying baseline renal dysfunction. * Will continue with dialysis * We will continue to follow with you peripherally. * * From the cardiac standpoint the patient can be monitored as an outpatient
[2018-06-30] MEDS: Pantoprazole Sodium 40 MG Tablet PO ×2 (10:35→21:19)
[2018-06-30] MEDS: QUEtiapine 25 MG Tablet PO ×2 (10:35→21:18)
[2018-06-30] MEDS: Metoprolol Tartrate 100 MG Tablet PO ×2 (10:35→21:18)
[2018-06-30] MEDS: Amiodarone 200 MG Tablet PO ×2 (10:35→21:18)
[2018-06-30] MEDS: APIXABAN 2.5 MG TABLET PO ×2 (10:36→21:18)
[2018-06-30] MEDS: Senna/Docusate Sodium 1 Tablet 2 TABLET PO (11:37)
--- NOTE | 2018-06-30 14:06 | PN_ITS ---
Patient Problems: Active and Suspected Problems Severe sepsis (Acute) Acute respiratory failure with hypoxia (Acute) Pneumonia (Acute) Atrial fibrillation with RVR (Acute) LYNNETTE (acute kidney injury) (Acute) Problem with dialysis access (Acute) Subjective: No significant change in vitals. Heart rate is controlled. Patient on hemo dialysis. No significant and overall clinical condition Vitals/I&O's: Vital Signs Temp Pulse Resp BP Pulse Ox 97.2 F L 103 H 20 H 131/93 H 96 06/30/18 13:39 06/30/18 13:39 06/30/18 13:39 06/30/18 13:39 06/30/18 13:39 Oxygen Flow Rate (L/min) 5 Oxygen Delivery Method Nasal Cannula Weight: 234 lb 9.149 oz Body Mass Index (BMI) 40.4 Intake and Output for Last 24 Hours 06/28/18 06/29/18 06/30/18 23:59 23:59 23:59 Intake Total 920 / 920 520 / 520 270 / 270 Output Total 1000 / 1000 1000 / 1000 0 / 0 Balance -80 / -80 -480 / -480 270 / 270 General: Alert, Oriented x3, Cooperative HEENT: Atraumatic, PERRLA, EOMI, Normocephalic Neck: Supple, No JVD, Negative Carotid Bruits Lungs: Diminished, Rhonchi, Short of Breath Cardiovascular: Regular rate, Regular Rhythm, Normal S1, Normal S2, Irregular Rate, Murmur Abdomen: Bowel Sounds Present, Soft, Non Tender, Non-Distended Extremities: Capillary Refill Less than 3 Seconds, Edema Skin: No rashes, No breakdown Musculoskeletal: No Tenderness to Palpation of Joints or Extremities, Arthritic Changes Neurological: Cranial nerves II-XII grossly intact Psych/Mental Status: Normal Affect, Appropriate Current Medications Acetaminophen (Tylenol) 650 mg PO Q6H PRN PRN PRN Reason: PAIN Last Admin: 06/29/18 23:15 Dose: 650 mg Albuterol Sulfate (Ventolin Aerosols) 2.5 mg INHALATION Q2H PRN PRN PRN Reason: SHORTNESS OF BREATH Amiodarone HCl (Cordarone) 200 mg PO BID [facility] Last Admin: 06/30/18 10:35 Dose: 200 mg Apixaban (Eliquis) 2.5 mg PO BID [facility] Last Admin: 06/30/18 10:36 Dose: 2.5 mg Calamine/Phenol (Calmoseptine Ointment) 1 applic TOPICAL TID [facility]; Protocol Last Admin: 06/30/18 06:43 Dose: 1 applicatio Fentanyl Citrate (Sublimaze (100mcg Ampule)) 25 mcg IV Q2H PRN PRN PRN Reason: PAIN Last Admin: 06/24/18 00:37 Dose: 25 mcg Sodium Chloride () 250 mls @ 15 mls/hr IV .[id number] PRN PRN Reason: SALINE FLUSH Last Admin: 06/17/18 21:17 Dose: 15 mls/hr Ipratropium Foster (Atrovent) 0.5 mg INHALATION Q4H.RT PRN PRN Reason: SOB &/OR WHEEZING Methylprednisolone (Solu-Medrol) 40 mg IV Q12 [facility] Last Admin: 06/30/18 10:35 Dose: 40 mg Metoprolol Tartrate (Lopressor (Beta Princess)) 100 mg PO BID [facility] Last Admin: 06/30/18 10:35 Dose: 100 mg Nystatin (Nystatin) 500,000 unit PO Q6H [facility] Last Admin: 06/30/18 11:20 Dose: Not Given Nystatin/Triamcinolone Acetonide (Mycolog) 1 applic TOPICAL TID [facility]; Protocol Last Admin: 06/30/18 10:37 Dose: 1 applic Ondansetron HCl (Zofran) 4 mg IV Q8H PRN PRN PRN Reason: NAUSEA/VOMITING Last Admin: 06/24/18 18:22 Dose: 4 mg Pantoprazole Sodium (Protonix) 40 mg PO BID [facility] Last Admin: 06/30/18 10:35 Dose: 40 mg Quetiapine Fumarate (Seroquel) 25 mg PO BID [facility] Last Admin: 06/30/18 10:35 Dose: 25 mg Senna/Docusate Sodium (Senokot-S, Yanet-Colace) 2 tablet PO DAILY PRN PRN PRN Reason: CONSTIPATION Last Admin: 06/30/18 11:37 Dose: 2 tablet Sodium Chloride () 5 - 15 ml IV UD PRN PRN Reason: SALINE FLUSH Last Admin: 06/29/18 23:21 Dose: 10 ml Sodium Chloride () 10 - 40 ml IV UD PRN PRN Reason: MULTILUMEN/HICMAN CATH FLUSH Last Admin: 06/30/18 04:34 Dose: 30 ml Medical Necessity - Tobacco Use Smoking Status: Current every day smoker Tobacco Use: Cigarettes Assessment/Plan All Active Problems Severe sepsis (Acute) Acute respiratory failure with hypoxia (Acute) Pneumonia (Acute) Atrial fibrillation with RVR (Acute) LYNNETTE (acute kidney injury) (Acute) Problem with dialysis access (Acute) This is a 58 years old female patient who is being admitted to ICU from ER because of shortness of breath, cough and fever, found to have multilobar community-acquired pneumonia complicated by septic shock and her hospital course complicated by cardiac arrest status post CPR, A. fib with RVR, acute renal failure requiring hemodialysis as well as elevated LFTs secondary to shock liver. On 06/22, she went back into A. fib with RVR, received 1 dose of IV amiodarone and now on IV Cardizem drip. #1 septic shock with multiorgan failure secondary to severe community-acquired pneumonia status post cardiac arrest: Blood pressure is maintained, remained in A. fib with RVR, uncontrolled. She has been afebrile. She is on IV steroids. Sputum culture revealed Streptococcus pneumoniae. Blood cultures showed no growth in 48 hours. Urine culture showed no growth. Respiratory panel for viruses came back positive for influenza A. Antibiotics are discontinued Patient has slow oozing/bleeding from dialysis catheter: This is started in the evening yesterday but is now controlled. Eliquis was temporarily held and is now resumed. H&H is stable, 12/35.6. Monitor CBC and BMP. #2 new onset A. fib with RVR/indeterminate troponin: IV Cardizem and IV amiodarone drip discontinued; heart rate still 40%, mild to moderate global hypokinesis of the left ventricle. Cardiology on the case. No plan for cardiac catheter or invasive procedure. No plan for DC cardioversion. #3 acute streptococcal multilobar community-acquired pneumonia: Completed his Levaquin on 06/24/2018. Sputum culture revealed Streptococcus pneumoniae. Blood culture showed no growth in 48 hours. Urine cultures negative. #4 status post cardiac arrest x2: Attributed to new onset A. fib with RVR that is likely precipitated by pneumonia. Her troponin are minimally elevated. EKG revealed no acute ischemic changes. Echocardiogram reviewed as above. At this time, no evidence of acute CHF. #5 acute hypoxic and hypercapnic respiratory failure: Secondary to pneumonia. Status post extubation, remains on BiPAP continuously, nursing staff reported desaturation without BiPAP. #6 acute renal failure/mild hyperkalemia from ATN; hemodialysis dependent: It is still having hyperkalemia and wanted to cut short the duration of dialysis. Patient is still has minimal urine output; mainly an Anuric on dialysis which seems to be permanent. Plan for dialysis as per Nephrology recommendation. #7 shock liver: Secondary to septic shock. Liver transaminases as well as total bilirubin continued to improve. Alk phos is normal. AST and ALT have improved. Albumin 2.4. Alkaline phosphatase 126. Total bilirubin 8.0. Direct bilirubin 6.05. Right upper quadrant sonogram ordered. Patient liver enzymes profile follow shock liver as transaminases have improved and total bili of increased but expected to stabilize and decrease. #8 DVT prophylaxis: SCDs. On apixaban Discharge preparation for long-term acute care as the patient needs hemodialysis, noninvasive ventilatory support including BiPAP/high flow oxygen. Discussed with the correctional case manager and the divisional human resources director. Initially, LTAC is denied and wanted one-to-one peer discussion. Discussed with the doctor for 1-1 peer review and and the physician also talked to Dr. Chavez. LTAC is declined. We will try for SNF placement Overall summary: 58-year-old female who was admitted with septic shock secondary to severe community-acquired pneumonia status post cardiac arrest, shock liver; resuscitation with intubation and then transferred to PCU. Patient is still on BiPAP/high flow oxygen. Anuric on hemodialysis. Patient completed antibiotic. LTAC denied. Pending SNF placement. Code Visit Inpatient E&M: [id number] [facility] L3
--- NOTE | 2018-06-30 16:37 | PN.RENAL_ITS ---
Patient Problems: Active and Suspected Problems Severe sepsis (Acute) Acute respiratory failure with hypoxia (Acute) Pneumonia (Acute) Atrial fibrillation with RVR (Acute) LYNNETTE (acute kidney injury) (Acute) Problem with dialysis access (Acute) Subjective: Patient denies any nausea vomiting. No shortness of breath. No chest pain - Physical Exam General: Alert, Oriented x3 HEENT: Atraumatic Oral: Moist Mucosa Neck: Supple, No JVD Lungs: Rales, Rhonchi Cardiovascular: Regular rate, Regular Rhythm, Normal S1, Normal S2 Abdomen: Bowel Sounds Present, Non Tender Extremities: No clubbing, No cyanosis, No edema Skin: No rashes Musculoskeletal: No Tenderness to Palpation of Joints or Extremities Lymphatic: No Cervical, Supraclavicular, or Inguinal Adenopathy Neurological: Cranial nerves II-XII grossly intact, Neuro grossly intact Psych/Mental Status: Appropriate Vital Signs Temp Pulse Resp BP Pulse Ox 97.2 F L 95 20 H 131/93 H 96 06/30/18 13:39 06/30/18 14:57 06/30/18 13:39 06/30/18 13:39 06/30/18 13:39 Oxygen Flow Rate (L/min) 5 Oxygen Delivery Method Nasal Cannula Weight: 106.4 kg Body Mass Index (BMI) 40.4 Intake and Output for Last 24 Hours 06/28/18 06/29/18 06/30/18 23:59 23:59 23:59 Intake Total 920 / 920 520 / 520 270 / 270 Output Total 1000 / 1000 1000 / 1000 0 / 0 Balance -80 / -80 -480 / -480 270 / 270 Medical Necessity - Tobacco Use Smoking Status: Current every day smoker Tobacco Use: Cigarettes Assessment/Plan All Active Problems Severe sepsis (Acute) Acute respiratory failure with hypoxia (Acute) Pneumonia (Acute) Atrial fibrillation with RVR (Acute) LYNNETTE (acute kidney injury) (Acute) Problem with dialysis access (Acute) 1-Acute kidney injury. Most probably related to ischemic ATN Patient is currently dependent on dialysis for volume and metabolic support. Remains anuric.No recovery of kidney function. Dialysis started on June 17. She has not been compliant with the hemodialysis sessions. I explained the patient the necessity of finishing hemodialysis sessions. Patient was dialyzed yesterday for hyperkalemia. Patient tolerated 1 L of fluid removal. We evaluate the need of hemodialysis session again tomorrow Renal diet Please keep mean arterial pressure more than 65. Avoid nephrotoxic. I will continue to monitor for kidney function recovery 2-Acute respiratory failure from community-acquired pneumonia/Influenza A infe ction. Extubated. Currently on nasal cannula Renal team will continue to follow. Please call with any question or concern Aaliyah Muñoz MD [phone]
--- NOTE | 2018-06-30 21:00 | EKG12_ITS ---
Test Reason : CONVERT NSR Blood Pressure : / mmHG Vent. Rate : 072 BPM Atrial Rate : 072 BPM P-R Int : 170 ms QRS Dur : 090 ms QT Int : 422 ms P-R-T Axes : 024 013 135 degrees QTc Int : 462 ms Sinus rhythm with Premature supraventricular complexes ST & T wave abnormality, consider anterolateral ischemia Prolonged QT Abnormal ECG Confirmed by SAMANTHA CHRISTIAN, KORI ([id number]), editor school photograph TAMMIE WHEELER ([id number]) on 07/02/2018 1:12:59 PM Referred By: DR ACEVEDO Confirmed By:KORI SINGH MD
[2018-07-01] VITALS (16 sets, daily range): BP systolic 119–138; BP diastolic 75–95; PULSE 62–88; RESP 14–24; TEMP 36.1–36.4; O2SAT 92–97
[2018-07-01 05:07] LABS: Absolute Lymphocyte Count 0.69 X10^3/ul (0.83-4.51); Absolute Neutrophil Count 14.7 X10^3/uL (2.0-7.7); Basophil# 0.01 X10^3/uL; Basophil% 0.1 % (0-1); Hematocrit 33.4 % (37-47); Hemoglobin 11.1 g/dl (12.0-15.0); Lymphocyte # 0.69 X10^3/ul (4.0); Lymphocyte % 4.4 % (19-41); Mean Corp Hgb Conc 33.2 g/gl (32-36); Mean Corpuscular Hgb 28.5 pg (27.0-32.0); Mean Corpuscular Volume 85.9 fL (81-99); Mean Platelet Vol. 11.9 fl (6.2-12.0); Monocyte# 0.21 X10^3/uL; Monocyte% 1.3 % (0-10); Neutrophil # 14.65 X10^3/uL (2.7-7.7); Neutrophil % 92.7 % (47-70); Platelet Count 154 K/mm3 (150-450); RBC Distribution Width CV 16.4 % (11.6-14.6); RBC Distribution Width SD 48.9 fl (35.1-43.9); Red Blood Count 3.89 M/mm3 (4.2-5.4); White Blood Count 15.8 K/mm3 (4.4-11.0)
[2018-07-01 05:17] LABS: POSITIVE COUNT NO; POSITIVE DIFFERENTIAL NO; POSITIVE MORPHOLOGY NO
[2018-07-01 05:21] LABS: Anion Gap 19 (5-15); BUN 135 mg/dL (7-18); BUN/Creat Ratio 25.2 RATIO (10-20); Calcium,Total 7.3 mg/dL (8.5-10.1); Chloride 94 mmol/L (98-107); Creatinine, Serum 5.35 mg/dL (0.55-1.02); EST Glomerular Filtration Rate 9 mL/min (>60); Est Glom Filt Rate - Afr Amer 11 mL/min (>60); Estimated Creatinine Clearance 10.14 ml/min; Glucose 117 mg/dL (74-106); Potassium 6.5 mmol/L (3.5-5.1); Sodium Level 136 mmol/L (136-145)
--- NOTE | 2018-07-01 06:58 | PN.CARD_ITS ---
Subjectve: Patient seen and evaluated. Appears to be doing better today. Says she is hungry. Objective: Vital Signs Temp Pulse Resp BP Pulse Ox 97.0 F L 65 20 H 138/86 H 94 07/01/18 06:42 07/01/18 06:42 07/01/18 06:42 07/01/18 06:42 07/01/18 06:42 Oxygen Flow Rate (L/min) 5 Oxygen Delivery Method Bi-pap Weight: 234 lb 12.677 oz Body Mass Index (BMI) 40.4 Intake and Output for Last 24 Hours 06/29/18 06/30/18 07/01/18 23:59 23:59 23:59 Intake Total 520 / 520 390 / 390 130 / 130 Output Total 1000 / 1000 0 / 0 Balance -480 / -480 390 / 390 130 / 130 General: Awake, Alert, Oriented x 3, Obese HEENT: PERRL, EOMI, Sclera Non Icteric Neck: Supple, Good ROM, No Lymph Node Enlargement Lungs: Clear to auscultation Cardiovascular: Regular Rhythm, Normal S1, Normal S2, No Murmurs, No Rubs, No Gallops Vascular: No Carotid Bruits, Normal Femoral Pulses, Normal Radial Pulses, Normal Dorsalis Pedal Pulse, Normal Posterior Tibial Pulses Abdomen: Bowel Sounds Present, Soft, Non Tender, No HSM, No Organomegaly Extremities: No Cyanosis, No Clubbing, No edema Musculoskeletal: No Erythema Skin: No Rashes Lymphatic: No Lymph Node Enlargement Neurological: No Focal Motor or Sensory Deficit 07/01/18 04:40: WBC 15.8 H, RBC 3.89 L, Hgb 11.1 L, Hct 33.4 L, MCV 85.9, MCH 28.5, MCHC 33.2, RDW 16.4 H, RDW Differential 48.9 H, Plt Count 154, MPV 11.9, Immature Gran % (Auto) 1.500 H, Neut % (Auto) 92.7 H, Lymph % (Auto) 4.4 L, [place] % (Auto) 1.3, Eos % (Auto) 0.0, Baso % (Auto) 0.1, Absolute Neuts (auto) 14.7 H, Total Counted Not Reportable 07/01/18 04:40: Sodium 136, Potassium 6.5 H*, Chloride 94 L, Carbon Dioxide 23.0, Anion Gap 19 H, BUN 135 H*, Creatinine 5.35 H, Est GFR (MDRD) Af Amer 11 L , Est GFR (MDRD) Non-Af 9 L, BUN/Creatinine Ratio 25.2 H, Glucose 117 H, Calcium 7.3 L Rhythm: EKG: Normal sinus rhythm ECHO: Global reduction ejection fraction estimated at 40% Medical Necessity - Tobacco Use Smoking Status: Current every day smoker Tobacco Use: Cigarettes Assessment/Plan 1. Atrial fibrillation * Patient presented with atrial fibrillation likely secondary to her lung condition. . * Echocardiogram done demonstrated mild to moderately globally reduced left ventricular systolic function. * We will continue Eliquis * She has converted to sinus rhythm and the plan will be to include and continue her beta-moris and amiodarone 2. Cardiopulmonary arrest * I suspect the above is on the basis of severe hypoxia as well as the bradycardia arrhythmia secondary to the beta-moris that the patient was receiving. * 3. Lung consolidation * I suspect the above is on the basis of an infection and not a pulmonary embolism with pulmonary infarction. * * 4. Abnormal cardiac enzymes * Above is likely secondary to demand ischemia. * No further workup at this time 5. Acute renal insufficiency * The above is likely secondary to her septic state, hypotension and poor perfusion likely on an underlying baseline renal dysfunction. * Will continue with dialysis * We will continue to follow with you peripherally. * * From the cardiac standpoint the patient can be monitored as an outpatient
[2018-07-01] MEDS: QUEtiapine 25 MG Tablet PO ×2 (10:07→22:01)
[2018-07-01] MEDS: Pantoprazole Sodium 40 MG Tablet PO ×2 (10:07→22:01)
--- NOTE | 2018-07-01 10:30 | CASEMGMT ---
This RN CM spoke with Toya at [facility] and she states that pt has been officially denied by [facility] for LTACH. She wants to know if physician wants to do appeal. This RN CM will speak with Dr. Gutierrez and then notify Toya either way. SStvandana RN LAURA
--- NOTE | 2018-07-01 12:52 | PCM.PN.HOSP ---
Patient Problems: Active and Suspected Problems Severe sepsis (Acute) Acute respiratory failure with hypoxia (Acute) Pneumonia (Acute) Atrial fibrillation with RVR (Acute) LYNNETTE (acute kidney injury) (Acute) Problem with dialysis access (Acute) Subjective: Patient was seen and examined. appears confused, denies any new complains. She wants to go home. No acute events overnight LTAC application was denied by insurance. Vitals/I&O's: Vital Signs Temp Pulse Resp BP Pulse Ox 97.2 F L 70 18 136/95 H 92 07/01/18 09:57 07/01/18 11:19 07/01/18 09:57 07/01/18 09:57 07/01/18 09:57 Oxygen Flow Rate (L/min) 5 Oxygen Delivery Method Nasal Cannula Weight: 106.5 kg Body Mass Index (BMI) 40.4 Intake and Output for Last 24 Hours 06/29/18 06/30/18 07/01/18 23:59 23:59 23:59 Intake Total 520 / 520 390 / 390 130 / 130 Output Total 1000 / 1000 0 / 0 Balance -480 / -480 390 / 390 130 / 130 General: Alert, Oriented x3, Cooperative, No apparent distress, - - on 5-6L oxygen HEENT: Atraumatic, PERRLA, EOMI, Normocephalic Oral: Moist Mucosa Neck: Supple Lungs: Normal air movement, Diminished Cardiovascular: Regular rate, Regular Rhythm, Normal S1, Normal S2, No murmurs Abdomen: Bowel Sounds Present, Soft, Non Tender, Non-Distended, No Hepato-splenomegaly Extremities: Edema - +2-3, generalised Skin: No rashes Musculoskeletal: No Tenderness to Palpation of Joints or Extremities Lymphatic: No Cervical, Supraclavicular, or Inguinal Adenopathy Neurological: Cranial nerves II-XII grossly intact, Neuro grossly intact Psych/Mental Status: Normal Affect, Appropriate Laboratory Results 07/01/18 04:40: WBC 15.8 H, RBC 3.89 L, Hgb 11.1 L, Hct 33.4 L, MCV 85.9, MCH 28.5, MCHC 33.2, RDW 16.4 H, RDW Differential 48.9 H, Plt Count 154, MPV 11.9, Immature Gran % (Auto) 1.500 H, Neut % (Auto) 92.7 H, Lymph % (Auto) 4.4 L, [place] % (Auto) 1.3, Eos % (Auto) 0.0, Baso % (Auto) 0.1, Absolute Neuts (auto) 14.7 H, Absolute Lymphs (auto) 0.69 L, Total Counted Not Reportable 07/01/18 04:40: Sodium 136, Potassium 6.5 H*, Chloride 94 L, Carbon Dioxide 23.0, Anion Gap 19 H, BUN 135 H*, Creatinine 5.35 H, Estim Creat Clear Calc 10.14, Est GFR (MDRD) Af Amer 11 L, Est GFR (MDRD) Non-Af 9 L, BUN/Creatinine Ratio 25.2 H, Glucose 117 H, Calcium 7.3 L Current Medications Acetaminophen (Tylenol) 650 mg PO Q6H PRN PRN PRN Reason: PAIN Last Admin: 06/29/18 23:15 Dose: 650 mg Albuterol Sulfate (Ventolin Aerosols) 2.5 mg INHALATION Q2H PRN PRN PRN Reason: SHORTNESS OF BREATH Amiodarone HCl (Cordarone) 200 mg PO BID [facility] Last Admin: 07/01/18 10:10 Dose: Not Given Apixaban (Eliquis) 2.5 mg PO BID [facility] Last Admin: 07/01/18 10:10 Dose: Not Given Calamine/Phenol (Calmoseptine Ointment) 1 applic TOPICAL TID [facility]; Protocol Last Admin: 07/01/18 06:35 Dose: Not Given Fentanyl Citrate (Sublimaze (100mcg Ampule)) 25 mcg IV Q2H PRN PRN PRN Reason: PAIN Last Admin: 06/24/18 00:37 Dose: 25 mcg Sodium Chloride () 250 mls @ 15 mls/hr IV .[id number] PRN PRN Reason: SALINE FLUSH Last Admin: 06/17/18 21:17 Dose: 15 mls/hr Ipratropium [place] (Atrovent) 0.5 mg INHALATION Q4H.RT PRN PRN Reason: SOB &/OR WHEEZING Methylprednisolone (Solu-Medrol) 40 mg IV Q12 [facility] Last Admin: 07/01/18 10:07 Dose: 40 mg Metoprolol Tartrate (Lopressor (Beta Moris)) 100 mg PO BID [facility] Last Admin: 07/01/18 10:10 Dose: Not Given Nystatin (Nystatin) 500,000 unit PO Q6H [facility] Last Admin: 07/01/18 05:52 Dose: Not Given Nystatin/Triamcinolone Acetonide (Mycolog) 1 applic TOPICAL TID [facility]; Protocol Last Admin: 07/01/18 06:36 Dose: Not Given Ondansetron HCl (Zofran) 4 mg IV Q8H PRN PRN PRN Reason: NAUSEA/VOMITING Last Admin: 06/24/18 18:22 Dose: 4 mg Pantoprazole Sodium (Protonix) 40 mg PO BID [facility] Last Admin: 07/01/18 10:07 Dose: 40 mg Quetiapine Fumarate (Seroquel) 25 mg PO BID [facility] Last Admin: 07/01/18 10:07 Dose: 25 mg Senna/Docusate Sodium (Senokot-S, Yanet-Colace) 2 tablet PO DAILY PRN PRN PRN Reason: CONSTIPATION Last Admin: 06/30/18 11:37 Dose: 2 tablet Sodium Chloride () 5 - 15 ml IV UD PRN PRN Reason: SALINE FLUSH Last Admin: 06/29/18 23:21 Dose: 10 ml Sodium Chloride () 10 - 40 ml IV UD PRN PRN Reason: MULTILUMEN/HICMAN CATH FLUSH Last Admin: 07/01/18 04:42 Dose: 20 ml Medical Necessity - Tobacco Use Smoking Status: Current every day smoker Tobacco Use: Cigarettes Assessment/Plan All Active Problems Severe sepsis (Acute) Acute respiratory failure with hypoxia (Acute) Pneumonia (Acute) Atrial fibrillation with RVR (Acute) LYNNETTE (acute kidney injury) (Acute) Problem with dialysis access (Acute) 58 years old female admitted with shortness of breath, cough and fever, found to have multilobar community-acquired pneumonia complicated by septic shock and her hospital course complicated by cardiac arrest status post CPR, A. fib with RVR, acute renal failure requiring hemodialysis as well as elevated LFTs secondary to shock liver. On 06/22, she went back into A. fib with RVR, received 1 dose of IV amiodarone and IV Cardizem drip. 1. Septic shock with multiorgan failure secondary to severe community-acquired pneumonia status post cardiac arrest, resolved, BP are stable Blood cxs negative, sputum cxs growing streptococcal pneumoniae, Resp panel on admission was positive for influenza Completed antibiotics on 06/24/18; will continue to monitor 2. A. fib with RVR, in NSR, on amiodarone, beta-moris, apixaban, will continue to monitor 3. Acute streptococcal multilobar community-acquired pneumonia, completed IV levaquin on 06/24/2018. 4. LYNNETTE/persistent hyperkalemia secondary to ATN; remains anuric, patient has been intolerant of dialysis, nephrology following 5. status post cardiac arrest x2 likely secondary to new onset A. fib with RVR, 2D-echo shows EF 40% 6. Acute combined respiratory failure secondary to severe CAP, improved, currently on 5L oxygen, will continue to wean off oxygen, continue on Bipap QHS and prn 7. Shock liver secondary to septic shock, improving transaminases, will follow 8. DVT prophylaxis- On apixaban 9. Disposition: Possible dc to SNF when bed is available Code Visit Inpatient E&M: 36616 Subs Hosp L2
[2018-07-01] MEDS: Menthol/Lanolin/Calamine/Znox 113 GM Tube 1 APPLIC TOPICAL ×2 (13:17→22:07)
[2018-07-01] MEDS: Nystatin/Triamcin Cream Tube 1 APPLIC TOPICAL ×2 (13:18→22:02)
--- NOTE | 2018-07-01 14:11 | CASEMGMT ---
Social Work LTACH has been denied by insurance. MATTHEW spoke with Dr. Gutierrez who states pt will be appropriate for SNF. SW met with pt and informed that LTACH has been denied and that SNF will be pursued. SNF's in networks told to pt. Pt deferring decision to her brother and sister. Pt brother and sister here to visit. SW explained LTACH denial and not pursuing SNF placement. List of in network facilities given to pt brother and he would like [facility] [place] and second choice is [facility]. Phone call to Toya at [facility]. They do have beds available, accept pt insurance, accept dialysis pt and will transport pt to dialysis. Referral faxed. SW will await determination. ROME Lau
--- NOTE | 2018-07-01 14:13 | PCM.PN.REN ---
Patient Problems: Active and Suspected Problems Severe sepsis (Acute) Acute respiratory failure with hypoxia (Acute) Pneumonia (Acute) Atrial fibrillation with RVR (Acute) LYNNETTE (acute kidney injury) (Acute) Problem with dialysis access (Acute) Subjective: no new complaints - Physical Exam General: Alert, Oriented x3, Cooperative HEENT: Atraumatic, PERRLA, EOMI, Normocephalic Neck: Supple, No JVD, Negative Carotid Bruits Lungs: Clear to auscultation, Normal air movement Cardiovascular: Regular rate, No murmurs Abdomen: Bowel Sounds Present, Soft, Non Tender Extremities: No edema, Capillary Refill Less than 3 Seconds Skin: No rashes, No breakdown Musculoskeletal: No Tenderness to Palpation of Joints or Extremities Neurological: Cranial nerves II-XII grossly intact Psych/Mental Status: Normal Affect, Appropriate Vital Signs Temp Pulse Resp BP Pulse Ox 97.2 F L 70 18 136/95 H 92 07/01/18 09:57 07/01/18 11:19 07/01/18 09:57 07/01/18 09:57 07/01/18 09:57 Oxygen Flow Rate (L/min) 5 Oxygen Delivery Method Nasal Cannula Weight: 106.5 kg Body Mass Index (BMI) 40.4 Intake and Output for Last 24 Hours 06/29/18 06/30/18 07/01/18 23:59 23:59 23:59 Intake Total 520 / 520 390 / 390 130 / 130 Output Total 1000 / 1000 0 / 0 Balance -480 / -480 390 / 390 130 / 130 Laboratory Tests Past 24 Hrs 07/01/18 07/01/18 04:40 04:40 WBC 15.8 H RBC 3.89 L Hgb 11.1 L Hct 33.4 L MCV 85.9 MCH 28.5 MCHC 33.2 RDW 16.4 H RDW Differential 48.9 H Plt Count 154 MPV 11.9 Immature Gran % (Auto) 1.500 H Neut % (Auto) 92.7 H Lymph % (Auto) 4.4 L [place] % (Auto) 1.3 Eos % (Auto) 0.0 Baso % (Auto) 0.1 Absolute Neuts (auto) 14.7 H Absolute Lymphs (auto) 0.69 L Total Counted Not Reportable Sodium 136 Potassium 6.5 H* Chloride 94 L Carbon Dioxide 23.0 Anion Gap 19 H BUN 135 H* Creatinine 5.35 H Estim Creat Clear Calc 10.14 Est GFR (MDRD) Af Amer 11 L Est GFR (MDRD) Non-Af 9 L BUN/Creatinine Ratio 25.2 H Glucose 117 H Calcium 7.3 L Medical Necessity - Tobacco Use Smoking Status: Current every day smoker Tobacco Use: Cigarettes Assessment/Plan All Active Problems Severe sepsis (Acute) Acute respiratory failure with hypoxia (Acute) Pneumonia (Acute) Atrial fibrillation with RVR (Acute) LYNNETTE (acute kidney injury) (Acute) Problem with dialysis access (Acute) 1-Acute kidney injury. Most probably related to ischemic ATN Patient is currently dependent on dialysis for volume and metabolic support. Remains anuric. No recovery of kidney function. Dialysis started on June 17. 2-Acute respiratory failure from community-acquired pneumonia/Influenza A infection. Patient was extubated on June 20. better now 3-bilateral pneumonia/Influenza A infection. On antibiotics as per the ICU team. Plan continues to be resistant to do dialysis as per recommendations. K is high discussed with staff. will run longer treatment from today HD on 1K followed by 2 K
--- NOTE | 2018-07-01 14:24 | CASEMGMT ---
Dr. Gutierrez declines to appeal LTACH denial at this time. Pt's brother would like pt go to [facility] at discharge now that LTACH denied. Referral sent to [facility] for outpt dialysis at this time as they are the only [place] clinic in-network with pt's [employer] insurance at this time. Jann CASTRO sent referral to [facility] for pt at this time and per [facility], they will transport pt to dialysis. Rabia SHAFFER CM
--- NOTE | 2018-07-01 15:49 | CASEMGMT ---
Per [facility] PT therapy assist., pt is not appropriate for wheelchair or sitting in chair for dialysis at this time. She states that they got pt into chair several days ago and it took 7ppl to get pt back in bed at that time. Pt has not been up out of bed since. Jann CASTRO aware at this time, voices understanding. Rabia SHAFFER CM
--- NOTE | 2018-07-01 16:25 | CASEMGMT ---
Social Work Return call from [facility] and they are able to accept pt. RN LAURA spoke with therapy who states pt is not getting out of bed at this time and will not be able to transfer from a wheelchair to the dialysis chair at outpt dialysis. Pt will need SNF with on site dialysis. Phone call to [facility] ([facility], ) and the are in network with insurance, have beds available and do on site dialysis. Referral faxed. Pt informed that she would not be able to go to [facility] and that other options were being pursued. As pt previously referred SW to speak with brother SW assured pt that brother would be notified. Phone call to pt brother Ezequiel and informed him of pt needs for on site dialysis and that [facility] was closest facility to [place]. Ezequiel is agreeable to this placement. MATTHEW will await determination from [facility] who state they may do an onsight visit tomorrow. ROME Lau
--- NOTE | 2018-07-01 18:09 | DIALYSIS ---
Hemodialysis x 4hrs today. UF -2000mL removed. pt tolerated tx well. Report to floor RN. Pt stable See dialysis flow sheet for details
[2018-07-01] MEDS: Amiodarone 200 MG Tablet PO (22:00)
[2018-07-01] MEDS: Metoprolol Tartrate 100 MG Tablet PO (22:00)
[2018-07-01] MEDS: APIXABAN 2.5 MG TABLET PO (22:01)
[2018-07-02] VITALS (19 sets, daily range): BP systolic 117–135; BP diastolic 73–88; PULSE 63–79; RESP 14–27; TEMP 36.4–37.4; O2SAT 91–97
[2018-07-02] MEDS: 0.9% NaCl Peripheral Flush Adult/Peds IV ×4 (05:05→22:18)
[2018-07-02 05:34] LABS: ALB/GLOB Ratio 0.6 RATIO (0.9-2.4); AST(SGOT) 61 U/L (15-37); Alanine Aminotransfer ALT/SGPT 50 U/L (13-56); Albumin, Serum 2.1 g/dL (3.2-5.0); Alkaline Phosphatase 241 U/L (45-117); Anion Gap 13 (5-15); BUN 71 mg/dL (7-18); BUN/Creat Ratio 19.7 RATIO (10-20); Calcium,Total 7.4 mg/dL (8.5-10.1); Chloride 97 mmol/L (98-107); Creatinine, Serum 3.61 mg/dL (0.55-1.02); EST Glomerular Filtration Rate 14 mL/min (>60); Est Glom Filt Rate - Afr Amer 17 mL/min (>60); Estimated Creatinine Clearance 15.03 ml/min; Globulin 3.8 g/dL (2.2-4.2); Glucose 116 mg/dL (74-106); Potassium 5.2 mmol/L (3.5-5.1); Protein, Total 5.9 g/dL (6.4-8.2); Sodium Level 138 mmol/L (136-145)
[2018-07-02 05:40] LABS: Absolute Lymphocyte Count 0.66 X10^3/ul (0.83-4.51); Absolute Neutrophil Count 15.9 X10^3/uL (2.0-7.7); Basophil# 0.01 X10^3/uL; Basophil% 0.1 % (0-1); Differential Indicated SCAN CRITERIA MET; Eosinophil# 0.01 X10^3/uL; Eosinophils% 0.1 % (0-5); Hematocrit 32.6 % (37-47); Hemoglobin 10.8 g/dl (12.0-15.0); Lymphocyte # 0.66 X10^3/ul (4.0); Lymphocyte % 3.9 % (19-41); Mean Corp Hgb Conc 33.1 g/gl (32-36); Mean Corpuscular Hgb 28.6 pg (27.0-32.0); Mean Corpuscular Volume 86.5 fL (81-99); Mean Platelet Vol. 12.5 fl (6.2-12.0); Monocyte# 0.35 X10^3/uL; Neutrophil # 15.89 X10^3/uL (2.7-7.7); Neutrophil % 92.7 % (47-70); POSITIVE COUNT NO; POSITIVE DIFFERENTIAL NO; POSITIVE MORPHOLOGY YES; Platelet Count 124 K/mm3 (150-450); RBC Distribution Width CV 16.7 % (11.6-14.6); RBC Distribution Width SD 49.7 fl (35.1-43.9); Red Blood Count 3.77 M/mm3 (4.2-5.4); White Blood Count 17.1 K/mm3 (4.4-11.0)
[2018-07-02] MEDS: Nystatin/Triamcin Cream Tube 1 APPLIC TOPICAL ×2 (06:29→22:10)
--- NOTE | 2018-07-02 09:01 | PN.CARD_ITS ---
Subjectve: Patient seen and evaluated Objective: Vital Signs Temp Pulse Resp BP Pulse Ox 97.6 F L 69 20 H 126/80 H 91 07/02/18 02:55 07/02/18 07:00 07/02/18 04:39 07/02/18 02:55 07/02/18 08:00 Oxygen Flow Rate (L/min) 6 Oxygen Delivery Method Nasal Cannula Weight: 227 lb 1.218 oz Body Mass Index (BMI) 40.4 Intake and Output for Last 24 Hours 06/30/18 07/01/18 07/02/18 23:59 23:59 23:59 Intake Total 390 / 390 130 / 130 180 / 180 Output Total 0 / 0 0 / 0 Balance 390 / 390 130 / 130 180 / 180 General: Awake, Alert, Oriented x 3 HEENT: PERRL, EOMI, Sclera Non Icteric Neck: Supple, Good ROM, No Lymph Node Enlargement Lungs: Clear to auscultation Cardiovascular: Regular Rhythm, Normal S1, Normal S2, No Murmurs, No Rubs, No Gallops Vascular: No Carotid Bruits, Normal Femoral Pulses, Normal Radial Pulses, Normal Dorsalis Pedal Pulse, Normal Posterior Tibial Pulses Abdomen: Bowel Sounds Present, Soft, Non Tender, No HSM, No Organomegaly Extremities: No Cyanosis, No Clubbing, No edema Musculoskeletal: No Erythema Lymphatic: No Lymph Node Enlargement Neurological: No Focal Motor or Sensory Deficit Psych/Mental Status: Appropriate 07/02/18 05:00: WBC 17.1 H, RBC 3.77 L, Hgb 10.8 L, Hct 32.6 L, MCV 86.5, MCH 28.6, MCHC 33.1, RDW 16.7 H, RDW Differential 49.7 H, Plt Count 124 L, MPV 12.5 H, Immature Gran % (Auto) 1.200 H, Neut % (Auto) 92.7 H, Lymph % (Auto) 3.9 L, [place] % (Auto) 2.0, Eos % (Auto) 0.1, Baso % (Auto) 0.1, Absolute Neuts (auto) 15.9 H, Total Counted Not Reportable 07/02/18 05:00: Sodium 138, Potassium 5.2 H, Chloride 97 L, Carbon Dioxide 28.0, Anion Gap 13, BUN 71 H, Creatinine 3.61 H, Est GFR (MDRD) Af Amer 17 L, Est GFR (MDRD) Non-Af 14 L, BUN/Creatinine Ratio 19.7, Glucose 116 H, Calcium 7.4 L, Total Bilirubin 4.90 H Rhythm: EKG: ECHO: Stress Test: Cardiac Cath: PCI: CT Surgery: Holter monitor: EPS: PPM: CXR: Chest CT Scan: Medical Necessity - Tobacco Use Smoking Status: Current every day smoker Tobacco Use: Cigarettes Assessment/Plan 1. Atrial fibrillation * Patient presented with atrial fibrillation likely secondary to her lung condition. . * Echocardiogram done demonstrated mild to moderately globally reduced left ventricular systolic function. * We will continue Eliquis * She has converted to sinus rhythm and the plan will be to include and continue her beta-moris and amiodarone 2. Cardiopulmonary arrest * I suspect the above is on the basis of severe hypoxia as well as the bradycardia arrhythmia secondary to the beta-moris that the patient was receiving. * 3. Lung consolidation * I suspect the above is on the basis of an infection and not a pulmonary embolism with pulmonary infarction. * * 4. Abnormal cardiac enzymes * Above is likely secondary to demand ischemia. * No further workup at this time 5. Acute renal insufficiency * The above is likely secondary to her septic state, hypotension and poor perfusion likely on an underlying baseline renal dysfunction. * Will continue with dialysis * We will continue to follow with you peripherally. * * From the cardiac standpoint the patient can be monitored as an outpatient
[2018-07-02] MEDS: QUEtiapine 25 MG Tablet PO ×2 (09:45→22:10)
[2018-07-02] MEDS: Metoprolol Tartrate 100 MG Tablet PO ×2 (09:46→22:09)
[2018-07-02] MEDS: Amiodarone 200 MG Tablet PO ×2 (09:46→22:08)
[2018-07-02] MEDS: Pantoprazole Sodium 40 MG Tablet PO ×2 (09:47→22:10)
[2018-07-02] MEDS: APIXABAN 2.5 MG TABLET PO ×2 (09:47→22:08)
--- NOTE | 2018-07-02 10:37 | CASEMGMT ---
Received phone call from Korin at [facility]. She said they can accept patient and they will start the pre-cert. MATTHEW faxed her the last 3 dialysis run sheets and her Hep B panel per her request. Await insurance authorization. Plan: [facility] pending insurance approval. Goldie POSADA MSW
--- NOTE | 2018-07-02 10:58 | CASEMGMT ---
This RN CM has not received call from pt's [facility] coordinator. Call to [facility] at this time and per warehouse operator, coordinator is Regina Huffman, and this RN CM left a message for her to call me back at this time. Regina then called this RN CM back and this RN CM advised her that pt will now be going to onsite dialysis at [facility] once precert obtained, voices understanding. She states she will follow thru to see what she needs to do to transfer referral to them at this time. Rabia RN LAURA
--- NOTE | 2018-07-02 11:31 | CASEMGMT ---
SW let patient know that [facility] can accept her and now we just need to wait on insurance. MATTHEW told her SW will let Ezequiel know as well. Goldie POSADA CRANE ENGINEER
--- NOTE | 2018-07-02 12:08 | PN.RENAL_ITS ---
Patient Problems: Active and Suspected Problems Severe sepsis (Acute) Acute respiratory failure with hypoxia (Acute) Pneumonia (Acute) Atrial fibrillation with RVR (Acute) LYNNETTE (acute kidney injury) (Acute) Problem with dialysis access (Acute) Subjective: no new complaints - Physical Exam General: Alert, Oriented x3, Cooperative HEENT: Atraumatic, PERRLA, EOMI, Normocephalic Neck: Supple, No JVD, Negative Carotid Bruits Lungs: Clear to auscultation, Normal air movement Cardiovascular: Regular rate, No murmurs Abdomen: Bowel Sounds Present, Soft, Non Tender Extremities: No edema, Capillary Refill Less than 3 Seconds Skin: No rashes, No breakdown Musculoskeletal: No Tenderness to Palpation of Joints or Extremities Neurological: Cranial nerves II-XII grossly intact Psych/Mental Status: Normal Affect, Appropriate Vital Signs Temp Pulse Resp BP Pulse Ox 98.0 F 73 22 H 117/74 94 07/02/18 11:54 07/02/18 11:54 07/02/18 11:54 07/02/18 11:54 07/02/18 11:54 Oxygen Flow Rate (L/min) 5 Oxygen Delivery Method Nasal Cannula Weight: 103 kg Body Mass Index (BMI) 40.4 Intake and Output for Last 24 Hours 06/30/18 07/01/18 07/02/18 23:59 23:59 23:59 Intake Total 390 / 390 130 / 130 530 / 530 Output Total 0 / 0 0 / 0 Balance 390 / 390 130 / 130 530 / 530 Laboratory Tests Past 24 Hrs 07/02/18 07/02/18 05:00 05:00 WBC 17.1 H RBC 3.77 L Hgb 10.8 L Hct 32.6 L MCV 86.5 MCH 28.6 MCHC 33.1 RDW 16.7 H RDW Differential 49.7 H Plt Count 124 L MPV 12.5 H Immature Gran % (Auto) 1.200 H Neut % (Auto) 92.7 H Lymph % (Auto) 3.9 L [place] % (Auto) 2.0 Eos % (Auto) 0.1 Baso % (Auto) 0.1 Absolute Neuts (auto) 15.9 H Absolute Lymphs (auto) 0.66 L Total Counted Not Reportable Differential Comment Sodium 138 Potassium 5.2 H Chloride 97 L Carbon Dioxide 28.0 Anion Gap 13 BUN 71 H Creatinine 3.61 H Estim Creat Clear Calc 15.03 Est GFR (MDRD) Af Amer 17 L Est GFR (MDRD) Non-Af 14 L BUN/Creatinine Ratio 19.7 Glucose 116 H Calcium 7.4 L Total Bilirubin 4.90 H AST 61 H ALT 50 Alkaline Phosphatase 241 H Total Protein 5.9 L Albumin 2.1 L Globulin 3.8 Albumin/Globulin Ratio 0.6 L Medical Necessity - Tobacco Use Smoking Status: Current every day smoker Tobacco Use: Cigarettes Assessment/Plan All Active Problems Severe sepsis (Acute) Acute respiratory failure with hypoxia (Acute) Pneumonia (Acute) Atrial fibrillation with RVR (Acute) LYNNETTE (acute kidney injury) (Acute) Problem with dialysis access (Acute) 1-Acute kidney injury. Most probably related to ischemic ATN Patient is currently dependent on dialysis for volume and metabolic support. Remains anuric. No recovery of kidney function. Dialysis started on June 17. . Plan HD tomorrow check CPK
--- NOTE | 2018-07-02 12:17 | PN_ITS ---
Patient Problems: Active and Suspected Problems Severe sepsis (Acute) Acute respiratory failure with hypoxia (Acute) Pneumonia (Acute) Atrial fibrillation with RVR (Acute) LYNNETTE (acute kidney injury) (Acute) Problem with dialysis access (Acute) Subjective: Patient was seen and examined. She appears much improved today. Remains on 5 L of oxygen. Denies any chest pain or dizziness. She is eager to be discharged. Waiting on insurance precertification [facility] Objective: Physical exam: General: Alert, Oriented x3, Cooperative, No apparent distress, - - on 5L oxygen HEENT: Atraumatic, PERRLA, EOMI, Normocephalic Oral: Moist Mucosa Neck: Supple Lungs: Normal air movement, Diminished Cardiovascular: Regular rate, Regular Rhythm, Normal S1, Normal S2, No murmurs Abdomen: Bowel Sounds Present, Soft, Non Tender, Non-Distended, No Hepato- splenomegaly Extremities: Edema - +2-3, generalised Skin: No rashes Musculoskeletal: No Tenderness to Palpation of Joints or Extremities Lymphatic: No Cervical, Supraclavicular, or Inguinal Adenopathy Neurological: Cranial nerves II-XII grossly intact, Neuro grossly intact Psych/Mental Status: Normal Affect, Appropriate Vitals/I&O's: Vital Signs Temp Pulse Resp BP Pulse Ox 98.0 F 73 22 H 117/74 94 07/02/18 11:54 07/02/18 11:54 07/02/18 11:54 07/02/18 11:54 07/02/18 11:54 Oxygen Flow Rate (L/min) 5 Oxygen Delivery Method Nasal Cannula Weight: 103 kg Body Mass Index (BMI) 40.4 Intake and Output for Last 24 Hours 06/30/18 07/01/18 07/02/18 23:59 23:59 23:59 Intake Total 390 / 390 130 / 130 530 / 530 Output Total 0 / 0 0 / 0 Balance 390 / 390 130 / 130 530 / 530 Laboratory Results 07/02/18 05:00: WBC 17.1 H, RBC 3.77 L, Hgb 10.8 L, Hct 32.6 L, MCV 86.5, MCH 28.6, MCHC 33.1, RDW 16.7 H, RDW Differential 49.7 H, Plt Count 124 L, MPV 12.5 H, Immature Gran % (Auto) 1.200 H, Neut % (Auto) 92.7 H, Lymph % (Auto) 3.9 L, [place] % (Auto) 2.0, Eos % (Auto) 0.1, Baso % (Auto) 0.1, Absolute Neuts (auto) 15.9 H, Absolute Lymphs (auto) 0.66 L, Total Counted Not Reportable, Differential Comment 07/02/18 05:00: Sodium 138, Potassium 5.2 H, Chloride 97 L, Carbon Dioxide 28.0, Anion Gap 13, BUN 71 H, Creatinine 3.61 H, Estim Creat Clear Calc 15.03, Est GFR (MDRD) Af Amer 17 L, Est GFR (MDRD) Non-Af 14 L, BUN/Creatinine Ratio 19.7, Glucose 116 H, Calcium 7.4 L, Total Bilirubin 4.90 H, AST 61 H, ALT 50, Alkaline Phosphatase 241 H, Total Protein 5.9 L, Albumin 2.1 L, Globulin 3.8, Albumin/Globulin Ratio 0.6 L Current Medications Acetaminophen (Tylenol) 650 mg PO Q6H PRN PRN PRN Reason: PAIN Last Admin: 06/29/18 23:15 Dose: 650 mg Albuterol Sulfate (Ventolin Aerosols) 2.5 mg INHALATION Q2H PRN PRN PRN Reason: SHORTNESS OF BREATH Amiodarone HCl (Cordarone) 200 mg PO BID [facility] Last Admin: 07/02/18 09:46 Dose: 200 mg Apixaban (Eliquis) 2.5 mg PO BID [facility] Last Admin: 07/02/18 09:47 Dose: 2.5 mg Calamine/Phenol (Calmoseptine Ointment) 1 applic TOPICAL TID [facility]; Protocol Last Admin: 07/02/18 06:30 Dose: Not Given Sodium Chloride () 250 mls @ 15 mls/hr IV .[id number] PRN PRN Reason: SALINE FLUSH Last Admin: 06/17/18 21:17 Dose: 15 mls/hr Ipratropium [place] (Atrovent) 0.5 mg INHALATION Q4H.RT PRN PRN Reason: SOB &/OR WHEEZING Methylprednisolone (Solu-Medrol) 40 mg IV Q12 [facility] Last Admin: 07/02/18 09:47 Dose: 40 mg Metoprolol Tartrate (Lopressor (Beta Moris)) 100 mg PO BID [facility] Last Admin: 07/02/18 09:46 Dose: 100 mg Nystatin (Nystatin) 500,000 unit PO Q6H [facility] Last Admin: 07/02/18 12:01 Dose: Not Given Nystatin/Triamcinolone Acetonide (Mycolog) 1 applic TOPICAL TID [facility]; Protocol Last Admin: 07/02/18 06:29 Dose: 1 applic Ondansetron HCl (Zofran) 4 mg IV Q8H PRN PRN PRN Reason: NAUSEA/VOMITING Last Admin: 06/24/18 18:22 Dose: 4 mg Pantoprazole Sodium (Protonix) 40 mg PO BID [facility] Last Admin: 07/02/18 09:47 Dose: 40 mg Quetiapine Fumarate (Seroquel) 25 mg PO BID [facility] Last Admin: 07/02/18 09:45 Dose: 25 mg Senna/Docusate Sodium (Senokot-S, Yanet-Colace) 2 tablet PO DAILY PRN PRN PRN Reason: CONSTIPATION Last Admin: 06/30/18 11:37 Dose: 2 tablet Sodium Chloride () 5 - 15 ml IV UD PRN PRN Reason: SALINE FLUSH Last Admin: 07/02/18 05:06 Dose: 10 ml Sodium Chloride () 10 - 40 ml IV UD PRN PRN Reason: MULTILUMEN/HICMAN CATH FLUSH Last Admin: 07/01/18 04:42 Dose: 20 ml Medical Necessity - Tobacco Use Smoking Status: Current every day smoker Tobacco Use: Cigarettes Assessment/Plan All Active Problems Severe sepsis (Acute) Acute respiratory failure with hypoxia (Acute) Pneumonia (Acute) Atrial fibrillation with RVR (Acute) LYNNETTE (acute kidney injury) (Acute) Problem with dialysis access (Acute) 58 years old female admitted with shortness of breath, cough and fever, found to have multilobar community-acquired pneumonia complicated by septic shock and her hospital course complicated by cardiac arrest status post CPR, A. fib with RVR, acute renal failure requiring hemodialysis as well as elevated LFTs secondary to shock liver. On 06/22, she went back into A. fib with RVR, received 1 dose of IV amiodarone and IV Cardizem drip. 1. Septic shock with multiorgan failure secondary to severe community-acquired pneumonia status post cardiac arrest, resolved, BP are stable Blood cxs negative, sputum cxs growing streptococcal pneumoniae, Resp panel on admission was positive for influenza, completed treatment Completed antibiotics on 06/24/18; increase in her white cell count, likely re active, will continue to follow 2. A. fib with RVR, in NSR, on amiodarone, beta-moris, apixaban, will continue to monitor 3. Acute streptococcal multilobar community-acquired pneumonia, completed IV levaquin on 06/24/2018. 4. LYNNETTE/persistent hyperkalemia secondary to ATN; remains anuric, Had dialysis done yesterday; patient has been intolerant of dialysis, Potassium is improved from 6.5-5.2, BUN/creatinine is down to 71/3.61 Patient will be dependent on dialysis -? To be set up in the outpatient 5. status post cardiac arrest x2 likely secondary to new onset A. fib with RVR, 2D-echo shows EF 40% 6. Acute combined respiratory failure secondary to severe CAP, improved, currently on 5L oxygen, will continue to wean off oxygen, continue on Bipap QHS and prn 7. Shock liver secondary to septic shock, improving transaminases, seems to have plateaued, continue to monitor 8. DVT prophylaxis- On apixaban 9. Disposition: Possible dc to SNF when bed is available Code Visit Inpatient E&M: 57750 Subs Hosp L2
[2018-07-02] MEDS: Menthol/Lanolin/Calamine/Znox 113 GM Tube 1 APPLIC TOPICAL (22:07)
[2018-07-03] VITALS (20 sets, daily range): BP systolic 119–145; BP diastolic 70–90; PULSE 61–86; RESP 14–28; TEMP 36.3–36.7; O2SAT 93–98
[2018-07-03] MEDS: 0.9% NaCl Peripheral Flush Adult/Peds IV ×4 (05:23→21:50)
[2018-07-03 05:56] LABS: ALB/GLOB Ratio 0.6 RATIO (0.9-2.4); AST(SGOT) 79 U/L (15-37); Alanine Aminotransfer ALT/SGPT 75 U/L (13-56); Alkaline Phosphatase 321 U/L (45-117); Anion Gap 15 (5-15); BUN 118 mg/dL (7-18); BUN/Creat Ratio 23.2 RATIO (10-20); Calcium,Total 6.9 mg/dL (8.5-10.1); Chloride 98 mmol/L (98-107); Creatinine, Serum 5.09 mg/dL (0.55-1.02); EST Glomerular Filtration Rate 9 mL/min (>60); Est Glom Filt Rate - Afr Amer 11 mL/min (>60); Estimated Creatinine Clearance 10.66 ml/min; Globulin 3.5 g/dL (2.2-4.2); Glucose 130 mg/dL (74-106); Potassium 5.5 mmol/L (3.5-5.1); Protein, Total 5.5 g/dL (6.4-8.2); Sodium Level 138 mmol/L (136-145)
[2018-07-03] MEDS: Nystatin/Triamcin Cream Tube 1 APPLIC TOPICAL ×2 (06:43→13:41)
[2018-07-03] MEDS: Menthol/Lanolin/Calamine/Znox 113 GM Tube 1 APPLIC TOPICAL ×3 (06:43→20:30)
--- NOTE | 2018-07-03 11:08 | CASEMGMT ---
Received call from Korin at [facility]. She said insurance is requesting updated therapy notes. MATTHEW faxed her updated therapy notes. MATTHEW also spoke with her and she thanked MATTHEW for the information. Goldie POSADA MSW
--- NOTE | 2018-07-03 11:47 | PCM.PN.REN ---
Patient Problems: Active and Suspected Problems Severe sepsis (Acute) Acute respiratory failure with hypoxia (Acute) Pneumonia (Acute) Atrial fibrillation with RVR (Acute) LYNNETTE (acute kidney injury) (Acute) Problem with dialysis access (Acute) - Physical Exam General: Alert, Oriented x3, Cooperative HEENT: Atraumatic, PERRLA, EOMI, Normocephalic Neck: Supple, No JVD, Negative Carotid Bruits Lungs: Clear to auscultation, Normal air movement Cardiovascular: Regular rate, No murmurs Abdomen: Bowel Sounds Present, Soft, Non Tender Extremities: No edema, Capillary Refill Less than 3 Seconds Skin: No rashes, No breakdown Musculoskeletal: No Tenderness to Palpation of Joints or Extremities Neurological: Cranial nerves II-XII grossly intact Psych/Mental Status: Normal Affect, Appropriate Vital Signs Temp Pulse Resp BP Pulse Ox 97.9 F 68 18 121/71 H 97 07/03/18 08:50 07/03/18 11:39 07/03/18 08:50 07/03/18 08:50 07/03/18 08:50 Oxygen Flow Rate (L/min) 5 Oxygen Delivery Method Nasal Cannula Weight: 106.6 kg Body Mass Index (BMI) 40.4 Intake and Output for Last 24 Hours 07/01/18 07/02/18 07/03/18 23:59 23:59 23:59 Intake Total 130 / 130 930 / 930 120 / 120 Output Total 0 / 0 Balance 130 / 130 930 / 930 120 / 120 Laboratory Tests Past 24 Hrs 07/03/18 05:15 Sodium 138 Potassium 5.5 H Chloride 98 Carbon Dioxide 25.0 Anion Gap 15 BUN 118 H* Creatinine 5.09 H Estim Creat Clear Calc 10.66 Est GFR (MDRD) Af Amer 11 L Est GFR (MDRD) Non-Af 9 L BUN/Creatinine Ratio 23.2 H Glucose 130 H Calcium 6.9 L Total Bilirubin 3.60 H AST 79 H ALT 75 H Alkaline Phosphatase 321 H Total Protein 5.5 L Albumin 2.0 L Globulin 3.5 Albumin/Globulin Ratio 0.6 L Medical Necessity - Tobacco Use Smoking Status: Current every day smoker Tobacco Use: Cigarettes Assessment/Plan All Active Problems Severe sepsis (Acute) Acute respiratory failure with hypoxia (Acute) Pneumonia (Acute) Atrial fibrillation with RVR (Acute) LYNNETTE (acute kidney injury) (Acute) Problem with dialysis access (Acute) 1-Acute kidney injury. Most probably related to ischemic ATN Patient is currently dependent on dialysis for volume and metabolic support. Remains anuric. No recovery of kidney function. Dialysis started on June 17. . Plan seen on HD today see orders/flowsheets
--- NOTE | 2018-07-03 13:32 | CASEMGMT ---
MATTHEW spoke with patient's POAEzequiel and let him know that [facility] is able to take patient. MATTHEW explained we just need to wait on insurance to give us the okay. Goldie POSADA MSW
--- NOTE | 2018-07-03 13:34 | DIALYSIS ---
HD x4 hours completed, tolerated very well, cooperative, slept off and on, accessed via R chest HD cath, 1500mL removed
[2018-07-03] MEDS: Amiodarone 200 MG Tablet PO ×2 (13:38→21:34)
[2018-07-03] MEDS: APIXABAN 2.5 MG TABLET PO ×2 (13:39→21:34)
[2018-07-03] MEDS: Pantoprazole Sodium 40 MG Tablet PO ×2 (13:39→21:35)
[2018-07-03] MEDS: Metoprolol Tartrate 100 MG Tablet PO ×2 (13:39→21:34)
[2018-07-03] MEDS: QUEtiapine 25 MG Tablet PO ×2 (13:40→21:35)
--- NOTE | 2018-07-03 15:06 | NURSING ---
this RN assuming care of pt at this time
--- NOTE | 2018-07-03 16:54 | PCM.PN.HOSP ---
Patient Problems: Active and Suspected Problems Severe sepsis (Acute) Acute respiratory failure with hypoxia (Acute) Pneumonia (Acute) Atrial fibrillation with RVR (Acute) LYNNETTE (acute kidney injury) (Acute) Problem with dialysis access (Acute) Subjective: Patient was seen and examined on dialysis. She denied any new complains. Eager to be discharged. Denies chest pain, dizziness or SOB. Objective: Physical exam: General: Alert, Oriented x3, Cooperative, No apparent distress, - - on 5L oxygen HEENT: Atraumatic, PERRLA, EOMI, Normocephalic Oral: Moist Mucosa Neck: Supple Lungs: Normal air movement, Diminished Cardiovascular: Regular rate, Regular Rhythm, Normal S1, Normal S2, No murmurs Abdomen: Bowel Sounds Present, Soft, Non Tender, Non-Distended, No Hepato-splenomegaly Extremities: Edema - +2 generalised Skin: No rashes Musculoskeletal: No Tenderness to Palpation of Joints or Extremities Lymphatic: No Cervical, Supraclavicular, or Inguinal Adenopathy Neurological: Cranial nerves II-XII grossly intact, Neuro grossly intact Psych/Mental Status: Normal Affect, Appropriate Vitals/I&O's: Vital Signs Temp Pulse Resp BP Pulse Ox 97.4 F L 76 18 145/90 H 93 07/03/18 14:50 07/03/18 15:00 07/03/18 14:50 07/03/18 14:50 07/03/18 14:50 Oxygen Flow Rate (L/min) 5 Oxygen Delivery Method Nasal Cannula Weight: 103.6 kg Body Mass Index (BMI) 40.4 Intake and Output for Last 24 Hours 07/01/18 07/02/18 07/03/18 23:59 23:59 23:59 Intake Total 130 / 130 930 / 930 120 / 120 Output Total 0 / 0 5000 / 5000 Balance 130 / 130 930 / 930 -4880 / -4880 Laboratory Results 07/03/18 05:15: Sodium 138, Potassium 5.5 H, Chloride 98, Carbon Dioxide 25.0, Anion Gap 15, BUN 118 H*, Creatinine 5.09 H, Estim Creat Clear Calc 10.66, Est GFR (MDRD) Af Amer 11 L, Est GFR (MDRD) Non-Af 9 L, BUN/Creatinine Ratio 23.2 H, Glucose 130 H, Calcium 6.9 L, Total Bilirubin 3.60 H, AST 79 H, ALT 75 H, Alkaline Phosphatase 321 H, Total Protein 5.5 L, Albumin 2.0 L, Globulin 3.5, Albumin/Globulin Ratio 0.6 L Current Medications Acetaminophen (Tylenol) 650 mg PO Q6H PRN PRN PRN Reason: PAIN Last Admin: 06/29/18 23:15 Dose: 650 mg Albuterol Sulfate (Ventolin Aerosols) 2.5 mg INHALATION Q2H PRN PRN PRN Reason: SHORTNESS OF BREATH Amiodarone HCl (Cordarone) 200 mg PO BID [facility] Last Admin: 07/03/18 13:38 Dose: 200 mg Apixaban (Eliquis) 2.5 mg PO BID [facility] Last Admin: 07/03/18 13:39 Dose: 2.5 mg Calamine/Phenol (Calmoseptine Ointment) 1 applic TOPICAL TID [facility]; Protocol Last Admin: 07/03/18 13:40 Dose: 1 applicatio Sodium Chloride () 250 mls @ 15 mls/hr IV .[id number] PRN PRN Reason: SALINE FLUSH Last Admin: 06/17/18 21:17 Dose: 15 mls/hr Ipratropium [place] (Atrovent) 0.5 mg INHALATION Q4H.RT PRN PRN Reason: SOB &/OR WHEEZING Methylprednisolone (Solu-Medrol) 40 mg IV Q12 [facility] Last Admin: 07/03/18 13:40 Dose: 40 mg Metoprolol Tartrate (Lopressor (Beta Moris)) 100 mg PO BID [facility] Last Admin: 07/03/18 13:39 Dose: 100 mg Nystatin (Nystatin) 500,000 unit PO Q6H [facility] Last Admin: 07/03/18 13:40 Dose: Not Given Nystatin/Triamcinolone Acetonide (Mycolog) 1 applic TOPICAL TID [facility]; Protocol Last Admin: 07/03/18 13:41 Dose: 1 applic Ondansetron HCl (Zofran) 4 mg IV Q8H PRN PRN PRN Reason: NAUSEA/VOMITING Last Admin: 06/24/18 18:22 Dose: 4 mg Pantoprazole Sodium (Protonix) 40 mg PO BID [facility] Last Admin: 07/03/18 13:39 Dose: 40 mg Quetiapine Fumarate (Seroquel) 25 mg PO BID [facility] Last Admin: 07/03/18 13:40 Dose: 25 mg Senna/Docusate Sodium (Senokot-S, Yanet-Colace) 2 tablet PO DAILY PRN PRN PRN Reason: CONSTIPATION Last Admin: 06/30/18 11:37 Dose: 2 tablet Sodium Chloride () 5 - 15 ml IV UD PRN PRN Reason: SALINE FLUSH Last Admin: 07/03/18 05:26 Dose: 10 ml Sodium Chloride () 10 - 40 ml IV UD PRN PRN Reason: MULTILUMEN/HICMAN CATH FLUSH Last Admin: 07/01/18 04:42 Dose: 20 ml Medical Necessity - Tobacco Use Smoking Status: Current every day smoker Tobacco Use: Cigarettes Assessment/Plan All Active Problems Severe sepsis (Acute) Acute respiratory failure with hypoxia (Acute) Pneumonia (Acute) Atrial fibrillation with RVR (Acute) LYNNETTE (acute kidney injury) (Acute) Problem with dialysis access (Acute) 58 years old female admitted with shortness of breath, cough and fever, found to have multilobar community-acquired pneumonia complicated by septic shock and her hospital course complicated by cardiac arrest status post CPR, A. fib with RVR, acute renal failure requiring hemodialysis as well as elevated LFTs secondary to shock liver. On 06/22, she went back into A. fib with RVR, received 1 dose of IV amiodarone and IV Cardizem drip. 1. LYNNETTE/hyperkalemia secondary to ATN; on HD, labs look slightly improved, nephrology following 2. Septic shock with multiorgan failure secondary to severe community-acquired pneumonia status post cardiac arrest, resolved, 3. A. fib with RVR, resolved, in NSR, on amiodarone, beta-moris, apixaban, will continue to monitor 4. Acute streptococcal multilobar community-acquired pneumonia, completed IV levaquin on 06/24/2018. 5. Status post cardiac arrest x2 likely secondary to new onset A. fib with RVR, 2D-echo shows EF 40% 6. Acute combined respiratory failure secondary to severe CAP, improved, currently on 5L oxygen, will continue to wean off oxygen, continue on Bipap QHS and prn 7. Shock liver secondary to septic shock, improving transaminases, seems to have plateaued, continue to monitor 8. DVT prophylaxis- On apixaban 9. Disposition: Possible dc to SNF when bed is available Code Visit Inpatient E&M: 76258 Subs Hosp L2
[2018-07-03] MEDS: Glycerin/Hypromellose/PEG400 15 ml Bottle 1 DRP EACH EYE (18:12)
--- NOTE | 2018-07-03 19:40 | EKG12_ITS ---
Test Reason : CP Blood Pressure : / mmHG Vent. Rate : 062 BPM Atrial Rate : 062 BPM P-R Int : 154 ms QRS Dur : 090 ms QT Int : 412 ms P-R-T Axes : 022 014 128 degrees QTc Int : 418 ms Normal sinus rhythm ST & T wave abnormality, consider anterolateral ischemia Abnormal ECG When compared with ECG of 30-JUN-2018 21:16, Premature supraventricular complexes are no longer Present Confirmed by SAMANTHA CHRISTIAN, KORI ([id number]), design editor TAMMIE WHEELER ([id number]) on 07/05/2018 1:51:14 PM Referred By: NESHA Confirmed By:KORI SINGH MD
[2018-07-03] MEDS: Acetaminophen 325 MG Tablet 650 MG PO (21:41)
[2018-07-04] VITALS (19 sets, daily range): BP systolic 117–129; BP diastolic 66–74; PULSE 50–72; RESP 14–27; TEMP 36.3–36.8; O2SAT 92–98
[2018-07-04 02:12] LABS: Magnesium 2.2 mg/dL (1.6-2.6)
[2018-07-04 05:19] LABS: ALB/GLOB Ratio 0.6 RATIO (0.9-2.4); AST(SGOT) 66 U/L (15-37); Alanine Aminotransfer ALT/SGPT 76 U/L (13-56); Albumin, Serum 2.1 g/dL (3.2-5.0); Alkaline Phosphatase 319 U/L (45-117); Anion Gap 12 (5-15); BUN 70 mg/dL (7-18); BUN/Creat Ratio 19.9 RATIO (10-20); Chloride 97 mmol/L (98-107); Creatinine, Serum 3.52 mg/dL (0.55-1.02); EST Glomerular Filtration Rate 14 mL/min (>60); Est Glom Filt Rate - Afr Amer 17 mL/min (>60); Estimated Creatinine Clearance 15.41 ml/min; Globulin 3.5 g/dL (2.2-4.2); Glucose 132 mg/dL (74-106); Potassium 4.8 mmol/L (3.5-5.1); Protein, Total 5.6 g/dL (6.4-8.2); Sodium Level 139 mmol/L (136-145)
[2018-07-04 05:26] LABS: CPK Total, Creatine Kinase 50 U/L (26-192)
[2018-07-04] MEDS: APIXABAN 2.5 MG TABLET PO ×2 (08:42→21:54)
[2018-07-04] MEDS: Pantoprazole Sodium 40 MG Tablet PO ×2 (08:42→21:55)
[2018-07-04] MEDS: QUEtiapine 25 MG Tablet PO ×2 (08:42→21:55)
[2018-07-04] MEDS: Metoprolol Tartrate 100 MG Tablet PO ×2 (08:42→21:55)
[2018-07-04] MEDS: Amiodarone 200 MG Tablet PO ×2 (08:42→21:54)
--- NOTE | 2018-07-04 10:52 | PN_ITS ---
Patient Problems: Active and Suspected Problems Severe sepsis (Acute) Acute respiratory failure with hypoxia (Acute) Pneumonia (Acute) Atrial fibrillation with RVR (Acute) LYNNETTE (acute kidney injury) (Acute) Problem with dialysis access (Acute) Subjective: Patient seen and examined. Patient has been difficult to work with therapy. Denies chest pain, dizziness, palpitations. Waiting on insurance pre-certification for discharge. Objective: Physical exam: General: Alert, Oriented x3, Cooperative, No apparent distress, - - on 4L oxygen HEENT: Atraumatic, PERRLA, EOMI, Normocephalic Oral: Moist Mucosa Neck: Supple, LIJ access Lungs: Normal air movement, Diminished Cardiovascular: Regular rate, Regular Rhythm, Normal S1, Normal S2, No murmurs Abdomen: Bowel Sounds Present, Soft, Non Tender, Non-Distended, No Hepato- splenomegaly Extremities: Edema - +1 generalised Skin: No rashes Musculoskeletal: No Tenderness to Palpation of Joints or Extremities Lymphatic: No Cervical, Supraclavicular, or Inguinal Adenopathy Neurological: Cranial nerves II-XII grossly intact, Neuro grossly intact Psych/Mental Status: Normal Affect, Appropriate Vitals/I&O's: Vital Signs Temp Pulse Resp BP Pulse Ox 97.8 F 70 18 117/70 97 07/04/18 08:40 07/04/18 08:42 07/04/18 08:40 07/04/18 08:42 07/04/18 08:40 Oxygen Flow Rate (L/min) 4 Oxygen Delivery Method Nasal Cannula Weight: 103.5 kg Body Mass Index (BMI) 40.4 Intake and Output for Last 24 Hours 07/02/18 07/03/18 07/04/18 23:59 23:59 23:59 Intake Total 930 / 930 510 / 510 0 / 0 Output Total 0 / 0 5000 / 5000 0 / 0 Balance 930 / 930 -4490 / -4490 0 / 0 Laboratory Results 07/04/18 01:48: Magnesium 2.2 07/04/18 04:42: Sodium 139, Potassium 4.8, Chloride 97 L, Carbon Dioxide 30.0, Anion Gap 12, BUN 70 H, Creatinine 3.52 H, Estim Creat Clear Calc 15.41, Est GFR (MDRD) Af Amer 17 L, Est GFR (MDRD) Non-Af 14 L, BUN/Creatinine Ratio 19.9, Glucose 132 H, Calcium 7.0 L, Total Bilirubin 3.70 H, AST 66 H, ALT 76 H, Alkaline Phosphatase 319 H, Total Protein 5.6 L, Albumin 2.1 L, Globulin 3.5, Albumin/Globulin Ratio 0.6 L 07/04/18 04:42: Total Creatine Kinase 50 Current Medications Acetaminophen (Tylenol) 650 mg PO Q6H PRN PRN PRN Reason: PAIN Last Admin: 07/03/18 21:41 Dose: 650 mg Albuterol Sulfate (Ventolin Aerosols) 2.5 mg INHALATION Q2H PRN PRN PRN Reason: SHORTNESS OF BREATH Amiodarone HCl (Cordarone) 200 mg PO BID [facility] Last Admin: 07/04/18 08:42 Dose: 200 mg Apixaban (Eliquis) 2.5 mg PO BID [facility] Last Admin: 07/04/18 08:42 Dose: 2.5 mg Calamine/Phenol (Calmoseptine Ointment) 1 applic TOPICAL TID [facility]; Protocol Last Admin: 07/04/18 05:21 Dose: Not Given Sodium Chloride () 250 mls @ 15 mls/hr IV .[id number] PRN PRN Reason: SALINE FLUSH Last Admin: 06/17/18 21:17 Dose: 15 mls/hr Ipratropium [place] (Atrovent) 0.5 mg INHALATION Q4H.RT PRN PRN Reason: SOB &/OR WHEEZING Methylprednisolone (Solu-Medrol) 40 mg IV Q12 [facility] Last Admin: 07/04/18 08:42 Dose: 40 mg Metoprolol Tartrate (Lopressor (Beta [place])) 100 mg PO BID [facility] Last Admin: 07/04/18 08:42 Dose: 100 mg Nystatin (Nystatin) 500,000 unit PO Q6H [facility] Last Admin: 07/04/18 10:35 Dose: Not Given Nystatin/Triamcinolone Acetonide (Mycolog) 1 applic TOPICAL TID [facility]; Protocol Last Admin: 07/04/18 05:21 Dose: Not Given Ondansetron HCl (Zofran) 4 mg IV Q8H PRN PRN PRN Reason: NAUSEA/VOMITING Last Admin: 06/24/18 18:22 Dose: 4 mg Pantoprazole Sodium (Protonix) 40 mg PO BID [facility] Last Admin: 07/04/18 08:42 Dose: 40 mg Quetiapine Fumarate (Seroquel) 25 mg PO BID [facility] Last Admin: 07/04/18 08:42 Dose: 25 mg Senna/Docusate Sodium (Senokot-S, Yanet-Colace) 2 tablet PO DAILY PRN PRN PRN Reason: CONSTIPATION Last Admin: 06/30/18 11:37 Dose: 2 tablet Sodium Chloride () 5 - 15 ml IV UD PRN PRN Reason: SALINE FLUSH Last Admin: 07/03/18 21:50 Dose: 10 ml Sodium Chloride () 10 - 40 ml IV UD PRN PRN Reason: MULTILUMEN/HICMAN CATH FLUSH Last Admin: 07/04/18 04:43 Dose: 20 ml Medical Necessity - Tobacco Use Smoking Status: Current every day smoker Tobacco Use: Cigarettes Assessment/Plan All Active Problems Severe sepsis (Acute) Acute respiratory failure with hypoxia (Acute) Pneumonia (Acute) Atrial fibrillation with RVR (Acute) LYNNETTE (acute kidney injury) (Acute) Problem with dialysis access (Acute) 58 years old female admitted with shortness of breath, cough and fever, found to have multilobar community-acquired pneumonia complicated by septic shock and her hospital course complicated by cardiac arrest status post CPR, A. fib with RVR, acute renal failure requiring hemodialysis as well as elevated LFTs secondary to shock liver. On 06/22, she went back into A. fib with RVR, received 1 dose of IV amiodarone and IV Cardizem drip. 1. LYNNETTE/hyperkalemia secondary to ATN; hyperkalemia is resolved, on HD, nephrology following 2. Septic shock with multiorgan failure secondary to severe community-acquired pneumonia status post cardiac arrest, resolved, 3. A. fib with RVR, resolved, in NSR, on amiodarone, beta-princess, apixaban, will continue to monitor 4. Acute streptococcal multilobar community-acquired pneumonia, completed IV levaquin on 06/24/2018. 5. Status post cardiac arrest x2 likely secondary to new onset A. fib with RVR, 2D-echo shows EF 40% 6. Acute combined respiratory failure secondary to severe CAP, improved, currently on 4-5L oxygen, will continue to wean off oxygen, continue on Bipap QHS and prn 7. Shock liver secondary to septic shock, improving transaminases, seems to have plateaued, continue to monitor 8. DVT prophylaxis- On apixaban 9. Disposition: Possible dc to SNF when bed is available Code Visit Inpatient E&M: 83569 Subs Hosp L2
--- NOTE | 2018-07-04 11:29 | CASEMGMT ---
MATTHEW called Korin at [facility]. She has not heard from insurance, but she does have a call out to them. Await pre-cert. MATTHEW spoke with patient per her request. MATTHEW let her know we are still waiting on insurance. MATTHEW reassured her that this is not unusual. Insurance often takes a day or two to give an answer. SW also told her that she also needs to participate in therapy or her insurance will not approve her to go to [facility]. Patient then agreed to work with therapy. Goldie POSADA MSW
[2018-07-04] MEDS: Menthol/Lanolin/Calamine/Znox 113 GM Tube 1 APPLIC TOPICAL (13:44)
[2018-07-04] MEDS: Nystatin/Triamcin Cream Tube 1 APPLIC TOPICAL (13:44)
--- NOTE | 2018-07-04 14:04 | CASEMGMT ---
SW checked with Korin from [facility] again. She still has not heard anything from insurance. SW gave her the phone number to [facility] to call if she gets authorization as SW will be leaving for a meeting. Plan: [facility] under skilled level of care. PASRR was completed as patient will likely need more than 30 days at the SNF. Goldie POSADA MSW
--- NOTE | 2018-07-04 15:27 | PCM.PN.REN ---
Patient Problems: Active and Suspected Problems Severe sepsis (Acute) Acute respiratory failure with hypoxia (Acute) Pneumonia (Acute) Atrial fibrillation with RVR (Acute) LYNNETTE (acute kidney injury) (Acute) Problem with dialysis access (Acute) Subjective: no new complaints - Physical Exam General: Alert, Oriented x3, Cooperative HEENT: Atraumatic, PERRLA, EOMI, Normocephalic Neck: Supple, No JVD, Negative Carotid Bruits Lungs: Clear to auscultation, Normal air movement Cardiovascular: Regular rate, No murmurs Abdomen: Bowel Sounds Present, Soft, Non Tender Extremities: No edema, Capillary Refill Less than 3 Seconds Skin: No rashes, No breakdown Musculoskeletal: No Tenderness to Palpation of Joints or Extremities Neurological: Cranial nerves II-XII grossly intact Psych/Mental Status: Normal Affect, Appropriate Vital Signs Temp Pulse Resp BP Pulse Ox 97.8 F 65 18 117/70 97 07/04/18 08:40 07/04/18 11:28 07/04/18 08:40 07/04/18 08:42 07/04/18 08:40 Oxygen Flow Rate (L/min) 4 Oxygen Delivery Method Room Air Weight: 103.5 kg Body Mass Index (BMI) 40.4 Intake and Output for Last 24 Hours 07/02/18 07/03/18 07/04/18 23:59 23:59 23:59 Intake Total 930 / 930 510 / 510 600 / 600 Output Total 0 / 0 5000 / 5000 0 / 0 Balance 930 / 930 -4490 / -4490 600 / 600 Laboratory Tests Past 24 Hrs 07/04/18 07/04/18 07/04/18 01:48 04:42 04:42 Sodium 139 Potassium 4.8 Chloride 97 L Carbon Dioxide 30.0 Anion Gap 12 BUN 70 H Creatinine 3.52 H Estim Creat Clear Calc 15.41 Est GFR (MDRD) Af Amer 17 L Est GFR (MDRD) Non-Af 14 L BUN/Creatinine Ratio 19.9 Glucose 132 H Calcium 7.0 L Magnesium 2.2 Total Bilirubin 3.70 H AST 66 H ALT 76 H Alkaline Phosphatase 319 H Total Creatine Kinase 50 Total Protein 5.6 L Albumin 2.1 L Globulin 3.5 Albumin/Globulin Ratio 0.6 L Medical Necessity - Tobacco Use Smoking Status: Current every day smoker Tobacco Use: Cigarettes Assessment/Plan All Active Problems Severe sepsis (Acute) Acute respiratory failure with hypoxia (Acute) Pneumonia (Acute) Atrial fibrillation with RVR (Acute) LYNNETTE (acute kidney injury) (Acute) Problem with dialysis access (Acute) 1-Acute kidney injury. Most probably related to ischemic ATN Patient is currently dependent on dialysis for volume and metabolic support. Remains anuric. No recovery of kidney function. Dialysis started on June 17. . Plan HD tomorrow has a tunneled line in place waiting for insurance approval for rehab with in house dialysis
[2018-07-04] MEDS: 0.9% NaCl Peripheral Flush Adult/Peds IV ×2 (21:56→22:17)
[2018-07-04] MEDS: Acetaminophen 325 MG Tablet 650 MG PO (22:00)
[2018-07-05] VITALS (13 sets, daily range): BP systolic 116–143; BP diastolic 72–90; PULSE 52–77; RESP 14–27; TEMP 36.3–37.1; O2SAT 95–99
[2018-07-05] MEDS: Menthol/Lanolin/Calamine/Znox 113 GM Tube 1 APPLIC TOPICAL (02:45)
[2018-07-05] MEDS: Nystatin/Triamcin Cream Tube 1 APPLIC TOPICAL (05:10)
[2018-07-05 06:01] LABS: Albumin, Serum 2.1 g/dL (3.2-5.0); BUN 112 mg/dL (7-18); Calcium,Total 7.2 mg/dL (8.5-10.1); Chloride 98 mmol/L (98-107); Creatinine, Serum 4.66 mg/dL (0.55-1.02); EST Glomerular Filtration Rate 10 mL/min (>60); Est Glom Filt Rate - Afr Amer 13 mL/min (>60); Estimated Creatinine Clearance 11.64 ml/min; Glucose 128 mg/dL (74-106); Phosphorus 8.9 mg/dL (2.5-4.9); Potassium 5.1 mmol/L (3.5-5.1); Sodium Level 138 mmol/L (136-145)
[2018-07-05 06:03] LABS: Absolute Lymphocyte Count 0.35 X10^3/ul (0.83-4.51); Absolute Neutrophil Count 16.9 X10^3/uL (2.0-7.7); Basophil# 0.02 X10^3/uL; Basophil% 0.1 % (0-1); Eosinophil# 0.02 X10^3/uL; Eosinophils% 0.1 % (0-5); Hematocrit 32.7 % (37-47); Hemoglobin 10.6 g/dl (12.0-15.0); Lymphocyte # 0.35 X10^3/ul (4.0); Lymphocyte % 1.9 % (19-41); Mean Corp Hgb Conc 32.4 g/gl (32-36); Mean Corpuscular Hgb 28.6 pg (27.0-32.0); Mean Corpuscular Volume 88.1 fL (81-99); Mean Platelet Vol. 12.8 fl (6.2-12.0); Monocyte# 0.57 X10^3/uL; Monocyte% 3.2 % (0-10); Neutrophil # 16.88 X10^3/uL (2.7-7.7); Neutrophil % 93.5 % (47-70); Platelet Count 108 K/mm3 (150-450); RBC Distribution Width CV 17.2 % (11.6-14.6); Red Blood Count 3.71 M/mm3 (4.2-5.4); White Blood Count 18.1 K/mm3 (4.4-11.0)
[2018-07-05 06:05] LABS: Differential Indicated SCAN CRITERIA MET; POSITIVE COUNT NO; POSITIVE DIFFERENTIAL YES; POSITIVE MORPHOLOGY NO
--- NOTE | 2018-07-05 07:26 | PN.CARD_ITS ---
Subjectve: Patient seen and evaluated. Status quo ante. Waiting for insurance papers before discharge Objective: Vital Signs Temp Pulse Resp BP Pulse Ox 97.3 F L 54 L 24 H 138/86 H 97 07/05/18 02:55 07/05/18 03:30 07/05/18 03:30 07/05/18 02:55 07/05/18 03:30 Oxygen Flow Rate (L/min) 4 Oxygen Delivery Method Bi-pap Weight: 223 lb 5.252 oz Body Mass Index (BMI) 40.4 Intake and Output for Last 24 Hours 07/03/18 07/04/18 07/05/18 23:59 23:59 23:59 Intake Total 510 / 510 1880 / 1880 0 / 0 Output Total 5000 / 5000 0 / 0 Balance -4490 / -4490 1880 / 1880 0 / 0 General: Awake, Alert, Oriented x 3 HEENT: PERRL, EOMI, Sclera Non Icteric Neck: Supple, Good ROM, No Lymph Node Enlargement Lungs: Clear to auscultation Cardiovascular: Regular Rhythm, Normal S1, Normal S2, No Murmurs, No Rubs, No Gallops Vascular: No Carotid Bruits, Normal Femoral Pulses, Normal Radial Pulses, Normal Dorsalis Pedal Pulse, Normal Posterior Tibial Pulses Abdomen: Bowel Sounds Present, Soft, Non Tender, No HSM, No Organomegaly Extremities: No Cyanosis, No Clubbing, No edema Neurological: No Focal Motor or Sensory Deficit 07/05/18 05:15: WBC 18.1 H, RBC 3.71 L, Hgb 10.6 L, Hct 32.7 L, MCV 88.1, MCH 28.6, MCHC 32.4, RDW 17.2 H, RDW Differential 52.0 H, Plt Count 108 L, MPV 12.8 H, Immature Gran % (Auto) 1.200 H, Neut % (Auto) 93.5 H, Lymph % (Auto) 1.9 L, [place] % (Auto) 3.2, Eos % (Auto) 0.1, Baso % (Auto) 0.1, Absolute Neuts (auto) 16.9 H, Total Counted Not Reportable 07/05/18 05:15: Sodium 138, Potassium 5.1, Chloride 98, Carbon Dioxide 27.0, BUN 112 H*, Creatinine 4.66 H, Est GFR (MDRD) Af Amer 13 L, Est GFR (MDRD) Non-Af 10 L, BUN/Creatinine Ratio 24.0 H, Glucose 128 H, Calcium 7.2 L, Phosphorus 8.9 H Rhythm: EKG: ECHO: Stress Test: Cardiac Cath: PCI: CT Surgery: Holter monitor: EPS: PPM: CXR: Chest CT Scan: Medical Necessity - Tobacco Use Smoking Status: Current every day smoker Tobacco Use: Cigarettes Assessment/Plan 1. Atrial fibrillation * Patient presented with atrial fibrillation likely secondary to her lung condition. . * Echocardiogram done demonstrated mild to moderately globally reduced left ventricular systolic function. * We will continue Eliquis * She has converted to sinus rhythm and the plan will be to include and continue her beta-moris and amiodarone 2. Cardiopulmonary arrest * I suspect the above is on the basis of severe hypoxia as well as the bradycardia arrhythmia secondary to the beta-moris that the patient was receiving. * 3. Lung consolidation * I suspect the above is on the basis of an infection and not a pulmonary embolism with pulmonary infarction. * * 4. Abnormal cardiac enzymes * Above is likely secondary to demand ischemia. * No further workup at this time 5. Acute renal insufficiency * The above is likely secondary to her septic state, hypotension and poor perfusion likely on an underlying baseline renal dysfunction. * Will continue with dialysis * We will continue to follow with you peripherally. * * From the cardiac standpoint the patient can be monitored as an outpatient
[2018-07-05] MEDS: Amiodarone 200 MG Tablet PO (08:48)
[2018-07-05] MEDS: Pantoprazole Sodium 40 MG Tablet PO (08:49)
[2018-07-05] MEDS: QUEtiapine 25 MG Tablet PO (08:49)
[2018-07-05] MEDS: APIXABAN 2.5 MG TABLET PO (08:51)
--- NOTE | 2018-07-05 13:00 | CASEMGMT ---
Patient was approved for [facility]. Notified physician. Await orders. Goldie DEL VALLE
--- NOTE | 2018-07-05 13:10 | PCM.TXEXTCAR ---
- Diet 07/04/18 11:36 Diet: Cardiac/Low Cholesterol Dietary Modifications:: Mechanical Soft Diet Low Potassium Restriction Is pt able to select menu?: No Diet Comments: ASPIRATION PRECAUTIONS; MEDS CRUSHED IN PUREES - Routine Orders/Code Status O2 Liters per Minute: 4-5L O2 Frequency: Continuous Keep PO Greater than or Equal to (%): 94 - Bipap 16/8 at night Routine Lab Work: CBC - within 3 days, BMP - within 3 days Code Status: Full Code - Wound(s) R neck Wound Type: Puncture periarea Wound Type: excoriation Coccyx Wound Type: Pressure Injury - Therapies Weight Bearing: Weight bearing as tolerated Physical Therapy: Eval and Treat Occupational Therapy: Eval and Treat Speech Therapy: Eval and Treat - Allergies/Procedures Done in Hospital Allergies/Adverse Reactions: Allergies aspirin Allergy (Verified 06/15/18 20:31) Swelling erythromycin base [Erythromycin Base] Allergy (Verified 06/15/18 20:31) Anaphylaxis Penicillins Allergy (Verified 06/15/18 20:31) Anaphylaxis venom-honey bee [bee venom (honey bee)] Adverse Reaction (Verified 06/15/18 20:31) Other Procedures: 2-D Echocardiogram, Intubation - Type of Care/Length of Stay Estimated LOS: Convalescent Care Less Than 30 days Type of Care Needed: Skilled Rehab Potential: Good Prognosis: Good - Additional Orders/Day of Discharge Day of Discharge: 07/05/18 - Dietary and Speech Recommendations Dietitian Recommendations/Changes: Rec diet change to cardiac, low sodium w/ potassium restriction- texture as per speech. - Follow Up Care Primary Care Physician: Jose Kaplan MD [Primary Care Provider] - Please follow up with your Primary Care Physician in: within 1-2 weeks after discharge
--- NOTE | 2018-07-05 13:14 | DS.PCM_ITS ---
Discharge Date and Diagnosis - Problem List Patient Problems: Active and Suspected Problems Severe sepsis (Acute) Acute respiratory failure with hypoxia (Acute) Pneumonia (Acute) Atrial fibrillation with RVR (Acute) LYNNETTE (acute kidney injury) (Acute) Problem with dialysis access (Acute) Date of Admission: 06/15/18 Date of Discharge: 07/05/18 - Primary Discharge Diagnosis Active and Suspected Problems Severe sepsis (Acute) Septic shock Multiorgan failure Acute respiratory failure with hypoxia (Acute) Severe committee acquired pneumonia, streptococcal Atrial fibrillation with RVR (Acute) LYNNETTE (acute kidney injury) (Acute) injury to ATN Problem with dialysis access (Acute) Shock liver - Secondary Discharge Diagnosis Chronic Problems Morbid obesity (Chronic) Tobacco use (Chronic) Hospital Course and Treatment Imaging Results: Clinical Impression(s) from Imaging Studies Chest X-Ray 06/15/18 20:40 IMPRESSION: 1. Right lower lobe airspace disease. Given distinct margin along the superior border, an air-fluid level cannot be excluded. Chest CT may be warranted. 2. Mild infiltrate in the left lung base could also represent pneumonia. Electronically Signed: Alejandro Arizmendi MD at 21:01 EST , Service support , Chest X-Ray 06/16/18 03:40 IMPRESSION: NG tube and ET tube in place with the ET tube 5.3 cm above the isai. Improving consolidations in both lower nodes Electronically Signed: Kwesi Whalen MD at 4:59 EST Tel , Service support , KUB X-Ray 06/16/18 03:40 Chest X-Ray 06/16/18 07:23 IMPRESSION: There is consolidation right midlung zone left lower lobe suspicious for pneumonia. Lines as detailed above. The NG tube could be advanced 5 cm. Electronically Signed: Carline Nieto MD at 10:02 EST Tel , Service support , Chest X-Ray 06/17/18 10:39 IMPRESSION: The newly placed left internal jugular venous catheter is present. The tip is heading cephalad in the mid superior vena cava. The remainder of the examination is unchanged. Electronically Signed: Philip Arriola MD at 11:30 EST , Service support , Chest X-Ray 06/17/18 13:28 IMPRESSION: A new right-sided internal jugular venous line is placed the tip is in the superior vena cava. There is no pneumothorax. Right greater than left lower lobe opacity suspicious for pneumonia. Potentially pleural effusion and atelectasis could have this appearance. Electronically Signed: Carline Nieto MD at 15:22 EST Tel , Service support , Chest X-Ray 06/19/18 16:55 IMPRESSION: Satisfactory position of the right-sided central catheter. Otherwise, no significant change. Electronically Signed: Vidal Velasquez, at 17:22 EST Tel , Service support , Abdomen Ultrasound 06/26/18 14:10 IMPRESSION: No acute findings. Hepatic steatosis with 8.3 cm in greatest dimension heterogenous region in the right lobe of the liver. While this may be related to the steatosis, hepatic protocol CT or MRI suggested to exclude an underlying mass which is also possible. at 1955 Reported and signed by: Dima Manzanares MD Electronically Signed: Dima Manzanares, at 19:56 EST Tel , Service support , Chest X-Ray 06/29/18 11:45 IMPRESSION: 1. Favorable change. Persistent but decreased right pleural effusion (small to moderate on current exam) and pulmonary infiltrate/atelectasis. 2. Trace left pleural fluid Electronically Signed: Alejandro Arizmendi MD at 12:06 EST , Service support , Nephrology Cardiology Critical care General surgery Procedures: 2-D Echocardiogram, - - Tunneled dialysis catheter, central venous access Summary of Care Provided: 58 years old female admitted with shortness of breath, cough and fever, found to have multilobar community-acquired pneumonia complicated by septic shock and her hospital course was complicated by cardiac arrest status post CPR, A. fib with RVR, acute renal failure requiring hemodialysis as well as elevated LFTs secondary to shock liver. Patient was initially managed to septic shock. She went on to develop further multiorgan failure. Blood cultures were negative. Gram stain of tracheal aspirate grew Streptococcus pneumoniae. Patient completed antibiotics in the hospital. Cardiology, ophthalmology surgical technician, teacher aide were consulted. Patient was started on dialysis. She gradually improved and was extubated on 06/19/18. She improved to about 45 L of oxygen with BiPAP at night. Her liver enzymes also improved and plateaued. Patient was skilled for senior care facility. Will be continued on hemodialysis. Patient Problems: Active and Suspected Problems Severe sepsis (Acute) Acute respiratory failure with hypoxia (Acute) Pneumonia (Acute) Atrial fibrillation with RVR (Acute) LYNNETTE (acute kidney injury) (Acute) Problem with dialysis access (Acute) Subjective: The day of discharge, patient was seen and examined. Complains of redness of the right eye with irritation. She has some crusting of the eyelids. Denied any fever or chills or chest pain no dizziness. Objective: Physical exam: General: Alert, Oriented x3, Cooperative, No apparent distress, - - on 4L oxygen HEENT: Atraumatic, PERRLA, EOMI, Normocephalic Oral: Moist Mucosa Neck: Supple, LIJ access Lungs: Normal air movement, Diminished Cardiovascular: Regular rate, Regular Rhythm, Normal S1, Normal S2, No murmurs Abdomen: Bowel Sounds Present, Soft, Non Tender, Non-Distended, No Hepato- splenomegaly Extremities: Edema - +1 generalised Skin: No rashes Musculoskeletal: No Tenderness to Palpation of Joints or Extremities Lymphatic: No Cervical, Supraclavicular, or Inguinal Adenopathy Neurological: Cranial nerves II-XII grossly intact, Neuro grossly intact Psych/Mental Status: Normal Affect, Appropriate - Physical Exam Vital Signs Temp Pulse Resp BP Pulse Ox 98.3 F 63 18 143/90 H 99 07/05/18 08:27 07/05/18 11:11 07/05/18 08:27 07/05/18 08:27 07/05/18 08:27 Oxygen Flow Rate (L/min) 4 Oxygen Delivery Method Nasal Cannula Weight: 101.3 kg Body Mass Index (BMI) 40.4 Intake and Output for Last 24 Hours 07/03/18 07/04/18 07/05/18 23:59 23:59 23:59 Intake Total 510 / 510 1880 / 1880 380 / 380 Output Total 5000 / 5000 0 / 0 Balance -4490 / -4490 1880 / 1880 380 / 380 Laboratory Tests Past 24 Hrs 07/05/18 07/05/18 05:15 05:15 WBC 18.1 H RBC 3.71 L Hgb 10.6 L Hct 32.7 L MCV 88.1 MCH 28.6 MCHC 32.4 RDW 17.2 H RDW Differential 52.0 H Plt Count 108 L MPV 12.8 H Immature Gran % (Auto) 1.200 H Neut % (Auto) 93.5 H Lymph % (Auto) 1.9 L [place] % (Auto) 3.2 Eos % (Auto) 0.1 Baso % (Auto) 0.1 Absolute Neuts (auto) 16.9 H Absolute Lymphs (auto) 0.35 L Total Counted Not Reportable Sodium 138 Potassium 5.1 Chloride 98 Carbon Dioxide 27.0 BUN 112 H* Creatinine 4.66 H Estim Creat Clear Calc 11.64 Est GFR (MDRD) Af Amer 13 L Est GFR (MDRD) Non-Af 10 L BUN/Creatinine Ratio 24.0 H Glucose 128 H Calcium 7.2 L Phosphorus 8.9 H Albumin 2.1 L Discharge Diet: Low fat/ Low Cholesterol, 2000 mg Sodium Diet, Renal Diet Discharge Activity: Return to Normal Activity Home Medications: Medications to take at Discharge Acetaminophen [Tylenol Tablet] 650 mg PO Q6H PRN PRN tablet 07/05/18 Albuterol Aerosols [Ventolin Aerosols] 2.5 mg INHALATION Q2H PRN PRN vial.neb. 07/05/18 Amiodarone HCl [Cordarone] 200 mg PO DAILY tablet 07/05/18 Apixaban [Eliquis] 2.5 mg PO BID tablet 07/05/18 Ciprofloxacin HCl [Ciloxan] 1 drop OP UD #1 bottle 07/05/18 Ipratropium [Atrovent Aerosols] 0.5 mg INHALATION Q4H.RT PRN solution 07/05/18 Menthol/Lanolin/Calamine/Znox [Calmoseptine Ointment] 1 applic TOPICAL TID tube 07/05/18 Nystatin 500,000 unit PO Q6H udc 07/05/18 Nystatin/Triamcin Cream [Mycolog] 1 applic TOPICAL TID tube 07/05/18 Pantoprazole Sodium [Protonix] 40 mg PO BID tablet 07/05/18 Peg 400/Hypromellose/Glycerin [Artificial Tears] 1 drop EACH EYE Q1H PRN bottle 07/05/18 Prednisone See Taper PO DAILY #30 tablet 07/05/18 Quetiapine Fumarate [Seroquel] 25 mg PO BID tablet 07/05/18 Senna/Docusate Sodium [Senokot-S] 2 tablet PO DAILY PRN PRN tablet 07/05/18 Following Prescrptions Were Given to Patient: Ciprofloxacin HCl [Ciloxan] 1 drop OP UD #1 bottle Prednisone See Taper PO DAILY #30 tablet Primary Care Physician: Jose Kaplan MD [Primary Care Provider] - Please follow up with your Primary Care Physician in: within 1-2 weeks after discharge Disposition: [facility] facility Minutes spent on discharge:: 55 Patient Condition:: Stable Medical Necessity - Tobacco Use Smoking Status: Current every day smoker Tobacco Use: Cigarettes Meaningful Use Info Meaningful Use Diagnoses (Choose all that apply): None applicable - CHF STEPHANI/ARB ordered at discharge?: Yes Code Visit Inpatient E&M: 80786 Disch Hosp
--- NOTE | 2018-07-05 13:33 | CASEMGMT ---
MATTHEW faxed orders to [facility]. Patient needs to get dialysis before she leaves. [facility] and arranged for patient to get picked up at 7p via cot. MATTHEW called Korin at [place] and let her know about sisal picker time. SW also let her know patient will need bi-pap for night. She said that is not a problem. MATTHEW had faxed the settings along with the orders. Completed PASRR as patient will likely need longer than 30 days for rehab. RN, secretary receptionist, patient, and family were notified. Plan: d/c to [facility] under skilled level of care on a PASRR as she will be there longer than 30 days. [facility] transported her via cot. Goldie POSADA MSW
--- NOTE | 2018-07-05 14:22 | PN.RENAL_ITS ---
Patient Problems: Active and Suspected Problems Severe sepsis (Acute) Acute respiratory failure with hypoxia (Acute) Pneumonia (Acute) Atrial fibrillation with RVR (Acute) LYNNETTE (acute kidney injury) (Acute) Problem with dialysis access (Acute) Subjective: no new events happy about leaving hospital patient is approved for [facility] with in house dialysis - Physical Exam General: Alert, Oriented x3, Cooperative HEENT: Atraumatic, PERRLA, EOMI, Normocephalic Neck: Supple, No JVD, Negative Carotid Bruits Lungs: Clear to auscultation, Normal air movement Cardiovascular: Regular rate, No murmurs Abdomen: Bowel Sounds Present, Soft, Non Tender Extremities: No edema, Capillary Refill Less than 3 Seconds Skin: No rashes, No breakdown Musculoskeletal: No Tenderness to Palpation of Joints or Extremities Neurological: Cranial nerves II-XII grossly intact Psych/Mental Status: Normal Affect, Appropriate Vital Signs Temp Pulse Resp BP Pulse Ox 98.3 F 63 18 143/90 H 99 07/05/18 08:27 07/05/18 11:11 07/05/18 08:27 07/05/18 08:27 07/05/18 08:27 Oxygen Flow Rate (L/min) 4 Oxygen Delivery Method Nasal Cannula Weight: 101.3 kg Body Mass Index (BMI) 40.4 Intake and Output for Last 24 Hours 07/03/18 07/04/18 07/05/18 23:59 23:59 23:59 Intake Total 510 / 510 1880 / 1880 380 / 380 Output Total 5000 / 5000 0 / 0 Balance -4490 / -4490 1880 / 1880 380 / 380 Laboratory Tests Past 24 Hrs 07/05/18 07/05/18 05:15 05:15 WBC 18.1 H RBC 3.71 L Hgb 10.6 L Hct 32.7 L MCV 88.1 MCH 28.6 MCHC 32.4 RDW 17.2 H RDW Differential 52.0 H Plt Count 108 L MPV 12.8 H Immature Gran % (Auto) 1.200 H Neut % (Auto) 93.5 H Lymph % (Auto) 1.9 L [place] % (Auto) 3.2 Eos % (Auto) 0.1 Baso % (Auto) 0.1 Absolute Neuts (auto) 16.9 H Absolute Lymphs (auto) 0.35 L Total Counted Not Reportable Sodium 138 Potassium 5.1 Chloride 98 Carbon Dioxide 27.0 BUN 112 H* Creatinine 4.66 H Estim Creat Clear Calc 11.64 Est GFR (MDRD) Af Amer 13 L Est GFR (MDRD) Non-Af 10 L BUN/Creatinine Ratio 24.0 H Glucose 128 H Calcium 7.2 L Phosphorus 8.9 H Albumin 2.1 L Medical Necessity - Tobacco Use Smoking Status: Current every day smoker Tobacco Use: Cigarettes Assessment/Plan All Active Problems Severe sepsis (Acute) Acute respiratory failure with hypoxia (Acute) Pneumonia (Acute) Atrial fibrillation with RVR (Acute) LYNNETTE (acute kidney injury) (Acute) Problem with dialysis access (Acute) 1-Acute kidney injury. Most probably related to ischemic ATN Patient is currently dependent on dialysis for volume and metabolic support. Remains anuric. No recovery of kidney function. Dialysis started on June 17. . Plan Tunneled line in place HD today [facility] They only have MWF schedule, no TTS schedule. patient has to be dialyzed here today before dc. ok to dc after HD today
--- NOTE | 2018-07-05 18:41 | NURSING ---
REPORT GIVEN TO LULÚ SHAFFER AT [facility]
--- NOTE | 2018-07-05 19:03 | DIALYSIS ---
Hemodialysis complete. 3.5 hour run, 2k bath. Net fluid removed = 3300 ml. Patient tolerated HD tx fairly well. Patient needed constant encouragement to complete HD tx. Access: Right chest CVC. Dressing changed per policy. Site benign, dressing dry and intact. Lumen flushed with NS, filled to volume with Heparin, capped and clamped. Report given to primary RNAwilda
== END 2018-07-05 20:15 | disposition skilled nursing facility (03) | DRG 720 ==
LOC: ED 20:48 → ICU 22:04 → PCU 06-24 17:25
PROVIDERS: Hospitalist; Internal Medicine; Internal Medicine Cardiovascular Disease; Internal Medicine Critical Care Medicine; Internal Medicine Nephrology; Surgery; Admitting Provider Family Medicine; Emergency Provider Emergency Medicine; Family Provider Family Medicine; PCP Family Medicine; Visit Provider Internal Medicine
PROC: 0JH63XZ Insertion of Tunneled Vascular Access Device into Chest Subcutaneous Tissue and Fascia, Percutaneous Approach (ICD-10-PCS; principal; 2018-06-19 15:45)
DX: A40.3 Sepsis due to Streptococcus pneumoniae (principal); J10.08 Influenza due to other identified influenza virus with other specified pneumonia; J13 Pneumonia due to Streptococcus pneumoniae; R65.21 Severe sepsis with septic shock; J96.01 Acute respiratory failure with hypoxia; E66.01 Morbid (severe) obesity due to excess calories; Z68.41 Body mass index [BMI] 40.0-44.9, adult; E87.1 Hypo-osmolality and hyponatremia; N17.0 Acute kidney failure with tubular necrosis; K72.00 Acute and subacute hepatic failure without coma; I46.9 Cardiac arrest, cause unspecified; F17.210 Nicotine dependence, cigarettes, uncomplicated; I48.0 Paroxysmal atrial fibrillation; J96.02 Acute respiratory failure with hypercapnia; G93.41 Metabolic encephalopathy; E87.5 Hyperkalemia; E83.39 Other disorders of phosphorus metabolism; T82.9XXA Unspecified complication of cardiac and vascular prosthetic device, implant and graft, initial encounter; I24.8 Other forms of acute ischemic heart disease; I10 Essential (primary) hypertension
CPT/HCPCS: 31500; 31720; 36415; 36600; 71045; 71046; 74018; 76000; 76705; 80048; 80053; 80069; 80076; 81001; 82550; 82570; 82803; 82962; 83036; 83605; 83735; 83880; 84100; 84300; 84439; 84443; 84484; 85025; 85027; 85384; 85610; 85730; 86704; 86706; 87040; 87070; 87077; 87086; 87186; 87205; 87340; 87449; 87633; 87641; 90937; 92526; 92610; 92950; 93005; 93306; 93970; 94002; 94003; 94640; 94660; 95831; 97110; 97162; 97165; 97530; 97535; 97802; 99282; J2185; J2997; J7030; J7040; J7050; J7120; Q9957; A4216; C1750; C1751; C1752; C8929; G0257; J0153; J2405; J3490

== ENCOUNTER 2018-07-28 20:08 | Inpatient (IN) | payer MEDICAID, SELFPAY ==
[2018-06-15 23:30] VITALS: BMI 40.4
[2018-07-28 20:12] VITALS: BP 147/79; PULSE 107; RESP 20; TEMP 36.6; O2SAT 84; BMI 42.9
--- NOTE | 2018-07-28 20:43 | ED.VISSUMM ---
- ER Visit Summary Date of Service: 07/28/18 Chief Complaint: Weakness History of Present Illness: The patient is a 58 F who signed herself out of a [facility] today in [place]. She had been wearing 3 or 4 L of oxygen and was not sent home with oxygen. She has not been walking in the hallways and was in the [facility] because of leg weakness and needed further therapy. Patient states she was wheeled to the car, was able to stand and pivot to the car. She was driven home by her daughter. Patient was too weak to get out of the car. EMS was called. Past history significant for A. fib, bipolar, schizoaffective disorder, hypertension, pneumonia. Patient is currently on Eliquis. Physical Examination: Blood pressure is 147/79, temperature 97.8, heart rate 107, respiratory rate 20, pulse ox 84% on room air. She is 97% on 3 L nasal cannula at the time of my exam. Head neck examination grossly unremarkable. Heart is regular rate and rhythm. Lungs sounds with mild rhonchi at the bases. Abdomen is soft, obese, nontender. Neuro exam reveals the patient to be alert and oriented. She has weakness in both legs. No focal neurologic findings noted. Test Results: CBC was normal white count. Hemoglobin is 7.9. This is compared to hemoglobin 10.6 on July 05. Chemistry studies reveal a sodium of 146, potassium 3.4. Portable chest x-ray per my read shows chronic changes. Emergency Department Course and Treatment: Patient was seen by social work and will require overnight stay for repeat evaluation and placement. Patient advised hospitalist that she is been having black stool and with her drop in hemoglobin will need to have this further evaluated as well. Treatment Plan: [] Disposition: Admit Impression: 1. Anemia 2. Weakness 3. Hypoxia This note was generated with [employer] software. It may contain incorrect words, spelling, and punctuation that were not noted in review of the chart prior to signing ED Disposition - Plan for ED Patient:
--- NOTE | 2018-07-28 20:56 | RAD_ITS ---
STUDY: X-RAY CHEST REASON FOR EXAM: Female, 58 years old. Weakness TECHNIQUE: Portable chest COMPARISON: 06/29/2018 FINDINGS: There is significant improvement of the pulmonary edema pattern. There is decrease in size of the right pleural effusion. There is improving left lower lobe infiltrate. There is 6 mm left upper lobe nodular density. Stable mild cardiomegaly Normal mediastinum and mary. Normal visualized pulmonary arteries. Normal visualized aortic arch and descending thoracic aorta. There are new multiple right lateral rib fractures. There is no pneumothorax. There is no demonstrated abnormality of the visualized soft tissue structures of the upper abdomen. RAD/Chest 1 View (Portable) IMPRESSION: New multiple right lateral rib fractures, no pneumothorax Significant improvement of the pulmonary edema pattern with decreased size right pleural effusion, improving left lower lobe infiltrate 6 mm left upper lobe pulmonary nodular density suspicious for pulmonary nodule, this could also represent a summation artifact due to overlying ribs or pulmonary vessel. CT chest follow-up is recommended Stable mild cardiomegaly Electronically Signed: Adonis Calhoun, at 22:29 EDT Tel , Service support ,
--- NOTE | 2018-07-28 20:58 | CM.ED ---
SOCIAL WORK NOTE REFERRAL FROM DR. CARRILLO. FACE TO FACE WITH THE PT AND HER DAUGHTER TO DISCUSS NEEDS. INTRODUCED SELF AND ROLE AT [facility]. PT REPORTS THAT SHE SIGNED HERSELF OUT AMA BECAUSE THE STAFF AT THE FACILITY IN [facility] WERE MEAN STATES THAT THEY DID NOT HELP HER ROLL IN BED OR SHOWER. DAUGHTER STATES SHE HEARD THEM BEING CRUEL TO HER ON THE PHONE. PT WAS UNABLE TO GET OUT OF THE VEHICLE WHEN SHE RETURNED TO HER DAUGHTERS TODAY AND IS NOW COMPLAINING OF AN INABILITY TO FEEL HER LEFT THIGH. DISCUSS THAT SHE WAS TRANSFERRED TO [facility] D/T NEED FOR REHABILITATION AND DIALYSIS ON SITE. DAUGHTER AND PT REPORT THAT SHE WENT TO [facility] ABOUT A WEEK AGO AND THEY SAID HER KIDNEY FUNCTION WAS GOOD AND REMOVED THE PORT AND SHE NO LONGER REQUIRES DIALYSIS. PT AND DAUGHTER STATES THAT THEY WOULD LIKE THE PT TO GO TO A SNF LOCALLY FOR A FEW WEEKS BEFORE RETURNING HOME WITH THE DAUGHTER. [facility]. DISCUSS THE PROCESS OF FINDING AN ACCEPTING FACILITY AND OBTAINING A PRE-CERT. UNDERSTANDING EXPRESSED. DAUGHTER AND PT STATE THAT THE PT'S BROTHER IS SIGNING OVER HCPOA TO THE PT'S DAUGHTER AND THEY REPORT THAT THEY BOTH WANT THIS. HCPOA AND LIVING WILL PAPERWORK PROVIDED FOR REVIEW. DAUGHTER AND PT'S SISTER LISTED IN CHART CONTACTS PER HER REQUEST. PT STATES THAT SHE HAS A WALKER AT HOME AND WILL NEED A WHEELCHAIR AND OXYGEN WHEN SHE RETURNS. DISCUSS THAT WE CANNOT GET THESE THROUGH INSURANCE UNTIL SHE IS DONE AT THE SNF THEY WILL NOT PAY FOR BOTH AT THE SAME TIME. UNDERSTANDING EXPRESSED. NO FURTHER NEEDS AT THIS TIME, AND BOTH AWARE THAT SW ON ASSIGNED UNIT WILL FOLLOW-UP TOMORROW. PLAN: LOCAL SNF FOR REHABILITATION PRIOR TO RETURN HOME WITH DAUGHTER. Elva Ortega, MANAGER CASE, SWETHA
[2018-07-28 21:12] LABS: Hematocrit 25.8 % (37-47); Hemoglobin 7.9 g/dl (12.0-15.0); Mean Corp Hgb Conc 30.6 g/gl (32-36); Mean Corpuscular Hgb 29.2 pg (27.0-32.0); Mean Corpuscular Volume 95.2 fL (81-99); Mean Platelet Vol. 8.7 fl (6.2-12.0); Platelet Count 185 K/mm3 (150-450); RBC Distribution Width CV 18.8 % (11.6-14.6); RBC Distribution Width SD 65.5 fl (35.1-43.9); Red Blood Count 2.71 M/mm3 (4.2-5.4); White Blood Count 9.7 K/mm3 (4.4-11.0)
[2018-07-28 21:28] LABS: Anion Gap 5 (5-15); BUN 53 mg/dL (7-18); BUN/Creat Ratio 40.8 RATIO (10-20); Calcium,Total 7.9 mg/dL (8.5-10.1); Chloride 113 mmol/L (98-107); EST Glomerular Filtration Rate 45 mL/min (>60); Est Glom Filt Rate - Afr Amer 54 mL/min (>60); Estimated Creatinine Clearance 41.73 ml/min; Glucose 91 mg/dL (74-106); Potassium 3.4 mmol/L (3.5-5.1); Sodium Level 146 mmol/L (136-145)
[2018-07-28 21:32] LABS: Differential Indicated MANUAL DIFF; POSITIVE COUNT YES; POSITIVE DIFFERENTIAL NO; POSITIVE MORPHOLOGY YES
[2018-07-28 21:37] LABS: Lymphocyte 13 % (19-41); Metamyelocyte 3 % (0-1); Monocyte 6 % (0-10); Myelocyte 7 (0-0); Neutrophil-Band 3 % (0-5); Neutrophil-Segmented 67 % (47-70); Promyelocyte 1 (0-0); Total Cells Counted 100 (MANUAL DIFF)
[2018-07-28 21:39] LABS: Anisocytosis RARE; Macrocytosis RARE; Platelet Estimate ADEQUATE (ADEQ)
[2018-07-28 21:43] LABS: Absolute Lymphocyte Count 1.26 X10^3/ul (0.83-4.51); Absolute Neutrophil Count 6.8 X10^3/uL (2.0-7.7)
[2018-07-28 22:04] VITALS: BP 165/86; PULSE 100; RESP 18; O2SAT 96
[2018-07-28 22:34] VITALS: BMI 38.5; BMI 42.9
--- NOTE | 2018-07-28 23:00 | PCM.HP.STD ---
Problem List (1) Generalized weakness Status: Acute History of Present Illness Date of Admission: 07/28/18 Chief Complaint: Generalized weakness The patient is a 58 year old F who was seen in the emergency room at [facility] with complaints of generalized weakness. She had been in a [facility] facility in [place] until today when she checked herself out of the facility. She states they were not treating her right at the facility. Patient is not been able to ambulate for approximately a month since she was hospitalized for respiratory failure and the pneumonia according to the daughter who is in the room at the time of my examination. Patient was able to get into the daughter's car at the alf but when she reached her home, patient was too weak to get out of the car and squad was called. Evaluation in the emergency room included labs which showed a normal white blood cell count, hemoglobin was low at 7.9, chemistry profile was remarkable for a potassium of 3.4, sodium of 146, chloride of 113, creatinine 1.3, BUN of 53. Patient had a chest x-ray performed which showed right lateral rib fractures which were new as compared to a chest x-ray taken on 06/29/18. There is noted to be a left lower lobe infiltrate which was improving over the past chest x-ray, there is also noted to be a 6 mm left upper lobe nodular density. This nodular density could also represent an artifact, CT scan of the chest was recommended for follow-up. Patient was placed and observation status for generalized weakness and anemia. Patient had been on dialysis for a time at the [facility] facility, she states she is no longer receiving dialysis-her creatinine of 1.3 was vastly improved over her last creatinine done at this facility which was 4.6. Patient will need further skilled care in another facility, she refuses to go back to the one in [place] Past Medical History Past Medical History (Chronic Problems): Chronic Problems Morbid obesity (Chronic) Tobacco use (Chronic) Allergies aspirin Allergy (Verified 07/28/18 20:11) Swelling erythromycin base [Erythromycin Base] Allergy (Verified 07/28/18 20:11) Anaphylaxis Penicillins Allergy (Verified 07/28/18 20:11) Anaphylaxis venom-honey bee [bee venom (honey bee)] Adverse Reaction (Verified 07/28/18 20:11) Other Home Medications: Ambulatory Orders Medication Instructions Recorded Acetaminophen [Tylenol Tablet] 650 mg PO Q6H PRN PRN tablet 07/05/18 Albuterol Aerosols [Ventolin 2.5 mg INHALATION Q2H PRN PRN 07/05/18 Aerosols] vial.neb. Amiodarone HCl [Cordarone] 200 mg PO DAILY tablet 07/05/18 Apixaban [Eliquis] 2.5 mg PO BID tablet 07/05/18 Ciprofloxacin HCl [Ciloxan] 1 drop OP UD #1 bottle 07/05/18 Ipratropium [Atrovent Aerosols] 0.5 mg INHALATION Q4H.RT PRN 07/05/18 solution Menthol/Lanolin/Calamine/Znox 1 applic TOPICAL TID tube 07/05/18 [Calmoseptine Ointment] Nystatin 500,000 unit PO Q6H udc 07/05/18 Nystatin/Triamcin Cream [Mycolog] 1 applic TOPICAL TID tube 07/05/18 Pantoprazole Sodium [Protonix] 40 mg PO BID tablet 07/05/18 Peg 400/Hypromellose/Glycerin 1 drop EACH EYE Q1H PRN bottle 07/05/18 [Artificial Tears] Prednisone See Taper PO DAILY #30 tablet 07/05/18 Quetiapine Fumarate [Seroquel] 25 mg PO BID tablet 07/05/18 Senna/Docusate Sodium [Senokot-S] 2 tablet PO DAILY PRN PRN tablet 07/05/18 Surgical History: - - Left ankle surgery, left arm carpal tunnel surgery, tonsillectomy. 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 Paternal History Items: - - Patient denies any marked maternal or paternal family history including heart disease, diabetes or cancer. Review of Systems Constitutional: Reports: Weakness, Fatigue. Denies: Anorexia, Chills, Fever, Night Sweats, Malaise, Weight Change Eyes: Denies: Cataracts, Conjunctivae Inflammation, Double vision, Drainage HEENT: Denies: Difficulty Swallowing, Dysphasia, Ear Pain, Eye Pain, Hearing Changes, Nasal bleeding, Nasal Congestion, Post Nasal Drip Cardiovascular: Denies: Chest Pain, Claudication, Chest Pressure, Chest Tightness, Edema, Heaviness, Light Headedness, Palpitations Respiratory: Reports: Shortness of breath upon exertion. Denies: Cough, Hemoptysis, Pleuritic Pain, Shortness of breath at rest, Sputum production, Wheezing Gastrointestinal: Denies: Abdominal Pain, Constipation, Diarrhea, Hematemesis, Hematochezia, Nausea, Melena, Vomiting Genitourinary: Reports: Incontinence. Denies: Dysuria, Frequency, Hematuria, Hesitancy, Nocturia, Retention, Urgency Gynecological: Denies: Breast symptoms Musculoskeletal: Denies: Back Pain, Foot Pain, Hand Pain, Joint Pain, Joint stiffness, Joint swelling, Joint Tenderness, Leg Pain Skin: Denies: Dryness, Jaundice, Pruritis, Rash Neurological: Reports: Balance problems, Incoordination, - - Patient is unable to ambulate. Denies: Blurred vision, Double vision, Slurred speech, Confusion, Difficulty swallowing, Focal weakness, Headaches, Numbness, Tingling Psychiatric: Denies: Anxiety, Depression, Homicidal Ideations, Suicidal Ideations Endocrine: Denies: Change in Body Habitus, Heat/ Cold Intolerance, Polydipsia, Polyuria Hematologic/ Lymphatic: Denies: Adenopathy, Anemia, Easy Bruising, Easy Bleeding, Petechiae, Purpura VTE Information - Inpt Only VTE Present on Admission: No VTE Mechan Device Prophylaxis: None VTE Pharm Prophylaxis ordered?: No Reason prophylaxis not ordered:: Medical Contraindication - Patient on Eliquis Patient Problems: Active and Suspected Problems Generalized weakness (Acute) - Physical Exam General: Alert, Oriented x3, Cooperative, No apparent distress, Well developed, Well nourished HEENT: Atraumatic, PERRLA, EOMI, Normocephalic Oral: Moist Mucosa Neck: Supple, No JVD, Negative Carotid Bruits, No Nuchal Rigidity, Trachea Midline, Thyroid Normal Size and Texture Lungs: Clear to auscultation, Normal air movement, No rhonchi, No wheeze, No rales Cardiovascular: Regular rate, Regular Rhythm, Normal S1, Normal S2, No murmurs, No Ectopic Activity, PMI Normal, No rub noted, No Gallop Abdomen: Bowel Sounds Present, Soft, Non Tender, Non-Distended, Obese, No hernias noted Extremities: No clubbing, No cyanosis, Capillary Refill Less than 3 Seconds, Edema - Generalized +2 mm edema is noted over the lower legs Skin: No rashes, Ulcer/ Wound - There is a small pressure wound on the patient's coccyx-this measures approximately 1-1/2 cm by half centimeter deep-it appears to be a stage III pressure injury, no purulent material is noted from the area Musculoskeletal: No Tenderness to Palpation of Joints or Extremities Neurological: Cranial nerves II-XII grossly intact, Neuro grossly intact, Sensory exam intact to light touch and pain, - - Patient is unable to walk Psych/Mental Status: Normal Affect, Appropriate, Alert and oriented to time, place, person, mood and affect Vital Signs Temp Pulse Resp BP Pulse Ox 97.8 F 100 18 165/86 H 96 07/28/18 20:12 07/28/18 22:04 07/28/18 22:04 07/28/18 22:04 07/28/18 22:04 Oxygen Delivery Method Room Air Weight: 113.398 kg Body Mass Index (BMI) 42.9 Laboratory Tests Past 24 Hrs 07/28/18 07/28/18 20:45 20:45 WBC 9.7 RBC 2.71 L Hgb 7.9 L Hct 25.8 L MCV 95.2 MCH 29.2 MCHC 30.6 L RDW 18.8 H RDW Differential 65.5 H Plt Count 185 MPV 8.7 Neut % (Auto) Not Reportable Absolute Neuts (auto) 6.8 Absolute Lymphs (auto) 1.26 Total Counted 100 Neutrophils % (Manual) 67 Band Neutrophils % 3 Lymphocytes % (Manual) 13 L Monocytes % (Manual) 6 Metamyelocytes % 3 H Myelocytes % 7 H Promyelocytes % 1 H Diff Path Review May foll Platelet Estimate ADEQUATE Anisocytosis RARE Macrocytosis RARE Sodium 146 H Potassium 3.4 L Chloride 113 H Carbon Dioxide 28.0 Anion Gap 5 BUN 53 H Creatinine 1.30 H Estim Creat Clear Calc 41.73 Est GFR (MDRD) Af Amer 54 L Est GFR (MDRD) Non-Af 45 L BUN/Creatinine Ratio 40.8 H Glucose 91 Calcium 7.9 L Assessment/Plan All Active Problems Severe sepsis (Acute) Acute respiratory failure with hypoxia (Acute) Pneumonia (Acute) Atrial fibrillation with RVR (Acute) LYNNETTE (acute kidney injury) (Acute) Problem with dialysis access (Acute) Generalized weakness (Acute) #1 generalized weakness and debility-patient will be placed and observation status on MedSurg 2, she will be seen by PT and OT, she will need placement in another [facility] facility. #2 iron deficiency anemia-patient will receive IV Venofer, labs will be rechecked #3 paroxysmal atrial fib-patient is on Eliquis presently #4 chronic respiratory failure-patient is currently on 3.5 L nasal cannula-daughter states that since her past hospitalization before going to the alf that patient was on oxygen. #5 status post cardiac arrest-patient's daughter states that the patient had 2 episodes of cardiac arrest during her hospitalization in June 2018 #6 elevated creatinine secondary to acute kidney injury from ATN-labs will be monitored #7 hypokalemia-mild, labs will be rechecked #8 obesity Code Visit OBSV E&M: 11314 Initial observation care L3
[2018-07-28 23:11] VITALS: BP 146/70; PULSE 94; RESP 20; TEMP 36.4; O2SAT 96
[2018-07-28 23:28] LABS: Iron 47 ug/dL (50-170); Iron Binding Capacity,Total 145 ug/dL (250-450); PERCENT IRON SATURATION 32.4 % (15.0-55.0)
[2018-07-29] VITALS (14 sets, daily range): BP systolic 114–152; BP diastolic 63–80; PULSE 89–110; RESP 16–20; TEMP 36.3–37.3; O2SAT 92–98
--- NOTE | 2018-07-29 00:08 | NURSING ---
Called [facility] to request patient medication list. Fax number given.
[2018-07-29] MEDS: 0.9% NaCl Peripheral Flush Adult/Peds IV ×2 (02:50→17:30)
[2018-07-29 06:17] LABS: Hematocrit 22.3 % (37-47); Mean Corp Hgb Conc 31.4 g/gl (32-36); Mean Corpuscular Hgb 30.2 pg (27.0-32.0); Mean Corpuscular Volume 96.1 fL (81-99); Platelet Count 171 K/mm3 (150-450); RBC Distribution Width CV 18.9 % (11.6-14.6); RBC Distribution Width SD 66.3 fl (35.1-43.9); Red Blood Count 2.32 M/mm3 (4.2-5.4); White Blood Count 8.4 K/mm3 (4.4-11.0)
[2018-07-29 06:27] LABS: Differential Indicated MANUAL DIFF; POSITIVE COUNT YES; POSITIVE DIFFERENTIAL NO; POSITIVE MORPHOLOGY YES
[2018-07-29 06:29] LABS: Anion Gap 6 (5-15); BUN 50 mg/dL (7-18); Calcium,Total 7.8 mg/dL (8.5-10.1); Chloride 114 mmol/L (98-107); Creatinine, Serum 1.25 mg/dL (0.55-1.02); EST Glomerular Filtration Rate 47 mL/min (>60); Est Glom Filt Rate - Afr Amer 57 mL/min (>60); Glucose 105 mg/dL (74-106); Potassium 3.5 mmol/L (3.5-5.1); Sodium Level 147 mmol/L (136-145)
[2018-07-29 07:11] LABS: Basophil 1 % (0-1); Lymphocyte 18 % (19-41); Metamyelocyte 4 % (0-1); Monocyte 3 % (0-10); Myelocyte 3 (0-0); Neutrophil-Band 5 % (0-5); Neutrophil-Segmented 66 % (47-70); Total Cells Counted 100 (MANUAL DIFF)
[2018-07-29 07:12] LABS: Absolute Lymphocyte Count 1.51 X10^3/ul (0.83-4.51); Anisocytosis 2+; Lymphocyte # 1.51 X10^3/ul (4.0); Platelet Estimate ADEQUATE (ADEQ); Red Cell Morphology NORM C+C NORMAL (NORM C&C)
[2018-07-29 07:13] LABS: Neutrophil # 5.96 X10^3/uL (2.7-7.7)
[2018-07-29] MEDS: Pantoprazole Sodium 40 MG Tablet PO ×2 (08:33→23:04)
[2018-07-29] MEDS: Amiodarone 200 MG Tablet PO (08:33)
[2018-07-29] MEDS: QUEtiapine 25 MG Tablet PO ×2 (08:33→23:04)
--- NOTE | 2018-07-29 09:06 | MRI_ITS ---
STUDY: MRI LUMBAR SPINE WITHOUT CONTRAST REASON FOR EXAM: Female, 58 years old. chronic low back pain, leg weakness, h/o recent septic shock,. TECHNIQUE: Standardized fat and water weighted pulse sequences were obtained in the sagittal and axial planes. COMPARISON: X-ray dated December 16, 2014 FINDINGS: T12-L1: There is minimal disc space narrowing and endplate spondylosis. There is no significant disc herniation, central canal or foraminal stenosis. Normal lumbar lordosis. There is no substantial scoliosis. Normal conus medullaris that terminates at the L1 L1-2: There is minimal disc space narrowing and endplate spondylosis. There is no significant disc herniation, central canal or foraminal stenosis. L2-3: There is minimal disc space narrowing and endplate spondylosis. There is no significant disc herniation, central canal or foraminal stenosis. L3-4: There is mild disc space narrowing and endplates spondylosis. There is mild disc bulge and facet arthropathy with moderate central canal and mild bilateral foraminal stenosis. L4-5: There is minimal disc space narrowing and endplate spondylosis. There is no significant disc herniation, central canal or foraminal stenosis. L5-S1: There is mild disc space narrowing and endplate spondylosis. There is no significant disc herniation, central canal or foraminal stenosis. Normal visualized sacral ala. MRI/Spine Lumbar (Routine) IMPRESSION: L3/L4: Moderate central canal stenosis. Electronically Signed: Lily Braun MD at 9:28 EDT Tel , Service support ,
--- NOTE | 2018-07-29 09:09 | PCM.PN.HOSP ---
Patient Problems: Active and Suspected Problems Generalized weakness (Acute) Subjective: Patient was seen and examined. Complains of [facility] the [facility]. She has developed a pressure injury in his sacral region. She is wondering why she cannot walk. States she feels the weakness in her lower extremity have gotten worse and cannot feel anything below her waist. She denied any fever or chills or continues of urine or stool. Her daughter who is at her bedside, patient has been having dark tarry stools, recently admitted a week ago to in [facility], was reportedly transfused blood. Vitals/I&O's: Vital Signs Temp Pulse Resp BP Pulse Ox 97.4 F L 89 18 135/68 H 98 07/29/18 08:40 07/29/18 08:40 07/29/18 08:40 07/29/18 08:40 07/29/18 08:40 Oxygen Flow Rate (L/min) 2 Oxygen Delivery Method Nasal Cannula Weight: 102.4 kg Body Mass Index (BMI) 38.5 Intake and Output for Last 24 Hours 07/27/18 07/28/18 07/29/18 23:59 23:59 23:59 Intake Total 757 / 757 Balance 757 / 757 General: Alert, Oriented x3, Cooperative, No apparent distress, - - On 2 L of oxygen, obese HEENT: Atraumatic, PERRLA, EOMI, Normocephalic Oral: Moist Mucosa Neck: Supple Lungs: Diminished Cardiovascular: Regular rate, Regular Rhythm, Normal S1, Normal S2, No murmurs Abdomen: Bowel Sounds Present, Soft, Non Tender, Non-Distended, No Hepato-splenomegaly Extremities: Edema - bilateral trace pedal edema Skin: No rashes, No breakdown Musculoskeletal: No Tenderness to Palpation of Joints or Extremities Lymphatic: No Cervical, Supraclavicular, or Inguinal Adenopathy Neurological: Cranial nerves II-XII grossly intact Psych/Mental Status: Normal Affect, Appropriate Laboratory Results 07/28/18 20:45: WBC 9.7, RBC 2.71 L, Hgb 7.9 L, Hct 25.8 L, MCV 95.2, MCH 29.2, MCHC 30.6 L, RDW 18.8 H, RDW Differential 65.5 H, Plt Count 185, MPV 8.7, Neut % (Auto) Not Reportable, Absolute Neuts (auto) 6.8, Absolute Lymphs (auto) 1.26, Total Counted 100, Neutrophils % (Manual) 67, Band Neutrophils % 3, Lymphocytes % (Manual) 13 L, Monocytes % (Manual) 6, Metamyelocytes % 3 H, Myelocytes % 7 H, Promyelocytes % 1 H, Diff Path Review August foll, Platelet Estimate ADEQUATE, Anisocytosis RARE, Macrocytosis RARE 07/28/18 20:45: Sodium 146 H, Potassium 3.4 L, Chloride 113 H, Carbon Dioxide 28.0, Anion Gap 5, BUN 53 H, Creatinine 1.30 H, Estim Creat Clear Calc 41.73, Est GFR (MDRD) Af Amer 54 L, Est GFR (MDRD) Non-Af 45 L, BUN/Creatinine Ratio 40.8 H, Glucose 91, Calcium 7.9 L 07/28/18 20:45: Iron 47 L, TIBC 145 L, Iron Saturation 32.4 07/29/18 05:38: Sodium 147 H, Potassium 3.5, Chloride 114 H, Carbon Dioxide 27.0, Anion Gap 6, BUN 50 H, Creatinine 1.25 H, Estim Creat Clear Calc 43.40, Est GFR (MDRD) Af Amer 57 L, Est GFR (MDRD) Non-Af 47 L, BUN/Creatinine Ratio 40.0 H, Glucose 105, Calcium 7.8 L 07/29/18 05:38: WBC 8.4, RBC 2.32 L, Hgb 7.0 L, Hct 22.3 L, MCV 96.1, MCH 30.2, MCHC 31.4 L, RDW 18.9 H, RDW Differential 66.3 H, Plt Count 171, MPV 9.0, Neut % (Auto) Not Reportable, Absolute Neuts (auto) 6.0, Absolute Lymphs (auto) 1.51, Total Counted 100, Neutrophils % (Manual) 66, Band Neutrophils % 5, Lymphocytes % (Manual) 18 L, Monocytes % (Manual) 3, Basophils % (Manual) 1, Metamyelocytes % 4 H, Myelocytes % 3 H, Diff Path Review August foll, Platelet Estimate ADEQUATE, RBC Morphology NORM C+C, Anisocytosis 2+ Current Medications Acetaminophen (Tylenol) 650 mg PO Q6H PRN PRN PRN Reason: PAIN Acetaminophen (Tylenol) 650 mg PO Q6H PRN PRN PRN Reason: Mild Pain (1-3)/Temp > 100.7 F Albuterol Sulfate (Ventolin Aerosols) 2.5 mg INHALATION Q2H PRN PRN PRN Reason: SHORTNESS OF BREATH Amiodarone HCl (Cordarone) 200 mg PO DAILY [facility] Last Admin: 07/29/18 08:33 Dose: 200 mg Calamine/Phenol (Calmoseptine Ointment) 1 applic TOPICAL TID [facility]; Protocol Ipratropium [place] (Atrovent) 0.5 mg INHALATION Q4H PRN PRN PRN Reason: SOB &/OR WHEEZING Nutritional Formula (Lactose Free) (Ensure Enlive) 120 ml PO 4X/DAY [facility] Last Admin: 07/29/18 08:38 Dose: 120 ml Ondansetron HCl (Zofran) 4 mg IV Q8H PRN PRN PRN Reason: NAUSEA Pantoprazole Sodium (Protonix) 40 mg PO BID [facility] Last Admin: 07/29/18 08:33 Dose: 40 mg Quetiapine Fumarate (Seroquel) 25 mg PO BID [facility] Last Admin: 07/29/18 08:33 Dose: 25 mg Senna/Docusate Sodium (Senokot-S, Yanet-Colace) 2 tablet PO DAILY PRN PRN PRN Reason: CONSTIPATION Sodium Chloride () 5 - 15 ml IV UD PRN PRN Reason: SALINE FLUSH Last Admin: 07/29/18 02:50 Dose: 10 ml Medical Necessity - Tobacco Use Smoking Status: Current every day smoker Tobacco Use: Cigarettes Assessment/Plan All Active Problems Severe sepsis (Acute) Acute respiratory failure with hypoxia (Acute) Pneumonia (Acute) Atrial fibrillation with RVR (Acute) LYNNETTE (acute kidney injury) (Acute) Problem with dialysis access (Acute) Generalized weakness (Acute) 58-year-old with multiple comorbidities, recently admitted with AK I, septic shock, discharged to [facility] facility. Patient reportedly signed out AMA, but was readmitted to the hospital with progressive weakness. 1. Acute iron deficiency anemia secondary to acute GI bleed, status post IV Venofer, recent history of GI bleed, Recent admission to [facility], refused GI workup We will transfuse 2 units packed RBCs, trend H&H General surgery consulted, off Eliquis, continue on PPI 2. Debility secondary to concurrent comorbidities, worsening bilateral lower extremity weakness, history of chronic back pain, We will get MRI of the lumbar spine, PT and OT to evaluate and treat 3. Paroxysmal atrial fibrillation, patient was on Eliquis, on amiodarone 4. Recent AK I secondary to ATN, and was on dialysis, creatinine improved to 1.25 5. Hypokalemia, replaced, recheck in am 6. Hyponatremia likely secondary to dehydration, will trend labs 7. Recent cardiac arrest status post septic shock 8. DVT PPx -SCDs Code Visit Inpatient E&M: 51483 Subs Hosp L3
[2018-07-29 09:28] LABS: Hematocrit 21.7 % (37-47); Hemoglobin 6.6 g/dl (12.0-15.0)
--- NOTE | 2018-07-29 09:45 | CASEMGMT ---
Social Work Note MATTHEW met with pt and pt's daughter Maryan and additional family members present in room. SW introduced self and role at [facility]. Pt is alert and orientated x3 and gave this worker permission to speak to her in front of her guest. Pt's daughter Maryan states she is pt's HCPOA and Maryan and pt confirm the plan is for pt to go to [facility]. SW explained referral process and that pt will need pre-cert from insurance. Pt and Maryan state understanding. SW to fax referral to [facility] once PT/OT evaluations are available. Plan: SNF pending acceptance and pre-cert Ailyn Parrish BUTTON BRADDER, RETAIL SALES ASSISTANT
[2018-07-29] MEDS: LORazepam 1 MG Tablet 2 MG PO (09:50)
--- NOTE | 2018-07-29 09:59 | NURSING ---
wound photo: sacrum
--- NOTE | 2018-07-29 10:12 | CON.PCM_ITS ---
Reason for Consult Date of Consultation: 07/29/18 History of Present Illness: The patient is a 58 year old F presents to the ER per patient due to not being able to move her legs. On workup patient was also found to have a hemoglobin of 7.9 and the last hemoglobin was 7.0. Patient was previously admitted to the ICU at the end of May/beginning of June. Patient did go to extended care facility in [place] after this. Patient states that she did go to the hospital in [place] she thought was [facility]. Patient has not the best historian. She does admit to black stools. Per [facility] records patient went to [facility] looks like she was admitted the through the due to anemia and melena- Hb 4.8 on admit. Patient did receive 7 units of packed red blood cells during this time. Per the notes patient refused endoscopy by GI. She denies having endoscopy done previously but does states she cannot tolerate the colonoscopy prep. She may be amenable to EGD however she was upset that she was changed to a clear diet as she is planned to have [facility]. Previous notes state that patient was scheduled for an EGD and she refused at the morning of the EGD. Patient's hemoglobin was 7.3 on day of discharge which was 07/24/18. Per records the eliquis had been held and was on a PPI. Past Medical History Past Medical History (Chronic Problems): Chronic Problems Morbid obesity (Chronic) Tobacco use (Chronic) Allergies aspirin Allergy (Verified 07/28/18 20:11) Swelling erythromycin base [Erythromycin Base] Allergy (Verified 07/28/18 20:11) Anaphylaxis Penicillins Allergy (Verified 07/28/18 20:11) Anaphylaxis venom-honey bee [bee venom (honey bee)] Adverse Reaction (Verified 07/28/18 20:11) Other Home Medications: Ambulatory Orders Medication Instructions Recorded Acetaminophen [Tylenol Tablet] 650 mg PO Q6H PRN PRN tablet 07/05/18 Albuterol Aerosols [Ventolin 2.5 mg INHALATION Q2H PRN PRN 07/05/18 Aerosols] vial.neb. Amiodarone HCl [Cordarone] 200 mg PO DAILY tablet 07/05/18 Pantoprazole Sodium [Protonix] 40 mg PO BID tablet 07/05/18 Senna/Docusate Sodium [Senokot-S] 2 tablet PO DAILY PRN PRN tablet 07/05/18 Folic Acid 1 mg PO DAILY@0800 07/29/18 Hypromellose [Pure & Gentle Eye 1 drop EACH EYE Q4H PRN PRN 07/29/18 Drops] Ensure Clear 120 ml PO 4X/DAY liquid 07/31/18 Ferrous Sulfate 325 mg PO BID #0 07/31/18 Ipratropium [Atrovent Aerosols] 0.5 mg INHALATION Q4H PRN PRN 07/31/18 solution Menthol/Lanolin/Calamine/Znox 1 applic TOPICAL TID tube 07/31/18 [Calmoseptine Ointment] Quetiapine Fumarate [Seroquel] 50 mg PO BID tablet 07/31/18 Surgical History: - - Left ankle surgery, left arm carpal tunnel surgery, tonsillectomy. 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 Paternal History Items: - - Patient denies any marked maternal or paternal family history including heart disease, diabetes or cancer. Review of Systems Constitutional: Denies: Anorexia, Fever Eyes: Denies: Blurred vision HEENT: Denies: Difficulty Swallowing Cardiovascular: Denies: Chest Pain Respiratory: Denies: Shortness of breath at rest Gastrointestinal: Reports: Melena. Denies: Abdominal Pain, Nausea, Vomiting Genitourinary: Denies: Dysuria Skin: Reports: Wounds Neurological: Reports: Numbness - in b/l legs Hematologic/ Lymphatic: Reports: Anemia - Physical Exam General: Alert, Oriented x3, No apparent distress HEENT: Atraumatic Cardiovascular: Regular rate Abdomen: Soft, Non Tender, Non-Distended, Obese Extremities: No clubbing, No cyanosis Neurological: Cranial nerves II-XII grossly intact Psych/Mental Status: Normal Affect Vital Signs Temp Pulse Resp BP Pulse Ox 97.4 F L 89 18 135/68 H 98 07/29/18 08:40 07/29/18 08:40 07/29/18 08:40 07/29/18 08:40 07/29/18 08:40 Oxygen Flow Rate (L/min) 2 Oxygen Delivery Method Nasal Cannula Weight: 225 lb 12.054 oz Body Mass Index (BMI) 38.5 Intake and Output for Last 24 Hours 07/27/18 07/28/18 07/29/18 23:59 23:59 23:59 Intake Total 757 / 757 Balance 757 / 757 Laboratory Tests Past 24 Hrs 07/28/18 07/28/18 07/28/18 20:45 20:45 20:45 WBC 9.7 RBC 2.71 L Hgb 7.9 L Hct 25.8 L MCV 95.2 MCH 29.2 MCHC 30.6 L RDW 18.8 H RDW Differential 65.5 H Plt Count 185 MPV 8.7 Neut % (Auto) Not Reportable Absolute Neuts (auto) 6.8 Absolute Lymphs (auto) 1.26 Total Counted 100 Neutrophils % (Manual) 67 Band Neutrophils % 3 Lymphocytes % (Manual) 13 L Monocytes % (Manual) 6 Basophils % (Manual) Metamyelocytes % 3 H Myelocytes % 7 H Promyelocytes % 1 H Diff Path Review May foll Platelet Estimate ADEQUATE RBC Morphology Anisocytosis RARE Macrocytosis RARE Sodium 146 H Potassium 3.4 L Chloride 113 H Carbon Dioxide 28.0 Anion Gap 5 BUN 53 H Creatinine 1.30 H Estim Creat Clear Calc 41.73 Est GFR (MDRD) Af Amer 54 L Est GFR (MDRD) Non-Af 45 L BUN/Creatinine Ratio 40.8 H Glucose 91 Calcium 7.9 L Iron 47 L TIBC 145 L Iron Saturation 32.4 Blood Type Antibody Screen Crossmatch 07/29/18 07/29/18 07/29/18 05:38 05:38 09:15 WBC 8.4 RBC 2.32 L Hgb 7.0 L 6.6 L Hct 22.3 L 21.7 L MCV 96.1 MCH 30.2 MCHC 31.4 L RDW 18.9 H RDW Differential 66.3 H Plt Count 171 MPV 9.0 Neut % (Auto) Not Reportable Absolute Neuts (auto) 6.0 Absolute Lymphs (auto) 1.51 Total Counted 100 Neutrophils % (Manual) 66 Band Neutrophils % 5 Lymphocytes % (Manual) 18 L Monocytes % (Manual) 3 Basophils % (Manual) 1 Metamyelocytes % 4 H Myelocytes % 3 H Promyelocytes % Diff Path Review May foll Platelet Estimate ADEQUATE RBC Morphology NORM C+C Anisocytosis 2+ Macrocytosis Sodium 147 H Potassium 3.5 Chloride 114 H Carbon Dioxide 27.0 Anion Gap 6 BUN 50 H Creatinine 1.25 H Estim Creat Clear Calc 43.40 Est GFR (MDRD) Af Amer 57 L Est GFR (MDRD) Non-Af 47 L BUN/Creatinine Ratio 40.0 H Glucose 105 Calcium 7.8 L Iron TIBC Iron Saturation Blood Type Antibody Screen Crossmatch 07/29/18 09:15 WBC RBC Hgb Hct MCV MCH MCHC RDW RDW Differential Plt Count MPV Neut % (Auto) Absolute Neuts (auto) Absolute Lymphs (auto) Total Counted Neutrophils % (Manual) Band Neutrophils % Lymphocytes % (Manual) Monocytes % (Manual) Basophils % (Manual) Metamyelocytes % Myelocytes % Promyelocytes % Diff Path Review Platelet Estimate RBC Morphology Anisocytosis Macrocytosis Sodium Potassium Chloride Carbon Dioxide Anion Gap BUN Creatinine Estim Creat Clear Calc Est GFR (MDRD) Af Amer Est GFR (MDRD) Non-Af BUN/Creatinine Ratio Glucose Calcium Iron TIBC Iron Saturation Blood Type Pending Antibody Screen Pending Crossmatch See Detail Assessment/Plan All Active Problems Severe sepsis (Acute) Acute respiratory failure with hypoxia (Acute) Pneumonia (Acute) Atrial fibrillation with RVR (Acute) LYNNETTE (acute kidney injury) (Acute) Problem with dialysis access (Acute) Generalized weakness (Acute) We will plan to obtain rest of previous records from [facility]. Discussed with the patient about a possible endoscopy including EGD and possibly colonoscopy. Patient states she cannot tolerate the prep and does refuse a colonoscopy she initially refused the EGD but it seemed that she may be amenable as I discussed she would be asleep for the procedure. Patient's hemoglobin at discharge on 07/24/2018 from [facility] was 7.3. On admit here 7.9 recheck it was 7. We will check with her previous half-way facility to see if she was given any Eliquis recently as previous records did state they held the Eliquis to schedule an EGD. Addendum: Did talk with [facility] and intermediate and they did confirm she has been off the Eliquis since her hospitalization from 07/17- 07/24. Again did discuss the EGD with the patient and she was agreeable to also did discuss the procedure with the patient's POA her daughter Maryan was also agreeable. Did discuss the procedure including risk but not limited to perforation, bleeding, unable to control bleeding into transfer to tertiary care facility, and anesthesia. Patient and her daughter has no further questions at this time. We will plan for 1130 tomorrow. N.p.o. after 6 AM. Ginny Guerrero M.D. Pager: [phone] [facility] [address] [place] [address], [facility], [address] [place] [address] Office: [phone] Code Visit Inpatient E&M: 08547 Init Hosp L2
--- NOTE | 2018-07-29 10:31 | NURSING ---
THIS RN CALLED [facility] REGARDING MEDICATION LIST FROM PATIENT ADMISSION. LEFT AMA 07/28/18. FAX NUMBER PROVIDED FOR MED LIST TO BE UPDATED FOR ADMISSION HERE.
--- NOTE | 2018-07-29 10:35 | CASEMGMT ---
Social Work Note MATTHEW spoke with Toya at [facility]. Toya confirms that they are in network with [facility] and will review referral. MATTHEW informed Toya that once PT/OT evaluations are available this worker will fax referral. Toya states understanding. Plan: [facility] pending acceptance and pre-cert Ailyn Parrish RAILROAD BRAKE REPAIRER, OUTPATIENT FACILITY PHYSICAL THERAPIST
--- NOTE | 2018-07-29 10:41 | NURSING ---
MEDICAL RECORD RELEASE SENT TO [facility] PER MD ORDER.
--- NOTE | 2018-07-29 11:16 | PCM.CONS.GEN ---
Reason for Consult Date of Consultation: 07/29/18 Reason for Consultation: Weakness History of Present Illness: The patient is a 58 year old female presents with history as below. left longterm in [facility], unable to tell me how long she has been weak. i just want to know why i cant walk. denies gi or gu complaints, denies speech, vision or swallowing complaints, Per admit note: The patient is a 58 year old F who was seen in the emergency room at [facility] with complaints of generalized weakness. She had been in a snf facility in [place] until today when she checked herself out of the facility. She states they were not treating her right at the facility. Patient is not been able to ambulate for approximately a month since she was hospitalized for respiratory failure and the pneumonia according to the daughter who is in the room at the time of my examination. Patient was able to get into the daughter's car at the longterm but when she reached her home, patient was too weak to get out of the car and squad was called. Evaluation in the emergency room included labs which showed a normal white blood cell count, hemoglobin was low at 7.9, chemistry profile was remarkable for a potassium of 3.4, sodium of 146, chloride of 113, creatinine 1.3, BUN of 53. Patient had a chest x-ray performed which showed right lateral rib fractures which were new as compared to a chest x-ray taken on 06/29/18. There is noted to be a left lower lobe infiltrate which was improving over the past chest x-ray, there is also noted to be a 6 mm left upper lobe nodular density. This nodular density could also represent an artifact, CT scan of the chest was recommended for follow-up. Patient was placed and observation status for generalized weakness and anemia. Patient had been on dialysis for a time at the snf facility, she states she is no longer receiving dialysis-her creatinine of 1.3 was vastly improved over her last creatinine done at this facility which was 4.6. Patient will need further skilled care in another facility, she refuses to go back to the one in [place] Past Medical History Past Medical History (Chronic Problems): Chronic Problems Morbid obesity (Chronic) Tobacco use (Chronic) Allergies aspirin Allergy (Verified 07/28/18 20:11) Swelling erythromycin base [Erythromycin Base] Allergy (Verified 07/28/18 20:11) Anaphylaxis Penicillins Allergy (Verified 07/28/18 20:11) Anaphylaxis venom-honey bee [bee venom (honey bee)] Adverse Reaction (Verified 07/28/18 20:11) Other Home Medications: Ambulatory Orders Medication Instructions Recorded Acetaminophen [Tylenol Tablet] 650 mg PO Q6H PRN PRN tablet 07/05/18 Albuterol Aerosols [Ventolin 2.5 mg INHALATION Q2H PRN PRN 07/05/18 Aerosols] vial.neb. Amiodarone HCl [Cordarone] 200 mg PO DAILY tablet 07/05/18 Pantoprazole Sodium [Protonix] 40 mg PO BID tablet 07/05/18 Quetiapine Fumarate [Seroquel] 25 mg PO BID tablet 07/05/18 Senna/Docusate Sodium [Senokot-S] 2 tablet PO DAILY PRN PRN tablet 07/05/18 Ferrous Sulfate 325 mg PO DAILY 07/29/18 Folic Acid 1 mg PO DAILY@0800 07/29/18 Hypromellose [Pure & Gentle Eye 15 ml OP Q4H PRN PRN 07/29/18 Drops] Nystatin/Triamcin 15 gm TP 4X/DAY 07/29/18 [Nystatin-Triamcinolone Ointm] Surgical History: - - Left ankle surgery, left arm carpal tunnel surgery, tonsillectomy. 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 Paternal History Items: - - Patient denies any marked maternal or paternal family history including heart disease, diabetes or cancer. Patient Problems: Active and Suspected Problems Generalized weakness (Acute) - Physical Exam General: Alert, Oriented x3, Cooperative, No apparent distress Neurological: Cranial nerves II-XII grossly intact, Deep Tendon Reflexes 2+/4 and Symmetrical, Neuro grossly intact, Motor Exam 5/5 strength throughout, - - wiggles toes, minimal muscle activation when distracted. no spasticity. no sensory level Vital Signs Temp Pulse Resp BP Pulse Ox 36.3 C L 89 18 135/68 H 98 07/29/18 08:40 07/29/18 08:40 07/29/18 08:40 07/29/18 08:40 07/29/18 08:40 Oxygen Flow Rate (L/min) 2 Oxygen Delivery Method Nasal Cannula Weight: 102.4 kg Body Mass Index (BMI) 38.5 Intake and Output for Last 24 Hours 07/27/18 07/28/18 07/29/18 23:59 23:59 23:59 Intake Total 757 / 757 Balance 757 / 757 Laboratory Tests Past 24 Hrs 07/28/18 07/28/18 07/28/18 20:45 20:45 20:45 WBC 9.7 RBC 2.71 L Hgb 7.9 L Hct 25.8 L MCV 95.2 MCH 29.2 MCHC 30.6 L RDW 18.8 H RDW Differential 65.5 H Plt Count 185 MPV 8.7 Neut % (Auto) Not Reportable Absolute Neuts (auto) 6.8 Absolute Lymphs (auto) 1.26 Total Counted 100 Neutrophils % (Manual) 67 Band Neutrophils % 3 Lymphocytes % (Manual) 13 L Monocytes % (Manual) 6 Basophils % (Manual) Metamyelocytes % 3 H Myelocytes % 7 H Promyelocytes % 1 H Diff Path Review May foll Platelet Estimate ADEQUATE RBC Morphology Anisocytosis RARE Macrocytosis RARE Sodium 146 H Potassium 3.4 L Chloride 113 H Carbon Dioxide 28.0 Anion Gap 5 BUN 53 H Creatinine 1.30 H Estim Creat Clear Calc 41.73 Est GFR (MDRD) Af Amer 54 L Est GFR (MDRD) Non-Af 45 L BUN/Creatinine Ratio 40.8 H Glucose 91 Calcium 7.9 L Iron 47 L TIBC 145 L Iron Saturation 32.4 Blood Type Antibody Screen Crossmatch 07/29/18 07/29/18 07/29/18 05:38 05:38 09:15 WBC 8.4 RBC 2.32 L Hgb 7.0 L 6.6 L Hct 22.3 L 21.7 L MCV 96.1 MCH 30.2 MCHC 31.4 L RDW 18.9 H RDW Differential 66.3 H Plt Count 171 MPV 9.0 Neut % (Auto) Not Reportable Absolute Neuts (auto) 6.0 Absolute Lymphs (auto) 1.51 Total Counted 100 Neutrophils % (Manual) 66 Band Neutrophils % 5 Lymphocytes % (Manual) 18 L Monocytes % (Manual) 3 Basophils % (Manual) 1 Metamyelocytes % 4 H Myelocytes % 3 H Promyelocytes % Diff Path Review May foll Platelet Estimate ADEQUATE RBC Morphology NORM C+C Anisocytosis 2+ Macrocytosis Sodium 147 H Potassium 3.5 Chloride 114 H Carbon Dioxide 27.0 Anion Gap 6 BUN 50 H Creatinine 1.25 H Estim Creat Clear Calc 43.40 Est GFR (MDRD) Af Amer 57 L Est GFR (MDRD) Non-Af 47 L BUN/Creatinine Ratio 40.0 H Glucose 105 Calcium 7.8 L Iron TIBC Iron Saturation Blood Type Antibody Screen Crossmatch 07/29/18 09:15 WBC RBC Hgb Hct MCV MCH MCHC RDW RDW Differential Plt Count MPV Neut % (Auto) Absolute Neuts (auto) Absolute Lymphs (auto) Total Counted Neutrophils % (Manual) Band Neutrophils % Lymphocytes % (Manual) Monocytes % (Manual) Basophils % (Manual) Metamyelocytes % Myelocytes % Promyelocytes % Diff Path Review Platelet Estimate RBC Morphology Anisocytosis Macrocytosis Sodium Potassium Chloride Carbon Dioxide Anion Gap BUN Creatinine Estim Creat Clear Calc Est GFR (MDRD) Af Amer Est GFR (MDRD) Non-Af BUN/Creatinine Ratio Glucose Calcium Iron TIBC Iron Saturation Blood Type O POSITIVE Antibody Screen NEGATIVE Crossmatch See Detail MRI lumbar spine reviewed, unremarkable Assessment/Plan All Active Problems Severe sepsis (Acute) Acute respiratory failure with hypoxia (Acute) Pneumonia (Acute) Atrial fibrillation with RVR (Acute) LYNNETTE (acute kidney injury) (Acute) Problem with dialysis access (Acute) Generalized weakness (Acute) weakness, due to debility, as well as anemia, nonphysiologic exam. rec pt/ot and eval of anemia no evidence of neurologic injury.
--- NOTE | 2018-07-29 11:19 | CON.PCM_ITS ---
Reason for Consult Date of Consultation: 07/29/18 Reason for Consultation: Weakness History of Present Illness: The patient is a 58 year old female presents with history as below. left senior care in [facility], unable to tell me how long she has been weak. i just want to know why i cant walk. denies gi or gu complaints, denies speech, vision or swallowing complaints, Per admit note: The patient is a 58 year old F who was seen in the emergency room at [facility] with complaints of generalized weakness. She had been in a penitentiary facility in [place] until today when she checked herself out of the facility. She states they were not treating her right at the facility. Patient is not been able to ambulate for approximately a month since she was hospitalized for respiratory failure and the pneumonia according to the daughter who is in the room at the time of my examination. Patient was able to get into the daughter's car at the senior care but when she reached her home, patient was too weak to get out of the car and squad was called. Evaluation in the emergency room included labs which showed a normal white blood cell count, hemoglobin was low at 7.9, chemistry profile was remarkable for a potassium of 3.4, sodium of 146, chloride of 113, creatinine 1.3, BUN of 53. Patient had a chest x-ray performed which showed right lateral rib fractures which were new as compared to a chest x-ray taken on 06/29/18. There is noted to be a left lower lobe infiltrate which was improving over the past chest x-ray, there is also noted to be a 6 mm left upper lobe nodular density. This nodular density could also represent an artifact, CT scan of the chest was recommended for follow-up. Patient was placed and observation status for generalized weakness and anemia. Patient had been on dialysis for a time at the penitentiary facility, she st ates she is no longer receiving dialysis-her creatinine of 1.3 was vastly improved over her last creatinine done at this facility which was 4.6. Patient will need further skilled care in another facility, she refuses to go back to the one in [place] Past Medical History Past Medical History (Chronic Problems): Chronic Problems Morbid obesity (Chronic) Tobacco use (Chronic) Allergies aspirin Allergy (Verified 07/28/18 20:11) Swelling erythromycin base [Erythromycin Base] Allergy (Verified 07/28/18 20:11) Anaphylaxis Penicillins Allergy (Verified 07/28/18 20:11) Anaphylaxis venom-honey bee [bee venom (honey bee)] Adverse Reaction (Verified 07/28/18 20:11) Other Home Medications: Ambulatory Orders Medication Instructions Recorded Acetaminophen [Tylenol Tablet] 650 mg PO Q6H PRN PRN tablet 07/05/18 Albuterol Aerosols [Ventolin 2.5 mg INHALATION Q2H PRN PRN 07/05/18 Aerosols] vial.neb. Amiodarone HCl [Cordarone] 200 mg PO DAILY tablet 07/05/18 Pantoprazole Sodium [Protonix] 40 mg PO BID tablet 07/05/18 Quetiapine Fumarate [Seroquel] 25 mg PO BID tablet 07/05/18 Senna/Docusate Sodium [Senokot-S] 2 tablet PO DAILY PRN PRN tablet 07/05/18 Ferrous Sulfate 325 mg PO DAILY 07/29/18 Folic Acid 1 mg PO DAILY@0800 07/29/18 Hypromellose [Pure & Gentle Eye 15 ml OP Q4H PRN PRN 07/29/18 Drops] Nystatin/Triamcin 15 gm TP 4X/DAY 07/29/18 [Nystatin-Triamcinolone Ointm] Surgical History: - - Left ankle surgery, left arm carpal tunnel surgery, tonsillectomy. 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 Paternal History Items: - - Patient denies any marked maternal or paternal family history including heart disease, diabetes or cancer. Patient Problems: Active and Suspected Problems Generalized weakness (Acute) - Physical Exam General: Alert, Oriented x3, Cooperative, No apparent distress Neurological: Cranial nerves II-XII grossly intact, Deep Tendon Reflexes 2+/4 and Symmetrical, Neuro grossly intact, Motor Exam 5/5 strength throughout, - - wiggles toes, minimal muscle activation when distracted. no spasticity. no sensory level Vital Signs Temp Pulse Resp BP Pulse Ox 36.3 C L 89 18 135/68 H 98 07/29/18 08:40 07/29/18 08:40 07/29/18 08:40 07/29/18 08:40 07/29/18 08:40 Oxygen Flow Rate (L/min) 2 Oxygen Delivery Method Nasal Cannula Weight: 102.4 kg Body Mass Index (BMI) 38.5 Intake and Output for Last 24 Hours 07/27/18 07/28/18 07/29/18 23:59 23:59 23:59 Intake Total 757 / 757 Balance 757 / 757 Laboratory Tests Past 24 Hrs 07/28/18 07/28/18 07/28/18 20:45 20:45 20:45 WBC 9.7 RBC 2.71 L Hgb 7.9 L Hct 25.8 L MCV 95.2 MCH 29.2 MCHC 30.6 L RDW 18.8 H RDW Differential 65.5 H Plt Count 185 MPV 8.7 Neut % (Auto) Not Reportable Absolute Neuts (auto) 6.8 Absolute Lymphs (auto) 1.26 Total Counted 100 Neutrophils % (Manual) 67 Band Neutrophils % 3 Lymphocytes % (Manual) 13 L Monocytes % (Manual) 6 Basophils % (Manual) Metamyelocytes % 3 H Myelocytes % 7 H Promyelocytes % 1 H Diff Path Review May foll Platelet Estimate ADEQUATE RBC Morphology Anisocytosis RARE Macrocytosis RARE Sodium 146 H Potassium 3.4 L Chloride 113 H Carbon Dioxide 28.0 Anion Gap 5 BUN 53 H Creatinine 1.30 H Estim Creat Clear Calc 41.73 Est GFR (MDRD) Af Amer 54 L Est GFR (MDRD) Non-Af 45 L BUN/Creatinine Ratio 40.8 H Glucose 91 Calcium 7.9 L Iron 47 L TIBC 145 L Iron Saturation 32.4 Blood Type Antibody Screen Crossmatch 07/29/18 07/29/18 07/29/18 05:38 05:38 09:15 WBC 8.4 RBC 2.32 L Hgb 7.0 L 6.6 L Hct 22.3 L 21.7 L MCV 96.1 MCH 30.2 MCHC 31.4 L RDW 18.9 H RDW Differential 66.3 H Plt Count 171 MPV 9.0 Neut % (Auto) Not Reportable Absolute Neuts (auto) 6.0 Absolute Lymphs (auto) 1.51 Total Counted 100 Neutrophils % (Manual) 66 Band Neutrophils % 5 Lymphocytes % (Manual) 18 L Monocytes % (Manual) 3 Basophils % (Manual) 1 Metamyelocytes % 4 H Myelocytes % 3 H Promyelocytes % Diff Path Review May foll Platelet Estimate ADEQUATE RBC Morphology NORM C+C Anisocytosis 2+ Macrocytosis Sodium 147 H Potassium 3.5 Chloride 114 H Carbon Dioxide 27.0 Anion Gap 6 BUN 50 H Creatinine 1.25 H Estim Creat Clear Calc 43.40 Est GFR (MDRD) Af Amer 57 L Est GFR (MDRD) Non-Af 47 L BUN/Creatinine Ratio 40.0 H Glucose 105 Calcium 7.8 L Iron TIBC Iron Saturation Blood Type Antibody Screen Crossmatch 07/29/18 09:15 WBC RBC Hgb Hct MCV MCH MCHC RDW RDW Differential Plt Count MPV Neut % (Auto) Absolute Neuts (auto) Absolute Lymphs (auto) Total Counted Neutrophils % (Manual) Band Neutrophils % Lymphocytes % (Manual) Monocytes % (Manual) Basophils % (Manual) Metamyelocytes % Myelocytes % Promyelocytes % Diff Path Review Platelet Estimate RBC Morphology Anisocytosis Macrocytosis Sodium Potassium Chloride Carbon Dioxide Anion Gap BUN Creatinine Estim Creat Clear Calc Est GFR (MDRD) Af Amer Est GFR (MDRD) Non-Af BUN/Creatinine Ratio Glucose Calcium Iron TIBC Iron Saturation Blood Type O POSITIVE Antibody Screen NEGATIVE Crossmatch See Detail MRI lumbar spine reviewed, unremarkable Assessment/Plan All Active Problems Severe sepsis (Acute) Acute respiratory failure with hypoxia (Acute) Pneumonia (Acute) Atrial fibrillation with RVR (Acute) LYNNETTE (acute kidney injury) (Acute) Problem with dialysis access (Acute) Generalized weakness (Acute) weakness, due to debility, as well as anemia, nonphysiologic exam. rec pt/ot and eval of anemia no evidence of neurologic injury.
--- NOTE | 2018-07-29 13:41 | CASEMGMT ---
Addendum entered by Ailyn Parrish 07/29/18 14:56: MATTHWE spoke with Toya at [facility] who confirms she is able to accept pt and will submit for pre-cert. Original Note: Social Work Note MATTHEW faxed referral to Toya at [facility]. Plan: [facility] pending acceptance and pre-cert Ailyn Parrish GLASSWARE FINISHER, PROFESSIONAL NURSING TUTOR
[2018-07-29] MEDS: Menthol/Lanolin/Calamine/Znox 113 GM Tube 1 APPLIC TOPICAL ×2 (14:11→23:03)
--- NOTE | 2018-07-29 15:30 | CASEMGMT ---
Social Work Note SW updated pt's daughter Maryan on acceptance to [facility] pending pre-cert. Maryan states understanding. Plan: [facility] pending pre-cert Ailyn Parrish PRESSURE STEAMER TENDER, HIGH RAW SUGAR BOILER
[2018-07-29 15:48] LABS: Hematocrit 22.3 % (37-47); Hemoglobin 6.6 g/dl (12.0-15.0)
[2018-07-29] MEDS: Ensure Clear 120 ML Liquid PO ×2 (17:30→23:02)
[2018-07-29] MEDS: Sodium Chloride 0.65% 1 SPRAY SPRAY.BTL NASAL (23:06)
[2018-07-30] VITALS (10 sets, daily range): BP systolic 133–151; BP diastolic 62–83; PULSE 96–109; RESP 14–22; TEMP 36.3–37.1; O2SAT 91–97; BMI 38.5
[2018-07-30] MEDS: 0.9% NaCl Peripheral Flush Adult/Peds IV ×3 (00:58→15:43)
--- NOTE | 2018-07-30 01:24 | EKG12_ITS ---
Test Reason : PRE-OP Blood Pressure : / mmHG Vent. Rate : 109 BPM Atrial Rate : 109 BPM P-R Int : 172 ms QRS Dur : 092 ms QT Int : 304 ms P-R-T Axes : 053 036 145 degrees QTc Int : 409 ms Sinus tachycardia Low voltage QRS ST & T wave abnormality, consider anterior ischemia Abnormal ECG When compared with ECG of 03-JUL-2018 19:36, Vent. rate has increased BY 47 BPM QRS voltage has decreased Nonspecific T wave abnormality now evident in Inferior leads T wave inversion no longer evident in Lateral leads Confirmed by SAMANTHA CHRISTIAN, KORI ([id number]), publications editor TAMMIE WHEELER ([id number]) on 08/12/2018 5:26:22 PM Referred By: DR JEFFRIES Confirmed By:KORI SINGH MD
[2018-07-30] MEDS: Menthol/Lanolin/Calamine/Znox 113 GM Tube 1 APPLIC TOPICAL ×2 (06:21→13:08)
[2018-07-30 06:33] LABS: International Normalized Ratio 1.1; Partial Thromboplast Time 29.7 Seconds (24.1-36.2); Prothrombin Time (Protime)PT. 13.7 SECONDS (11.7-14.9)
[2018-07-30 06:38] LABS: Differential Indicated MANUAL DIFF; Hematocrit 31.8 % (37-47); Hemoglobin 9.8 g/dl (12.0-15.0); Mean Corp Hgb Conc 30.8 g/gl (32-36); Mean Corpuscular Hgb 29.3 pg (27.0-32.0); Mean Corpuscular Volume 95.2 fL (81-99); Mean Platelet Vol. 9.1 fl (6.2-12.0); POSITIVE COUNT YES; POSITIVE DIFFERENTIAL NO; POSITIVE MORPHOLOGY YES; Platelet Count 189 K/mm3 (150-450); RBC Distribution Width CV 18.5 % (11.6-14.6); RBC Distribution Width SD 64.2 fl (35.1-43.9); Red Blood Count 3.34 M/mm3 (4.2-5.4)
[2018-07-30 06:40] LABS: Albumin, Serum 1.8 g/dL (3.2-5.0); Anion Gap 7 (5-15); BUN 41 mg/dL (7-18); Calcium,Total 7.9 mg/dL (8.5-10.1); Chloride 112 mmol/L (98-107); Creatinine, Serum 1.14 mg/dL (0.55-1.02); EST Glomerular Filtration Rate 52 mL/min (>60); Est Glom Filt Rate - Afr Amer 63 mL/min (>60); Estimated Creatinine Clearance 47.58 ml/min; Glucose 91 mg/dL (74-106); Potassium 3.7 mmol/L (3.5-5.1); Sodium Level 146 mmol/L (136-145)
[2018-07-30 07:07] LABS: Eosinophil 1 % (0-5); Lymphocyte 22 % (19-41); Metamyelocyte 8 % (0-1); Monocyte 4 % (0-10); Myelocyte 2 (0-0); Neutrophil-Band 17 % (0-5); Neutrophil-Segmented 46 % (47-70); Total Cells Counted 100 (MANUAL DIFF)
[2018-07-30 07:09] LABS: Absolute Neutrophil Count 3.3 X10^3/uL (2.0-7.7)
[2018-07-30 07:11] LABS: Anisocytosis 1+; Hypochromasia 1+; Platelet Estimate ADEQUATE (ADEQ)
--- NOTE | 2018-07-30 07:53 | PN_ITS ---
Patient Problems: Active and Suspected Problems Generalized weakness (Acute) Subjective: Patient was seen and examined. No more bleeding seen in the hospital. Transfused 2 units of blood yesterday. Denies any chest pain or shortness of breath. Had an EGD done today that was unremarkable. Possible colonoscopy tomorrow. Objective: Physical exam: General: Alert, Oriented x3, Cooperative, No apparent distress, - - On 2 L of oxygen, obese HEENT: Atraumatic, PERRLA, EOMI, Normocephalic Oral: Moist Mucosa Neck: Supple Lungs: Diminished Cardiovascular: Regular rate, Regular Rhythm, Normal S1, Normal S2, No murmurs Abdomen: Bowel Sounds Present, Soft, Non Tender, Non-Distended, No Hepato- splenomegaly Extremities: Edema - bilateral trace pedal edema Skin: No rashes, No breakdown Musculoskeletal: No Tenderness to Palpation of Joints or Extremities Lymphatic: No Cervical, Supraclavicular, or Inguinal Adenopathy Neurological: Cranial nerves II-XII grossly intact Psych/Mental Status: Normal Affect, Appropriate Vitals/I&O's: Vital Signs Temp Pulse Resp BP Pulse Ox 98.1 F 109 H 18 150/79 H 97 07/30/18 06:17 07/30/18 06:17 07/30/18 06:17 07/30/18 06:17 07/30/18 06:17 Oxygen Flow Rate (L/min) 2 Oxygen Delivery Method Nasal Cannula Weight: 102.4 kg Body Mass Index (BMI) 38.5 Intake and Output for Last 24 Hours 07/28/18 07/29/18 07/30/18 23:59 23:59 23:59 Intake Total 1857 / 1857 1700 / 1700 Balance 185 / 185 1700 / 1700 Microbiology Past 72 Hours 07/29/18 11:00 Stool Stool Occult Blood (JIMI) - Final Occult Blood Positive Laboratory Results 07/29/18 09:15: Hgb 6.6 L, Hct 21.7 L 07/29/18 09:15: Blood Type O POSITIVE, Antibody Screen NEGATIVE, Crossmatch See Detail 07/29/18 15:15: Hgb 6.6 L, Hct 22.3 L 07/30/18 05:25: WBC 10.0, RBC 3.34 L, Hgb 9.8 L, Hct 31.8 L, MCV 95.2, MCH 29.3, MCHC 30.8 L, RDW 18.5 H, RDW Differential 64.2 H, Plt Count 189, MPV 9.1, Neut % (Auto) Not Reportable, Absolute Neuts (auto) 3.3, Absolute Lymphs (auto) 2.20, Total Counted 100, Neutrophils % (Manual) 46 L, Band Neutrophils % 17 H, Lymphocytes % (Manual) 22, Monocytes % (Manual) 4, Eosinophils % (Manual) 1, Metamyelocytes % 8 H, Myelocytes % 2 H, Diff Path Review August, Platelet Estimate ADEQUATE, Hypochromasia 1+, Anisocytosis 1+ 07/30/18 05:25: Sodium 146 H, Potassium 3.7, Chloride 112 H, Carbon Dioxide 27.0, Anion Gap 7, BUN 41 H, Creatinine 1.14 H, Estim Creat Clear Calc 47.58, Est GFR (MDRD) Af Amer 63, Est GFR (MDRD) Non-Af 52 L, BUN/Creatinine Ratio 36.0 H, Glucose 91, Calcium 7.9 L, Phosphorus Cancelled, Albumin 1.8 L 07/30/18 05:25: PT 13.7, INR 1.1, APTT 29.7 Current Medications Acetaminophen (Tylenol) 650 mg PO Q6H PRN PRN PRN Reason: PAIN Acetaminophen (Tylenol) 650 mg PO Q6H PRN PRN PRN Reason: Mild Pain (1-3)/Temp > 100.7 F Albuterol Sulfate (Ventolin Aerosols) 2.5 mg INHALATION Q2H PRN PRN PRN Reason: SHORTNESS OF BREATH Amiodarone HCl (Cordarone) 200 mg PO DAILY [facility] Last Admin: 07/29/18 08:33 Dose: 200 mg Calamine/Phenol (Calmoseptine Ointment) 1 applic TOPICAL TID [facility]; Protocol Last Admin: 07/30/18 06:21 Dose: 1 applicatio Ipratropium [place] (Atrovent) 0.5 mg INHALATION Q4H PRN PRN PRN Reason: SOB &/OR WHEEZING Nutritional Formula (Lactose Free) (Ensure Clear) 120 ml PO 4X/DAY [facility] Last Admin: 07/29/18 23:02 Dose: 120 ml Ondansetron HCl (Zofran) 4 mg IV Q8H PRN PRN PRN Reason: NAUSEA Pantoprazole Sodium (Protonix) 40 mg PO BID [facility] Last Admin: 07/29/18 23:04 Dose: 40 mg Quetiapine Fumarate (Seroquel) 25 mg PO BID [facility] Last Admin: 07/29/18 23:04 Dose: 25 mg Senna/Docusate Sodium (Senokot-S, Yanet-Colace) 2 tablet PO DAILY PRN PRN PRN Reason: CONSTIPATION Sodium Chloride () 5 - 15 ml IV UD PRN PRN Reason: SALINE FLUSH Last Admin: 07/30/18 00:59 Dose: 10 ml Sodium Chloride ([place] Nasal [place]) 1 spray NASAL TID PRN PRN PRN Reason: NASAL DRYNESS Last Admin: 07/29/18 23:06 Dose: 1 spray Medical Necessity - Tobacco Use Smoking Status: Current every day smoker Tobacco Use: Cigarettes Assessment/Plan All Active Problems Severe sepsis (Acute) Acute respiratory failure with hypoxia (Acute) Pneumonia (Acute) Atrial fibrillation with RVR (Acute) LYNNETTE (acute kidney injury) (Acute) Problem with dialysis access (Acute) Generalized weakness (Acute) 58-year-old with multiple comorbidities, recently admitted with AK I, septic shock, discharged to [facility] facility. Patient reportedly signed out AMA, but was readmitted to the hospital with progressive weakness. 1. Acute iron deficiency anemia secondary to acute GI bleed, status post 2 units pRBC status post IV Venofer, recent history of GI bleed, recent admission to [facility], refused GI workup General surgery consulted, status post EGD that was unremarkable, due for c olonoscopy tomorrow. off Eliquis, continue on PPI 2. Debility secondary to concurrent comorbidities, worsening bilateral lower extremity weakness, history of chronic back pain, MRI of the lumbar spine showed L3-L4 moderate central canal stenosis. PT and OT consulted 3. Paroxysmal atrial fibrillation, patient was on Eliquis, on amiodarone 4. Recent LYNNETTE secondary to ATN, and was on dialysis, creatinine improved to 1.25 5. Hypokalemia, replaced, recheck in am 6. Hyponatremia likely secondary to dehydration, will trend labs 7. Recent cardiac arrest status post septic shock 8. DVT PPx -SCDs 9. Disposition: Possible DC in 1-2 days Code Visit Inpatient E&M: 57724 Subs Hosp L2
--- NOTE | 2018-07-30 08:53 | CASEMGMT ---
Addendum entered by Ailyn Parrish 07/30/18 14:46: MATTHEW faxed updated clinicals to [facility]. Original Note: Social Work Note SW updated that pt will be at [facility] for at least two more days. MATTHEW placed a call to Toya at [facility] and updated her of this. Toya states she will update pt's insurance. MATTHEW to fax updated clinicals when available. Plan: [facility] pending pre-cert Ailyn Parrish CUSTOMS CONSULTANT, PIN WORKER
[2018-07-30 11:01] LABS: Hematocrit 30.2 % (37-47); Hemoglobin 9.5 g/dl (12.0-15.0)
--- NOTE | 2018-07-30 11:57 | OP.ENDO_ITS ---
07/30/2018 Jose Kaplan Re : Upper GI endoscopy procedure for Lisbeth Newby Dear Rosaura This procedure was performed on Monday, July 30, 2018. My impressions and recommendations are as follows: Impressions : - Normal esophagus. - Normal stomach. - Normal examined duodenum. - No specimens collected. Recommendations : - [facility] patient to [facility]. - Full liquid diet, ok for soft if pt continues to refuse colonoscopy-Hb currently 9.5 from 6.6 after 2 units PRBC. - Continue present medications. - Recommend colonoscopy due to melena/GI bleed; however, patient has been adamant that she will not take the prep and does not want a colonoscopy. My findings are described in the full procedure note, which is enclosed. If I can be of further assistance, please feel free to contact me at Doctor phone number(s): , Work: . Sincerely, MD Ginny Quintero MD 07/30/2018 11:56:29 AM This report has been signed electronically.
[2018-07-30 12:20] LABS: Pathologist Review Reviewed
[2018-07-30 12:23] LABS: Pathologist Review Reviewed
[2018-07-30 12:26] LABS: Pathologist Review Reviewed
--- NOTE | 2018-07-30 12:32 | PCM.PN.BLA ---
Progress Note EEG did not show any signs of bleeding. Did recommend a colonoscopy to the patient was not interested in doing the prep but not as adamant and refusing once told her we could do Gatorade MiraLAX. But she has more focused on getting her proper Morgan and a narrowings and frappe from [facility]. Did discuss with the daughter Maryan who is also POA. She states that her mom will do the colonoscopy so we will plan to keep the patient on clears until she is able to talk with the patient. Patient agrees with doing the prep will plan to do colonoscopy about 230PM tomorrow. For the prep patient will be on clears okay for 1 small Frappuccino from [facility] no other milk products allowed. Patient will get 4 Dulcolax tabs and then 2 hours later will start drinking a combination of Gatorade 64 ounces and 8.3 ounces of MiraLAX dissolved in the Gatorade. Patient is to drink 8 ounces every 15-30 minutes okay to go slower if she gets nauseated.
--- NOTE | 2018-07-30 12:36 | PN_ITS ---
Progress Note EEG did not show any signs of bleeding. Did recommend a colonoscopy to the patient was not interested in doing the prep but not as adamant and refusing once told her we could do Gatorade MiraLAX. But she has more focused on getting her proper Morgan and a narrowings and frappe from [facility]. Did discuss with the daughter Maryan who is also POA. She states that her mom will do the colonoscopy so we will plan to keep the patient on clears until she is able to talk with the patient. Patient agrees with doing the prep will plan to do col onoscopy about 230PM tomorrow. For the prep patient will be on clears okay for 1 small Frappuccino from [facility] no other milk products allowed. Patient will get 4 Dulcolax tabs and then 2 hours later will start drinking a combination of Gatorade 64 ounces and 8.3 ounces of MiraLAX dissolved in the Gatorade. Patient is to drink 8 ounces every 15-30 minutes okay to go slower if she gets nauseated.
[2018-07-30] MEDS: Ensure Clear 120 ML Liquid PO (13:07)
[2018-07-30] MEDS: Pantoprazole Sodium 40 MG Tablet PO ×2 (13:07→20:38)
[2018-07-30] MEDS: Amiodarone 200 MG Tablet PO (13:07)
[2018-07-30] MEDS: QUEtiapine 25 MG Tablet PO ×2 (13:07→20:38)
[2018-07-30] MEDS: Furosemide 20 MG/2 ML VIAL IV (15:43)
[2018-07-30] MEDS: Bisacodyl 5 MG Tablet 20 MG PO (15:43)
--- NOTE | 2018-07-30 17:30 | NURSING ---
had smear of stool - dark in color
[2018-07-30] MEDS: Polyethylene Glycol 3350 17 GM PACKET 238 GM PO (17:45)
--- NOTE | 2018-07-30 20:56 | NURSING ---
upon entering pt room pt arguing with daughter regarding having colonoscopy done. pt states she is refusing to have test done. pt and daughter yelling back and fourth loudly. pt refusing most of assessment at this time. asked two times to assess backside and pt refused both times. states she doesn't have anything if she does not have her daughter. notified that pt is refusing colonoscopy for tomorrow and bowel prep.
[2018-07-31] VITALS (7 sets, daily range): BP systolic 115–117; BP diastolic 55–65; PULSE 85–100; RESP 16–18; TEMP 36.6–36.9; O2SAT 85–97
[2018-07-31] MEDS: Menthol/Lanolin/Calamine/Znox 113 GM Tube 1 APPLIC TOPICAL ×2 (01:58→06:45)
--- NOTE | 2018-07-31 03:47 | NURSING ---
Throughout entire shift any conversation with the patient has resulted in her yelling/screaming that can be heard down the huston near elevators. Frequently asking patient to use inside voice, daughter at bedside also attempting to assist in calming patient but not successful. Patient frequently changes mind on whether or not to complete bowel prep. Very confrontational with staff. Refusing turns and assessment at times. Resistive during turns, Throws tantrums as per daughter, by flailing extremities and screaming making changing her attends difficult for staff. Also trying to refuse attends change though she is inct. of stool. previously aware of situation.
--- NOTE | 2018-07-31 05:02 | NURSING ---
Pt completed bowel prep 0500. multiple, copious amounts of dark brown liquid stool noted.
[2018-07-31 06:36] LABS: Anion Gap 4 (5-15); BUN 36 mg/dL (7-18); BUN/Creat Ratio 35.6 RATIO (10-20); Calcium,Total 7.5 mg/dL (8.5-10.1); Chloride 113 mmol/L (98-107); Creatinine, Serum 1.01 mg/dL (0.55-1.02); EST Glomerular Filtration Rate 60 mL/min (>60); Est Glom Filt Rate - Afr Amer 73 mL/min (>60); Estimated Creatinine Clearance 53.71 ml/min; Glucose 76 mg/dL (74-106); Potassium 3.5 mmol/L (3.5-5.1); Sodium Level 143 mmol/L (136-145)
[2018-07-31 07:06] LABS: Hematocrit 28.6 % (37-47); Hemoglobin 8.9 g/dl (12.0-15.0); Mean Corp Hgb Conc 31.1 g/gl (32-36); Mean Corpuscular Hgb 29.6 pg (27.0-32.0); Mean Platelet Vol. 9.3 fl (6.2-12.0); Platelet Count 204 K/mm3 (150-450); RBC Distribution Width CV 18.3 % (11.6-14.6); RBC Distribution Width SD 63.7 fl (35.1-43.9); Red Blood Count 3.01 M/mm3 (4.2-5.4); White Blood Count 9.2 K/mm3 (4.4-11.0)
[2018-07-31 07:07] LABS: Differential Indicated MANUAL DIFF; POSITIVE COUNT YES; POSITIVE DIFFERENTIAL NO; POSITIVE MORPHOLOGY YES
[2018-07-31 07:42] LABS: Lymphocyte 17 % (19-41); Metamyelocyte 7 % (0-1); Monocyte 3 % (0-10); Myelocyte 2 (0-0); Neutrophil-Band 2 % (0-5); Neutrophil-Segmented 69 % (47-70); Platelet Estimate ADEQUATE (ADEQ); Red Cell Morphology NORM C+C NORMAL (NORM C&C); Total Cells Counted 100 (MANUAL DIFF)
[2018-07-31 07:44] LABS: Absolute Neutrophil Count 6.5 X10^3/uL (2.0-7.7)
--- NOTE | 2018-07-31 07:54 | PN_ITS ---
Patient Problems: Active and Suspected Problems Generalized weakness (Acute) Subjective: Patient was seen and examined. Refused to drink the magnesium citrate for colon preparation. Refused colonoscopy. Her daughter refused to be her power of title attorney anymore. Patient denies any complaints except for frequent bowel movements Objective: Physical exam: General: Alert, Oriented x3, Cooperative, No apparent distress, - - On 2 L of oxygen, obese HEENT: Atraumatic, PERRLA, EOMI, Normocephalic Oral: Moist Mucosa Neck: Supple Lungs: Diminished Cardiovascular: Regular rate, Regular Rhythm, Normal S1, Normal S2, No murmurs Abdomen: Bowel Sounds Present, Soft, Non Tender, Non-Distended, No Hepato- splenomegaly Extremities: Edema - bilateral trace pedal edema Skin: No rashes, No breakdown Musculoskeletal: No Tenderness to Palpation of Joints or Extremities Lymphatic: No Cervical, Supraclavicular, or Inguinal Adenopathy Neurological: Cranial nerves II-XII grossly intact Psych/Mental Status: Normal Affect, Appropriate Vitals/I&O's: Vital Signs Temp Pulse Resp BP Pulse Ox 98.4 F 100 16 116/55 L 94 07/31/18 01:59 07/31/18 01:59 07/31/18 02:09 07/31/18 01:59 07/31/18 01:59 Oxygen Flow Rate (L/min) 2 Oxygen Delivery Method Nasal Cannula Weight: 102.4 kg Body Mass Index (BMI) 38.5 Intake and Output for Last 24 Hours 07/29/18 07/30/18 07/31/18 23:59 23:59 23:59 Intake Total 18560 / 2519 Balance 1856 / 2519 Microbiology Past 72 Hours 07/29/18 11:00 Stool Stool Occult Blood (JIMI) - Final Occult Blood Positive Laboratory Results 07/28/18 20:45: Diff Path Review Reviewed 07/29/18 05:38: Diff Path Review Reviewed 07/30/18 05:25: Diff Path Review Reviewed 07/30/18 10:40: Hgb 9.5 L, Hct 30.2 L 07/31/18 05:30: WBC 9.2, RBC 3.01 L, Hgb 8.9 L, Hct 28.6 L, MCV 95.0, MCH 29.6, MCHC 31.1 L, RDW 18.3 H, RDW Differential 63.7 H, Plt Count 204, MPV 9.3, Neut % (Auto) Not Reportable, Absolute Neuts (auto) 6.5, Absolute Lymphs (auto) 1.60, Total Counted 100, Neutrophils % (Manual) 69, Band Neutrophils % 2, Lymphocytes % (Manual) 17 L, Monocytes % (Manual) 3, Metamyelocytes % 7 H, Myelocytes % 2 H, Diff Path Review August, Platelet Estimate ADEQUATE, RBC Morphology NORM C+C 07/31/18 05:30: Sodium 143, Potassium 3.5, Chloride 113 H, Carbon Dioxide 26.0, Anion Gap 4 L, BUN 36 H, Creatinine 1.01, Estim Creat Clear Calc 53.71, Est GFR (MDRD) Af Amer 73, Est GFR (MDRD) Non-Af 60, BUN/Creatinine Ratio 35.6 H, Glucose 76, Calcium 7.5 L Current Medications Acetaminophen (Tylenol) 650 mg PO Q6H PRN PRN PRN Reason: PAIN Acetaminophen (Tylenol) 650 mg PO Q6H PRN PRN PRN Reason: Mild Pain (1-3)/Temp > 100.7 F Albuterol Sulfate (Ventolin Aerosols) 2.5 mg INHALATION Q2H PRN PRN PRN Reason: SHORTNESS OF BREATH Amiodarone HCl (Cordarone) 200 mg PO DAILY [facility] Last Admin: 07/30/18 13:07 Dose: 200 mg Calamine/Phenol (Calmoseptine Ointment) 1 applic TOPICAL TID [facility]; Protocol Last Admin: 07/31/18 06:45 Dose: 1 applicatio Ipratropium [place] (Atrovent) 0.5 mg INHALATION Q4H PRN PRN PRN Reason: SOB &/OR WHEEZING Nutritional Formula (Lactose Free) (Ensure Clear) 120 ml PO 4X/DAY [facility] Last Admin: 07/30/18 20:39 Dose: Not Given Ondansetron HCl (Zofran) 4 mg IV Q8H PRN PRN PRN Reason: NAUSEA Pantoprazole Sodium (Protonix) 40 mg PO BID [facility] Last Admin: 07/30/18 20:38 Dose: 40 mg Quetiapine Fumarate (Seroquel) 25 mg PO BID [facility] Last Admin: 07/30/18 20:38 Dose: 25 mg Senna/Docusate Sodium (Senokot-S, Yanet-Colace) 2 tablet PO DAILY PRN PRN PRN Reason: CONSTIPATION Sodium Chloride () 5 - 15 ml IV UD PRN PRN Reason: SALINE FLUSH Last Admin: 07/30/18 15:43 Dose: 10 ml Sodium Chloride ([place] Nasal [place]) 1 spray NASAL TID PRN PRN PRN Reason: NASAL DRYNESS Last Admin: 07/29/18 23:06 Dose: 1 spray Medical Necessity - Tobacco Use Smoking Status: Current every day smoker Tobacco Use: Cigarettes Assessment/Plan All Active Problems Severe sepsis (Acute) Acute respiratory failure with hypoxia (Acute) Pneumonia (Acute) Atrial fibrillation with RVR (Acute) LYNNETTE (acute kidney injury) (Acute) Problem with dialysis access (Acute) Generalized weakness (Acute) 58-year-old with multiple comorbidities, recently admitted with LYNNETTE, septic shock, [facility]. Patient reportedly signed out AMA, but was readmitted to the hospital with progressive weakness. 1. Acute iron deficiency anemia secondary to acute GI bleed, status post 2 units pRBC status post IV Venofer, recent history of GI bleed, recent admission to [facility], refused GI workup General surgery consulted, status post EGD that was unremarkable, Patient refused colonoscopy preparation. Will continue on PPI 2. Debility secondary to concurrent comorbidities, worsening bilateral lower extremity weakness, history of chronic back pain, MRI of the lumbar spine showed L3-L4 moderate central canal stenosis. PT and OT consulted 3. Paroxysmal atrial fibrillation, off Eliquis, on amiodarone 4. Recent LYNNETTE secondary to ATN, and was on dialysis, creatinine appears improved 5. Hypokalemia, resolved 6. Hypernatremia likely secondary to dehydration, resolved 7. Recent cardiac arrest status post septic shock 8. DVT PPx -SCDs 9. Medical decision making capabilities, unclear etiology. Patient clearly lacks the capacity to make medical decisions; daughter who is her listed power of title attorney refused to be her power of title attorney for health anymore. Patient has a sister also listed. Medical decision making has to be via power of title attorney as patient clearly lacks the capacity to make medical decision. Code Visit Inpatient E&M: 63479 Subs Hosp L2
--- NOTE | 2018-07-31 08:26 | PN.SURG_ITS ---
Patient Problems: Active and Suspected Problems Generalized weakness (Acute) Subjective: Patient did complete her prep at 5 AM this morning. nursing says she still having some dark stools did give additional magnesium citrate colonoscopy scheduled for 2:30 PM, patient is currently sleeping Dr. Hargrove is in the room. - Physical Exam General: - - Patient is sleeping Vital Signs Temp Pulse Resp BP Pulse Ox 98.4 F 100 16 116/55 L 94 07/31/18 01:59 07/31/18 01:59 07/31/18 02:09 07/31/18 01:59 07/31/18 07:24 Oxygen Flow Rate (L/min) 2 Oxygen Delivery Method Nasal Cannula Weight: 225 lb 12.054 oz Body Mass Index (BMI) 38.5 Intake and Output for Last 24 Hours 07/29/18 07/30/18 07/31/18 23:59 23:59 23:59 Intake Total 1857 / 1857 2520 / 2520 1999 Balance 1857 / 1857 2520 / 2520 1999 Microbiology Past 72 Hours 07/29/18 11:00 Stool Occult Blood (JIMI) - Final Stool Occult Blood Positive Laboratory Tests Past 24 Hrs 07/28/18 07/29/18 07/30/18 20:45 05:38 05:25 WBC RBC Hgb Hct MCV MCH MCHC RDW RDW Differential Plt Count MPV Neut % (Auto) Absolute Neuts (auto) Absolute Lymphs (auto) Total Counted Neutrophils % (Manual) Band Neutrophils % Lymphocytes % (Manual) Monocytes % (Manual) Metamyelocytes % Myelocytes % Diff Path Review Reviewed Reviewed Reviewed Platelet Estimate RBC Morphology Sodium Potassium Chloride Carbon Dioxide Anion Gap BUN Creatinine Estim Creat Clear Calc Est GFR (MDRD) Af Amer Est GFR (MDRD) Non-Af BUN/Creatinine Ratio Glucose Calcium 07/30/18 07/31/18 07/31/18 10:40 05:30 05:30 WBC 9.2 RBC 3.01 L Hgb 9.5 L 8.9 L Hct 30.2 L 28.6 L MCV 95.0 MCH 29.6 MCHC 31.1 L RDW 18.3 H RDW Differential 63.7 H Plt Count 204 MPV 9.3 Neut % (Auto) Not Reportable Absolute Neuts (auto) 6.5 Absolute Lymphs (auto) 1.60 Total Counted 100 Neutrophils % (Manual) 69 Band Neutrophils % 2 Lymphocytes % (Manual) 17 L Monocytes % (Manual) 3 Metamyelocytes % 7 H Myelocytes % 2 H Diff Path Review May foll Platelet Estimate ADEQUATE RBC Morphology NORM C+C Sodium 143 Potassium 3.5 Chloride 113 H Carbon Dioxide 26.0 Anion Gap 4 L BUN 36 H Creatinine 1.01 Estim Creat Clear Calc 53.71 Est GFR (MDRD) Af Amer 73 Est GFR (MDRD) Non-Af 60 BUN/Creatinine Ratio 35.6 H Glucose 76 Calcium 7.5 L Medical Necessity - Tobacco Use Smoking Status: Current every day smoker Tobacco Use: Cigarettes Assessment/Plan All Active Problems Severe sepsis (Acute) Acute respiratory failure with hypoxia (Acute) Pneumonia (Acute) Atrial fibrillation with RVR (Acute) LYNNETTE (acute kidney injury) (Acute) Problem with dialysis access (Acute) Generalized weakness (Acute) Patient's having some dark stools as well give her some magnesium citrate to see if this improves prior to colonoscopy scheduled at 2:30 PM or discussed with daughter may need to reschedule for tomorrow. However it was not easy to get the patient to complete the prep initially unsure if she would be willing to wait. I have offered the patient colonoscopy for evaluation. I have explained the risks/benefits of the procedure and described the pro cedure. I have discussed the risks with the patient and daughter, including but not limited to: infection, bleeding, perforation of the GI tract requiring emergency surgery, inability to complete the procedure due to a tortuous colon or poor prep, injury to any internal organs, complications of anesthesia, etc. - the patient/daughter understands and agrees to proceed. I have answered all the patient and daughter's questions and they have no further questions. Ginny Guerrero M.D. Pager: [phone] [facility] [address] [place] [address], [facility], [address] [place] [address] Office: [phone]
[2018-07-31] MEDS: Magnesium Citrate 300 ML 150 ML PO (08:34)
--- NOTE | 2018-07-31 08:53 | NURSING ---
GAVE PT ORDERED DOSE OF MAG CITRATE. PT STATES NOPE, NOT DRINKING IT. EXPLAINED IMPORTANCE OF THIS TO PT. PT (WITHOUT OPENING EYES TO LOOK @ THIS NURSE) AGAIN STATES NO & TURN HEAD AWAY FROM ME. DAUGHTER @ BS. ALSO TRYING TO ENCOURAGE PT TO DRINK MAG CITRATE. PT CONTINUES TO REFUSE.
--- NOTE | 2018-07-31 08:58 | NURSING ---
DAUGHTER CAME TO NURSES STATION & TOLD CHARGE NURSE THAT PT IS STILL REFUSING MAG CITRATE. DAUGHTER STATES IM DONE. I DO NOT WANT TO BE HER POA ANYMORE. I DONT CARE WHAT SHE DOES OR DOESN'T DO. DR JEFFRIES HERE ON DEPARTMENT & MADE AWARE OF SAME.
--- NOTE | 2018-07-31 09:13 | NURSING ---
DR JEFFRIES IN TO SEE PT. PT REFUSING TO COMPLETE BOWEL PREP. SENT TEXT TO DO CABRALES MAKING HER AWARE.
--- NOTE | 2018-07-31 11:08 | CASEMGMT ---
Addendum entered by Sydnie Bautista 07/31/18 11:45: Pt is discharged. SW faxed all discharge information including hospital exemption completed in [place] to [facility]. SW spoke to pt, let her know she is discharged and can go to [facility] today. Pt asked if she can go around 4pm as her nephew is coming to have lunch with her. Pt also agreeable to have SW call her daughter to let her know she is going today. SW also encouraged pt to participate in therapy, as this is how insurance will be billed(pt has been intermittently participating here). Pt acknowledged what SW said but then changed the subject back to having lunch w/her nephew. SW called [facility], set up a 3:30pm ambulance. SW called daughter to let her know pt is going to [facility] at 3:30pm today. SW asked daughter about continuing to be pt's POA, asked what SW should tell [facility]. Daughter states that [facility] can call her. SW called [facility], spoke to Juanita in admissions. SW let her know pt is set up for 3:30pm, let her know also that daughter has said [facility] can call her. SW let pt know that she will be picked up at 3:30pm. SW again encouraged her to participate in therapy. SW let RN here know also pt will be picked up at 3:30pm. No further needs anticipated at this time. TATUM Wei, IT BUSINESS ANALYST Original Note: As per RN, pt is refusing colonoscopy prep, so can be discharged today. Also, pt's daughter Maryan has stated she does not want to be POA any more. During this admission, daughter had been involved with discharge planning so SW will still call daughter when appropriate. MATTHEW called Toya in admissions at [facility]. They have precert so pt can come today. SW let Toya know that daughter is stating does not want to be POA, will let her know what daughter states when SW speaks w/her. There is a son on the POA forms listed as alternate. SW faxed POA forms to [facility]. RN texted physician to let her know precert is attained and pt can be discharged from this perspective, there is a SNF bed and precert for it. SW will await discharge orders and arrange pt going to [facility], will call daughter. TATUM Wei, IT BUSINESS ANALYST
[2018-07-31] MEDS: QUEtiapine 25 MG Tablet 50 MG PO (11:17)
[2018-07-31] MEDS: Amiodarone 200 MG Tablet PO ×2 (11:17)
--- NOTE | 2018-07-31 11:18 | CASEMGMT ---
LW/POA forms in chart from July 28, 2018. Pt's daughter Maryan is listed as POA and son Andrew is listed as second. The forms should be scanned in at discharge to replace forms in echart from 2016. TATUM Wei, STAMP ANALYST
--- NOTE | 2018-07-31 11:19 | PCM.TXEXTCAR ---
- Diet 07/31/18 10:35 Diet: Regular Diet Is pt able to select menu?: No Diet Comments: NOTHING RED - Routine Orders/Code Status Routine Lab Work: CBC - within 3 days, BMP - within 3 days - Wound(s) coccyx Wound Type: Pressure Injury sacrum Wound Type: Pressure Injury Dressing Change: applied a 3cm x 3cm Mepilex dressing - Therapies Weight Bearing: Weight bearing as tolerated Physical Therapy: Eval and Treat Occupational Therapy: Eval and Treat - Allergies/Procedures Done in Hospital Allergies/Adverse Reactions: Allergies aspirin Allergy (Verified 07/29/18 11:21) Swelling erythromycin base [Erythromycin Base] Allergy (Verified 07/29/18 11:21) Anaphylaxis Penicillins Allergy (Verified 07/29/18 11:21) Anaphylaxis venom-honey bee [bee venom (honey bee)] Adverse Reaction (Verified 07/29/18 11:21) Other Procedures: None - Type of Care/Length of Stay Estimated LOS: Convalescent Care Less Than 30 days Type of Care Needed: Skilled Rehab Potential: Good Prognosis: Good - Additional Orders/Day of Discharge Day of Discharge: 07/31/18 - Dietary and Speech Recommendations Dietitian Recommendations/Changes: Rec iron supplement d/t low H/H - Follow Up Care Primary Care Physician: Jose Kaplan MD [Primary Care Provider] - Please follow up with your Primary Care Physician in: within 1-2 weeks after discharge
--- NOTE | 2018-07-31 11:24 | DS.PCM_ITS ---
Discharge Date and Diagnosis - Problem List Patient Problems: Active and Suspected Problems Generalized weakness (Acute) Date of Admission: 07/28/18 Date of Discharge: 07/31/18 - Primary Discharge Diagnosis Active and Suspected Problems Generalized weakness (Acute) - Secondary Discharge Diagnosis Chronic Problems Morbid obesity (Chronic) Tobacco use (Chronic) Hospital Course and Treatment Imaging Results: Clinical Impression(s) from Imaging Studies Chest X-Ray 07/28/18 20:56 IMPRESSION: New multiple right lateral rib fractures, no pneumothorax Significant improvement of the pulmonary edema pattern with decreased size right pleural effusion, improving left lower lobe infiltrate 6 mm left upper lobe pulmonary nodular density suspicious for pulmonary nodule, this could also represent a summation artifact due to overlying ribs or pulmonary vessel. CT chest follow-up is recommended Stable mild cardiomegaly Electronically Signed: Adonis Calhoun at 22:29 EDT Tel , Service support , Lumbar Spine MRI 07/29/18 09:06 IMPRESSION: L3/L4: Moderate central canal stenosis. Electronically Signed: Lily Braun MD at 9:28 EDT Tel , Service support , Consultations 07/28/18 23:10 Consult: Onc/Wound/electric motor controls assembler Routine Comment: Operations: None Procedures: EGD Summary of Care Provided: 58-year-old with multiple comorbidities, recently admitted with LYNNETTE, septic shock, discharged to correction facility. Patient reportedly signed out AMA from her correction facility, but was readmitted to the hospital with progressive weakness. She was reportedly unable to get out of the car when she go home. Patient's hemoglobin on admission was 7.9. She was recently admitted to [facility], transfuse 8 units of packed RBC, refused GI workup. Hemoglobin dropped to 6.6. Received 2 units of packed RBC. General surgery was consulted. EGD was performed that was unremarkable. Patient was being prepped for colonoscopy. She refused colonoscopy preparation. Patient demonstrated repeatedly a lack of capacity to make medical decisions. Likely etiology is multifactorial. Unclear history of schizoaffective disorder or learning disability. Her daughter who was a power of senior trial attorney for healthcare refused to be involved in the care anymore. Patient was discharged on p.o. iron to a correction facility. Patient Problems: Active and Suspected Problems Generalized weakness (Acute) Subjective: See progress note of the day Objective: See progress note of the day - Physical Exam Vital Signs Temp Pulse Resp BP Pulse Ox 97.9 F 87 18 117/65 94 07/31/18 08:00 07/31/18 08:00 07/31/18 08:00 07/31/18 08:00 07/31/18 08:00 Oxygen Flow Rate (L/min) 2 Oxygen Delivery Method Nasal Cannula Weight: 102.4 kg Body Mass Index (BMI) 38.5 Intake and Output for Last 24 Hours 07/29/18 07/30/18 07/31/18 23:59 23:59 23:59 Intake Total 1856 252 / 2519 Balance 1856 / 2519 Microbiology Past 72 Hours 07/29/18 11:00 Stool Occult Blood (JIMI) - Final Stool Occult Blood Positive Laboratory Tests Past 24 Hrs 07/28/18 07/29/18 07/30/18 20:45 05:38 05:25 WBC RBC Hgb Hct MCV MCH MCHC RDW RDW Differential Plt Count MPV Neut % (Auto) Absolute Neuts (auto) Absolute Lymphs (auto) Total Counted Neutrophils % (Manual) Band Neutrophils % Lymphocytes % (Manual) Monocytes % (Manual) Metamyelocytes % Myelocytes % Diff Path Review Reviewed Reviewed Reviewed Platelet Estimate RBC Morphology Sodium Potassium Chloride Carbon Dioxide Anion Gap BUN Creatinine Estim Creat Clear Calc Est GFR (MDRD) Af Amer Est GFR (MDRD) Non-Af BUN/Creatinine Ratio Glucose Calcium 07/31/18 07/31/18 05:30 05:30 WBC 9.2 RBC 3.01 L Hgb 8.9 L Hct 28.6 L MCV 95.0 MCH 29.6 MCHC 31.1 L RDW 18.3 H RDW Differential 63.7 H Plt Count 204 MPV 9.3 Neut % (Auto) Not Reportable Absolute Neuts (auto) 6.5 Absolute Lymphs (auto) 1.60 Total Counted 100 Neutrophils % (Manual) 69 Band Neutrophils % 2 Lymphocytes % (Manual) 17 L Monocytes % (Manual) 3 Metamyelocytes % 7 H Myelocytes % 2 H Diff Path Review May foll Platelet Estimate ADEQUATE RBC Morphology NORM C+C Sodium 143 Potassium 3.5 Chloride 113 H Carbon Dioxide 26.0 Anion Gap 4 L BUN 36 H Creatinine 1.01 Estim Creat Clear Calc 53.71 Est GFR (MDRD) Af Amer 73 Est GFR (MDRD) Non-Af 60 BUN/Creatinine Ratio 35.6 H Glucose 76 Calcium 7.5 L Discharge Diet: Low fat/ Low Cholesterol, 2000 mg Sodium Diet Discharge Activity: Return to Normal Activity Home Medications: Medications to take at Discharge Acetaminophen [Tylenol Tablet] 650 mg PO Q6H PRN PRN tablet 07/05/18 Albuterol Aerosols [Ventolin Aerosols] 2.5 mg INHALATION Q2H PRN PRN vial.neb. 07/05/18 Amiodarone HCl [Cordarone] 200 mg PO DAILY tablet 07/05/18 Pantoprazole Sodium [Protonix] 40 mg PO BID tablet 07/05/18 Senna/Docusate Sodium [Senokot-S] 2 tablet PO DAILY PRN PRN tablet 07/05/18 Folic Acid 1 mg PO DAILY@0800 07/29/18 Hypromellose [Pure & Gentle Eye Drops] 1 drop EACH EYE Q4H PRN PRN 07/29/18 Ensure Clear 120 ml PO 4X/DAY liquid 07/31/18 Ferrous Sulfate 325 mg PO BID #0 07/31/18 Ipratropium [Atrovent Aerosols] 0.5 mg INHALATION Q4H PRN PRN solution 07/31/18 Menthol/Lanolin/Calamine/Znox [Calmoseptine Ointment] 1 applic TOPICAL TID tube 07/31/18 Quetiapine Fumarate [Seroquel] 50 mg PO BID tablet 07/31/18 Primary Care Physician: Jose Kaplan MD [Primary Care Provider] - Please follow up with your Primary Care Physician in: within 1-2 weeks after discharge Disposition: [facility] facility Minutes spent on discharge:: 40 Patient Condition:: Stable Medical Necessity - Tobacco Use Smoking Status: Current every day smoker Tobacco Use: Cigarettes Meaningful Use Info Meaningful Use Diagnoses (Choose all that apply): None applicable Code Visit Inpatient E&M: 63933 Disch Hosp
[2018-07-31 13:51] LABS: Pathologist Review Reviewed
--- NOTE | 2018-07-31 14:59 | NURSING ---
PT PLACED ON O2 2L NC
--- NOTE | 2018-07-31 15:19 | NURSING ---
REPORT CALLED TO THE [employer] @ [facility]
--- NOTE | 2018-08-01 10:50 | CASEMGMT ---
DEENA SANCHEZ NOTE: Per , insurance has denied approval for In-patient hospitalization. Dr Gutierrez agreeable to peer to peer. made aware and arrangements have been made for them to contact Dr Gutierrez tomorrow /. Andrade TORRES RN CM
== END 2018-07-31 15:45 | disposition skilled nursing facility (03) | DRG 663 ==
LOC: ED 20:42 → MS2 22:20
PROVIDERS: Anesthesiology; Surgery; Admitting Provider Internal Medicine; Emergency Provider Emergency Medicine; Family Provider Family Medicine; PCP Family Medicine; Visit Provider Internal Medicine
PROC: 0DJ08ZZ Inspection of Upper Intestinal Tract, Via Natural or Artificial Opening Endoscopic (ICD-10-PCS; CPT 43235; principal; 2018-07-30 11:25)
DX: D50.0 Iron deficiency anemia secondary to blood loss (chronic) (principal); R53.1 Weakness; L89.153 Pressure ulcer of sacral region, stage 3; E87.0 Hyperosmolality and hypernatremia; E87.6 Hypokalemia; F17.210 Nicotine dependence, cigarettes, uncomplicated; I48.0 Paroxysmal atrial fibrillation; Z86.74 Personal history of sudden cardiac arrest; E86.0 Dehydration; R53.81 Other malaise; E66.01 Morbid (severe) obesity due to excess calories; K92.2 Gastrointestinal hemorrhage, unspecified; Z68.38 Body mass index [BMI] 38.0-38.9, adult; G89.29 Other chronic pain; M54.9 Dorsalgia, unspecified; M48.061 Spinal stenosis, lumbar region without neurogenic claudication
CPT/HCPCS: 36415; 71045; 72148; 80048; 82040; 82274; 83540; 83550; 85014; 85018; 85025; 85610; 85730; 86850; 86900; 86920; 86922; 93005; 97162; 97166; 97530; 97802; 99251; 99285; J1756; J7040; P9016; A4216; G0463; J1940; J3490

== ENCOUNTER 2018-08-02 00:29 | Emergency (ER) | payer MEDICAID, SELFPAY ==
[2018-07-30 09:22] VITALS: BMI 38.5
[2018-08-02 00:31] VITALS: BP 115/58; PULSE 98; RESP 18; TEMP 37.1; O2SAT 98; BMI 41.6
--- NOTE | 2018-08-02 01:13 | ED.DCSUM_ITS ---
History of Present Illness Chief Complaint: Upper Extremity Injury Informant: Patient Onset: Yesterday Context: Gradual Onset Timing: Continuous Quality: sore Location: at recent IV site, AC fossa Current Severity: Moderate Maximum Severity: Moderate Worsened by: palpation Relieved by: nothing Associated Symptoms: swelling entire RUE Narrative: Patient states she was admitted to a hospital in [place] for a month or more and was discharged 1-2 days ago to a correction in the local area. She does not know why she was admitted for so long. She is very poor historian. She had an IV in her right arm that was taken out and she states that the main reason she is here is to have that evaluated because it is sore and her arm is swollen. She denies any chest pain, shortness of breath, fevers, but she does feel dizzy/lightheaded like she is more anemic, and she has needed blood transfusions and has been told she will need blood transfusions all her life. She has no idea why. She denies any other new symptoms right now. She states that she did have some rectal bleeding within the past 2 months but has no idea when the last time she bled was. She cannot remember when her last bowel movement was. She denies any abdominal symptoms now. She is asking to have her hemoglobin checked. - Past Medical History (1) LYNNETTE (acute kidney injury) Status: Resolved (2) Acute respiratory failure with hypoxia Status: Resolved (3) Atrial fibrillation with RVR Status: Chronic (4) Generalized weakness Status: Chronic (5) Pneumonia Status: Resolved (6) Morbid obesity Status: Chronic Past Medical History - Allergies and Home Meds Allergies/Adverse Reactions: Allergies aspirin Allergy (Verified 07/29/18 11:21) Swelling erythromycin base [Erythromycin Base] Allergy (Verified 07/29/18 11:21) Anaphylaxis Penicillins Allergy (Verified 07/29/18 11:21) Anaphylaxis venom-honey bee [bee venom (honey bee)] Adverse Reaction (Verified 07/29/18 11:21) Other Primary Care Physician: Jose Kaplan MD [Primary Care Provider] - Surgical History: - - Left ankle surgery, left arm carpal tunnel surgery, tonsillectomy. 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 Paternal Family History: Reports: - - Patient denies any marked maternal or paternal family history including heart disease, diabetes or cancer. Review of Systems General: Reports: Malaise. Denies: Chills, Fever, Sweats Eyes: Denies: Visual changes - bilaterally, Diplopia ENT: Denies: Rhinorrhea, Sore throat Cardiovascular: Denies: Chest pain, Palpitations Respiratory: Denies: Dyspnea, Cough, Dyspnea on exertion Gastrointestinal: Reports: Hematochezia - at some point in last couple months. Denies: Abdominal pain, Nausea, Vomiting, Diarrhea, Melena Genitourinary: Denies: Dysuria, Hematuria, Frequency Musculoskeletal: Reports: Swelling - RUE, Extremity Pain Skin: Denies: Rash, Wounds Neurological: Denies: Headache, Weakness, Numbness Physical Exam Vital Signs/Narrative: Vital Signs Temp Pulse Resp BP Pulse Ox 08/02/18 00:31 98.7 F 98 18 115/58 L 98 Inital Vital Signs reviewed: Yes General: Well nourished, Well developed, Obese, No Acute Distress Head: Normocephalic, Atraumatic Eyes: Perrl, EOMI ENT: Moist mucous membranes, No rhinorrhea Neck: Supple, Nontender Cardiovascular: Regular rate, Regular rhythm, No murmurs. Negative for: Tachycardia Respiratory: No distress, CTA bilaterally, Chest nontender Abdomen: Soft, Nontender, Nondistended, Normal bowel sounds Back: Nontender, Normal Inspection Extremities: Tenderness - at IV site right AC fossa, and several cm proximally; palpable cord in same distribution. no erythema/signs of infection. no discharge from IV site, which appears to be healing well., Edema - nonpitting 1+ RUE; evident in hand. otherwise limited due to obesity. Skin: Normal color, No rash - including RUE; no lymphangitis., No Trauma Neurological: Alert, Oriented x3, Cranial nerves II-XII grossly intact, Normal Sensation, Weakness - generally all 4 exts; nonfocal and symmetric. Psychological: Normal affect, Normal Mood Diagnostic/Tx/Re-eval Laboratory Tests 08/02/18 Range/Units 01:15 WBC 8.9 (4.4-11.0) K/mm3 RBC 2.94 L (4.2-5.4) M/mm3 Hgb 8.7 L (12.0-15.0) g/dl Hct 28.2 L (37-47) % MCV 95.9 (81-99) fL MCH 29.6 (27.0-32.0) pg MCHC 30.9 L (32-36) g/gl RDW 17.8 H (11.6-14.6) % RDW Differential 59.2 H (35.1-43.9) fl Plt Count 195 (150-450) K/mm3 MPV 9.1 (6.2-12.0) fl - Medical Decision Making Hemoglobin 8.7. When I told the patient she stated, oh good. Similar to prior values. Her last one was 8.9. No indication for transfusion at this time. She was reassured about that in her right upper extremity which is probably superficial thrombi this but because her entire extremity is swollen, and ultrasound to rule out DVT would be reasonable. That is not a service that is available at night so she will be set up for it as an outpatient. ED Disposition - Plan for ED Patient: Disposition: Home or Assisted Living Diagnosis: Superficial venous thrombosis of right upper extremity, Chronic anemia Instructions: ED Phlebitis Superficial Referrals: Jose Kaplan MD [Primary Care Provider] - 3-5 Days if not improving Additional Instructions: Warm compresses to affected area of right arm, 3-4 times daily, 20 minutes each.
[2018-08-02 01:21] LABS: Hematocrit 28.2 % (37-47); Hemoglobin 8.7 g/dl (12.0-15.0); Mean Corp Hgb Conc 30.9 g/gl (32-36); Mean Corpuscular Hgb 29.6 pg (27.0-32.0); Mean Corpuscular Volume 95.9 fL (81-99); Mean Platelet Vol. 9.1 fl (6.2-12.0); Platelet Count 195 K/mm3 (150-450); RBC Distribution Width CV 17.8 % (11.6-14.6); RBC Distribution Width SD 59.2 fl (35.1-43.9); Red Blood Count 2.94 M/mm3 (4.2-5.4); White Blood Count 8.9 K/mm3 (4.4-11.0)
[2018-08-02 01:22] LABS: Scan Indicated on CBC? Y/N NO
[2018-08-02 02:19] VITALS: BP 114/70; PULSE 78; RESP 18; O2SAT 96
== END 2018-08-02 02:37 | disposition home or self-care (01) ==
PROVIDERS: Emergency Provider Emergency Medicine; Family Provider Family Medicine; PCP Family Medicine
DX: I82.611 Acute embolism and thrombosis of superficial veins of right upper extremity (principal); I48.91 Unspecified atrial fibrillation; E66.01 Morbid (severe) obesity due to excess calories; Z87.891 Personal history of nicotine dependence
CPT/HCPCS: 36415; 85027; 99284

== ENCOUNTER 2018-08-02 23:26 | Emergency (ER) | payer MEDICAID, SELFPAY ==
[2018-08-02 00:31] VITALS: BMI 41.6
[2018-08-02 23:29] VITALS: BP 129/73; PULSE 99; RESP 20; TEMP 37.1; O2SAT 97; BMI 42.9
--- NOTE | 2018-08-02 23:32 | EKG12_ITS ---
Test Reason : CP Blood Pressure : / mmHG Vent. Rate : 100 BPM Atrial Rate : 100 BPM P-R Int : 180 ms QRS Dur : 068 ms QT Int : 310 ms P-R-T Axes : 053 021 044 degrees QTc Int : 399 ms Normal sinus rhythm Low voltage QRS Septal infarct , age undetermined Abnormal ECG Confirmed by SAMANTHA CHRISTIAN, KORI ([id number]), technical writer and editor ALLISNO ROSE ([id number]) on 08/05/2018 11:02:06 AM Referred By: BB Confirmed By:KORI SINGH MD
--- NOTE | 2018-08-02 23:33 | ED.VIS.GEN ---
History of Present Illness Chief Complaint: Chest Pain Informant: Patient Onset: Hours - 1.5 Context: Sudden Onset - while coughing Timing: Continuous Quality: sore, thumping Location: right mid-chest, close to sternum. no radiation Current Severity: Moderate Maximum Severity: Moderate Worsened by: deep inspiration, palpation, coughing Relieved by: breathing easily Associated Symptoms: cough -- feels like needs to bring up sputum, but can't Narrative: No fevers. Patient was seen here by myself almost 24 hours ago for right upper extremity discomfort at an IV site, I sent her for an outpatient venous ultrasound which she obtained today, confirming the absence of a DVT and the presence of superficial thrombophlebitis. - Past Medical History (1) Superficial venous thrombosis of right upper extremity Status: Acute (2) Atrial fibrillation with RVR Status: Chronic (3) Chronic anemia Status: Inactive (4) Morbid obesity Status: Chronic (5) LYNNETTE (acute kidney injury) Status: Resolved Past Medical History - Allergies and Home Meds Allergies/Adverse Reactions: Allergies aspirin Allergy (Verified 08/02/18 23:29) Swelling erythromycin base [Erythromycin Base] Allergy (Verified 08/02/18 23:29) Anaphylaxis Penicillins Allergy (Verified 08/02/18 23:29) Anaphylaxis venom-honey bee [bee venom (honey bee)] Adverse Reaction (Verified 08/02/18 23:29) Other Primary Care Physician: Jose Kapaln MD [Primary Care Provider] - Surgical History: - - Left ankle surgery, left arm carpal tunnel surgery, tonsillectomy. Smoking Status: Former smoker - Family History Maternal Family History: Reports: - - Patient denies any marked maternal or paternal family history including heart disease, diabetes or cancer. Paternal Family History: Reports: - - Patient denies any marked maternal or paternal family history including heart disease, diabetes or cancer. Review of Systems General: Denies: Chills, Fever Eyes: Denies: Visual changes - bilaterally, Diplopia ENT: Denies: Sore throat Cardiovascular: Reports: Chest pain. Denies: Palpitations Respiratory: Reports: Dyspnea, Cough. Denies: Sputum Gastrointestinal: Denies: Abdominal pain, Nausea, Vomiting, Diarrhea, Melena, Hematochezia Musculoskeletal: Reports: Swelling - RUE, Extremity Pain - RUE Neurological: Denies: Headache, Weakness, Numbness Physical Exam Inital Vital Signs reviewed: Yes General: Well nourished, Well developed, Obese, No Acute Distress Head: Normocephalic, Atraumatic Eyes: Perrl, EOMI ENT: Moist mucous membranes, No rhinorrhea Neck: Supple, Nontender Cardiovascular: Regular rate, Regular rhythm, No murmurs Respiratory: No distress, CTA bilaterally, Chest tenderness - right chest, +reproduces her discomfort Abdomen: Soft, Nontender, Nondistended, Normal bowel sounds Back: Nontender, Normal Inspection Extremities: Tenderness - R AC fossa, similar to exam 24 h ago, Edema - RUE. Negative for: Calf Tenderness Skin: Normal color, No rash Neurological: Alert, Oriented x3, Cranial nerves II-XII grossly intact, Normal Strength, Normal Sensation Psychological: Normal affect, Normal Mood Diagnostic/Tx/Re-eval Impressions Chest X-Ray 08/02/18 23:45 IMPRESSION: 1. Multiple subacute right rib fractures. No pneumothorax. 2. Residual small right pleural effusion/hemothorax. 3. Cardiomegaly, unchanged. 4. No acute infiltrate or CHF. at 0009 Reported and signed by: Giuseppe Benton MD Electronically Signed: Giuseppe Benton, at 0:08 EDT Tel , Service support , 08/02/18 23:45 Chest 1 View (Portable) [RAD] Stat Laboratory Results 08/03/18 08/03/18 00:05 00:05 WBC 9.0 RBC 3.05 L Hgb 8.9 L Hct 29.7 L MCV 97.4 MCH 29.2 MCHC 30.0 L RDW 17.9 H RDW Differential 63.6 H Plt Count 210 MPV 9.5 Neut % (Auto) Not Reportable Absolute Neuts (auto) 5.8 Absolute Lymphs (auto) 2.07 Total Counted 100 Neutrophils % (Manual) 63 Band Neutrophils % 1 Lymphocytes % (Manual) 23 Monocytes % (Manual) 6 Eosinophils % (Manual) 2 Metamyelocytes % 2 H Myelocytes % 3 H Differential Comment SCANNED Diff Path Review May foll Smudge Cells RARE Platelet Estimate ADEQUATE Anisocytosis 2+ Sodium 145 Potassium 3.9 Chloride 109 H Carbon Dioxide 32.0 Anion Gap 4 L BUN 36 H Creatinine 1.11 H Estim Creat Clear Calc 48.87 Est GFR (MDRD) Af Amer 65 Est GFR (MDRD) Non-Af 54 L BUN/Creatinine Ratio 32.4 H Glucose 108 H Calcium 7.5 L Troponin I 0.024 - Rhythm Strip Rhythm Strip: Sinus Rhythm Rate: 100 Ectopy: None - EKG Initial EKG Interpretation: Sinus Rhythm, No Acute Injury Pattern, Non-Specific ST Changes - flattened T's throughout Prior: Unchanged - Medical Decision Making Chest x-ray shows no pneumonia. Her chest discomfort is reproducible, and in addition, is gone after she was treated with a duo nebulizer treatment. She states her breathing is improved. Her labs are unremarkable, troponin negative, EKG showing no acute injury. She has chronic anemia, chronic mild renal insufficiency, both of which are mostly unchanged. She has no significant leukocytosis. Given that she has no DVT, and superficial phlebitis does not cause pulmonary emboli, I do not think she needs further workup for pulmonary embolus acutely at this time. I think she is stable to be discharged back, she may continue symptom medic treatment. ED Disposition - Plan for ED Patient: Disposition: Home or Assisted Living Diagnosis: Acute bronchitis, Acute chest wall pain Instructions: ED Strain Chest Wall, Acute Bronchitis Referrals: Jose Kaplan MD [Primary Care Provider] - 2 Days
--- NOTE | 2018-08-02 23:45 | RAD_ITS ---
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 Multiple subacute, mildly displaced right rib fractures. No pneumothorax. Residual small right pleural effusion/hemothorax. Cardiomegaly, unchanged. No acute infiltrate or vascular congestion. Left lung appears clear. RAD/Chest 1 View (Portable) IMPRESSION: 1. Multiple subacute right rib fractures. No pneumothorax. 2. Residual small right pleural effusion/hemothorax. 3. Cardiomegaly, unchanged. 4. No acute infiltrate or CHF. at 0009 Reported and signed by: Giuseppe Benton MD Electronically Signed: Giuseppe Benton, at 0:08 EDT Tel , Service support ,
[2018-08-03] MEDS: Ipratropium/Albuterol Sulfate 3 ML AMPUL.NEB INHALATION (00:07)
[2018-08-03 00:08] VITALS: PULSE 101; RESP 20
[2018-08-03 00:59] VITALS: BP 111/63; PULSE 97; RESP 21; O2SAT 93
[2018-08-03 01:03] LABS: Hematocrit 29.7 % (37-47); Hemoglobin 8.9 g/dl (12.0-15.0); Mean Corpuscular Hgb 29.2 pg (27.0-32.0); Mean Corpuscular Volume 97.4 fL (81-99); Mean Platelet Vol. 9.5 fl (6.2-12.0); POSITIVE COUNT YES; POSITIVE DIFFERENTIAL NO; POSITIVE MORPHOLOGY YES; Platelet Count 210 K/mm3 (150-450); RBC Distribution Width CV 17.9 % (11.6-14.6); RBC Distribution Width SD 63.6 fl (35.1-43.9); Red Blood Count 3.05 M/mm3 (4.2-5.4)
[2018-08-03 01:04] LABS: Differential Indicated MANUAL DIFF
[2018-08-03 01:12] VITALS: BP 117/63; PULSE 100; RESP 20; TEMP 36.9; O2SAT 94
[2018-08-03 01:25] LABS: Anion Gap 4 (5-15); BUN 36 mg/dL (7-18); BUN/Creat Ratio 32.4 RATIO (10-20); Calcium,Total 7.5 mg/dL (8.5-10.1); Chloride 109 mmol/L (98-107); Creatinine, Serum 1.11 mg/dL (0.55-1.02); EST Glomerular Filtration Rate 54 mL/min (>60); Est Glom Filt Rate - Afr Amer 65 mL/min (>60); Estimated Creatinine Clearance 48.87 ml/min; Glucose 108 mg/dL (74-106); Potassium 3.9 mmol/L (3.5-5.1); Sodium Level 145 mmol/L (136-145)
[2018-08-03 01:47] LABS: Absolute Lymphocyte Count 2.07 X10^3/ul (0.83-4.51); Absolute Neutrophil Count 5.8 X10^3/uL (2.0-7.7); Lymphocyte 23 % (19-41); Lymphocyte # 2.07 X10^3/ul (4.0); Metamyelocyte 2 % (0-1); Monocyte 6 % (0-10); Myelocyte 3 (0-0); Neutrophil # 5.76 X10^3/uL (2.7-7.7); Neutrophil-Band 1 % (0-5); Neutrophil-Segmented 63 % (47-70); Total Cells Counted 100 (MANUAL DIFF)
[2018-08-03 01:48] LABS: Differential Comment SCANNED; Eosinophil 2 % (0-5)
[2018-08-03 01:52] LABS: Anisocytosis 2+; Platelet Estimate ADEQUATE (ADEQ); Smudge Cells RARE
[2018-08-03 03:29] VITALS: BP 115/68; PULSE 96; RESP 18; O2SAT 96
[2018-08-06 12:20] LABS: Pathologist Review Reviewed
== END 2018-08-03 03:00 | disposition home or self-care (01) ==
PROVIDERS: Emergency Provider Emergency Medicine; Family Provider Family Medicine; PCP Family Medicine
DX: J20.9 Acute bronchitis, unspecified (principal); R07.89 Other chest pain; I82.611 Acute embolism and thrombosis of superficial veins of right upper extremity; I48.91 Unspecified atrial fibrillation; E66.01 Morbid (severe) obesity due to excess calories; Z87.891 Personal history of nicotine dependence; Z79.899 Other long term (current) drug therapy
CPT/HCPCS: 36415; 71045; 80048; 84484; 85025; 85027; 93005; 94640; 99284; 99285

== ENCOUNTER 2018-08-04 17:18 | Emergency (ER) | payer MEDICAID, SELFPAY ==
[2018-08-04 17:19] VITALS: BP 138/76; PULSE 101; RESP 22; TEMP 37; O2SAT 95; BMI 42.9
--- NOTE | 2018-08-04 18:09 | EKG12_ITS ---
Test Reason : EDEMA Blood Pressure : / mmHG Vent. Rate : 096 BPM Atrial Rate : 096 BPM P-R Int : 158 ms QRS Dur : 080 ms QT Int : 328 ms P-R-T Axes : 053 030 056 degrees QTc Int : 414 ms Normal sinus rhythm Low voltage QRS Nonspecific T wave abnormality Abnormal ECG Confirmed by PETER CHRISTIAN, LUIS ([id number]), scientific editor ALLISON ROSE ([id number]) on 08/07/2018 1:10:07 PM Referred By: Confirmed By:LUIS GREEN MD
--- NOTE | 2018-08-04 18:09 | RAD_ITS ---
STUDY: X-RAY CHEST REASON FOR EXAM: Female, 58 years old. Shortness of breath TECHNIQUE: Frontal view of the chest COMPARISON: 08/02/2018 FINDINGS: There is a stable small right pleural effusion. There is no left-sided effusion. There are no focal infiltrates. The heart is enlarged, but stable. Again noted are multiple right-sided rib fractures. RAD/Chest 1 View (Portable) IMPRESSION: Stable small right pleural effusion. Stable cardiomegaly. Electronically Signed: Vidal Velasquez, at 18:29 EDT Tel , Service support ,
[2018-08-04 18:20] LABS: International Normalized Ratio 1.3; Prothrombin Time (Protime)PT. 15.7 SECONDS (11.7-14.9)
[2018-08-04 18:21] LABS: Partial Thromboplast Time 30.7 Seconds (24.1-36.2)
[2018-08-04 18:30] LABS: Anion Gap 3 (5-15); BUN 36 mg/dL (7-18); Calcium,Total 7.8 mg/dL (8.5-10.1); Chloride 109 mmol/L (98-107); Creatinine, Serum 1.06 mg/dL (0.55-1.02); EST Glomerular Filtration Rate 57 mL/min (>60); Est Glom Filt Rate - Afr Amer 69 mL/min (>60); Estimated Creatinine Clearance 51.17 ml/min; Glucose 110 mg/dL (74-106); Potassium 4.2 mmol/L (3.5-5.1); Sodium Level 143 mmol/L (136-145)
--- NOTE | 2018-08-04 18:34 | ED.VISSUMM ---
- ER Visit Summary Date of Service: 08/04/18 Chief Complaint: Right arm swelling, shortness of breath History of Present Illness: The patient is a 58 F presenting with right arm swelling, shortness of breath. Patient states this started yesterday. She was diagnosed with superficial thrombophlebitis a couple of days ago. States the swelling worsened. She complains of shortness of breath and chest pain. The chest pain has been chronic. She denies fever. She states she overall does not feel well. Denies other complaints. Physical Examination: Vitals are stable. Patient is afebrile. Alert no acute distress. HEENT exam is unremarkable. Neck is supple. Lungs are diminished bilaterally. Heart is regular rate and rhythm. Abdomen is soft obese nontender nondistended. Extremities right arm edema, normal pulse. No erythema or warmth. Skin is warm and dry. No focal neurologic deficit. Remainder of exam is unremarkable. Emergency Department Course and Treatment: Chest x-ray shows stable small right pleural effusion. EKG is sinus rate of 96 with no acute ischemic changes. CBC normal except for hemoglobin 9.1 which is at her baseline. Chemistries unremarkable. INR 1.3. Troponin 0.017. CTA chest was obtained and shows limited study. No central or segmental pulmonary embolus. No evidence of thoracic aortic aneurysm or dissection. Discussed with her daughter, power of commercial real estate attorney. She states the ultrasound at the custodial showed a very small superficial clot right arm. She is currently on Eliquis. Patient will be discharged back to the nursing facility. Advised follow-up with primary care physician. Disposition: Discharge home Impression: Right arm edema This note was generated with [employer] dictation software. It may contain incorrect words, spelling, and punctuation that were not noted in review of the chart prior to signing ED Disposition - Plan for ED Patient: Referrals: Jose Kaplan MD [Primary Care Provider] -
[2018-08-04 18:46] LABS: Hematocrit 29.6 % (37-47); Hemoglobin 9.1 g/dl (12.0-15.0); Mean Corp Hgb Conc 30.7 g/gl (32-36); Mean Corpuscular Hgb 29.7 pg (27.0-32.0); Mean Corpuscular Volume 96.7 fL (81-99); Mean Platelet Vol. 9.7 fl (6.2-12.0); Platelet Count 204 K/mm3 (150-450); RBC Distribution Width CV 17.4 % (11.6-14.6); RBC Distribution Width SD 61.2 fl (35.1-43.9); Red Blood Count 3.06 M/mm3 (4.2-5.4); White Blood Count 8.7 K/mm3 (4.4-11.0)
[2018-08-04 18:49] LABS: Differential Indicated MANUAL DIFF; POSITIVE COUNT YES; POSITIVE DIFFERENTIAL NO; POSITIVE MORPHOLOGY YES
[2018-08-04 19:09] LABS: Lymphocyte 35 % (19-41); Metamyelocyte 2 % (0-1); Monocyte 5 % (0-10); Myelocyte 1 (0-0); Neutrophil-Band 1 % (0-5); Neutrophil-Segmented 56 % (47-70); Total Cells Counted 100 (MANUAL DIFF)
[2018-08-04 19:11] LABS: Absolute Lymphocyte Count 3.03 X10^3/ul (0.83-4.51); Absolute Neutrophil Count 4.9 X10^3/uL (2.0-7.7)
--- NOTE | 2018-08-04 19:31 | CT_ITS ---
STUDY: CTA CHEST REASON FOR EXAM: Female, 58 years old. Pain and swelling of right arm. Shortness of breath. RADIATION DOSAGE (If Supplied By Facility): CTDIvol = ( 34.97 ) mGy, DLP = ( 722.10 ) mGycm TECHNIQUE: The examination was performed with the intravenous administration of 100ML IV Isovue 370. Post-processing of the angiographic images was performed, with multiplanar reformation and 3D reconstruction. Individualized dose optimization techniques were used for this CT. COMPARISON: Chest x-ray dated 08/05/2015. FINDINGS: This study is limited by patient motion and by streak artifact created by the patient's arms being at her side. There is a moderate right pleural effusion and small left pleural effusion with overlying atelectasis. There are no focal infiltrates. There is no pneumothorax. There is no central or segmental pulmonary embolus. The subsegmental branches are not well evaluated. There is no evidence of thoracic aortic aneurysm or dissection. The heart and pericardium are within normal limits. There is no thoracic lymphadenopathy. Bilateral healing rib fractures which appear subacute in nature. CT/CTA Chest W/WO Contrast IMPRESSION: Limited study. No central or segmental pulmonary embolus. No evidence of thoracic aortic aneurysm or dissection. Moderate right pleural effusion and small left pleural effusion with overlying atelectasis. Bilateral healing rib fractures which appear subacute in nature. Electronically Signed: Vidal Velasquez, at 20:40 EDT Tel , Service support ,
[2018-08-04 20:11] VITALS: BP 143/86; PULSE 96; RESP 19; O2SAT 96
--- NOTE | 2018-08-04 20:42 | ED.RN ---
I JUST SPOKE TO SARAH, (PATIENT'S POA)AND SHE SAID TO SEND HER MOTHER BACK SHE IS JUST WANTING ATTENTION. SHE HAS HAD ALL THESE TESTS ALREADY AND SHE REFUSES TO MOVE OR FOLLOW INSTRUCTIONS. DR. NUNN WAS MADE AWARE OF THIS CONVERSATION.
--- NOTE | 2018-08-04 20:45 | ED.RN ---
PATIENT WAS INCONTINENT OF A LARGE AMOUNT OF URINE. INCONTINENCE CARE DONE. THIS NURSE NOTED A SMALL OPEN AREA ON HER COCCYX THAT SHE SAID WAS BEING LOOKED AT AT THE [facility]. HER LEGS AND FEET ARE VERY DIRTY.
--- NOTE | 2018-08-04 21:58 | ED.DEP ---
ED Disposition - Plan for ED Patient: Instructions: ED Phlebitis Superficial Referrals: Jose Kaplan MD [Primary Care Provider] -
[2018-08-04 22:01] VITALS: BP 144/75; PULSE 99; RESP 17; O2SAT 96
[2018-08-05 11:41] LABS: Pathologist Review Reviewed
== END 2018-08-04 22:30 | disposition home or self-care (01) ==
PROVIDERS: Emergency Provider Emergency Medicine; Family Provider Family Medicine; PCP Family Medicine
DX: R60.0 Localized edema (principal); I80.9 Phlebitis and thrombophlebitis of unspecified site; E11.9 Type 2 diabetes mellitus without complications; I48.91 Unspecified atrial fibrillation; D64.9 Anemia, unspecified; E66.01 Morbid (severe) obesity due to excess calories; Z79.02 Long term (current) use of antithrombotics/antiplatelets; Z87.891 Personal history of nicotine dependence
CPT/HCPCS: 71045; 71275; 80048; 84484; 85025; 85610; 85730; 93005; 99285; Q9967; A4216

== ENCOUNTER 2018-08-05 20:24 | Emergency (ER) | payer MEDICAID, SELFPAY ==
[2018-08-04 17:19] VITALS: BMI 42.9
[2018-08-05 20:25] VITALS: BP 131/67; PULSE 105; RESP 20; RESP 22; TEMP 37; O2SAT 89; BMI 43.4
--- NOTE | 2018-08-05 21:08 | EKG12_ITS ---
Test Reason : Blood Pressure : / mmHG Vent. Rate : 103 BPM Atrial Rate : 103 BPM P-R Int : 158 ms QRS Dur : 074 ms QT Int : 314 ms P-R-T Axes : 050 023 052 degrees QTc Int : 411 ms Sinus tachycardia Low voltage QRS Nonspecific T wave abnormality Abnormal ECG Confirmed by SAMANTHA CHRISTIAN, KORI ([id number]), editor greeting card TAMMIE WHEELER ([id number]) on 08/12/2018 4:09:17 PM Referred By: KENNEDY Confirmed By:KORI SINGH MD
--- NOTE | 2018-08-05 21:14 | RAD_ITS ---
STUDY: X-RAY CHEST REASON FOR EXAM: Female, 58 years old. Chest pain TECHNIQUE: AP portable COMPARISON: August 14, 2018 FINDINGS: There is a small right pleural effusion and right lower lobe atelectasis or infiltrate.. Heart appears mildly enlarged. Normal mediastinum and mary. Normal visualized pulmonary arteries. Normal visualized aortic arch and descending thoracic aorta. Normal visualized thoracic spine. Normal visualized ribs, clavicles, and shoulders. There is no demonstrated abnormality of the visualized soft tissue structures of the upper abdomen. RAD/Chest 1 View (Portable) IMPRESSION: Small right pleural effusion and right lower lobe atelectasis or infiltrate Electronically Signed: Haris Wyman MD at 21:50 EDT , Service support ,
[2018-08-05 21:17] VITALS: O2SAT 94
[2018-08-05] MEDS: 0.9% Normal Saline 1,000 ML 150 ML IV (21:20)
[2018-08-05 21:22] VITALS: BP 144/63; PULSE 101; RESP 23; O2SAT 94
[2018-08-05 21:27] LABS: Hematocrit 28.8 % (37-47); Hemoglobin 8.9 g/dl (12.0-15.0); Mean Corp Hgb Conc 30.9 g/gl (32-36); Mean Corpuscular Hgb 30.1 pg (27.0-32.0); Mean Corpuscular Volume 97.3 fL (81-99); Mean Platelet Vol. 10.1 fl (6.2-12.0); Platelet Count 212 K/mm3 (150-450); RBC Distribution Width CV 17.2 % (11.6-14.6); RBC Distribution Width SD 61.2 fl (35.1-43.9); Red Blood Count 2.96 M/mm3 (4.2-5.4); White Blood Count 9.8 K/mm3 (4.4-11.0)
[2018-08-05 21:29] LABS: Differential Indicated MANUAL DIFF; POSITIVE COUNT YES; POSITIVE DIFFERENTIAL NO; POSITIVE MORPHOLOGY YES
[2018-08-05 21:40] LABS: Anion Gap 4 (5-15); BUN 36 mg/dL (7-18); BUN/Creat Ratio 31.9 RATIO (10-20); Calcium,Total 7.7 mg/dL (8.5-10.1); Chloride 107 mmol/L (98-107); Creatinine, Serum 1.13 mg/dL (0.55-1.02); EST Glomerular Filtration Rate 53 mL/min (>60); Est Glom Filt Rate - Afr Amer 64 mL/min (>60); Glucose 117 mg/dL (74-106); Lipase 219 U/L (73-393); Potassium 5.6 mmol/L (3.5-5.1); Sodium Level 141 mmol/L (136-145)
[2018-08-05 21:57] LABS: Eosinophil 1 % (0-5); Lymphocyte 25 % (19-41); Metamyelocyte 1 % (0-1); Monocyte 12 % (0-10); Neutrophil-Band 1 % (0-5); Neutrophil-Segmented 60 % (47-70); Total Cells Counted 100 (MANUAL DIFF)
[2018-08-05 21:58] LABS: Anisocytosis 1+; Platelet Estimate ADEQUATE (ADEQ); Red Cell Morphology N CHROM NORMAL (NORM C&C)
--- NOTE | 2018-08-05 22:32 | CM.ED ---
SOCIAL WORK NOTE REFERRAL FROM RN, Nikolai PHILLIPS, FOR MULTIPLE VISITS SINCE THE PT'S DISCHARGE FROM [facility] LAST WEEK. INTRODUCED SELF AND ROLE AT [facility]. PT IS LYING IN BED IN NO APPARENT DISTRESS. PT IS ALERT AND ORIENTED X3 AND ABLE TO PARTICIPATE. PT DOES HAVE DELAYED RESPONSES AND DOES NOT ENGAGE IN SOCIAL ETIQUETTE. INQUIRE WHY THE PT CAME TO [facility] AND SHE STATES, I KNOW MY BODY. INQUIRE WHAT SHE MEANS BY THIS AND STATES THAT SHE KNOWS WHEN HER HEMOGLOBIN DROPS. INFORM THE PT THAT SHE CAME IN FOR CHEST PAIN AND SHE STATES YEAH THAT TOO. INQUIRE WHY SHE DID NOT CONSULT NURSING STAFF AT THE FACILITY SHE IS IN AND SHE REPORTS THAT THEY DON'T KNOW. EDUCATE THE PT THAT THE STAFF AT THE FACILITY ARE EDUCATED BASED ON THEIR DEGREE OR CERTIFICATION AND ARE THERE TO ASSIST HER. PT REPORTS THAT SHE IS GOING TO GO LIVE WITH HER SISTER IN [place]. REQUEST THAT THE PT DESCRIBE HOW THIS WOULD WORK SINCE SHE CANNOT MANAGE HER CARE. PT SHOUTS, SEE YOU JUST CALLED ME STUPID. DISCUSS WITH THE PT THAT THIS GAMBRELER HELPER DID NOT CALL HER STUPID, AND INFORM THAT SHE PRESENTED TO THE ED LAST WEEK AFTER SIGNING OUT OF A FACILITY AMA AND WAS UNABLE TO GET OUT OF THE CAR AND WANTED PLACEMENT BECAUSE SHE WAS UNABLE TO MANAGE HER CARE. PT AGREES AND STATES HER SISTER CAN HELP HER. AGAIN REVIEW THE LIKELIHOOD OF THIS AND THAT IF THE PT IS GOING TO SEEK THIS OPTION SHE NEEDS TO ALLOW STAFF AT THE SNF TO ASSIST WITH DISCHARGE PLANNING. PT STATES SHE DOES NOT NEED OXYGEN AND STILL SMOKES. EDUCATE THE PT TO THE CONCERNS OF THIS AND THAT IF SHE CONTINUES TO COME IN WITH CHEST PAIN, WHY SHE WOULD CONSIDER BEING NONCOMPLIANT WITH OXYGEN AND CONTINUE TO SMOKE. PT AGAIN STATES THAT I KNOW MY BODY. INFORM THAT PT THAT SHE OPTED TO COME TO THE ED, STAFF DID NOT MAKE HER. EDUCATE THAT IF SHE IS GOING TO GO TO PLACES SEEKING ASSISTANCE, SHE NEEDS TO ACCEPT ASSISTANCE, AND IF SHE IS NOT AND IS GOING TO BE NON COMPLIANT WITH CARE WE MAYBE NEED TO DISCUSS HOSPICE CARE. PT STATES SHE IS NOT GOING TO GO ON HOSPICE. DISCUSS WITH PT THAT IF SHE DOES NOT START TAKING CARE OF HERSELF AND ALLOWING SAND SCREENER TO HELP HER WHEN SHE IS SEEKING ASSISTANCE SHE IS GOING TO NEED THAT SERVICE. PT STATES THAT SHE WILL RETURN TO THE AVENUE AND WON'T COME BACK TO THE ER. EXPLAIN THAT THIS GAMBRELER HELPER IS NOT SAYING SHE CANNOT RETURN, BUT IT NEEDS TO BE FOR MEDICAL EMERGENCIES AND ONLY AFTER CONSULTING MEDICAL STAFF AT HER FACILITY. NO FURTHER NEEDS AT THIS TIME. UPDATED RN. PLAN: RETURN TO SNF ONCE MEDICALLY CLEARED. Elva Ortega, WHEEL LACER AND TRUER, APPRAISER IRRIGATION TAX
[2018-08-05 22:48] VITALS: BP 149/80; PULSE 98; RESP 24; O2SAT 96
--- NOTE | 2018-08-05 23:03 | ED.VISSUMM ---
- ER Visit Summary Date of Service: 08/05/18 Chief Complaint: [Right-sided chest pain] History of Present Illness: The patient is a 58 F [presents to the emergency department with complaint of right-sided chest pain that started yesterday evening. Patient states the pain is been continuous and is a throbbing in nature. Patient states the pain is worse with deep breath and certain movements. Patient is not ambulatory. [facility] Patient apparently called EMS herself without discussing her complaints with staff. Her daughter who has power of transactional attorney for her is also with her in the room and states that this is the sixth time this week the patient has been to the emergency department. Patient was seen yesterday and had a CTA of the chest that showed bilateral effusions otherwise nothing acute. Patient has history of A. fib RVR, acute kidney injury, obesity, anemia, and sepsis. Patient has required blood transfusions for her anemia and she has refused a colonoscopy in the workup to attempt to find the etiology for her blood loss.] Physical Examination: [HEENT-PERRLA, EOMI. Cranial nerves II through XII grossly intact. TMs clear. Mucous membranes moist. No adenopathy. Cardiovascular-regular rate and rhythm without murmur or ectopy Lungs-good aeration bilaterally. Patient has some rales in the bases and some coarse breath sounds bilaterally. Occasional expiratory wheeze noted.. Patient has tenderness palpation over the right anterior chest wall that reproduces her pain. Abdomen-normoactive bowel sounds, soft, nontender, no rebound or rigidity, no peritoneal signs. Extremities-intact ?4, normal range of motion, normal pulses, atraumatic] Test Results: [EKG obtained arrival shows sinus rhythm with a ventricular rate of [address] changes noted. CBC with differential showed a white count of 9.8, hemoglobin 8.9, hematocrit 28, platelets 212. Chemistries were unremarkable other than a slightly elevated potassium of 5.6 however the specimen was moderately hemolyzed and patient has no hyperkalemic changes on EKG. Troponin was 0.018 and lipase was 219. Chest x-ray obtained showed small right effusion and right lower lobe atelectasis.] Emergency Department Course and Treatment: [Patient was seen by our director of social work in the emergency department and advised on utilizing the staff at the penitentiary as well as her primary care physicians.] Treatment Plan: [Patient will be discharged back to her extended care facility and advised to follow-up with primary care physician within next 3-5 days. I do not feel her chest pain is cardiac in nature. Discharge] Disposition: Discharge [] Impression: [Chest wall pain Chronic anemia] This note was generated with [employer] dictation software. It may contain incorrect words, spelling, and punctuation that were not noted in review of the chart prior to signing ED Disposition - Plan for ED Patient: Referrals: Jose Kaplan MD [Primary Care Provider] -
--- NOTE | 2018-08-05 23:07 | ED.DCSUM_ITS ---
- ER Visit Summary Date of Service: 08/05/18 Chief Complaint: [Right-sided chest pain] History of Present Illness: The patient is a 58 F [presents to the emergency department with complaint of right-sided chest pain that started yesterday evening. Patient states the pain is been continuous and is a throbbing in nature. Patient states the pain is worse with deep breath and certain movements. Patient is not ambulatory. Patient presents from assisted. Patient apparently called EMS herself without discussing her complaints with staff. Her daughter who has power of patent prosecution attorney for her is also with her in the room and states that this is the sixth time this week the patient has been to the emergency department. Patient was seen yesterday and had a CTA of the chest that showed bilateral effusions otherwise nothing acute. Patient has history of A. fib RVR, acute kidney injury, obesity, anemia, and sepsis. Patient has required blood transfusions for her anemia and she has refused a colonoscopy in the workup to attempt to find the etiology for her blood loss.] Physical Examination: [HEENT-PERRLA, EOMI. Cranial nerves II through XII grossly intact. TMs clear. Mucous membranes moist. No adenopathy. Cardiovascular-regular rate and rhythm without murmur or ectopy Lungs-good aeration bilaterally. Patient has some rales in the bases and some coarse breath sounds bilaterally. Occasional expiratory wheeze noted.. Patient has tenderness palpation over the right anterior chest wall that reproduces her pain. Abdomen-normoactive bowel sounds, soft, nontender, no rebound or rigidity, no peritoneal signs. Extremities-intact ?4, normal range of motion, normal pulses, atraumatic] Test Results: [EKG obtained arrival shows sinus rhythm with a ventricular rate of [address] changes noted. CBC with differential showed a white count of 9.8, hemoglobin 8.9, hematocrit 28, platelets 212. Chemistries were unremarkable other than a slightly elevated potassium of 5.6 however the specimen was moderately hemolyzed and patient has no hyperkalemic changes on EKG. Troponin was 0.018 and lipase was 219. Chest x-ray obtained showed small right effusion and right lower lobe atelectasis.] Emergency Department Course and Treatment: [Patient was seen by our clinical social work therapist in the emergency department and advised on utilizing the staff at the assisted as well as her primary care physicians.] Treatment Plan: [Patient will be discharged back to her extended care facility and advised to follow-up with primary care physician within next 3-5 days. I do not feel her chest pain is cardiac in nature. Discharge] Disposition: Discharge [] Impression: [Chest wall pain Chronic anemia] This note was generated with [employer] dictation software. It may contain incorrect words, spelling, and punctuation that were not noted in review of the chart prior to signing ED Disposition - Plan for ED Patient: Referrals: Jose Kaplan MD [Primary Care Provider] -
--- NOTE | 2018-08-05 23:07 | ED.DEP ---
ED Disposition - Plan for ED Patient: Instructions: ED Chest Pain Atypical Unkn Cause, Anemia Referrals: Jose Kaplan MD [Primary Care Provider] - 3-5 Days
[2018-08-05 23:25] LABS: Absolute Lymphocyte Count 2.45 X10^3/ul (0.83-4.51)
[2018-08-05 23:36] VITALS: BP 139/84; PULSE 100; RESP 22; O2SAT 94
[2018-08-06 12:32] LABS: Pathologist Review Reviewed
== END 2018-08-05 23:37 | disposition home or self-care (01) ==
PROVIDERS: Emergency Provider Emergency Medicine; Family Provider Family Medicine; PCP Family Medicine
DX: R07.89 Other chest pain (principal); D64.9 Anemia, unspecified; E66.9 Obesity, unspecified; Z87.891 Personal history of nicotine dependence
CPT/HCPCS: 71045; 80048; 83690; 84484; 85025; 93005; 96360; 96361; 99285; A4216

== ENCOUNTER 2018-08-07 21:28 | Emergency (ER) | payer MEDICAID, SELFPAY ==
[2018-08-07 21:31] VITALS: BP 133/64; PULSE 108; RESP 23; TEMP 36.7; O2SAT 92; BMI 42.3
--- NOTE | 2018-08-07 22:19 | RAD_ITS ---
STUDY: X-RAY CHEST REASON FOR EXAM: Female, 58 years old. Cough TECHNIQUE: Portable chest COMPARISON: FINDINGS: There are multiple subacute right lateral rib fractures. There is callus formation. There is decrease in size of the pleural effusions with improving lower lobe infiltrates and atelectasis. Normal size heart. Normal mediastinum and mary. Normal visualized pulmonary arteries. Normal visualized aortic arch and descending thoracic aorta. Normal visualized thoracic spine. Normal visualized ribs, clavicles, and shoulders. There is no demonstrated abnormality of the visualized soft tissue structures of the upper abdomen. RAD/Chest 1 View (Portable) IMPRESSION: Multiple subacute right lateral rib fractures Decrease in size of the pleural effusions with improving lower lobe infiltrates and atelectasis Electronically Signed: Adonis Calhoun, at 22:44 EDT Tel , Service support ,
--- NOTE | 2018-08-07 22:20 | ED.VISSUMM ---
- ER Visit Summary Date of Service: 08/07/18 Chief Complaint: Diarrhea History of Present Illness: The patient is a 58 F who [facility] a [facility] for [facility]. States that yesterday evening she has been having multiple episodes of watery diarrhea that is very stinky. Patient has nausea but has not had any vomiting. She also states she has a new cough. She feels fatigued and feels like her throat is closing up. Patient denies any recent changes in her medications. Patient denies fever, chest pain, shortness of breath, or other complaints at this time. Patient has been seen multiple times in the emergency department in the past week for multiple complaints including chest pain, shortness of breath and right arm swelling and pain related to a superficial thrombophlebitis. Patient is on Eliquis. Physical Examination: Vital signs: afebrile, hemodynamically stable, no hypoxia on room air General: well nourished, well developed, in no distress, BMI of 42 Skin: warm, dry, no rash, no pallor HEENT: normocephalic and atraumatic; PERRL, EOMI, moist mucous membranes Cardiovascular: regular rate and rhythm without murmurs, no peripheral edema, 2+ pulses all distal extremities Respiratory: No increased work of breathing, moist cough noted, coarse breath sounds Abdominal: Abdomen is soft, obese, mild tenderness without guarding, rebound; no masses, exam limited secondary to body habitus Back: decubitus ulcer with dressing in place, no surrounding cellulitis, erythema or induration MSK: Moves all extremities, no deformities, normal strength Neuro: Awake and alert, oriented ?4. No facial droop, sensation and motor function intact and symmetric Test Results: Abnormal Lab Results 08/07/18 08/07/18 22:35 22:35 WBC 7.8 RBC 2.95 L Hgb 8.7 L Hct 28.6 L MCV 96.9 MCH 29.5 MCHC 30.4 L RDW 17.1 H RDW Differential 61.1 H Plt Count 175 MPV 9.7 Neut % (Auto) Not Reportable Absolute Neuts (auto) Not Reportable Total Counted 100 Neutrophils % (Manual) 48 Band Neutrophils % 11 H Lymphocytes % (Manual) 25 Monocytes % (Manual) 3 Eosinophils % (Manual) 1 Basophils % (Manual) 1 Metamyelocytes % 10 H Blast Cells % 1 H* Differential Comment Diff Path Review May foll RBC Morphology NORM C+C Sodium 142 Potassium 4.4 Chloride 105 Carbon Dioxide 33.0 H Anion Gap 4 L BUN 32 H Creatinine 0.98 Estim Creat Clear Calc 55.35 Est GFR (MDRD) Af Amer 75 Est GFR (MDRD) Non-Af 62 BUN/Creatinine Ratio 32.5 H Glucose 93 Calcium 7.8 L Total Bilirubin 0.30 AST 33 ALT 24 Alkaline Phosphatase 301 H Total Protein 5.3 L Albumin 1.7 L Globulin 3.6 Albumin/Globulin Ratio 0.5 L Clinical Impression(s) from Imaging Studies Chest X-Ray 08/07/18 22:19 IMPRESSION: Multiple subacute right lateral rib fractures Decrease in size of the pleural effusions with improving lower lobe infiltrates and atelectasis Electronically Signed: Adonis Calhoun, at 22:44 EDT Tel , Service support , Abdomen/Pelvis CT 08/07/18 23:06 IMPRESSION: Prominent presacral edema. The lack of enhancement and lack of drainable fluid suggest that this is noninfectious third spacing of fluid; fasciitis/infection secondary to the sacral decubitus ulcer possible but less likely. No abscess, no osseous destruction. Bilateral pleural effusions with adjacent atelectasis again demonstrated. Evidence of renal disease with retained IV contrast presumably from the CTA chest performed 3 days ago. Other chronic findings as above. Individualized dose optimization techniques were used for this CT. at 0020 Reported and signed by: Dima Manzanares MD Electronically Signed: Dima Manzanares, at 0:19 EDT Tel , Service support , Emergency Department Course and Treatment: Patient has been to the emergency department multiple times this week, however today she is complaining of diarrhea and cough, which is new for her complaints. Because she is in healthcare facilities in and out of the hospitals, C. difficile was ordered. Patient CBC was concerning for 1% blasts and some metamyelocytes. The metamyelocytes were present on a prior CBC, but blasts were not. Patient was discussed with Dr. Sibley, reception clerk for Dr. Ruiz, regarding this finding, and it will be worked up outpatient. Hemoglobin was 8.7, which is stable. Chest x-ray showed no acute infiltrates. CT of the abdomen and pelvis showed no acute findings to explain patient's diarrhea or abdominal pain. It did show some presacral edema, and an evaluation of patient's back showed no findings concerning for cellulitis. She does have a decubitus ulcer with a dressing on, but there is no indication of surrounding cellulitis, and the presacral edema is most likely due to patient lying on her back most of the time. Patient had stool while in the emergency department that was loose but not diarrhea. It also did not have a foul odor that would be definitely concerning for C. difficile. A sample was sent. Patient had no findings on her workup that would require admission or further testing. Patient was well-appearing on reevaluation. She was [facility] back to the [facility] facility. Treatment Plan: [] Disposition: [] Impression: Abdominal pain, abnormal CBC, anemia This note was generated with [employer] dictation software. It may contain incorrect words, spelling, and punctuation that were not noted in review of the chart prior to signing ED Disposition - Plan for ED Patient: Disposition: Home or Assisted Living Instructions: ED Abdominal Pain Unkn Cause Referrals: Joes Kaplan MD [Primary Care Provider] - Abisai Ruiz MD [STAFF PHYSICIAN] - 3-5 Days Additional Instructions: Your labs today showed metamyelocytes and 1% blasts on your blood count, which are not normal values. You need to have these labs followed up by your primary care doctor. If you have any worsening of your condition or any new concerning symptoms, please return immediately to the emergency department for another evaluation.
--- NOTE | 2018-08-07 22:23 | ED.DCSUM_ITS ---
- ER Visit Summary Date of Service: 08/07/18 Chief Complaint: Diarrhea History of Present Illness: The patient is a 58 F who presents from a [facility] facility for diarrhea. States that yesterday evening she has been having multiple episodes of watery diarrhea that is very stinky. Patient has nausea but has not had any vomiting. She also states she has a new cough. She feels fatigued and feels like her throat is closing up. Patient denies any recent changes in her medications. Patient denies fever, chest pain, shortness of breath, or other complaints at this time. Patient has been seen multiple times in the emergency department in the past week for multiple complaints including chest pain, shortness of breath and right arm swelling and pain related to a superficial thrombophlebitis. Patient is on Eliquis. Physical Examination: Vital signs: afebrile, hemodynamically stable, no hypoxia on room air General: well nourished, well developed, in no distress, BMI of 42 Skin: warm, dry, no rash, no pallor HEENT: normocephalic and atraumatic; PERRL, EOMI, moist mucous membranes Cardiovascular: regular rate and rhythm without murmurs, no peripheral edema, 2+ pulses all distal extremities Respiratory: No increased work of breathing, moist cough noted, coarse breath sounds Abdominal: Abdomen is soft, obese, mild tenderness without guarding, rebound; no masses, exam limited secondary to body habitus Back: decubitus ulcer with dressing in place, no surrounding cellulitis, erythema or induration MSK: Moves all extremities, no deformities, normal strength Neuro: Awake and alert, oriented ?4. No facial droop, sensation and motor function intact and symmetric Test Results: Abnormal Lab Results 08/07/18 08/07/18 22:35 22:35 WBC 7.8 RBC 2.95 L Hgb 8.7 L Hct 28.6 L MCV 96.9 MCH 29.5 MCHC 30.4 L RDW 17.1 H RDW Differential 61.1 H Plt Count 175 MPV 9.7 Neut % (Auto) Not Reportable Absolute Neuts (auto) Not Reportable Total Counted 100 Neutrophils % (Manual) 48 Band Neutrophils % 11 H Lymphocytes % (Manual) 25 Monocytes % (Manual) 3 Eosinophils % (Manual) 1 Basophils % (Manual) 1 Metamyelocytes % 10 H Blast Cells % 1 H* Differential Comment Diff Path Review May foll RBC Morphology NORM C+C Sodium 142 Potassium 4.4 Chloride 105 Carbon Dioxide 33.0 H Anion Gap 4 L BUN 32 H Creatinine 0.98 Estim Creat Clear Calc 55.35 Est GFR (MDRD) Af Amer 75 Est GFR (MDRD) Non-Af 62 BUN/Creatinine Ratio 32.5 H Glucose 93 Calcium 7.8 L Total Bilirubin 0.30 AST 33 ALT 24 Alkaline Phosphatase 301 H Total Protein 5.3 L Albumin 1.7 L Globulin 3.6 Albumin/Globulin Ratio 0.5 L Clinical Impression(s) from Imaging Studies Chest X-Ray 08/07/18 22:19 IMPRESSION: Multiple subacute right lateral rib fractures Decrease in size of the pleural effusions with improving lower lobe infiltrates and atelectasis Electronically Signed: Adonis Calhoun, at 22:44 EDT Tel , Service support , Abdomen/Pelvis CT 08/07/18 23:06 IMPRESSION: Prominent presacral edema. The lack of enhancement and lack of drainable fluid suggest that this is noninfectious third spacing of fluid; fasciitis/infection secondary to the sacral decubitus ulcer possible but less likely. No abscess, no osseous destruction. Bilateral pleural effusions with adjacent atelectasis again demonstrated. Evidence of renal disease with retained IV contrast presumably from the CTA chest performed 3 days ago. Other chronic findings as above. Individualized dose optimization techniques were used for this CT. at 0020 Reported and signed by: iDma Manzanares MD Electronically Signed: Dima Manzanares, at 0:19 EDT Tel , Service support , Emergency Department Course and Treatment: Patient has been to the emergency department multiple times this week, however today she is complaining of diarrhea and cough, which is new for her complaints. Because she is in healthcare facilities in and out of the hospitals, C. difficile was ordered. Patient CBC was concerning for 1% blasts and some metamyelocytes. The metamyelocytes were present on a prior CBC, but blasts were not. Patient was discussed with Dr. Sibley, magnetic resonance imaging coordinator for Dr. Ruiz, regarding this finding, and it will be worked up outpatient. Hemoglobin was 8.7, which is stable. Chest x-ray showed no acute infiltrates. CT of the abdomen and pelvis showed no acute findings to explain patient's diarrhea or abdominal pain. It did show some presacral edema, and an evaluation of patient's back showed no findings concerning for cellulitis. She does have a decubitus ulcer with a dressing on, but there is no indication of surrounding cellulitis, and the presacral edema is most likely due to patient lying on her back most of the time. Patient had stool while in the emergency department that was loose but not diarrhea. It also did not have a foul odor that would be definitely concerning for C. difficile. A sample was sent. Patient had no findings on her workup that would require admission or further testing. Patient was well-appearing on reevaluation. She was discharged back to the correction facility. Treatment Plan: [] Disposition: [] Impression: Abdominal pain, abnormal CBC, anemia This note was generated with [employer] dictation software. It may contain incorrect words, spelling, and punctuation that were not noted in review of the chart prior to signing ED Disposition - Plan for ED Patient: Disposition: Home or Assisted Living Instructions: ED Abdominal Pain Unkn Cause Referrals: Jose Kaplan MD [Primary Care Provider] - Abisai Ruiz MD [STAFF PHYSICIAN] - 3-5 Days Additional Instructions: Your labs today showed metamyelocytes and 1% blasts on your blood count, which are not normal values. You need to have these labs followed up by your primary care doctor. If you have any worsening of your condition or any new concerning symptoms, please return immediately to the emergency department for another evaluation.
[2018-08-07 22:50] LABS: Differential Indicated MANUAL DIFF; Hematocrit 28.6 % (37-47); Hemoglobin 8.7 g/dl (12.0-15.0); Mean Corp Hgb Conc 30.4 g/gl (32-36); Mean Corpuscular Hgb 29.5 pg (27.0-32.0); Mean Corpuscular Volume 96.9 fL (81-99); Mean Platelet Vol. 9.7 fl (6.2-12.0); POSITIVE COUNT YES; POSITIVE DIFFERENTIAL NO; POSITIVE MORPHOLOGY YES; Platelet Count 175 K/mm3 (150-450); RBC Distribution Width CV 17.1 % (11.6-14.6); RBC Distribution Width SD 61.1 fl (35.1-43.9); Red Blood Count 2.95 M/mm3 (4.2-5.4); White Blood Count 7.8 K/mm3 (4.4-11.0)
--- NOTE | 2018-08-07 23:06 | CT_ITS ---
HISTORY: NAUSEA,DIARRHEA AND WEAKNESS,PT HAS STAGE 3 PRESSURE ULCER ON SACRUMHX:CHRONIC KIDNEY DZ,A-FIB,TOAN/BSO TECHNIQUE: Helically acquired images were obtained of the abdomen and pelvis without oral or IV contrast. A radiation dose optimization technique was used for this scan. COMPARISON: 08/28/13 CT abdomen and pelvis. 08/04/18 CTA chest. FINDINGS: # of images incl. paperwork: [phone] Small to moderate layering bilateral pleural effusions with adjacent atelectasis partially visible similar to the recent CTA chest. No free air or free fluid. Bony demineralization. Chronic bilateral anterior rib fractures partially visible. Diffuse osteopenia. Sacral decubitus ulcer. No underlying osseous destruction. Prominent presacral edema. Small calcifications anterior to the coccyx. Atherosclerosis. Ectatic but nonaneurysmal abdominal aorta. Mild enlargement of the right lobe of the liver similar to prior. Mineralization/calcification in the peripheral aspect of the hepatic parenchyma most prominent in the right lobe similar to the recent chest CT. No radiopaque gallstones or biliary ductal dilation. Pancreas, adrenal glands, spleen are unremarkable. No hydronephrosis or renal stone. Increased density of the renal cortices bilaterally compatible with retained IV contrast. Ureters and urinary bladder are unremarkable. Status post hysterectomy. No suspicious adnexal mass. Sigmoid colon diverticulosis, no diverticulitis. Normal appendix. Noninflamed transverse duodenal diverticulum. No obstruction or inflammation of the bowel. CT/Abdomen/Pelvis without Cont IMPRESSION: Prominent presacral edema. The lack of enhancement and lack of drainable fluid suggest that this is noninfectious third spacing of fluid; fasciitis/infection secondary to the sacral decubitus ulcer possible but less likely. No abscess, no osseous destruction. Bilateral pleural effusions with adjacent atelectasis again demonstrated. Evidence of renal disease with retained IV contrast presumably from the CTA chest performed 3 days ago. Other chronic findings as above. Individualized dose optimization techniques were used for this CT. at 0020 Reported and signed by: Dima Manzanares MD Electronically Signed: Dima Manzanares, at 0:19 EDT Tel , Service support ,
[2018-08-07 23:07] LABS: ALB/GLOB Ratio 0.5 RATIO (0.9-2.4); AST(SGOT) 33 U/L (15-37); Alanine Aminotransfer ALT/SGPT 24 U/L (13-56); Albumin, Serum 1.7 g/dL (3.2-5.0); Alkaline Phosphatase 301 U/L (45-117); Anion Gap 4 (5-15); BUN 32 mg/dL (7-18); BUN/Creat Ratio 32.5 RATIO (10-20); Calcium,Total 7.8 mg/dL (8.5-10.1); Chloride 105 mmol/L (98-107); Creatinine, Serum 0.98 mg/dL (0.55-1.02); EST Glomerular Filtration Rate 62 mL/min (>60); Est Glom Filt Rate - Afr Amer 75 mL/min (>60); Estimated Creatinine Clearance 55.35 ml/min; Globulin 3.6 g/dL (2.2-4.2); Glucose 93 mg/dL (74-106); Potassium 4.4 mmol/L (3.5-5.1); Protein, Total 5.3 g/dL (6.4-8.2); Sodium Level 142 mmol/L (136-145)
[2018-08-07 23:18] LABS: Basophil 1 % (0-1); Blast 1 % (0-0); Eosinophil 1 % (0-5); Lymphocyte 25 % (19-41); Metamyelocyte 10 % (0-1); Monocyte 3 % (0-10); Neutrophil-Band 11 % (0-5); Neutrophil-Segmented 48 % (47-70); Total Cells Counted 100 (MANUAL DIFF)
[2018-08-07 23:20] LABS: Red Cell Morphology NORM C+C NORMAL (NORM C&C)
[2018-08-07 23:29] VITALS: BP 163/92; PULSE 104; RESP 22; O2SAT 94
--- NOTE | 2018-08-08 00:47 | ED.RN ---
THIS RN CALLED REPORT BACK TO AVENUE AND SPOKE NITIN. NITIN DENIES ANY FURTHER QUESTIONS. PT AWAITING [facility] TO TRANSPORT HER HOME.
[2018-08-08 00:54] LABS: Absolute Neutrophil Count 4.6 X10^3/uL (2.0-7.7)
[2018-08-08 00:55] LABS: Absolute Lymphocyte Count 1.95 X10^3/ul (0.83-4.51)
[2018-08-08 01:02] VITALS: BP 156/83; PULSE 105; RESP 19; O2SAT 96
[2018-08-08 12:11] LABS: Pathologist Review Reviewed
== END 2018-08-08 01:12 | disposition home or self-care (01) ==
PROVIDERS: Emergency Provider Emergency Medicine; Family Provider Family Medicine; PCP Family Medicine
DX: R10.84 Generalized abdominal pain (principal); D64.9 Anemia, unspecified; I80.8 Phlebitis and thrombophlebitis of other sites; Z79.02 Long term (current) use of antithrombotics/antiplatelets; R53.83 Other fatigue; N18.9 Chronic kidney disease, unspecified
CPT/HCPCS: 36415; 71045; 74176; 80048; 80053; 85025; 87493; 99285; A4216

== ENCOUNTER → 2018-08-07 | Outpatient (REF) | payer MEDICAID, SELFPAY ==
[2018-08-05 20:25] VITALS: BMI 43.4
[2018-08-07 08:31] LABS: BUN 33 mg/dL (7-18); EST Glomerular Filtration Rate 61 mL/min (>60); Glucose 75 mg/dL (74-106); Hematocrit 30.2 % (37-47); Hemoglobin 9.3 g/dl (12.0-15.0); Mean Corp Hgb Conc 30.8 g/gl (32-36); Mean Corpuscular Hgb 30.1 pg (27.0-32.0); Mean Corpuscular Volume 97.7 fL (81-99); Platelet Count 210 K/mm3 (150-450); RBC Distribution Width CV 17.3 % (11.6-14.6); RBC Distribution Width SD 61.2 fl (35.1-43.9); Red Blood Count 3.09 M/mm3 (4.2-5.4)
[2018-08-07 08:32] LABS: Anion Gap 4 (5-15); Calcium,Total 8.1 mg/dL (8.5-10.1); Chloride 107 mmol/L (98-107); Est Glom Filt Rate - Afr Amer 74 mL/min (>60); Potassium 4.5 mmol/L (3.5-5.1); Sodium Level 145 mmol/L (136-145)
[2018-08-07 08:36] LABS: Differential Indicated MANUAL DIFF; POSITIVE COUNT YES; POSITIVE DIFFERENTIAL NO; POSITIVE MORPHOLOGY YES
[2018-08-07 09:17] LABS: Basophil 3 % (0-1); Eosinophil 2 % (0-5); Lymphocyte 25 % (19-41); Metamyelocyte 4 % (0-1); Monocyte 3 % (0-10); Myelocyte 3 (0-0); Neutrophil-Segmented 60 % (47-70); Platelet Estimate ADEQUATE (ADEQ); Red Cell Morphology NORM C+C NORMAL (NORM C&C); Total Cells Counted 100 (MANUAL DIFF)
[2018-08-07 09:18] LABS: Absolute Neutrophil Count 5.4 X10^3/uL (2.0-7.7)
[2018-08-08 12:08] LABS: Pathologist Review Reviewed
== END | disposition home or self-care (01) ==
LOC: OLS.AVED 05:00
PROVIDERS: Visit Provider Family Medicine
DX: D64.9 Anemia, unspecified (principal); R53.83 Other fatigue; N18.9 Chronic kidney disease, unspecified
CPT/HCPCS: 36415; 80048; 85025

== ENCOUNTER 2018-08-10 19:17 | Emergency (ER) | payer MEDICAID, SELFPAY ==
[2018-08-10 19:18] VITALS: BP 144/66; PULSE 103; RESP 20; TEMP 36.7; O2SAT 87; BMI 40.5
--- NOTE | 2018-08-10 19:58 | EKG12_ITS ---
Test Reason : EDEMA Blood Pressure : / mmHG Vent. Rate : 097 BPM Atrial Rate : 097 BPM P-R Int : 164 ms QRS Dur : 080 ms QT Int : 350 ms P-R-T Axes : 047 031 049 degrees QTc Int : 444 ms Normal sinus rhythm Low voltage QRS ST & T wave abnormality, consider anterior ischemia Abnormal ECG Confirmed by SAMANTHA CHRISTIAN, KORI ([id number]), newspaper or periodical editor TAMMIE WHEELER ([id number]) on 08/14/2018 9:01:02 AM Referred By: SHIRLEY Confirmed By:KORI SINGH MD
--- NOTE | 2018-08-10 19:58 | RAD_ITS ---
STUDY: X-RAY CHEST REASON FOR EXAM: Female, 58 years old. Chest pain TECHNIQUE: Single frontal view of the chest. COMPARISON: 08/07/2018 FINDINGS: The lungs are clear and expanded. There is no demonstrated pleural abnormality. Normal size heart. Normal mediastinum and mary. Normal visualized pulmonary arteries. Normal visualized aortic arch and descending thoracic aorta. Normal visualized thoracic spine. Right shoulder calcific tendinitis. Stable right rib fractures. There is no demonstrated abnormality of the visualized soft tissue structures of the upper abdomen. RAD/Chest 1 View (Portable) IMPRESSION: No acute pulmonary findings. Electronically Signed: Jose Barnes MD at 20:25 EDT Tel , Service support ,
--- NOTE | 2018-08-10 20:02 | ED.DCSUM_ITS ---
- ER Visit Summary Date of Service: 08/10/18 Chief Complaint: [] Whole body edema at rehab center bed confined History of Present Illness: The patient is a 58 F [] patient is a poor historian she indicates that in May she developed what sounds like a debilitating pneumonia type process it resulted in her going to a rehab nursing center so she can regain her strength indicates well-being that she basically is bed confined the only rehab she is able to do is in the bed where it text, and move her arms and legs in the bed she does not walk there was some concern about increasing edema today and she was sent to the emergency department, the patient does complain of a slight sore throat no difficulty swallowing breathing or eating and she is able take her meds today for difficulty, she does appear to have whole body edema of the arms and legs she says it might be slightly worse than her baseline. She denies history of DVT or PE she denies chest pain or shortness of breath just the whole body edema Physical Examination: [] Vital signs are within normal range General, no distress resting comfortably a large woman her BMI is about 41 HEENT is generally unremarkable her throat is unremarkable her airways intact her swallowing mechanism speech mechanism is normal she does have a large area of redundant skin under her neck this is soft and nontender her neck has full range of motion The neck is supple no adenopathy Cardiovascular, regular rate and rhythm Lungs, clear bilateral, with diminished breath sounds at the bases Abdomen, soft nontender Extremities, no clubbing cyanosis, he does have edema to all 4 of her extremities the right upper extremity the left upper extremity and the lower extremities 3+ to the right upper extremity and 2+ to the rest of the extremities, she has full range of motion of the upper extremities without pain she can basically dorsi and plantarflex at the feet bilaterally she cannot raise her feet off the bed there is no signs of infection or DVT she assures me that 2 degree this is really baseline Neurologic, awake alert answering questions appropriately moving all 4 extremities Test Results: [] Emergency Department Course and Treatment: [] Concern for possible worsening of whole body edema clinically patient looks well she is eating and drinking her bowel and bladder habits are unremarkable at this time screening labs are obtained she wants to eat she is hungry we will start with soft foods or ice cream She is chest x-ray is unremarkable, see those reports her screening labs are also otherwise unremarkable EKG shows a sinus rhythm nothing acute she is been able to eat here without difficulty at this time I believe is safe to discharge her home I believe the edema dates that she is suffering from his life based on her body habitus and body positioning and the fact that she simply does not get out of bed we have explained this to the nursing center and they will hopefully find a way to adjust her physical therapy regimen return for change in symptoms otherwise follow-up with physicians at the Center Treatment Plan: [] Disposition: [] Home stable Impression: [] whole Body edema appears for the most part chronic This note was generated with [employer] software. It may contain incorrect words, spelling, and punctuation that were not noted in review of the chart prior to signing ED Disposition - Plan for ED Patient: Referrals: Jose Kaplan MD [Primary Care Provider] -
[2018-08-10 20:47] LABS: Hematocrit 29.4 % (37-47); Mean Corp Hgb Conc 30.6 g/gl (32-36); Mean Corpuscular Hgb 29.7 pg (27.0-32.0); Mean Platelet Vol. 9.9 fl (6.2-12.0); POSITIVE DIFFERENTIAL NO; Platelet Count 205 K/mm3 (150-450); RBC Distribution Width CV 16.6 % (11.6-14.6); RBC Distribution Width SD 59.1 fl (35.1-43.9); Red Blood Count 3.03 M/mm3 (4.2-5.4); White Blood Count 9.5 K/mm3 (4.4-11.0)
[2018-08-10 20:48] LABS: Differential Indicated MANUAL DIFF; POSITIVE COUNT YES; POSITIVE MORPHOLOGY YES
[2018-08-10 20:59] LABS: Anion Gap 5 (5-15); BUN 29 mg/dL (7-18); BUN/Creat Ratio 29.1 RATIO (10-20); Calcium,Total 7.9 mg/dL (8.5-10.1); Chloride 105 mmol/L (98-107); EST Glomerular Filtration Rate 61 mL/min (>60); Est Glom Filt Rate - Afr Amer 74 mL/min (>60); Estimated Creatinine Clearance 54.24 ml/min; Glucose 102 mg/dL (74-106); Potassium 4.8 mmol/L (3.5-5.1); Sodium Level 143 mmol/L (136-145)
[2018-08-10 21:01] LABS: Eosinophil 3 % (0-5); Lymphocyte 32 % (19-41); Metamyelocyte 1 % (0-1); Monocyte 10 % (0-10); Neutrophil-Segmented 54 % (47-70); Total Cells Counted 100 (MANUAL DIFF)
[2018-08-10 21:02] LABS: Red Cell Morphology NORM C+C NORMAL (NORM C&C)
[2018-08-10 21:03] LABS: Platelet Estimate ADEQUATE (ADEQ); Platelet Morphology LARGE
--- NOTE | 2018-08-10 21:30 | ED.DEP ---
ED Disposition - Plan for ED Patient: Instructions: ED Leg Swelling Bilateral, ED Lymphedema Referrals: Jose Kaplan MD [Primary Care Provider] -
[2018-08-10 22:19] VITALS: BP 143/75; PULSE 98; RESP 18
[2018-08-10 23:57] VITALS: BP 154/80; PULSE 97; RESP 18; O2SAT 97
[2018-08-12 13:16] LABS: Pathologist Review Reviewed
== END 2018-08-10 23:58 | disposition home or self-care (01) ==
LOC: ED 20:15
PROVIDERS: Emergency Provider Emergency Medicine; Family Provider Family Medicine; PCP Family Medicine
DX: R60.1 Generalized edema (principal); Z74.01 Bed confinement status
CPT/HCPCS: 71045; 80048; 83880; 84484; 85025; 93005; 99285; J7030; A4216

== ENCOUNTER 2018-08-13 21:04 | Emergency (ER) | payer MEDICAID, SELFPAY ==
[2018-08-13 21:05] VITALS: BP 151/72; PULSE 102; RESP 22; TEMP 37; O2SAT 93; BMI 42.9
--- NOTE | 2018-08-13 22:03 | RAD_ITS ---
STUDY: X-RAY CHEST REASON FOR EXAM: Female, 58 years old. Flu like TECHNIQUE: Single frontal view COMPARISON: August 10, 2018. FINDINGS: The lungs are not fully expanded. There is no demonstrated pleural abnormality. Normal size heart. Normal mediastinum and mary. Normal visualized pulmonary arteries. Normal visualized aortic arch and descending thoracic aorta. Degenerative changes of the thoracic spine. Possible old right rib fractures. Possible calcific tendinopathy of the left shoulder. There is no demonstrated abnormality of the visualized soft tissue structures of the upper abdomen. RAD/Chest 1 View (Portable) IMPRESSION: Normal x-ray examination of the chest. Electronically Signed: Jeremías Hoffmann DO at 22:23 EDT Tel [phone], Service support ,
[2018-08-13 22:05] VITALS: BP 136/64; PULSE 98; RESP 20; TEMP 37; O2SAT 93
[2018-08-13 22:12] LABS: Mucous, Urine 0 SEEN /hpf (<or=2+)
[2018-08-13 22:15] LABS: Color, Urine Yellow (Yellow); Glucose, Dipstick Normal (Normal); Ketone-Dipstick Negative (Negative); Leukocyte Esterase-Dipstick 100 /ul (Negative); Nitrite-Dipstick Positive (Negative); Occult Blood-Urine 10 /ul (Negative); Protein-Dipstick Negative (Negative); Specific Gravity, Urine 1.015 (1.002-1.030); Urine Bilirubin Dipstick Negative (Negative); Urine Clarity Cloudy (Clear); Urine Urobilinogen Normal (Normal)
[2018-08-13 22:20] LABS: Bacteria 2+ /hpf (None Seen); Red Blood Cells-Urine 0-5 SEEN /hpf (0-5); Squamous Epithelial Cells - UA 10-25 SEEN /hpf (5-10); White Blood Cells 25-50 SEEN /hpf (0-5)
[2018-08-13 22:57] LABS: Hematocrit 28.8 % (37-47); Hemoglobin 8.8 g/dl (12.0-15.0); Mean Corp Hgb Conc 30.6 g/gl (32-36); Mean Corpuscular Hgb 29.6 pg (27.0-32.0); Mean Platelet Vol. 10.3 fl (6.2-12.0); POSITIVE COUNT NO; POSITIVE DIFFERENTIAL NO; POSITIVE MORPHOLOGY YES; Platelet Count 235 K/mm3 (150-450); Red Blood Count 2.97 M/mm3 (4.2-5.4); White Blood Count 9.7 K/mm3 (4.4-11.0)
[2018-08-13 23:25] LABS: Differential Indicated MANUAL DIFF
--- NOTE | 2018-08-13 23:25 | ED.DCSUM_ITS ---
- ER Visit Summary Date of Service: 08/13/18 Chief Complaint: Body aches History of Present Illness: The patient is a 58 F presenting with body aches and not feeling well. She states this started yesterday. She had subjective fever. She has had nausea with no vomiting. She denies diarrhea. She complains of burning with urination. Complains of sore throat. Denies chest pain or shortness of breath. Denies abdominal pain. Denies other complaints. Physical Examination: Vitals are stable. Patient is afebrile. Alert no acute distress. HEENT exam pharynx is normal with no exudate. Uvula is midline Neck is supple. No meningismus Lungs are clear and equal bilaterally. Heart is regular and tachycardic Abdomen is soft nontender nondistended. No guarding or rebound Extremities are unremarkable. Skin is warm and dry. No focal neurologic deficit. Remainder of exam is unremarkable. Emergency Department Course and Treatment: Influenza negative. Rapid strep negative. CBC is normal except hemoglobin 8.8. This is at her baseline. Urinalysis shows 25-50 white blood cells, urine culture was sent. Chemistries unremarkable. Chest x-ray shows no acute process. On reevaluation patient is resting comfortably. She is given Macrobid. Advised to follow-up with her primary care physician. Advised return to ED if worsening complaints. Disposition: Discharge home Impression: UTI This note was generated with [employer] dictation software. It may contain incorrect words, spelling, and punctuation that were not noted in review of the chart prior to signing ED Disposition - Plan for ED Patient: Instructions: ED UTI Cystitis Female Prescriptions: Nitrofurantoin Macrocrystals [Macrobid] 100 mg PO Q12 #14 capsule Referrals: Jose Kaplan MD [Primary Care Provider] -
[2018-08-13 23:28] LABS: Anion Gap 4 (5-15); BUN 30 mg/dL (7-18); BUN/Creat Ratio 33.1 RATIO (10-20); Calcium,Total 7.8 mg/dL (8.5-10.1); Chloride 104 mmol/L (98-107); EST Glomerular Filtration Rate 68 mL/min (>60); Est Glom Filt Rate - Afr Amer 83 mL/min (>60); Estimated Creatinine Clearance 60.27 ml/min; Glucose 80 mg/dL (74-106); Potassium 4.4 mmol/L (3.5-5.1); Sodium Level 141 mmol/L (136-145)
[2018-08-13 23:31] LABS: Total Cells Counted 100 (MANUAL DIFF)
[2018-08-13 23:32] LABS: Anisocytosis 1+; Differential Comment SCANNED; Eosinophil 1 % (0-5); Lymphocyte 34 % (19-41); Metamyelocyte 1 % (0-1); Monocyte 6 % (0-10); Myelocyte 3 (0-0); Neutrophil-Segmented 55 % (47-70); Platelet Estimate ADEQUATE (ADEQ)
[2018-08-13 23:35] LABS: Absolute Neutrophil Count 5.3 X10^3/uL (2.0-7.7); Neutrophil # 5.34 X10^3/uL (2.7-7.7)
--- NOTE | 2018-08-13 23:43 | ED.DEP ---
ED Disposition - Plan for ED Patient: Instructions: ED UTI Cystitis Female Prescriptions: Nitrofurantoin Macrocrystals [Macrobid] 100 mg PO Q12 #14 capsule Referrals: Jose Kaplan MD [Primary Care Provider] -
[2018-08-14] MEDS: Nitrofurantoin Macrocrystals 100 MG Capsule PO (00:15)
[2018-08-14 00:16] VITALS: BP 132/78; PULSE 76; RESP 16; O2SAT 95
--- NOTE | 2018-08-15 12:45 | ED.RN ---
DR SIERRA CHANGED MEDS TO DOXYCYCLINE 100MG BID FOR 10 DAYS. [facility]LIN AT THE [facility] AWARE AND WILL CHANGE ORDER
[2018-08-15 14:02] LABS: Pathologist Review Reviewed
== END 2018-08-14 00:17 | disposition home or self-care (01) ==
LOC: ED 22:13
PROVIDERS: Emergency Provider Emergency Medicine; Family Provider Family Medicine; PCP Family Medicine
DX: N39.0 Urinary tract infection, site not specified (principal)
CPT/HCPCS: 71045; 80048; 81001; 85025; 87077; 87086; 87088; 87186; 87804; 87880; 99285

== ENCOUNTER → 2018-08-20 05:00 | Outpatient (REF) | payer MEDICAID, SELFPAY ==
[2018-08-13 21:05] VITALS: BMI 42.9
[2018-08-20 08:52] LABS: Differential Indicated MANUAL DIFF; Hematocrit 27.3 % (37-47); Hemoglobin 8.3 g/dl (12.0-15.0); Mean Corp Hgb Conc 30.4 g/gl (32-36); Mean Corpuscular Hgb 29.3 pg (27.0-32.0); Mean Corpuscular Volume 96.5 fL (81-99); Mean Platelet Vol. 9.8 fl (6.2-12.0); POSITIVE COUNT YES; POSITIVE DIFFERENTIAL NO; POSITIVE MORPHOLOGY YES; Platelet Count 223 K/mm3 (150-450); RBC Distribution Width CV 16.1 % (11.6-14.6); RBC Distribution Width SD 56.9 fl (35.1-43.9); Red Blood Count 2.83 M/mm3 (4.2-5.4); White Blood Count 9.7 K/mm3 (4.4-11.0)
[2018-08-20 09:07] LABS: Anion Gap 1 (5-15); BUN 23 mg/dL (7-18); BUN/Creat Ratio 31.2 RATIO (10-20); Calcium,Total 7.9 mg/dL (8.5-10.1); Chloride 104 mmol/L (98-107); Creatinine, Serum 0.74 mg/dL (0.55-1.02); EST Glomerular Filtration Rate 87 mL/min (>60); Est Glom Filt Rate - Afr Amer 105 mL/min (>60); Glucose 79 mg/dL (74-106); Potassium 3.9 mmol/L (3.5-5.1); Sodium Level 141 mmol/L (136-145)
[2018-08-20 10:21] LABS: Eosinophil 2 % (0-5); Lymphocyte 19 % (19-41); Metamyelocyte 1 % (0-1); Monocyte 7 % (0-10); Myelocyte 4 (0-0); Neutrophil-Band 3 % (0-5); Neutrophil-Segmented 63 % (47-70); Promyelocyte 1 (0-0); Red Cell Morphology NORM C+C NORMAL (NORM C&C); Total Cells Counted 100 (MANUAL DIFF)
[2018-08-20 10:22] LABS: Platelet Estimate ADEQUATE (ADEQ)
[2018-08-20 14:49] LABS: Pathologist Review Reviewed
[2018-08-21 08:55] LABS: Absolute Lymphocyte Count 1.84 X10^3/ul (0.83-4.51); Absolute Neutrophil Count 6.4 X10^3/uL (2.0-7.7)
== END ==
LOC: OLS.AVED 05:00
PROVIDERS: Visit Provider Family Medicine
DX: D64.9 Anemia, unspecified (principal)
CPT/HCPCS: 36415; 80048; 85025

== ENCOUNTER 2018-08-22 18:58 | Emergency (ER) | payer MEDICAID, SELFPAY ==
[2018-08-22 19:00] VITALS: BP 131/74; PULSE 96; RESP 20; TEMP 36.8; O2SAT 90; BMI 41.5
[2018-08-22 19:04] VITALS: RESP 20
--- NOTE | 2018-08-22 19:17 | EKG12_ITS ---
Test Reason : Blood Pressure : / mmHG Vent. Rate : 093 BPM Atrial Rate : 093 BPM P-R Int : 164 ms QRS Dur : 082 ms QT Int : 354 ms P-R-T Axes : 053 029 040 degrees QTc Int : 440 ms Normal sinus rhythm Low voltage QRS Borderline ECG Confirmed by PETER CHRISTIAN, LUIS ([id number]), scientific editor ALLISON ROSE ([id number]) on 08/26/2018 11:30:42 AM Referred By: TL Confirmed By:LUIS GREEN MD
--- NOTE | 2018-08-22 19:17 | RAD_ITS ---
STUDY: X-RAY CHEST REASON FOR EXAM: Female, 58 years old. GENERAL ILLNESS, CHEST PAIN TECHNIQUE: Single AP portable view of the chest. COMPARISON: 08/13/2018. FINDINGS: No significant change. Persistent density across the lower right lung field consistent with platelike atelectasis. No infiltrates. No definite effusions. Normal size heart. Normal mediastinum and mary. Normal visualized pulmonary arteries. There is atherosclerotic tortuosity of the aortic arch and descending thoracic aorta. Normal visualized thoracic spine. There is degenerative osteoarthritis of the bilateral shoulders. There is no demonstrated abnormality of the visualized soft tissue structures of the upper abdomen. RAD/Chest 1 View (Portable) IMPRESSION: No definite change or significant abnormality. Electronically Signed: Nish Aggarwal MD at 19:35 EDT , Service support ,
--- NOTE | 2018-08-22 19:21 | CT_ITS ---
STUDY: CT ABDOMEN AND PELVIS WITHOUT CONTRAST REASON FOR EXAM: Female, 58 years old. Pain. Dialysis patient. RADIATION DOSAGE (If Supplied By Facility): CTDIvol = ( 22.78 ) mGy, DLP = ( 1246.63 ) mGycm TECHNIQUE: Transaxial images were obtained from the dome of the diaphragm to the symphysis pubis without oral contrast, and without intravenous contrast. Sagittal and coronal images were reconstructed. Individualized dose optimization techniques were used for this CT. COMPARISON: 08/07/2018. FINDINGS: In the lung bases, stable small bilateral pleural effusions worse on the right with significant bilateral lower lobe atelectasis. Stable bilateral subacute/chronic rib fractures. Stable appearance of the liver which is normal shape and generally fatty infiltrated but with widespread calcifications in all segments most likely related to the long history of renal failure. No masses. Relatively marked hepatomegaly. Gallbladder, pancreas, spleen and adrenal glands are unremarkable. No acute abnormality of the kidneys. Normal size. No hydronephrosis. No stones. No renal masses. Evaluation of the GI tract is limited without oral contrast. Grossly normal stomach. No dilated loops of small bowel or evidence for small bowel obstruction. Normal caliber large bowel. Cannot exclude segments of bowel wall thickening, enteritis or colitis. Marked fecal retention or fecal impaction in the rectum possibly with secondary proctosigmoiditis. Again seen is soft tissue density anterior to the sacrum most likely fibrosis. Inflammatory process or even neoplasm can have the same appearance. Early calcified aorta with no aneurysm. No retroperitoneal adenopathy seen. Grossly normal bladder. No free fluid. There is prominent skin and soft tissue thickening over the lower sacrum and coccyx with a probable focal skin wound approximately 2 cm in greatest dimension, correlate with physical exam. Marked atrophy of the pelvic girdle, upper thigh, and gluteal muscles bilaterally. Diffuse degenerative changes throughout the skeletal structures. CT/Abdomen/Pelvis without Cont IMPRESSION: Stable bilateral small pleural effusions and lower lobe atelectasis. Stable fatty liver with hepatomegaly and mild diffuse parenchymal calcifications. Fecal retention or impaction in the rectosigmoid with possible proctosigmoiditis. Prominent soft tissue density in the presacral space most likely fibrosis but cannot exclude inflammatory process or neoplasm. Electronically Signed: Nish Aggarwal MD at 21:14 EDT , Service support ,
--- NOTE | 2018-08-22 19:24 | ED.DCSUM_ITS ---
- ER Visit Summary Date of Service: 08/22/18 Chief Complaint: [] Generalized abdominal burning sensation started yesterday History of Present Illness: The patient is a 58 F [] sense of generalized abdominal burning sensation that began yesterday she has had no vomiting no fever normal urinary habits, she has multiple medical problems including edema morbid obesity she does not walk much because her legs do not work and they are full of edema per her history and she has trouble walking she is primarily bed confined, she has been able to eat her urinary bowel habits have been unremarkable, She denies history of abdominal surgery or any abdominal or GI elements of any kind no fever no cough, no chest pain no history of any CAD MT PE or DVT liver kidney problems She reports did eat today sometimes swallowing is difficult but she was able to eat without difficulty and eating does not exacerbate her symptoms Physical Examination: [Vital signs are within normal range afebrile see those reports General, no distress resting comfortably HEENT is generally unremarkable The neck is supple no adenopathy Cardiovascular, regular rate and rhythm Lungs, clear bilateral Abdomen, soft nontender, the abdomen shows no areas of tenderness to deep aggressive palpation, she takes her hand she draws in the big ewiiaapaayp around her abdomen complaining of burning in a generalized fashion nothing specific Rectal exam shows soft brown stool nontender Extremities, no clubbing cyanosis or she has generalized edema to the upper lower extremity she is able to move her lower extremities slightly flexing at the knees and the dorsi and plantarflexion of the feet, this edema is unchanged Neurologic, awake alert answering questions appropriately moving all 4 extremities ] Test Results: [] Emergency Department Course and Treatment: [] Screening labs are generally unremarkable hemoglobin stable at 8.6, CL those reports, the CT scan shows really nothing acute except what appears to be quite a bit of constipation the radiologist notes describe a constipation at the level of the sigmoid the patient reports he states she is having very soft normal bowel movements she has no abdominal pain to palpation to this area no signs of any type of colitis her rectal exam shows soft brown stool without any acute gross abnormalities Symptoms are totally resolved she is nontender abdomen to begin with and she remains nontender comfortable discharge home she will be instructed in her staff to use MiraLAX high-fiber food follow-up with GI return for change in symptoms Treatment Plan: [] Disposition: [] Stable home Impression: [] Abdominal pain resolved, constipation on CT This note was generated with Dragon dictation software. It may contain incorrect words, spelling, and punctuation that were not noted in review of the chart prior to signing ED Disposition - Plan for ED Patient: Referrals: Jose Kaplan MD [Primary Care Provider] -
[2018-08-22 19:48] LABS: Differential Indicated MANUAL DIFF; Hematocrit 28.1 % (37-47); Hemoglobin 8.6 g/dl (12.0-15.0); Mean Corp Hgb Conc 30.6 g/gl (32-36); Mean Corpuscular Hgb 29.2 pg (27.0-32.0); Mean Corpuscular Volume 95.3 fL (81-99); Mean Platelet Vol. 9.9 fl (6.2-12.0); POSITIVE COUNT YES; POSITIVE DIFFERENTIAL NO; POSITIVE MORPHOLOGY YES; Platelet Count 215 K/mm3 (150-450); RBC Distribution Width CV 16.1 % (11.6-14.6); RBC Distribution Width SD 56.4 fl (35.1-43.9); Red Blood Count 2.95 M/mm3 (4.2-5.4); White Blood Count 9.3 K/mm3 (4.4-11.0)
[2018-08-22 19:49] VITALS: O2SAT 98
[2018-08-22] MEDS: 0.9% Normal Saline 1,000 ML 150 ML IV (19:49)
[2018-08-22] MEDS: Ondansetron 4 MG/2 ML Vial IV (19:51)
[2018-08-22] MEDS: Mag Hydrox/Al Hydrox/Simeth 30 ML UDC PO (19:52)
[2018-08-22] MEDS: morphine 8 MG/ML Syringe IV (19:53)
[2018-08-22 20:05] LABS: AST(SGOT) 35 U/L (15-37); Alanine Aminotransfer ALT/SGPT 22 U/L (13-56); Albumin, Serum 1.6 g/dL (3.2-5.0); Alkaline Phosphatase 229 U/L (45-117); Anion Gap 4 (5-15); BUN 23 mg/dL (7-18); BUN/Creat Ratio 25.7 RATIO (10-20); Bilirubin, Direct 0.15 mg/dL (0.00-0.30); Calcium,Total 7.7 mg/dL (8.5-10.1); Chloride 103 mmol/L (98-107); EST Glomerular Filtration Rate 69 mL/min (>60); Est Glom Filt Rate - Afr Amer 84 mL/min (>60); Estimated Creatinine Clearance 60.27 ml/min; Globulin 4.2 g/dL (2.2-4.2); Glucose 109 mg/dL (74-106); Lipase 155 U/L (73-393); Protein, Total 5.8 g/dL (6.4-8.2); Sodium Level 140 mmol/L (136-145)
[2018-08-22 20:21] LABS: BNP,B-Type NATRIURETIC PEPTIDE 39.4 pg/mL (0-100)
[2018-08-22 20:39] LABS: Basophil 1 % (0-1); Eosinophil 6 % (0-5); Lymphocyte 25 % (19-41); Monocyte 3 % (0-10); Myelocyte 4 (0-0); Neutrophil-Band 2 % (0-5); Neutrophil-Segmented 59 % (47-70); Total Cells Counted 100 (MANUAL DIFF)
[2018-08-22 20:49] LABS: Absolute Lymphocyte Count 2.32 X10^3/ul (0.83-4.51); Absolute Neutrophil Count 5.7 X10^3/uL (2.0-7.7)
[2018-08-22 21:03] LABS: Bacteria 0 SEEN /hpf (None Seen); Mucous, Urine 0 SEEN /hpf (<or=2+); Red Blood Cells-Urine 0 SEEN /hpf (0-5); White Blood Cells 0 SEEN /hpf (0-5)
[2018-08-22 21:18] LABS: Color, Urine Yellow (Yellow); Glucose, Dipstick Normal (Normal); Ketone-Dipstick Negative (Negative); Leukocyte Esterase-Dipstick Negative /ul (Negative); Nitrite-Dipstick Negative (Negative); Occult Blood-Urine Negative /ul (Negative); Protein-Dipstick Negative (Negative); Urine Bilirubin Dipstick Negative (Negative); Urine Clarity Clear (Clear); Urine Urobilinogen Normal (Normal)
[2018-08-22 21:31] LABS: Squamous Epithelial Cells - UA 0-5 SEEN /hpf (5-10)
--- NOTE | 2018-08-22 22:10 | ED.DEP ---
ED Disposition - Plan for ED Patient: Referrals: Jose Kaplan MD [Primary Care Provider] - Additional Instructions: Please use MiraLAX 3 or 4 times a day, follow-up with GI for further management high-fiber food
[2018-08-22 22:28] VITALS: BP 141/79; PULSE 93; RESP 19; O2SAT 100
[2018-08-23 14:12] LABS: Pathologist Review Reviewed
== END 2018-08-22 22:42 | disposition home or self-care (01) ==
LOC: ED 19:32
PROVIDERS: Emergency Provider Emergency Medicine; Family Provider Family Medicine; PCP Family Medicine
DX: K59.00 Constipation, unspecified (principal); R10.84 Generalized abdominal pain; E66.01 Morbid (severe) obesity due to excess calories
CPT/HCPCS: 71045; 74176; 80048; 80076; 81001; 83690; 83880; 84484; 85025; 93005; 96361; 96374; 96375; 99285; J7030; A4216; J2405

== ENCOUNTER → 2018-08-23 05:00 | Outpatient (REF) | payer MEDICAID, SELFPAY ==
[2018-08-22 19:00] VITALS: BMI 41.5
[2018-08-23 08:27] LABS: Hematocrit 28.2 % (37-47); Hemoglobin 8.5 g/dl (12.0-15.0)
== END ==
LOC: OLS.AVED 05:00
PROVIDERS: Visit Provider Family Medicine
DX: D64.9 Anemia, unspecified (principal)
CPT/HCPCS: 36415; 85014; 85018

== ENCOUNTER 2018-08-26 18:31 | Emergency (ER) | payer MEDICAID, SELFPAY ==
[2018-08-26 18:32] VITALS: BP 133/86; PULSE 100; RESP 20; TEMP 36.8; O2SAT 96; BMI 41.6
--- NOTE | 2018-08-26 18:57 | CT_ITS ---
STUDY: CT ABDOMEN AND PELVIS WITHOUT CONTRAST REASON FOR EXAM: Female, 58 years old. Pain and cramping for 2 days constipation RADIATION DOSAGE (If Supplied By Facility): CTDIvol = ( 18.17 ) mGy, DLP = ( 989.63 ) mGycm TECHNIQUE: Transaxial images were obtained from the dome of the diaphragm to the symphysis pubis without oral contrast, and without intravenous contrast. Sagittal and coronal images were reconstructed. Individualized dose optimization techniques were used for this CT. COMPARISON: August 22, 2018 CT scan abdomen and pelvis FINDINGS: There are persistent bilateral [id number] effusions with lower lobe atelectasis and/or consolidation. No visualize coronary calcifications. There is persistent inhomogeneous appearance of the liver with peripheral and delayed hyper densities and/or calcifications which are similar to more recent study August 07, 2018 but not seen on prior study August 28, 2013. Normal gallbladder and extrahepatic biliary system. Normal spleen. Normal pancreas. Normal bilateral adrenal glands. Normal right kidney. Normal left kidney. Normal visualized stomach. Normal small intestine. Is mild to moderate stool in the colon. There is diverticulosis without diverticulitis. There is severe fecal impaction extending from the proximal sigmoid to the rectum. There is non-visualization of the appendix. There is diffuse atherosclerotic calcification of the abdominal aorta, without a demonstrated aneurysm. Normal inferior vena cava. A few nonspecific peritoneal lymph nodes. Normal urinary bladder. There is absence of the uterus consistent with a prior hysterectomy. There is body wall edema. There is in particular bilateral flank edema. There is multilevel spondylosis. At L4 there is 10% loss of height of the vertebral body. At L3-L4 L4-L5 there is a broad disc osteophyte severe neural foramina narrowing spur central stenosis. There is chronic loss of height in the thoracic vertebral bodies. CT/Abdomen/Pelvis without Cont IMPRESSION: Persistent severe sigmoid and rectal stool burden compatible with fecal impaction. Diverticulosis no evidence of diverticulitis. There is a pattern of peripheral punctate density within the liver which is unusual and not commonly seen in granulomatous disease. This may be related to metastatic calcifications are suspected potentially a prior procedure. Potentially an unusual infiltrative biliary metastatic process could have this appearance. Recommend correlation with hepatic laboratory values. Persistent small to moderate bilateral effusions lower lobe consolidation. Coronary artery calcification Body wall edema. Degenerative changes of the thoracolumbar spine. Electronically Signed: Carline Nieto MD at 20:04 EDT Tel , Service support ,
--- NOTE | 2018-08-26 19:19 | ED.DCSUM_ITS ---
- ER Visit Summary Date of Service: 08/26/18 Chief Complaint: Abdominal pain, constipation History of Present Illness: The patient is a 58 F reports a 2-day history of abdominal pain. She was actually seen here in the emergency room on the with complaint of abdominal pain. Constipation was noted on CT at that time. Was recommended she take MiraLAX and patient states she did not take a dose until this morning. She now reports having pain when she has a bowel movement over the past 2 days. She states it feels like she is passing a porcupine. Today she complains of pain across her lower abdomen as well. Physical Examination: Vital signs unremarkable. Patient is in no acute distress and is nontoxic appearing. Heart is regular rate and rhythm. Lung sounds grossly clear. Abdomen is soft with moderate lower abdominal tenderness. She has voluntary guarding on exam. Hypoactive but present bowel sounds are noted. Test Results: CBC significant for hemoglobin of 8.7 which is stable. Chemistry studies normal. CT flank shows persistent sigmoid and rectal stool burden. No free air. Emergency Department Course and Treatment: Soapsuds enema was performed with good results. On repeat evaluation patient does report improvement. I do see on her med list from the [facility] she is written for Senokot as needed. I will make documentation that she needs to will be sure to receive this daily. Treatment Plan: [] Disposition: Discharge Impression: Constipation, improved This note was generated with [employer] dictation software. It may contain incorrect words, spelling, and punctuation that were not noted in review of the chart prior to signing ED Disposition - Plan for ED Patient: Disposition: Home or Assisted Living Instructions: ED Constipation Referrals: Jose Kaplan MD [NON-STAFF] - Additional Instructions: *PLEASE BE SURE TO PROVIDE PRN SENOKOT ORDER TO PATIENT DAILY FOR THE NEXT 4 DAYS.
[2018-08-26 19:29] VITALS: BP 135/72; PULSE 100; RESP 21; O2SAT 95
[2018-08-26 19:33] LABS: Absolute Lymphocyte Count 3.11 X10^3/ul (0.83-4.51); Absolute Neutrophil Count 6.3 X10^3/uL (2.0-7.7); Basophil# 0.07 X10^3/uL; Basophil% 0.6 % (0-1); Eosinophils% 1.8 % (0-5); Hematocrit 27.9 % (37-47); Hemoglobin 8.7 g/dl (12.0-15.0); Lymphocyte # 3.11 X10^3/ul (4.0); Lymphocyte % 28.7 % (19-41); Mean Corp Hgb Conc 31.2 g/gl (32-36); Mean Corpuscular Hgb 29.4 pg (27.0-32.0); Mean Corpuscular Volume 94.3 fL (81-99); Mean Platelet Vol. 9.7 fl (6.2-12.0); Monocyte# 1.01 X10^3/uL; Monocyte% 9.3 % (0-10); Neutrophil # 6.32 X10^3/uL (2.7-7.7); Neutrophil % 58.3 % (47-70); Platelet Count 226 K/mm3 (150-450); RBC Distribution Width SD 54.3 fl (35.1-43.9); Red Blood Count 2.96 M/mm3 (4.2-5.4); White Blood Count 10.9 K/mm3 (4.4-11.0)
[2018-08-26 19:36] LABS: POSITIVE COUNT NO; POSITIVE DIFFERENTIAL NO; POSITIVE MORPHOLOGY NO
[2018-08-26 19:41] LABS: Anion Gap 2 (5-15); BUN 22 mg/dL (7-18); BUN/Creat Ratio 28.2 RATIO (10-20); Chloride 102 mmol/L (98-107); Creatinine, Serum 0.78 mg/dL (0.55-1.02); EST Glomerular Filtration Rate 81 mL/min (>60); Est Glom Filt Rate - Afr Amer 98 mL/min (>60); Estimated Creatinine Clearance 69.54 ml/min; Glucose 92 mg/dL (74-106); Potassium 3.8 mmol/L (3.5-5.1); Sodium Level 139 mmol/L (136-145)
[2018-08-26 21:29] VITALS: BP 136/95; PULSE 99; RESP 25; O2SAT 97
[2018-08-26 23:26] VITALS: BP 147/88; PULSE 96; RESP 22; O2SAT 95
--- NOTE | 2018-08-26 23:29 | ED.RN ---
report called back to the [facility]. transport here for pt.
== END 2018-08-26 23:30 | disposition home or self-care (01) ==
PROVIDERS: Emergency Provider Emergency Medicine; Family Provider Family Medicine; PCP Family Medicine
DX: K59.00 Constipation, unspecified (principal); E66.9 Obesity, unspecified; F41.9 Anxiety disorder, unspecified; F32.9 Major depressive disorder, single episode, unspecified; I48.91 Unspecified atrial fibrillation; Z87.891 Personal history of nicotine dependence; Z79.02 Long term (current) use of antithrombotics/antiplatelets; Z79.899 Other long term (current) drug therapy
CPT/HCPCS: 74176; 80048; 85025; 99285; A4216

== ENCOUNTER → 2018-08-27 05:00 | Outpatient (REF) | payer MEDICAID, SELFPAY ==
[2018-08-26 18:32] VITALS: BMI 41.6
[2018-08-27 08:23] LABS: Absolute Lymphocyte Count 2.87 X10^3/ul (0.83-4.51); Absolute Neutrophil Count 5.5 X10^3/uL (2.0-7.7); Basophil# 0.08 X10^3/uL; Basophil% 0.8 % (0-1); Eosinophil# 0.29 X10^3/uL; Hematocrit 27.6 % (37-47); Hemoglobin 8.4 g/dl (12.0-15.0); Lymphocyte # 2.87 X10^3/ul (4.0); Lymphocyte % 29.7 % (19-41); Mean Corp Hgb Conc 30.4 g/gl (32-36); Mean Corpuscular Hgb 28.8 pg (27.0-32.0); Mean Corpuscular Volume 94.5 fL (81-99); Mean Platelet Vol. 10.3 fl (6.2-12.0); Monocyte# 0.84 X10^3/uL; Monocyte% 8.7 % (0-10); Neutrophil # 5.45 X10^3/uL (2.7-7.7); Neutrophil % 56.5 % (47-70); Platelet Count 239 K/mm3 (150-450); RBC Distribution Width SD 55.4 fl (35.1-43.9); Red Blood Count 2.92 M/mm3 (4.2-5.4); White Blood Count 9.7 K/mm3 (4.4-11.0)
[2018-08-27 08:25] LABS: POSITIVE COUNT NO; POSITIVE DIFFERENTIAL NO; POSITIVE MORPHOLOGY NO
[2018-08-27 08:38] LABS: Anion Gap 3 (5-15); BUN 21 mg/dL (7-18); BUN/Creat Ratio 30.4 RATIO (10-20); Calcium,Total 8.1 mg/dL (8.5-10.1); Chloride 103 mmol/L (98-107); Creatinine, Serum 0.69 mg/dL (0.55-1.02); EST Glomerular Filtration Rate 94 mL/min (>60); Est Glom Filt Rate - Afr Amer 114 mL/min (>60); Glucose 82 mg/dL (74-106); Sodium Level 139 mmol/L (136-145)
== END ==
LOC: OLS.AVEA 05:00
PROVIDERS: Visit Provider Family Medicine
DX: I48.91 Unspecified atrial fibrillation (principal)
CPT/HCPCS: 36415; 80048; 85025

== ENCOUNTER 2018-08-31 20:10 | Emergency (ER) | payer MEDICAID, SELFPAY ==
[2018-08-31 20:10] VITALS: BP 143/70; PULSE 89; RESP 24; TEMP 36.7; O2SAT 93; BMI 40.5
--- NOTE | 2018-08-31 21:23 | EKG12_ITS ---
Test Reason : CP Blood Pressure : / mmHG Vent. Rate : 091 BPM Atrial Rate : 091 BPM P-R Int : 170 ms QRS Dur : 080 ms QT Int : 378 ms P-R-T Axes : 040 026 051 degrees QTc Int : 464 ms Normal sinus rhythm Normal ECG Confirmed by SAMANTHA CHRISTIAN, KORI ([id number]), manuscript editor ALLISON ROSE ([id number]) on 09/03/2018 1:26:32 PM Referred By: BB Confirmed By:KORI SINGH MD
--- NOTE | 2018-08-31 21:23 | RAD_ITS ---
HISTORY: CHEST PAIN EXAM: XR Chest 1 View COMPARISON: 08/04/18 CTA chest. FINDINGS: LINES/DEVICES: None. LUNGS: No evidence of pneumothorax, pneumonia, or pulmonary edema. Chronic right lateral rib fractures with adjacent mild atelectasis/scarring. Mild blunting of the costophrenic sulci again demonstrated. MEDIASTINUM AND CARDIOVASCULAR STRUCTURES: Cardiac silhouette not enlarged. Central airways and mediastinal contour are unremarkable. BONES AND SOFT TISSUES: Chronic right lateral rib fractures. RAD/Chest 1 View (Portable) IMPRESSION: No significant change. Mild blunting the costophrenic sulci suggestive of small pleural effusions. at 2145 Reported and signed by: Dima Manzanares MD Electronically Signed: Dima Manzanares, at 21:44 EDT Tel , Service support ,
--- NOTE | 2018-08-31 21:24 | ED.VIS.GEN ---
History of Present Illness Chief Complaint: Chest Pain Informant: Patient Onset: Hours - 24 Context: Gradual Onset Timing: Continuous Quality: burning Location: right chest, beneath breast. occ radiates down RUE. Current Severity: Moderate Maximum Severity: Moderate Worsened by: swallowing anything. nonpleuritic. resides in SNF and does not exert self. Relieved by: nothing. tried tums last night. Associated Symptoms: nausea. no sob, vomiting, palpitations, near-syncope. Narrative: Patient states she has no history of heart disease. No recent leg swelling or pain. Discomfort is nonpleuritic. States she has had this before but it has been persistent for the last 24 hours. - Past Medical History (1) Atrial fibrillation with RVR Status: Chronic (2) Morbid obesity Status: Chronic (3) Pneumonia Status: Resolved Past Medical History - Allergies and Home Meds Allergies/Adverse Reactions: Allergies aspirin Allergy (Verified 08/31/18 20:20) Swelling erythromycin base [Erythromycin Base] Allergy (Verified 08/31/18 20:20) Anaphylaxis Penicillins Allergy (Verified 08/31/18 20:20) Anaphylaxis venom-honey bee [bee venom (honey bee)] Adverse Reaction (Verified 08/31/18 20:20) Other Primary Care Physician: Abisai Riuz MD [Primary Care Provider] - Surgical History: hysterectomy, - - Left ankle surgery, left arm carpal tunnel surgery, tonsillectomy. Lives: [facility] Smoking Status: Never smoker - Family History Maternal Family History: Reports: - - Patient denies any marked maternal or paternal family history including heart disease, diabetes or cancer. Paternal Family History: Reports: - - Patient denies any marked maternal or paternal family history including heart disease, diabetes or cancer. Review of Systems General: Denies: Chills, Fever, Sweats Eyes: Denies: Visual changes - bilaterally, Diplopia ENT: Denies: Rhinorrhea, Sore throat Cardiovascular: Reports: Chest pain Respiratory: Denies: Dyspnea, Cough, Dyspnea on exertion Gastrointestinal: Reports: Nausea. Denies: Abdominal pain, Vomiting, Diarrhea, Melena, Hematochezia Musculoskeletal: Denies: Neck pain, Swelling, Extremity Pain Skin: Denies: Rash, Wounds Neurological: Denies: Headache, Weakness, Numbness Physical Exam Vital Signs/Narrative: Vital Signs Temp Pulse Resp BP Pulse Ox 08/31/18 20:10 98.1 F 89 24 H 143/70 H 93 Inital Vital Signs reviewed: Yes General: Well nourished, Well developed, Obese, No Acute Distress Head: Normocephalic, Atraumatic Eyes: Perrl, EOMI ENT: Moist mucous membranes, No rhinorrhea Neck: Supple, Nontender Cardiovascular: Regular rate, Regular rhythm, No murmurs Respiratory: No distress, CTA bilaterally, Chest tenderness - Right inframammary, reproducing her discomfort. No rash. No crepitance or subcutaneous emphysema. Abdomen: Soft, Nontender, Nondistended, Normal bowel sounds Back: Nontender, Normal Inspection Extremities: Nontender, No edema. Negative for: Calf Tenderness Skin: Normal color, No rash, No Trauma Neurological: Alert, Oriented x3, Cranial nerves II-XII grossly intact, Normal Strength, Normal Sensation Psychological: Normal affect, Normal Mood Diagnostic/Tx/Re-eval Impressions Chest X-Ray 08/31/18 21:23 IMPRESSION: No significant change. Mild blunting the costophrenic sulci suggestive of small pleural effusions. at 2145 Reported and signed by: Dima Manzanares MD Electronically Signed: Dima Manzanares, at 21:44 EDT Tel , Service support , 08/31/18 21:23 Chest 1 View (Portable) [RAD] Stat Laboratory Results 08/31/18 08/31/18 21:40 21:40 WBC 8.2 RBC 2.96 L Hgb 8.7 L Hct 27.8 L MCV 93.9 MCH 29.4 MCHC 31.3 L RDW 15.9 H RDW Differential 54.7 H Plt Count 253 MPV 9.1 Immature Gran % (Auto) 1.500 H Neut % (Auto) 47.5 Lymph % (Auto) 36.6 [place] % (Auto) 9.3 Eos % (Auto) 4.0 Baso % (Auto) 1.1 H Absolute Neuts (auto) 3.9 Absolute Lymphs (auto) 2.99 Total Counted Not Reportable Sodium 140 Potassium 3.7 Chloride 105 Carbon Dioxide 31.0 Anion Gap 4 L BUN 21 H Creatinine 0.77 Estim Creat Clear Calc 70.45 Est GFR (MDRD) Af Amer 99 Est GFR (MDRD) Non-Af 82 BUN/Creatinine Ratio 27.2 H Glucose 86 Calcium 8.0 L Troponin I < 0.015 - Rhythm Strip Rhythm Strip: Sinus Rhythm Rate: 90 Ectopy: None - EKG Initial EKG Interpretation: Sinus Rhythm, No Acute Injury Pattern - Normal EKG. - Medical Decision Making Patient has stable anemia with a hemoglobin of 8.7, her troponin is negative with a normal EKG, unremarkable chest x-ray, and the rest of her labs are unremarkable. Furthermore, her discomfort is a most completely resolved just after taking a GI cocktail. This is consistent with her symptoms and the impression of her esophagus being related to her discomfort as opposed to it being cardiac. I think she is [facility], she is already on a PPI and advised to continue that. ED Disposition - Plan for ED Patient: Disposition: Home or Assisted Living Diagnosis: Chest pain, unspecified Instructions: ED Chest Pain NonCardiac Referrals: Abisai Ruiz MD [Primary Care Provider] - 3-5 Days if not improving
--- NOTE | 2018-08-31 21:27 | ED.DCSUM_ITS ---
History of Present Illness Chief Complaint: Chest Pain Informant: Patient Onset: Hours - 24 Context: Gradual Onset Timing: Continuous Quality: burning Location: right chest, beneath breast. occ radiates down RUE. Current Severity: Moderate Maximum Severity: Moderate Worsened by: swallowing anything. nonpleuritic. resides in SNF and does not exert self. Relieved by: nothing. tried tums last night. Associated Symptoms: nausea. no sob, vomiting, palpitations, near-syncope. Narrative: Patient states she has no history of heart disease. No recent leg swelling or pain. Discomfort is nonpleuritic. States she has had this before but it has be en persistent for the last 24 hours. - Past Medical History (1) Atrial fibrillation with RVR Status: Chronic (2) Morbid obesity Status: Chronic (3) Pneumonia Status: Resolved Past Medical History - Allergies and Home Meds Allergies/Adverse Reactions: Allergies aspirin Allergy (Verified 08/31/18 20:20) Swelling erythromycin base [Erythromycin Base] Allergy (Verified 08/31/18 20:20) Anaphylaxis Penicillins Allergy (Verified 08/31/18 20:20) Anaphylaxis venom-honey bee [bee venom (honey bee)] Adverse Reaction (Verified 08/31/18 20:20) Other Primary Care Physician: Abisai Ruiz MD [Primary Care Provider] - Surgical History: hysterectomy, - - Left ankle surgery, left arm carpal tunnel surgery, tonsillectomy. [facility] Smoking Status: Never smoker - Family History Maternal Family History: Reports: - - Patient denies any marked maternal or paternal family history including heart disease, diabetes or cancer. Paternal Family History: Reports: - - Patient denies any marked maternal or paternal family history including heart disease, diabetes or cancer. Review of Systems General: Denies: Chills, Fever, Sweats Eyes: Denies: Visual changes - bilaterally, Diplopia ENT: Denies: Rhinorrhea, Sore throat Cardiovascular: Reports: Chest pain Respiratory: Denies: Dyspnea, Cough, Dyspnea on exertion Gastrointestinal: Reports: Nausea. Denies: Abdominal pain, Vomiting, Diarrhea, Melena, Hematochezia Musculoskeletal: Denies: Neck pain, Swelling, Extremity Pain Skin: Denies: Rash, Wounds Neurological: Denies: Headache, Weakness, Numbness Physical Exam Vital Signs/Narrative: Vital Signs Temp Pulse Resp BP Pulse Ox 08/31/18 20:10 98.1 F 89 24 H 143/70 H 93 Inital Vital Signs reviewed: Yes General: Well nourished, Well developed, Obese, No Acute Distress Head: Normocephalic, Atraumatic Eyes: Perrl, EOMI ENT: Moist mucous membranes, No rhinorrhea Neck: Supple, Nontender Cardiovascular: Regular rate, Regular rhythm, No murmurs Respiratory: No distress, CTA bilaterally, Chest tenderness - Right inframammary, reproducing her discomfort. No rash. No crepitance or subcuta neous emphysema. Abdomen: Soft, Nontender, Nondistended, Normal bowel sounds Back: Nontender, Normal Inspection Extremities: Nontender, No edema. Negative for: Calf Tenderness Skin: Normal color, No rash, No Trauma Neurological: Alert, Oriented x3, Cranial nerves II-XII grossly intact, Normal Strength, Normal Sensation Psychological: Normal affect, Normal Mood Diagnostic/Tx/Re-eval Impressions Chest X-Ray 08/31/18 21:23 IMPRESSION: No significant change. Mild blunting the costophrenic sulci suggestive of small pleural effusions. at 2145 Reported and signed by: Dima Manzanares MD Electronically Signed: Dima Manzanares, at 21:44 EDT Tel , Service support , 08/31/18 21:23 Chest 1 View (Portable) [RAD] Stat Laboratory Results 08/31/18 08/31/18 21:40 21:40 WBC 8.2 RBC 2.96 L Hgb 8.7 L Hct 27.8 L MCV 93.9 MCH 29.4 MCHC 31.3 L RDW 15.9 H RDW Differential 54.7 H Plt Count 253 MPV 9.1 Immature Gran % (Auto) 1.500 H Neut % (Auto) 47.5 Lymph % (Auto) 36.6 [place] % (Auto) 9.3 Eos % (Auto) 4.0 Baso % (Auto) 1.1 H Absolute Neuts (auto) 3.9 Absolute Lymphs (auto) 2.99 Total Counted Not Reportable Sodium 140 Potassium 3.7 Chloride 105 Carbon Dioxide 31.0 Anion Gap 4 L BUN 21 H Creatinine 0.77 Estim Creat Clear Calc 70.45 Est GFR (MDRD) Af Amer 99 Est GFR (MDRD) Non-Af 82 BUN/Creatinine Ratio 27.2 H Glucose 86 Calcium 8.0 L Troponin I < 0.015 - Rhythm Strip Rhythm Strip: Sinus Rhythm Rate: 90 Ectopy: None - EKG Initial EKG Interpretation: Sinus Rhythm, No Acute Injury Pattern - Normal EKG. - Medical Decision Making Patient has stable anemia with a hemoglobin of 8.7, her troponin is negative with a normal EKG, unremarkable chest x-ray, and the rest of her labs are unremarkable. Furthermore, her discomfort is a most completely resolved just after taking a GI cocktail. This is consistent with her symptoms and the impression of her esophagus being related to her discomfort as opposed to it being cardiac. I think she is stable to be discharged back to the [facility], she is already on a PPI and advised to continue that. ED Disposition - Plan for ED Patient: Disposition: Home or Assisted Living Diagnosis: Chest pain, unspecified Instructions: ED Chest Pain NonCardiac Referrals: Abisai Ruiz MD [Primary Care Provider] - 3-5 Days if not improving
[2018-08-31 21:47] LABS: Absolute Lymphocyte Count 2.99 X10^3/ul (0.83-4.51); Absolute Neutrophil Count 3.9 X10^3/uL (2.0-7.7); Basophil# 0.09 X10^3/uL; Basophil% 1.1 % (0-1); Eosinophil# 0.33 X10^3/uL; Hematocrit 27.8 % (37-47); Hemoglobin 8.7 g/dl (12.0-15.0); Lymphocyte # 2.99 X10^3/ul (4.0); Lymphocyte % 36.6 % (19-41); Mean Corp Hgb Conc 31.3 g/gl (32-36); Mean Corpuscular Hgb 29.4 pg (27.0-32.0); Mean Corpuscular Volume 93.9 fL (81-99); Mean Platelet Vol. 9.1 fl (6.2-12.0); Monocyte# 0.76 X10^3/uL; Monocyte% 9.3 % (0-10); Neutrophil # 3.88 X10^3/uL (2.7-7.7); Neutrophil % 47.5 % (47-70); Platelet Count 253 K/mm3 (150-450); RBC Distribution Width CV 15.9 % (11.6-14.6); RBC Distribution Width SD 54.7 fl (35.1-43.9); Red Blood Count 2.96 M/mm3 (4.2-5.4); White Blood Count 8.2 K/mm3 (4.4-11.0)
[2018-08-31] MEDS: Ondansetron 4 MG/2 ML Vial IV (21:47)
[2018-08-31] MEDS: Mag Hydrox/Al Hydrox/Simeth 30 ML UDC PO (21:47)
[2018-08-31 21:49] LABS: POSITIVE COUNT NO; POSITIVE DIFFERENTIAL NO; POSITIVE MORPHOLOGY NO
[2018-08-31 21:50] VITALS: BP 112/96; PULSE 88; RESP 18; O2SAT 91
[2018-08-31 22:05] LABS: Anion Gap 4 (5-15); BUN 21 mg/dL (7-18); BUN/Creat Ratio 27.2 RATIO (10-20); Chloride 105 mmol/L (98-107); Creatinine, Serum 0.77 mg/dL (0.55-1.02); EST Glomerular Filtration Rate 82 mL/min (>60); Est Glom Filt Rate - Afr Amer 99 mL/min (>60); Estimated Creatinine Clearance 70.45 ml/min; Glucose 86 mg/dL (74-106); Potassium 3.7 mmol/L (3.5-5.1); Sodium Level 140 mmol/L (136-145)
[2018-08-31 23:37] VITALS: BP 145/75; PULSE 89; RESP 18; O2SAT 92
== END 2018-08-31 23:39 | disposition home or self-care (01) ==
PROVIDERS: Emergency Provider Emergency Medicine; Family Provider Family Medicine; PCP Family Medicine
DX: R07.9 Chest pain, unspecified (principal); I48.0 Paroxysmal atrial fibrillation; E66.01 Morbid (severe) obesity due to excess calories; Z79.02 Long term (current) use of antithrombotics/antiplatelets
CPT/HCPCS: 71045; 80048; 84484; 85025; 93005; 96374; 99285; A4216; J2405

== ENCOUNTER 2018-09-04 20:42 | Emergency (ER) | payer MEDICAID, SELFPAY ==
[2018-09-04 20:44] VITALS: BP 130/84; PULSE 91; RESP 22; TEMP 36.8; O2SAT 96; BMI 41.0
--- NOTE | 2018-09-04 21:55 | RAD_ITS ---
STUDY: X-RAY - LEFT KNEE REASON FOR EXAM: Female, 58 years old. Left knee pain for 3 days. TECHNIQUE: 4 view(s) of the knee. COMPARISON: None. FINDINGS: Normal visualized distal femur. Normal visualized proximal tibia and fibula. Normal proximal tibiofibular articulation. Normal medial femorotibial compartment. Normal lateral femorotibial compartment. Normal patellofemoral articulation. Vascular calcifications. RAD/Knee 4 or More Views IMPRESSION: Negative for fracture, dislocation, osteolytic or blastic bone lesion. Mild degenerative narrowing of the medial compartment. Vascular calcifications. Electronically Signed: Maya Perry MD at 22:08 EDT , Service support ,
--- NOTE | 2018-09-04 22:13 | ED.RN ---
PT ARRIVED TO [facility] WITH ATTENDS ON. PT WAS INCONTINENT OF URINE & STOOL, THIS NURSE AND VERONA PHILLIPS RN. CHANGED PT AND NOTICED MULTIPLE OPEN AREAS TO COCCYX AREA. INCONTINENT CARE PROVIDED AND NEW ATTENDS PLACED.
--- NOTE | 2018-09-04 22:51 | ED.VISSUMM ---
- ER Visit Summary Date of Service: 09/04/18 Chief Complaint: Atraumatic left knee pain History of Present Illness: The patient is a 58 F history of anemia and is a [facility] patient. She is somewhat of a limited informant. States that on Sunday she moves her leg in bed heard a pop in her left knee has had pain since that time. Normally she is nonambulatory. She had a significant illness earlier this year in which after hospitalization she was placed in a correction for rehabilitation. Physical Examination: Middle-aged female no acute distress. Vital signs stable afebrile. HEENT exam unremarkable. Neck nontender. Lungs clear to auscultation. Heart regular rhythm no murmur. Chest nontender. Abdomen is soft nontender, nondistended normal bowel sounds no peritoneal signs. She is morbidly obese. Remedies she has mild tenderness to palpation her left knee. There is no effusion. No swelling. No signs of septic joint. Is not red or warm. She has weakness in both lower extremities. She states that is chronic. She has normal DP pulses. Dorsi plantar flexion intact. There is no gross bony deformities to either leg. And is no signs of trauma to either leg. Hips are nontender. There is no cords. Both lower extremities have equal and symmetrical trace edema. Neurologically she is awake and alert. She has lower extremity weakness which is chronic. She does have sensation. Test Results: X-ray of the left knee was obtained shows no acute abnormality. Chronic degenerative joint space narrowing medially on the left knee. No fracture and no large effusion. Read both by myself and radiologist. Emergency Department Course and Treatment: Repeat exam unchanged. Treatment Plan: Discharge back to the nursing facility. Ice to the knee. Motrin for pain. Follow-up with your doctor if not improving. Disposition: Discharge Impression: Left knee pain secondary to arthritis This note was generated with [employer] dictation software. It may contain incorrect words, spelling, and punctuation that were not noted in review of the chart prior to signing ED Disposition - Plan for ED Patient: Referrals: Abisai Ruiz MD [Primary Care Provider] -
--- NOTE | 2018-09-04 22:54 | ED.DCSUM_ITS ---
- ER Visit Summary Date of Service: 09/04/18 Chief Complaint: Atraumatic left knee pain History of Present Illness: The patient is a 58 F history of anemia and is a [facility] patient. She is somewhat of a limited informant. States that on Sunday she moves her leg in bed heard a pop in her left knee has had pain since that time. Normally she is nonambulatory. She had a significant illness earlier this year in which after hospitalization she was placed in a [facility] for rehabilitation. Physical Examination: Middle-aged female no acute distress. Vital signs stable afebrile. HEENT exam unremarkable. Neck nontender. Lungs clear to auscultation. Heart regular rhythm no murmur. Chest nontender. Abdomen is soft nontender, nondistended normal bowel sounds no peritoneal signs. She is morbidly obese. Remedies she has mild tenderness to palpation her left knee. There is no effusion. No swelling. No signs of septic joint. Is not red or warm. She has weakness in both lower extremities. She states that is chronic. She has normal DP pulses. Dorsi plantar flexion intact. There is no gross bony deformities to either leg. And is no signs of trauma to either leg. Hips are nontender. There is no cords. Both lower extremities have equal and symmetrical trace edema. Neurologically she is awake and alert. She has lower extremity weakness which is chronic. She does have sensation. Test Results: X-ray of the left knee was obtained shows no acute abnormality. Chronic degenerative joint space narrowing medially on the left knee. No fracture and no large effusion. Read both by myself and radiologist. Emergency Department Course and Treatment: Repeat exam unchanged. Treatment Plan: Discharge back to the nursing facility. Ice to the knee. Motrin for pain. Follow-up with your doctor if not improving. Disposition: Discharge Impression: Left knee pain secondary to arthritis This note was generated with [employer] dictation software. It may contain incorrect words, spelling, and punctuation that were not noted in review of the chart prior to signing ED Disposition - Plan for ED Patient: Referrals: Abisai Ruiz MD [Primary Care Provider] -
--- NOTE | 2018-09-04 22:54 | ED.DEP ---
ED Disposition - Plan for ED Patient: Disposition: Home or Assisted Living Instructions: ED Degenerative Joint Disease Referrals: Abisai Ruiz MD [Primary Care Provider] - 3-5 Days if not improving Additional Instructions: Ice to the knee. Motrin for pain. Follow-up with your doctor if not improving.
--- NOTE | 2018-09-04 22:59 | ED.RN ---
REPORT CALLED TO [facility]
== END 2018-09-04 23:24 | disposition home or self-care (01) ==
PROVIDERS: Emergency Provider Emergency Medicine; Family Provider Family Medicine; PCP Family Medicine
DX: M17.12 Unilateral primary osteoarthritis, left knee (principal)
CPT/HCPCS: 73564; 99284

== ENCOUNTER 2018-09-10 19:32 | Emergency (ER) | payer MEDICAID, SELFPAY ==
[2018-09-10 19:33] VITALS: BP 124/70; PULSE 98; RESP 17; TEMP 36.6; O2SAT 95; BMI 42.2
[2018-09-10 19:40] VITALS: O2SAT 94
--- NOTE | 2018-09-10 19:48 | EKG12_ITS ---
Test Reason : CP Blood Pressure : / mmHG Vent. Rate : 096 BPM Atrial Rate : 096 BPM P-R Int : 162 ms QRS Dur : 088 ms QT Int : 362 ms P-R-T Axes : 039 024 015 degrees QTc Int : 457 ms Normal sinus rhythm Low voltage QRS Nonspecific ST and T wave abnormality Abnormal ECG Confirmed by CARLOS BOO ([id number]), film or videotape editor TAMMIE WHEELER ([id number]) on 09/16/2018 3:31:24 PM Referred By: DEREK Confirmed By:CARLOS BOO
--- NOTE | 2018-09-10 19:48 | RAD_ITS ---
STUDY: X-RAY CHEST REASON FOR EXAM: Female, 58 years old. Chest pain TECHNIQUE: Single frontal view of the chest. COMPARISON: None. FINDINGS: The lungs are clear and expanded. There is no demonstrated pleural abnormality. Stable cardiomediastinal silhouette. Normal mediastinum and mary. Normal visualized pulmonary arteries. Normal visualized aortic arch and descending thoracic aorta. Normal visualized thoracic spine. Normal visualized ribs, clavicles, and shoulders. There is no demonstrated abnormality of the visualized soft tissue structures of the upper abdomen. RAD/Chest 1 View (Portable) IMPRESSION: No acute pulmonary findings. Electronically Signed: Jose Barnes MD at 20:14 EDT Tel , Service support ,
--- NOTE | 2018-09-10 19:51 | ED.DCSUM_ITS ---
- ER Visit Summary Date of Service: 09/10/18 Chief Complaint: Chest pain History of Present Illness: The patient is a 58 F who complains of right chest pain for the past couple of days. She states that radiates down her arm and down into her right abdomen. Pain is worse with palpation and movement of her arm. Patient was seen here for the same on August 31. She does not have significant cardiac history. Physical Examination: Vital signs unremarkable. Patient sitting upright in bed no acute distress. Heart is regular rate and rhythm. Lungs sounds are clear. She has reproducible right chest wall tenderness. No crepitus. Abdomen is soft and nontender. Extremity examination is unremarkable. Test Results: Patient did have CBC and chemistry studies drawn earlier today. These are reviewed and reveal stable anemia with a hemoglobin of 8.7. EKG tonight reveals sinus rhythm at 96 bpm with diffuse T wave flattening. No ST change. Portable chest x-ray shows no acute findings. Troponin is less than 0.015. Emergency Department Course and Treatment: Patient has had multiple weeks of pain with negative cardiac work-up. She has reproducible tenderness over the chest wall. She will continue her medications at the custodial. Treatment Plan: [] Disposition: Discharge Impression: Chest wall pain This note was generated with [employer] dictation software. It may contain incorrect words, spelling, and punctuation that were not noted in review of the chart prior to signing ED Disposition - Plan for ED Patient: Disposition: Home or Assisted Living Instructions: ED Strain Chest Wall Referrals: Abisai Ruiz MD [Primary Care Provider] - 3-5 Days if not improving
[2018-09-10 20:39] VITALS: BP 135/75; PULSE 91; RESP 17; O2SAT 97
[2018-09-10] MEDS: Ibuprofen 600 MG Tablet PO (21:06)
[2018-09-10 21:07] VITALS: BP 129/67; PULSE 96; RESP 18; O2SAT 96
--- NOTE | 2018-09-10 21:23 | NURSING ---
ATTEMPTED TO CALL REPORT TO [facility] BUT THEY PUT ME ON HOLD AND NEVER ANSWERED
== END 2018-09-10 22:41 | disposition skilled nursing facility (03) ==
PROVIDERS: Emergency Provider Emergency Medicine; Family Provider Family Medicine; PCP Family Medicine
DX: R07.89 Other chest pain (principal); I10 Essential (primary) hypertension; I48.91 Unspecified atrial fibrillation; D64.9 Anemia, unspecified; F31.9 Bipolar disorder, unspecified; F20.9 Schizophrenia, unspecified; Z79.82 Long term (current) use of aspirin; Z79.899 Other long term (current) drug therapy; Z87.891 Personal history of nicotine dependence
CPT/HCPCS: 36415; 71045; 80048; 84484; 85025; 93005; 99285; A4216

== ENCOUNTER → 2018-09-10 | Outpatient (REF) | payer MEDICAID, SELFPAY ==
[2018-09-04 20:44] VITALS: BMI 41.0
[2018-09-10 07:36] LABS: Absolute Lymphocyte Count 2.52 X10^3/ul (0.83-4.51); Absolute Neutrophil Count 3.9 X10^3/uL (2.0-7.7); Basophil# 0.07 X10^3/uL; Basophil% 0.9 % (0-1); Eosinophil# 0.37 X10^3/uL; Eosinophils% 4.9 % (0-5); Hematocrit 27.6 % (37-47); Hemoglobin 8.7 g/dl (12.0-15.0); Lymphocyte # 2.52 X10^3/ul (4.0); Lymphocyte % 33.5 % (19-41); Mean Corp Hgb Conc 31.5 g/gl (32-36); Mean Corpuscular Hgb 29.3 pg (27.0-32.0); Mean Corpuscular Volume 92.9 fL (81-99); Mean Platelet Vol. 9.3 fl (6.2-12.0); Monocyte# 0.55 X10^3/uL; Monocyte% 7.3 % (0-10); Neutrophil # 3.92 X10^3/uL (2.7-7.7); Neutrophil % 52.1 % (47-70); Platelet Count 259 K/mm3 (150-450); RBC Distribution Width CV 15.4 % (11.6-14.6); RBC Distribution Width SD 52.4 fl (35.1-43.9); Red Blood Count 2.97 M/mm3 (4.2-5.4); White Blood Count 7.5 K/mm3 (4.4-11.0)
[2018-09-10 07:43] LABS: Anion Gap 6 (5-15); BUN 17 mg/dL (7-18); Calcium,Total 8.2 mg/dL (8.5-10.1); Chloride 106 mmol/L (98-107); Creatinine, Serum 0.74 mg/dL (0.55-1.02); EST Glomerular Filtration Rate 86 mL/min (>60); Est Glom Filt Rate - Afr Amer 104 mL/min (>60); Glucose 82 mg/dL (74-106); Potassium 3.7 mmol/L (3.5-5.1); Sodium Level 143 mmol/L (136-145)
[2018-09-10 07:46] LABS: POSITIVE COUNT NO; POSITIVE DIFFERENTIAL NO; POSITIVE MORPHOLOGY NO
== END | disposition home or self-care (01) ==
LOC: OLS.AVED 06:43
PROVIDERS: Visit Provider Family Medicine
DX: D64.9 Anemia, unspecified (principal)
CPT/HCPCS: 36415; 80048; 85025

== ENCOUNTER 2018-09-14 18:53 | Emergency (ER) | payer MEDICAID, SELFPAY ==
[2018-09-14 18:54] VITALS: BP 151/65; PULSE 98; RESP 18; TEMP 37; O2SAT 93; BMI 39.2
--- NOTE | 2018-09-14 19:14 | RAD_ITS ---
STUDY: X-RAY - SOFT TISSUE NECK REASON FOR EXAM: Female, 58 years old. SORE THROAT X 3 DAYS TECHNIQUE: 2 view(s) of the neck were obtained. COMPARISON: None. FINDINGS: Normal visualized nasopharynx, oropharynx, hypopharynx. Normal epiglottis. Normal visualized subglottic tracheal air column. Normal prevertebral soft tissue structures. Normal visualized osseous structures. The soft tissue structures are unremarkable. RAD/Neck for Soft Tissue IMPRESSION: Normal x-ray soft tissue neck. Electronically Signed: Nish Aggarwal MD at 20:06 EDT , Service support ,
--- NOTE | 2018-09-14 19:14 | CT_ITS ---
STUDY: CT ABDOMEN AND PELVIS WITHOUT CONTRAST REASON FOR EXAM: Female, 58 years old. Abdominal pain. RADIATION DOSAGE (If Supplied By Facility): CTDIvol = ( 18.23 ) mGy, DLP = ( 965.79 ) mGycm TECHNIQUE: Transaxial images were obtained from the dome of the diaphragm to the symphysis pubis without oral contrast, and without intravenous contrast. Sagittal and coronal images were reconstructed. Individualized dose optimization techniques were used for this CT. COMPARISON: 08/22/2018, 08/26/2018.. FINDINGS: Stable bilateral small pleural effusions and mild atelectasis in the lower lobes. Stable appearance of the liver which shows marked fatty infiltration and hepatomegaly and stable parenchymal calcifications of uncertain etiology or significance. Small contracted gallbladder without definite stones. Pancreas, spleen, and adrenal glands are unremarkable. Normal right kidney. Normal left kidney. Evaluation of the GI tract is limited by absence of oral contrast. Cannot exclude stomach wall thickening. No dilated loops of bowel or evidence for obstruction. Cannot exclude segmental thickening of the andino of the small or large bowel. Cannot exclude enteritis or colitis. Moderate diffuse fecal retention. Improving fecal retention in the rectosigmoid. Appendix within normal limits. There is diffuse atherosclerotic calcification of the abdominal aorta, without a demonstrated aneurysm. Normal inferior vena cava. Normal retroperitoneum. Normal urinary bladder. There is absence of the uterus consistent with a prior hysterectomy. Stable increased soft tissue density in the presacral space. Normal abdominal wall. Stable multilevel degenerative changes of the spine and partial compression fracture of L1. CT/Abdomen/Pelvis without Cont IMPRESSION: Decreased fecal retention in the rectosigmoid. No other changes. Electronically Signed: Nish Aggarwal MD at 20:05 EDT , Service support ,
--- NOTE | 2018-09-14 19:17 | ED.DCSUM_ITS ---
History of Present Illness Chief Complaint: General Illness Informant: Patient Onset: Days - 3 Narrative: 3-day history of sore throat and lower abdominal pain. She is progressing. Reports feels a knot in her throat. Pain with swallowing. No fevers. Nausea, denies vomiting or diarrhea. Normal bowel movements. No urinary symptoms. Patient reports had a cardiac arrest this past May has been at the [facility] currently nonambulatory. History of hysterectomy. Currently nauseated. Records were reviewed, in May, admitted for septic shock with pneumonia and respiratory failure. She did go into cardiac arrest secondary to septic shock. She had multiorgan failure. She was dialysis secondary to this. She is discharged to nursing facility. Prior similar symptoms: No Past Medical History - Allergies and Home Meds Allergies/Adverse Reactions: Allergies aspirin Allergy (Verified 09/14/18 18:54) Swelling erythromycin base [Erythromycin Base] Allergy (Verified 09/14/18 18:54) Anaphylaxis Penicillins Allergy (Verified 09/14/18 18:54) Anaphylaxis venom-honey bee [bee venom (honey bee)] Adverse Reaction (Verified 09/14/18 18:54) Other Primary Care Physician: Abisai Ruiz MD [Primary Care Provider] - Surgical History: hysterectomy, - - Left ankle surgery, left arm carpal tunnel surgery, tonsillectomy. Smoking Status: Former smoker - Family History Maternal Family History: Reports: - - Patient denies any marked maternal or paternal family history including heart disease, diabetes or cancer. Paternal Family History: Reports: - - Patient denies any marked maternal or paternal family history including heart disease, diabetes or cancer. Review of Systems General: Denies: Chills, Fever, Sweats Eyes: Denies: Visual changes - bilaterally, Diplopia ENT: Reports: Sore throat. Denies: Rhinorrhea Cardiovascular: Denies: Chest pain, Palpitations Respiratory: Denies: Dyspnea, Cough, Dyspnea on exertion Gastrointestinal: Reports: Abdominal pain, Nausea. Denies: Vomiting, Diarrhea, Melena, Hematochezia Genitourinary: Denies: Dysuria, Hematuria, Frequency Musculoskeletal: Denies: Back pain, Extremity Pain Skin: Denies: Rash, Wounds Neurological: Denies: Headache, Weakness, Numbness Physical Exam Vital Signs/Narrative: Vital Signs Temp Pulse Resp BP Pulse Ox 09/14/18 18:54 98.6 F 98 18 151/65 H 93 Inital Vital Signs reviewed: Yes General: Well nourished, Well developed, No Acute Distress Head: Normocephalic, Atraumatic Eyes: Perrl, EOMI ENT: Moist mucous membranes, No rhinorrhea, - - Mild erythema posterior pharynx, minimal sized tonsils bilaterally. Uvula midline. Airway patent. No trismus. Neck: Supple, Nontender, No lymphadenopathy Cardiovascular: Regular rate, Regular rhythm, No murmurs Respiratory: No distress, CTA bilaterally, Chest nontender Abdomen: Soft, Nondistended, Normal bowel sounds, - - Minimal lower abdominal tenderness bilaterally without guarding or rebound. Negative Smith's or McBurney's tenderness. Back: Nontender, Normal Inspection Extremities: Nontender, No edema Skin: Normal color, No rash Neurological: Alert, Oriented x3, Cranial nerves II-XII grossly intact, Normal Strength, Normal Sensation Psychological: Normal affect, Normal Mood Diagnostic/Tx/Re-eval Abnormal Lab Results 09/14/18 09/14/18 09/14/18 19:25 19:25 19:25 WBC 7.7 RBC 3.15 L Hgb 9.1 L Hct 28.8 L MCV 91.4 MCH 28.9 MCHC 31.6 L RDW 15.3 H RDW Differential 51.2 H Plt Count 225 MPV 9.4 Immature Gran % (Auto) 0.800 Neut % (Auto) 51.1 Lymph % (Auto) 35.3 [place] % (Auto) 8.3 Eos % (Auto) 3.2 Baso % (Auto) 1.3 H Absolute Neuts (auto) 4.0 Absolute Lymphs (auto) 2.73 Total Counted Not Reportable Sodium 141 Potassium 3.4 L Chloride 105 Carbon Dioxide 30.0 Anion Gap 6 BUN 17 Creatinine 0.82 Estim Creat Clear Calc 66.15 Est GFR (MDRD) Af Amer 92 Est GFR (MDRD) Non-Af 76 BUN/Creatinine Ratio 20.6 H Glucose 96 Calcium 8.1 L Total Bilirubin 0.30 Direct Bilirubin 0.15 AST 38 H ALT 25 Alkaline Phosphatase 160 H Total Protein 5.9 L Albumin 1.9 L Globulin 4.0 Albumin/Globulin Ratio 0.[address] abdomen pelvis resolving impaction, no acute process. Rapid strep negative. - Medical Decision Making Patient nontoxic, nonsurgical abdomen. Her sore throat rapid strep negative. Treated with Decadron and Tylenol. Abdominal labs normal. She is chronic anemia. Currently not on dialysis. Renal function normal. Noncontrast CT scan with no acute process. Report from radiology could not rule out bowel thickening, she has no diarrhea or vomiting. She is normal bowel movements per patient. Discussed with patient fluids Tylenol as needed. Followed up as an outpatient. Discharge back to rehab facility. Signs and symptoms discussed return. All questions were answered. ED Disposition - Plan for ED Patient: Disposition: Home or Assisted Living Diagnosis: Nonspecific abdominal pain, Acute pharyngitis, Chronic anemia Instructions: ED Abdominal Pain Unkn Cause, ED Pharyngitis Viral Referrals: Abisai Ruiz MD [Primary Care Provider] - 2 Days
[2018-09-14 19:37] LABS: Absolute Lymphocyte Count 2.73 X10^3/ul (0.83-4.51); Basophil% 1.3 % (0-1); Eosinophil# 0.25 X10^3/uL; Eosinophils% 3.2 % (0-5); Hematocrit 28.8 % (37-47); Hemoglobin 9.1 g/dl (12.0-15.0); Lymphocyte # 2.73 X10^3/ul (4.0); Lymphocyte % 35.3 % (19-41); Mean Corp Hgb Conc 31.6 g/gl (32-36); Mean Corpuscular Hgb 28.9 pg (27.0-32.0); Mean Corpuscular Volume 91.4 fL (81-99); Mean Platelet Vol. 9.4 fl (6.2-12.0); Monocyte# 0.64 X10^3/uL; Monocyte% 8.3 % (0-10); Neutrophil # 3.96 X10^3/uL (2.7-7.7); Neutrophil % 51.1 % (47-70); Platelet Count 225 K/mm3 (150-450); RBC Distribution Width CV 15.3 % (11.6-14.6); RBC Distribution Width SD 51.2 fl (35.1-43.9); Red Blood Count 3.15 M/mm3 (4.2-5.4); White Blood Count 7.7 K/mm3 (4.4-11.0)
[2018-09-14 19:47] LABS: ALB/GLOB Ratio 0.5 RATIO (0.9-2.4); AST(SGOT) 38 U/L (15-37); Alanine Aminotransfer ALT/SGPT 25 U/L (13-56); Albumin, Serum 1.9 g/dL (3.2-5.0); Alkaline Phosphatase 160 U/L (45-117); Anion Gap 6 (5-15); BUN 17 mg/dL (7-18); BUN/Creat Ratio 20.6 RATIO (10-20); Bilirubin, Direct 0.15 mg/dL (0.00-0.30); Calcium,Total 8.1 mg/dL (8.5-10.1); Chloride 105 mmol/L (98-107); Creatinine, Serum 0.82 mg/dL (0.55-1.02); EST Glomerular Filtration Rate 76 mL/min (>60); Est Glom Filt Rate - Afr Amer 92 mL/min (>60); Estimated Creatinine Clearance 66.15 ml/min; Glucose 96 mg/dL (74-106); Potassium 3.4 mmol/L (3.5-5.1); Protein, Total 5.9 g/dL (6.4-8.2); Sodium Level 141 mmol/L (136-145)
[2018-09-14] MEDS: Ondansetron 4 MG/2 ML Vial IV (19:49)
[2018-09-14] MEDS: Acetaminophen 500 MG Tablet 1000 MG PO (20:30)
[2018-09-14] MEDS: dexAMETHasone 4 MG Tablet 12 MG PO (20:30)
[2018-09-14 20:34] LABS: POSITIVE COUNT NO; POSITIVE DIFFERENTIAL NO; POSITIVE MORPHOLOGY NO
[2018-09-14 20:58] LABS: Lipase 113 U/L (73-393)
[2018-09-14 22:11] VITALS: BP 135/68; PULSE 90; RESP 18; O2SAT 98
== END 2018-09-14 22:30 | disposition home or self-care (01) ==
PROVIDERS: Emergency Provider Emergency Medicine; Family Provider Family Medicine; PCP Family Medicine
DX: J02.9 Acute pharyngitis, unspecified (principal); R10.30 Lower abdominal pain, unspecified; D64.9 Anemia, unspecified; Z87.891 Personal history of nicotine dependence
CPT/HCPCS: 70360; 74176; 80053; 80076; 83690; 85025; 87880; 96374; 99285; A4216; J2405